=== PATIENT | male | born 1940 | race Caucasian/White ===

== ENCOUNTER 2017-01-03 12:45 | Inpatient (IN) | payer MEDICARE ==
[~2017-01-03] VITALS: Ht 185.4 cm; Wt 86.2 kg
[~2017-01-03 12:45] MED LIST: AMIO200T2 PO; ASPI81TA9 PO; BUDE0.5A3 IH; CLIN-44 PO; DILT240C32 PO; FEXO60TA25 PO; FINA5TAB4 PO; FLUT16SP NS; FORM12CA IH; IPRA3AMP IH; LEVO50TA5 PO; LIPITOR80 MG PO; PROAIR HFA8.5 GM IH
--- NOTE | 2017-01-03 13:20 | ED.ADGEN ---
Past Medical History Past Medical History: A-Fib, Asthma, COPD, CVA, High Cholesterol, Heart Disease , Hypothyroid Past Surgical History: Pacemaker, Other Additional Past Surgical Histo: CARDIAC STENT, LEFT HAND AND SHOULER, BILAT KNEE Alcohol Use: None Drug Use: None Adult General Chief Complaint Chief Complaint: SHORTNESS OF BREATH HPI HPI Patient is a 76 year old man, history of atrial fibrillation, with pacemaker AICD in place, CVA, hypertension, COPD, hypercholesterolemia, who presents the emergency department with complaint of shortness of breath over the past several days. It is associated with lightheadedness, shortness breath occurs with exertion, none at rest. No chest pain. No nausea, other GI or symptoms. Denies similar symptoms previously. Patient was seen by his primary care provider yesterday, was told that it could be a virus, was told to come back today for additional evaluation, when he returns today, was noted to be hypoxic with an oxygen saturation low 90s, with no improvement in his symptoms, and was sent to the ED for additional evaluation. Oxygen saturation is 93% on room air, denies any weakness, numbness or tingling, nausea or vomiting, states that the shortness of breath associated with a cough, no productive of sputum, no fevers , no chills, pneumonia and influenza vaccinations are up-to-date. No history of DVT or PE. Patient takes Coumadin daily, INR was last checked approximately 3 weeks ago was 2 at that time. No recent travel or surgery, no change in medication or missed doses of medication. Review of Systems Review of Systems Constitutional: Denies fever or chills. [] Eyes: Denies change in visual acuity. [] HENT: Denies nasal congestion or sore throat. [] Respiratory: Cough, nonproductive, shortness of breath.] Cardiovascular: Denies chest pain or edema. [] GI: Denies abdominal pain, nausea, vomiting, bloody stools or diarrhea. [] : Denies dysuria. [] Musculoskeletal: Denies back pain or joint pain. [] Integument: Denies rash. [] Neurologic: Denies headache, focal weakness or sensory changes. [] Endocrine: Denies polyuria or polydipsia. [] Lymphatic: Denies swollen glands. [] Psychiatric: Denies depression or anxiety. [] Current Medications Current Medications Current Medications Medications (Trade) Dose Ordered Sig/Negar Start Time Stop Time Status Last Admin Dose Admin Acetaminophen (Tylenol) 650 mg PRN Q4HRS PRN 01/03/17 14:45 01/04/17 14:44 Albuterol/ Ipratropium (Duoneb) 3 ml RTQID 01/03/17 16:00 01/04/17 15:59 Ondansetron HCl 4 mg 4 mg PRN Q8HRS PRN 01/03/17 14:45 01/04/17 14:44 Oseltamivir Phosphate (Tamiflu) 75 mg BID 01/03/17 15:00 01/07/17 21:01 Sodium Chloride (Iv Sodium Chloride 0.9% 1000ml Bag) 1,000 ml @ 100 mls/hr Q10H 01/03/17 14:43 01/04/17 14:42 Allergies Allergies Allergies Coded Allergies Type Severity Reaction Last Updated Verified levofloxacin Allergy Severe RUPTURE OF ACHILLES TENDON 03/22/14 Yes fluticasone Allergy Intermediate MAKES SORES 03/22/14 Yes salmeterol Allergy Intermediate MAKES SORES 03/22/14 Yes Sulfa (Sulfonamide Antibiotics) Allergy Mild "MAKES SORES" 03/22/14 Yes budesonide Allergy Mild RASH 03/22/14 Yes amiodarone Allergy Unknown 03/13/16 Yes montelukast Allergy Unknown EAR PAIN 03/22/14 Yes Physical Exam Physical Exam Constitutional: Well developed, well nourished, no acute distress, non-toxic appearance. [] HENT: Normocephalic, atraumatic, bilateral external ears normal, oropharynx moist, no oral exudates, nose normal. [] Eyes: PERRLA, EOMI, conjunctiva normal, no discharge. [] Neck: Normal range of motion, no tenderness, supple, no stridor. [] Cardiovascular:Heart rate regular rhythm, no murmur, S1, S2, no rubs or gallops. [] Lungs & Thorax: Patient with rhonchi noted on the left, no wheezing, no rales, no chest wall tenderness or crepitus, no lesions identified. [] Abdomen: Bowel sounds normal, soft, no tenderness, no masses, no pulsatile masses. [] Skin: Warm, dry, no erythema, no rash. [] Back: No tenderness, no CVA tenderness. [] Extremities: No tenderness, no cyanosis, no clubbing, ROM intact, no edema. Negative Homans sign. [] Neurologic: Alert and oriented X 3, normal motor function, normal sensory function, no focal deficits noted. [] Psychologic: Affect normal, judgement normal, mood normal. [] Current Patient Data Vital Signs Vital Signs Date Time Temp Pulse Resp B/P Pulse Ox O2 Delivery O2 Flow Rate FiO2 01/03/17 12:53 98.2 94 20 180/73 93 Room Air 98.2 Lab Values Laboratory Tests Test 01/03/17 13:19 01/03/17 13:49 01/03/17 13:58 White Blood Count 4.0x10^3/uL (4.0-11.0) Red Blood Count 5.23x10^6/uL (4.30-5.70) Hemoglobin 15.3g/dL (13.0-17.5) Hematocrit 44.2% (39.0-53.0) Mean Corpuscular Volume 85fL (79-100) Mean Corpuscular Hemoglobin 29pg (25-35) Mean Corpuscular Hemoglobin Concent 35g/dL (31-37) Red Cell Distribution Width 14.6% (11.5-14.5) H Platelet Count 161x10^3/uL (140-400) Neutrophils (%) (Auto) 88% (31-73) H Lymphocytes (%) (Auto) 8% (24-48) L Monocytes (%) (Auto) 4% (0-9) Eosinophils (%) (Auto) 0% (0-3) Basophils (%) (Auto) 1% (0-3) Neutrophils # (Auto) 3.5x10^3uL (1.8-7.7) Lymphocytes # (Auto) 0.3x10^3/uL (1.0-4.8) L Monocytes # (Auto) 0.2x10^3/uL (0.0-1.1) Eosinophils # (Auto) 0.0x10^3/uL (0.0-0.7) Basophils # (Auto) 0.0x10^3/uL (0.0-0.2) Platelet Estimate Pending Prothrombin Time 23.8SEC (11.7-14.0) H Prothrombin Time INR 2.3 (0.8-1.1) H PTT 54SEC (24-38) H Sodium Level 135mmol/L (136-145) L Potassium Level 4.7mmol/L (3.5-5.1) Chloride Level 102mmol/L (98-107) Carbon Dioxide Level 23mmol/L (21-32) Anion Gap 10 (6-14) Blood Urea Nitrogen 27mg/dL (8-26) H Creatinine 1.1mg/dL (0.7-1.3) Estimated GFR (Cockcroft-Gault) 65.1 BUN/Creatinine Ratio 25 (6-20) H Glucose Level 137mg/dL (70-99) H Calcium Level 9.4mg/dL (8.5-10.1) Total Bilirubin 0.8mg/dL (0.2-1.0) Aspartate Amino Transferase (AST) 42U/L (15-37) H Alanine Aminotransferase (ALT) 23U/L (16-63) Alkaline Phosphatase 87U/L (46-116) Troponin I Quantitative 0.048ng/mL (0.000-0.055) NS-Ytj-S-Type Natriuretic Peptide 800pg/mL (0-449) H Total Protein 8.2g/dL (6.4-8.2) Albumin 2.9g/dL (3.4-5.0) L Albumin/Globulin Ratio 0.5 (1.0-1.7) L Influenza Type A Antigen Negative (NEGATIVE) Influenza Type B Antigen Positive (NEGATIVE) Urine Collection Type Unknown Urine Color Yellow Urine Clarity Clear Urine pH 5.0 Urine Specific Tyler 1.020 Urine Protein Negativemg/dL (NEG-TRACE) Urine Glucose (UA) Negativemg/dL (NEG) Urine Ketones (Stick) Negativemg/dL (NEG) Urine Blood Negative (NEG) Urine Nitrite Negative (NEG) Urine Bilirubin Negative (NEG) Urine Urobilinogen Dipstick 1.0mg/dL (0.2 mg/dL) Urine Leukocyte Esterase Negative (NEG) Urine RBC 0/HPF (0-2) Urine WBC 0/HPF (0-4) Urine Squamous Epithelial Cells Few/LPF Urine Bacteria 0/HPF (0-FEW) Urine Hyaline Casts Occasional/HPF Urine Mucus Marked/LPF Laboratory Tests 01/03/17 13:19 Laboratory Tests 01/03/17 13:19 EKG EKG EC: Left axis deviation with nonspecific and ventricular block noted, patient with history of AICD placement, patient is in sinus rhythm, QTC is 508, RI 178, heart rate of 104, QRS of 166, do not visualize pacemaker spikes. Abnormal ECG. As interpreted by me. [] Radiology/Procedures Radiology/Procedures Pacemaker interrogation performed at bedside with [employer]: Pacemaker is functioning properly, patient in sinus rhythm, no concerning events recorded. Report attached and chart. [] Impressions: [facility] [address] [place] [address] IMAGING REPORT Signed PATIENT: NAMRATA MAHAJAN ACCOUNT: [id number] : 1940 LOCATION: ER AGE: 76 SEX: M EXAM STATUS: PRE ER ORD. PHYSICIAN: CECILIA FLOREZ DO REASON: SOA PROCEDURE: PORTABLE CHEST 1V Examination: Single frontal view of the chest History: History of shortness of breath, cough Comparison: 05/17/2016 Findings: The cardiomediastinal silhouette grossly appears unremarkable. A left-sided cardiac pacer is unchanged. There is no acute infiltrate or visualized pneumothorax identified. Impression: No acute cardiopulmonary findings. DICTATED and SIGNED BY: BARBRA VELASQUEZ MD DATE: 01/03/17 1331 CC: CECILIA FLOREZ DO; JOHNNY MATIAS DO ~ Course & Med Decision Making Course & Med Decision Making Pertinent Labs and Imaging studies reviewed. (See chart for details) No history of supplemental oxygen use. Patient with hypoxia, 88% on room air at rest, fluctuates up into the low 90s, coarse breath sounds noted bilaterally but especially in the left lung field, chest x-ray does not reveal any evidence of infiltrate. Patient with a positive influenza type B swab in the emergency department. I believe that his examination and symptoms are consistent with a viral etiology. No indications for antibiotics or additional imaging at this time. I did discuss findings with patient at bedside, due to his degree of hypoxia, generalized weakness and malaise he is agreeable for admission to the hospital for continued monitoring and treatment, including nebulizer treatments , Tamiflu, and supportive measures as stated. Patient now relates that he had a positive flu exposure among family members, and was treated with Tamiflu prophylactically several weeks ago. As stated, he did receive his influenza vaccination. Findings as above discussed with Dr. Figueroa of internal medicine, patient accepted to her service as a full admission to the medical telemetry floor for monitoring, supportive measures as stated above, bridge orders entered per discussion. Dragon Disclaimer Dragon Disclaimer This electronic medical record was generated, in whole or in part, using a voice recognition dictation system. Departure Impression: Primary Impression: Influenza B Additional Impressions: Hypoxia COPD (chronic obstructive pulmonary disease) COPD exacerbation Disposition: ADMITTED INPATIENT Admitting Physician: Other Condition: IMPROVED Problem Qualifiers Additional Impressions: COPD (chronic obstructive pulmonary disease) COPD type: COPD with acute exacerbation Qualified Code: J44.1 - Chronic obstructive pulmonary disease with (acute) exacerbation CECILIA FLOREZ DO Jan 03, 2017 13:20
--- NOTE | 2017-01-03 13:35 | RAD ---
Examination: Single frontal view of the chest History: History of shortness of breath, cough Comparison: 05/17/2016 Findings: The cardiomediastinal silhouette grossly appears unremarkable. A left-sided cardiac pacer is unchanged. There is no acute infiltrate or visualized pneumothorax identified. Impression: No acute cardiopulmonary findings.
[2017-01-03 13:40] LABS: BASO % 1 % (0-3); EOS % 0 % (0-3); HEMATOCRIT 44.2 % (39.0-53.0); HEMOGLOBIN 15.3 g/dL (13.0-17.5); LYMPH # 0.3 x10^3/uL (1.0-4.8); LYMPH % 8 % (24-48); MEAN CORPUSCULAR HEMOGLOBIN 29 pg (25-35); MEAN CORPUSCULAR HGB CONC 35 g/dL (31-37); MEAN CORPUSCULAR VOLUME 85 fL (79-100); MONO % 4 % (0-9); NEUT % 88 % (31-73); PLATELET COUNT 161 x10^3/uL (140-400); RED BLOOD COUNT 5.23 x10^6/uL (4.30-5.70); RED CELL DISTRIBUTION WIDTH 14.6 % (11.5-14.5)
--- NOTE | 2017-01-03 13:43 | EKG ---
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
[2017-01-03 13:44] LABS: CALCIUM 9.4 mg/dL (8.5-10.1); CREATININE 1.1 mg/dL (0.7-1.3); GFR 65.1; POTASSIUM 4.7 mmol/L (3.5-5.1)
[2017-01-03 13:50] LABS: ALBUMIN 2.9 g/dL (3.4-5.0); ALBUMIN/GLOBULIN RATIO 0.5 (1.0-1.7); TOTAL BILIRUBIN 0.8 mg/dL (0.2-1.0); TOTAL PROTEIN 8.2 g/dL (6.4-8.2)
[2017-01-03 14:05] LABS: BILIRUBIN,URINE NEGATIVE (NEG); GLUCOSE,URINE NEGATIVE (NEG); NITRITE,URINE NEGATIVE (NEG); PROTEIN,URINE NEGATIVE (NEG-TRACE)
[2017-01-03 14:25] LABS: OBC FLU VALID
[2017-01-03 14:31] LABS: BACTERIA,URINE 0 /HPF (0-FEW); RBC,URINE 0 /HPF (0-2); WBC,URINE 0 /HPF (0-4)
[2017-01-03 14:32] LABS: SQUAMOUS EPITHELIAL CELL,UR FEW /LPF
[2017-01-03 14:34] LABS: INR 2.3 (0.8-1.1); PROTHROMBIN TIME PATIENT 23.8 SEC (11.7-14.0)
[2017-01-03] MEDS ORDERED: IPRATRPIUM/ALBUTEROL 0.5/2.5MG 3 ML NEBU. NEB ONE (14:45)
[2017-01-03] MEDS ORDERED: ACETAMINOPHEN 325 MG TABLET. PO PRN (14:45)
[2017-01-03] MEDS ORDERED: ONDANSETRON PF 4 MG/2 ML VIAL. IV PRN (14:45)
[2017-01-03] MEDS ORDERED: FINA5TAB PO ×2 (15:06→16:09)
[2017-01-03] MEDS ORDERED: WARF3TAB PO (15:06)
[2017-01-03] MEDS ORDERED: NITR0.4T6 SL (15:07)
[2017-01-03] MEDS: OSELTAMIVIR 75 MG CAPSULE PO SCH ×2 (15:22→20:57)
[2017-01-03] MEDS: IV NORMAL SALINE 1000ML BAG 1,000 ML IV SCH (15:23)
[2017-01-03] MEDS ORDERED: IPRATRPIUM/ALBUTEROL 0.5/2.5MG 3 ML NEBU. NEB SCH (16:00)
[2017-01-03] MEDS ORDERED: AMOX1TAB61 PO (16:09)
[2017-01-03] MEDS ORDERED: PRED20TA PO (16:09)
[2017-01-03] MEDS ORDERED: ALBU8.5H5 IH (16:09)
[2017-01-03] MEDS ORDERED: GUAI12003 PO (16:09)
[2017-01-03 16:17] VITALS: BP 141/86
[2017-01-03 16:31] LABS: PLT ESTIMATE ADEQUATE (ADEQUATE); TOXIC GRANULATION SLIGHT; TOXIC VACUOLATION SLIGHT
--- NOTE | 2017-01-03 17:15 | ACF ---
Admission Forms Criteria COPD Clinical Indications for Admission to Inpatient Care (Place 'X' for any and all applicable criteria): Admission is indicated for ANY ONE of the following (1)(2)(3): [ ]I. Acute exacerbation by high-risk comorbidity (e.g., pneumonia, dysrhythmia, heart failure, pleural effusion, pneumothorax) or severe underlying COPD (e.g., steroid dependent) [X]II. Inpatient admission required rather than observation care (see Chronic Obstructive Pulmonary Disease: Observation Care) because of ANY ONE of the following: [X]a) New or pre-existing signs or symptoms of COPD (eg, dyspnea or Tachypnea at rest or with minimal activity) that persist despite outpatient and observation care treatment [ ]b) New-onset hypoxemia (room air SaO2 less than 90%, PO2 less than 60 mm Hg (8.0 kPa)) that persists despite outpatient and observation care treatment [ ]c) Worsening of pre-existing hypoxemia (eg, new or increased requirement for supplemental oxygen to maintain oxygenation at baseline level) that persists despite outpatient and observation care treatment, with oxygen treatment needs performable only in acute inpatient setting [ ]d) Hypercarbia (PCO2 greater than 40 mm Hg (5.3 kPa))-induced respiratory acidosis (pH less than 7.35) that persists despite outpatient and observation care treatment [ ]e) Supplemental oxygen or respiratory treatments for over 24 hours that are performable only in acute inpatient setting [ ]f) Chest tube placement with active evacuation (e.g., suction, drainage) (5) [ ]g) Other condition, treatment or monitoring requiring inpatient admission [ ]III. Planned invasive surgical or diagnostic procedures requiring acute- care hospitalization [ ]IV. Acute respiratory failure (e.g., uncompensated hypercarbia, severe hypoxemia) [ ]V. Severe comorbid condition (e.g., severe steroid myopathy, acute vertebral fracture) that has acutely worsened pulmonary function [ ]. Confusion state, lethargy, obtundation, stupor or coma Extended stay beyond goal length of stay may be needed for (31)(32): [ ]a ) Respiratory Failure. [ ]b) Severe or persisting hypoxemia or hypercarbia [ ]c) Severe or persistent dyspnea [ ]d) Comorbidities (e.g. chronic heart failure, atrial fibrillation with rapid response, pneumonia) [ ]e) Malnutrition The original [facility] content created by [facility] has been revised. The portions of the content which have been revised are identified through the use of italic text or in bold, and [facility] has neither reviewed nor approved the modified material. All other unmodified content is copyright [facility]. Please see references footnoted in the original [facility] edition 2016 Admission Criteria Met?: Yes HENRRY SOTO Jan 03, 2017 17:15
[2017-01-03] MEDS: IPRATRPIUM/ALBUTEROL 0.5/2.5MG 3 ML NEBU. NEB SCH (19:07)
[2017-01-03 19:30] VITALS: BP 143/78
[2017-01-03] MEDS ORDERED: NITROGLYCERIN SUBLINGUAL 0.4 MG BOTTLE OF 25. SL PRN (20:00)
[2017-01-03] MEDS ORDERED: methylPREDNISolone SOD SUCC PF 125 MG/2 ML VIAL. IV ONE (20:30)
[2017-01-03] MEDS: ATORVASTATIN CALCIUM 40 MG TABLET. PO SCH (20:57)
[2017-01-03] MEDS: WARFARIN 3 MG TABLET. PO SCH (20:57)
[2017-01-03] MEDS ORDERED: IPRATRPIUM/ALBUTEROL 0.5/2.5MG 3 ML NEBU. IH SCH (21:00)
--- NOTE | 2017-01-03 21:41 | HP ---
ADMIT DATE: 01/03/2017 CHIEF COMPLAINT: Shortness of breath. HISTORY OF PRESENT ILLNESS: The patient is a 76-year-old never smoker who carries a diagnosis of COPD as well as CAD, AFib, high cholesterol, hypothyroidism, who presented to the Emergency Room with worsening shortness of breath. He is unable to actually tell me how many days or weeks this has been going on. He relates it has been getting worse over the past several days. Has significant shortness of breath with exertion. Denies any at rest, although clearly does not appear comfortable. Currently denies any chest pain, any palpitations, fevers, chills or GI, symptoms. He relates that he was admitted to the hospital about 3 years ago when he had a pacemaker placement, but cannot remember that he was ever admitted for COPD. In the Emergency Room, he was found with hypoxia on room air. Flu screen was positive for influenza B and he was promptly admitted for further management and care. PAST MEDICAL HISTORY: COPD, CAD, AFib, hypertension, hypercholesterolemia, hypothyroidism, osteoarthritis, status post bilateral knee surgeries as well as hand and shoulder on the left. FAMILY HISTORY: The patient denies any diseases in his family, although questionable. SOCIAL HISTORY: Lives with his . Never smoked. Denies any alcohol or drug use. 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 ALLERGIES: SULFA, AMIODARONE, BUDESONIDE, FLUTICASONE, LEVAQUIN, MONTELUKAST AND SALMETEROL. MEDICATIONS: MAR reconciled with home medications. REVIEW OF SYSTEMS: Positive for respiratory symptoms as above. No fevers, chills. No GI symptoms. Rest of organ system review is negative. PHYSICAL EXAMINATION: VITAL SIGNS: From today show a blood pressure of 148/86, heart rate of 94, respiratory rate is 16. He is afebrile. GENERAL: This is a well-nourished, well developed 76-year-old gentleman, alert and oriented, in no acute distress. HEENT: Shows no scleral icterus. NECK: Supple. LUNGS: Fairly clear bilaterally, but with upper airway rhonchi. CARDIOVASCULAR: Heart has regular rate and rhythm. ABDOMEN: Has positive bowel sounds, soft, nontender. EXTREMITIES: Show no edema. SKIN: Warm, soft and dry. LABORATORY DATA: CBC with a WBC of 4.0, hemoglobin 15, platelets of 161. Differential with 88% neutrophils. Chemistries with a BUN and creatinine of 27 and 1. Electrolytes within normal. LFTs within normal. Initial troponin and proBNP minimally elevated. Urine is negative. Serology for influenza B positive. Imaging shows a chest x-ray with no acute cardiopulmonary findings. ASSESSMENT AND PLAN: The patient is a 76-year-old gentleman who presents with significant shortness of breath, hypoxia and a diagnosis of influenza. We will admit, he has been started on Tamiflu, which will be continued. He will get a dose of methylprednisolone tonight for potential chronic obstructive pulmonary disease exacerbation. We will continue steroids in the morning. He will have nebulizers as well as supplemental O2. From a cardiology standpoint, he appears fairly stable at this time. We will continue all his home medications. He is on Coumadin for atrial fibrillation. We will continue that and monitoring INR. We will start proton pump inhibitor given the steroids he will be receiving. ALLYSON CHAO MD DR: MAXIMILIANO/oz JOB#: [id number] / [id number] [employer]
[2017-01-03 23:53] VITALS: BP 132/82
[2017-01-04] MEDS: ALBUTEROL SULFATE 2.5 MG/3 ML NEBU. NEB PRN (01:55)
[2017-01-04 03:00] VITALS: BP 129/82
[2017-01-04 07:00] VITALS: BP 130/75
[2017-01-04] MEDS: IPRATRPIUM/ALBUTEROL 0.5/2.5MG 3 ML NEBU. NEB SCH ×4 (07:47→20:10)
[2017-01-04] MEDS: OSELTAMIVIR 75 MG CAPSULE PO SCH ×2 (08:47→21:31)
[2017-01-04] MEDS: FINASTERIDE 5 MG TABLET PO SCH (08:47)
[2017-01-04] MEDS: PREDNISONE 20 MG TABLET PO SCH (08:47)
--- NOTE | 2017-01-04 09:02 | PDOC ---
PROGRESS NOTES Chief Complaint Chief Complaint Shortness of breath, Hypoxia History of Present Illness History of Present Illness No acute events overnight. Patient is coughing during evaluation but denies having a cough upon admission. He reports his shortness of breath is improving. Vitals Vitals Vital Signs Date Time Temp Pulse Resp B/P Pulse Ox O2 Delivery O2 Flow Rate FiO2 01/04/17 07:49 95 Room Air 01/04/17 07:00 96.1 88 14 130/75 2.0 96.1 Physical Exam General: Alert, Cooperative, No acute distress Heart: Regular rate, No murmurs Lungs: Clear, Other (no wheezing) Abdomen: Soft, No tenderness Extremities: No cyanosis, No edema Skin: No significant lesion Labs LABS Laboratory Tests Test 01/03/17 13:19 01/03/17 13:49 01/03/17 13:58 White Blood Count 4.0x10^3/uL (4.0-11.0) Red Blood Count 5.23x10^6/uL (4.30-5.70) Hemoglobin 15.3g/dL (13.0-17.5) Hematocrit 44.2% (39.0-53.0) Mean Corpuscular Volume 85fL (79-100) Mean Corpuscular Hemoglobin 29pg (25-35) Mean Corpuscular Hemoglobin Concent 35g/dL (31-37) Red Cell Distribution Width 14.6% (11.5-14.5) Platelet Count 161x10^3/uL (140-400) Neutrophils (%) (Auto) 88% (31-73) Lymphocytes (%) (Auto) 8% (24-48) Monocytes (%) (Auto) 4% (0-9) Eosinophils (%) (Auto) 0% (0-3) Basophils (%) (Auto) 1% (0-3) Neutrophils # (Auto) 3.5x10^3uL (1.8-7.7) Lymphocytes # (Auto) 0.3x10^3/uL (1.0-4.8) Monocytes # (Auto) 0.2x10^3/uL (0.0-1.1) Eosinophils # (Auto) 0.0x10^3/uL (0.0-0.7) Basophils # (Auto) 0.0x10^3/uL (0.0-0.2) Segmented Neutrophils % 69% (35-66) Band Neutrophils % 21% (0-9) Lymphocytes % 9% (24-48) Monocytes % 1% (0-10) Toxic Granulation Slight Toxic Vacuolation Slight Platelet Estimate Adequate (ADEQUATE) Prothrombin Time 23.8SEC (11.7-14.0) Prothromb Time International Ratio 2.3 (0.8-1.1) Activated Partial Thromboplast Time 54SEC (24-38) Sodium Level 135mmol/L (136-145) Potassium Level 4.7mmol/L (3.5-5.1) Chloride Level 102mmol/L (98-107) Carbon Dioxide Level 23mmol/L (21-32) Anion Gap 10 (6-14) Blood Urea Nitrogen 27mg/dL (8-26) Creatinine 1.1mg/dL (0.7-1.3) Estimated GFR (Cockcroft-Gault) 65.1 BUN/Creatinine Ratio 25 (6-20) Glucose Level 137mg/dL (70-99) Calcium Level 9.4mg/dL (8.5-10.1) Total Bilirubin 0.8mg/dL (0.2-1.0) Aspartate Amino Transf (AST/SGOT) 42U/L (15-37) Alanine Aminotransferase (ALT/SGPT) 23U/L (16-63) Alkaline Phosphatase 87U/L (46-116) Troponin I Quantitative 0.048ng/mL (0.000-0.055) OP-Imn-B-Type Natriuretic Peptide 800pg/mL (0-449) Total Protein 8.2g/dL (6.4-8.2) Albumin 2.9g/dL (3.4-5.0) Albumin/Globulin Ratio 0.5 (1.0-1.7) Influenza Type A Antigen Negative (NEGATIVE) Influenza Type B Antigen Positive (NEGATIVE) Urine Collection Type Unknown Urine Color Yellow Urine Clarity Clear Urine pH 5.0 Urine Specific [place] 1.020 Urine Protein Negativemg/dL (NEG-TRACE) Urine Glucose (UA) Negativemg/dL (NEG) Urine Ketones (Stick) Negativemg/dL (NEG) Urine Blood Negative (NEG) Urine Nitrite Negative (NEG) Urine Bilirubin Negative (NEG) Urine Urobilinogen Dipstick 1.0mg/dL (0.2 mg/dL) Urine Leukocyte Esterase Negative (NEG) Urine RBC 0/HPF (0-2) Urine WBC 0/HPF (0-4) Urine Squamous Epithelial Cells Few/LPF Urine Bacteria 0/HPF (0-FEW) Urine Hyaline Casts Occasional/HPF Urine Mucus Marked/LPF Review of Systems Review of Systems Denies chest pain, shortness of breath is improving. Denies fever and chills. Assessment and Plan Assessmemt and Plan Problems Medical Problems: (1) COPD (chronic obstructive pulmonary disease) Status: Acute (2) COPD exacerbation Status: Acute (3) Hypoxia Status: Acute (4) Influenza B Status: Acute ASSESSMENT: Influenza B Shortness of breath Hypoxia COPD CAD Afib Hypothyroidism PLAN: Continue tamiflu and steroids Continue nebulizers Supplemental oxygen as needed Continue coumadin Will monitor INR daily Continue fluids Trend daily labs Problems: Comment Review of Relevant I have reviewed the following items sarbjit (where applicable) has been applied. Labs Laboratory Tests Test 01/03/17 13:19 01/03/17 13:49 01/03/17 13:58 White Blood Count 4.0x10^3/uL (4.0-11.0) Red Blood Count 5.23x10^6/uL (4.30-5.70) Hemoglobin 15.3g/dL (13.0-17.5) Hematocrit 44.2% (39.0-53.0) Mean Corpuscular Volume 85fL (79-100) Mean Corpuscular Hemoglobin 29pg (25-35) Mean Corpuscular Hemoglobin Concent 35g/dL (31-37) Red Cell Distribution Width 14.6% (11.5-14.5) Platelet Count 161x10^3/uL (140-400) Neutrophils (%) (Auto) 88% (31-73) Lymphocytes (%) (Auto) 8% (24-48) Monocytes (%) (Auto) 4% (0-9) Eosinophils (%) (Auto) 0% (0-3) Basophils (%) (Auto) 1% (0-3) Neutrophils # (Auto) 3.5x10^3uL (1.8-7.7) Lymphocytes # (Auto) 0.3x10^3/uL (1.0-4.8) Monocytes # (Auto) 0.2x10^3/uL (0.0-1.1) Eosinophils # (Auto) 0.0x10^3/uL (0.0-0.7) Basophils # (Auto) 0.0x10^3/uL (0.0-0.2) Segmented Neutrophils % 69% (35-66) Band Neutrophils % 21% (0-9) Lymphocytes % 9% (24-48) Monocytes % 1% (0-10) Toxic Granulation Slight Toxic Vacuolation Slight Platelet Estimate Adequate (ADEQUATE) Prothrombin Time 23.8SEC (11.7-14.0) Prothromb Time International Ratio 2.3 (0.8-1.1) Activated Partial Thromboplast Time 54SEC (24-38) Sodium Level 135mmol/L (136-145) Potassium Level 4.7mmol/L (3.5-5.1) Chloride Level 102mmol/L (98-107) Carbon Dioxide Level 23mmol/L (21-32) Anion Gap 10 (6-14) Blood Urea Nitrogen 27mg/dL (8-26) Creatinine 1.1mg/dL (0.7-1.3) Estimated GFR (Cockcroft-Gault) 65.1 BUN/Creatinine Ratio 25 (6-20) Glucose Level 137mg/dL (70-99) Calcium Level 9.4mg/dL (8.5-10.1) Total Bilirubin 0.8mg/dL (0.2-1.0) Aspartate Amino Transf (AST/SGOT) 42U/L (15-37) Alanine Aminotransferase (ALT/SGPT) 23U/L (16-63) Alkaline Phosphatase 87U/L (46-116) Troponin I Quantitative 0.048ng/mL (0.000-0.055) QD-Ffe-P-Type Natriuretic Peptide 800pg/mL (0-449) Total Protein 8.2g/dL (6.4-8.2) Albumin 2.9g/dL (3.4-5.0) Albumin/Globulin Ratio 0.5 (1.0-1.7) Influenza Type A Antigen Negative (NEGATIVE) Influenza Type B Antigen Positive (NEGATIVE) Urine Collection Type Unknown Urine Color Yellow Urine Clarity Clear Urine pH 5.0 Urine Specific [place] 1.020 Urine Protein Negativemg/dL (NEG-TRACE) Urine Glucose (UA) Negativemg/dL (NEG) Urine Ketones (Stick) Negativemg/dL (NEG) Urine Blood Negative (NEG) Urine Nitrite Negative (NEG) Urine Bilirubin Negative (NEG) Urine Urobilinogen Dipstick 1.0mg/dL (0.2 mg/dL) Urine Leukocyte Esterase Negative (NEG) Urine RBC 0/HPF (0-2) Urine WBC 0/HPF (0-4) Urine Squamous Epithelial Cells Few/LPF Urine Bacteria 0/HPF (0-FEW) Urine Hyaline Casts Occasional/HPF Urine Mucus Marked/LPF Laboratory Tests Test 01/03/17 13:19 01/03/17 13:49 01/03/17 13:58 White Blood Count 4.0x10^3/uL (4.0-11.0) Red Blood Count 5.23x10^6/uL (4.30-5.70) Hemoglobin 15.3g/dL (13.0-17.5) Hematocrit 44.2% (39.0-53.0) Mean Corpuscular Volume 85fL (79-100) Mean Corpuscular Hemoglobin 29pg (25-35) Mean Corpuscular Hemoglobin Concent 35g/dL (31-37) Red Cell Distribution Width 14.6% (11.5-14.5) Platelet Count 161x10^3/uL (140-400) Neutrophils (%) (Auto) 88% (31-73) Lymphocytes (%) (Auto) 8% (24-48) Monocytes (%) (Auto) 4% (0-9) Eosinophils (%) (Auto) 0% (0-3) Basophils (%) (Auto) 1% (0-3) Neutrophils # (Auto) 3.5x10^3uL (1.8-7.7) Lymphocytes # (Auto) 0.3x10^3/uL (1.0-4.8) Monocytes # (Auto) 0.2x10^3/uL (0.0-1.1) Eosinophils # (Auto) 0.0x10^3/uL (0.0-0.7) Basophils # (Auto) 0.0x10^3/uL (0.0-0.2) Segmented Neutrophils % 69% (35-66) Band Neutrophils % 21% (0-9) Lymphocytes % 9% (24-48) Monocytes % 1% (0-10) Toxic Granulation Slight Toxic Vacuolation Slight Platelet Estimate Adequate (ADEQUATE) Prothrombin Time 23.8SEC (11.7-14.0) Prothromb Time International Ratio 2.3 (0.8-1.1) Activated Partial Thromboplast Time 54SEC (24-38) Sodium Level 135mmol/L (136-145) Potassium Level 4.7mmol/L (3.5-5.1) Chloride Level 102mmol/L (98-107) Carbon Dioxide Level 23mmol/L (21-32) Anion Gap 10 (6-14) Blood Urea Nitrogen 27mg/dL (8-26) Creatinine 1.1mg/dL (0.7-1.3) Estimated GFR (Cockcroft-Gault) 65.1 BUN/Creatinine Ratio 25 (6-20) Glucose Level 137mg/dL (70-99) Calcium Level 9.4mg/dL (8.5-10.1) Total Bilirubin 0.8mg/dL (0.2-1.0) Aspartate Amino Transf (AST/SGOT) 42U/L (15-37) Alanine Aminotransferase (ALT/SGPT) 23U/L (16-63) Alkaline Phosphatase 87U/L (46-116) Troponin I Quantitative 0.048ng/mL (0.000-0.055) HP-Qau-W-Type Natriuretic Peptide 800pg/mL (0-449) Total Protein 8.2g/dL (6.4-8.2) Albumin 2.9g/dL (3.4-5.0) Albumin/Globulin Ratio 0.5 (1.0-1.7) Influenza Type A Antigen Negative (NEGATIVE) Influenza Type B Antigen Positive (NEGATIVE) Urine Collection Type Unknown Urine Color Yellow Urine Clarity Clear Urine pH 5.0 Urine Specific [place] 1.020 Urine Protein Negativemg/dL (NEG-TRACE) Urine Glucose (UA) Negativemg/dL (NEG) Urine Ketones (Stick) Negativemg/dL (NEG) Urine Blood Negative (NEG) Urine Nitrite Negative (NEG) Urine Bilirubin Negative (NEG) Urine Urobilinogen Dipstick 1.0mg/dL (0.2 mg/dL) Urine Leukocyte Esterase Negative (NEG) Urine RBC 0/HPF (0-2) Urine WBC 0/HPF (0-4) Urine Squamous Epithelial Cells Few/LPF Urine Bacteria 0/HPF (0-FEW) Urine Hyaline Casts Occasional/HPF Urine Mucus Marked/LPF Medications Current Medications Oseltamivir Phosphate (Tamiflu) 75 mg BID PO Last administered on 01/04/17 08: 47; Start 01/03/17 at 15:00; Stop 01/07/17 at 21:01 Albuterol/ Ipratropium (Duoneb) 3 ml 1X ONCE NEB Last administered on 15:04; Start 01/03/17 at 14:45; Stop 01/03/17 at 14:46; Status DC Ondansetron HCl 4 mg 4 mg PRN Q8HRS PRN IV NAUSEA/VOMITING; Start 01/03/17 at 14:45; Stop 01/04/17 at 14:44 Sodium Chloride (Iv Sodium Chloride 0.9% 1000ml Bag) 1,000 ml @ 100 mls/hr Q10H IV Last administered on 01/03/17 15:23; Start 01/03/17 at 14:43; Stop at 14:42 Acetaminophen (Tylenol) 650 mg PRN Q4HRS PRN PO FEVER; Start 01/03/17 at 14:45 ; Stop 01/04/17 at 14:44 Albuterol/ Ipratropium (Duoneb) 3 ml RTQID NEB Last administered on 01/03/17 19:07; Start 01/03/17 at 16:00; Stop 01/03/17 at 19:58; Status DC Albuterol Sulfate (Ventolin Neb Soln) 2.5 mg PRN Q4HRS PRN NEB SHORTNESS OF BREATH Last administered on 01/04/17 01:55; Start 01/03/17 at 20:00 Finasteride (Proscar) 5 mg DAILY PO Last administered on 01/04/17 08:47; Start 01/04/17 at 09:00 Albuterol/ Ipratropium (Duoneb) 3 ml QID IH ; Start 01/03/17 at 21:00; Status UNV Nitroglycerin (Nitrostat) 0.4 mg PRN DAILY PRN SL angina; Start 01/03/17 at 20: 00 Warfarin Sodium (Coumadin) 3 mg DAILY16 PO Last administered on 01/03/17 20:57 ; Start 01/03/17 at 20:30 Atorvastatin Calcium (Lipitor) 80 mg QHS PO Last administered on 01/03/17 20: 57; Start 01/03/17 at 21:00 Methylprednisolone Sodium Succinate (Solu-Medrol 125mg Vial) 125 mg 1X ONCE IV Last administered on 01/03/17 20:57; Start 01/03/17 at 20:30; Stop 01/03/17 at 20:31; Status DC Prednisone (Prednisone) 40 mg DAILY PO Last administered on 01/04/17 08:47; Start 01/04/17 at 09:00 Albuterol/ Ipratropium (Duoneb) 3 ml RTQID NEB Last administered on 01/04/17 07:47; Start 01/03/17 at 20:00 Warfarin Sodium (Coumadin Per Physician) 1 each PRN DAILY PRN MC SEE COMMENTS; Start 01/03/17 at 20:00 Active Scripts Active Clindamycin Hcl 150 Mg Capsule 300 Mg PO QID 10 Days Reported Mucinex (Guaifenesin) 1,200 Mg Tbmp.12hr 1,200 Tab PO BID Augmentin 875-125 Tablet (Amoxicillin/Potassium Clav) 1 Each Tablet 1 Tab PO BID Prednisone 20 Mg Tablet 3 Tab PO DAILY Proair Hfa (Albuterol Sulfate) 8.5 Gm Hfa.aer.ad 9 Gm IH Proscar (Finasteride) 5 Mg Tablet 1 Tab PO DAILY NITROGLYCERIN SubLingual (Nitroglycerin) 0.4 Mg Tab.subl 1 Tab SL UD Coumadin (Warfarin Sodium) 3 Mg Tablet 1 Tab PO DAILY Duoneb 0.5-3(2.5) Mg/3 Ml (Albuterol/Ipratropium) 3 Ml Ampul.neb 3 Ml IH QID Proair Hfa Inhaler (Albuterol Sulfate) 8.5 Gm Hfa.aer.ad 1-2 Inh IH Q4-6 HRS PRN Lipitor (Atorvastatin Calcium) 80 Mg Tablet 80 Mg PO DAILY Vitals/I & O Vital Sign - Last 24 Hours 01/03/17 01/03/17 01/03/17 01/03/17 12:53 13:25 13:55 14:25 Temp 98.2 98.2 Pulse 94 90 92 88 Resp 20 24 20 24 B/P 180/73 149/73 151/81 147/74 Pulse Ox 93 93 91 94 O2 Delivery Room Air Room Air 01/03/17 01/03/17 01/03/17 01/03/17 14:55 15:08 15:25 16:17 Temp 97.5 97.5 Pulse 86 88 94 Resp 18 18 16 B/P 144/73 137/83 141/86 Pulse Ox 93 95 94 93 O2 Delivery Room Air Room Air Room Air 01/03/17 01/03/17 01/03/17 01/03/17 19:07 19:30 20:00 23:53 Temp 98.2 97.8 98.2 97.8 Pulse 89 107 Resp B/P 143/78 132/82 Pulse Ox 98 92 94 O2 Delivery Room Air Nasal Cannula Nasal Cannula O2 Flow Rate 2.0 2.0 2.0 01/04/17 01/04/17 01/04/17 01/04/17 01:56 02:00 03:00 07:00 Temp 97.7 96.1 97.7 96.1 Pulse 95 88 Resp 24 14 B/P 129/82 130/75 Pulse Ox 95 95 93 O2 Delivery Room Air Nasal Cannula Nasal Cannula Nasal Cannula O2 Flow Rate 3.0 2.0 2.0 01/04/17 07:49 Pulse Ox 95 O2 Delivery Room Air Intake and Output 01/03/17 01/03/17 01/04/17 15:00 23:00 07:00 Intake Total 100 ml Balance 100 ml JOYNIAL K III DO Jan 04, 2017 09:02
[2017-01-04 11:00] VITALS: BP 131/65
[2017-01-04] MEDS: IV NORMAL SALINE 1000ML BAG 1,000 ML IV SCH (12:22)
[2017-01-04 15:00] VITALS: BP 124/63
[2017-01-04] MEDS: WARFARIN 3 MG TABLET. PO SCH (16:38)
[2017-01-04 19:00] VITALS: BP 145/75
[2017-01-04] MEDS: ATORVASTATIN CALCIUM 40 MG TABLET. PO SCH (21:31)
[2017-01-04 23:00] VITALS: BP 126/73
[2017-01-05] MEDS: ALBUTEROL SULFATE 2.5 MG/3 ML NEBU. NEB PRN (01:00)
[2017-01-05 03:00] VITALS: BP 150/63
[2017-01-05 05:57] LABS: BASO % 0 % (0-3); EOS % 0 % (0-3); HEMATOCRIT 39.9 % (39.0-53.0); HEMOGLOBIN 13.2 g/dL (13.0-17.5); LYMPH # 0.8 x10^3/uL (1.0-4.8); LYMPH % 10 % (24-48); MEAN CORPUSCULAR HEMOGLOBIN 29 pg (25-35); MEAN CORPUSCULAR HGB CONC 33 g/dL (31-37); MEAN CORPUSCULAR VOLUME 87 fL (79-100); MONO % 9 % (0-9); NEUT % 81 % (31-73); PLATELET COUNT 143 x10^3/uL (140-400); RED BLOOD COUNT 4.58 x10^6/uL (4.30-5.70); RED CELL DISTRIBUTION WIDTH 14.2 % (11.5-14.5)
[2017-01-05] MEDS: IPRATRPIUM/ALBUTEROL 0.5/2.5MG 3 ML NEBU. NEB SCH ×3 (06:14→11:48)
[2017-01-05 06:19] LABS: CALCIUM 8.7 mg/dL (8.5-10.1); CREATININE 0.9 mg/dL (0.7-1.3); POTASSIUM 4.4 mmol/L (3.5-5.1)
[2017-01-05 06:42] LABS: INR 3.3 (0.8-1.1); PROTHROMBIN TIME PATIENT 31.8 SEC (11.7-14.0)
[2017-01-05 07:00] VITALS: BP 131/72
--- NOTE | 2017-01-05 08:13 | PDOC ---
PROGRESS NOTES Chief Complaint Chief Complaint cc: sob A/P Influenza COPD CAD Afib Hypothyroidism PLAN SOB resolved anticipated DC today, follow up with PCP. , oral AC History of Present Illness History of Present Illness DOING BETTER Vitals Vitals Vital Signs Date Time Temp Pulse Resp B/P Pulse Ox O2 Delivery O2 Flow Rate FiO2 01/05/17 06:14 Room Air 01/05/17 03:00 98.9 86 18 150/63 98 98.9 01/04/17 23:00 2.0 Physical Exam General: Alert, Cooperative, No acute distress Heart: Regular rate, Normal S1, Normal S2, No murmurs Lungs: Clear, Other (no wheezing) Abdomen: Normal bowel sounds, Soft, No tenderness Extremities: No cyanosis, No edema Skin: No significant lesion Labs LABS Laboratory Tests Test 01/05/17 05:20 White Blood Count 8.0x10^3/uL (4.0-11.0) Red Blood Count 4.58x10^6/uL (4.30-5.70) Hemoglobin 13.2g/dL (13.0-17.5) Hematocrit 39.9% (39.0-53.0) Mean Corpuscular Volume 87fL (79-100) Mean Corpuscular Hemoglobin 29pg (25-35) Mean Corpuscular Hemoglobin Concent 33g/dL (31-37) Red Cell Distribution Width 14.2% (11.5-14.5) Platelet Count 143x10^3/uL (140-400) Neutrophils (%) (Auto) 81% (31-73) Lymphocytes (%) (Auto) 10% (24-48) Monocytes (%) (Auto) 9% (0-9) Eosinophils (%) (Auto) 0% (0-3) Basophils (%) (Auto) 0% (0-3) Neutrophils # (Auto) 6.5x10^3uL (1.8-7.7) Lymphocytes # (Auto) 0.8x10^3/uL (1.0-4.8) Monocytes # (Auto) 0.7x10^3/uL (0.0-1.1) Eosinophils # (Auto) 0.0x10^3/uL (0.0-0.7) Basophils # (Auto) 0.0x10^3/uL (0.0-0.2) Prothrombin Time 31.8SEC (11.7-14.0) Prothromb Time International Ratio 3.3 (0.8-1.1) Sodium Level 141mmol/L (136-145) Potassium Level 4.4mmol/L (3.5-5.1) Chloride Level 109mmol/L (98-107) Carbon Dioxide Level 24mmol/L (21-32) Anion Gap 8 (6-14) Blood Urea Nitrogen 32mg/dL (8-26) Creatinine 0.9mg/dL (0.7-1.3) Estimated GFR (Cockcroft-Gault) 82.0 Glucose Level 104mg/dL (70-99) Calcium Level 8.7mg/dL (8.5-10.1) Assessment and Plan Assessmemt and Plan Problems Medical Problems: (1) COPD (chronic obstructive pulmonary disease) Status: Acute (2) COPD exacerbation Status: Acute (3) Hypoxia Status: Acute (4) Influenza B Status: Acute Problems: Comment Review of Relevant I have reviewed the following items sarbjit (where applicable) has been applied. Labs Laboratory Tests Test 01/03/17 13:19 01/03/17 13:49 01/03/17 13:58 01/05/17 05:20 White Blood Count 4.0x10^3/uL (4.0-11.0) 8.0x10^3/uL (4.0-11.0) Red Blood Count 5.23x10^6/uL (4.30-5.70) 4.58x10^6/uL (4.30-5.70) Hemoglobin 15.3g/dL (13.0-17.5) 13.2g/dL (13.0-17.5) Hematocrit 44.2% (39.0-53.0) 39.9% (39.0-53.0) Mean Corpuscular Volume 85fL (79-100) 87fL (79-100) Mean Corpuscular Hemoglobin 29pg (25-35) 29pg (25-35) Mean Corpuscular Hemoglobin Concent 35g/dL (31-37) 33g/dL (31-37) Red Cell Distribution Width 14.6% (11.5-14.5) 14.2% (11.5-14.5) Platelet Count 161x10^3/uL (140-400) 143x10^3/uL (140-400) Neutrophils (%) (Auto) 88% (31-73) 81% (31-73) Lymphocytes (%) (Auto) 8% (24-48) 10% (24-48) Monocytes (%) (Auto) 4% (0-9) 9% (0-9) Eosinophils (%) (Auto) 0% (0-3) 0% (0-3) Basophils (%) (Auto) 1% (0-3) 0% (0-3) Neutrophils # (Auto) 3.5x10^3uL (1.8-7.7) 6.5x10^3uL (1.8-7.7) Lymphocytes # (Auto) 0.3x10^3/uL (1.0-4.8) 0.8x10^3/uL (1.0-4.8) Monocytes # (Auto) 0.2x10^3/uL (0.0-1.1) 0.7x10^3/uL (0.0-1.1) Eosinophils # (Auto) 0.0x10^3/uL (0.0-0.7) 0.0x10^3/uL (0.0-0.7) Basophils # (Auto) 0.0x10^3/uL (0.0-0.2) 0.0x10^3/uL (0.0-0.2) Segmented Neutrophils % 69% (35-66) Band Neutrophils % 21% (0-9) Lymphocytes % 9% (24-48) Monocytes % 1% (0-10) Toxic Granulation Slight Toxic Vacuolation Slight Platelet Estimate Adequate (ADEQUATE) Prothrombin Time 23.8SEC (11.7-14.0) 31.8SEC (11.7-14.0) Prothromb Time International Ratio 2.3 (0.8-1.1) 3.3 (0.8-1.1) Activated Partial Thromboplast Time 54SEC (24-38) Sodium Level 135mmol/L (136-145) 141mmol/L (136-145) Potassium Level 4.7mmol/L (3.5-5.1) 4.4mmol/L (3.5-5.1) Chloride Level 102mmol/L (98-107) 109mmol/L (98-107) Carbon Dioxide Level 23mmol/L (21-32) 24mmol/L (21-32) Anion Gap 10 (6-14) 8 (6-14) Blood Urea Nitrogen 27mg/dL (8-26) 32mg/dL (8-26) Creatinine 1.1mg/dL (0.7-1.3) 0.9mg/dL (0.7-1.3) Estimated GFR (Cockcroft-Gault) 65.1 82.0 BUN/Creatinine Ratio 25 (6-20) Glucose Level 137mg/dL (70-99) 104mg/dL (70-99) Calcium Level 9.4mg/dL (8.5-10.1) 8.7mg/dL (8.5-10.1) Total Bilirubin 0.8mg/dL (0.2-1.0) Aspartate Amino Transf (AST/SGOT) 42U/L (15-37) Alanine Aminotransferase (ALT/SGPT) 23U/L (16-63) Alkaline Phosphatase 87U/L (46-116) Troponin I Quantitative 0.048ng/mL (0.000-0.055) ND-Tkh-W-Type Natriuretic Peptide 800pg/mL (0-449) Total Protein 8.2g/dL (6.4-8.2) Albumin 2.9g/dL (3.4-5.0) Albumin/Globulin Ratio 0.5 (1.0-1.7) Influenza Type A Antigen Negative (NEGATIVE) Influenza Type B Antigen Positive (NEGATIVE) Urine Collection Type Unknown Urine Color Yellow Urine Clarity Clear Urine pH 5.0 Urine Specific [place] 1.020 Urine Protein Negativemg/dL (NEG-TRACE) Urine Glucose (UA) Negativemg/dL (NEG) Urine Ketones (Stick) Negativemg/dL (NEG) Urine Blood Negative (NEG) Urine Nitrite Negative (NEG) Urine Bilirubin Negative (NEG) Urine Urobilinogen Dipstick 1.0mg/dL (0.2 mg/dL) Urine Leukocyte Esterase Negative (NEG) Urine RBC 0/HPF (0-2) Urine WBC 0/HPF (0-4) Urine Squamous Epithelial Cells Few/LPF Urine Bacteria 0/HPF (0-FEW) Urine Hyaline Casts Occasional/HPF Urine Mucus Marked/LPF Laboratory Tests Test 01/05/17 05:20 White Blood Count 8.0x10^3/uL (4.0-11.0) Red Blood Count 4.58x10^6/uL (4.30-5.70) Hemoglobin 13.2g/dL (13.0-17.5) Hematocrit 39.9% (39.0-53.0) Mean Corpuscular Volume 87fL (79-100) Mean Corpuscular Hemoglobin 29pg (25-35) Mean Corpuscular Hemoglobin Concent 33g/dL (31-37) Red Cell Distribution Width 14.2% (11.5-14.5) Platelet Count 143x10^3/uL (140-400) Neutrophils (%) (Auto) 81% (31-73) Lymphocytes (%) (Auto) 10% (24-48) Monocytes (%) (Auto) 9% (0-9) Eosinophils (%) (Auto) 0% (0-3) Basophils (%) (Auto) 0% (0-3) Neutrophils # (Auto) 6.5x10^3uL (1.8-7.7) Lymphocytes # (Auto) 0.8x10^3/uL (1.0-4.8) Monocytes # (Auto) 0.7x10^3/uL (0.0-1.1) Eosinophils # (Auto) 0.0x10^3/uL (0.0-0.7) Basophils # (Auto) 0.0x10^3/uL (0.0-0.2) Prothrombin Time 31.8SEC (11.7-14.0) Prothromb Time International Ratio 3.3 (0.8-1.1) Sodium Level 141mmol/L (136-145) Potassium Level 4.4mmol/L (3.5-5.1) Chloride Level 109mmol/L (98-107) Carbon Dioxide Level 24mmol/L (21-32) Anion Gap 8 (6-14) Blood Urea Nitrogen 32mg/dL (8-26) Creatinine 0.9mg/dL (0.7-1.3) Estimated GFR (Cockcroft-Gault) 82.0 Glucose Level 104mg/dL (70-99) Calcium Level 8.7mg/dL (8.5-10.1) Medications Current Medications Oseltamivir Phosphate (Tamiflu) 75 mg BID PO Last administered on 01/04/17 21: 31; Start 01/03/17 at 15:00; Stop 01/07/17 at 21:01 Albuterol/ Ipratropium (Duoneb) 3 ml 1X ONCE NEB Last administered on 15:04; Start 01/03/17 at 14:45; Stop 01/03/17 at 14:46; Status DC Ondansetron HCl 4 mg 4 mg PRN Q8HRS PRN IV NAUSEA/VOMITING; Start 01/03/17 at 14:45; Stop 01/04/17 at 14:44; Status DC Sodium Chloride (Iv Sodium Chloride 0.9% 1000ml Bag) 1,000 ml @ 100 mls/hr Q10H IV Last administered on 01/04/17 12:22; Start 01/03/17 at 14:43; Stop at 14:42; Status DC Acetaminophen (Tylenol) 650 mg PRN Q4HRS PRN PO FEVER; Start 01/03/17 at 14:45 ; Stop 01/04/17 at 14:44; Status DC Albuterol/ Ipratropium (Duoneb) 3 ml RTQID NEB Last administered on 01/03/17 19:07; Start 01/03/17 at 16:00; Stop 01/03/17 at 19:58; Status DC Albuterol Sulfate (Ventolin Neb Soln) 2.5 mg PRN Q4HRS PRN NEB SHORTNESS OF BREATH Last administered on 01/05/17 01:00; Start 01/03/17 at 20:00 Finasteride (Proscar) 5 mg DAILY PO Last administered on 01/04/17 08:47; Start 01/04/17 at 09:00 Albuterol/ Ipratropium (Duoneb) 3 ml QID IH ; Start 01/03/17 at 21:00; Status UNV Nitroglycerin (Nitrostat) 0.4 mg PRN DAILY PRN SL angina; Start 01/03/17 at 20: 00 Warfarin Sodium (Coumadin) 3 mg DAILY16 PO Last administered on 01/04/17 16:38 ; Start 01/03/17 at 20:30 Atorvastatin Calcium (Lipitor) 80 mg QHS PO Last administered on 01/04/17 21: 31; Start 01/03/17 at 21:00 Methylprednisolone Sodium Succinate (Solu-Medrol 125mg Vial) 125 mg 1X ONCE IV Last administered on 01/03/17 20:57; Start 01/03/17 at 20:30; Stop 01/03/17 at 20:31; Status DC Prednisone (Prednisone) 40 mg DAILY PO Last administered on 01/04/17 08:47; Start 01/04/17 at 09:00 Albuterol/ Ipratropium (Duoneb) 3 ml RTQID NEB Last administered on 01/05/17 06:14; Start 01/03/17 at 20:00 Warfarin Sodium (Coumadin Per Physician) 1 each PRN DAILY PRN MC SEE COMMENTS; Start 01/03/17 at 20:00; Status Cancel Warfarin Sodium (Coumadin Per Pharmacy) 1 each PRN DAILY PRN MC SEE COMMENTS Last administered on 01/04/17 12:52; Start 01/04/17 at 13:00 Active Scripts Active Clindamycin Hcl 150 Mg Capsule 300 Mg PO QID 10 Days Reported Mucinex (Guaifenesin) 1,200 Mg Tbmp.12hr 1,200 Tab PO BID Augmentin 875-125 Tablet (Amoxicillin/Potassium Clav) 1 Each Tablet 1 Tab PO BID Prednisone 20 Mg Tablet 3 Tab PO DAILY Proair Hfa (Albuterol Sulfate) 8.5 Gm Hfa.aer.ad 9 Gm IH Proscar (Finasteride) 5 Mg Tablet 1 Tab PO DAILY NITROGLYCERIN SubLingual (Nitroglycerin) 0.4 Mg Tab.subl 1 Tab SL UD Coumadin (Warfarin Sodium) 3 Mg Tablet 1 Tab PO DAILY Duoneb 0.5-3(2.5) Mg/3 Ml (Albuterol/Ipratropium) 3 Ml Ampul.neb 3 Ml IH QID Proair Hfa Inhaler (Albuterol Sulfate) 8.5 Gm Hfa.aer.ad 1-2 Inh IH Q4-6 HRS PRN Lipitor (Atorvastatin Calcium) 80 Mg Tablet 80 Mg PO DAILY Vitals/I & O Vital Sign - Last 24 Hours 01/04/17 01/04/17 01/04/17 01/04/17 11:00 11:12 15:00 15:48 Temp 97.3 97.5 97.3 97.5 Pulse 80 77 Resp 14 14 B/P 131/65 124/63 Pulse Ox 97 96 O2 Delivery Nasal Cannula Nasal Cannula Nasal Cannula Room Air O2 Flow Rate 2.0 3.0 3.0 01/04/17 01/04/17 01/04/17 01/04/17 19:00 20:00 20:11 23:00 Temp 98.5 98.9 98.5 98.9 Pulse 76 84 Resp 20 18 B/P 145/75 126/73 Pulse Ox 98 96 97 O2 Delivery Nasal Cannula Nasal Cannula Nasal Cannula Nasal Cannula O2 Flow Rate 2.0 2.0 3.0 2.0 01/05/17 01/05/17 01/05/17 01:01 03:00 06:14 Temp 98.9 98.9 Pulse 86 Resp 18 B/P 150/63 Pulse Ox 97 98 O2 Delivery Room Air Room Air Room Air Intake and Output 01/04/17 01/04/17 01/05/17 15:00 23:00 07:00 Intake Total 120 ml Output Total 0 ml Balance 120 ml 0 ml KENDRICK MARADIAGA MD Jan 05, 2017 08:13
[2017-01-05] MEDS: OSELTAMIVIR 75 MG CAPSULE PO SCH (09:36)
[2017-01-05] MEDS: PREDNISONE 20 MG TABLET PO SCH (09:36)
[2017-01-05] MEDS: FINASTERIDE 5 MG TABLET PO SCH (09:36)
[2017-01-05] MEDS ORDERED: OSEL75CA PO (10:30)
[2017-01-05 11:00] VITALS: BP 140/60
== END 2017-01-05 15:59 | disposition home or self-care (01) | DRG 193 ==
LOC: ER 12:45 → 5 SOUTH 14:32 → ER 15:17
PROVIDERS: ADMIT Internal Medicine Hematology & Oncology; ATTEND Internal Medicine Hematology & Oncology
DX: J10.1 Influenza due to other identified influenza virus with other respiratory manifestations (principal); J96.00 Acute respiratory failure, unspecified whether with hypoxia or hypercapnia; J44.1 Chronic obstructive pulmonary disease with (acute) exacerbation; E44.1 Mild protein-calorie malnutrition; E78.00 Pure hypercholesterolemia, unspecified; I10 Essential (primary) hypertension; E03.9 Hypothyroidism, unspecified; I25.10 Atherosclerotic heart disease of native coronary artery without angina pectoris; I48.91 Unspecified atrial fibrillation; J45.909 Unspecified asthma, uncomplicated; M19.90 Unspecified osteoarthritis, unspecified site; Z95.810 Presence of automatic (implantable) cardiac defibrillator; Z79.01 Long term (current) use of anticoagulants; Z86.73 Personal history of transient ischemic attack (TIA), and cerebral infarction without residual deficits; Z95.5 Presence of coronary angioplasty implant and graft; Z88.1 Allergy status to other antibiotic agents; Z88.2 Allergy status to sulfonamides; Z88.8 Allergy status to other drugs, medicaments and biological substances
CPT/HCPCS: 36415; 71010; 80048; 80053; 81001; 83880; 84484; 85007; 85027; 85610; 85730; 87804; 93005; 94250; 94640; 94760; J2930; J7030; J7512; J7620; 99285-25

== ENCOUNTER 2017-04-02 02:48 | Inpatient (IN) | payer MEDICARE, BC ==
[~2017-04-02] VITALS: Ht 185.4 cm; Wt 101.2 kg
[2017-04-02] VITALS (20 sets, daily range): BP systolic 96–141; BP diastolic 54–78
[~2017-04-02 02:48] MED LIST changes: +ALBU8.5H8 IH; +AMOX1TAB61 PO; +ASPI-612 PO; -ASPI81TA9 PO; -CLIN-44 PO; +CLIN150C14 PO; +FINA5TAB PO; +GUAI12003 PO; +NITR0.4T22 SL; +OSEL75CA PO; +PRED20TA PO; +WARF3TAB54 PO
[2017-04-02] MEDS ORDERED: HYDROmorphone 2 MG/ML VIAL IV ONE (03:15)
[2017-04-02] MEDS ORDERED: IV NORMAL SALINE 1000ML BAG 1,000 ML IV ONE (03:15)
[2017-04-02] MEDS ORDERED: ONDANSETRON PF 4 MG/2 ML VIAL. IV ONE (03:15)
--- NOTE | 2017-04-02 03:43 | RAD ---
Examination: CT abdomen and pelvis without contrast HISTORY: History of right lower quadrant abdominal pain, right hip pain COMPARISON: None available Technique: Axial images of the abdomen and pelvis were performed without contrast. Coronal and sagittal reformats are performed. Exposure: One or more of the following individualized dose reduction techniques were utilized for this examination: 1. Automated exposure control 2. Adjustment of the mA and/or kV according to patient size 3. Use of iterative reconstruction technique FINDINGS: Mild bibasilar lung atelectasis opacity likely atelectasis or infiltrates. No evidence of free air identified in the abdomen. The evaluation of solid organs is limited lack of IV contrast. The evaluation of bowel is limited due to lack of oral contrast. The visualized noncontrasted liver, spleen, adrenals grossly appears unremarkable. The gallbladder is mildly distended The stomach is mildly distended. The visualized pancreas is grossly unremarkable. The small bowel is nondilated. Feces is noted in the colon. Few sigmoid colon diverticulosis identified. The urinary bladder is mildly distended. Moderate enlarged prostate gland. The caliber of the aorta grossly appears unremarkable. Mild aortic atherosclerosis. 2 mm intrarenal collecting system calculus identified in the right kidney. No evidence of hydronephrosis. There is a 3 mm calcification identified in the urinary bladder just distal to the left ureterovesical junction likely bladder calculus. No evidence of hydronephrosis identified in the left. There is a 4 mm calcification identified in the posterior urinary bladder likely bladder calculus. There is moderate inflammatory fat stranding identified in the retroperitoneum in the along the distal right psoas muscle extending inferiorly along the right iliopsoas muscle into the right hip region measuring 50 Hounsfield units. Few enlarged right pelvic lymph nodes are identified measuring 1.5 cm. The right psoas muscle appears enlarged. Mild degenerative change is identified in the lumbar spine. There is moderate compression change of L1 vertebral body. IMPRESSION: 1. Moderate enlarged appearing right psoas muscle with mild to moderate fat stranding identified in the right retroperitoneum extending along the right iliopsoas muscle towards the right hip region ,suspicious for retroperitoneal bleed . Other differential consideration includes inflammation. Correlate clinically. 2. Mildly enlarged right pelvic lymph node measuring 1.4 cm, nonspecific. 3. Urinary bladder calculi, measuring 4 mm and 3 mm. The 3 millimeter calculus identified just distal to the left ureterovesical junction. No evidence of hydronephrosis. 4. A punctate 2 mm intrarenal collecting system calculus identified in the right kidney. 5. Moderate compression changes L1 vertebral body, age indeterminate. 6. Moderate enlarged prostate. Electronically signed by: Jonah Gray MD (04/02/2017 3:39 AM)
[2017-04-02 03:56] LABS: BASO # 0.1 x10^3/uL (0.0-0.2); BASO % 0 % (0-3); EOS % 13 % (0-3); HEMATOCRIT 40.8 % (39.0-53.0); HEMOGLOBIN 13.5 g/dL (13.0-17.5); LYMPH # 3.4 x10^3/uL (1.0-4.8); LYMPH % 28 % (24-48); MEAN CORPUSCULAR HEMOGLOBIN 29 pg (25-35); MEAN CORPUSCULAR HGB CONC 33 g/dL (31-37); MEAN CORPUSCULAR VOLUME 87 fL (79-100); MONO % 10 % (0-9); NEUT % 49 % (31-73); PLATELET COUNT 215 x10^3/uL (140-400); RED BLOOD COUNT 4.72 x10^6/uL (4.30-5.70); RED CELL DISTRIBUTION WIDTH 15.9 % (11.5-14.5); WHITE BLOOD COUNT 12.1 x10^3/uL (4.0-11.0)
[2017-04-02 04:02] LABS: CALCIUM 8.7 mg/dL (8.5-10.1); GFR 72.6; POTASSIUM 4.2 mmol/L (3.5-5.1)
[2017-04-02 04:07] LABS: ALBUMIN 2.5 g/dL (3.4-5.0); ALBUMIN/GLOBULIN RATIO 0.5 (1.0-1.7); TOTAL BILIRUBIN 0.5 mg/dL (0.2-1.0); TOTAL PROTEIN 7.3 g/dL (6.4-8.2)
[2017-04-02] MEDS ORDERED: ONDANSETRON PF 4 MG/2 ML VIAL. IV PRN (04:15)
[2017-04-02] MEDS ORDERED: ACETAMINOPHEN 325 MG TABLET. PO PRN (04:15)
[2017-04-02 04:41] LABS: BILIRUBIN,URINE NEGATIVE (NEG); GLUCOSE,URINE NEGATIVE (NEG); NITRITE,URINE NEGATIVE (NEG); PROTEIN,URINE NEGATIVE (NEG-TRACE); UROBILINOGEN,URINE 0.2 mg/dL (0.2 mg/dL)
[2017-04-02 04:45] LABS: INR 3.7 (0.8-1.1); PROTHROMBIN TIME PATIENT 34.4 SEC (11.7-14.0)
--- NOTE | 2017-04-02 04:51 | PHYS DOC ---
Past Medical History Past Medical History: A-Fib, Asthma, COPD, CVA, High Cholesterol, Heart Disease , Hypothyroid Past Surgical History: Pacemaker, Other Additional Past Surgical Histo: CARDIAC STENT; ablasion, LEFT HAND AND SHOULER , BILAT KNEE Alcohol Use: None Drug Use: None Adult General Chief Complaint Chief Complaint: HIP PAIN HPI HPI Patient is a 76 year old gentleman with history significant for atrial fibrillation, COPD, status post pacemaker, on Coumadin, presents here today complaining of right flank and right hip pain. Patient reports the pain started this evening. Patient denies any recent trauma or falls. Patient denies any dysuria frequency urgency. Patient denies any fevers shakes chills. Patient denies any nausea vomiting or diarrhea. Patient has any cough cold or runny nose. Patient denies any hematuria. Patient reports he is currently on Coumadin without any recent changes in his doses. Patient reports last time he had his INR checked with approximate 1 month ago and it was where the doctor wanted. Patient reports pain with flexion of his hips. Patient reports pain with palpation to his right lower abdomen. Patient has any dizziness, chest pain, weakness. Patient's physical exam is significant for tenderness to palpation to his right lower quadrant. Patient also has pain with flexion of his right hip. Patient does have a positive psoas sign. Patient has a positive obturator sign. Patient has no rebound or guarding but has significant tenderness to palpation to his right lower quadrant and right flank region. Patient has no flank ecchymosis. Patient's ER workup was significant for labs that were within normal limits. Patient's INR still pending. Patient had a CT scan which revealed retroperitoneal bleed. Assessment and plan Back pain with retroperitoneal bleed. We will admit the patient to the ICU to monitor his H&H. This is a spontaneous bleed as patient denies any trauma but he is on Coumadin. Patient has been typed and crossed. Patient be given FFP. We will consult surgery for further assistance with the management of this patient' s care. Review of Systems Review of Systems Constitutional: Denies fever or chills [] Eyes: Denies change in visual acuity, redness, or eye pain [] HENT: Denies nasal congestion or sore throat [] All other review systems are negative except as documented in the history of present illness portion. Current Medications Current Medications Current Medications Medications (Trade) Dose Ordered Sig/Negar Start Time Stop Time Status Last Admin Dose Admin Acetaminophen (Tylenol) 650 mg PRN Q4HRS PRN 04/02/17 04:15 04/03/17 04:14 UNV Fentanyl Citrate (Fentanyl 2ml Vial) 50 mcg PRN Q1HR PRN 04/02/17 04:15 04/03/17 04:14 UNV Hydromorphone HCl (Dilaudid) 0.5 mg 1X ONCE 04/02/17 03:15 04/02/17 03:40 DC 04/02/17 03:31 0.5 MG Ondansetron HCl (Zofran) 4 mg PRN Q8HRS PRN 04/02/17 04:15 04/03/17 04:14 UNV Sodium Chloride 1,000 ml @ 1,000 mls/hr 1X ONCE 04/02/17 03:15 04/02/17 04:14 DC 04/02/17 03:31 1,000 MLS/HR Allergies Allergies Allergies Coded Allergies Type Severity Reaction Last Updated Verified levofloxacin Allergy Severe RUPTURE OF ACHILLES TENDON 03/22/14 Yes amiodarone Allergy Intermediate 01/04/17 Yes fluticasone Allergy Intermediate MAKES SORES 03/22/14 Yes montelukast Allergy Intermediate EAR PAIN 01/04/17 Yes salmeterol Allergy Intermediate MAKES SORES 03/22/14 Yes Sulfa (Sulfonamide Antibiotics) Allergy Mild "MAKES SORES" 03/22/14 Yes budesonide Allergy Mild RASH 03/22/14 Yes Physical Exam Physical Exam Constitutional: Well developed, well nourished, no acute distress, non-toxic appearance. [] HENT: Normocephalic, atraumatic, bilateral external ears normal, oropharynx moist, no oral exudates, nose normal. [] Eyes: PERRLA, EOMI, conjunctiva normal, no discharge. [] Neck: Normal range of motion, no tenderness, supple, no stridor. [] Cardiovascular:Heart rate regular rhythm, no murmur [] Lungs & Thorax: Bilateral breath sounds clear to auscultation [] Abdomen: Bowel sounds normal, soft, tenderness to palpation to the right lower quadrant, no masses, no pulsatile masses. [] Skin: Warm, dry, no erythema, no rash. [] Back: Tenderness to palpation with a positive psoas sign. Extremities: No tenderness, no cyanosis, no clubbing, ROM intact, no edema. [] Neurologic: Alert and oriented X 3, normal motor function, normal sensory function, no focal deficits noted. [] Psychologic: Affect normal, judgement normal, mood normal. [] Current Patient Data Vital Signs Vital Signs Date Time Temp Pulse Resp B/P (MAP) Pulse Ox O2 Delivery O2 Flow Rate FiO2 04/02/17 02:55 98.0 75 18 152/80 (104) 95 Room Air 98.0 Lab Values Laboratory Tests Test 04/02/17 03:30 White Blood Count 12.1 x10^3/uL (4.0-11.0) H Red Blood Count 4.72 x10^6/uL (4.30-5.70) Hemoglobin 13.5 g/dL (13.0-17.5) Hematocrit 40.8 % (39.0-53.0) Mean Corpuscular Volume 87 fL (79-100) Mean Corpuscular Hemoglobin 29 pg (25-35) Mean Corpuscular Hemoglobin Concent 33 g/dL (31-37) Red Cell Distribution Width 15.9 % (11.5-14.5) H Platelet Count 215 x10^3/uL (140-400) Neutrophils (%) (Auto) 49 % (31-73) Lymphocytes (%) (Auto) 28 % (24-48) Monocytes (%) (Auto) 10 % (0-9) H Eosinophils (%) (Auto) 13 % (0-3) H Basophils (%) (Auto) 0 % (0-3) Neutrophils # (Auto) 5.9 x10^3uL (1.8-7.7) Lymphocytes # (Auto) 3.4 x10^3/uL (1.0-4.8) Monocytes # (Auto) 1.2 x10^3/uL (0.0-1.1) H Eosinophils # (Auto) 1.6 x10^3/uL (0.0-0.7) H Basophils # (Auto) 0.1 x10^3/uL (0.0-0.2) Platelet Estimate Pending Sodium Level 137 mmol/L (136-145) Potassium Level 4.2 mmol/L (3.5-5.1) Chloride Level 104 mmol/L (98-107) Carbon Dioxide Level 28 mmol/L (21-32) Anion Gap 5 (6-14) L Blood Urea Nitrogen 22 mg/dL (8-26) Creatinine 1.0 mg/dL (0.7-1.3) Estimated GFR (Cockcroft-Gault) 72.6 BUN/Creatinine Ratio 22 (6-20) H Glucose Level 100 mg/dL (70-99) H Calcium Level 8.7 mg/dL (8.5-10.1) Total Bilirubin 0.5 mg/dL (0.2-1.0) Aspartate Amino Transferase (AST) 35 U/L (15-37) Alanine Aminotransferase (ALT) 40 U/L (16-63) Alkaline Phosphatase 103 U/L (46-116) Total Protein 7.3 g/dL (6.4-8.2) Albumin 2.5 g/dL (3.4-5.0) L Albumin/Globulin Ratio 0.5 (1.0-1.7) L Laboratory Tests 04/02/17 03:30 Laboratory Tests 04/02/17 03:30 EKG EKG [] Radiology/Procedures Radiology/Procedures [] Course & Med Decision Making Course & Med Decision Making Pertinent Labs and Imaging studies reviewed. (See chart for details) [] Dragon Disclaimer Dragon Disclaimer This electronic medical record was generated, in whole or in part, using a voice recognition dictation system. Departure Departure Impression: Primary Impression: Retroperitoneal bleed Additional Impression: Anticoagulated Disposition: 09 ADMITTED INPATIENT Admitting Physician: Latrice Pérez Condition: IMPROVED Referrals: QUYNH BERGER (PCP) Problem Qualifiers ESTHER YOUNG MD Apr 02, 2017 04:51
[2017-04-02 05:19] LABS: BACTERIA,URINE FEW /HPF (0-FEW); RBC,URINE OCC /HPF (0-2); WBC,URINE 0 /HPF (0-4)
--- NOTE | 2017-04-02 05:32 | ACF ---
Admission Forms Criteria ABDOMINAL PAIN Clinical Indications for Admission to Inpatient Care (Place 'X' for any and all applicable criteria): Admission is indicated for ANY ONE of the following(1)(2)(3)(4)(5): [X]I. Inpatient admission required rather than observation care (Also use Abdominal Pain: Observation Care, as appropriate) because of ANY ONE of the following: [ ]a) Severe pain requiring acute inpatient management [X]b) Identification of etiology/finding that requires inpatient care (eg, aortic dissection, free air) [ ]c) Absent bowel sounds with complete ileus(6) [ ]d) Suspected toxic megacolon [ ]e) Severe electrolyte abnormalities requiring inpatient care [ ]f) High fever or infection requiring inpatient admission as indicated by ANY ONE of following(7)(8): [ ] i) Appropriate outpatient or observational care antimicrobial treatment unavailable, not effective, or not feasible [ ] ii) Documented bacteremia [ ] iii) Temperature > 104.9 degrees F (oral) [ ] iv) T >103.1 F (oral) or < 96.8 F(rectal) that does not respond to all emergency treatment measures [ ]g) Signs of intestinal obstruction [B] [ ]h) Hemodynamic instability [ ]i) IV fluid to replace significant ongoing losses (greater than 3 L/m2 per day) (12)(13) [ ]j) Percutaneous or open drainage (eg, abscess, biliary tract ) procedures [ ]k) Parenteral nutrition regimen that must be implemented on inpatient basis [ ]l) Other condition,treatment or monitoring requiring inpatient admission. [ ]II. Peritoneal signs present [ ]III. Surgery needed that cannot be performed on an ambulatory basis. [ ]IV. Evaluation requires patient to not eat or drink for extended period ( eg, more than 24 hours). [ ]V. Contraindications and/or Inappropriate clinical situations for Observational Care in patients with abdominal pain, when ANY ONE of the following is required: [ ]a) Thorough evaluation is required to prevent catastrophic events due to delays in diagnosing (e.g.Mesenteric ischemia) 1,3 [ ]b) Patient with severe pathology or with chronic symptoms unlikely to improve in the ED stay (3) [ ]. General contraindications and/or Inappropriate clinical situations for Observational Care in patients with abdominal pain, when ANY ONE of the following is required: [ ]a) Prediction of prolongation of LOS based on ANY ONE of the following may be considered as a contraindication for observational care 2, 3, 4, 5, 6, 7, 8, 9, 10, 11 [ ]i) Age > 65 yrs. [ ]ii) Patient arriving by ambulance [ ]iii) Patient with high acuity [ ]iv) Patient requiring vital sign monitoring [ ]v) Patient on IV medication [ ]b) Systolic blood pressures 180mmHg 3,12 [ ]c) Patient with altered mental status including delirium and other alteration of consciousness, (3) [ ]d) Patient whose discharge disposition will be to a penitentiary home or rehabilitation home should not be managed in Emergency Department Observation Unit. CMS rule requires 3 days hospital stay before such placement.3,13 [ ]e) Patient with failure to thrive due to broad array of etiologies 3,16,17 [ ]f) Inability to ambulate 3,14 Extended stay beyond goal length of stay may be needed for(2)(3): [ ]a) Persistent abdominal pain with suspected intra-abdominal process [ ]b) Diagnosed condition requiring continued stay (e.g., pancreatitis, complicated diverticulitis) [ ]c) Surgery (e.g., colectomy) The original [facility] content created by [employer] has been revised. The portions of the content which have been revised are identified through the use of italic text or in bold, and [facility] has neither reviewed nor approved the modified material.All other unmodified content is copyright [employer]. Please see references footnoted in the original [facility] edition 2016 Admission Criteria Met?: Yes SEEMA DIAZ Apr 02, 2017 05:32
[2017-04-02 06:40] LABS: % EOS 11 % (0-5)
[2017-04-02 06:41] LABS: PLT ESTIMATE ADEQUATE (ADEQUATE)
--- NOTE | 2017-04-02 09:46 | EKG ---
[facility] [address] [place] [address] Test Date: 2017-04-02 Test Time: 05:32:04 Pat Name: NAMRATA MAHAJAN Department: Room: 108 1 Gender: M Soft Boarder: : 1940 Requested By: ESTHER YOUNG Order Number: [id number] Reading MD: Jose Dennis Measurements Intervals Warrior Rate: 79 P: MN: QRS: -54 QRSD: 168 T: 90 QT: 436 QTc: 507 Interpretive Statements V-PACING Electronically Signed On 04-03-2017 11:04:37 CDT by Jose Dennis
--- NOTE | 2017-04-02 11:35 | PDOC1 ---
History and Physical Date of Admission Date of Admission DATE: 04/02/17 TIME: 11:29 Identification/Chief Complaint Chief Complaint hip pain Problems: Source Source: Caregiver, Chart review, Patient History of Present Illness History of Present Illness Mr. Clancy is a 76 year old, admit with acute right flank and right hip pain. 12 hours of pain, mild at rest and when supine, severe > 10/10 when touched or pressure to abdomen. he can barely ambulate, limited due to pain no falls, no travel, no trauma oncoumadin for a long time, for afib, no change in diet or meds, had been stable on monthly monitor CT here showed blood in psoas, retroperitoneum Past Medical History Past Medical History atrial fibrillation, COPD, status post pacemaker, on Coumadin Cardiovascular: AFIB, HTN Pulmonary: COPD Musculoskeletal: low back pain Renal/: Benign prostatic enlarg. Endocrine: Hypothyroidism Past Surgical History Past Surgical History: No pertinent history Family History Family History: Diabetes Social History Smoke: No ALCOHOL: rare Current Problem List Problem List Problems Medical Problems: (1) Anticoagulated Status: Acute (2) Retroperitoneal bleed Status: Acute Problems: Current Medications Current Medications Current Medications Hydromorphone HCl (Dilaudid) 0.5 mg 1X ONCE IV Last administered on 04/02/17 03:31; Start 04/02/17 at 03:15; Stop 04/02/17 at 03:40; Status DC Ondansetron HCl (Zofran) 4 mg 1X ONCE IV Last administered on 04/02/17 03:31 ; Start 04/02/17 at 03:15; Stop 04/02/17 at 03:40; Status DC Sodium Chloride 1,000 ml @ 1,000 mls/hr 1X ONCE IV Last administered on 03:31; Start 04/02/17 at 03:15; Stop 04/02/17 at 04:14; Status DC Ondansetron HCl (Zofran) 4 mg PRN Q8HRS PRN IV NAUSEA/VOMITING; Start 04/02/17 at 04:15; Stop 04/03/17 at 04:14 Fentanyl Citrate (Fentanyl 2ml Vial) 50 mcg PRN Q1HR PRN IV PAIN; Start at 04:15; Stop 04/03/17 at 04:14 Acetaminophen (Tylenol) 650 mg PRN Q4HRS PRN PO FEVER; Start 04/02/17 at 04:15 ; Stop 04/03/17 at 04:14 Active Scripts Active Reported Augmentin 875-125 Tablet (Amoxicillin/Potassium Clav) 1 Each Tablet 1 Tab PO BID Proair Hfa (Albuterol Sulfate) 8.5 Gm Hfa.aer.ad 9 Gm IH Proscar (Finasteride) 5 Mg Tablet 1 Tab PO DAILY NITROGLYCERIN SubLingual (Nitroglycerin) 0.4 Mg Tab.subl 1 Tab SL UD Coumadin (Warfarin Sodium) 3 Mg Tablet 1 Tab PO DAILY Proair Hfa Inhaler (Albuterol Sulfate) 8.5 Gm Hfa.aer.ad 1-2 Inh IH Q4-6 HRS PRN Lipitor (Atorvastatin Calcium) 80 Mg Tablet 80 Mg PO DAILY Allergies Allergies: Coded Allergies: levofloxacin (Verified Allergy, Severe, RUPTURE OF ACHILLES TENDON, 03/22/14 ) amiodarone (Verified Allergy, Intermediate, 01/04/17) fluticasone (Verified Allergy, Intermediate, MAKES SORES, 03/22/14) montelukast (Verified Allergy, Intermediate, EAR PAIN, 01/04/17) salmeterol (Verified Allergy, Intermediate, MAKES SORES, 03/22/14) Sulfa (Sulfonamide Antibiotics) (Verified Allergy, Mild, "MAKES SORES", 03/22/14) budesonide (Verified Allergy, Mild, RASH, 03/22/14) ROS General: No: Chills, Night Sweats, Fatigue, Malaise, Appetite, Other PSYCHOLOGICAL ROS: YES: Sleep disturbances, No: Anxiety, Behavioral Disorder, Concentration difficultie, Decreased libido , Depression, Disorientation, Hallucinations, Hostility, Irritablity, Memory difficulties, Mood Swings, Obsessive thoughts, Other Eyes: No Blurry vision, No Decreased vision, No Double vision, No Dry eyes, No Excessive tearing, No Eye Pain, No Itchy Eyes, No Loss of vision, No Photophobia , No Scotomata, No Uses contacts, No Uses glasses, No Other HEENT: No: Heacaches, Visual Changes, Hearing change, Nasal congestion, Nasal discharge, Oral lesions, Sinus pain, Sore Throat, Epistaxis, Sneezing, Snoring, Tinnitus, Vertigo, Vocal changes, Other Respiratory: No: Cough, Hemoptysis, Orthopnea, Pleuritic Pain, Shortness of breath, SOB with excertion, Sputum Changes, Stridor, Tachypnea, Wheezing, Other Cardiovascular: No Chest Pain, No Palpitations, No Orthopnea, No Paroxysmal Noc. Dyspnea, No Edema, No Lt Headedness, No Other Gastrointestinal: Yes Nausea, No Vomiting, No Abdominal Pain, No Diarrhea, No Constipation, No Melena, No Hematochezia, No Other Genitourinary: No Dysuria, No Frequency, No Incontinence, No Hematuria, No Retention, No Discharge, No Urgency, No Pain, No Flank Pain, No Other, No , No , No , No , No , No , No Musculoskeletal: Yes Gait Disturbance, Yes Joint Pain, Yes Joint Stiffness, Yes Pain In: (right hip), Yes Other Neurological: Yes Gait Disturbance, No Behavorial Changes, No Bowel/Bladder ControlChng, No Confusion, No Dizziness, No Headaches, No Impaired Coord/balance, No Memory Loss, No Numbness/ Tingling, No Seizures, No Speech Problems, No Tremors, No Visual Changes, No Weakness, No Other Skin: No Dry Skin, No Eczema, No Hair Changes, No Lumps, No Mole Changes, No Mottling, No Nail Changes, No Pruritus, No Rash, No Skin Lesion Changes, No Other, No Acne Physical Exam General: Alert, Oriented X3, Cooperative, mild distress HEENT: EOMI Lungs: Normal air movement Heart: no gallops, no murmurs Abdomen: Normal bowel sounds, Soft (very tender, guarded) Extremities: No cyanosis, No edema Skin: No significant lesion Neuro: Normal speech, Sensation intact, Cranial nerves 3-12 NL Psych/Mental Status: Mood NL Vitals Vitals Vital Signs Date Time Temp Pulse Resp B/P (MAP) Pulse Ox O2 Delivery O2 Flow Rate FiO2 04/02/17 11:00 76 19 120/65 (83) 94 Room Air 04/02/17 07:15 98.2 98.2 Labs Labs Laboratory Tests Test 04/02/17 03:30 04/02/17 04:10 White Blood Count 12.1 x10^3/uL (4.0-11.0) Red Blood Count 4.72 x10^6/uL (4.30-5.70) Hemoglobin 13.5 g/dL (13.0-17.5) Hematocrit 40.8 % (39.0-53.0) Mean Corpuscular Volume 87 fL (79-100) Mean Corpuscular Hemoglobin 29 pg (25-35) Mean Corpuscular Hemoglobin Concent 33 g/dL (31-37) Red Cell Distribution Width 15.9 % (11.5-14.5) Platelet Count 215 x10^3/uL (140-400) Neutrophils (%) (Auto) 49 % (31-73) Lymphocytes (%) (Auto) 28 % (24-48) Monocytes (%) (Auto) 10 % (0-9) Eosinophils (%) (Auto) 13 % (0-3) Basophils (%) (Auto) 0 % (0-3) Neutrophils # (Auto) 5.9 x10^3uL (1.8-7.7) Lymphocytes # (Auto) 3.4 x10^3/uL (1.0-4.8) Monocytes # (Auto) 1.2 x10^3/uL (0.0-1.1) Eosinophils # (Auto) 1.6 x10^3/uL (0.0-0.7) Basophils # (Auto) 0.1 x10^3/uL (0.0-0.2) Segmented Neutrophils % 69 % (35-66) Lymphocytes % 15 % (24-48) Atypical Lymphocytes % (Manual) 2 % (0-0) Monocytes % 3 % (0-10) Eosinophils % 11 % (0-5) Platelet Estimate Adequate (ADEQUATE) Prothrombin Time 34.4 SEC (11.7-14.0) Prothromb Time International Ratio 3.7 (0.8-1.1) Sodium Level 137 mmol/L (136-145) Potassium Level 4.2 mmol/L (3.5-5.1) Chloride Level 104 mmol/L (98-107) Carbon Dioxide Level 28 mmol/L (21-32) Anion Gap 5 (6-14) Blood Urea Nitrogen 22 mg/dL (8-26) Creatinine 1.0 mg/dL (0.7-1.3) Estimated GFR (Cockcroft-Gault) 72.6 BUN/Creatinine Ratio 22 (6-20) Glucose Level 100 mg/dL (70-99) Calcium Level 8.7 mg/dL (8.5-10.1) Total Bilirubin 0.5 mg/dL (0.2-1.0) Aspartate Amino Transf (AST/SGOT) 35 U/L (15-37) Alanine Aminotransferase (ALT/SGPT) 40 U/L (16-63) Alkaline Phosphatase 103 U/L (46-116) Total Protein 7.3 g/dL (6.4-8.2) Albumin 2.5 g/dL (3.4-5.0) Albumin/Globulin Ratio 0.5 (1.0-1.7) Urine Collection Type Unknown Urine Color Yellow Urine Clarity Clear Urine pH 6.0 Urine Specific [place] 1.015 Urine Protein Negative mg/dL (NEG-TRACE) Urine Glucose (UA) Negative mg/dL (NEG) Urine Ketones (Stick) Negative mg/dL (NEG) Urine Blood Negative (NEG) Urine Nitrite Negative (NEG) Urine Bilirubin Negative (NEG) Urine Urobilinogen Dipstick 0.2 mg/dL (0.2 mg/dL) Urine Leukocyte Esterase Negative (NEG) Urine RBC Occ /HPF (0-2) Urine WBC 0 /HPF (0-4) Urine Bacteria Few /HPF (0-FEW) Urine Mucus Mod /LPF Laboratory Tests Test 04/02/17 03:30 04/02/17 04:10 White Blood Count 12.1 x10^3/uL (4.0-11.0) Red Blood Count 4.72 x10^6/uL (4.30-5.70) Hemoglobin 13.5 g/dL (13.0-17.5) Hematocrit 40.8 % (39.0-53.0) Mean Corpuscular Volume 87 fL (79-100) Mean Corpuscular Hemoglobin 29 pg (25-35) Mean Corpuscular Hemoglobin Concent 33 g/dL (31-37) Red Cell Distribution Width 15.9 % (11.5-14.5) Platelet Count 215 x10^3/uL (140-400) Neutrophils (%) (Auto) 49 % (31-73) Lymphocytes (%) (Auto) 28 % (24-48) Monocytes (%) (Auto) 10 % (0-9) Eosinophils (%) (Auto) 13 % (0-3) Basophils (%) (Auto) 0 % (0-3) Neutrophils # (Auto) 5.9 x10^3uL (1.8-7.7) Lymphocytes # (Auto) 3.4 x10^3/uL (1.0-4.8) Monocytes # (Auto) 1.2 x10^3/uL (0.0-1.1) Eosinophils # (Auto) 1.6 x10^3/uL (0.0-0.7) Basophils # (Auto) 0.1 x10^3/uL (0.0-0.2) Segmented Neutrophils % 69 % (35-66) Lymphocytes % 15 % (24-48) Atypical Lymphocytes % (Manual) 2 % (0-0) Monocytes % 3 % (0-10) Eosinophils % 11 % (0-5) Platelet Estimate Adequate (ADEQUATE) Prothrombin Time 34.4 SEC (11.7-14.0) Prothromb Time International Ratio 3.7 (0.8-1.1) Sodium Level 137 mmol/L (136-145) Potassium Level 4.2 mmol/L (3.5-5.1) Chloride Level 104 mmol/L (98-107) Carbon Dioxide Level 28 mmol/L (21-32) Anion Gap 5 (6-14) Blood Urea Nitrogen 22 mg/dL (8-26) Creatinine 1.0 mg/dL (0.7-1.3) Estimated GFR (Cockcroft-Gault) 72.6 BUN/Creatinine Ratio 22 (6-20) Glucose Level 100 mg/dL (70-99) Calcium Level 8.7 mg/dL (8.5-10.1) Total Bilirubin 0.5 mg/dL (0.2-1.0) Aspartate Amino Transf (AST/SGOT) 35 U/L (15-37) Alanine Aminotransferase (ALT/SGPT) 40 U/L (16-63) Alkaline Phosphatase 103 U/L (46-116) Total Protein 7.3 g/dL (6.4-8.2) Albumin 2.5 g/dL (3.4-5.0) Albumin/Globulin Ratio 0.5 (1.0-1.7) Urine Collection Type Unknown Urine Color Yellow Urine Clarity Clear Urine pH 6.0 Urine Specific [place] 1.015 Urine Protein Negative mg/dL (NEG-TRACE) Urine Glucose (UA) Negative mg/dL (NEG) Urine Ketones (Stick) Negative mg/dL (NEG) Urine Blood Negative (NEG) Urine Nitrite Negative (NEG) Urine Bilirubin Negative (NEG) Urine Urobilinogen Dipstick 0.2 mg/dL (0.2 mg/dL) Urine Leukocyte Esterase Negative (NEG) Urine RBC Occ /HPF (0-2) Urine WBC 0 /HPF (0-4) Urine Bacteria Few /HPF (0-FEW) Urine Mucus Mod /LPF VTE Prophylaxis Ordered VTE Prophylaxis Devices: Yes VTE Pharmacological Prophylaxi: Contraindicated Assessment/Plan Assessment/Plan retroperitoneal bleed acute blood loss anemia blood within Psoas muscle, pain bedrest as best for now s/p FFP, may repeat, consult Heme images reviewed with IR, bleed should be self limited admitted to ICU, follow CBC may transfer to the floor soon, but may need to hospitalized a few days, marked pain and cannot ambulate BECKI PALM MD Apr 02, 2017 11:35
[2017-04-02] MEDS ORDERED: PHYTONADIONE 10 MG/ML AMPUL. SQ ONE (12:00)
[2017-04-02] MEDS: fentaNYL PF VIAL 100 MCG/2 ML VIAL IV PRN ×2 (12:51→15:18)
--- NOTE | 2017-04-02 13:02 | PDOC ---
SURGICAL PROGRESS NOTE Subjective Consult received D/W Dr. Ratliff and nursing consult currently cancelled, but will remain available if needed Thanks Vital Signs Vital Signs Date Time Temp Pulse Resp B/P (MAP) Pulse Ox O2 Delivery O2 Flow Rate FiO2 04/02/17 12:59 98.2 80 14 122/69 98.2 04/02/17 12:51 95 Room Air I&O Intake and Output 04/02/17 07:00 Intake Total 1000 ml Balance 1000 ml IV Total 1000 ml Labs Laboratory Tests Test 04/02/17 03:30 04/02/17 04:10 White Blood Count 12.1 x10^3/uL (4.0-11.0) Red Blood Count 4.72 x10^6/uL (4.30-5.70) Hemoglobin 13.5 g/dL (13.0-17.5) Hematocrit 40.8 % (39.0-53.0) Mean Corpuscular Volume 87 fL (79-100) Mean Corpuscular Hemoglobin 29 pg (25-35) Mean Corpuscular Hemoglobin Concent 33 g/dL (31-37) Red Cell Distribution Width 15.9 % (11.5-14.5) Platelet Count 215 x10^3/uL (140-400) Neutrophils (%) (Auto) 49 % (31-73) Lymphocytes (%) (Auto) 28 % (24-48) Monocytes (%) (Auto) 10 % (0-9) Eosinophils (%) (Auto) 13 % (0-3) Basophils (%) (Auto) 0 % (0-3) Neutrophils # (Auto) 5.9 x10^3uL (1.8-7.7) Lymphocytes # (Auto) 3.4 x10^3/uL (1.0-4.8) Monocytes # (Auto) 1.2 x10^3/uL (0.0-1.1) Eosinophils # (Auto) 1.6 x10^3/uL (0.0-0.7) Basophils # (Auto) 0.1 x10^3/uL (0.0-0.2) Segmented Neutrophils % 69 % (35-66) Lymphocytes % 15 % (24-48) Atypical Lymphocytes % (Manual) 2 % (0-0) Monocytes % 3 % (0-10) Eosinophils % 11 % (0-5) Platelet Estimate Adequate (ADEQUATE) Prothrombin Time 34.4 SEC (11.7-14.0) Prothromb Time International Ratio 3.7 (0.8-1.1) Sodium Level 137 mmol/L (136-145) Potassium Level 4.2 mmol/L (3.5-5.1) Chloride Level 104 mmol/L (98-107) Carbon Dioxide Level 28 mmol/L (21-32) Anion Gap 5 (6-14) Blood Urea Nitrogen 22 mg/dL (8-26) Creatinine 1.0 mg/dL (0.7-1.3) Estimated GFR (Cockcroft-Gault) 72.6 BUN/Creatinine Ratio 22 (6-20) Glucose Level 100 mg/dL (70-99) Calcium Level 8.7 mg/dL (8.5-10.1) Total Bilirubin 0.5 mg/dL (0.2-1.0) Aspartate Amino Transf (AST/SGOT) 35 U/L (15-37) Alanine Aminotransferase (ALT/SGPT) 40 U/L (16-63) Alkaline Phosphatase 103 U/L (46-116) Total Protein 7.3 g/dL (6.4-8.2) Albumin 2.5 g/dL (3.4-5.0) Albumin/Globulin Ratio 0.5 (1.0-1.7) Urine Collection Type Unknown Urine Color Yellow Urine Clarity Clear Urine pH 6.0 Urine Specific [place] 1.015 Urine Protein Negative mg/dL (NEG-TRACE) Urine Glucose (UA) Negative mg/dL (NEG) Urine Ketones (Stick) Negative mg/dL (NEG) Urine Blood Negative (NEG) Urine Nitrite Negative (NEG) Urine Bilirubin Negative (NEG) Urine Urobilinogen Dipstick 0.2 mg/dL (0.2 mg/dL) Urine Leukocyte Esterase Negative (NEG) Urine RBC Occ /HPF (0-2) Urine WBC 0 /HPF (0-4) Urine Bacteria Few /HPF (0-FEW) Urine Mucus Mod /LPF Laboratory Tests Test 04/02/17 03:30 04/02/17 04:10 White Blood Count 12.1 x10^3/uL (4.0-11.0) Red Blood Count 4.72 x10^6/uL (4.30-5.70) Hemoglobin 13.5 g/dL (13.0-17.5) Hematocrit 40.8 % (39.0-53.0) Mean Corpuscular Volume 87 fL (79-100) Mean Corpuscular Hemoglobin 29 pg (25-35) Mean Corpuscular Hemoglobin Concent 33 g/dL (31-37) Red Cell Distribution Width 15.9 % (11.5-14.5) Platelet Count 215 x10^3/uL (140-400) Neutrophils (%) (Auto) 49 % (31-73) Lymphocytes (%) (Auto) 28 % (24-48) Monocytes (%) (Auto) 10 % (0-9) Eosinophils (%) (Auto) 13 % (0-3) Basophils (%) (Auto) 0 % (0-3) Neutrophils # (Auto) 5.9 x10^3uL (1.8-7.7) Lymphocytes # (Auto) 3.4 x10^3/uL (1.0-4.8) Monocytes # (Auto) 1.2 x10^3/uL (0.0-1.1) Eosinophils # (Auto) 1.6 x10^3/uL (0.0-0.7) Basophils # (Auto) 0.1 x10^3/uL (0.0-0.2) Segmented Neutrophils % 69 % (35-66) Lymphocytes % 15 % (24-48) Atypical Lymphocytes % (Manual) 2 % (0-0) Monocytes % 3 % (0-10) Eosinophils % 11 % (0-5) Platelet Estimate Adequate (ADEQUATE) Prothrombin Time 34.4 SEC (11.7-14.0) Prothromb Time International Ratio 3.7 (0.8-1.1) Sodium Level 137 mmol/L (136-145) Potassium Level 4.2 mmol/L (3.5-5.1) Chloride Level 104 mmol/L (98-107) Carbon Dioxide Level 28 mmol/L (21-32) Anion Gap 5 (6-14) Blood Urea Nitrogen 22 mg/dL (8-26) Creatinine 1.0 mg/dL (0.7-1.3) Estimated GFR (Cockcroft-Gault) 72.6 BUN/Creatinine Ratio 22 (6-20) Glucose Level 100 mg/dL (70-99) Calcium Level 8.7 mg/dL (8.5-10.1) Total Bilirubin 0.5 mg/dL (0.2-1.0) Aspartate Amino Transf (AST/SGOT) 35 U/L (15-37) Alanine Aminotransferase (ALT/SGPT) 40 U/L (16-63) Alkaline Phosphatase 103 U/L (46-116) Total Protein 7.3 g/dL (6.4-8.2) Albumin 2.5 g/dL (3.4-5.0) Albumin/Globulin Ratio 0.5 (1.0-1.7) Urine Collection Type Unknown Urine Color Yellow Urine Clarity Clear Urine pH 6.0 Urine Specific [place] 1.015 Urine Protein Negative mg/dL (NEG-TRACE) Urine Glucose (UA) Negative mg/dL (NEG) Urine Ketones (Stick) Negative mg/dL (NEG) Urine Blood Negative (NEG) Urine Nitrite Negative (NEG) Urine Bilirubin Negative (NEG) Urine Urobilinogen Dipstick 0.2 mg/dL (0.2 mg/dL) Urine Leukocyte Esterase Negative (NEG) Urine RBC Occ /HPF (0-2) Urine WBC 0 /HPF (0-4) Urine Bacteria Few /HPF (0-FEW) Urine Mucus Mod /LPF Problem List Problems Medical Problems: (1) Anticoagulated Status: Acute (2) Retroperitoneal bleed Status: Acute Problems: AMANDA STONE MD Apr 02, 2017 13:02
[2017-04-02] MEDS: HYDROmorphone 2 MG/ML VIAL IVP PRN ×2 (16:29→21:16)
--- NOTE | 2017-04-02 16:43 | PDOC ---
Provider Note Provider Note Onc consult dictated- [id number] Retroperitoneal hematoma- Suspect some trauma given bruising on left hip and only Mildly supratherapeutic INR- Coumadin on hold, S/p 2 unit FFP, 2 mg Vit K Chronic A fib Plan: - Agree w. above mgt - F/u hgb, INR in AM - Pain mgt - outpt eval for ongoing GI sx, weight loss; has been seen by GI and had colonoscopies D/W Dr. Ratliff. BONNIE LOZA DO Apr 02, 2017 16:43
[2017-04-03] VITALS (34 sets, daily range): BP systolic 50–148; BP diastolic 23–76
[2017-04-03] MEDS: HYDROmorphone 2 MG/ML VIAL IVP PRN ×3 (00:47→09:54)
--- NOTE | 2017-04-03 02:20 | CONS ---
DATE OF CONSULTATION: 04/02/2017 REFERRING PROVIDER: Dr. Ratliff. REASON FOR CONSULTATION: Retroperitoneal bleed. HISTORY OF PRESENT ILLNESS: The patient is a 76-year-old male who has had a long-term history of atrial fibrillation; on chronic Coumadin. About 1 month ago, his INR was therapeutic at 2.6. He presented with acute flank pain with acute right lower quadrant abdominal pain and hip pain. He does not recall any history of recent falls. However, he does have a very large bruise on his left posterior leg, which he cannot recall how it occurred. Here his INR is 3.7. CT imaging showed possible right retroperitoneal bleed versus inflammation. He has diverticulosis and ongoing abdominal bloating, early satiety and significant weight loss of nearly 40 pounds in the last 6 months. He has followed with GI previously and reports having multiple colonoscopies, last about one year ago. He has received 2 units of FFP and 2 mg of vitamin K. He was recently on Augmentin for an upper respiratory infection. PAST MEDICAL HISTORY: Atrial fibrillation, COPD, BPH, diverticulosis, vertigo, and obstructive sleep apnea on CPAP. PAST SURGICAL HISTORY: Pacemaker, PCI. FAMILY HISTORY: Three brothers have had cancer, one of which was pancreatic. The other two cancer types were unknown. SOCIAL HISTORY: Denies any tobacco, alcohol or drug use. . ALLERGIES: SULFA, AMIODARONE, BUDESONIDE, FLUTICASONE, LEVAQUIN, MONTELUKAST, SALMETEROL. CURRENT MEDICATIONS: Dilaudid, Tylenol, fentanyl, Zofran. He has already received vitamin K. REVIEW OF SYSTEMS: Ten-point review of systems completed and unremarkable with the exception of that mentioned in HPI. PHYSICAL EXAMINATION: VITAL SIGNS: Temperature 98.2, pulse 84, respiratory rate 28, blood pressure 125/73, 95% O2 on room air. GENERAL: He is alert and oriented. He is in moderate distress due to this abdominal pain and overwhelming nausea. HEENT: No scleral icterus. Mucous membranes are moist. CARDIOVASCULAR: Heart is irregularly irregular, but rate is controlled. LUNGS: Clear to auscultation bilaterally. ABDOMEN: Soft, distended, diffusely tender. EXTREMITIES: No significant edema. SKIN: Chronic bruising from Coumadin present, large bruise on left leg. NEUROLOGIC: No focal deficits. IMAGING AND LABORATORY DATA: Hemoglobin normal at 13.5, platelets 215, WBC 12.1. CMP unremarkable with the exception of albumin 2.5. INR 3.7. CT abdomen/pelvis reviewed as above. ASSESSMENT AND PLAN: The patient is a 76-year-old male with the following medical problems: 1. Acute right flank/abdominal pain, likely related to the right retroperitoneal bleed, although his Coumadin was only mildly supertherapeutic. I suspect he did recently have a fall giving the bruising on his other hip, even though he cannot recall a particular incident. Coumadin is on hold. He has received 2 units of FFP and 2 mg of vitamin K. INR will be repeated in the morning and I suspect it will be close to normal. 2. Atrial fibrillation. Coumadin on hold. 3. Chronic abdominal pain, bloating, a 40-pound weight loss in the last 6 months. Likely defer for further outpatient evaluation. He reports previously having multiple colonoscopies and being seen by GI previously. Thank you for allowing me to participate in his care. I discussed these recommendations with Dr. Ratliff. BONNIE LOZA DO DR: PIERRE/oz JOB#: [id number] / [id number] GINA
[2017-04-03 04:23] LABS: BASO % 0 % (0-3); EOS % 1 % (0-3); HEMATOCRIT 31.9 % (39.0-53.0); HEMOGLOBIN 10.4 g/dL (13.0-17.5); LYMPH # 7.3 x10^3/uL (1.0-4.8); LYMPH % 38 % (24-48); MEAN CORPUSCULAR HEMOGLOBIN 29 pg (25-35); MEAN CORPUSCULAR HGB CONC 33 g/dL (31-37); MEAN CORPUSCULAR VOLUME 87 fL (79-100); MONO % 9 % (0-9); NEUT % 52 % (31-73); PLATELET COUNT 265 x10^3/uL (140-400); RED BLOOD COUNT 3.64 x10^6/uL (4.30-5.70); WHITE BLOOD COUNT 19.4 x10^3/uL (4.0-11.0)
[2017-04-03 04:31] LABS: INR 2.2 (0.8-1.1); PROTHROMBIN TIME PATIENT 23.4 SEC (11.7-14.0)
[2017-04-03] MEDS ORDERED: ONDANSETRON PF 4 MG/2 ML VIAL. IV PRN (08:30)
[2017-04-03] MEDS ORDERED: NITROGLYCERIN SUBLINGUAL 0.4 MG BOTTLE OF 25. SL PRN (08:30)
[2017-04-03] MEDS ORDERED: ALBUTEROL SULFATE 8GM INHALER. IH PRN (08:30)
[2017-04-03] MEDS: PANTOPRAZOLE 40 MG TABLET.DR. PO SCH (09:00)
[2017-04-03] MEDS ORDERED: IV NORMAL SALINE 1000ML BAG 1,000 ML IV ONE ×3 (09:00→23:30)
--- NOTE | 2017-04-03 09:59 | PDOC ---
PROGRESS NOTES Chief Complaint Chief Complaint 1. Retroperitoneal bleed/psoas bleed 2. Acute anemia of blood loss from above 3. COumadin coagulopathy 4. Afib, pacemaker on coumadin 5, Leukocytosis, reactive likely 6. Mod PCM 7. CHronic lumbago, hypothyroidsim, HTN- all stable 8. HYPOTENSION, hemorrhagic? 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 31 Vitals Vitals Vital Signs Date Time Temp Pulse Resp B/P (MAP) Pulse Ox O2 Delivery O2 Flow Rate FiO2 04/03/17 07:00 92 14 81/48 (59) 90 Room Air 04/03/17 04:00 97.9 97.9 Physical Exam General: Alert, Oriented X3, Cooperative, mild distress Heart: Regular rate Lungs: Clear, Other Abdomen: Normal bowel sounds, Soft (very tender, guarded) Extremities: No cyanosis, No edema Skin: No significant lesion Labs LABS Laboratory Tests Test 04/03/17 04:00 White Blood Count 19.4 x10^3/uL (4.0-11.0) Red Blood Count 3.64 x10^6/uL (4.30-5.70) Hemoglobin 10.4 g/dL (13.0-17.5) Hematocrit 31.9 % (39.0-53.0) Mean Corpuscular Volume 87 fL (79-100) Mean Corpuscular Hemoglobin 29 pg (25-35) Mean Corpuscular Hemoglobin Concent 33 g/dL (31-37) Red Cell Distribution Width 16.0 % (11.5-14.5) Platelet Count 265 x10^3/uL (140-400) Neutrophils (%) (Auto) 52 % (31-73) Lymphocytes (%) (Auto) 38 % (24-48) Monocytes (%) (Auto) 9 % (0-9) Eosinophils (%) (Auto) 1 % (0-3) Basophils (%) (Auto) 0 % (0-3) Neutrophils # (Auto) 10.1 x10^3uL (1.8-7.7) Lymphocytes # (Auto) 7.3 x10^3/uL (1.0-4.8) Monocytes # (Auto) 1.8 x10^3/uL (0.0-1.1) Eosinophils # (Auto) 0.1 x10^3/uL (0.0-0.7) Basophils # (Auto) 0.0 x10^3/uL (0.0-0.2) Prothrombin Time 23.4 SEC (11.7-14.0) Prothromb Time International Ratio 2.2 (0.8-1.1) Review of Systems Review of Systems abd pain, poor PO, no emesis, CP, SOA Assessment and Plan Assessmemt and Plan Problems Medical Problems: (1) Anticoagulated Status: Acute (2) Retroperitoneal bleed Status: Acute Problems: Comment Review of Relevant I have reviewed the following items sarbjit (where applicable) has been applied. Labs Laboratory Tests Test 04/02/17 03:30 04/02/17 04:10 04/02/17 08:25 04/03/17 04:00 White Blood Count 12.1 x10^3/uL (4.0-11.0) 19.4 x10^3/uL (4.0-11.0) Red Blood Count 4.72 x10^6/uL (4.30-5.70) 3.64 x10^6/uL (4.30-5.70) Hemoglobin 13.5 g/dL (13.0-17.5) 10.4 g/dL (13.0-17.5) Hematocrit 40.8 % (39.0-53.0) 31.9 % (39.0-53.0) Mean Corpuscular Volume 87 fL (79-100) 87 fL (79-100) Mean Corpuscular Hemoglobin 29 pg (25-35) 29 pg (25-35) Mean Corpuscular Hemoglobin Concent 33 g/dL (31-37) 33 g/dL (31-37) Red Cell Distribution Width 15.9 % (11.5-14.5) 16.0 % (11.5-14.5) Platelet Count 215 x10^3/uL (140-400) 265 x10^3/uL (140-400) Neutrophils (%) (Auto) 49 % (31-73) 52 % (31-73) Lymphocytes (%) (Auto) 28 % (24-48) 38 % (24-48) Monocytes (%) (Auto) 10 % (0-9) 9 % (0-9) Eosinophils (%) (Auto) 13 % (0-3) 1 % (0-3) Basophils (%) (Auto) 0 % (0-3) 0 % (0-3) Neutrophils # (Auto) 5.9 x10^3uL (1.8-7.7) 10.1 x10^3uL (1.8-7.7) Lymphocytes # (Auto) 3.4 x10^3/uL (1.0-4.8) 7.3 x10^3/uL (1.0-4.8) Monocytes # (Auto) 1.2 x10^3/uL (0.0-1.1) 1.8 x10^3/uL (0.0-1.1) Eosinophils # (Auto) 1.6 x10^3/uL (0.0-0.7) 0.1 x10^3/uL (0.0-0.7) Basophils # (Auto) 0.1 x10^3/uL (0.0-0.2) 0.0 x10^3/uL (0.0-0.2) Segmented Neutrophils % 69 % (35-66) Lymphocytes % 15 % (24-48) Atypical Lymphocytes % (Manual) 2 % (0-0) Monocytes % 3 % (0-10) Eosinophils % 11 % (0-5) Platelet Estimate Adequate (ADEQUATE) Prothrombin Time 34.4 SEC (11.7-14.0) 23.4 SEC (11.7-14.0) Prothromb Time International Ratio 3.7 (0.8-1.1) 2.2 (0.8-1.1) Sodium Level 137 mmol/L (136-145) Potassium Level 4.2 mmol/L (3.5-5.1) Chloride Level 104 mmol/L (98-107) Carbon Dioxide Level 28 mmol/L (21-32) Anion Gap 5 (6-14) Blood Urea Nitrogen 22 mg/dL (8-26) Creatinine 1.0 mg/dL (0.7-1.3) Estimated GFR (Cockcroft-Gault) 72.6 BUN/Creatinine Ratio 22 (6-20) Glucose Level 100 mg/dL (70-99) Calcium Level 8.7 mg/dL (8.5-10.1) Total Bilirubin 0.5 mg/dL (0.2-1.0) Aspartate Amino Transf (AST/SGOT) 35 U/L (15-37) Alanine Aminotransferase (ALT/SGPT) 40 U/L (16-63) Alkaline Phosphatase 103 U/L (46-116) Total Protein 7.3 g/dL (6.4-8.2) Albumin 2.5 g/dL (3.4-5.0) Albumin/Globulin Ratio 0.5 (1.0-1.7) Urine Collection Type Unknown Urine Color Yellow Urine Clarity Clear Urine pH 6.0 Urine Specific Mullan 1.015 Urine Protein Negative mg/dL (NEG-TRACE) Urine Glucose (UA) Negative mg/dL (NEG) Urine Ketones (Stick) Negative mg/dL (NEG) Urine Blood Negative (NEG) Urine Nitrite Negative (NEG) Urine Bilirubin Negative (NEG) Urine Urobilinogen Dipstick 0.2 mg/dL (0.2 mg/dL) Urine Leukocyte Esterase Negative (NEG) Urine RBC Occ /HPF (0-2) Urine WBC 0 /HPF (0-4) Urine Bacteria Few /HPF (0-FEW) Urine Mucus Mod /LPF Nasal Screen MRSA (PCR) Negative (Negative) Laboratory Tests Test 04/03/17 04:00 White Blood Count 19.4 x10^3/uL (4.0-11.0) Red Blood Count 3.64 x10^6/uL (4.30-5.70) Hemoglobin 10.4 g/dL (13.0-17.5) Hematocrit 31.9 % (39.0-53.0) Mean Corpuscular Volume 87 fL (79-100) Mean Corpuscular Hemoglobin 29 pg (25-35) Mean Corpuscular Hemoglobin Concent 33 g/dL (31-37) Red Cell Distribution Width 16.0 % (11.5-14.5) Platelet Count 265 x10^3/uL (140-400) Neutrophils (%) (Auto) 52 % (31-73) Lymphocytes (%) (Auto) 38 % (24-48) Monocytes (%) (Auto) 9 % (0-9) Eosinophils (%) (Auto) 1 % (0-3) Basophils (%) (Auto) 0 % (0-3) Neutrophils # (Auto) 10.1 x10^3uL (1.8-7.7) Lymphocytes # (Auto) 7.3 x10^3/uL (1.0-4.8) Monocytes # (Auto) 1.8 x10^3/uL (0.0-1.1) Eosinophils # (Auto) 0.1 x10^3/uL (0.0-0.7) Basophils # (Auto) 0.0 x10^3/uL (0.0-0.2) Prothrombin Time 23.4 SEC (11.7-14.0) Prothromb Time International Ratio 2.2 (0.8-1.1) Medications Current Medications Hydromorphone HCl (Dilaudid) 0.5 mg 1X ONCE IV Last administered on 04/02/17 03:31; Start 04/02/17 at 03:15; Stop 04/02/17 at 03:40; Status DC Ondansetron HCl (Zofran) 4 mg 1X ONCE IV Last administered on 04/02/17 03:31 ; Start 04/02/17 at 03:15; Stop 04/02/17 at 03:40; Status DC Sodium Chloride 1,000 ml @ 1,000 mls/hr 1X ONCE IV Last administered on 03:31; Start 04/02/17 at 03:15; Stop 04/02/17 at 04:14; Status DC Ondansetron HCl (Zofran) 4 mg PRN Q8HRS PRN IV NAUSEA/VOMITING Last administered on 04/02/17 16:23; Start 04/02/17 at 04:15; Stop 04/03/17 at 04:14 ; Status DC Fentanyl Citrate (Fentanyl 2ml Vial) 50 mcg PRN Q1HR PRN IV PAIN Last administered on 04/02/17 15:18; Start 04/02/17 at 04:15; Stop 04/03/17 at 04:14 ; Status DC Acetaminophen (Tylenol) 650 mg PRN Q4HRS PRN PO FEVER; Start 04/02/17 at 04:15 ; Stop 04/03/17 at 04:14; Status DC Phytonadione (Vitamin K) 2 mg 1X ONCE SQ Last administered on 04/02/17 15:25 ; Start 04/02/17 at 12:00; Stop 04/02/17 at 12:01; Status DC Hydromorphone HCl (Dilaudid) 1 mg PRN Q2HRS PRN IVP PAIN Last administered on 07:22; Start 04/02/17 at 16:15 Ondansetron HCl (Zofran) 4 mg PRN Q6HRS PRN IV NAUSEA/VOMITING; Start 04/03/17 at 08:30 Pantoprazole Sodium (Protonix) 40 mg DAILYAC PO ; Start 04/03/17 at 09:00 Albuterol Sulfate (Ventolin Hfa) 1 puff Q2HR PRN IH soa; Start 04/03/17 at 08: 30; Status UNV Amoxicillin/ Clavulanate Potassium (Augmentin 875/ 125mg) 1 tab BIDWMEALS PO ; Start 04/03/17 at 09:00 Nitroglycerin (Nitrostat) 0.4 mg PRN Q5MIN PRN SL cp; Start 04/03/17 at 08:30 Atorvastatin Calcium (Lipitor) 80 mg QHS PO ; Start 04/03/17 at 21:00 Albuterol Sulfate (Ventolin Neb Soln) 2.5 mg PRN Q2HRS PRN NEB SHORTNESS OF BREATH; Start 04/03/17 at 08:45 Sodium Chloride 1,000 ml @ 125 mls/hr Q8H IV ; Start 04/03/17 at 09:00 Sodium Chloride 1,000 ml @ 1,000 mls/hr 1X ONCE IV Last administered on 09:00; Start 04/03/17 at 09:00; Stop 04/03/17 at 09:59 Active Scripts Active Reported Augmentin 875-125 Tablet (Amoxicillin/Potassium Clav) 1 Each Tablet 1 Tab PO BID Proair Hfa (Albuterol Sulfate) 8.5 Gm Hfa.aer.ad 9 Gm IH Proscar (Finasteride) 5 Mg Tablet 1 Tab PO DAILY NITROGLYCERIN SubLingual (Nitroglycerin) 0.4 Mg Tab.subl 1 Tab SL UD Coumadin (Warfarin Sodium) 3 Mg Tablet 1 Tab PO DAILY Proair Hfa Inhaler (Albuterol Sulfate) 8.5 Gm Hfa.aer.ad 1-2 Inh IH Q4-6 HRS PRN Lipitor (Atorvastatin Calcium) 80 Mg Tablet 80 Mg PO DAILY Vitals/I & O Vital Sign - Last 24 Hours 04/02/17 04/02/17 04/02/17 04/02/17 10:00 11:00 12:00 12:00 Temp 98.2 98.2 Pulse 78 76 78 Resp 18 19 17 B/P (MAP) 124/63 (83) 120/65 (83) 122/68 (86) Pulse Ox 93 94 95 O2 Delivery Room Air Room Air Room Air Room Air 04/02/17 04/02/17 04/02/17 04/02/17 12:51 12:59 13:00 13:15 Temp 98.2 98.2 98.2 98.2 Pulse 80 82 82 Resp 23 14 14 13 B/P (MAP) 122/69 119/65 (83) 119/65 Pulse Ox 95 92 O2 Delivery Room Air Room Air 04/02/17 04/02/17 04/02/17 04/02/17 14:00 14:00 15:00 15:18 Temp 98.2 98.2 Pulse 80 80 84 Resp 18 18 25 28 B/P (MAP) 139/54 139/54 (82) 115/72 (86) Pulse Ox 94 94 94 O2 Delivery Room Air Room Air Room Air 04/02/17 04/02/17 04/02/17 04/02/17 15:55 16:00 16:00 16:29 Temp 98.2 98.2 Pulse 82 Resp 18 28 30 B/P (MAP) 125/73 (90) Pulse Ox 93 95 92 O2 Delivery Room Air Room Air Room Air Room Air 04/02/17 04/02/17 04/02/17 04/02/17 17:00 18:00 19:00 20:00 Pulse 81 78 93 Resp 16 18 15 B/P (MAP) 96/57 (70) 113/64 (80) 118/69 (85) Pulse Ox 93 94 93 O2 Delivery Room Air Room Air Room Air Room Air 04/02/17 04/02/17 04/02/17 04/02/17 20:00 21:00 21:16 22:00 Temp 98.3 98.3 Pulse 95 92 86 Resp 24 15 19 15 B/P (MAP) 97/66 (76) 110/62 (78) 101/61 (74) Pulse Ox 96 93 94 93 O2 Delivery Room Air Room Air Room Air Room Air 04/02/17 04/02/17 04/03/17 04/03/17 23:00 23:59 00:00 00:47 Temp 97.9 97.9 Pulse 83 91 Resp 13 22 22 B/P (MAP) 100/69 (79) 104/61 (75) Pulse Ox 93 93 97 O2 Delivery Room Air Room Air Room Air Room Air 04/03/17 04/03/17 04/03/17 04/03/17 01:00 01:17 02:00 03:00 Pulse 99 91 105 Resp 12 12 12 14 B/P (MAP) 93/42 (59) 100/47 (64) 90/42 (58) Pulse Ox 92 92 90 91 O2 Delivery Room Air Room Air Room Air Room Air 04/03/17 04/03/17 04/03/17 04/03/17 03:30 04:00 05:00 06:00 Temp 97.9 97.9 Pulse 94 94 93 Resp 17 16 18 B/P (MAP) 92/46 (61) 100/57 (71) 98/55 (69) Pulse Ox 90 92 91 O2 Delivery Room Air Room Air Room Air Room Air 04/03/17 07:00 Pulse 92 Resp 14 B/P (MAP) 81/48 (59) Pulse Ox 90 O2 Delivery Room Air Intake and Output 04/02/17 04/02/17 04/03/17 15:00 23:00 07:00 Intake Total 440 ml 100 ml 50 ml Output Total 670 ml 250 ml 200 ml Balance -230 ml -150 ml -150 ml Nutrition Consultation Dietary Evaluation: Recommendations by RD: Increase Calorie Intake, Protein supplementation Comments: Rec. 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
[2017-04-03] MEDS: NOREPINEPHRIN PREMIX 250 ML IV PRN ×2 (11:05→20:01)
--- NOTE | 2017-04-03 11:38 | RAD ---
CT of the abdomen and pelvis without contrast, 04/03/2017: History: Follow-up hematoma, dropping hemoglobin Noncontrast scans were obtained and compared to yesterday's study. There is increasing atelectasis in the right lung base. There is now a trace amount of right-sided pleural fluid. Minimal pericardial fluid is noted. Coronary artery radiopacities are present compatible with a stent and/or calcifications. The unopacified liver is unremarkable. No gallbladder abnormality is seen. The pancreas shows no abnormality. The spleen is of normal size. There is bilateral renal cortical scarring. There is a tiny nonobstructing calculus in the posterior aspect of the right kidney. The kidneys show no evidence of obstruction. There is moderate calcific plaquing of the abdominal aorta and its branches without evidence of aneurysm. 2 tiny calculi are seen within the posterior aspects aspect of the urinary bladder compatible with nonobstructing calculi. The prostate gland is enlarged. Yesterday's study showed enlargement of the right iliopsoas muscle with streaky adjacent increased density suggesting hemorrhage. These adjacent opacities have worsened considerably. This presumed hematoma now extends medially in the pelvis impressing upon the right side of the urinary bladder. It extends superiorly adjacent to the psoas muscle and in the posterior pararenal space causing mild anterior displacement of the kidney. The hemorrhage extends medially along the anterior aspect of the infrarenal abdominal aorta and inferior vena cava. There is now a small amount of free intraperitoneal fluid best seen along the lateral margin of the right lobe of the liver. Mild gaseous distention of the transverse colon and stomach may be due to an associated ileus. No free air seen in the abdomen. There are moderate scattered degenerative changes in the spine. There is an old L1 vertebral compression fracture. No definite acute fracture is seen. IMPRESSION: 1. Enlarging right retroperitoneal hemorrhage as described above which probably originated in the iliopsoas muscle. 2. Small amount of free intraperitoneal fluid. 3. Increasing right basilar atelectasis with a trace amount of right-sided pleural fluid. 4. Tiny bladder and right intrarenal calculi. 5. Nonspecific prostatic enlargement. PQRS Compliance Statement: One or more of the following individualized dose reduction techniques were utilized for this examination: 1. Automated exposure control 2. Adjustment of the mA and/or kV according to patient size 3. Use of iterative reconstruction technique
[2017-04-03] MEDS: ALBUTEROL SULFATE 2.5 MG/3 ML NEBU. NEB PRN ×2 (11:51→19:34)
--- NOTE | 2017-04-03 12:12 | PDOC ---
Provider Note Provider Note IR Note: Asked to assess progressive RP bleed---thank you. 76 YO male previously on Coumadin for chronic Afib. Now with significant progression in right RP hemorrhage, with acute blood loss anemia and hypotension , requiring Levophed BP support. INR has decreased from 3.7 to 2.2---now receiving FFP. Plts satisfactory. Hgb 10.4 this AM. Coumadin induced spontaneous RP hemorrhage is usually a difficult problem for endovascular management. Often times a dominant feeding vessel, which could arise from multiple possible abdominal or pelvic sources, cannot be identified. I have requested urgent CTA of abdomen and pelvis---if an arterial source of RP bleeding is demonstrated, then I will be happy to proceed with catheter directed angio +/- embolization. If no bleeding artery is identified at CTA ( which is more sensitive for active bleeding than formal angiography), then attempted "blind" IR intervention would almost certainly be futile and, therefore, would be contraindicated. Thanks again. Call for questions. DORIAN ESCAMILLA MD Apr 03, 2017 12:12
[2017-04-03 12:13] LABS: HEMATOCRIT 26.3 % (39.0-53.0); HEMOGLOBIN 8.4 g/dL (13.0-17.5)
[2017-04-03] MEDS ORDERED: IOHEXOL 350 MG/ML 100 ML VIAL. IV ONE (12:15)
--- NOTE | 2017-04-03 13:20 | RAD ---
CTA of the abdomen and pelvis with contrast, 04/03/2017, 12:27 PM: History: Retroperitoneal bleed Multidetector CT imaging was performed following an IV bolus injection of iodinated contrast material. Imaging was performed in an early arterial phase as well as a delayed portal venous phase. Multiplanar reconstructions were produced There is moderate calcific plaquing of the abdominal aorta and its branches without evidence of aneurysm. There is mild narrowing at the celiac artery origin. There is a single widely patent left renal artery. There are 2 right renal arteries with only mild calcific plaquing at their origins. There are scattered plaques in the iliac arteries without evidence of stenosis. The patient's large right retroperitoneal hematoma is again identified. There are abnormal collections of contrast within this area of hemorrhage as best seen on axial image 1065 of series #8 and coronal images 40 through 43 of series #9. The appearance suggests pseudoaneurysm with active bleeding. This lies at the upper pelvic level along the anterior margin of the enlarged right psoas muscle. The overall size of this hemorrhage and the small amount of associated peritoneal fluid appears to have increased slightly since earlier in the day at 10:[address] findings are unchanged since earlier in the day. IMPRESSION: Evidence of active bleeding within the patient's right abdominal-pelvic retroperitoneal hematoma as described above. Note: The findings were discussed with Dr. Connolly at 1:05 PM on 04/03/2017. PQRS Compliance Statement: One or more of the following individualized dose reduction techniques were utilized for this examination: 1. Automated exposure control 2. Adjustment of the mA and/or kV according to patient size 3. Use of iterative reconstruction technique
[2017-04-03] MEDS ORDERED: IOHEXOL 300 MG/ML 100ML VIAL. ONE ×2 (13:27→14:53)
[2017-04-03] MEDS ORDERED: LIDOCAINE 1% / SOD BICARB 8.4% 20 ML VIAL. IJ ONE ×2 (13:27→15:30)
[2017-04-03] MEDS ORDERED: IOHEXOL 300 MG/ML 50 ML VIAL. ONE (13:27)
[2017-04-03] MEDS ORDERED: HEPARIN for ARTERIAL LINE 1,500 ML ONE (13:28)
--- NOTE | 2017-04-03 13:30 | PDOC ---
Provider Note Provider Note IR Note: CTA completed and reviewed. An active arterial bleeding site was demonstrated within right RP, at level of upper pelvis. Therefore, IR will proceed with urgent arteriogram, with embolization, if the bleeding vessel can be localized and successfully cannulated. Based on CTA, right iliolumbar artery branch is thought most likely source of bleeding. DORIAN ESCAMILLA MD Apr 03, 2017 13:30
[2017-04-03] MEDS ORDERED: GELATIN SPONGE SIZE 12-7MM SPONGE. ONE ×2 (13:52→15:41)
[2017-04-03] MEDS ORDERED: fentaNYL PF VIAL 100 MCG/2 ML VIAL ONE (13:54)
[2017-04-03] MEDS ORDERED: MIDAZOLAM HCL/PF 2 MG/2 ML VIAL. ONE (13:54)
[2017-04-03] MEDS ORDERED: MIDAZOLAM HCL/PF 2 MG/2 ML VIAL. IV ONE (14:00)
[2017-04-03] MEDS ORDERED: fentaNYL PF VIAL 100 MCG/2 ML VIAL IV ONE (14:00)
[2017-04-03] MEDS ORDERED: ONDANSETRON PF 4 MG/2 ML VIAL. IV ONE (14:08)
--- NOTE | 2017-04-03 14:08 | PDOC ---
PROGRESS NOTES Subjective Subjective c/c - f/u of retroperitoneal bleed, ROS - has abd pain Objective Objective Vital Signs Date Time Temp Pulse Resp B/P (MAP) Pulse Ox O2 Delivery O2 Flow Rate FiO2 04/03/17 12:00 Room Air 04/03/17 11:52 96 04/03/17 07:00 92 14 81/48 (59) 04/03/17 04:00 97.9 97.9 Intake and Output 04/03/17 07:00 Intake Total 590 ml Output Total 1120 ml Balance -530 ml Intake Oral 530 ml Blood Product IV Normal Saline Flush 60 ml Output Urine Total 1120 ml # Bowel Movements 1 Physical Exam Heart: Normal S1, Normal S2 General: Alert, Oriented X3 Lungs: Clear to auscultation Neuro: Normal speech Psych/Mental Status: Mental status NL Assessment Assessment Problems Medical Problems: (1) Anticoagulated Status: Acute (2) Retroperitoneal bleed Status: Acute ASSESSMENT AND PLAN: The patient is a 76-year-old male with the following medical problems: 1. Coagulopathy due to coumadin - Acute right flank/abdominal pain, likely related to the right retroperitoneal bleed, although his Coumadin was only mildly supertherapeutic. I suspect he did recently have a fall giving the bruising on his other hip, even though he cannot recall a particular incident. Coumadin is on hold. He has received 2 units of FFP and 2 mg of vitamin K. INR better at 2.2, but Hb worse, agree to give 2 more units FFP. Appreciate IR eval: An active arterial bleeding site was demonstrated within right RP, at level of upper pelvis. Therefore, IR will proceed with urgent arteriogram, with embolization, if the bleeding vessel can be localized and successfully cannulated. Based on CTA, right iliolumbar artery branch is thought most likely source of bleeding. I d/w RN. 2. Atrial fibrillation. Coumadin on hold. Dr Hudson will f/u tomorrow. Comment Review of Relevant I have reviewed the following items sarbjit (where applicable) has been applied. Labs Laboratory Tests Test 04/02/17 03:30 04/02/17 04:10 04/02/17 08:25 04/03/17 04:00 White Blood Count 12.1 x10^3/uL (4.0-11.0) 19.4 x10^3/uL (4.0-11.0) Red Blood Count 4.72 x10^6/uL (4.30-5.70) 3.64 x10^6/uL (4.30-5.70) Hemoglobin 13.5 g/dL (13.0-17.5) 10.4 g/dL (13.0-17.5) Hematocrit 40.8 % (39.0-53.0) 31.9 % (39.0-53.0) Mean Corpuscular Volume 87 fL (79-100) 87 fL (79-100) Mean Corpuscular Hemoglobin 29 pg (25-35) 29 pg (25-35) Mean Corpuscular Hemoglobin Concent 33 g/dL (31-37) 33 g/dL (31-37) Red Cell Distribution Width 15.9 % (11.5-14.5) 16.0 % (11.5-14.5) Platelet Count 215 x10^3/uL (140-400) 265 x10^3/uL (140-400) Neutrophils (%) (Auto) 49 % (31-73) 52 % (31-73) Lymphocytes (%) (Auto) 28 % (24-48) 38 % (24-48) Monocytes (%) (Auto) 10 % (0-9) 9 % (0-9) Eosinophils (%) (Auto) 13 % (0-3) 1 % (0-3) Basophils (%) (Auto) 0 % (0-3) 0 % (0-3) Neutrophils # (Auto) 5.9 x10^3uL (1.8-7.7) 10.1 x10^3uL (1.8-7.7) Lymphocytes # (Auto) 3.4 x10^3/uL (1.0-4.8) 7.3 x10^3/uL (1.0-4.8) Monocytes # (Auto) 1.2 x10^3/uL (0.0-1.1) 1.8 x10^3/uL (0.0-1.1) Eosinophils # (Auto) 1.6 x10^3/uL (0.0-0.7) 0.1 x10^3/uL (0.0-0.7) Basophils # (Auto) 0.1 x10^3/uL (0.0-0.2) 0.0 x10^3/uL (0.0-0.2) Segmented Neutrophils % 69 % (35-66) Lymphocytes % 15 % (24-48) Atypical Lymphocytes % (Manual) 2 % (0-0) Monocytes % 3 % (0-10) Eosinophils % 11 % (0-5) Platelet Estimate Adequate (ADEQUATE) Prothrombin Time 34.4 SEC (11.7-14.0) 23.4 SEC (11.7-14.0) Prothromb Time International Ratio 3.7 (0.8-1.1) 2.2 (0.8-1.1) Sodium Level 137 mmol/L (136-145) Potassium Level 4.2 mmol/L (3.5-5.1) Chloride Level 104 mmol/L (98-107) Carbon Dioxide Level 28 mmol/L (21-32) Anion Gap 5 (6-14) Blood Urea Nitrogen 22 mg/dL (8-26) Creatinine 1.0 mg/dL (0.7-1.3) Estimated GFR (Cockcroft-Gault) 72.6 BUN/Creatinine Ratio 22 (6-20) Glucose Level 100 mg/dL (70-99) Calcium Level 8.7 mg/dL (8.5-10.1) Total Bilirubin 0.5 mg/dL (0.2-1.0) Aspartate Amino Transf (AST/SGOT) 35 U/L (15-37) Alanine Aminotransferase (ALT/SGPT) 40 U/L (16-63) Alkaline Phosphatase 103 U/L (46-116) Total Protein 7.3 g/dL (6.4-8.2) Albumin 2.5 g/dL (3.4-5.0) Albumin/Globulin Ratio 0.5 (1.0-1.7) Urine Collection Type Unknown Urine Color Yellow Urine Clarity Clear Urine pH 6.0 Urine Specific [place] 1.015 Urine Protein Negative mg/dL (NEG-TRACE) Urine Glucose (UA) Negative mg/dL (NEG) Urine Ketones (Stick) Negative mg/dL (NEG) Urine Blood Negative (NEG) Urine Nitrite Negative (NEG) Urine Bilirubin Negative (NEG) Urine Urobilinogen Dipstick 0.2 mg/dL (0.2 mg/dL) Urine Leukocyte Esterase Negative (NEG) Urine RBC Occ /HPF (0-2) Urine WBC 0 /HPF (0-4) Urine Bacteria Few /HPF (0-FEW) Urine Mucus Mod /LPF Nasal Screen MRSA (PCR) Negative (Negative) Test 04/03/17 12:00 Hemoglobin 8.4 g/dL (13.0-17.5) Hematocrit 26.3 % (39.0-53.0) Mean Corpuscular Hemoglobin Concent 32 g/dL (31-37) Laboratory Tests Test 04/03/17 04:00 04/03/17 12:00 White Blood Count 19.4 x10^3/uL (4.0-11.0) Red Blood Count 3.64 x10^6/uL (4.30-5.70) Hemoglobin 10.4 g/dL (13.0-17.5) 8.4 g/dL (13.0-17.5) Hematocrit 31.9 % (39.0-53.0) 26.3 % (39.0-53.0) Mean Corpuscular Volume 87 fL (79-100) Mean Corpuscular Hemoglobin 29 pg (25-35) Mean Corpuscular Hemoglobin Concent 33 g/dL (31-37) 32 g/dL (31-37) Red Cell Distribution Width 16.0 % (11.5-14.5) Platelet Count 265 x10^3/uL (140-400) Neutrophils (%) (Auto) 52 % (31-73) Lymphocytes (%) (Auto) 38 % (24-48) Monocytes (%) (Auto) 9 % (0-9) Eosinophils (%) (Auto) 1 % (0-3) Basophils (%) (Auto) 0 % (0-3) Neutrophils # (Auto) 10.1 x10^3uL (1.8-7.7) Lymphocytes # (Auto) 7.3 x10^3/uL (1.0-4.8) Monocytes # (Auto) 1.8 x10^3/uL (0.0-1.1) Eosinophils # (Auto) 0.1 x10^3/uL (0.0-0.7) Basophils # (Auto) 0.0 x10^3/uL (0.0-0.2) Prothrombin Time 23.4 SEC (11.7-14.0) Prothromb Time International Ratio 2.2 (0.8-1.1) Medications Current Medications Hydromorphone HCl (Dilaudid) 0.5 mg 1X ONCE IV Last administered on 04/02/17 03:31; Start 04/02/17 at 03:15; Stop 04/02/17 at 03:40; Status DC Ondansetron HCl (Zofran) 4 mg 1X ONCE IV Last administered on 04/02/17 03:31 ; Start 04/02/17 at 03:15; Stop 04/02/17 at 03:40; Status DC Sodium Chloride 1,000 ml @ 1,000 mls/hr 1X ONCE IV Last administered on 03:31; Start 04/02/17 at 03:15; Stop 04/02/17 at 04:14; Status DC Ondansetron HCl (Zofran) 4 mg PRN Q8HRS PRN IV NAUSEA/VOMITING Last administered on 04/02/17 16:23; Start 04/02/17 at 04:15; Stop 04/03/17 at 04:14 ; Status DC Fentanyl Citrate (Fentanyl 2ml Vial) 50 mcg PRN Q1HR PRN IV PAIN Last administered on 04/02/17 15:18; Start 04/02/17 at 04:15; Stop 04/03/17 at 04:14 ; Status DC Acetaminophen (Tylenol) 650 mg PRN Q4HRS PRN PO FEVER; Start 04/02/17 at 04:15 ; Stop 04/03/17 at 04:14; Status DC Phytonadione (Vitamin K) 2 mg 1X ONCE SQ Last administered on 04/02/17 15:25 ; Start 04/02/17 at 12:00; Stop 04/02/17 at 12:01; Status DC Hydromorphone HCl (Dilaudid) 1 mg PRN Q2HRS PRN IVP PAIN Last administered on 09:54; Start 04/02/17 at 16:15 Ondansetron HCl (Zofran) 4 mg PRN Q6HRS PRN IV NAUSEA/VOMITING; Start 04/03/17 at 08:30 Pantoprazole Sodium (Protonix) 40 mg DAILYAC PO ; Start 04/03/17 at 09:00 Albuterol Sulfate (Ventolin Hfa) 1 puff Q2HR PRN IH soa; Start 04/03/17 at 08: 30; Status UNV Amoxicillin/ Clavulanate Potassium (Augmentin 875/ 125mg) 1 tab BIDWMEALS PO ; Start 04/03/17 at 09:00 Nitroglycerin (Nitrostat) 0.4 mg PRN Q5MIN PRN SL cp; Start 04/03/17 at 08:30 Atorvastatin Calcium (Lipitor) 80 mg QHS PO ; Start 04/03/17 at 21:00 Albuterol Sulfate (Ventolin Neb Soln) 2.5 mg PRN Q2HRS PRN NEB SHORTNESS OF BREATH Last administered on 04/03/17 11:51; Start 04/03/17 at 08:45 Sodium Chloride 1,000 ml @ 125 mls/hr Q8H IV ; Start 04/03/17 at 09:00 Sodium Chloride 1,000 ml @ 1,000 mls/hr 1X ONCE IV Last administered on 09:00; Start 04/03/17 at 09:00; Stop 04/03/17 at 09:59; Status DC Norepinephrine Bitartrate 250 ml @ 0 mls/hr CONT PRN IV SEE I/O RECORD Last administered on 04/03/17 11:05; Start 04/03/17 at 11:00 Iohexol (Omnipaque 350 Mg/ml) 90 ml 1X ONCE IV Last administered on 04/03/17 12:27; Start 04/03/17 at 12:15; Stop 04/03/17 at 12:16; Status DC Iohexol (Omnipaque 300 Mg/ml) 50 ml STK-MED ONCE .ROUTE ; Start 04/03/17 at 13: 27; Stop 04/03/17 at 13:28; Status DC Iohexol (Omnipaque 300 Mg/ml) 100 ml STK-MED ONCE .ROUTE ; Start 04/03/17 at 13: 27; Stop 04/03/17 at 13:28; Status DC Lidocaine/Sodium Bicarbonate (Buffered Lidocaine 1%) 20 ml STK-MED ONCE IJ ; Start 04/03/17 at 13:27; Stop 04/03/17 at 13:28; Status DC Heparin Sodium/ Sodium Chloride 1,500 ml @ As Directed STK-MED ONCE .ROUTE ; Start 04/03/17 at 13:28; Stop 04/03/17 at 13:29; Status DC Gelatin (Gelfoam Size 12-7mm) 1 each STK-MED ONCE .ROUTE ; Start 04/03/17 at 13 :52; Stop 04/03/17 at 13:53; Status DC Fentanyl Citrate (Fentanyl 2ml Vial) 100 mcg STK-MED ONCE .ROUTE ; Start at 13:54; Stop 04/03/17 at 13:55; Status DC Midazolam HCl (Versed) 2 mg STK-MED ONCE .ROUTE ; Start 04/03/17 at 13:54; Stop 04/03/17 at 13:55; Status DC Active Scripts Active Reported Augmentin 875-125 Tablet (Amoxicillin/Potassium Clav) 1 Each Tablet 1 Tab PO BID Proair Hfa (Albuterol Sulfate) 8.5 Gm Hfa.aer.ad 9 Gm IH Proscar (Finasteride) 5 Mg Tablet 1 Tab PO DAILY NITROGLYCERIN SubLingual (Nitroglycerin) 0.4 Mg Tab.subl 1 Tab SL UD Coumadin (Warfarin Sodium) 3 Mg Tablet 1 Tab PO DAILY Proair Hfa Inhaler (Albuterol Sulfate) 8.5 Gm Hfa.aer.ad 1-2 Inh IH Q4-6 HRS PRN Lipitor (Atorvastatin Calcium) 80 Mg Tablet 80 Mg PO DAILY Vitals/I & O Vital Sign - Last 24 Hours 04/02/17 04/02/17 04/02/17 04/02/17 15:00 15:18 15:55 16:00 Pulse 84 Resp 25 28 18 B/P (MAP) 115/72 (86) Pulse Ox 94 94 93 O2 Delivery Room Air Room Air Room Air Room Air 04/02/17 04/02/17 04/02/17 04/02/17 16:00 16:29 17:00 18:00 Temp 98.2 98.2 Pulse 82 81 78 Resp 28 30 16 18 B/P (MAP) 125/73 (90) 96/57 (70) 113/64 (80) Pulse Ox 95 92 93 94 O2 Delivery Room Air Room Air Room Air Room Air 04/02/17 04/02/17 04/02/17 04/02/17 19:00 20:00 20:00 21:00 Temp 98.3 98.3 Pulse 93 95 92 Resp 15 24 15 B/P (MAP) 118/69 (85) 97/66 (76) 110/62 (78) Pulse Ox 93 96 93 O2 Delivery Room Air Room Air Room Air Room Air 04/02/17 04/02/17 04/02/17 04/02/17 21:16 22:00 23:00 23:59 Pulse 86 83 Resp 19 15 13 B/P (MAP) 101/61 (74) 100/69 (79) Pulse Ox 94 93 93 O2 Delivery Room Air Room Air Room Air Room Air 04/03/17 04/03/17 04/03/17 04/03/17 00:00 00:47 01:00 01:17 Temp 97.9 97.9 Pulse 91 99 Resp 22 22 12 12 B/P (MAP) 104/61 (75) 93/42 (59) Pulse Ox 93 97 92 92 O2 Delivery Room Air Room Air Room Air Room Air 04/03/17 04/03/17 04/03/17 04/03/17 02:00 03:00 03:30 04:00 Temp 97.9 97.9 Pulse 91 105 94 Resp 12 14 17 B/P (MAP) 100/47 (64) 90/42 (58) 92/46 (61) Pulse Ox 90 91 90 O2 Delivery Room Air Room Air Room Air Room Air 04/03/17 04/03/17 04/03/17 04/03/17 05:00 06:00 07:00 08:00 Pulse 94 93 92 Resp 16 18 14 B/P (MAP) 100/57 (71) 98/55 (69) 81/48 (59) Pulse Ox 92 91 90 O2 Delivery Room Air Room Air Room Air Room Air 04/03/17 04/03/17 11:52 12:00 Pulse Ox 96 O2 Delivery Room Air Room Air Intake and Output 04/02/17 04/02/17 04/03/17 15:00 23:00 07:00 Intake Total 440 ml 100 ml 50 ml Output Total 670 ml 250 ml 200 ml Balance -230 ml -150 ml -150 ml Nutrition Consultation Dietary Evaluation: Recommendations by RD: Increase Calorie Intake, Protein supplementation Comments: Rec. add boost breeze TID while on clear liquids (250 calories/9 grams protein per serving) Expected Outcomes/Goals: diet advancement diet tolerance Interpretation of weight loss: >10% in 6 months Malnutrition Findings: Food and Nutrition Intake (Mod: <75% est energy req 7days Reduced Stylist Assistant Strength: N/A Reduced Stylist Assistant Strength (Non-Sev: N/A Malnutrition related to morbid: No Weight Status: Appropriate Fluid Accumulation (N/A): N/A RHONDA DUNCAN MD Apr 03, 2017 14:08
[2017-04-03] MEDS ORDERED: ROCURONIUM 50 MG/5 ML VIAL. ONE (14:30)
[2017-04-03] MEDS ORDERED: PROPOFOL 20 ML IV ONE (14:30)
[2017-04-03] MEDS ORDERED: SUCCINYLCHOLINE 200 MG/10 ML VIAL. ONE (14:32)
[2017-04-03] MEDS ORDERED: PROPOFOL 100 ML IV ONE (15:16)
[2017-04-03] MEDS ORDERED: IOHEXOL 300 MG/ML 100ML VIAL. IART ONE (15:30)
[2017-04-03] MEDS ORDERED: NITROGLYCERIN 200 MCG/2 ML SYRINGE FOR CATH/VASC LAB. IART ONE (16:15)
[2017-04-03] MEDS: AMOXICILLIN/K CLAV 875/125MG TABLET. PO SCH ×2 (17:00→18:12)
[2017-04-03] MEDS ORDERED: PROPOFOL 100 ML IV PRN (17:15)
--- NOTE | 2017-04-03 17:37 | PDOC ---
MODERATE SEDATION ASSESSMENT RISKS/ALTERNATIVES Risks/Alternatives Risks and alternatives of this type of sedation and procedure discussed with: RISK/ALTERNATIVES: Patient H & P ON CHART H & P H & P on chart and reviewed for co-morbid conditions and appropriate labs. H&P ON CHART: Yes STATUS PREG STATUS ASSESSED: N/A MEDS/ALLERGIES REVIEWED Meds/Allergies Reviewed Medications and Allergies including time and route of recently administered narcotics and sedatives. MEDS/ALLERGIES REVIEWED: Yes ASA RATING ASA RATING: III AIRWAY ASSESSMENT Airway Assessment Airway patency, oral function limitations, presence of caps, crowns, dentures, partials, and ability to extend neck assessed. AIRWAY ASSESSMENT: Yes MALLAMPATI SCORE MALLAMPATI SCORE: II PRE-SEDATION ASSESSMENT PRE-SEDATION ASSESSMENT: Yes DORIAN ESCAMILLA MD Apr 03, 2017 17:37
--- NOTE | 2017-04-03 17:47 | PDOC ---
Exam Muffler Mechanic Muffler Mechanic Mohsen Logging Engineer Logging Engineer Sherry Bedoya Pre-Procedure Diagnosis Pre-Procedure Diagnosis 76 YO male with expanding right RP bleed, with acute blood loss anemia and with hypotension requiring Levophed for BP support. CTA abdomen/pelvis done earlier today revealed active RP arterial bleeding in likely right iliolumbar artery distribution. Post-Procedure Diagnosis Post-Procedure Diagnosis Same---right iliolumbar bleeding site confirmed angiographically. Procedure Performed Procedure Performed Selective/superselective right iliac arteriogram. Trans-microcatheter Gelfoam slurry and microcoil embolization of right iliolumbar artery. Type of Anesthesia Type of Anesthesia Initially local + moderate sedation, but converted to general anesthesia with intubation by Anesthesia, due to vomiting and high risk of aspiration. Estimated Blood Loss EBL: 50 cc Condition of Patient Condition of Patient Hemodynamically stable on Levophed drip. Procedure complicated by vomiting, with possible aspiration, resulting in conversion from moderate sedation to general anesthesia with ET tube placement by Anesthesia. No other complication. Disposition Disposition Returned directly from IR to ICU on vent post procedure. F/U with [facility]. Vent management per Pulmonary. Pressors PRN. Serial hemograms---transfuse as needed. Avoid anticoagulation for now. DORIAN ESCAMILLA MD Apr 03, 2017 17:47
[2017-04-03 17:48] LABS: BASE EXCESS COOX -10 mmol/L (-3-3); CARBON MONOXIDE 0.3 % (0.0-1.9); HCO3 COOX 18 mmol/L (21-28); METHEMOGLOBIN 0.7 % (0.0-1.9); OXYHEMOGLOBIN 84.3 %; PCO2 COOX 48 mmHg (35-46); PO2 COOX 63 mmHg (65-108); SAT O2 COOX 85 % (92-99); TOTAL HEMOGLOBIN 8.1 g/dL
[2017-04-03 17:54] LABS: FIO2 COOX 100; PH COOX 7.19 (7.35-7.45)
[2017-04-03] MEDS ORDERED: SODIUM BICARB ADULT 8.4% 50 MEQ/50 ML DISP.SYRIN. IV ONE ×2 (18:00→20:15)
--- NOTE | 2017-04-03 18:12 | RAD ---
Exam: AP portable chest History: Endotracheal tube placement. Comparison: January 03, 2017. Findings: Patient is rotated. Endotracheal tube tip projects 3 cm above the kenn. Esophagogastric tube is present with tip not seen, but at least to the body of the stomach. Dual-lead pacemaker via left subclavian approach is seen. Aortic atherosclerosis is noted. Cardiac silhouette is likely within normal limits for size. No pneumothorax is seen. Hazy density is seen at the lung bases, could represent pleural effusion and associated atelectasis versus pneumonia. Patchy parenchymal density seen in the right perihilar region. Impression: 1. Hazy density at the lung bases, could represent pleural effusion and associated atelectasis versus pneumonia. 2. Right perihilar infiltrate. Electronically signed by: Ab Davidson MD (04/03/2017 6:08 PM)
[2017-04-03] MEDS: IV NORMAL SALINE 1000ML BAG 1,000 ML IV SCH ×2 (18:13→18:23)
[2017-04-03 19:26] LABS: HCO3 ABG 19 mmol/L (21-28); PCO2 ABG 47 mmHg (35-46); PH ABG 7.22 (7.35-7.45); PO2 ABG 61 mmHg (65-108); SAT O2 ABG 86 % (92-99)
[2017-04-03 19:35] LABS: FIO2 ABG 100
[2017-04-03 19:44] LABS: HEMATOCRIT 26.1 % (39.0-53.0); HEMOGLOBIN 8.5 g/dL (13.0-17.5)
[2017-04-03 20:23] LABS: INR 1.5 (0.8-1.1); PROTHROMBIN TIME PATIENT 17.1 SEC (11.7-14.0)
[2017-04-03] MEDS: CHLORHEXIDINE 0.12% 15 ML MOUTHWASH. MM SCH (21:03)
[2017-04-03] MEDS: ATORVASTATIN CALCIUM 40 MG TABLET. PO SCH (21:03)
[2017-04-03] MEDS ORDERED: PHENYLEPHRINE INJ 20 MG in IV NORMAL SALINE 250ML 250 ML IV PRN (21:45)
[2017-04-03] MEDS ORDERED: PIP/TAZO PER PHARMACY MC PRN (22:00)
[2017-04-03] MEDS ORDERED: VANCOMYCIN 2 GM in IV NORMAL SALINE 500ML BAG 500 ML IV ONE (22:00)
[2017-04-03] MEDS: VANCOMYCIN PER PHARMACY MC PRN ×2 (22:00→22:01)
[2017-04-03] MEDS: MIDAZOLAM PREMIX 100 ML IV PRN (22:09)
--- NOTE | 2017-04-03 22:14 | RAD ---
Exam: AP portable chest History: Diminished breath sounds. Comparison: Chest radiograph 4 hours earlier. Findings: Endotracheal tube tip projects 5 cm above the kenn. Esophagogastric tube is present with tip projecting at the body of the stomach. Dual-lead pacemaker by left subclavian approach is unchanged. There is improved aeration of both lung bases with mild patchy density at the right lung base. Right perihilar parenchymal density is similar. No pneumothorax is seen. There may be a small right pleural effusion. Impression: 1. Interval improved aeration of the lung bases. Otherwise, no significant interval change. Electronically signed by: Ab Davidson MD (04/03/2017 10:11 PM)
[2017-04-03 22:50] LABS: CALCIUM 7.4 mg/dL (8.5-10.1); CREATININE 2.4 mg/dL (0.7-1.3); GFR 26.5; POTASSIUM 5.2 mmol/L (3.5-5.1)
[2017-04-04] VITALS (56 sets, daily range): BP systolic 60–153; BP diastolic 46–82
[2017-04-04] MEDS ORDERED: IV NORMAL SALINE 500ML BAG 500 ML IV ONE (00:30)
[2017-04-04] MEDS: PIPERACILLIN/TAZOBACTAM 4.5 GM in IV NORMAL SALINE 100ML 100 ML IV SCH ×2 (00:31→05:37)
[2017-04-04] MEDS: NOREPINEPHRIN PREMIX 250 ML IV PRN ×4 (00:32→20:49)
[2017-04-04 03:07] LABS: HEMATOCRIT 23.7 % (39.0-53.0); HEMOGLOBIN 7.4 g/dL (13.0-17.5)
[2017-04-04 03:53] LABS: HEMATOCRIT 23.5 % (39.0-53.0); HEMOGLOBIN 7.5 g/dL (13.0-17.5)
[2017-04-04 04:02] LABS: INR 1.7 (0.8-1.1); PROTHROMBIN TIME PATIENT 18.7 SEC (11.7-14.0)
[2017-04-04] MEDS: IV NORMAL SALINE 1000ML BAG 1,000 ML IV SCH ×3 (05:37→21:11)
[2017-04-04 06:49] LABS: CREATININE 2.4 mg/dL (0.7-1.3); GFR 26.5; POTASSIUM 4.7 mmol/L (3.5-5.1)
--- NOTE | 2017-04-04 07:28 | PDOC ---
Infectious Disease Note ROS ROS GEN: Denies fevers, chills, sweats HEENT: Denies blurred vision, sore throat CV: Denies chest pain RESP: Denies shortness of air, cough GI: Denies n/v/d NEURO: Denies confusion, dizziness MSK: Denies weakness, joint pain/swelling Vital Sign Vital Signs Vital Signs Date Time Temp Pulse Resp B/P (MAP) Pulse Ox O2 Delivery O2 Flow Rate FiO2 04/04/17 06:00 88 26 119/71 (87) 100 Ventilator 04/04/17 05:00 99.2 99.2 Physical Exam PHYSICAL EXAM GENERAL: NAD, Alert HEENT: PERRL, OC/OP NECK: Supple, no JVD, no LN LUNGS: Clear HEART: S1S2, no gallop, no murmur ABD: Soft, NT, no organomegaly, no rebound EXT: No edema, no cyanosis DESKTOP SUPPORT ENGINEER: Alert, oriented x 3, no focal neurologic deficit SKIN: No rash IV: ok Labs Lab Laboratory Tests Test 04/03/17 12:00 04/03/17 17:45 04/03/17 19:00 04/03/17 22:10 Hemoglobin 8.4 g/dL (13.0-17.5) 8.5 g/dL (13.0-17.5) Hematocrit 26.3 % (39.0-53.0) 26.1 % (39.0-53.0) Mean Corpuscular Hemoglobin Concent 32 g/dL (31-37) 33 g/dL (31-37) O2 Saturation 85 % (92-99) 86 % (92-99) Arterial Blood pH 7.19 (7.35-7.45) 7.22 (7.35-7.45) Arterial Blood pCO2 at Patient Temp 48 mmHg (35-46) 47 mmHg (35-46) Arterial Blood pO2 at Patient Temp 63 mmHg (65-108) 61 mmHg (65-108) Arterial Blood HCO3 18 mmol/L (21-28) 19 mmol/L (21-28) Arterial Blood Base Excess -10 mmol/L (-3-3) -8 mmol/L (-3-3) Oxyhemoglobin 84.3 % Methemoglobin 0.7 % (0.0-1.9) Carbon Monoxide, Quantitative 0.3 % (0.0-1.9) FiO2 100 100 Prothrombin Time 17.1 SEC (11.7-14.0) Prothromb Time International Ratio 1.5 (0.8-1.1) Sodium Level 137 mmol/L (136-145) Potassium Level 5.2 mmol/L (3.5-5.1) Chloride Level 104 mmol/L (98-107) Carbon Dioxide Level 20 mmol/L (21-32) Anion Gap 13 (6-14) Blood Urea Nitrogen 45 mg/dL (8-26) Creatinine 2.4 mg/dL (0.7-1.3) Estimated GFR (Cockcroft-Gault) 26.5 Glucose Level 97 mg/dL (70-99) Lactic Acid Level 4.9 mmol/L (0.4-2.0) Calcium Level 7.4 mg/dL (8.5-10.1) Test 04/04/17 00:05 04/04/17 03:30 Hemoglobin 7.4 g/dL (13.0-17.5) 7.5 g/dL (13.0-17.5) Hematocrit 23.7 % (39.0-53.0) 23.5 % (39.0-53.0) Mean Corpuscular Hemoglobin Concent 31 g/dL (31-37) 32 g/dL (31-37) Prothrombin Time 18.7 SEC (11.7-14.0) Prothromb Time International Ratio 1.7 (0.8-1.1) Sodium Level 139 mmol/L (136-145) Potassium Level 4.7 mmol/L (3.5-5.1) Chloride Level 108 mmol/L (98-107) Carbon Dioxide Level 19 mmol/L (21-32) Anion Gap 12 (6-14) Blood Urea Nitrogen 43 mg/dL (8-26) Creatinine 2.4 mg/dL (0.7-1.3) Estimated GFR (Cockcroft-Gault) 26.5 Glucose Level 107 mg/dL (70-99) Lactic Acid Level 3.7 mmol/L (0.4-2.0) Calcium Level 7.0 mg/dL (8.5-10.1) Objective Assessment Sepsis vs SIRS - on of levophed Retroperitoneal bleed s/p 04/03 Selective/superselective right iliac arteriogram.Trans-microcatheter Gelfoam slurry and microcoil embolization of right iliolumbar artery Aspiration -vomiting 04/03 MARTHA Resp failure Levoflox allergy - tendon rupture/Bactrim allergy - sores Afib Plan Plan of Care Hold Vanc with MARTHA Adjust Zosyn May need antifungal PICC line Renal consult - Phos/MG/Ionized Ca/UA Cardiology consult pending Add LFTs/WBC this am/Platelets Labs in am Blood cults 04/03 pending CHeck Sputum cults May need repeat Abd imaging Critically ill D/w family Thank you 35 mins # [id number] CAM LEWIS MD Apr 04, 2017 07:28
[2017-04-04] MEDS: PANTOPRAZOLE 40 MG TABLET.DR. PO SCH (07:30)
--- NOTE | 2017-04-04 07:32 | RAD ---
Portable chest, 04/04/2017: History: Respiratory distress Comparison is made to yesterday evenings study. An ET tube has its tip located well above the kenn. An NG tube extends into the stomach. A left-sided transvenous pacemaker is unchanged. The heart size and pulmonary vascularity are normal. There is an unchanged right basilar opacity compatible with a small amount of pleural fluid and underlying atelectasis. A mild right parahilar opacity has partially cleared. No new abnormality is detected. IMPRESSION: 1. The ET tube and NG tube remain in place in satisfactory positions. 2. Stable right basilar opacity compatible with a small amount of pleural fluid and associated atelectasis.
[2017-04-04 07:46] LABS: DIRECT BILIRUBIN 0.3 mg/dL (0.0-0.2); MAGNESIUM 1.9 mg/dL (1.8-2.4); PHOSPHORUS 4.9 mg/dL (2.6-4.7); TOTAL BILIRUBIN 0.8 mg/dL (0.2-1.0); TOTAL PROTEIN 5.5 g/dL (6.4-8.2)
[2017-04-04] MEDS: ALBUTEROL SULFATE 2.5 MG/3 ML NEBU. NEB PRN ×3 (08:44→20:03)
--- NOTE | 2017-04-04 08:52 | PDOC ---
Subjective: Subjective: Onc f/u- Retroperitoneal hematoma Intubated, sedated Aspirated in IR Still on levophed Objective: Vital Signs: Vital Signs Date Time Temp Pulse Resp B/P (MAP) Pulse Ox O2 Delivery O2 Flow Rate FiO2 04/04/17 06:00 88 26 119/71 (87) 100 Ventilator 04/04/17 05:00 99.2 99.2 Physical Exam: Abdomen: Other (less distention) Heart: Regular rate, Other (irregularly irregular) Extremities: No edema General: Other (sedated) Lungs: Other (ventilated) Labs/Imaging: HGb ~ 7.5 (dropped from 13.5 on admit) INR 1.7 Lactated elevated Assessment/Plan A/P: 1. Retroperitoneal bleed s/p embolization of right iliolumbar artery 04/03. Following serial hgb, transfusing for hgb < 7. Received 1 unit PRBC overnight. 2. Vomiting, Possible aspiration, SIRS, elevated lactated. Now intubated, on levophed, abx. ID following. Possible repeat abd imaging in future. 3. A fib. Coumadin on hold (INR 3.7 on admit). S/p 4 unit FFP, Vit K. To receive another FFP this AM. D/W nurse. BONNIE LOZA DO Apr 04, 2017 08:52
--- NOTE | 2017-04-04 09:07 | PDOC2 ---
HENNA HOBBS [employer]OR[employer] 04/04/17 0907: CARDIAC CONSULT DATE OF CONSULT Date of Consult DATE: 04/04/17 TIME: 08:52 REASON FOR CONSULT Reason for Consult: Possible Arrhythmia REFERRING PHYSICIAN Referring Physician: Latanya SOURCE Source: Caregiver (spouse), Chart review HISTORY OF PRESENT ILLNESS HISTORY OF PRESENT ILLNESS This is a 76 yo male admitted for complains of right side abdominal pain. Currently he is intubated and unable to obtain details so spouse provided further information. This started yesterday and the pain was significant and was standing up when it occurred. He sat down accdg to spouse and the pain got worse prompting him to go to ED. There was no complains of any other symptoms at that time. Upon further diagnostics he was noted with retroperitoneal bleed and further treatment was initiated. With the procedure, per staff he did have some vomiting episode which likely he aspirated. Ensuing respiratory failure and prompted intubation. Currently he is on multiorgan failure. At this time cardiac dickey he has underlying AFIB v paced otherwise without significant ectopies. He did not have any episodes of fall nor issues with contusion or accidental bumps that would contribute to this event. No recent MVA. He did have episodes of intractable coughing over a week ago and was treated with antibiotics and also has been constipated. He is also on coumadin therapy for his AFIB. He follows with Dr. España with cardiology and cardiac dickey he has been told that he has been doing well. He still works at [employer] and has not had any issues with his ADL tolerance. PAST MEDICAL HISTORY Past Medical History Cardiovascular: AFIB (SSS), CAD, Hyperlipidemia, Other (SSS?) Pulmonary: COPD (from passive smoking), Other (JET with CPAP) CENTRAL NERVOUS SYSTEM: CVA (1999 no residual nor recurrence) GI: Diverticulosis, Other (hiatal hernia; colon polyps) Heme/Onc: Other (chronic OAC with coumadin) Hepatobiliary: No pertinent hx Musculoskeletal: Osteoarthritis Rheumatologic: No pertinent hx ENT: Other (cataract) Renal/: Benign prostatic enlarg. Endocrine: Hypothyroidism (resolved and taken off replacement >1 yr ago) Dermatology: No pertinent hx PAST SURGICAL HISTORY Past Surgical History: Pacemaker (dual chamber), Arthroscopy (right shoulder RTC repair and bilateral knee meniscus repair), Cataract Removal, Other ( cardiac ablation 2011; PCI/stent 2011; oral surgery) FAMILY HISTORY Family History: Cancer SOCIAL HISTORY Smoke: No ALCOHOL: none Drugs: None Lives: with Family CURRENT MEDICATIONS CURRENT MEDICATIONS Current Medications Medications (Trade) Dose Ordered Sig/Negar Route PRN Reason Start Time Stop Time Status Last Admin Dose Admin Amoxicillin/ Clavulanate Potassium (Augmentin 875/ 125mg) 1 tab BIDWMEALS PO 04/03/17 09:00 04/04/17 07:31 DC 04/03/17 18:12 Atorvastatin Calcium (Lipitor) 80 mg QHS PO 04/03/17 21:00 04/03/17 21:03 Sodium Chloride 1,000 ml @ 125 mls/hr Q8H IV 04/03/17 09:00 04/04/17 05:37 Sodium Chloride 1,000 ml @ 1,000 mls/hr 1X ONCE IV 04/03/17 09:00 04/03/17 09:59 DC 04/03/17 09:00 Norepinephrine Bitartrate 250 ml @ 0 mls/hr CONT PRN IV SEE I/O RECORD 04/03/17 11:00 04/04/17 06:25 Iohexol (Omnipaque 350 Mg/ml) 90 ml 1X ONCE IV 04/03/17 12:15 04/03/17 12:16 DC 04/03/17 12:27 Heparin Sodium/ Sodium Chloride 1,000 unit 1X ONCE IART 04/03/17 15:30 04/03/17 15:31 DC 04/03/17 16:46 Lidocaine/Sodium Bicarbonate (Buffered Lidocaine 1%) 20 ml 1X ONCE IJ 04/03/17 15:30 04/03/17 15:31 DC 04/03/17 16:46 Midazolam HCl (Versed) 1 mg 1X ONCE IV 04/03/17 14:00 04/03/17 15:23 DC 04/03/17 16:55 Fentanyl Citrate (Fentanyl 2ml Vial) 50 mcg 1X ONCE IV 04/03/17 14:00 04/03/17 15:23 DC 04/03/17 16:56 Iohexol (Omnipaque 300 Mg/ml) 100 ml 1X ONCE IART 04/03/17 15:30 04/03/17 15:31 DC 04/03/17 16:45 Ondansetron HCl (Zofran) 4 mg 1X ONCE IV 04/03/17 14:08 04/03/17 15:23 DC 04/03/17 16:48 Nitroglycerin (Nitroglycerin) 200 mcg 1X ONCE IART 04/03/17 16:15 04/03/17 16:16 DC 04/03/17 16:47 Chlorhexidine Gluconate (Peridex) 15 ml BID MM 04/03/17 21:00 04/03/17 21:03 Sodium Bicarbonate 100 meq 1X ONCE IV 04/03/17 18:00 04/03/17 18:01 DC 04/03/17 18:12 Sodium Bicarbonate 100 meq 1X ONCE IV 04/03/17 20:15 04/03/17 20:16 DC 04/03/17 21:04 Sodium Chloride 1,000 ml @ 1,000 mls/hr 1X ONCE IV 04/03/17 21:45 04/03/17 22:44 DC 04/03/17 22:08 Midazolam HCl 100 ml @ 0 mls/hr CONT PRN IV SEE I/O RECORD 04/03/17 21:45 04/03/17 22:09 Vancomycin HCl (Vanco Per Pharmacy) 1 each PRN DAILY PRN MC SEE COMMENTS 04/03/17 22:00 04/04/17 07:29 DC 04/03/17 22:01 Vancomycin HCl 2 gm/Sodium Chloride 500 ml @ 250 mls/hr 1X ONCE IV 04/03/17 22:00 04/03/17 23:59 DC 04/03/17 22:09 Piperacillin Sod/ Tazobactam Sod 4.5 gm/Sodium Chloride 100 ml @ 200 mls/hr Q6HRS IV 04/04/17 00:00 04/04/17 07:29 DC 04/04/17 05:37 Sodium Chloride 1,000 ml @ 1,000 mls/hr 1X ONCE IV 04/03/17 23:30 04/04/17 00:29 DC 04/03/17 23:27 Sodium Chloride 500 ml @ 500 mls/hr 1X ONCE IV 04/04/17 00:30 04/04/17 01:30 DC 04/04/17 00:28 ALLERGIES ALLERGIES: Coded Allergies: levofloxacin (Verified Allergy, Severe, RUPTURE OF ACHILLES TENDON, 03/22/14 ) amiodarone (Verified Allergy, Intermediate, 01/04/17) fluticasone (Verified Allergy, Intermediate, MAKES SORES, 03/22/14) montelukast (Verified Allergy, Intermediate, EAR PAIN, 01/04/17) salmeterol (Verified Allergy, Intermediate, MAKES SORES, 03/22/14) Sulfa (Sulfonamide Antibiotics) (Verified Allergy, Mild, "MAKES SORES", 03/22/14) budesonide (Verified Allergy, Mild, RASH, 03/22/14) ROS Review of System unobtainable, pt intubated PHYSICAL EXAM General: Other (intubated) HEENT: Atraumatic, Mucous membr. moist/pink Lungs: Other (rhonchi throughout- intubated with mech vent) Heart: Other (distant heart sounds; V paced with underlying AFIB controlled) Extremities: No cyanosis, Other (trace LE) Skin: No breakdown, No significant lesion Neuro: Other (sedated) MUSCULOSKELETAL: Osteoarthritic changes both hands VITALS VITALS Vital Signs Date Time Temp Pulse Resp B/P (MAP) Pulse Ox O2 Delivery O2 Flow Rate FiO2 04/04/17 06:00 88 26 119/71 (87) 100 Ventilator 04/04/17 05:00 99.2 99.2 LABS Lab: Laboratory Tests Test 04/03/17 12:00 04/03/17 17:45 04/03/17 19:00 04/03/17 22:10 Hemoglobin 8.4 g/dL (13.0-17.5) 8.5 g/dL (13.0-17.5) Hematocrit 26.3 % (39.0-53.0) 26.1 % (39.0-53.0) Mean Corpuscular Hemoglobin Concent 32 g/dL (31-37) 33 g/dL (31-37) O2 Saturation 85 % (92-99) 86 % (92-99) Arterial Blood pH 7.19 (7.35-7.45) 7.22 (7.35-7.45) Arterial Blood pCO2 at Patient Temp 48 mmHg (35-46) 47 mmHg (35-46) Arterial Blood pO2 at Patient Temp 63 mmHg (65-108) 61 mmHg (65-108) Arterial Blood HCO3 18 mmol/L (21-28) 19 mmol/L (21-28) Arterial Blood Base Excess -10 mmol/L (-3-3) -8 mmol/L (-3-3) Oxyhemoglobin 84.3 % Methemoglobin 0.7 % (0.0-1.9) Carbon Monoxide, Quantitative 0.3 % (0.0-1.9) FiO2 100 100 Prothrombin Time 17.1 SEC (11.7-14.0) Prothromb Time International Ratio 1.5 (0.8-1.1) Sodium Level 137 mmol/L (136-145) Potassium Level 5.2 mmol/L (3.5-5.1) Chloride Level 104 mmol/L (98-107) Carbon Dioxide Level 20 mmol/L (21-32) Anion Gap 13 (6-14) Blood Urea Nitrogen 45 mg/dL (8-26) Creatinine 2.4 mg/dL (0.7-1.3) Estimated GFR (Cockcroft-Gault) 26.5 Glucose Level 97 mg/dL (70-99) Lactic Acid Level 4.9 mmol/L (0.4-2.0) Calcium Level 7.4 mg/dL (8.5-10.1) Test 04/04/17 00:05 04/04/17 03:30 Hemoglobin 7.4 g/dL (13.0-17.5) 7.5 g/dL (13.0-17.5) Hematocrit 23.7 % (39.0-53.0) 23.5 % (39.0-53.0) Mean Corpuscular Hemoglobin Concent 31 g/dL (31-37) 32 g/dL (31-37) Prothrombin Time 18.7 SEC (11.7-14.0) Prothromb Time International Ratio 1.7 (0.8-1.1) Sodium Level 139 mmol/L (136-145) Potassium Level 4.7 mmol/L (3.5-5.1) Chloride Level 108 mmol/L (98-107) Carbon Dioxide Level 19 mmol/L (21-32) Anion Gap 12 (6-14) Blood Urea Nitrogen 43 mg/dL (8-26) Creatinine 2.4 mg/dL (0.7-1.3) Estimated GFR (Cockcroft-Gault) 26.5 Glucose Level 107 mg/dL (70-99) Lactic Acid Level 3.7 mmol/L (0.4-2.0) Calcium Level 7.0 mg/dL (8.5-10.1) Phosphorus Level 4.9 mg/dL (2.6-4.7) Magnesium Level 1.9 mg/dL (1.8-2.4) Total Bilirubin 0.8 mg/dL (0.2-1.0) Direct Bilirubin 0.3 mg/dL (0.0-0.2) Aspartate Amino Transf (AST/SGOT) 41 U/L (15-37) Alanine Aminotransferase (ALT/SGPT) 29 U/L (16-63) Alkaline Phosphatase 63 U/L (46-116) Total Protein 5.5 g/dL (6.4-8.2) Albumin 2.0 g/dL (3.4-5.0) ASSESSMENT/PLAN ASSESSMENT/PLAN 1. Retroperitoneal bleed bleed: unclear- possibly spontaneous but contributing coumadin and prior intractable coughing and constipation as well. S/P embolization to right iliolumbar artery 2. Sepsis: ID on board 3. Acute Respiratory failure: likely aspiration upon vomiting. Intubated/vent pulmonary managing 4. Hx of AFIB with coumadin therapy: appears chronic and currently V pacing with underlying afib. 5. CAD: PCI/stent 2011. no cardiac symptoms prior to admission with good activity tolerance.. 6. 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 Hx of tachy-monse syndrome 7. Anemia: S/P FFP and PRBC, Hgb 6.9. Further transfusion today. Hemonc on board 8. MARTHA: renal on board 9. Gastroesophageal erosion? GI bleed?- OG with coffee ground contents.PPI on board. Per PCP Recommendations 1. No further OAC/NOAC. Future stroke prevention measures would be ASA. 2. Continue vasopressor, titrate as warranted. Currently on levophed. 3. TTE today, will obtain cardiac records from [facility]. 4. Interrogate device 5. Maintain supportive care. 6. HR in the 80-90s, per spouse not on any antiarrhythmic drugs. Will await cardiac records and will reeval needs for any rate controlling meds. Problems: JUAN WHIPPLE MD 04/06/17 0922: CARDIAC CONSULT ALLERGIES ALLERGIES: Coded Allergies: levofloxacin (Verified Allergy, Severe, RUPTURE OF ACHILLES TENDON, 03/22/14 ) amiodarone (Verified Allergy, Intermediate, 01/04/17) fluticasone (Verified Allergy, Intermediate, MAKES SORES, 03/22/14) montelukast (Verified Allergy, Intermediate, EAR PAIN, 01/04/17) salmeterol (Verified Allergy, Intermediate, MAKES SORES, 03/22/14) Sulfa (Sulfonamide Antibiotics) (Verified Allergy, Mild, "MAKES SORES", 03/22/14) budesonide (Verified Allergy, Mild, RASH, 03/22/14) ASSESSMENT/PLAN ASSESSMENT/PLAN Late entry for 04/04/2017. Patient seen and examined. Agree with above nurse practitioner note. 76-year-old male in critical situation after GI bleeding. He has multiple organ failure. Cardiology is been asked to evaluate him for tachycardia in the setting of hypovolemic shock. He has known cardiac pacemaker and is appropriately being paced. No obvious new arrhythmias noted. Known chronic A. fib. Supportive care from a cardiac perspective. Thank you for this consultation. Problems: HENNA HOBBS APRN Apr 04, 2017 09:07 JUAN WHIPPLE MD Apr 06, 2017 09:22
[2017-04-04 09:13] LABS: WHITE BLOOD COUNT 53.2 x10^3/uL (4.0-11.0)
[2017-04-04] MEDS ORDERED: LIDOCAINE 1% / SOD BICARB 8.4% 20 ML VIAL. IJ ONE ×2 (09:15→11:30)
[2017-04-04] MEDS ORDERED: HEPARIN for IV BOLUS 10,000 UNIT/10 ML VIAL. ONE ×2 (09:17→11:33)
[2017-04-04 09:21] LABS: HCO3 ABG 17 mmol/L (21-28); PCO2 ABG 32 mmHg (35-46); PH ABG 7.34 (7.35-7.45); PO2 ABG 137 mmHg (65-108); SAT O2 ABG 98 % (92-99)
[2017-04-04 09:25] LABS: FIO2 ABG 100
--- NOTE | 2017-04-04 09:37 | PDOC ---
PROGRESS NOTES Chief Complaint Chief Complaint cc: retroperitoneal bleed A/P 1. Retroperitoneal bleed: S/P microcoil embolization of right iliolumbar artery : hemoglobin stable. IR following. 2. Acute anemia of blood loss from above: s/p PRBC AND S/P FFP 3. Coumadin coagulopathy: INR 1.7, Hold Coumadin. 4. Leukocytosis, ? sepsis, ? aspiration : On zosyn and micafungin, ID following. 5, Acute respiratory failure on mechanical ventilation, D/W Pulmonology 6. Hemorrhagic shock: on Levophed, monitor H and H, transfuse as needed. Bolus NS 500 ml now, and 125mls/hr 7. Chronic lumbago, hypothyroidism, 8. Renal failure: Temp HD cathter placement today. nephrology consulted 9. Afib, pacemaker on Coumadin: holding Coumadin, pacer in situ 10. condition:critical, prognosis poor/ guarded. CC Total time 34 min Vitals Vitals Vital Signs Date Time Temp Pulse Resp B/P (MAP) Pulse Ox O2 Delivery O2 Flow Rate FiO2 04/04/17 08:44 100 Ventilator 04/04/17 06:00 88 26 119/71 (87) 04/04/17 05:00 99.2 99.2 Physical Exam General: Other (intubated and sedated. ) Heart: Regular rate, Other (irregularly irregular) Lungs: Clear, Other Abdomen: Normal bowel sounds, Other (less distention) Extremities: No edema Skin: No significant lesion Labs LABS Laboratory Tests Test 04/03/17 12:00 04/03/17 17:45 04/03/17 19:00 04/03/17 22:10 Hemoglobin 8.4 g/dL (13.0-17.5) 8.5 g/dL (13.0-17.5) Hematocrit 26.3 % (39.0-53.0) 26.1 % (39.0-53.0) Mean Corpuscular Hemoglobin Concent 32 g/dL (31-37) 33 g/dL (31-37) O2 Saturation 85 % (92-99) 86 % (92-99) Arterial Blood pH 7.19 (7.35-7.45) 7.22 (7.35-7.45) Arterial Blood pCO2 at Patient Temp 48 mmHg (35-46) 47 mmHg (35-46) Arterial Blood pO2 at Patient Temp 63 mmHg (65-108) 61 mmHg (65-108) Arterial Blood HCO3 18 mmol/L (21-28) 19 mmol/L (21-28) Arterial Blood Base Excess -10 mmol/L (-3-3) -8 mmol/L (-3-3) Oxyhemoglobin 84.3 % Methemoglobin 0.7 % (0.0-1.9) Carbon Monoxide, Quantitative 0.3 % (0.0-1.9) FiO2 100 100 Prothrombin Time 17.1 SEC (11.7-14.0) Prothromb Time International Ratio 1.5 (0.8-1.1) Sodium Level 137 mmol/L (136-145) Potassium Level 5.2 mmol/L (3.5-5.1) Chloride Level 104 mmol/L (98-107) Carbon Dioxide Level 20 mmol/L (21-32) Anion Gap 13 (6-14) Blood Urea Nitrogen 45 mg/dL (8-26) Creatinine 2.4 mg/dL (0.7-1.3) Estimated GFR (Cockcroft-Gault) 26.5 Glucose Level 97 mg/dL (70-99) Lactic Acid Level 4.9 mmol/L (0.4-2.0) Calcium Level 7.4 mg/dL (8.5-10.1) Test 04/04/17 00:05 04/04/17 03:30 04/04/17 09:00 04/04/17 09:14 Hemoglobin 7.4 g/dL (13.0-17.5) 7.5 g/dL (13.0-17.5) Hematocrit 23.7 % (39.0-53.0) 23.5 % (39.0-53.0) Mean Corpuscular Hemoglobin Concent 31 g/dL (31-37) 32 g/dL (31-37) Prothrombin Time 18.7 SEC (11.7-14.0) Prothromb Time International Ratio 1.7 (0.8-1.1) Sodium Level 139 mmol/L (136-145) Potassium Level 4.7 mmol/L (3.5-5.1) Chloride Level 108 mmol/L (98-107) Carbon Dioxide Level 19 mmol/L (21-32) Anion Gap 12 (6-14) Blood Urea Nitrogen 43 mg/dL (8-26) Creatinine 2.4 mg/dL (0.7-1.3) Estimated GFR (Cockcroft-Gault) 26.5 Glucose Level 107 mg/dL (70-99) Lactic Acid Level 3.7 mmol/L (0.4-2.0) Calcium Level 7.0 mg/dL (8.5-10.1) Phosphorus Level 4.9 mg/dL (2.6-4.7) Magnesium Level 1.9 mg/dL (1.8-2.4) Total Bilirubin 0.8 mg/dL (0.2-1.0) Direct Bilirubin 0.3 mg/dL (0.0-0.2) Aspartate Amino Transf (AST/SGOT) 41 U/L (15-37) Alanine Aminotransferase (ALT/SGPT) 29 U/L (16-63) Alkaline Phosphatase 63 U/L (46-116) Total Protein 5.5 g/dL (6.4-8.2) Albumin 2.0 g/dL (3.4-5.0) White Blood Count 53.2 x10^3/uL (4.0-11.0) Platelet Count 203 x10^3/uL (140-400) O2 Saturation 98 % (92-99) Arterial Blood pH 7.34 (7.35-7.45) Arterial Blood pCO2 at Patient Temp 32 mmHg (35-46) Arterial Blood pO2 at Patient Temp 137 mmHg (65-108) Arterial Blood HCO3 17 mmol/L (21-28) Arterial Blood Base Excess -8 mmol/L (-3-3) FiO2 100 Assessment and Plan Assessmemt and Plan Problems Medical Problems: (1) Anticoagulated Status: Acute (2) Retroperitoneal bleed Status: Acute Problems: Comment Review of Relevant I have reviewed the following items sarbjit (where applicable) has been applied. Labs Laboratory Tests Test 04/03/17 04:00 04/03/17 12:00 04/03/17 17:45 04/03/17 19:00 White Blood Count 19.4 x10^3/uL (4.0-11.0) Red Blood Count 3.64 x10^6/uL (4.30-5.70) Hemoglobin 10.4 g/dL (13.0-17.5) 8.4 g/dL (13.0-17.5) 8.5 g/dL (13.0-17.5) Hematocrit 31.9 % (39.0-53.0) 26.3 % (39.0-53.0) 26.1 % (39.0-53.0) Mean Corpuscular Volume 87 fL (79-100) Mean Corpuscular Hemoglobin 29 pg (25-35) Mean Corpuscular Hemoglobin Concent 33 g/dL (31-37) 32 g/dL (31-37) 33 g/dL (31-37) Red Cell Distribution Width 16.0 % (11.5-14.5) Platelet Count 265 x10^3/uL (140-400) Neutrophils (%) (Auto) 52 % (31-73) Lymphocytes (%) (Auto) 38 % (24-48) Monocytes (%) (Auto) 9 % (0-9) Eosinophils (%) (Auto) 1 % (0-3) Basophils (%) (Auto) 0 % (0-3) Neutrophils # (Auto) 10.1 x10^3uL (1.8-7.7) Lymphocytes # (Auto) 7.3 x10^3/uL (1.0-4.8) Monocytes # (Auto) 1.8 x10^3/uL (0.0-1.1) Eosinophils # (Auto) 0.1 x10^3/uL (0.0-0.7) Basophils # (Auto) 0.0 x10^3/uL (0.0-0.2) Prothrombin Time 23.4 SEC (11.7-14.0) 17.1 SEC (11.7-14.0) Prothromb Time International Ratio 2.2 (0.8-1.1) 1.5 (0.8-1.1) O2 Saturation 85 % (92-99) 86 % (92-99) Arterial Blood pH 7.19 (7.35-7.45) 7.22 (7.35-7.45) Arterial Blood pCO2 at Patient Temp 48 mmHg (35-46) 47 mmHg (35-46) Arterial Blood pO2 at Patient Temp 63 mmHg (65-108) 61 mmHg (65-108) Arterial Blood HCO3 18 mmol/L (21-28) 19 mmol/L (21-28) Arterial Blood Base Excess -10 mmol/L (-3-3) -8 mmol/L (-3-3) Oxyhemoglobin 84.3 % Methemoglobin 0.7 % (0.0-1.9) Carbon Monoxide, Quantitative 0.3 % (0.0-1.9) FiO2 100 100 Test 04/03/17 22:10 04/04/17 00:05 04/04/17 03:30 04/04/17 09:00 Sodium Level 137 mmol/L (136-145) 139 mmol/L (136-145) Potassium Level 5.2 mmol/L (3.5-5.1) 4.7 mmol/L (3.5-5.1) Chloride Level 104 mmol/L (98-107) 108 mmol/L (98-107) Carbon Dioxide Level 20 mmol/L (21-32) 19 mmol/L (21-32) Anion Gap 13 (6-14) 12 (6-14) Blood Urea Nitrogen 45 mg/dL (8-26) 43 mg/dL (8-26) Creatinine 2.4 mg/dL (0.7-1.3) 2.4 mg/dL (0.7-1.3) Estimated GFR (Cockcroft-Gault) 26.5 26.5 Glucose Level 97 mg/dL (70-99) 107 mg/dL (70-99) Lactic Acid Level 4.9 mmol/L (0.4-2.0) 3.7 mmol/L (0.4-2.0) Calcium Level 7.4 mg/dL (8.5-10.1) 7.0 mg/dL (8.5-10.1) Hemoglobin 7.4 g/dL (13.0-17.5) 7.5 g/dL (13.0-17.5) Hematocrit 23.7 % (39.0-53.0) 23.5 % (39.0-53.0) Mean Corpuscular Hemoglobin Concent 31 g/dL (31-37) 32 g/dL (31-37) Prothrombin Time 18.7 SEC (11.7-14.0) Prothromb Time International Ratio 1.7 (0.8-1.1) Phosphorus Level 4.9 mg/dL (2.6-4.7) Magnesium Level 1.9 mg/dL (1.8-2.4) Total Bilirubin 0.8 mg/dL (0.2-1.0) Direct Bilirubin 0.3 mg/dL (0.0-0.2) Aspartate Amino Transf (AST/SGOT) 41 U/L (15-37) Alanine Aminotransferase (ALT/SGPT) 29 U/L (16-63) Alkaline Phosphatase 63 U/L (46-116) Total Protein 5.5 g/dL (6.4-8.2) Albumin 2.0 g/dL (3.4-5.0) White Blood Count 53.2 x10^3/uL (4.0-11.0) Platelet Count 203 x10^3/uL (140-400) Test 04/04/17 09:14 O2 Saturation 98 % (92-99) Arterial Blood pH 7.34 (7.35-7.45) Arterial Blood pCO2 at Patient Temp 32 mmHg (35-46) Arterial Blood pO2 at Patient Temp 137 mmHg (65-108) Arterial Blood HCO3 17 mmol/L (21-28) Arterial Blood Base Excess -8 mmol/L (-3-3) FiO2 100 Laboratory Tests Test 04/03/17 12:00 04/03/17 17:45 04/03/17 19:00 04/03/17 22:10 Hemoglobin 8.4 g/dL (13.0-17.5) 8.5 g/dL (13.0-17.5) Hematocrit 26.3 % (39.0-53.0) 26.1 % (39.0-53.0) Mean Corpuscular Hemoglobin Concent 32 g/dL (31-37) 33 g/dL (31-37) O2 Saturation 85 % (92-99) 86 % (92-99) Arterial Blood pH 7.19 (7.35-7.45) 7.22 (7.35-7.45) Arterial Blood pCO2 at Patient Temp 48 mmHg (35-46) 47 mmHg (35-46) Arterial Blood pO2 at Patient Temp 63 mmHg (65-108) 61 mmHg (65-108) Arterial Blood HCO3 18 mmol/L (21-28) 19 mmol/L (21-28) Arterial Blood Base Excess -10 mmol/L (-3-3) -8 mmol/L (-3-3) Oxyhemoglobin 84.3 % Methemoglobin 0.7 % (0.0-1.9) Carbon Monoxide, Quantitative 0.3 % (0.0-1.9) FiO2 100 100 Prothrombin Time 17.1 SEC (11.7-14.0) Prothromb Time International Ratio 1.5 (0.8-1.1) Sodium Level 137 mmol/L (136-145) Potassium Level 5.2 mmol/L (3.5-5.1) Chloride Level 104 mmol/L (98-107) Carbon Dioxide Level 20 mmol/L (21-32) Anion Gap 13 (6-14) Blood Urea Nitrogen 45 mg/dL (8-26) Creatinine 2.4 mg/dL (0.7-1.3) Estimated GFR (Cockcroft-Gault) 26.5 Glucose Level 97 mg/dL (70-99) Lactic Acid Level 4.9 mmol/L (0.4-2.0) Calcium Level 7.4 mg/dL (8.5-10.1) Test 04/04/17 00:05 04/04/17 03:30 04/04/17 09:00 04/04/17 09:14 Hemoglobin 7.4 g/dL (13.0-17.5) 7.5 g/dL (13.0-17.5) Hematocrit 23.7 % (39.0-53.0) 23.5 % (39.0-53.0) Mean Corpuscular Hemoglobin Concent 31 g/dL (31-37) 32 g/dL (31-37) Prothrombin Time 18.7 SEC (11.7-14.0) Prothromb Time International Ratio 1.7 (0.8-1.1) Sodium Level 139 mmol/L (136-145) Potassium Level 4.7 mmol/L (3.5-5.1) Chloride Level 108 mmol/L (98-107) Carbon Dioxide Level 19 mmol/L (21-32) Anion Gap 12 (6-14) Blood Urea Nitrogen 43 mg/dL (8-26) Creatinine 2.4 mg/dL (0.7-1.3) Estimated GFR (Cockcroft-Gault) 26.5 Glucose Level 107 mg/dL (70-99) Lactic Acid Level 3.7 mmol/L (0.4-2.0) Calcium Level 7.0 mg/dL (8.5-10.1) Phosphorus Level 4.9 mg/dL (2.6-4.7) Magnesium Level 1.9 mg/dL (1.8-2.4) Total Bilirubin 0.8 mg/dL (0.2-1.0) Direct Bilirubin 0.3 mg/dL (0.0-0.2) Aspartate Amino Transf (AST/SGOT) 41 U/L (15-37) Alanine Aminotransferase (ALT/SGPT) 29 U/L (16-63) Alkaline Phosphatase 63 U/L (46-116) Total Protein 5.5 g/dL (6.4-8.2) Albumin 2.0 g/dL (3.4-5.0) White Blood Count 53.2 x10^3/uL (4.0-11.0) Platelet Count 203 x10^3/uL (140-400) O2 Saturation 98 % (92-99) Arterial Blood pH 7.34 (7.35-7.45) Arterial Blood pCO2 at Patient Temp 32 mmHg (35-46) Arterial Blood pO2 at Patient Temp 137 mmHg (65-108) Arterial Blood HCO3 17 mmol/L (21-28) Arterial Blood Base Excess -8 mmol/L (-3-3) FiO2 100 Medications Current Medications Hydromorphone HCl (Dilaudid) 0.5 mg 1X ONCE IV Last administered on 04/02/17 03:31; Start 04/02/17 at 03:15; Stop 04/02/17 at 03:40; Status DC Ondansetron HCl (Zofran) 4 mg 1X ONCE IV Last administered on 04/02/17 03:31 ; Start 04/02/17 at 03:15; Stop 04/02/17 at 03:40; Status DC Sodium Chloride 1,000 ml @ 1,000 mls/hr 1X ONCE IV Last administered on 03:31; Start 04/02/17 at 03:15; Stop 04/02/17 at 04:14; Status DC Ondansetron HCl (Zofran) 4 mg PRN Q8HRS PRN IV NAUSEA/VOMITING Last administered on 04/02/17 16:23; Start 04/02/17 at 04:15; Stop 04/03/17 at 04:14 ; Status DC Fentanyl Citrate (Fentanyl 2ml Vial) 50 mcg PRN Q1HR PRN IV PAIN Last administered on 04/02/17 15:18; Start 04/02/17 at 04:15; Stop 04/03/17 at 04:14 ; Status DC Acetaminophen (Tylenol) 650 mg PRN Q4HRS PRN PO FEVER; Start 04/02/17 at 04:15 ; Stop 04/03/17 at 04:14; Status DC Phytonadione (Vitamin K) 2 mg 1X ONCE SQ Last administered on 04/02/17 15:25 ; Start 04/02/17 at 12:00; Stop 04/02/17 at 12:01; Status DC Hydromorphone HCl (Dilaudid) 1 mg PRN Q2HRS PRN IVP PAIN Last administered on 09:54; Start 04/02/17 at 16:15 Ondansetron HCl (Zofran) 4 mg PRN Q6HRS PRN IV NAUSEA/VOMITING; Start 04/03/17 at 08:30 Pantoprazole Sodium (Protonix) 40 mg DAILYAC PO ; Start 04/03/17 at 09:00 Albuterol Sulfate (Ventolin Hfa) 1 puff Q2HR PRN IH soa; Start 04/03/17 at 08: 30; Status UNV Amoxicillin/ Clavulanate Potassium (Augmentin 875/ 125mg) 1 tab BIDWMEALS PO Last administered on 04/03/17 18:12; Start 04/03/17 at 09:00; Stop 04/04/17 at 07:31; Status DC Nitroglycerin (Nitrostat) 0.4 mg PRN Q5MIN PRN SL cp; Start 04/03/17 at 08:30 Atorvastatin Calcium (Lipitor) 80 mg QHS PO Last administered on 04/03/17 21: 03; Start 04/03/17 at 21:00 Albuterol Sulfate (Ventolin Neb Soln) 2.5 mg PRN Q2HRS PRN NEB SHORTNESS OF BREATH Last administered on 04/04/17 08:44; Start 04/03/17 at 08:45 Sodium Chloride 1,000 ml @ 125 mls/hr Q8H IV Last administered on 04/04/17 05 :37; Start 04/03/17 at 09:00 Sodium Chloride 1,000 ml @ 1,000 mls/hr 1X ONCE IV Last administered on 09:00; Start 04/03/17 at 09:00; Stop 04/03/17 at 09:59; Status DC Norepinephrine Bitartrate 250 ml @ 0 mls/hr CONT PRN IV SEE I/O RECORD Last administered on 04/04/17 06:25; Start 04/03/17 at 11:00 Iohexol (Omnipaque 350 Mg/ml) 90 ml 1X ONCE IV Last administered on 04/03/17 12:27; Start 04/03/17 at 12:15; Stop 04/03/17 at 12:16; Status DC Iohexol (Omnipaque 300 Mg/ml) 50 ml STK-MED ONCE .ROUTE ; Start 04/03/17 at 13: 27; Stop 04/03/17 at 13:28; Status DC Iohexol (Omnipaque 300 Mg/ml) 100 ml STK-MED ONCE .ROUTE ; Start 04/03/17 at 13: 27; Stop 04/03/17 at 13:28; Status DC Lidocaine/Sodium Bicarbonate (Buffered Lidocaine 1%) 20 ml STK-MED ONCE IJ ; Start 04/03/17 at 13:27; Stop 04/03/17 at 13:28; Status DC Heparin Sodium/ Sodium Chloride 1,500 ml @ As Directed STK-MED ONCE .ROUTE ; Start 04/03/17 at 13:28; Stop 04/03/17 at 13:29; Status DC Gelatin (Gelfoam Size 12-7mm) 1 each STK-MED ONCE .ROUTE ; Start 04/03/17 at 13 :52; Stop 04/03/17 at 13:53; Status DC Fentanyl Citrate (Fentanyl 2ml Vial) 100 mcg STK-MED ONCE .ROUTE ; Start at 13:54; Stop 04/03/17 at 13:55; Status DC Midazolam HCl (Versed) 2 mg STK-MED ONCE .ROUTE ; Start 04/03/17 at 13:54; Stop 04/03/17 at 13:55; Status DC Rocuronium [place] (Zemuron) 50 mg STK-MED ONCE .ROUTE ; Start 04/03/17 at 14:30 ; Stop 04/03/17 at 14:31; Status DC Propofol 20 ml @ As Directed STK-MED ONCE IV ; Start 04/03/17 at 14:30; Stop at 14:31; Status DC Succinylcholine Chloride (Ane[place]ine) 200 mg STK-MED ONCE .ROUTE ; Start 04/03/17 at 14:32; Stop 04/03/17 at 14:33; Status DC Iohexol (Omnipaque 300 Mg/ml) 100 ml STK-MED ONCE .ROUTE ; Start 04/03/17 at 14: 53; Stop 04/03/17 at 14:54; Status DC Propofol 100 ml @ As Directed STK-MED ONCE IV ; Start 04/03/17 at 15:16; Stop 04/03/17 at 15:17; Status DC Heparin Sodium/ Sodium Chloride 1,000 unit 1X ONCE IART Last administered on 16:46; Start 04/03/17 at 15:30; Stop 04/03/17 at 15:31; Status DC Lidocaine/Sodium Bicarbonate (Buffered Lidocaine 1%) 20 ml 1X ONCE IJ Last administered on 04/03/17 16:46; Start 04/03/17 at 15:30; Stop 04/03/17 at 15:31 ; Status DC Midazolam HCl (Versed) 1 mg 1X ONCE IV Last administered on 04/03/17 16:55; Start 04/03/17 at 14:00; Stop 04/03/17 at 15:23; Status DC Fentanyl Citrate (Fentanyl 2ml Vial) 50 mcg 1X ONCE IV Last administered on 16:56; Start 04/03/17 at 14:00; Stop 04/03/17 at 15:23; Status DC Iohexol (Omnipaque 300 Mg/ml) 100 ml 1X ONCE IART Last administered on 16:45; Start 04/03/17 at 15:30; Stop 04/03/17 at 15:31; Status DC Ondansetron HCl (Zofran) 4 mg 1X ONCE IV Last administered on 04/03/17 16:48 ; Start 04/03/17 at 14:08; Stop 04/03/17 at 15:23; Status DC Gelatin (Gelfoam Size 12-7mm) 1 each STK-MED ONCE .ROUTE ; Start 04/03/17 at 15 :41; Stop 04/03/17 at 15:42; Status DC Nitroglycerin (Nitroglycerin) 200 mcg 1X ONCE IART Last administered on 16:47; Start 04/03/17 at 16:15; Stop 04/03/17 at 16:16; Status DC Chlorhexidine Gluconate (Peridex) 15 ml BID MM Last administered on 04/03/17 21:03; Start 04/03/17 at 21:00 Propofol 100 ml @ 0 mls/hr CONT PRN IV SEE I/O RECORD; Start 04/03/17 at 17:15 Sodium Bicarbonate 100 meq 1X ONCE IV Last administered on 04/03/17 18:12; Start 04/03/17 at 18:00; Stop 04/03/17 at 18:01; Status DC Sodium Bicarbonate 100 meq 1X ONCE IV Last administered on 04/03/17 21:04; Start 04/03/17 at 20:15; Stop 04/03/17 at 20:16; Status DC Phenylephrine HCl 20 mg/Sodium Chloride 252 ml @ 0 mls/hr CONT PRN IV SEE I/O RECORD; Start 04/03/17 at 21:45 Sodium Chloride 1,000 ml @ 1,000 mls/hr 1X ONCE IV Last administered on 22:08; Start 04/03/17 at 21:45; Stop 04/03/17 at 22:44; Status DC Midazolam HCl 100 ml @ 0 mls/hr CONT PRN IV SEE I/O RECORD Last administered on 04/03/17 22:09; Start 04/03/17 at 21:45 Vancomycin HCl (Vanco Per Pharmacy) 1 each PRN DAILY PRN MC SEE COMMENTS Last administered on 04/03/17 22:01; Start 04/03/17 at 22:00; Stop 04/04/17 at 07:29 ; Status DC Piperacillin Sod/ Tazobactam Sod (Zosyn Per Pharmacy) 1 each PRN DAILY PRN MC SEE COMMENTS; Start 04/03/17 at 22:00; Stop 04/04/17 at 07:29; Status DC Vancomycin HCl 2 gm/Sodium Chloride 500 ml @ 250 mls/hr 1X ONCE IV Last administered on 04/03/17 22:09; Start 04/03/17 at 22:00; Stop 04/03/17 at 23:59 ; Status DC Piperacillin Sod/ Tazobactam Sod 4.5 gm/Sodium Chloride 100 ml @ 200 mls/hr Q6HRS IV Last administered on 04/04/17 05:37; Start 04/04/17 at 00:00; Stop at 07:29; Status DC Vancomycin HCl 1.25 gm/Sodium Chloride 250 ml @ 167 mls/hr Q12H IV ; Start at 10:00; Stop 04/04/17 at 10:00; Status DC Vancomycin HCl 1 each 1X ONCE MC ; Start 04/05/17 at 09:30; Stop 04/05/17 at 09 :31; Status Cancel Sodium Chloride 1,000 ml @ 1,000 mls/hr 1X ONCE IV Last administered on 23:27; Start 04/03/17 at 23:30; Stop 04/04/17 at 00:29; Status DC Sodium Chloride 500 ml @ 500 mls/hr 1X ONCE IV Last administered on 00:28; Start 04/04/17 at 00:30; Stop 04/04/17 at 01:30; Status DC Vancomycin HCl 1.5 gm/Sodium Chloride 500 ml @ 250 mls/hr Q24H IV ; Start 04/04 at 22:00; Stop 04/04/17 at 22:00; Status DC Piperacillin Sod/ Tazobactam Sod 2.25 gm/Sodium Chloride 50 ml @ 100 mls/hr Q6HRS IV ; Start 04/04/17 at 12:00 Lidocaine/Sodium Bicarbonate (Buffered Lidocaine 1%) 3 ml 1X ONCE IJ ; Start at 09:15; Stop 04/04/17 at 09:16; Status DC Heparin Sodium/ Sodium Chloride 60 unit 1X ONCE IV ; Start 04/04/17 at 09:15; Stop 04/04/17 at 09:16; Status DC Heparin Sodium (Porcine) (Heparin Sodium) 10,000 unit STK-MED ONCE .ROUTE ; Start 04/04/17 at 09:17; Stop 04/04/17 at 09:18; Status DC Micafungin Sodium 100 mg/Dextrose 100 ml @ 100 mls/hr Q24H IV ; Start 04/04/17 at 09:45; Status UNV Active Scripts Active Reported Augmentin 875-125 Tablet (Amoxicillin/Potassium Clav) 1 Each Tablet 1 Tab PO BID Proair Hfa (Albuterol Sulfate) 8.5 Gm Hfa.aer.ad 9 Gm IH Proscar (Finasteride) 5 Mg Tablet 1 Tab PO DAILY NITROGLYCERIN SubLingual (Nitroglycerin) 0.4 Mg Tab.subl 1 Tab SL UD Coumadin (Warfarin Sodium) 3 Mg Tablet 1 Tab PO DAILY Proair Hfa Inhaler (Albuterol Sulfate) 8.5 Gm Hfa.aer.ad 1-2 Inh IH Q4-6 HRS PRN Lipitor (Atorvastatin Calcium) 80 Mg Tablet 80 Mg PO DAILY Vitals/I & O Vital Sign - Last 24 Hours 04/03/17 04/03/17 04/03/17 04/03/17 11:52 12:00 16:56 17:15 Resp 16 Pulse Ox 96 95 O2 Delivery Room Air Room Air Ventilator Mechanical Ventilator 04/03/17 04/03/17 04/03/17 04/03/17 17:15 17:25 17:30 17:45 Temp 97.0 97.0 Pulse 108 130 128 Resp 16 16 22 B/P (MAP) 111/61 (78) 138/71 (93) 115/69 (84) Pulse Ox 89 92 95 94 O2 Delivery Ventilator Ventilator Ventilator Ventilator 04/03/17 04/03/17 04/03/17 04/03/17 18:00 18:15 18:45 19:00 Pulse 122 120 118 118 Resp 22 24 24 B/P (MAP) 86/59 (68) 86/57 (67) 75/60 (65) 94/64 (74) Pulse Ox 94 93 94 93 O2 Delivery Ventilator Ventilator Ventilator Ventilator 04/03/17 04/03/17 04/03/17 04/03/17 19:15 19:29 19:30 19:45 Pulse 118 118 114 Resp 24 26 B/P (MAP) 93/59 (70) 86/57 (67) 76/44 (55) Pulse Ox 91 92 84 98 O2 Delivery Ventilator Ventilator Ventilator Ventilator 04/03/17 04/03/17 04/03/17 04/03/17 20:00 20:00 20:15 20:30 Temp 97.9 97.9 Pulse 110 110 110 Resp B/P (MAP) 76/55 (62) 99/55 (70) 81/62 (68) Pulse Ox 98 98 98 O2 Delivery Ventilator Mechanical Ventilator Ventilator Ventilator 04/03/17 04/03/17 04/03/17 04/03/17 20:45 21:00 21:15 21:30 Pulse 110 112 114 112 Resp B/P (MAP) 73/50 (58) 83/56 (65) 85/62 (70) 83/65 (71) Pulse Ox 98 98 98 98 O2 Delivery Ventilator Ventilator Ventilator Ventilator 04/03/17 04/03/17 04/03/17 04/03/17 21:45 22:00 22:10 22:15 Pulse 112 68 61 68 Resp B/P (MAP) 93/63 (73) 73/51 (58) 50/23 (32) 63/31 (42) Pulse Ox 100 98 98 98 O2 Delivery Ventilator Ventilator Ventilator Ventilator 04/03/17 04/03/17 04/03/17 04/03/17 22:30 22:45 23:00 23:12 Temp 97.8 97.8 97.8 97.8 Pulse 108 102 96 Resp B/P (MAP) 106/76 (86) 101/61 (74) 108/60 (76) Pulse Ox 98 100 100 100 O2 Delivery Ventilator Ventilator Ventilator Ventilator 04/03/17 04/03/17 04/03/17 04/04/17 23:30 23:45 23:59 00:00 Pulse 92 92 92 Resp B/P (MAP) 111/58 (75) 148/73 (98) 102/55 (71) Pulse Ox 100 100 100 O2 Delivery Ventilator Ventilator Mechanical Ventilator Ventilator 04/04/17 04/04/17 04/04/17 04/04/17 00:30 01:00 01:30 02:00 Temp 97.3 97.3 Pulse 90 90 92 Resp B/P (MAP) 114/67 (83) 111/65 (80) 100/61 (74) Pulse Ox 100 100 100 100 O2 Delivery Ventilator Ventilator Ventilator Ventilator 04/04/17 04/04/17 04/04/17 04/04/17 03:00 03:39 04:00 04:00 Pulse 95 90 Resp 26 26 B/P (MAP) 100/53 (69) 103/54 (70) Pulse Ox 100 100 100 O2 Delivery Ventilator Ventilator Mechanical Ventilator Ventilator 04/04/17 04/04/17 04/04/17 04/04/17 05:00 05:46 06:00 08:44 Temp 99.2 99.2 Pulse 90 88 Resp 26 26 B/P (MAP) 109/66 (80) 119/71 (87) Pulse Ox 100 100 100 100 O2 Delivery Ventilator Ventilator Ventilator Ventilator Intake and Output 04/03/17 04/03/17 04/04/17 15:00 23:00 07:00 Intake Total 180 ml 4700 ml Output Total 318 ml 144 ml Balance 180 ml -318 ml 4556 ml Nutrition Consultation Dietary Evaluation: Recommendations by RD: Increase Calorie Intake, Protein supplementation Comments: Rec. add boost breeze TID while on clear liquids (250 calories/9 grams protein per serving) Expected Outcomes/Goals: diet advancement diet tolerance Interpretation of weight loss: >10% in 6 months Malnutrition Findings: Food and Nutrition Intake (Mod: <75% est energy req 7days Reduced Public Speaking Coach Strength: N/A Reduced Public Speaking Coach Strength (Non-Sev: N/A Malnutrition related to morbid: No Weight Status: Appropriate Fluid Accumulation (N/A): N/A KENDRICK MARADIAGA MD Apr 04, 2017 09:37
[2017-04-04] MEDS ORDERED: VANCOMYCIN 1.25 GM in IV NORMAL SALINE 250ML 250 ML IV SCH (10:00)
[2017-04-04] MEDS: MICAFUNGIN 100 MG in IV DEXTROSE 5% 100 ML IV SCH (10:00)
--- NOTE | 2017-04-04 10:01 | PDOC ---
Provider Note Provider Note dictated WINSTON BURCH MD Apr 04, 2017 10:01
--- NOTE | 2017-04-04 10:05 | PDOC ---
Exam Elevator Constructor Elevator Constructor [employer]sen Design Assembler Design Assembler V Arnulfo Pre-Procedure Diagnosis Pre-Procedure Diagnosis 76 YO male ICU patient with RP bleed (s/p embolization), with respiratory failure (due to acute lung injury from aspiration), hypotension, and sepsis. Bedside CVC insertion has been requested. Post-Procedure Diagnosis Post-Procedure Diagnosis Same Procedure Performed Procedure Performed Bedside ICU sono guided CVC insertion Type of Anesthesia Type of Anesthesia Local Estimated Blood Loss EBL: Minimal Drain/Tubes Drains/Tubes Right IJ 7F 3L 20cm power injectable CVC Condition of Patient Condition of Patient No change. Sedated on vent. No apparent complication. Disposition Disposition STAT pCXR requested for CVC position. Full report to follow. DORIAN ESCAMILLA MD Apr 04, 2017 10:05
--- NOTE | 2017-04-04 10:26 | RAD ---
AP portable chest radiograph 04/04/2017 Clinical History: Central venous catheter placement. An AP portable erect digital radiograph of the chest was obtained. Comparison study is dated earlier the seen today at 0630 hours. The ET tube, NG tube and left-sided pacemaker are unchanged in position. A right internal jugular central venous catheter has been placed. The tip of this catheter extends to overlie the superior vena cava cava. The cardiac silhouette is normal in size. Atherosclerotic calcification of the thoracic aorta is seen. The thoracic aorta is mildly tortuous. There is a small right pleural effusion. Patchy right lower lobe atelectasis and/or infiltrate is seen. These findings have improved since the previous examination. No pneumothorax is seen. The osseous structures are unchanged. Impression: Interval placement of a right internal jugular central venous catheter. No pneumothorax is seen.
[2017-04-04 10:34] LABS: BASO % 0 % (0-3); EOS % 0 % (0-3); HEMATOCRIT 21.2 % (39.0-53.0); LYMPH # 12.4 x10^3/uL (1.0-4.8); LYMPH % 34 % (24-48); MEAN CORPUSCULAR HEMOGLOBIN 29 pg (25-35); MEAN CORPUSCULAR HGB CONC 33 g/dL (31-37); MEAN CORPUSCULAR VOLUME 88 fL (79-100); MONO % 5 % (0-9); NEUT % 61 % (31-73); PLATELET COUNT 190 x10^3/uL (140-400); RED BLOOD COUNT 2.39 x10^6/uL (4.30-5.70); RED CELL DISTRIBUTION WIDTH 15.6 % (11.5-14.5); WHITE BLOOD COUNT 36.5 x10^3/uL (4.0-11.0)
--- NOTE | 2017-04-04 10:34 | RAD ---
AP abdomen radiograph 04/04/2017 Clinical history: Abdominal distention. Two AP portable supine digital radiographs of the abdomen/pelvis were obtained. Comparison is made to the patient's CTA of the abdomen dated 04/03/2017. An NG tube has been placed. The tip of this tube overlies the antrum of the stomach. Embolization coils overlie the right lower quadrant of the abdomen. Air distention of both small and large bowel loops is seen which has improved since the previous examination. These findings could reflect an ileus. A tran catheter overlies the urinary bladder. The osseous structures are unchanged. Impression: Interval improvement in the air distention of both small and large bowel loops.
[2017-04-04 10:42] LABS: CALCIUM 6.7 mg/dL (8.5-10.1); CREATININE 2.5 mg/dL (0.7-1.3); GFR 25.2; HEMOGLOBIN 6.9 g/dL (13.0-17.5); POTASSIUM 4.6 mmol/L (3.5-5.1)
[2017-04-04 10:49] LABS: ALBUMIN 1.9 g/dL (3.4-5.0); ALBUMIN/GLOBULIN RATIO 0.6 (1.0-1.7); TOTAL BILIRUBIN 0.7 mg/dL (0.2-1.0)
--- NOTE | 2017-04-04 11:34 | CONS ---
DATE OF CONSULTATION: ATTENDING PHYSICIAN: Dr. Ratliff. REASON FOR CONSULTATION: Respiratory failure, shock and severe hypoxia. HISTORY OF PRESENT ILLNESS: The patient is known to me. He is a 76-year-old male who follows me in the office for asthma and obstructive sleep apnea. He also has been on chronic Coumadin for atrial fibrillation. He presented to the Emergency Room with acute flank pain in the right lower quadrant and hip pain. There was no recent falls. He had a large bruise on his left posterior leg, which he cannot recall how it occurred. His INR on admission was 3.7. His CT abdomen and pelvis was performed, which showed a right retroperitoneal bleed. The patient has history of diverticulosis and ongoing abdominal bloating. He has also lost about 40 pounds in the last 6 months according to Oncology note. He reportedly had multiple colonoscopies. He received 2 units of FFP and vitamin K and Interventional Radiology was consulted due to large retroperitoneal bleed and hypotension. The patient was seen by Dr. Connolly and he had urgent arteriogram with embolization of right iliolumbar artery. The patient received 1 unit of packed RBCs. However, during the procedure, he vomited significantly and aspirated. He was immediately intubated by anesthesia and he became hypotensive as well. His initial arterial blood gases were highly abnormal, at that time, consultation was called to me. His pH was 7.19, pCO2 of 48 and a pO2 of 63 on 100% oxygen. At that time, I had increased the PEEP to 8 and increased the respiratory rate from 18 to 24. Subsequent ABGs showed a pH of 7.22, pCO2 of 47, pO2 of 61 with a bicarbonate of 19. I had also given 2 amps of bicarbonate on 2 occasions. I had increased the PEEP to 10. His current ABG showed a pH of 7.34, pCO2 of 32 and a pO2 of 137 on assist control rate of 26, tidal volume of 600 and 100% FiO2. He has been hypotensive despite receiving fluid boluses up to 3.5 liters. He also has NG output. His renal function has worsened and now creatinine is 2.4 and his urine output has declined. He has been requiring 28 mcg of Levophed. His latest INR is 1.7. His BUN is 43 and a creatinine of 2.4. His hemoglobin is holding at 7.5 latest. His white cell count is now up to 53,000, most likely a leukemoid reaction. I have reviewed his latest chest x-ray post-intubation, it shows [id number] right pleural effusion. Otherwise, no obvious CHF. Endotracheal tube is in satisfactory position. PAST MEDICAL HISTORY: History of chronic atrial fibrillation; history of asthma; history of obstructive sleep apnea, on CPAP; history of hypertension; history of low back pain; BPH and hypothyroidism. PAST SURGICAL HISTORY: No recent surgeries. ALLERGIES: SULFA, AMIODARONE, BUDESONIDE, FLUTICASONE, LEVOFLOXACIN, MONTELUKAST AND SALMETEROL. REVIEW OF SYSTEMS: Unable to obtain as he is on the ventilator. SOCIAL HISTORY: Lives with his . No recent tobacco use. MEDICATIONS: All reviewed as listed in the [facility] including broad-spectrum antibiotics Zosyn and vancomycin. PHYSICAL EXAMINATION: GENERAL: He is intubated, he is sedated with Versed. VITAL SIGNS: Blood pressure 119 systolic. T-max of 99.2, pulse ox is 97%. HEENT: Sclerae nonicteric. NECK: Supple. LUNGS: With diminished breath sounds. No crackles, no wheezes. CARDIOVASCULAR: With a regular rate. ABDOMEN: Distended. EXTREMITIES: With trace pitting edema. LABORATORY DATA: Reviewed. Latest white cell count is 53,000, hemoglobin 7.5 and platelets are 203. BUN is 43, creatinine of 2.4. Lactic acid was 4.9. ABGs are discussed in my history of present illness. Albumin is 2.0. IMPRESSION: 1. Acute hypoxic respiratory failure, most likely related to acute lung injury/acute respiratory distress syndrome related to significant aspiration during the procedure. 2. Acute hemorrhagic shock resulting from retroperitoneal bleed while the patient has been on Coumadin with INR of 3.7 on admission that may have been precipitated by a fall. 3. History of asthma. 4. History of chronic atrial fibrillation. 5. Acute kidney injury related to acute tubular necrosis from shock. 6. Markedly elevated white cell count today. This could be related to leukemoid reaction versus septic shock. 7. Severe hypotension, combination of hemorrhagic hypovolemic and septic shock. 8. Severe protein-calorie malnutrition. 9. Lactic acidosis secondary to hypoperfusion from shock. RECOMMENDATIONS: 1. Continue with present assist control mode. We will gradually wean FiO2 and PEEP depending on the clinical improvement. Anticipate mechanical ventilation needs for at least 3-5 days. 2. Broad-spectrum antibiotics. 3. Follow white cell count. 4. Follow blood cultures. 5. We will give extra fluid resuscitation. 6. Packed RBC transfusion. 7. Follow serial hemoglobin. 8. Closely watch renal function. May need dialysis. 9. Bronchodilators. 10. Vitamin K and FFP as needed. 11. Discuss with Dr. Dumont, discuss with Dr. Connolly and discuss with RN and RT and we will discuss with family as well. Critical care time, 50 minutes. WINSTON BURCH MD DR: AMMY/oz JOB#: [id number] / [id number]
--- NOTE | 2017-04-04 11:47 | PDOC2 ---
CONSULT Date of Consult Date of Consult DATE: 04/04/17 TIME: 11:41 Reason for Consult Reason for Consult: MARTHA Referring Physician Referring Physician: AMANDA Identification/Chief Complaint Chief Complaint FLANK PAIN Source Source: Chart review History of Present Illness Reason for Visit: THIS IS A 76 YR OLD ADMITTED WITH RIGHT FLANK PAIN AND THEN NOTED TO HAVE A RETROPERITONEAL BLEED. UNDERWENT EMBOLIZATION OF HIS RIGHT ILIOLUMBAR ARTERY. SUSPECTED ASPIRATION AND THEN REQUIRED INTUBATION. HAS NEEDED BLOOD DUE TO BLOOD LOSS AND IS NOW HYPOTENSIVE IN THE ICU WITH MARTHA WITH A CR OF 2.4. HE DID HAVE SOME CONTRAST EXPOSURE. 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 Endocrine: Hypothyroidism (resolved and taken off replacement >1 yr ago) Dermatology: No pertinent hx Past Surgical History Past Surgical History: Pacemaker (dual chamber), Arthroscopy (right shoulder RTC repair and bilateral knee meniscus repair), Cataract Removal, Other ( cardiac ablation 2011; PCI/stent 2011; oral surgery) Family History Family History: Cancer Social History No ALCOHOL: none Drugs: None Lives: with Family Current Problem List Problem List Problems Medical Problems: (1) Anticoagulated Status: Acute (2) Retroperitoneal bleed Status: Acute Current Medications Current Medications Current Medications Hydromorphone HCl (Dilaudid) 0.5 mg 1X ONCE IV Last administered on 04/02/17 03:31; Start 04/02/17 at 03:15; Stop 04/02/17 at 03:40; Status DC Ondansetron HCl (Zofran) 4 mg 1X ONCE IV Last administered on 04/02/17 03:31 ; Start 04/02/17 at 03:15; Stop 04/02/17 at 03:40; Status DC Sodium Chloride 1,000 ml @ 1,000 mls/hr 1X ONCE IV Last administered on 03:31; Start 04/02/17 at 03:15; Stop 04/02/17 at 04:14; Status DC Ondansetron HCl (Zofran) 4 mg PRN Q8HRS PRN IV NAUSEA/VOMITING Last administered on 04/02/17 16:23; Start 04/02/17 at 04:15; Stop 04/03/17 at 04:14 ; Status DC Fentanyl Citrate (Fentanyl 2ml Vial) 50 mcg PRN Q1HR PRN IV PAIN Last administered on 04/02/17 15:18; Start 04/02/17 at 04:15; Stop 04/03/17 at 04:14 ; Status DC Acetaminophen (Tylenol) 650 mg PRN Q4HRS PRN PO FEVER; Start 04/02/17 at 04:15 ; Stop 04/03/17 at 04:14; Status DC Phytonadione (Vitamin K) 2 mg 1X ONCE SQ Last administered on 04/02/17 15:25 ; Start 04/02/17 at 12:00; Stop 04/02/17 at 12:01; Status DC Hydromorphone HCl (Dilaudid) 1 mg PRN Q2HRS PRN IVP PAIN Last administered on 09:54; Start 04/02/17 at 16:15 Ondansetron HCl (Zofran) 4 mg PRN Q6HRS PRN IV NAUSEA/VOMITING; Start 04/03/17 at 08:30 Pantoprazole Sodium (Protonix) 40 mg DAILYAC PO ; Start 04/03/17 at 09:00; Stop 04/04/17 at 11:21; Status DC Albuterol Sulfate (Ventolin Hfa) 1 puff Q2HR PRN IH soa; Start 04/03/17 at 08: 30; Status UNV Amoxicillin/ Clavulanate Potassium (Augmentin 875/ 125mg) 1 tab BIDWMEALS PO Last administered on 04/03/17 18:12; Start 04/03/17 at 09:00; Stop 04/04/17 at 07:31; Status DC Nitroglycerin (Nitrostat) 0.4 mg PRN Q5MIN PRN SL cp; Start 04/03/17 at 08:30 Atorvastatin Calcium (Lipitor) 80 mg QHS PO Last administered on 04/03/17 21: 03; Start 04/03/17 at 21:00 Albuterol Sulfate (Ventolin Neb Soln) 2.5 mg PRN Q2HRS PRN NEB SHORTNESS OF BREATH Last administered on 04/04/17 08:44; Start 04/03/17 at 08:45 Sodium Chloride 1,000 ml @ 125 mls/hr Q8H IV Last administered on 04/04/17 05 :37; Start 04/03/17 at 09:00 Sodium Chloride 1,000 ml @ 1,000 mls/hr 1X ONCE IV Last administered on 09:00; Start 04/03/17 at 09:00; Stop 04/03/17 at 09:59; Status DC Norepinephrine Bitartrate 250 ml @ 0 mls/hr CONT PRN IV SEE I/O RECORD Last administered on 04/04/17 06:25; Start 04/03/17 at 11:00 Iohexol (Omnipaque 350 Mg/ml) 90 ml 1X ONCE IV Last administered on 04/03/17 12:27; Start 04/03/17 at 12:15; Stop 04/03/17 at 12:16; Status DC Iohexol (Omnipaque 300 Mg/ml) 50 ml STK-MED ONCE .ROUTE ; Start 04/03/17 at 13: 27; Stop 04/03/17 at 13:28; Status DC Iohexol (Omnipaque 300 Mg/ml) 100 ml STK-MED ONCE .ROUTE ; Start 04/03/17 at 13: 27; Stop 04/03/17 at 13:28; Status DC Lidocaine/Sodium Bicarbonate (Buffered Lidocaine 1%) 20 ml STK-MED ONCE IJ ; Start 04/03/17 at 13:27; Stop 04/03/17 at 13:28; Status DC Heparin Sodium/ Sodium Chloride 1,500 ml @ As Directed STK-MED ONCE .ROUTE ; Start 04/03/17 at 13:28; Stop 04/03/17 at 13:29; Status DC Gelatin (Gelfoam Size 12-7mm) 1 each STK-MED ONCE .ROUTE ; Start 04/03/17 at 13 :52; Stop 04/03/17 at 13:53; Status DC Fentanyl Citrate (Fentanyl 2ml Vial) 100 mcg STK-MED ONCE .ROUTE ; Start at 13:54; Stop 04/03/17 at 13:55; Status DC Midazolam HCl (Versed) 2 mg STK-MED ONCE .ROUTE ; Start 04/03/17 at 13:54; Stop 04/03/17 at 13:55; Status DC Rocuronium [place] (Zemuron) 50 mg STK-MED ONCE .ROUTE ; Start 04/03/17 at 14:30 ; Stop 04/03/17 at 14:31; Status DC Propofol 20 ml @ As Directed STK-MED ONCE IV ; Start 04/03/17 at 14:30; Stop at 14:31; Status DC Succinylcholine Chloride ([place]) 200 mg STK-MED ONCE .ROUTE ; Start 04/03/17 at 14:32; Stop 04/03/17 at 14:33; Status DC Iohexol (Omnipaque 300 Mg/ml) 100 ml STK-MED ONCE .ROUTE ; Start 04/03/17 at 14: 53; Stop 04/03/17 at 14:54; Status DC Propofol 100 ml @ As Directed STK-MED ONCE IV ; Start 04/03/17 at 15:16; Stop 04/03/17 at 15:17; Status DC Heparin Sodium/ Sodium Chloride 1,000 unit 1X ONCE IART Last administered on 16:46; Start 04/03/17 at 15:30; Stop 04/03/17 at 15:31; Status DC Lidocaine/Sodium Bicarbonate (Buffered Lidocaine 1%) 20 ml 1X ONCE IJ Last administered on 04/03/17 16:46; Start 04/03/17 at 15:30; Stop 04/03/17 at 15:31 ; Status DC Midazolam HCl (Versed) 1 mg 1X ONCE IV Last administered on 04/03/17 16:55; Start 04/03/17 at 14:00; Stop 04/03/17 at 15:23; Status DC Fentanyl Citrate (Fentanyl 2ml Vial) 50 mcg 1X ONCE IV Last administered on 16:56; Start 04/03/17 at 14:00; Stop 04/03/17 at 15:23; Status DC Iohexol (Omnipaque 300 Mg/ml) 100 ml 1X ONCE IART Last administered on 16:45; Start 04/03/17 at 15:30; Stop 04/03/17 at 15:31; Status DC Ondansetron HCl (Zofran) 4 mg 1X ONCE IV Last administered on 04/03/17 16:48 ; Start 04/03/17 at 14:08; Stop 04/03/17 at 15:23; Status DC Gelatin (Gelfoam Size 12-7mm) 1 each STK-MED ONCE .ROUTE ; Start 04/03/17 at 15 :41; Stop 04/03/17 at 15:42; Status DC Nitroglycerin (Nitroglycerin) 200 mcg 1X ONCE IART Last administered on 16:47; Start 04/03/17 at 16:15; Stop 04/03/17 at 16:16; Status DC Chlorhexidine Gluconate (Peridex) 15 ml BID MM Last administered on 04/03/17 21:03; Start 04/03/17 at 21:00 Propofol 100 ml @ 0 mls/hr CONT PRN IV SEE I/O RECORD; Start 04/03/17 at 17:15 Sodium Bicarbonate 100 meq 1X ONCE IV Last administered on 04/03/17 18:12; Start 04/03/17 at 18:00; Stop 04/03/17 at 18:01; Status DC Sodium Bicarbonate 100 meq 1X ONCE IV Last administered on 04/03/17 21:04; Start 04/03/17 at 20:15; Stop 04/03/17 at 20:16; Status DC Phenylephrine HCl 20 mg/Sodium Chloride 252 ml @ 0 mls/hr CONT PRN IV SEE I/O RECORD; Start 04/03/17 at 21:45 Sodium Chloride 1,000 ml @ 1,000 mls/hr 1X ONCE IV Last administered on 22:08; Start 04/03/17 at 21:45; Stop 04/03/17 at 22:44; Status DC Midazolam HCl 100 ml @ 0 mls/hr CONT PRN IV SEE I/O RECORD Last administered on 04/03/17 22:09; Start 04/03/17 at 21:45 Vancomycin HCl (Vanco Per Pharmacy) 1 each PRN DAILY PRN MC SEE COMMENTS Last administered on 04/03/17 22:01; Start 04/03/17 at 22:00; Stop 04/04/17 at 07:29 ; Status DC Piperacillin Sod/ Tazobactam Sod (Zosyn Per Pharmacy) 1 each PRN DAILY PRN MC SEE COMMENTS; Start 04/03/17 at 22:00; Stop 04/04/17 at 07:29; Status DC Vancomycin HCl 2 gm/Sodium Chloride 500 ml @ 250 mls/hr 1X ONCE IV Last administered on 04/03/17 22:09; Start 04/03/17 at 22:00; Stop 04/03/17 at 23:59 ; Status DC Piperacillin Sod/ Tazobactam Sod 4.5 gm/Sodium Chloride 100 ml @ 200 mls/hr Q6HRS IV Last administered on 04/04/17 05:37; Start 04/04/17 at 00:00; Stop at 07:29; Status DC Vancomycin HCl 1.25 gm/Sodium Chloride 250 ml @ 167 mls/hr Q12H IV ; Start at 10:00; Stop 04/04/17 at 10:00; Status DC Vancomycin HCl 1 each 1X ONCE MC ; Start 04/05/17 at 09:30; Stop 04/05/17 at 09 :31; Status Cancel Sodium Chloride 1,000 ml @ 1,000 mls/hr 1X ONCE IV Last administered on 23:27; Start 04/03/17 at 23:30; Stop 04/04/17 at 00:29; Status DC Sodium Chloride 500 ml @ 500 mls/hr 1X ONCE IV Last administered on 00:28; Start 04/04/17 at 00:30; Stop 04/04/17 at 01:30; Status DC Vancomycin HCl 1.5 gm/Sodium Chloride 500 ml @ 250 mls/hr Q24H IV ; Start 04/04 at 22:00; Stop 04/04/17 at 22:00; Status DC Piperacillin Sod/ Tazobactam Sod 2.25 gm/Sodium Chloride 50 ml @ 100 mls/hr Q6HRS IV ; Start 04/04/17 at 12:00 Lidocaine/Sodium Bicarbonate (Buffered Lidocaine 1%) 3 ml 1X ONCE IJ Last administered on 04/04/17 09:15; Start 04/04/17 at 09:15; Stop 04/04/17 at 09:16 ; Status DC Heparin Sodium/ Sodium Chloride 60 unit 1X ONCE IV Last administered on 6/16/ 17at 09:51; Start 04/04/17 at 09:15; Stop 04/04/17 at 09:16; Status DC Heparin Sodium (Porcine) (Heparin Sodium) 10,000 unit STK-MED ONCE .ROUTE ; Start 04/04/17 at 09:17; Stop 04/04/17 at 09:18; Status DC Micafungin Sodium 100 mg/Dextrose 100 ml @ 100 mls/hr Q24H IV Last administered on 04/04/17t 10:00; Start 04/04/17 at 10:00 Pantoprazole Sodium (Protonix Vial) 40 mg DAILYAC IVP ; Start 04/04/17 at 11:30 Lidocaine/Sodium Bicarbonate (Buffered Lidocaine 1%) 3 ml 1X ONCE IJ ; Start at 11:30; Stop 04/04/17 at 11:31; Status DC Heparin Sodium/ Sodium Chloride 60 unit 1X ONCE IV ; Start 04/04/17 at 11:30; Stop 04/04/17 at 11:31; Status DC Heparin Sodium (Porcine) (Heparin Sodium) 2,500 unit 1X ONCE INT CAT ; Start at 11:30; Stop 04/04/17 at 11:31; Status DC Heparin Sodium (Porcine) (Heparin Sodium) 10,000 unit STK-MED ONCE .ROUTE ; Start 04/04/17 at 11:33; Stop 04/04/17 at 11:34; Status DC Active Scripts Active Reported Augmentin 875-125 Tablet (Amoxicillin/Potassium Clav) 1 Each Tablet 1 Tab PO BID Proair Hfa (Albuterol Sulfate) 8.5 Gm Hfa.aer.ad 9 Gm IH Proscar (Finasteride) 5 Mg Tablet 1 Tab PO DAILY NITROGLYCERIN SubLingual (Nitroglycerin) 0.4 Mg Tab.subl 1 Tab SL UD Coumadin (Warfarin Sodium) 3 Mg Tablet 1 Tab PO DAILY Proair Hfa Inhaler (Albuterol Sulfate) 8.5 Gm Hfa.aer.ad 1-2 Inh IH Q4-6 HRS PRN Lipitor (Atorvastatin Calcium) 80 Mg Tablet 80 Mg PO DAILY Allergies Allergies: Coded Allergies: levofloxacin (Verified Allergy, Severe, RUPTURE OF ACHILLES TENDON, 03/22/14 ) amiodarone (Verified Allergy, Intermediate, 01/04/17) fluticasone (Verified Allergy, Intermediate, MAKES SORES, 03/22/14) montelukast (Verified Allergy, Intermediate, EAR PAIN, 01/04/17) salmeterol (Verified Allergy, Intermediate, MAKES SORES, 03/22/14) Sulfa (Sulfonamide Antibiotics) (Verified Allergy, Mild, "MAKES SORES", 03/22/14) budesonide (Verified Allergy, Mild, RASH, 03/22/14) ROS Review of System UNABLE TO OBTAIN Physical Exam General: No acute distress, Other (SEDATED) HEENT: Atraumatic Lungs: Clear to auscultation Heart: Regular rate Abdomen: Normal bowel sounds, Soft Extremities: No edema Neuro: Other (SEDATE) Psych/Mental Status: Other (SEDATE) MUSCULOSKELETAL: No swelling Vitals VITALS Vital Signs Date Time Temp Pulse Resp B/P (MAP) Pulse Ox O2 Delivery O2 Flow Rate FiO2 04/04/17 08:44 100 Ventilator 04/04/17 06:00 88 26 119/71 (87) 04/04/17 05:00 99.2 99.2 Labs Labs Laboratory Tests Test 04/03/17 04:00 04/03/17 12:00 04/03/17 17:45 04/03/17 19:00 White Blood Count 19.4 x10^3/uL (4.0-11.0) Red Blood Count 3.64 x10^6/uL (4.30-5.70) Hemoglobin 10.4 g/dL (13.0-17.5) 8.4 g/dL (13.0-17.5) 8.5 g/dL (13.0-17.5) Hematocrit 31.9 % (39.0-53.0) 26.3 % (39.0-53.0) 26.1 % (39.0-53.0) Mean Corpuscular Volume 87 fL (79-100) Mean Corpuscular Hemoglobin 29 pg (25-35) Mean Corpuscular Hemoglobin Concent 33 g/dL (31-37) 32 g/dL (31-37) 33 g/dL (31-37) Red Cell Distribution Width 16.0 % (11.5-14.5) Platelet Count 265 x10^3/uL (140-400) Neutrophils (%) (Auto) 52 % (31-73) Lymphocytes (%) (Auto) 38 % (24-48) Monocytes (%) (Auto) 9 % (0-9) Eosinophils (%) (Auto) 1 % (0-3) Basophils (%) (Auto) 0 % (0-3) Neutrophils # (Auto) 10.1 x10^3uL (1.8-7.7) Lymphocytes # (Auto) 7.3 x10^3/uL (1.0-4.8) Monocytes # (Auto) 1.8 x10^3/uL (0.0-1.1) Eosinophils # (Auto) 0.1 x10^3/uL (0.0-0.7) Basophils # (Auto) 0.0 x10^3/uL (0.0-0.2) Prothrombin Time 23.4 SEC (11.7-14.0) 17.1 SEC (11.7-14.0) Prothromb Time International Ratio 2.2 (0.8-1.1) 1.5 (0.8-1.1) O2 Saturation 85 % (92-99) 86 % (92-99) Arterial Blood pH 7.19 (7.35-7.45) 7.22 (7.35-7.45) Arterial Blood pCO2 at Patient Temp 48 mmHg (35-46) 47 mmHg (35-46) Arterial Blood pO2 at Patient Temp 63 mmHg (65-108) 61 mmHg (65-108) Arterial Blood HCO3 18 mmol/L (21-28) 19 mmol/L (21-28) Arterial Blood Base Excess -10 mmol/L (-3-3) -8 mmol/L (-3-3) Oxyhemoglobin 84.3 % Methemoglobin 0.7 % (0.0-1.9) Carbon Monoxide, Quantitative 0.3 % (0.0-1.9) FiO2 100 100 Test 04/03/17 22:10 04/04/17 00:05 04/04/17 03:30 04/04/17 09:00 Sodium Level 137 mmol/L (136-145) 139 mmol/L (136-145) Potassium Level 5.2 mmol/L (3.5-5.1) 4.7 mmol/L (3.5-5.1) Chloride Level 104 mmol/L (98-107) 108 mmol/L (98-107) Carbon Dioxide Level 20 mmol/L (21-32) 19 mmol/L (21-32) Anion Gap 13 (6-14) 12 (6-14) Blood Urea Nitrogen 45 mg/dL (8-26) 43 mg/dL (8-26) Creatinine 2.4 mg/dL (0.7-1.3) 2.4 mg/dL (0.7-1.3) Estimated GFR (Cockcroft-Gault) 26.5 26.5 Glucose Level 97 mg/dL (70-99) 107 mg/dL (70-99) Lactic Acid Level 4.9 mmol/L (0.4-2.0) 3.7 mmol/L (0.4-2.0) Calcium Level 7.4 mg/dL (8.5-10.1) 7.0 mg/dL (8.5-10.1) Hemoglobin 7.4 g/dL (13.0-17.5) 7.5 g/dL (13.0-17.5) Hematocrit 23.7 % (39.0-53.0) 23.5 % (39.0-53.0) Mean Corpuscular Hemoglobin Concent 31 g/dL (31-37) 32 g/dL (31-37) Prothrombin Time 18.7 SEC (11.7-14.0) Prothromb Time International Ratio 1.7 (0.8-1.1) Phosphorus Level 4.9 mg/dL (2.6-4.7) Magnesium Level 1.9 mg/dL (1.8-2.4) Total Bilirubin 0.8 mg/dL (0.2-1.0) Direct Bilirubin 0.3 mg/dL (0.0-0.2) Aspartate Amino Transf (AST/SGOT) 41 U/L (15-37) Alanine Aminotransferase (ALT/SGPT) 29 U/L (16-63) Alkaline Phosphatase 63 U/L (46-116) Total Protein 5.5 g/dL (6.4-8.2) Albumin 2.0 g/dL (3.4-5.0) White Blood Count 53.2 x10^3/uL (4.0-11.0) Platelet Count 203 x10^3/uL (140-400) Test 04/04/17 09:14 04/04/17 10:25 O2 Saturation 98 % (92-99) Arterial Blood pH 7.34 (7.35-7.45) Arterial Blood pCO2 at Patient Temp 32 mmHg (35-46) Arterial Blood pO2 at Patient Temp 137 mmHg (65-108) Arterial Blood HCO3 17 mmol/L (21-28) Arterial Blood Base Excess -8 mmol/L (-3-3) FiO2 100 White Blood Count 36.5 x10^3/uL (4.0-11.0) Red Blood Count 2.39 x10^6/uL (4.30-5.70) Hemoglobin 6.9 g/dL (13.0-17.5) Hematocrit 21.2 % (39.0-53.0) Mean Corpuscular Volume 88 fL (79-100) Mean Corpuscular Hemoglobin 29 pg (25-35) Mean Corpuscular Hemoglobin Concent 33 g/dL (31-37) Red Cell Distribution Width 15.6 % (11.5-14.5) Platelet Count 190 x10^3/uL (140-400) Neutrophils (%) (Auto) 61 % (31-73) Lymphocytes (%) (Auto) 34 % (24-48) Monocytes (%) (Auto) 5 % (0-9) Eosinophils (%) (Auto) 0 % (0-3) Basophils (%) (Auto) 0 % (0-3) Neutrophils # (Auto) 22.1 x10^3uL (1.8-7.7) Lymphocytes # (Auto) 12.4 x10^3/uL (1.0-4.8) Monocytes # (Auto) 1.9 x10^3/uL (0.0-1.1) Eosinophils # (Auto) 0.0 x10^3/uL (0.0-0.7) Basophils # (Auto) 0.0 x10^3/uL (0.0-0.2) Sodium Level 142 mmol/L (136-145) Potassium Level 4.6 mmol/L (3.5-5.1) Chloride Level 109 mmol/L (98-107) Carbon Dioxide Level 21 mmol/L (21-32) Anion Gap 12 (6-14) Blood Urea Nitrogen 48 mg/dL (8-26) Creatinine 2.5 mg/dL (0.7-1.3) Estimated GFR (Cockcroft-Gault) 25.2 BUN/Creatinine Ratio 19 (6-20) Glucose Level 116 mg/dL (70-99) Calcium Level 6.7 mg/dL (8.5-10.1) Total Bilirubin 0.7 mg/dL (0.2-1.0) Aspartate Amino Transf (AST/SGOT) 41 U/L (15-37) Alanine Aminotransferase (ALT/SGPT) 28 U/L (16-63) Alkaline Phosphatase 60 U/L (46-116) Total Protein 5.0 g/dL (6.4-8.2) Albumin 1.9 g/dL (3.4-5.0) Albumin/Globulin Ratio 0.6 (1.0-1.7) Laboratory Tests Test 04/03/17 12:00 04/03/17 17:45 04/03/17 19:00 04/03/17 22:10 Hemoglobin 8.4 g/dL (13.0-17.5) 8.5 g/dL (13.0-17.5) Hematocrit 26.3 % (39.0-53.0) 26.1 % (39.0-53.0) Mean Corpuscular Hemoglobin Concent 32 g/dL (31-37) 33 g/dL (31-37) O2 Saturation 85 % (92-99) 86 % (92-99) Arterial Blood pH 7.19 (7.35-7.45) 7.22 (7.35-7.45) Arterial Blood pCO2 at Patient Temp 48 mmHg (35-46) 47 mmHg (35-46) Arterial Blood pO2 at Patient Temp 63 mmHg (65-108) 61 mmHg (65-108) Arterial Blood HCO3 18 mmol/L (21-28) 19 mmol/L (21-28) Arterial Blood Base Excess -10 mmol/L (-3-3) -8 mmol/L (-3-3) Oxyhemoglobin 84.3 % Methemoglobin 0.7 % (0.0-1.9) Carbon Monoxide, Quantitative 0.3 % (0.0-1.9) FiO2 100 100 Prothrombin Time 17.1 SEC (11.7-14.0) Prothromb Time International Ratio 1.5 (0.8-1.1) Sodium Level 137 mmol/L (136-145) Potassium Level 5.2 mmol/L (3.5-5.1) Chloride Level 104 mmol/L (98-107) Carbon Dioxide Level 20 mmol/L (21-32) Anion Gap 13 (6-14) Blood Urea Nitrogen 45 mg/dL (8-26) Creatinine 2.4 mg/dL (0.7-1.3) Estimated GFR (Cockcroft-Gault) 26.5 Glucose Level 97 mg/dL (70-99) Lactic Acid Level 4.9 mmol/L (0.4-2.0) Calcium Level 7.4 mg/dL (8.5-10.1) Test 04/04/17 00:05 04/04/17 03:30 04/04/17 09:00 04/04/17 09:14 Hemoglobin 7.4 g/dL (13.0-17.5) 7.5 g/dL (13.0-17.5) Hematocrit 23.7 % (39.0-53.0) 23.5 % (39.0-53.0) Mean Corpuscular Hemoglobin Concent 31 g/dL (31-37) 32 g/dL (31-37) Prothrombin Time 18.7 SEC (11.7-14.0) Prothromb Time International Ratio 1.7 (0.8-1.1) Sodium Level 139 mmol/L (136-145) Potassium Level 4.7 mmol/L (3.5-5.1) Chloride Level 108 mmol/L (98-107) Carbon Dioxide Level 19 mmol/L (21-32) Anion Gap 12 (6-14) Blood Urea Nitrogen 43 mg/dL (8-26) Creatinine 2.4 mg/dL (0.7-1.3) Estimated GFR (Cockcroft-Gault) 26.5 Glucose Level 107 mg/dL (70-99) Lactic Acid Level 3.7 mmol/L (0.4-2.0) Calcium Level 7.0 mg/dL (8.5-10.1) Phosphorus Level 4.9 mg/dL (2.6-4.7) Magnesium Level 1.9 mg/dL (1.8-2.4) Total Bilirubin 0.8 mg/dL (0.2-1.0) Direct Bilirubin 0.3 mg/dL (0.0-0.2) Aspartate Amino Transf (AST/SGOT) 41 U/L (15-37) Alanine Aminotransferase (ALT/SGPT) 29 U/L (16-63) Alkaline Phosphatase 63 U/L (46-116) Total Protein 5.5 g/dL (6.4-8.2) Albumin 2.0 g/dL (3.4-5.0) White Blood Count 53.2 x10^3/uL (4.0-11.0) Platelet Count 203 x10^3/uL (140-400) O2 Saturation 98 % (92-99) Arterial Blood pH 7.34 (7.35-7.45) Arterial Blood pCO2 at Patient Temp 32 mmHg (35-46) Arterial Blood pO2 at Patient Temp 137 mmHg (65-108) Arterial Blood HCO3 17 mmol/L (21-28) Arterial Blood Base Excess -8 mmol/L (-3-3) FiO2 100 Test 04/04/17 10:25 White Blood Count 36.5 x10^3/uL (4.0-11.0) Red Blood Count 2.39 x10^6/uL (4.30-5.70) Hemoglobin 6.9 g/dL (13.0-17.5) Hematocrit 21.2 % (39.0-53.0) Mean Corpuscular Volume 88 fL (79-100) Mean Corpuscular Hemoglobin 29 pg (25-35) Mean Corpuscular Hemoglobin Concent 33 g/dL (31-37) Red Cell Distribution Width 15.6 % (11.5-14.5) Platelet Count 190 x10^3/uL (140-400) Neutrophils (%) (Auto) 61 % (31-73) Lymphocytes (%) (Auto) 34 % (24-48) Monocytes (%) (Auto) 5 % (0-9) Eosinophils (%) (Auto) 0 % (0-3) Basophils (%) (Auto) 0 % (0-3) Neutrophils # (Auto) 22.1 x10^3uL (1.8-7.7) Lymphocytes # (Auto) 12.4 x10^3/uL (1.0-4.8) Monocytes # (Auto) 1.9 x10^3/uL (0.0-1.1) Eosinophils # (Auto) 0.0 x10^3/uL (0.0-0.7) Basophils # (Auto) 0.0 x10^3/uL (0.0-0.2) Sodium Level 142 mmol/L (136-145) Potassium Level 4.6 mmol/L (3.5-5.1) Chloride Level 109 mmol/L (98-107) Carbon Dioxide Level 21 mmol/L (21-32) Anion Gap 12 (6-14) Blood Urea Nitrogen 48 mg/dL (8-26) Creatinine 2.5 mg/dL (0.7-1.3) Estimated GFR (Cockcroft-Gault) 25.2 BUN/Creatinine Ratio 19 (6-20) Glucose Level 116 mg/dL (70-99) Calcium Level 6.7 mg/dL (8.5-10.1) Total Bilirubin 0.7 mg/dL (0.2-1.0) Aspartate Amino Transf (AST/SGOT) 41 U/L (15-37) Alanine Aminotransferase (ALT/SGPT) 28 U/L (16-63) Alkaline Phosphatase 60 U/L (46-116) Total Protein 5.0 g/dL (6.4-8.2) Albumin 1.9 g/dL (3.4-5.0) Albumin/Globulin Ratio 0.6 (1.0-1.7) Assessment/Plan Assessment/Plan IMP RETROPERITONEAL BLEED COAGULOPATHY MARTHA WITH CR OF 2.4-ANURIA-NO CKD HYPOTENSION SHOCK FROM BLOOD LOSS S/P RIGHT ILEOLUMBAR ARTERY EMBOLIZATION LEUCOCYTOSIS PLAN VOLUME EXPAND PRBC NEEDED ARANESP TO STIMULATE ERYTHROPOIESIS WILL HAVE IR PLACE A TEMP HD CATHETER START HD TODAY FOR CLEARANCE - NO UF CORRECT COAGULOPATHY UPDATED FAMILY D/W IR AND PULM/CRITICAL CARE TIM HERRING MD Apr 04, 2017 11:47
--- NOTE | 2017-04-04 12:08 | PDOC ---
Exam House Mother House Mother Mohsen Engineer And Geologist Engineer And Geologist Denis RussoArnulfo Pre-Procedure Diagnosis Pre-Procedure Diagnosis 76 YO male ICU patient with MARTHA/ARF. Bedside temp HDC insertion requested by Renal. Post-Procedure Diagnosis Post-Procedure Diagnosis Same Procedure Performed Procedure Performed Bedside ICU sono guided temp HDC insertion Type of Anesthesia Type of Anesthesia Local Estimated Blood Loss EBL: Minimal Drain/Tubes Drains/Tubes Rt IJ 14F 20cm Schon Temp HDC Condition of Patient Condition of Patient No change. Sedated on Vent. No apparent complication. Disposition Disposition STAT pCXR requested for Temp HDC position. Full report to follow. DORIAN ESCAMILLA MD Apr 04, 2017 12:07
[2017-04-04] MEDS: CHLORHEXIDINE 0.12% 15 ML MOUTHWASH. MM SCH ×2 (12:13→21:06)
[2017-04-04] MEDS: PIPERACILLIN/TAZOBACTAM 2.25 GM in IV NORMAL SALINE 50ML 50 ML IV SCH ×2 (12:13→19:47)
[2017-04-04] MEDS: PANTOPRAZOLE IV PUSH 40 MG VIAL. IVP SCH (12:13)
--- NOTE | 2017-04-04 12:58 | RAD ---
AP portable chest radiograph 04/04/2017 Clinical History: Post hemodialysis catheter insertion. An AP portable erect digital radiograph of the chest was obtained. Comparison study is dated 04/04/2017. The ET tube, NG tube, left-sided pacemaker and right internal jugular central venous catheter are unchanged position. A large-bore right internal jugular central venous catheter has been placed. The tip of this catheter extends to overlie the SVC near its junction with the right atrium of the heart. The cardiac silhouette is normal in size. Atherosclerotic calcification of the thoracic aorta is seen. The thoracic aorta is tortuous. Patchy right lower lobe atelectasis and/or infiltrate with a small right pleural effusion is unchanged. No pneumothorax is noted. The osseous structures are unchanged. Impression: Interval placement of a right internal jugular large bore central venous catheter. The tip of this catheter extends to overlie the SVC/right atrial junction. No pneumothorax is seen.
[2017-04-04] MEDS ORDERED: PHYTONADIONE (VIT K1) 10 MG in IV NORMAL SALINE 50ML 50 ML IV ONE (13:00)
[2017-04-04] MEDS ORDERED: IV NORMAL SALINE 1000ML BAG 1,000 ML IV PRN (13:26)
[2017-04-04] MEDS ORDERED: diphenhydrAMINE 50 MG/ML VIAL IV PRN ×2 (13:30)
[2017-04-04] MEDS ORDERED: DIALYSIS PATIENT. MC PRN (13:30)
[2017-04-04] MEDS ORDERED: 0.9 % SODIUM CHLORIDE 10 ML DISP.SYRIN. IV PRN ×2 (13:30)
[2017-04-04 13:58] LABS: BILIRUBIN,URINE NEGATIVE (NEG); GLUCOSE,URINE NEGATIVE (NEG); NITRITE,URINE NEGATIVE (NEG); PROTEIN,URINE 30 mg/dL (NEG-TRACE); UROBILINOGEN,URINE 0.2 mg/dL (0.2 mg/dL)
[2017-04-04 14:11] LABS: HEMATOCRIT 22.6 % (39.0-53.0); HEMOGLOBIN 7.9 g/dL (13.0-17.5)
[2017-04-04 14:29] LABS: BACTERIA,URINE 0 /HPF (0-FEW); RBC,URINE 0 /HPF (0-2)
[2017-04-04 17:34] LABS: HCO3 ABG 14 mmol/L (21-28); PH ABG 7.51 (7.35-7.45); PO2 ABG 71 mmHg (65-108); SAT O2 ABG 94 % (92-99)
[2017-04-04 17:50] LABS: FIO2 ABG 90; PCO2 ABG 17 mmHg (35-46)
[2017-04-04 17:51] LABS: HEMATOCRIT 28.5 % (39.0-53.0); HEMOGLOBIN 9.6 g/dL (13.0-17.5)
--- NOTE | 2017-04-04 19:43 | CONS ---
DATE OF CONSULTATION: 04/04/2017 ROOM: ICU 8. REQUESTING PHYSICIAN: Dr. Ratliff. REASON FOR CONSULTATION: Positive sepsis screen. HISTORY OF PRESENT ILLNESS: The patient is a 76-year-old gentleman currently intubated, sedated, unable to provide any past medical history, history of present illness or review of systems. He is on chronic Coumadin at home for atrial fibrillation and presented with acute flank pain with acute right lower quadrant abdominal pain and hip pain. Denies any falls or trauma. INR was 3.7. CT scan was obtained and showed a possible right retroperitoneal bleed versus inflammation. He was evaluated by Dr. Connolly who took the patient to Interventional Radiology on the and underwent a superselective right iliac arteriogram and a transmicrocatheter Gelfoam slurry and microcoil embolization of a right iliolumbar artery on 04/03/2017. It was noted that there was some vomiting on the and subsequently was intubated. His hemoglobin on admission was 13.5, but had dropped down to as low of 7.4. He has received packed red blood cell a unit. However, he is requiring more oxygenation. He is now on 26 of Levophed, although this has come down somewhat and has been started on vancomycin and Zosyn. In discussions with the family, denies any falls or trauma. Additionally, he had been on Augmentin recently for an upper respiratory infection. PAST MEDICAL HISTORY: Positive for atrial fibrillation, COPD, BPH, diverticulosis, vertigo, obstructive sleep apnea, using CPAP as well as history of influenza B back in December. PAST SURGICAL HISTORY: Positive for the above-mentioned procedure. He has had bilateral knee surgeries as well as hand and left shoulder surgery. Additionally, he has a pacemaker and has undergone PCI. REVIEW OF SYSTEMS: Unobtainable. ALLERGIES: LISTED LEVOFLOXACIN CAUSING TENDON RUPTURE, SULFA CAUSES SORES ON THE OUTSIDE, AMIODARONE, BUDESONIDE, FLUDROCORTISONE, MONTELUKAST, AND SALMETROL ARE ALSO LISTED. SOCIAL HISTORY: He is , is here, family is with him. No tobacco, no alcohol. FAMILY HISTORY: Three brothers with cancer; one was pancreatic, two others were unknown. CURRENT MEDICATIONS: Included vancomycin, Zosyn, Levophed, albuterol, Atrovent, Lipitor, Peridex. Other meds are available, have been reviewed in the chart. PHYSICAL EXAMINATION: VITAL SIGNS: Temperature is 99.2, pulse 88, respirations 26, blood pressure 119/71, satting 100% on the ventilator. CONSTITUTIONAL: Intubated, sedated moderately. HEENT: Pupils equal and reactive. NECK: Supple, no JVD. LUNGS: Decreased in the bases. HEART: S1, S2. Pacemaker without signs of complications. ABDOMEN: Soft. Decreased bowel sounds. Zaldivar is in place. EXTREMITIES: Left groin area is clean without signs of any complications from procedure. His peripheral IVs are clean. SKIN: Mildly mottled on his knees. There is no generalized rash. Otherwise warm to touch. LABORATORY DATA: White count from the of 19.4, current hemoglobin 7.5, most recent platelets of 265, creatinine 2.4, glucose 107, most recent lactic acid of 3.7, down from 4.9. He had normal liver function study tests on the . INR today of 1.7. MRSA screen negative. Most recent chest x-ray is now read out, but appears to have questionable mild effusion on the right, but otherwise fairly clean. IMPRESSION: 1. Sepsis versus systemic inflammatory response syndrome, currently on26 of Levophed. 2. Retroperitoneal bleed status post above-mentioned arteriogram and microcoil and embolization. 3. Aspiration with vomiting on the . 4. Acute kidney injury. 5. Respiratory failure. 6. LEVOFLOXACIN ALLERGY causing tendon rupture and BACTRIM ALLERGY causes sores. 7. Atrial fibrillation. RECOMMENDATIONS: We will hold vancomycin with the acute kidney injury. We will adjust the Zosyn. May need an antifungal. PICC line has been ordered. Obtain a renal consult with his acute renal failure. Also obtain phos, mag, ionized calcium and UA. Cardiology consult pending. We will add LFTs, WBCs and platelets to his morning labs. Obtain labs in the morning. Blood cultures are pending. We will check sputum culture and may need repeat abdominal imaging. This was discussed with the family. He is critically ill. Thank you for allowing me to participate in this patient's care. If you have any questions, please do not hesitate to contact me. I spent 35 minutes in critical care time. CAM LEWIS MD DR: NEW/oz JOB#: [id number] / [id number]
[2017-04-04] MEDS ORDERED: DARBEPOETIN ALFA 60 MCG/0.3 ML DISP.SYRIN. SQ SCH (21:00)
[2017-04-04] MEDS: ATORVASTATIN CALCIUM 40 MG TABLET. PO SCH (21:06)
[2017-04-04] MEDS ORDERED: VANCOMYCIN 1.5 GM in IV NORMAL SALINE 500ML BAG 500 ML IV SCH (22:00)
[2017-04-05] VITALS (56 sets, daily range): BP systolic 81–142; BP diastolic 43–86
[2017-04-05] MEDS: PIPERACILLIN/TAZOBACTAM 2.25 GM in IV NORMAL SALINE 50ML 50 ML IV SCH ×4 (00:47→17:39)
[2017-04-05] MEDS: MIDAZOLAM PREMIX 100 ML IV PRN ×2 (05:10→23:06)
[2017-04-05] MEDS: NOREPINEPHRIN PREMIX 250 ML IV PRN ×2 (05:10→17:14)
[2017-04-05] MEDS: IV NORMAL SALINE 1000ML BAG 1,000 ML IV SCH ×4 (05:11→21:05)
[2017-04-05 05:44] LABS: BASO % 0 % (0-3); EOS % 0 % (0-3); HEMATOCRIT 24.1 % (39.0-53.0); HEMOGLOBIN 8.4 g/dL (13.0-17.5); LYMPH # 10.7 x10^3/uL (1.0-4.8); LYMPH % 39 % (24-48); MEAN CORPUSCULAR HEMOGLOBIN 30 pg (25-35); MEAN CORPUSCULAR HGB CONC 35 g/dL (31-37); MEAN CORPUSCULAR VOLUME 85 fL (79-100); MONO % 7 % (0-9); NEUT % 54 % (31-73); PLATELET COUNT 160 x10^3/uL (140-400); RED BLOOD COUNT 2.85 x10^6/uL (4.30-5.70); WHITE BLOOD COUNT 27.5 x10^3/uL (4.0-11.0)
[2017-04-05 05:53] LABS: INR 1.2 (0.8-1.1); PROTHROMBIN TIME PATIENT 14.9 SEC (11.7-14.0)
[2017-04-05 06:05] LABS: CALCIUM 7.1 mg/dL (8.5-10.1); CREATININE 1.9 mg/dL (0.7-1.3); GFR 34.6; POTASSIUM 3.9 mmol/L (3.5-5.1)
[2017-04-05 06:09] LABS: MAGNESIUM 1.7 mg/dL (1.8-2.4); PHOSPHORUS 4.2 mg/dL (2.6-4.7)
[2017-04-05] MEDS: ALBUTEROL SULFATE 2.5 MG/3 ML NEBU. NEB PRN ×3 (07:26→20:01)
[2017-04-05 07:29] LABS: HCO3 ABG 23 mmol/L (21-28); PCO2 ABG 37 mmHg (35-46); PH ABG 7.41 (7.35-7.45); PO2 ABG 139 mmHg (65-108); SAT O2 ABG 98 % (92-99)
[2017-04-05] MEDS: CHLORHEXIDINE 0.12% 15 ML MOUTHWASH. MM SCH ×2 (08:15→21:05)
[2017-04-05] MEDS: PANTOPRAZOLE IV PUSH 40 MG VIAL. IVP SCH (08:15)
--- NOTE | 2017-04-05 08:23 | PDOC ---
PULMONARY PROGRESS NOTES Subjective on vent, peep 9, fio2 80%, on levo, sedated. Vitals Vital Signs Date Time Temp Pulse Resp B/P (MAP) Pulse Ox O2 Delivery O2 Flow Rate FiO2 04/05/17 07:58 Mechanical Ventilator 04/05/17 07:30 97.8 69 27 111/54 (73) 100 97.8 Comments ros as mentioned as above discussed w rn, other sys otherwise neg HEENT: Other (nc at perrl, orally intubated, nose clear, neck, no lap, thyromegaly) Lungs: Crackles, Other Cardiovascular: S1, S2 Abdomen: Soft, Non-tender, Other (no mass) Extremities: No Edema Skin: Warm Labs Laboratory Tests Test 04/03/17 12:00 04/03/17 17:45 04/03/17 19:00 04/03/17 22:10 Hemoglobin 8.4 g/dL (13.0-17.5) 8.5 g/dL (13.0-17.5) Hematocrit 26.3 % (39.0-53.0) 26.1 % (39.0-53.0) Mean Corpuscular Hemoglobin Concent 32 g/dL (31-37) 33 g/dL (31-37) O2 Saturation 85 % (92-99) 86 % (92-99) Arterial Blood pH 7.19 (7.35-7.45) 7.22 (7.35-7.45) Arterial Blood pCO2 at Patient Temp 48 mmHg (35-46) 47 mmHg (35-46) Arterial Blood pO2 at Patient Temp 63 mmHg (65-108) 61 mmHg (65-108) Arterial Blood HCO3 18 mmol/L (21-28) 19 mmol/L (21-28) Arterial Blood Base Excess -10 mmol/L (-3-3) -8 mmol/L (-3-3) Oxyhemoglobin 84.3 % Methemoglobin 0.7 % (0.0-1.9) Carbon Monoxide, Quantitative 0.3 % (0.0-1.9) FiO2 100 100 Prothrombin Time 17.1 SEC (11.7-14.0) Prothromb Time International Ratio 1.5 (0.8-1.1) Sodium Level 137 mmol/L (136-145) Potassium Level 5.2 mmol/L (3.5-5.1) Chloride Level 104 mmol/L (98-107) Carbon Dioxide Level 20 mmol/L (21-32) Anion Gap 13 (6-14) Blood Urea Nitrogen 45 mg/dL (8-26) Creatinine 2.4 mg/dL (0.7-1.3) Estimated GFR (Cockcroft-Gault) 26.5 Glucose Level 97 mg/dL (70-99) Lactic Acid Level 4.9 mmol/L (0.4-2.0) Calcium Level 7.4 mg/dL (8.5-10.1) Test 04/04/17 00:05 04/04/17 03:30 04/04/17 09:00 04/04/17 09:14 Hemoglobin 7.4 g/dL (13.0-17.5) 7.5 g/dL (13.0-17.5) Hematocrit 23.7 % (39.0-53.0) 23.5 % (39.0-53.0) Mean Corpuscular Hemoglobin Concent 31 g/dL (31-37) 32 g/dL (31-37) Prothrombin Time 18.7 SEC (11.7-14.0) Prothromb Time International Ratio 1.7 (0.8-1.1) Sodium Level 139 mmol/L (136-145) Potassium Level 4.7 mmol/L (3.5-5.1) Chloride Level 108 mmol/L (98-107) Carbon Dioxide Level 19 mmol/L (21-32) Anion Gap 12 (6-14) Blood Urea Nitrogen 43 mg/dL (8-26) Creatinine 2.4 mg/dL (0.7-1.3) Estimated GFR (Cockcroft-Gault) 26.5 Glucose Level 107 mg/dL (70-99) Lactic Acid Level 3.7 mmol/L (0.4-2.0) Calcium Level 7.0 mg/dL (8.5-10.1) Phosphorus Level 4.9 mg/dL (2.6-4.7) Magnesium Level 1.9 mg/dL (1.8-2.4) Total Bilirubin 0.8 mg/dL (0.2-1.0) Direct Bilirubin 0.3 mg/dL (0.0-0.2) Aspartate Amino Transf (AST/SGOT) 41 U/L (15-37) Alanine Aminotransferase (ALT/SGPT) 29 U/L (16-63) Alkaline Phosphatase 63 U/L (46-116) Total Protein 5.5 g/dL (6.4-8.2) Albumin 2.0 g/dL (3.4-5.0) White Blood Count 53.2 x10^3/uL (4.0-11.0) Platelet Count 203 x10^3/uL (140-400) O2 Saturation 98 % (92-99) Arterial Blood pH 7.34 (7.35-7.45) Arterial Blood pCO2 at Patient Temp 32 mmHg (35-46) Arterial Blood pO2 at Patient Temp 137 mmHg (65-108) Arterial Blood HCO3 17 mmol/L (21-28) Arterial Blood Base Excess -8 mmol/L (-3-3) FiO2 100 Test 04/04/17 10:25 04/04/17 11:15 04/04/17 14:00 04/04/17 17:00 White Blood Count 36.5 x10^3/uL (4.0-11.0) Red Blood Count 2.39 x10^6/uL (4.30-5.70) Hemoglobin 6.9 g/dL (13.0-17.5) 7.9 g/dL (13.0-17.5) Hematocrit 21.2 % (39.0-53.0) 22.6 % (39.0-53.0) Mean Corpuscular Volume 88 fL (79-100) Mean Corpuscular Hemoglobin 29 pg (25-35) Mean Corpuscular Hemoglobin Concent 33 g/dL (31-37) 35 g/dL (31-37) Red Cell Distribution Width 15.6 % (11.5-14.5) Platelet Count 190 x10^3/uL (140-400) Neutrophils (%) (Auto) 61 % (31-73) Lymphocytes (%) (Auto) 34 % (24-48) Monocytes (%) (Auto) 5 % (0-9) Eosinophils (%) (Auto) 0 % (0-3) Basophils (%) (Auto) 0 % (0-3) Neutrophils # (Auto) 22.1 x10^3uL (1.8-7.7) Lymphocytes # (Auto) 12.4 x10^3/uL (1.0-4.8) Monocytes # (Auto) 1.9 x10^3/uL (0.0-1.1) Eosinophils # (Auto) 0.0 x10^3/uL (0.0-0.7) Basophils # (Auto) 0.0 x10^3/uL (0.0-0.2) Sodium Level 142 mmol/L (136-145) Potassium Level 4.6 mmol/L (3.5-5.1) Chloride Level 109 mmol/L (98-107) Carbon Dioxide Level 21 mmol/L (21-32) Anion Gap 12 (6-14) Blood Urea Nitrogen 48 mg/dL (8-26) Creatinine 2.5 mg/dL (0.7-1.3) Estimated GFR (Cockcroft-Gault) 25.2 BUN/Creatinine Ratio 19 (6-20) Glucose Level 116 mg/dL (70-99) Calcium Level 6.7 mg/dL (8.5-10.1) Total Bilirubin 0.7 mg/dL (0.2-1.0) Aspartate Amino Transf (AST/SGOT) 41 U/L (15-37) Alanine Aminotransferase (ALT/SGPT) 28 U/L (16-63) Alkaline Phosphatase 60 U/L (46-116) Total Protein 5.0 g/dL (6.4-8.2) Albumin 1.9 g/dL (3.4-5.0) Albumin/Globulin Ratio 0.6 (1.0-1.7) Urine Collection Type Unknown Urine Color Yellow Urine Clarity Cloudy Urine pH 5.0 Urine Specific Dearing >=1.030 Urine Protein 30 mg/dL (NEG-TRACE) Urine Glucose (UA) Negative mg/dL (NEG) Urine Ketones (Stick) Negative mg/dL (NEG) Urine Blood Moderate (NEG) Urine Nitrite Negative (NEG) Urine Bilirubin Negative (NEG) Urine Urobilinogen Dipstick 0.2 mg/dL (0.2 mg/dL) Urine Leukocyte Esterase Negative (NEG) Urine RBC 0 /HPF (0-2) Urine WBC 1-4 /HPF (0-4) Urine Transitional Epithelial Cells Mod /LPF Urine Amorphous Sediment Present /HPF Urine Bacteria 0 /HPF (0-FEW) Urine Mucus Slight /LPF Lactic Acid Level 1.8 mmol/L (0.4-2.0) Ionized Calcium 0.99 mmol/L (1.13-1.32) O2 Saturation 94 % (92-99) Arterial Blood pH 7.51 (7.35-7.45) Arterial Blood pCO2 at Patient Temp 17 mmHg (35-46) Arterial Blood pO2 at Patient Temp 71 mmHg (65-108) Arterial Blood HCO3 14 mmol/L (21-28) Arterial Blood Base Excess -9 mmol/L (-3-3) FiO2 90 Test 04/04/17 17:40 04/05/17 05:20 04/05/17 08:00 Hemoglobin 9.6 g/dL (13.0-17.5) 8.4 g/dL (13.0-17.5) Hematocrit 28.5 % (39.0-53.0) 24.1 % (39.0-53.0) Mean Corpuscular Hemoglobin Concent 34 g/dL (31-37) 35 g/dL (31-37) White Blood Count 27.5 x10^3/uL (4.0-11.0) Red Blood Count 2.85 x10^6/uL (4.30-5.70) Mean Corpuscular Volume 85 fL (79-100) Mean Corpuscular Hemoglobin 30 pg (25-35) Red Cell Distribution Width 17.0 % (11.5-14.5) Platelet Count 160 x10^3/uL (140-400) Neutrophils (%) (Auto) 54 % (31-73) Lymphocytes (%) (Auto) 39 % (24-48) Monocytes (%) (Auto) 7 % (0-9) Eosinophils (%) (Auto) 0 % (0-3) Basophils (%) (Auto) 0 % (0-3) Neutrophils # (Auto) 14.8 x10^3uL (1.8-7.7) Lymphocytes # (Auto) 10.7 x10^3/uL (1.0-4.8) Monocytes # (Auto) 1.9 x10^3/uL (0.0-1.1) Eosinophils # (Auto) 0.0 x10^3/uL (0.0-0.7) Basophils # (Auto) 0.0 x10^3/uL (0.0-0.2) Prothrombin Time 14.9 SEC (11.7-14.0) Prothromb Time International Ratio 1.2 (0.8-1.1) Sodium Level 142 mmol/L (136-145) Potassium Level 3.9 mmol/L (3.5-5.1) Chloride Level 107 mmol/L (98-107) Carbon Dioxide Level 27 mmol/L (21-32) Anion Gap 8 (6-14) Blood Urea Nitrogen 35 mg/dL (8-26) Creatinine 1.9 mg/dL (0.7-1.3) Estimated GFR (Cockcroft-Gault) 34.6 Glucose Level 109 mg/dL (70-99) Calcium Level 7.1 mg/dL (8.5-10.1) Phosphorus Level 4.2 mg/dL (2.6-4.7) Magnesium Level 1.7 mg/dL (1.8-2.4) O2 Saturation 98 % (92-99) Arterial Blood pH 7.41 (7.35-7.45) Arterial Blood pCO2 at Patient Temp 37 mmHg (35-46) Arterial Blood pO2 at Patient Temp 139 mmHg (65-108) Arterial Blood HCO3 23 mmol/L (21-28) Arterial Blood Base Excess -1 mmol/L (-3-3) FiO2 .65 Laboratory Tests Test 04/04/17 09:00 04/04/17 09:14 04/04/17 10:25 04/04/17 11:15 White Blood Count 53.2 x10^3/uL (4.0-11.0) 36.5 x10^3/uL (4.0-11.0) Platelet Count 203 x10^3/uL (140-400) 190 x10^3/uL (140-400) O2 Saturation 98 % (92-99) Arterial Blood pH 7.34 (7.35-7.45) Arterial Blood pCO2 at Patient Temp 32 mmHg (35-46) Arterial Blood pO2 at Patient Temp 137 mmHg (65-108) Arterial Blood HCO3 17 mmol/L (21-28) Arterial Blood Base Excess -8 mmol/L (-3-3) FiO2 100 Red Blood Count 2.39 x10^6/uL (4.30-5.70) Hemoglobin 6.9 g/dL (13.0-17.5) Hematocrit 21.2 % (39.0-53.0) Mean Corpuscular Volume 88 fL (79-100) Mean Corpuscular Hemoglobin 29 pg (25-35) Mean Corpuscular Hemoglobin Concent 33 g/dL (31-37) Red Cell Distribution Width 15.6 % (11.5-14.5) Neutrophils (%) (Auto) 61 % (31-73) Lymphocytes (%) (Auto) 34 % (24-48) Monocytes (%) (Auto) 5 % (0-9) Eosinophils (%) (Auto) 0 % (0-3) Basophils (%) (Auto) 0 % (0-3) Neutrophils # (Auto) 22.1 x10^3uL (1.8-7.7) Lymphocytes # (Auto) 12.4 x10^3/uL (1.0-4.8) Monocytes # (Auto) 1.9 x10^3/uL (0.0-1.1) Eosinophils # (Auto) 0.0 x10^3/uL (0.0-0.7) Basophils # (Auto) 0.0 x10^3/uL (0.0-0.2) Sodium Level 142 mmol/L (136-145) Potassium Level 4.6 mmol/L (3.5-5.1) Chloride Level 109 mmol/L (98-107) Carbon Dioxide Level 21 mmol/L (21-32) Anion Gap 12 (6-14) Blood Urea Nitrogen 48 mg/dL (8-26) Creatinine 2.5 mg/dL (0.7-1.3) Estimated GFR (Cockcroft-Gault) 25.2 BUN/Creatinine Ratio 19 (6-20) Glucose Level 116 mg/dL (70-99) Calcium Level 6.7 mg/dL (8.5-10.1) Total Bilirubin 0.7 mg/dL (0.2-1.0) Aspartate Amino Transf (AST/SGOT) 41 U/L (15-37) Alanine Aminotransferase (ALT/SGPT) 28 U/L (16-63) Alkaline Phosphatase 60 U/L (46-116) Total Protein 5.0 g/dL (6.4-8.2) Albumin 1.9 g/dL (3.4-5.0) Albumin/Globulin Ratio 0.6 (1.0-1.7) Urine Collection Type Unknown Urine Color Yellow Urine Clarity Cloudy Urine pH 5.0 Urine Specific Dearing >=1.030 Urine Protein 30 mg/dL (NEG-TRACE) Urine Glucose (UA) Negative mg/dL (NEG) Urine Ketones (Stick) Negative mg/dL (NEG) Urine Blood Moderate (NEG) Urine Nitrite Negative (NEG) Urine Bilirubin Negative (NEG) Urine Urobilinogen Dipstick 0.2 mg/dL (0.2 mg/dL) Urine Leukocyte Esterase Negative (NEG) Urine RBC 0 /HPF (0-2) Urine WBC 1-4 /HPF (0-4) Urine Transitional Epithelial Cells Mod /LPF Urine Amorphous Sediment Present /HPF Urine Bacteria 0 /HPF (0-FEW) Urine Mucus Slight /LPF Test 04/04/17 14:00 04/04/17 17:00 04/04/17 17:40 04/05/17 05:20 Hemoglobin 7.9 g/dL (13.0-17.5) 9.6 g/dL (13.0-17.5) 8.4 g/dL (13.0-17.5) Hematocrit 22.6 % (39.0-53.0) 28.5 % (39.0-53.0) 24.1 % (39.0-53.0) Mean Corpuscular Hemoglobin Concent 35 g/dL (31-37) 34 g/dL (31-37) 35 g/dL (31-37) Lactic Acid Level 1.8 mmol/L (0.4-2.0) Ionized Calcium 0.99 mmol/L (1.13-1.32) O2 Saturation 94 % (92-99) Arterial Blood pH 7.51 (7.35-7.45) Arterial Blood pCO2 at Patient Temp 17 mmHg (35-46) Arterial Blood pO2 at Patient Temp 71 mmHg (65-108) Arterial Blood HCO3 14 mmol/L (21-28) Arterial Blood Base Excess -9 mmol/L (-3-3) FiO2 90 White Blood Count 27.5 x10^3/uL (4.0-11.0) Red Blood Count 2.85 x10^6/uL (4.30-5.70) Mean Corpuscular Volume 85 fL (79-100) Mean Corpuscular Hemoglobin 30 pg (25-35) Red Cell Distribution Width 17.0 % (11.5-14.5) Platelet Count 160 x10^3/uL (140-400) Neutrophils (%) (Auto) 54 % (31-73) Lymphocytes (%) (Auto) 39 % (24-48) Monocytes (%) (Auto) 7 % (0-9) Eosinophils (%) (Auto) 0 % (0-3) Basophils (%) (Auto) 0 % (0-3) Neutrophils # (Auto) 14.8 x10^3uL (1.8-7.7) Lymphocytes # (Auto) 10.7 x10^3/uL (1.0-4.8) Monocytes # (Auto) 1.9 x10^3/uL (0.0-1.1) Eosinophils # (Auto) 0.0 x10^3/uL (0.0-0.7) Basophils # (Auto) 0.0 x10^3/uL (0.0-0.2) Prothrombin Time 14.9 SEC (11.7-14.0) Prothromb Time International Ratio 1.2 (0.8-1.1) Sodium Level 142 mmol/L (136-145) Potassium Level 3.9 mmol/L (3.5-5.1) Chloride Level 107 mmol/L (98-107) Carbon Dioxide Level 27 mmol/L (21-32) Anion Gap 8 (6-14) Blood Urea Nitrogen 35 mg/dL (8-26) Creatinine 1.9 mg/dL (0.7-1.3) Estimated GFR (Cockcroft-Gault) 34.6 Glucose Level 109 mg/dL (70-99) Calcium Level 7.1 mg/dL (8.5-10.1) Phosphorus Level 4.2 mg/dL (2.6-4.7) Magnesium Level 1.7 mg/dL (1.8-2.4) Test 04/05/17 08:00 O2 Saturation 98 % (92-99) Arterial Blood pH 7.41 (7.35-7.45) Arterial Blood pCO2 at Patient Temp 37 mmHg (35-46) Arterial Blood pO2 at Patient Temp 139 mmHg (65-108) Arterial Blood HCO3 23 mmol/L (21-28) Arterial Blood Base Excess -1 mmol/L (-3-3) FiO2 .65 Medications Active Scripts Medications Dose Route/Sig Max Daily Dose Days Date Category Augmentin 875-125 Tablet (Amoxicillin/Potassium Clav) 1 Each Tablet 1 Tab PO BID 01/03/17 Reported Proair Hfa (Albuterol Sulfate) 8.5 Gm Hfa.aer.ad 9 Gm IH 01/03/17 Reported Proscar (Finasteride) 5 Mg Tablet 1 Tab PO DAILY 01/03/17 Reported NITROGLYCERIN SubLingual (Nitroglycerin) 0.4 Mg Tab.subl 1 Tab SL UD 01/03/17 Reported Coumadin (Warfarin Sodium) 3 Mg Tablet 1 Tab PO DAILY 01/03/17 Reported Proair Hfa Inhaler (Albuterol Sulfate) 8.5 Gm Hfa.aer.ad 1-2 Inh IH Q4-6 HRS PRN 03/22/14 Reported Lipitor (Atorvastatin Calcium) 80 Mg Tablet 80 Mg PO DAILY 03/22/14 Reported Comments cxr reviewed, There is rotation to the left. An endotracheal tube has its tip 6 cm above the kenn. A nasogastric tube has its tip below the inferior margin of the field of view. Right internal jugular central venous and hemodialysis catheters have their tips in the superior cavoatrial junction. A left-sided pacemaker has its leads in the right atrium and right ventricle. There is a small right pleural effusion with right basilar atelectasis. Impression . IMPRESSION: 1. Acute hypoxic respiratory failure, most likely related to acute lung injury/acute respiratory distress syndrome related to significant aspiration during the procedure. 2. Acute hemorrhagic shock resulting from retroperitoneal bleed while the patient has been on Coumadin with INR of 3.7 on admission that may have been precipitated by a fall. 3. History of asthma. 4. History of chronic atrial fibrillation. 5. Acute kidney injury related to acute tubular necrosis from shock. 6. Markedly elevated white cell count today. This could be related to leukemoid reaction versus septic shock. 7. Severe hypotension, combination of hemorrhagic hypovolemic and septic shock. 8. Severe protein-calorie malnutrition. 9. Lactic acidosis secondary to hypoperfusion from shock. Plan . RECOMMENDATIONS: 1. Continue with present assist control mode. able to go down on fio2 to 50%, will decrease peep as tolerated, not ready for sbt. 2. Broad-spectrum antibiotics. 3. Follow white cell count. 4. Follow blood cultures. 5. elevate hob. 6. s/p 4 PRBC transfusion, 4 ffp. 7. Follow serial hemoglobin. 8. Closely watch renal function. May need dialysis. 9. Bronchodilators. 10. Vitamin K and FFP as needed. 11. discussed w rn, rt DIANE KELLY MD Apr 05, 2017 08:23
--- NOTE | 2017-04-05 09:11 | RAD ---
EXAM: Chest one view. HISTORY: Renal failure, respiratory distress syndrome. COMPARISON: 04/04/2017. FINDINGS: A frontal view of the chest is obtained. There is rotation to the left. An endotracheal tube has its tip 6 cm above the kenn. A nasogastric tube has its tip below the inferior margin of the field of view. Right internal jugular central venous and hemodialysis catheters have their tips in the superior cavoatrial junction. A left-sided pacemaker has its leads in the right atrium and right ventricle. There is a small right pleural effusion with right basilar atelectasis. There is no pneumothorax. The heart is not enlarged. A calcified granuloma is noted in the right base. There are atherosclerotic calcifications of the aorta. IMPRESSION: 1. Small right pleural effusion.
--- NOTE | 2017-04-05 09:42 | PDOC ---
Infectious Disease Note Subjective Subjective Remains intubated, FiO2 50% Fever 100.1 Hypotensive, Levophed now down to 14 mcg ROS ROS Unobtainable Vital Sign Vital Signs Vital Signs Date Time Temp Pulse Resp B/P (MAP) Pulse Ox O2 Delivery O2 Flow Rate FiO2 04/05/17 08:58 72 26 105/56 (72) 100 Ventilator 04/05/17 07:30 97.8 97.8 Physical Exam PHYSICAL EXAM GENERAL: Intubated and sedated. [place]. Dialyzing HEENT: Pupils round, ETT, NGT LUNGS: Diminished aeration bases HEART: S1S2, no gallop, no murmur ABD: Distended, BS active, soft : [place] EXT: No pitting edema, no cyanosis ROLL GRINDER: Sedated SKIN: No rash. Left groin dressing dry and intact RIJ/HDC. clean Peripheral IV Labs Lab Laboratory Tests Test 04/04/17 10:25 04/04/17 11:15 04/04/17 14:00 04/04/17 17:00 White Blood Count 36.5 x10^3/uL (4.0-11.0) Red Blood Count 2.39 x10^6/uL (4.30-5.70) Hemoglobin 6.9 g/dL (13.0-17.5) 7.9 g/dL (13.0-17.5) Hematocrit 21.2 % (39.0-53.0) 22.6 % (39.0-53.0) Mean Corpuscular Volume 88 fL (79-100) Mean Corpuscular Hemoglobin 29 pg (25-35) Mean Corpuscular Hemoglobin Concent 33 g/dL (31-37) 35 g/dL (31-37) Red Cell Distribution Width 15.6 % (11.5-14.5) Platelet Count 190 x10^3/uL (140-400) Neutrophils (%) (Auto) 61 % (31-73) Lymphocytes (%) (Auto) 34 % (24-48) Monocytes (%) (Auto) 5 % (0-9) Eosinophils (%) (Auto) 0 % (0-3) Basophils (%) (Auto) 0 % (0-3) Neutrophils # (Auto) 22.1 x10^3uL (1.8-7.7) Lymphocytes # (Auto) 12.4 x10^3/uL (1.0-4.8) Monocytes # (Auto) 1.9 x10^3/uL (0.0-1.1) Eosinophils # (Auto) 0.0 x10^3/uL (0.0-0.7) Basophils # (Auto) 0.0 x10^3/uL (0.0-0.2) Sodium Level 142 mmol/L (136-145) Potassium Level 4.6 mmol/L (3.5-5.1) Chloride Level 109 mmol/L (98-107) Carbon Dioxide Level 21 mmol/L (21-32) Anion Gap 12 (6-14) Blood Urea Nitrogen 48 mg/dL (8-26) Creatinine 2.5 mg/dL (0.7-1.3) Estimated GFR (Cockcroft-Gault) 25.2 BUN/Creatinine Ratio 19 (6-20) Glucose Level 116 mg/dL (70-99) Calcium Level 6.7 mg/dL (8.5-10.1) Total Bilirubin 0.7 mg/dL (0.2-1.0) Aspartate Amino Transf (AST/SGOT) 41 U/L (15-37) Alanine Aminotransferase (ALT/SGPT) 28 U/L (16-63) Alkaline Phosphatase 60 U/L (46-116) Total Protein 5.0 g/dL (6.4-8.2) Albumin 1.9 g/dL (3.4-5.0) Albumin/Globulin Ratio 0.6 (1.0-1.7) Urine Collection Type Unknown Urine Color Yellow Urine Clarity Cloudy Urine pH 5.0 Urine Specific [place] >=1.030 Urine Protein 30 mg/dL (NEG-TRACE) Urine Glucose (UA) Negative mg/dL (NEG) Urine Ketones (Stick) Negative mg/dL (NEG) Urine Blood Moderate (NEG) Urine Nitrite Negative (NEG) Urine Bilirubin Negative (NEG) Urine Urobilinogen Dipstick 0.2 mg/dL (0.2 mg/dL) Urine Leukocyte Esterase Negative (NEG) Urine RBC 0 /HPF (0-2) Urine WBC 1-4 /HPF (0-4) Urine Transitional Epithelial Cells Mod /LPF Urine Amorphous Sediment Present /HPF Urine Bacteria 0 /HPF (0-FEW) Urine Mucus Slight /LPF Lactic Acid Level 1.8 mmol/L (0.4-2.0) Ionized Calcium 0.99 mmol/L (1.13-1.32) O2 Saturation 94 % (92-99) Arterial Blood pH 7.51 (7.35-7.45) Arterial Blood pCO2 at Patient Temp 17 mmHg (35-46) Arterial Blood pO2 at Patient Temp 71 mmHg (65-108) Arterial Blood HCO3 14 mmol/L (21-28) Arterial Blood Base Excess -9 mmol/L (-3-3) FiO2 90 Test 04/04/17 17:40 04/05/17 05:20 04/05/17 08:00 Hemoglobin 9.6 g/dL (13.0-17.5) 8.4 g/dL (13.0-17.5) Hematocrit 28.5 % (39.0-53.0) 24.1 % (39.0-53.0) Mean Corpuscular Hemoglobin Concent 34 g/dL (31-37) 35 g/dL (31-37) White Blood Count 27.5 x10^3/uL (4.0-11.0) Red Blood Count 2.85 x10^6/uL (4.30-5.70) Mean Corpuscular Volume 85 fL (79-100) Mean Corpuscular Hemoglobin 30 pg (25-35) Red Cell Distribution Width 17.0 % (11.5-14.5) Platelet Count 160 x10^3/uL (140-400) Neutrophils (%) (Auto) 54 % (31-73) Lymphocytes (%) (Auto) 39 % (24-48) Monocytes (%) (Auto) 7 % (0-9) Eosinophils (%) (Auto) 0 % (0-3) Basophils (%) (Auto) 0 % (0-3) Neutrophils # (Auto) 14.8 x10^3uL (1.8-7.7) Lymphocytes # (Auto) 10.7 x10^3/uL (1.0-4.8) Monocytes # (Auto) 1.9 x10^3/uL (0.0-1.1) Eosinophils # (Auto) 0.0 x10^3/uL (0.0-0.7) Basophils # (Auto) 0.0 x10^3/uL (0.0-0.2) Prothrombin Time 14.9 SEC (11.7-14.0) Prothromb Time International Ratio 1.2 (0.8-1.1) Sodium Level 142 mmol/L (136-145) Potassium Level 3.9 mmol/L (3.5-5.1) Chloride Level 107 mmol/L (98-107) Carbon Dioxide Level 27 mmol/L (21-32) Anion Gap 8 (6-14) Blood Urea Nitrogen 35 mg/dL (8-26) Creatinine 1.9 mg/dL (0.7-1.3) Estimated GFR (Cockcroft-Gault) 34.6 Glucose Level 109 mg/dL (70-99) Calcium Level 7.1 mg/dL (8.5-10.1) Phosphorus Level 4.2 mg/dL (2.6-4.7) Magnesium Level 1.7 mg/dL (1.8-2.4) O2 Saturation 98 % (92-99) Arterial Blood pH 7.41 (7.35-7.45) Arterial Blood pCO2 at Patient Temp 37 mmHg (35-46) Arterial Blood pO2 at Patient Temp 139 mmHg (65-108) Arterial Blood HCO3 23 mmol/L (21-28) Arterial Blood Base Excess -1 mmol/L (-3-3) FiO2 .65 EXAM: Chest one view. HISTORY: Renal failure, respiratory distress syndrome. COMPARISON: 04/04/2017. FINDINGS: A frontal view of the chest is obtained. There is rotation to the left. An endotracheal tube has its tip 6 cm above the kenn. A nasogastric tube has its tip below the inferior margin of the field of view. Right internal jugular central venous and hemodialysis catheters have their tips in the superior cavoatrial junction. A left-sided pacemaker has its leads in the right atrium and right ventricle. There is a small right pleural effusion with right basilar atelectasis. There is no pneumothorax. The heart is not enlarged. A calcified granuloma is noted in the right base. There are atherosclerotic calcifications of the aorta. IMPRESSION: 1. Small right pleural effusion. Micro Sputum GRAM STAIN Final WBCS MODERATE GRAM NEGATIVE RODS MANY YEAST MODERATE COMMENTS MIXED GNRS, SOME WITH CENTRAL SWELLING. \ BLOOD CULTURE Preliminary NO GROWTH AFTER 1 DAY Objective Assessment Sepsis vs SIRS - on Levophed Fever Leukocytosis, trending down Retroperitoneal bleed s/p 04/03 Selective/superselective right iliac arteriogram.Trans-microcatheter Gelfoam slurry and microcoil embolization of right iliolumbar artery Aspiration -vomiting 04/03. GNR MARTHA on HD Resp failure Levoflox allergy - tendon rupture/Bactrim allergy - sores Afib Plan Plan of Care Hold Vanc with MARTHA. last dose 04/03 Continue Zosyn and micafungin Await GNR ID Monitor labs May need repeat Abd imaging Critically ill Attending Co-Sign The patient was seen and interviewed as well as examined at the bedside. The chart was reviewed. The case was discussed. Agree with the plan of care. LISSETH ONEIL APRN Apr 05, 2017 09:42 WILFRID AGUILAR MD Apr 05, 2017 13:57
--- NOTE | 2017-04-05 10:18 | PDOC ---
Subjective: Subjective: Onc f/u- Retroperitoneal bleed No changes Intubated, sedated On pressors, less Receiving dialysis Objective: Vital Signs: Vital Signs Date Time Temp Pulse Resp B/P (MAP) Pulse Ox O2 Delivery O2 Flow Rate FiO2 04/05/17 10:05 71 21 133/65 (87) 100 Ventilator 04/05/17 07:30 97.8 97.8 Physical Exam: Heart: Regular rate Extremities: No edema General: Other (sedated) Lungs: Other (intubated) Skin: Other (no bruising) Labs/Imaging: Hgb overall stable, 8.4 INR 1.2 Blood cx- GNR Assessment/Plan A/P: 1. Retroperitoneal bleed s/p embolization of right iliolumbar artery 04/03. Received 3 units PRBC. Following serial hgb, transfusing for hgb < 7. On Aranesp. Stable today. 2. Sepsis, multiorgan failure. Intubated, on pressors, abx. ID following. 3. A fib. Coumadin on hold (INR 3.7 on admit). S/p FFP, Vit K. INR normal this AM. BONNIE LOZA DO Apr 05, 2017 10:18
--- NOTE | 2017-04-05 10:21 | PDOC ---
Renal-Progress Notes Subjective Notes Notes NO CHANGE History of Present Illness Hx of present illness STABLE Vitals Vitals Vital Signs Date Time Temp Pulse Resp B/P (MAP) Pulse Ox O2 Delivery O2 Flow Rate FiO2 04/05/17 10:05 71 21 133/65 (87) 100 Ventilator 04/05/17 07:30 97.8 97.8 Weight Weight [ ] I.O. Intake and Output Intake and Output 04/05/17 07:00 Intake Total 2227.0 ml Output Total 490 ml Balance 1737.0 ml IV Total 2227.0 ml Output Urine Total 490 ml # Bowel Movements 1 Labs Labs Laboratory Tests Test 04/04/17 10:25 04/04/17 11:15 04/04/17 14:00 04/04/17 17:00 White Blood Count 36.5 x10^3/uL (4.0-11.0) Red Blood Count 2.39 x10^6/uL (4.30-5.70) Hemoglobin 6.9 g/dL (13.0-17.5) 7.9 g/dL (13.0-17.5) Hematocrit 21.2 % (39.0-53.0) 22.6 % (39.0-53.0) Mean Corpuscular Volume 88 fL (79-100) Mean Corpuscular Hemoglobin 29 pg (25-35) Mean Corpuscular Hemoglobin Concent 33 g/dL (31-37) 35 g/dL (31-37) Red Cell Distribution Width 15.6 % (11.5-14.5) Platelet Count 190 x10^3/uL (140-400) Neutrophils (%) (Auto) 61 % (31-73) Lymphocytes (%) (Auto) 34 % (24-48) Monocytes (%) (Auto) 5 % (0-9) Eosinophils (%) (Auto) 0 % (0-3) Basophils (%) (Auto) 0 % (0-3) Neutrophils # (Auto) 22.1 x10^3uL (1.8-7.7) Lymphocytes # (Auto) 12.4 x10^3/uL (1.0-4.8) Monocytes # (Auto) 1.9 x10^3/uL (0.0-1.1) Eosinophils # (Auto) 0.0 x10^3/uL (0.0-0.7) Basophils # (Auto) 0.0 x10^3/uL (0.0-0.2) Sodium Level 142 mmol/L (136-145) Potassium Level 4.6 mmol/L (3.5-5.1) Chloride Level 109 mmol/L (98-107) Carbon Dioxide Level 21 mmol/L (21-32) Anion Gap 12 (6-14) Blood Urea Nitrogen 48 mg/dL (8-26) Creatinine 2.5 mg/dL (0.7-1.3) Estimated GFR (Cockcroft-Gault) 25.2 BUN/Creatinine Ratio 19 (6-20) Glucose Level 116 mg/dL (70-99) Calcium Level 6.7 mg/dL (8.5-10.1) Total Bilirubin 0.7 mg/dL (0.2-1.0) Aspartate Amino Transf (AST/SGOT) 41 U/L (15-37) Alanine Aminotransferase (ALT/SGPT) 28 U/L (16-63) Alkaline Phosphatase 60 U/L (46-116) Total Protein 5.0 g/dL (6.4-8.2) Albumin 1.9 g/dL (3.4-5.0) Albumin/Globulin Ratio 0.6 (1.0-1.7) Urine Collection Type Unknown Urine Color Yellow Urine Clarity Cloudy Urine pH 5.0 Urine Specific [place] >=1.030 Urine Protein 30 mg/dL (NEG-TRACE) Urine Glucose (UA) Negative mg/dL (NEG) Urine Ketones (Stick) Negative mg/dL (NEG) Urine Blood Moderate (NEG) Urine Nitrite Negative (NEG) Urine Bilirubin Negative (NEG) Urine Urobilinogen Dipstick 0.2 mg/dL (0.2 mg/dL) Urine Leukocyte Esterase Negative (NEG) Urine RBC 0 /HPF (0-2) Urine WBC 1-4 /HPF (0-4) Urine Transitional Epithelial Cells Mod /LPF Urine Amorphous Sediment Present /HPF Urine Bacteria 0 /HPF (0-FEW) Urine Mucus Slight /LPF Lactic Acid Level 1.8 mmol/L (0.4-2.0) Ionized Calcium 0.99 mmol/L (1.13-1.32) O2 Saturation 94 % (92-99) Arterial Blood pH 7.51 (7.35-7.45) Arterial Blood pCO2 at Patient Temp 17 mmHg (35-46) Arterial Blood pO2 at Patient Temp 71 mmHg (65-108) Arterial Blood HCO3 14 mmol/L (21-28) Arterial Blood Base Excess -9 mmol/L (-3-3) FiO2 90 Test 04/04/17 17:40 04/05/17 05:20 04/05/17 08:00 Hemoglobin 9.6 g/dL (13.0-17.5) 8.4 g/dL (13.0-17.5) Hematocrit 28.5 % (39.0-53.0) 24.1 % (39.0-53.0) Mean Corpuscular Hemoglobin Concent 34 g/dL (31-37) 35 g/dL (31-37) White Blood Count 27.5 x10^3/uL (4.0-11.0) Red Blood Count 2.85 x10^6/uL (4.30-5.70) Mean Corpuscular Volume 85 fL (79-100) Mean Corpuscular Hemoglobin 30 pg (25-35) Red Cell Distribution Width 17.0 % (11.5-14.5) Platelet Count 160 x10^3/uL (140-400) Neutrophils (%) (Auto) 54 % (31-73) Lymphocytes (%) (Auto) 39 % (24-48) Monocytes (%) (Auto) 7 % (0-9) Eosinophils (%) (Auto) 0 % (0-3) Basophils (%) (Auto) 0 % (0-3) Neutrophils # (Auto) 14.8 x10^3uL (1.8-7.7) Lymphocytes # (Auto) 10.7 x10^3/uL (1.0-4.8) Monocytes # (Auto) 1.9 x10^3/uL (0.0-1.1) Eosinophils # (Auto) 0.0 x10^3/uL (0.0-0.7) Basophils # (Auto) 0.0 x10^3/uL (0.0-0.2) Prothrombin Time 14.9 SEC (11.7-14.0) Prothromb Time International Ratio 1.2 (0.8-1.1) Sodium Level 142 mmol/L (136-145) Potassium Level 3.9 mmol/L (3.5-5.1) Chloride Level 107 mmol/L (98-107) Carbon Dioxide Level 27 mmol/L (21-32) Anion Gap 8 (6-14) Blood Urea Nitrogen 35 mg/dL (8-26) Creatinine 1.9 mg/dL (0.7-1.3) Estimated GFR (Cockcroft-Gault) 34.6 Glucose Level 109 mg/dL (70-99) Calcium Level 7.1 mg/dL (8.5-10.1) Phosphorus Level 4.2 mg/dL (2.6-4.7) Magnesium Level 1.7 mg/dL (1.8-2.4) O2 Saturation 98 % (92-99) Arterial Blood pH 7.41 (7.35-7.45) Arterial Blood pCO2 at Patient Temp 37 mmHg (35-46) Arterial Blood pO2 at Patient Temp 139 mmHg (65-108) Arterial Blood HCO3 23 mmol/L (21-28) Arterial Blood Base Excess -1 mmol/L (-3-3) FiO2 .65 Micro Micro Microbiology 04/03/17 Blood Culture - Preliminary, Resulted NO GROWTH AFTER 1 DAY 04/04/17 Gram Stain - Final, Complete Review of Systems Constitutional: yes: no symptom reported Physical Exam General Appearance: no apparent distress Respiratory: bilateral CTA Heart: S1S2 Abdomen: soft, bowel sounds present Extremities: pulses present Neurology: alert Musculoskeletal: Osteoarthritis Assessment Assessment IMP MARTHA-OLIGUIRIC RETROPERITONEAL BLEED COAGULOPATHY-BETTER RESP FAILURE ANEMIA-STABLE LEUCOCYTOSIS PLAN HD TODAY UF MINIMAL CONT TO LOOK FOR RENAL RECOVERY TIM HERRING MD Apr 05, 2017 10:21
--- NOTE | 2017-04-05 10:26 | CARD ---
APPROVED REPORT EXAM: Two-dimensional and M-mode echocardiogram with Doppler and color Doppler. Other Information Quality : Poor INDICATION Atrial Fibrillation LEFT VENTRICLE The left ventricle is not well visualized. RIGHT VENTRICLE The right ventricle is not well visualized. ATRIA The left atrium is not well visualized. The right atrium is not well visualized. AORTIC VALVE The aortic valve is not well visualized. MITRAL VALVE The mitral valve is not well visualized. TRICUSPID VALVE The tricuspid valve is not well visualized. PULMONIC VALVE The pulmonic valve is not well visualized. GREAT VESSELS na Critical Notification Critical Value: No <Conclusion> Technically very difficult study with only subcostal views. Left ventricular systolic function appears within normal limits with ejection fraction 50-55%. Valves not well visualized. No significant pericardial effusion.
--- NOTE | 2017-04-05 10:44 | RAD ---
Bedside ultrasound guided Central Venous Catheter placement Indication: 76-year-old male ICU patient with retroperitoneal hematoma, acute blood loss anemia, sepsis, and hypotension. Bedside ICU central venous catheter insertion has been requested. Anesthesia: Local only Sterility: All elements of maximal sterile barrier technique were utilized, including cap, mask, sterile gown, sterile gloves, large sterile sheet, appropriate hand hygiene, and 2% chlorhexidine for cutaneous antisepsis. Procedure: Informed consent was obtained from the patient's . This procedure was performed bedside in ICU. Preliminary ultrasound examination of right neck revealed wide patency of right internal jugular vein, which was documented with a single hard copy ultrasound image. Right neck was then prepped and draped in the usual sterile fashion, utilizing all elements of maximal sterile barrier technique, as described above. Using aseptic technique, local anesthesia, direct sterile ultrasound guidance, and the micropuncture technique, successful entry was made into right internal jugular vein. The right IJ venostomy tract was then dilated and a 7 [place] triple lumen 20 cm power injectable CVC was easily advanced centrally over an angiographic guidewire. The CVC was then demonstrated to flush and aspirate normally, and was secured at the skin exit site using suture and sterile dressing. Patient tolerated the procedure well, without apparent complication. A STAT portable CXR was requested for CVC position. Impression: Successful, uneventful sono guided placement of right IJ power injectable 7 [place] triple lumen 20 cm CVC, bedside in ICU, as described.
--- NOTE | 2017-04-05 10:48 | RAD ---
Bedside ultrasound-guided right IJ temporary hemodialysis catheter insertion Indication: 76-year-old male ICU patient with retroperitoneal hemorrhage, acute blood loss anemia, sepsis, hypotension, and acute kidney injury requiring hemodialysis. Bedside temporary dialysis catheter insertion has been requested. Anesthesia: Local only Sterility: All elements of maximal sterile barrier technique, hand hygiene, skin preparation, and, if ultrasound was used, sterile ultrasound technique were followed. Procedure: Informed consent was obtained from the patient's . This procedure was performed bedside in ICU. Preliminary ultrasound examination of right neck revealed continued wide patency of right internal jugular vein (s/p earlier placement of right IJ CVC), which was documented with a single hard copy ultrasound image. Right neck was then prepped and draped in the usual sterile fashion, utilizing all elements of maximal sterile barrier technique, as described above. Using aseptic technique, local anesthesia, direct sterile ultrasound guidance, and the micropuncture system, successful percutaneous entry was achieved into right internal jugular vein, taking care to avoid the indwelling central venous catheter. The right IJ venostomy tract was then dilated and a 14 [place] 20 cm temporary hemodialysis catheter was easily advanced centrally over an angiographic guidewire. The catheter was documented to flush and aspirate normally, was packed, and was secured at the right neck exit site utilizing suture and sterile dressing. Patient tolerated the procedure well without apparent complication. A stat portable chest x-ray was requested for line position. Impression: Successful, uneventful ultrasound guided placement of right IJ 14 [place] 20 cm temporary hemodialysis catheter, bedside in ICU, as described.
--- NOTE | 2017-04-05 11:42 | RAD ---
Selective/superselective pelvic/iliac arteriogram. Trans-microcatheter Gelfoam and microcoils embolization of right iliolumbar artery Indication: 76-year-old male ICU patient with retroperitoneal hematoma, acute blood loss anemia, hemorrhagic shock, and CTA evidence of active arterial bleeding within right pelvic retroperitoneum, most likely within right iliolumbar arterial distribution. Urgent arteriogram, with possible embolization, has been requested. Fluoroscopy time: 47.5 minutes Kerma-area Product: 1784 Gycm2 Contrast material: 164 cc Omnipaque 300 Anesthesia: Initially, the patient received 34 minutes moderate sedation utilizing a total of 1 mg Versed and 50 mcg fentanyl. However, anesthesia was emergently contacted, subsequent rapid conversion to general anesthesia with endotracheal intubation due to patient vomiting, with very high risk of aspiration. Consent: The procedure was explained in its entirety to the patient and/or the patient's designated sales representative livestock by a member of the treatment team. This included a discussion of risks and benefits and commonly accepted alternatives to the procedure, as well as expected consequences of no treatment at all. Discussion of risks included, but was not limited to, those that are most frequent and those that are rare, but possibly severe or life-threatening, as well as the possibility of unforeseen complications. Note: The patient himself gave informed consent for the angiography with possible intervention procedure and for moderate sedation. Consent for conversion to general anesthesia was obtained from the patient's family. Sterility: All elements of maximal sterile barrier technique, hand hygiene, skin preparation, and, if ultrasound was used, sterile ultrasound technique were followed. Procedure: Informed consent for angiography, embolization, and moderate sedation was obtained from the patient. Consent for subsequent conversion to general anesthesia was obtained from patient's family. He was placed supine on the angiography table. Preliminary ultrasound examination of left groin revealed wide patency of left common femoral artery, which was documented with a single hard copy ultrasound image. Left groin was then prepped and draped in the usual sterile fashion, utilizing all elements of maximal sterile barrier technique, as described above. Moderate sedation was provided with IV Versed and fentanyl. Using aseptic technique, local anesthesia, direct sterile ultrasound guidance, and the micropuncture system, a 5 Nauruan left common femoral artery sheath was successfully introduced. Oblique pelvis injection: A 5 Nauruan Omni Flush. Catheter was advanced through the left groin sheath into terminal aorta, just above bifurcation. Omnipaque 300 was injected and DSA images were obtained over pelvis in the GERMAN projection. Findings: Radiopaque coils from a previous GI bleed intervention lie projected over cecal region. Common iliac, external iliac, and hypogastric arteries appear widely patent, bilaterally. Right hypogastric artery injection: The Omni Flush catheter was utilized to advance a [employer] advantage guidewire across aortic bifurcation into proximal right superficial femoral artery. The 5 Nauruan left groin sheath was then exchanged over the advantage wire for a 6 Nauruan Jed 2 sheath, which was directed across aortic bifurcation and was successfully introduced into right hypogastric artery. Omnipaque 300 was hand injected and DSA images were obtained over right hemipelvis. Findings: Right hypogastric trunk and anterior and posterior division arteries are widely patent. Extravasation of contrast material, consistent with active bleeding, was demonstrated arising from a tiny terminal branch of right iliolumbar artery. No additional site of active bleeding was detected. Right hypogastric artery posterior division injection: A 4 Nauruan angled glide catheter was coaxially inserted through the 6 Nauruan Jed 2 sheath and was advanced into posterior division of right hypogastric artery over a Glidewire. Omnipaque 300 was again injected and DSA images were obtained over right hemipelvis. Active arterial bleeding from a small terminal branch of right iliolumbar artery was redemonstrated. Again, no additional active bleeding site was detected. Superselective right iliolumbar artery catheterization with embolization: A 2.4 Nauruan program microcatheter was coaxially introduced through the 4 Nauruan angled glide catheter. Successfully, utilizing magnification fluoroscopic guidance and road mapping technique, the microcatheter was successfully advanced over a double angled Terumo GT microguidewire into right iliolumbar artery. Omnipaque 300 was injected through the microcatheter and DSA images were obtained. Those images revealed patent iliolumbar artery trunk, with 2 major branches, both extending superiorly toward the previously demonstrated area of active bleeding. The 2.4 Nauruan microcatheter was then advanced over a single angle Terumo GT microguidewire into the more medial iliolumbar artery branch. Gentle contrast injection confirmed satisfactory microcatheter position. Careful trans-microcatheter embolization of this branch was then performed initially utilizing Gelfoam slurry, followed by deployment of two 2x2 Hilal microcoils and a single 3/2 tornado microcoil. The 2.4 Nauruan microcatheter was then withdrawn into iliolumbar trunk and was then successfully advanced over the single angle Terumo GT microguidewire into the more lateral iliolumbar branch. Satisfactory microcatheter position was confirmed with a gentle contrast injection. Careful trans-microcatheter embolization of this branch was then performed utilizing Gelfoam slurry, followed by four straight 1.5 Hilal microcoils, followed by repeat Gelfoam slurry. The microcatheter was again withdrawn into iliolumbar trunk. Satisfactory microcatheter position was confirmed with contrast injection. Contrast microcatheter embolization of distal iliolumbar trunk was then performed utilizing two 3/2 Tornado microcoils, followed by a single 4/2 tornado microcoil. Completion imaging: Completion DSA images were obtained following injection of contrast material directly into iliolumbar trunk through the microcatheter, following injection of contrast material into posterior division through the angle glide catheter, and following injection of contrast into right hypogastric artery trunk through the Jed 2 sheath. Those images revealed successful embolization, with absence of flow within iliolumbar trunk distal to the coil nest, and absence of flow within the 2 embolized iliolumbar artery branches. No ongoing arterial extravasation was demonstrated. Hemostasis was achieved at the left groin puncture site utilizing the Angio-Seal system. The patient was returned from the angiography suite to the intensive care unit on the ventilator, and hemodynamically stable condition. Impression: 1. Successful selective/superselective right pelvic/iliac arteriogram, revealing a solitary focus of active arterial extravasation from a small terminal branch of right iliolumbar artery. 2. Successful trans-microcatheter embolization of right iliolumbar artery and its two major branches, as described. 3. This procedure was complicated by patient vomiting with high risk of aspiration, requiring urgent conversion to general anesthesia with endotracheal intubation by the department of anesthesiology.
--- NOTE | 2017-04-05 11:43 | PDOC ---
PROGRESS NOTES Chief Complaint Chief Complaint cc: retroperitoneal bleed A/P 1. Retroperitoneal bleed: S/P microcoil embolization of right iliolumbar artery : hemoglobin stable. IR following. 2. Acute anemia of blood loss from above: s/p PRBC AND S/P FFP, monitor hemoglobin, transfuse as needed. 3. Coumadin coagulopathy: INR 1.7, Hold Coumadin. 4. Septic shock possible aspiration: On zosyn and micafungin, ID following. 5, Acute respiratory failure on mechanical ventilation,: Daily CXR, pulmonology following. 6. Shock: on Levophed: Continue IV hydration, on Levophed, 7. Chronic lumbago, hypothyroidism, 8. Renal failure: Temp HD catheter and HD, Cr improving. 9. Afib, pacemaker on Coumadin: holding Coumadin, pacer in situ 10. condition:critical, prognosis poor/ guarded. CC Total time 31 min Vitals Vitals Vital Signs Date Time Temp Pulse Resp B/P (MAP) Pulse Ox O2 Delivery O2 Flow Rate FiO2 04/05/17 11:33 Mechanical Ventilator 04/05/17 11:02 100 04/05/17 10:54 98.5 70 26 123/60 (81) 98.5 Physical Exam General: Other (sedated) Heart: Regular rate, Normal S1, Normal S2 Lungs: Clear, Other Abdomen: Normal bowel sounds, Other (less distention) Extremities: No edema Skin: Other (no bruising) Labs LABS Laboratory Tests Test 04/04/17 14:00 04/04/17 17:00 04/04/17 17:40 04/05/17 05:20 Hemoglobin 7.9 g/dL (13.0-17.5) 9.6 g/dL (13.0-17.5) 8.4 g/dL (13.0-17.5) Hematocrit 22.6 % (39.0-53.0) 28.5 % (39.0-53.0) 24.1 % (39.0-53.0) Mean Corpuscular Hemoglobin Concent 35 g/dL (31-37) 34 g/dL (31-37) 35 g/dL (31-37) Lactic Acid Level 1.8 mmol/L (0.4-2.0) Ionized Calcium 0.99 mmol/L (1.13-1.32) O2 Saturation 94 % (92-99) Arterial Blood pH 7.51 (7.35-7.45) Arterial Blood pCO2 at Patient Temp 17 mmHg (35-46) Arterial Blood pO2 at Patient Temp 71 mmHg (65-108) Arterial Blood HCO3 14 mmol/L (21-28) Arterial Blood Base Excess -9 mmol/L (-3-3) FiO2 90 White Blood Count 27.5 x10^3/uL (4.0-11.0) Red Blood Count 2.85 x10^6/uL (4.30-5.70) Mean Corpuscular Volume 85 fL (79-100) Mean Corpuscular Hemoglobin 30 pg (25-35) Red Cell Distribution Width 17.0 % (11.5-14.5) Platelet Count 160 x10^3/uL (140-400) Neutrophils (%) (Auto) 54 % (31-73) Lymphocytes (%) (Auto) 39 % (24-48) Monocytes (%) (Auto) 7 % (0-9) Eosinophils (%) (Auto) 0 % (0-3) Basophils (%) (Auto) 0 % (0-3) Neutrophils # (Auto) 14.8 x10^3uL (1.8-7.7) Lymphocytes # (Auto) 10.7 x10^3/uL (1.0-4.8) Monocytes # (Auto) 1.9 x10^3/uL (0.0-1.1) Eosinophils # (Auto) 0.0 x10^3/uL (0.0-0.7) Basophils # (Auto) 0.0 x10^3/uL (0.0-0.2) Prothrombin Time 14.9 SEC (11.7-14.0) Prothromb Time International Ratio 1.2 (0.8-1.1) Sodium Level 142 mmol/L (136-145) Potassium Level 3.9 mmol/L (3.5-5.1) Chloride Level 107 mmol/L (98-107) Carbon Dioxide Level 27 mmol/L (21-32) Anion Gap 8 (6-14) Blood Urea Nitrogen 35 mg/dL (8-26) Creatinine 1.9 mg/dL (0.7-1.3) Estimated GFR (Cockcroft-Gault) 34.6 Glucose Level 109 mg/dL (70-99) Calcium Level 7.1 mg/dL (8.5-10.1) Phosphorus Level 4.2 mg/dL (2.6-4.7) Magnesium Level 1.7 mg/dL (1.8-2.4) Test 04/05/17 08:00 O2 Saturation 98 % (92-99) Arterial Blood pH 7.41 (7.35-7.45) Arterial Blood pCO2 at Patient Temp 37 mmHg (35-46) Arterial Blood pO2 at Patient Temp 139 mmHg (65-108) Arterial Blood HCO3 23 mmol/L (21-28) Arterial Blood Base Excess -1 mmol/L (-3-3) FiO2 .65 Assessment and Plan Assessmemt and Plan Problems Medical Problems: (1) Anticoagulated Status: Acute (2) Retroperitoneal bleed Status: Acute Problems: Comment Review of Relevant I have reviewed the following items sarbjit (where applicable) has been applied. Labs Laboratory Tests Test 04/03/17 12:00 04/03/17 17:45 04/03/17 19:00 04/03/17 22:10 Hemoglobin 8.4 g/dL (13.0-17.5) 8.5 g/dL (13.0-17.5) Hematocrit 26.3 % (39.0-53.0) 26.1 % (39.0-53.0) Mean Corpuscular Hemoglobin Concent 32 g/dL (31-37) 33 g/dL (31-37) O2 Saturation 85 % (92-99) 86 % (92-99) Arterial Blood pH 7.19 (7.35-7.45) 7.22 (7.35-7.45) Arterial Blood pCO2 at Patient Temp 48 mmHg (35-46) 47 mmHg (35-46) Arterial Blood pO2 at Patient Temp 63 mmHg (65-108) 61 mmHg (65-108) Arterial Blood HCO3 18 mmol/L (21-28) 19 mmol/L (21-28) Arterial Blood Base Excess -10 mmol/L (-3-3) -8 mmol/L (-3-3) Oxyhemoglobin 84.3 % Methemoglobin 0.7 % (0.0-1.9) Carbon Monoxide, Quantitative 0.3 % (0.0-1.9) FiO2 100 100 Prothrombin Time 17.1 SEC (11.7-14.0) Prothromb Time International Ratio 1.5 (0.8-1.1) Sodium Level 137 mmol/L (136-145) Potassium Level 5.2 mmol/L (3.5-5.1) Chloride Level 104 mmol/L (98-107) Carbon Dioxide Level 20 mmol/L (21-32) Anion Gap 13 (6-14) Blood Urea Nitrogen 45 mg/dL (8-26) Creatinine 2.4 mg/dL (0.7-1.3) Estimated GFR (Cockcroft-Gault) 26.5 Glucose Level 97 mg/dL (70-99) Lactic Acid Level 4.9 mmol/L (0.4-2.0) Calcium Level 7.4 mg/dL (8.5-10.1) Test 04/04/17 00:05 04/04/17 03:30 04/04/17 09:00 04/04/17 09:14 Hemoglobin 7.4 g/dL (13.0-17.5) 7.5 g/dL (13.0-17.5) Hematocrit 23.7 % (39.0-53.0) 23.5 % (39.0-53.0) Mean Corpuscular Hemoglobin Concent 31 g/dL (31-37) 32 g/dL (31-37) Prothrombin Time 18.7 SEC (11.7-14.0) Prothromb Time International Ratio 1.7 (0.8-1.1) Sodium Level 139 mmol/L (136-145) Potassium Level 4.7 mmol/L (3.5-5.1) Chloride Level 108 mmol/L (98-107) Carbon Dioxide Level 19 mmol/L (21-32) Anion Gap 12 (6-14) Blood Urea Nitrogen 43 mg/dL (8-26) Creatinine 2.4 mg/dL (0.7-1.3) Estimated GFR (Cockcroft-Gault) 26.5 Glucose Level 107 mg/dL (70-99) Lactic Acid Level 3.7 mmol/L (0.4-2.0) Calcium Level 7.0 mg/dL (8.5-10.1) Phosphorus Level 4.9 mg/dL (2.6-4.7) Magnesium Level 1.9 mg/dL (1.8-2.4) Total Bilirubin 0.8 mg/dL (0.2-1.0) Direct Bilirubin 0.3 mg/dL (0.0-0.2) Aspartate Amino Transf (AST/SGOT) 41 U/L (15-37) Alanine Aminotransferase (ALT/SGPT) 29 U/L (16-63) Alkaline Phosphatase 63 U/L (46-116) Total Protein 5.5 g/dL (6.4-8.2) Albumin 2.0 g/dL (3.4-5.0) White Blood Count 53.2 x10^3/uL (4.0-11.0) Platelet Count 203 x10^3/uL (140-400) O2 Saturation 98 % (92-99) Arterial Blood pH 7.34 (7.35-7.45) Arterial Blood pCO2 at Patient Temp 32 mmHg (35-46) Arterial Blood pO2 at Patient Temp 137 mmHg (65-108) Arterial Blood HCO3 17 mmol/L (21-28) Arterial Blood Base Excess -8 mmol/L (-3-3) FiO2 100 Test 04/04/17 10:25 04/04/17 11:15 04/04/17 14:00 04/04/17 17:00 White Blood Count 36.5 x10^3/uL (4.0-11.0) Red Blood Count 2.39 x10^6/uL (4.30-5.70) Hemoglobin 6.9 g/dL (13.0-17.5) 7.9 g/dL (13.0-17.5) Hematocrit 21.2 % (39.0-53.0) 22.6 % (39.0-53.0) Mean Corpuscular Volume 88 fL (79-100) Mean Corpuscular Hemoglobin 29 pg (25-35) Mean Corpuscular Hemoglobin Concent 33 g/dL (31-37) 35 g/dL (31-37) Red Cell Distribution Width 15.6 % (11.5-14.5) Platelet Count 190 x10^3/uL (140-400) Neutrophils (%) (Auto) 61 % (31-73) Lymphocytes (%) (Auto) 34 % (24-48) Monocytes (%) (Auto) 5 % (0-9) Eosinophils (%) (Auto) 0 % (0-3) Basophils (%) (Auto) 0 % (0-3) Neutrophils # (Auto) 22.1 x10^3uL (1.8-7.7) Lymphocytes # (Auto) 12.4 x10^3/uL (1.0-4.8) Monocytes # (Auto) 1.9 x10^3/uL (0.0-1.1) Eosinophils # (Auto) 0.0 x10^3/uL (0.0-0.7) Basophils # (Auto) 0.0 x10^3/uL (0.0-0.2) Sodium Level 142 mmol/L (136-145) Potassium Level 4.6 mmol/L (3.5-5.1) Chloride Level 109 mmol/L (98-107) Carbon Dioxide Level 21 mmol/L (21-32) Anion Gap 12 (6-14) Blood Urea Nitrogen 48 mg/dL (8-26) Creatinine 2.5 mg/dL (0.7-1.3) Estimated GFR (Cockcroft-Gault) 25.2 BUN/Creatinine Ratio 19 (6-20) Glucose Level 116 mg/dL (70-99) Calcium Level 6.7 mg/dL (8.5-10.1) Total Bilirubin 0.7 mg/dL (0.2-1.0) Aspartate Amino Transf (AST/SGOT) 41 U/L (15-37) Alanine Aminotransferase (ALT/SGPT) 28 U/L (16-63) Alkaline Phosphatase 60 U/L (46-116) Total Protein 5.0 g/dL (6.4-8.2) Albumin 1.9 g/dL (3.4-5.0) Albumin/Globulin Ratio 0.6 (1.0-1.7) Urine Collection Type Unknown Urine Color Yellow Urine Clarity Cloudy Urine pH 5.0 Urine Specific [place] >=1.030 Urine Protein 30 mg/dL (NEG-TRACE) Urine Glucose (UA) Negative mg/dL (NEG) Urine Ketones (Stick) Negative mg/dL (NEG) Urine Blood Moderate (NEG) Urine Nitrite Negative (NEG) Urine Bilirubin Negative (NEG) Urine Urobilinogen Dipstick 0.2 mg/dL (0.2 mg/dL) Urine Leukocyte Esterase Negative (NEG) Urine RBC 0 /HPF (0-2) Urine WBC 1-4 /HPF (0-4) Urine Transitional Epithelial Cells Mod /LPF Urine Amorphous Sediment Present /HPF Urine Bacteria 0 /HPF (0-FEW) Urine Mucus Slight /LPF Lactic Acid Level 1.8 mmol/L (0.4-2.0) Ionized Calcium 0.99 mmol/L (1.13-1.32) O2 Saturation 94 % (92-99) Arterial Blood pH 7.51 (7.35-7.45) Arterial Blood pCO2 at Patient Temp 17 mmHg (35-46) Arterial Blood pO2 at Patient Temp 71 mmHg (65-108) Arterial Blood HCO3 14 mmol/L (21-28) Arterial Blood Base Excess -9 mmol/L (-3-3) FiO2 90 Test 04/04/17 17:40 04/05/17 05:20 04/05/17 08:00 Hemoglobin 9.6 g/dL (13.0-17.5) 8.4 g/dL (13.0-17.5) Hematocrit 28.5 % (39.0-53.0) 24.1 % (39.0-53.0) Mean Corpuscular Hemoglobin Concent 34 g/dL (31-37) 35 g/dL (31-37) White Blood Count 27.5 x10^3/uL (4.0-11.0) Red Blood Count 2.85 x10^6/uL (4.30-5.70) Mean Corpuscular Volume 85 fL (79-100) Mean Corpuscular Hemoglobin 30 pg (25-35) Red Cell Distribution Width 17.0 % (11.5-14.5) Platelet Count 160 x10^3/uL (140-400) Neutrophils (%) (Auto) 54 % (31-73) Lymphocytes (%) (Auto) 39 % (24-48) Monocytes (%) (Auto) 7 % (0-9) Eosinophils (%) (Auto) 0 % (0-3) Basophils (%) (Auto) 0 % (0-3) Neutrophils # (Auto) 14.8 x10^3uL (1.8-7.7) Lymphocytes # (Auto) 10.7 x10^3/uL (1.0-4.8) Monocytes # (Auto) 1.9 x10^3/uL (0.0-1.1) Eosinophils # (Auto) 0.0 x10^3/uL (0.0-0.7) Basophils # (Auto) 0.0 x10^3/uL (0.0-0.2) Prothrombin Time 14.9 SEC (11.7-14.0) Prothromb Time International Ratio 1.2 (0.8-1.1) Sodium Level 142 mmol/L (136-145) Potassium Level 3.9 mmol/L (3.5-5.1) Chloride Level 107 mmol/L (98-107) Carbon Dioxide Level 27 mmol/L (21-32) Anion Gap 8 (6-14) Blood Urea Nitrogen 35 mg/dL (8-26) Creatinine 1.9 mg/dL (0.7-1.3) Estimated GFR (Cockcroft-Gault) 34.6 Glucose Level 109 mg/dL (70-99) Calcium Level 7.1 mg/dL (8.5-10.1) Phosphorus Level 4.2 mg/dL (2.6-4.7) Magnesium Level 1.7 mg/dL (1.8-2.4) O2 Saturation 98 % (92-99) Arterial Blood pH 7.41 (7.35-7.45) Arterial Blood pCO2 at Patient Temp 37 mmHg (35-46) Arterial Blood pO2 at Patient Temp 139 mmHg (65-108) Arterial Blood HCO3 23 mmol/L (21-28) Arterial Blood Base Excess -1 mmol/L (-3-3) FiO2 .65 Laboratory Tests Test 04/04/17 14:00 04/04/17 17:00 04/04/17 17:40 04/05/17 05:20 Hemoglobin 7.9 g/dL (13.0-17.5) 9.6 g/dL (13.0-17.5) 8.4 g/dL (13.0-17.5) Hematocrit 22.6 % (39.0-53.0) 28.5 % (39.0-53.0) 24.1 % (39.0-53.0) Mean Corpuscular Hemoglobin Concent 35 g/dL (31-37) 34 g/dL (31-37) 35 g/dL (31-37) Lactic Acid Level 1.8 mmol/L (0.4-2.0) Ionized Calcium 0.99 mmol/L (1.13-1.32) O2 Saturation 94 % (92-99) Arterial Blood pH 7.51 (7.35-7.45) Arterial Blood pCO2 at Patient Temp 17 mmHg (35-46) Arterial Blood pO2 at Patient Temp 71 mmHg (65-108) Arterial Blood HCO3 14 mmol/L (21-28) Arterial Blood Base Excess -9 mmol/L (-3-3) FiO2 90 White Blood Count 27.5 x10^3/uL (4.0-11.0) Red Blood Count 2.85 x10^6/uL (4.30-5.70) Mean Corpuscular Volume 85 fL (79-100) Mean Corpuscular Hemoglobin 30 pg (25-35) Red Cell Distribution Width 17.0 % (11.5-14.5) Platelet Count 160 x10^3/uL (140-400) Neutrophils (%) (Auto) 54 % (31-73) Lymphocytes (%) (Auto) 39 % (24-48) Monocytes (%) (Auto) 7 % (0-9) Eosinophils (%) (Auto) 0 % (0-3) Basophils (%) (Auto) 0 % (0-3) Neutrophils # (Auto) 14.8 x10^3uL (1.8-7.7) Lymphocytes # (Auto) 10.7 x10^3/uL (1.0-4.8) Monocytes # (Auto) 1.9 x10^3/uL (0.0-1.1) Eosinophils # (Auto) 0.0 x10^3/uL (0.0-0.7) Basophils # (Auto) 0.0 x10^3/uL (0.0-0.2) Prothrombin Time 14.9 SEC (11.7-14.0) Prothromb Time International Ratio 1.2 (0.8-1.1) Sodium Level 142 mmol/L (136-145) Potassium Level 3.9 mmol/L (3.5-5.1) Chloride Level 107 mmol/L (98-107) Carbon Dioxide Level 27 mmol/L (21-32) Anion Gap 8 (6-14) Blood Urea Nitrogen 35 mg/dL (8-26) Creatinine 1.9 mg/dL (0.7-1.3) Estimated GFR (Cockcroft-Gault) 34.6 Glucose Level 109 mg/dL (70-99) Calcium Level 7.1 mg/dL (8.5-10.1) Phosphorus Level 4.2 mg/dL (2.6-4.7) Magnesium Level 1.7 mg/dL (1.8-2.4) Test 04/05/17 08:00 O2 Saturation 98 % (92-99) Arterial Blood pH 7.41 (7.35-7.45) Arterial Blood pCO2 at Patient Temp 37 mmHg (35-46) Arterial Blood pO2 at Patient Temp 139 mmHg (65-108) Arterial Blood HCO3 23 mmol/L (21-28) Arterial Blood Base Excess -1 mmol/L (-3-3) FiO2 .65 Microbiology 04/03/17 Blood Culture - Preliminary, Resulted NO GROWTH AFTER 1 DAY 04/04/17 Gram Stain - Final, Complete Medications Current Medications Hydromorphone HCl (Dilaudid) 0.5 mg 1X ONCE IV Last administered on 04/02/17 03:31; Start 04/02/17 at 03:15; Stop 04/02/17 at 03:40; Status DC Ondansetron HCl (Zofran) 4 mg 1X ONCE IV Last administered on 04/02/17 03:31 ; Start 04/02/17 at 03:15; Stop 04/02/17 at 03:40; Status DC Sodium Chloride 1,000 ml @ 1,000 mls/hr 1X ONCE IV Last administered on 03:31; Start 04/02/17 at 03:15; Stop 04/02/17 at 04:14; Status DC Ondansetron HCl (Zofran) 4 mg PRN Q8HRS PRN IV NAUSEA/VOMITING Last administered on 04/02/17 16:23; Start 04/02/17 at 04:15; Stop 04/03/17 at 04:14 ; Status DC Fentanyl Citrate (Fentanyl 2ml Vial) 50 mcg PRN Q1HR PRN IV PAIN Last administered on 04/02/17 15:18; Start 04/02/17 at 04:15; Stop 04/03/17 at 04:14 ; Status DC Acetaminophen (Tylenol) 650 mg PRN Q4HRS PRN PO FEVER; Start 04/02/17 at 04:15 ; Stop 04/03/17 at 04:14; Status DC Phytonadione (Vitamin K) 2 mg 1X ONCE SQ Last administered on 04/02/17 15:25 ; Start 04/02/17 at 12:00; Stop 04/02/17 at 12:01; Status DC Hydromorphone HCl (Dilaudid) 1 mg PRN Q2HRS PRN IVP PAIN Last administered on 09:54; Start 04/02/17 at 16:15 Ondansetron HCl (Zofran) 4 mg PRN Q6HRS PRN IV NAUSEA/VOMITING; Start 04/03/17 at 08:30 Pantoprazole Sodium (Protonix) 40 mg DAILYAC PO ; Start 04/03/17 at 09:00; Stop 04/04/17 at 11:21; Status DC Albuterol Sulfate (Ventolin Hfa) 1 puff Q2HR PRN IH soa; Start 04/03/17 at 08: 30; Status UNV Amoxicillin/ Clavulanate Potassium (Augmentin 875/ 125mg) 1 tab BIDWMEALS PO Last administered on 04/03/17 18:12; Start 04/03/17 at 09:00; Stop 04/04/17 at 07:31; Status DC Nitroglycerin (Nitrostat) 0.4 mg PRN Q5MIN PRN SL cp; Start 04/03/17 at 08:30 Atorvastatin Calcium (Lipitor) 80 mg QHS PO Last administered on 04/04/17 21: 06; Start 04/03/17 at 21:00 Albuterol Sulfate (Ventolin Neb Soln) 2.5 mg PRN Q2HRS PRN NEB SHORTNESS OF BREATH Last administered on 04/05/17 11:01; Start 04/03/17 at 08:45 Sodium Chloride 1,000 ml @ 150 mls/hr Q6H40M IV Last administered on 08:17; Start 04/03/17 at 09:00 Sodium Chloride 1,000 ml @ 1,000 mls/hr 1X ONCE IV Last administered on 09:00; Start 04/03/17 at 09:00; Stop 04/03/17 at 09:59; Status DC Norepinephrine Bitartrate 250 ml @ 0 mls/hr CONT PRN IV SEE I/O RECORD Last administered on 04/05/17t 05:10; Start 04/03/17 at 11:00 Iohexol (Omnipaque 350 Mg/ml) 90 ml 1X ONCE IV Last administered on 04/03/17t 12:27; Start 04/03/17 at 12:15; Stop 04/03/17 at 12:16; Status DC Iohexol (Omnipaque 300 Mg/ml) 50 ml STK-MED ONCE .ROUTE ; Start 04/03/17 at 13: 27; Stop 04/03/17 at 13:28; Status DC Iohexol (Omnipaque 300 Mg/ml) 100 ml STK-MED ONCE .ROUTE ; Start 04/03/17 at 13: 27; Stop 04/03/17 at 13:28; Status DC Lidocaine/Sodium Bicarbonate (Buffered Lidocaine 1%) 20 ml STK-MED ONCE IJ ; Start 04/03/17 at 13:27; Stop 04/03/17 at 13:28; Status DC Heparin Sodium/ Sodium Chloride 1,500 ml @ As Directed STK-MED ONCE .ROUTE ; Start 04/03/17 at 13:28; Stop 04/03/17 at 13:29; Status DC Gelatin (Gelfoam Size 12-7mm) 1 each STK-MED ONCE .ROUTE ; Start 04/03/17 at 13 :52; Stop 04/03/17 at 13:53; Status DC Fentanyl Citrate (Fentanyl 2ml Vial) 100 mcg STK-MED ONCE .ROUTE ; Start at 13:54; Stop 04/03/17 at 13:55; Status DC Midazolam HCl (Versed) 2 mg STK-MED ONCE .ROUTE ; Start 04/03/17 at 13:54; Stop 04/03/17 at 13:55; Status DC Rocuronium [place] (Zemuron) 50 mg STK-MED ONCE .ROUTE ; Start 04/03/17 at 14:30 ; Stop 04/03/17 at 14:31; Status DC Propofol 20 ml @ As Directed STK-MED ONCE IV ; Start 04/03/17 at 14:30; Stop at 14:31; Status DC Succinylcholine Chloride (Anectine) 200 mg STK-MED ONCE .ROUTE ; Start 04/03/17 at 14:32; Stop 04/03/17 at 14:33; Status DC Iohexol (Omnipaque 300 Mg/ml) 100 ml STK-MED ONCE .ROUTE ; Start 04/03/17 at 14: 53; Stop 04/03/17 at 14:54; Status DC Propofol 100 ml @ As Directed STK-MED ONCE IV ; Start 04/03/17 at 15:16; Stop 04/03/17 at 15:17; Status DC Heparin Sodium/ Sodium Chloride 1,000 unit 1X ONCE IART Last administered on 16:46; Start 04/03/17 at 15:30; Stop 04/03/17 at 15:31; Status DC Lidocaine/Sodium Bicarbonate (Buffered Lidocaine 1%) 20 ml 1X ONCE IJ Last administered on 04/03/17 16:46; Start 04/03/17 at 15:30; Stop 04/03/17 at 15:31 ; Status DC Midazolam HCl (Versed) 1 mg 1X ONCE IV Last administered on 04/03/17 16:55; Start 04/03/17 at 14:00; Stop 04/03/17 at 15:23; Status DC Fentanyl Citrate (Fentanyl 2ml Vial) 50 mcg 1X ONCE IV Last administered on 16:56; Start 04/03/17 at 14:00; Stop 04/03/17 at 15:23; Status DC Iohexol (Omnipaque 300 Mg/ml) 100 ml 1X ONCE IART Last administered on 16:45; Start 04/03/17 at 15:30; Stop 04/03/17 at 15:31; Status DC Ondansetron HCl (Zofran) 4 mg 1X ONCE IV Last administered on 04/03/17 16:48 ; Start 04/03/17 at 14:08; Stop 04/03/17 at 15:23; Status DC Gelatin (Gelfoam Size 12-7mm) 1 each STK-MED ONCE .ROUTE ; Start 04/03/17 at 15 :41; Stop 04/03/17 at 15:42; Status DC Nitroglycerin (Nitroglycerin) 200 mcg 1X ONCE IART Last administered on 16:47; Start 04/03/17 at 16:15; Stop 04/03/17 at 16:16; Status DC Chlorhexidine Gluconate (Peridex) 15 ml BID MM Last administered on 04/05/17 08:15; Start 04/03/17 at 21:00 Propofol 100 ml @ 0 mls/hr CONT PRN IV SEE I/O RECORD; Start 04/03/17 at 17:15 Sodium Bicarbonate 100 meq 1X ONCE IV Last administered on 04/03/17 18:12; Start 04/03/17 at 18:00; Stop 04/03/17 at 18:01; Status DC Sodium Bicarbonate 100 meq 1X ONCE IV Last administered on 04/03/17 21:04; Start 04/03/17 at 20:15; Stop 04/03/17 at 20:16; Status DC Phenylephrine HCl 20 mg/Sodium Chloride 252 ml @ 0 mls/hr CONT PRN IV SEE I/O RECORD; Start 04/03/17 at 21:45 Sodium Chloride 1,000 ml @ 1,000 mls/hr 1X ONCE IV Last administered on 22:08; Start 04/03/17 at 21:45; Stop 04/03/17 at 22:44; Status DC Midazolam HCl 100 ml @ 0 mls/hr CONT PRN IV SEE I/O RECORD Last administered on 04/05/17 05:10; Start 04/03/17 at 21:45 Vancomycin HCl (Vanco Per Pharmacy) 1 each PRN DAILY PRN MC SEE COMMENTS Last administered on 04/03/17 22:01; Start 04/03/17 at 22:00; Stop 04/04/17 at 07:29 ; Status DC Piperacillin Sod/ Tazobactam Sod (Zosyn Per Pharmacy) 1 each PRN DAILY PRN MC SEE COMMENTS; Start 04/03/17 at 22:00; Stop 04/04/17 at 07:29; Status DC Vancomycin HCl 2 gm/Sodium Chloride 500 ml @ 250 mls/hr 1X ONCE IV Last administered on 04/03/17 22:09; Start 04/03/17 at 22:00; Stop 04/03/17 at 23:59 ; Status DC Piperacillin Sod/ Tazobactam Sod 4.5 gm/Sodium Chloride 100 ml @ 200 mls/hr Q6HRS IV Last administered on 04/04/17 05:37; Start 04/04/17 at 00:00; Stop at 07:29; Status DC Vancomycin HCl 1.25 gm/Sodium Chloride 250 ml @ 167 mls/hr Q12H IV ; Start at 10:00; Stop 04/04/17 at 10:00; Status DC Vancomycin HCl 1 each 1X ONCE MC ; Start 04/05/17 at 09:30; Stop 04/05/17 at 09 :31; Status Cancel Sodium Chloride 1,000 ml @ 1,000 mls/hr 1X ONCE IV Last administered on 23:27; Start 04/03/17 at 23:30; Stop 04/04/17 at 00:29; Status DC Sodium Chloride 500 ml @ 500 mls/hr 1X ONCE IV Last administered on 00:28; Start 04/04/17 at 00:30; Stop 04/04/17 at 01:30; Status DC Vancomycin HCl 1.5 gm/Sodium Chloride 500 ml @ 250 mls/hr Q24H IV ; Start 04/04 at 22:00; Stop 04/04/17 at 22:00; Status DC Piperacillin Sod/ Tazobactam Sod 2.25 gm/Sodium Chloride 50 ml @ 100 mls/hr Q6HRS IV Last administered on 04/05/17 05:10; Start 04/04/17 at 12:00 Lidocaine/Sodium Bicarbonate (Buffered Lidocaine 1%) 3 ml 1X ONCE IJ Last administered on 04/04/17 09:15; Start 04/04/17 at 09:15; Stop 04/04/17 at 09:16 ; Status DC Heparin Sodium/ Sodium Chloride 60 unit 1X ONCE IV Last administered on 09:51; Start 04/04/17 at 09:15; Stop 04/04/17 at 09:16; Status DC Heparin Sodium (Porcine) (Heparin Sodium) 10,000 unit STK-MED ONCE .ROUTE ; Start 04/04/17 at 09:17; Stop 04/04/17 at 09:18; Status DC Micafungin Sodium 100 mg/Dextrose 100 ml @ 100 mls/hr Q24H IV Last administered on 04/04/17 10:00; Start 04/04/17 at 10:00 Pantoprazole Sodium (Protonix Vial) 40 mg DAILYAC IVP Last administered on 04/05 08:15; Start 04/04/17 at 11:30 Lidocaine/Sodium Bicarbonate (Buffered Lidocaine 1%) 3 ml 1X ONCE IJ Last administered on 04/04/17 11:59; Start 04/04/17 at 11:30; Stop 04/04/17 at 11:31 ; Status DC Heparin Sodium/ Sodium Chloride 60 unit 1X ONCE IV Last administered on 11:59; Start 04/04/17 at 11:30; Stop 04/04/17 at 11:31; Status DC Heparin Sodium (Porcine) (Heparin Sodium) 2,500 unit 1X ONCE INT CAT Last administered on 04/04/17 11:58; Start 04/04/17 at 11:30; Stop 04/04/17 at 11:31 ; Status DC Heparin Sodium (Porcine) (Heparin Sodium) 10,000 unit STK-MED ONCE .ROUTE ; Start 04/04/17 at 11:33; Stop 04/04/17 at 11:34; Status DC Darbepoetin Shukri (Aranesp) 60 mcg [id number] SQ Last administered on 04/04/17 21 :06; Start 04/04/17 at 21:00 Phytonadione 10 mg/Sodium Chloride 51 ml @ 102 mls/hr 1X ONCE IV Last administered on 04/04/17 13:16; Start 04/04/17 at 13:00; Stop 04/04/17 at 13:29 ; Status DC Sodium Chloride 1,000 ml @ 1,000 mls/hr Q1H PRN IV hypotension; Start 04/04/17 at 13:26; Stop 04/04/17 at 19:25; Status DC Diphenhydramine HCl (Benadryl) 25 mg 1X PRN PRN IV ITCHING; Start 04/04/17 at 13:30; Stop 04/05/17 at 13:29 Diphenhydramine HCl (Benadryl) 25 mg 1X PRN PRN IV ITCHING; Start 04/04/17 at 13:30; Stop 04/05/17 at 13:29 Sodium Chloride (Normal Saline Flush) 10 ml 1X PRN PRN IV AP catheter pack; Start 04/04/17 at 13:30; Stop 04/05/17 at 13:29 Sodium Chloride (Normal Saline Flush) 10 ml 1X PRN PRN IV [employer] catheter pack; Start 04/04/17 at 13:30; Stop 04/05/17 at 13:29 Info (PHARMACY MONITORING -- do not chart) 1 each PRN DAILY PRN MC SEE COMMENTS ; Start 04/04/17 at 13:30 Active Scripts Active Reported Augmentin 875-125 Tablet (Amoxicillin/Potassium Clav) 1 Each Tablet 1 Tab PO BID Proair Hfa (Albuterol Sulfate) 8.5 Gm Hfa.aer.ad 9 Gm IH Proscar (Finasteride) 5 Mg Tablet 1 Tab PO DAILY NITROGLYCERIN SubLingual (Nitroglycerin) 0.4 Mg Tab.subl 1 Tab SL UD Coumadin (Warfarin Sodium) 3 Mg Tablet 1 Tab PO DAILY Proair Hfa Inhaler (Albuterol Sulfate) 8.5 Gm Hfa.aer.ad 1-2 Inh IH Q4-6 HRS PRN Lipitor (Atorvastatin Calcium) 80 Mg Tablet 80 Mg PO DAILY Vitals/I & O Vital Sign - Last 24 Hours 04/04/17 04/04/17 04/04/17 04/04/17 11:45 12:00 12:00 12:15 Temp 98.9 99.1 99.1 98.9 99.1 99.1 Pulse 98 98 98 Resp B/P (MAP) 153/65 (94) 137/53 (81) 109/58 (75) Pulse Ox 100 100 100 O2 Delivery Ventilator Ventilator Mechanical Ventilator Ventilator 04/04/17 04/04/17 04/04/17 04/04/17 12:16 12:30 12:45 13:00 Temp 98.8 98.8 Pulse 98 96 96 Resp B/P (MAP) 106/58 (74) 99/61 (74) 90/56 (67) Pulse Ox 100 100 100 100 O2 Delivery Ventilator Ventilator Ventilator Ventilator 04/04/17 04/04/17 04/04/17 04/04/17 13:10 13:15 13:30 13:45 Pulse 94 96 94 Resp B/P (MAP) 86/54 (65) 76/58 (64) 105/61 (76) Pulse Ox 100 100 100 100 O2 Delivery Ventilator Ventilator Ventilator Ventilator 04/04/17 04/04/17 04/04/1717 14:00 14:15 14:30 14:45 Pulse 92 94 98 102 Resp B/P (MAP) 106/58 (74) 96/59 (71) 118/70 (86) 105/82 (90) Pulse Ox 100 100 100 100 O2 Delivery Ventilator Ventilator Ventilator Ventilator 04/04/17 04/04/17 04/04/17 04/04/17 14:54 15:00 15:15 15:15 Temp 99.5 99.0 99.5 99.0 Pulse 108 100 100 101 Resp B/P (MAP) 85/56 109/68 (82) 118/74 (89) 118/74 Pulse Ox 100 100 O2 Delivery Ventilator Ventilator 04/04/17 04/04/17 04/04/17 04/04/17 15:30 15:45 16:00 16:00 Temp 99.6 99.0 99.6 99.0 Pulse 102 98 106 108 Resp B/P (MAP) 124/60 (81) 125/65 (85) 128/71 (90) 128/71 Pulse Ox 100 100 100 O2 Delivery Ventilator Ventilator Ventilator 04/04/17 04/04/17 04/04/17 04/04/17 16:00 16:01 16:15 16:30 Pulse 104 74 Resp B/P (MAP) 93/68 (76) 121/52 (75) Pulse Ox 100 100 100 O2 Delivery Mechanical Ventilator Ventilator Ventilator Ventilator 04/04/17 04/04/17 04/04/17 04/04/17 16:45 17:00 17:07 17:52 Pulse 74 73 Resp B/P (MAP) 105/60 (75) 145/63 (90) Pulse Ox 100 100 100 100 O2 Delivery Ventilator Ventilator Ventilator Ventilator 04/04/17 04/04/17 04/04/17 04/04/17 18:00 19:00 19:55 19:58 Pulse 69 72 Resp 22 22 B/P (MAP) 122/53 (76) 104/47 (66) Pulse Ox 100 100 100 O2 Delivery Ventilator Ventilator Mechanical Ventilator Ventilator 04/04/17 04/04/17 04/04/17 04/04/17 20:00 21:00 22:00 23:00 Temp 98.1 98.1 Pulse 101 105 107 102 Resp 22 20 20 20 B/P (MAP) 98/55 (69) 107/55 (72) 106/56 (73) 96/59 (71) Pulse Ox 100 100 100 100 O2 Delivery Ventilator Ventilator Ventilator Ventilator 04/04/17 04/05/17 04/05/17 04/05/17 23:18 00:00 00:00 01:00 Temp 100.1 100.1 Pulse 102 102 Resp 18 18 B/P (MAP) 106/55 (72) 106/55 (72) Pulse Ox 100 100 100 O2 Delivery Ventilator Ventilator Mechanical Ventilator Ventilator 04/05/17 04/05/17 04/05/17 04/05/17 01:15 01:30 02:00 02:30 Pulse 104 108 102 Resp 18 18 18 B/P (MAP) 97/50 (66) 111/64 (80) 110/86 (94) Pulse Ox 100 100 100 100 O2 Delivery Ventilator Ventilator Ventilator Ventilator 04/05/17 04/05/17 04/05/17 04/05/17 03:00 03:41 04:00 04:14 Temp 98.9 98.9 Pulse 102 104 83 Resp 20 20 20 B/P (MAP) 113/59 (77) 119/56 (77) 115/57 (76) Pulse Ox 100 100 100 100 O2 Delivery Ventilator Ventilator Ventilator Ventilator 04/05/17 04/05/17 04/05/17 04/05/17 04:16 05:00 05:47 06:00 Pulse 68 68 Resp 18 20 B/P (MAP) 111/51 (71) 142/58 (86) Pulse Ox 100 96 100 O2 Delivery Mechanical Ventilator Ventilator Ventilator Ventilator 04/05/17 04/05/17 04/05/17 04/05/17 07:16 07:30 07:58 08:18 Temp 97.8 97.8 Pulse 69 69 Resp 27 20 B/P (MAP) 111/54 (73) 100/52 (68) Pulse Ox 100 100 100 O2 Delivery Ventilator Ventilator Mechanical Ventilator Ventilator 04/05/17 04/05/17 04/05/17 04/05/17 08:30 08:45 08:52 09:00 Pulse 68 68 70 Resp 23 27 29 B/P (MAP) 108/53 (71) 105/56 (72) 116/59 (78) Pulse Ox 100 100 100 100 O2 Delivery Ventilator Ventilator Ventilator Ventilator 04/05/17 04/05/17 04/05/17 04/05/17 09:15 09:30 09:45 10:00 Pulse 70 68 72 68 Resp 30 24 22 27 B/P (MAP) 120/63 (82) 127/63 (84) 115/74 (88) 133/65 (87) Pulse Ox 100 100 100 100 O2 Delivery Ventilator Ventilator Ventilator Ventilator 04/05/17 04/05/17 04/05/17 04/05/17 10:05 10:54 11:02 11:33 Temp 98.5 98.5 Pulse 71 70 Resp 21 26 B/P (MAP) 133/65 (87) 123/60 (81) Pulse Ox 100 100 100 O2 Delivery Ventilator Ventilator Ventilator Mechanical Ventilator Intake and Output 04/04/17 04/04/17 04/05/17 15:00 23:00 07:00 Intake Total 50 ml 2127.0 ml 50 ml Output Total 120 ml 50 ml 320 ml Balance -70 ml 2077.0 ml -270 ml Nutrition Consultation Dietary Evaluation: Recommendations by RD: Increase Calorie Intake, PPN/TPN Comments: Rec. TPN once PICC is placed to meet nutrition needs (Dextrose 195 grams, Lipids 20 grams, Amino Acids 60 grams) Expected Outcomes/Goals: initiation of nutrition support Interpretation of weight loss: >10% in 6 months Malnutrition Findings: Food and Nutrition Intake (Mod: <75% est energy req 7days Reduced Ops Manager Strength: N/A Reduced Ops Manager Strength (Non-Sev: N/A Malnutrition related to morbid: No Weight Status: Overweight Fluid Accumulation (N/A): N/A KENDRICK MARADIAGA MD Apr 05, 2017 11:43
[2017-04-05] MEDS: MICAFUNGIN 100 MG in IV DEXTROSE 5% 100 ML IV SCH (11:57)
[2017-04-05 12:20] LABS: PLT ESTIMATE ADEQUATE (ADEQUATE)
[2017-04-05 12:57] LABS: HEMATOCRIT 23.9 % (39.0-53.0); RED BLOOD COUNT 2.79 x10^6/uL (4.30-5.70); RED CELL DISTRIBUTION WIDTH 16.8 % (11.5-14.5); WHITE BLOOD COUNT 24.6 x10^3/uL (4.0-11.0)
--- NOTE | 2017-04-05 13:27 | PDOC ---
CARDIO Progress Notes Date and Time Date of Service 04/05/2017 Time of Evaluation 1300 Subjective Subjective: No Chest Pain, Other (intubated) Vitals Vitals Vital Signs Date Time Temp Pulse Resp B/P (MAP) Pulse Ox O2 Delivery O2 Flow Rate FiO2 04/05/17 12:47 100 Ventilator 04/05/17 12:45 74 19 95/48 (64) 04/05/17 10:54 98.5 98.5 Weight Weight [ ] Input and Output Intake and Output Intake and Output 04/05/17 07:00 Intake Total 2227.0 ml Output Total 490 ml Balance 1737.0 ml IV Total 2227.0 ml Output Urine Total 490 ml # Bowel Movements 1 Laboratory Labs Laboratory Tests Test 04/04/17 14:00 04/04/17 17:00 04/04/17 17:40 04/05/17 05:20 Hemoglobin 7.9 g/dL (13.0-17.5) 9.6 g/dL (13.0-17.5) 8.4 g/dL (13.0-17.5) Hematocrit 22.6 % (39.0-53.0) 28.5 % (39.0-53.0) 24.1 % (39.0-53.0) Mean Corpuscular Hemoglobin Concent 35 g/dL (31-37) 34 g/dL (31-37) 35 g/dL (31-37) Lactic Acid Level 1.8 mmol/L (0.4-2.0) Ionized Calcium 0.99 mmol/L (1.13-1.32) O2 Saturation 94 % (92-99) Arterial Blood pH 7.51 (7.35-7.45) Arterial Blood pCO2 at Patient Temp 17 mmHg (35-46) Arterial Blood pO2 at Patient Temp 71 mmHg (65-108) Arterial Blood HCO3 14 mmol/L (21-28) Arterial Blood Base Excess -9 mmol/L (-3-3) FiO2 90 White Blood Count 27.5 x10^3/uL (4.0-11.0) Red Blood Count 2.85 x10^6/uL (4.30-5.70) Mean Corpuscular Volume 85 fL (79-100) Mean Corpuscular Hemoglobin 30 pg (25-35) Red Cell Distribution Width 17.0 % (11.5-14.5) Platelet Count 160 x10^3/uL (140-400) Neutrophils (%) (Auto) 54 % (31-73) Lymphocytes (%) (Auto) 39 % (24-48) Monocytes (%) (Auto) 7 % (0-9) Eosinophils (%) (Auto) 0 % (0-3) Basophils (%) (Auto) 0 % (0-3) Neutrophils # (Auto) 14.8 x10^3uL (1.8-7.7) Lymphocytes # (Auto) 10.7 x10^3/uL (1.0-4.8) Monocytes # (Auto) 1.9 x10^3/uL (0.0-1.1) Eosinophils # (Auto) 0.0 x10^3/uL (0.0-0.7) Basophils # (Auto) 0.0 x10^3/uL (0.0-0.2) Segmented Neutrophils % 51 % (35-66) Band Neutrophils % 9 % (0-9) Lymphocytes % 30 % (24-48) Monocytes % 10 % (0-10) Platelet Estimate Adequate (ADEQUATE) Prothrombin Time 14.9 SEC (11.7-14.0) Prothromb Time International Ratio 1.2 (0.8-1.1) Sodium Level 142 mmol/L (136-145) Potassium Level 3.9 mmol/L (3.5-5.1) Chloride Level 107 mmol/L (98-107) Carbon Dioxide Level 27 mmol/L (21-32) Anion Gap 8 (6-14) Blood Urea Nitrogen 35 mg/dL (8-26) Creatinine 1.9 mg/dL (0.7-1.3) Estimated GFR (Cockcroft-Gault) 34.6 Glucose Level 109 mg/dL (70-99) Calcium Level 7.1 mg/dL (8.5-10.1) Phosphorus Level 4.2 mg/dL (2.6-4.7) Magnesium Level 1.7 mg/dL (1.8-2.4) Test 04/05/17 08:00 04/05/17 12:00 O2 Saturation 98 % (92-99) Arterial Blood pH 7.41 (7.35-7.45) Arterial Blood pCO2 at Patient Temp 37 mmHg (35-46) Arterial Blood pO2 at Patient Temp 139 mmHg (65-108) Arterial Blood HCO3 23 mmol/L (21-28) Arterial Blood Base Excess -1 mmol/L (-3-3) FiO2 .65 White Blood Count 24.6 x10^3/uL (4.0-11.0) Red Blood Count 2.79 x10^6/uL (4.30-5.70) Hemoglobin 8.0 g/dL (13.0-17.5) Hematocrit 23.9 % (39.0-53.0) Mean Corpuscular Volume 86 fL (79-100) Mean Corpuscular Hemoglobin 29 pg (25-35) Mean Corpuscular Hemoglobin Concent 34 g/dL (31-37) Red Cell Distribution Width 16.8 % (11.5-14.5) Platelet Count 148 x10^3/uL (140-400) Microbiology Micro Microbiology 04/03/17 Blood Culture - Preliminary, Resulted NO GROWTH AFTER 1 DAY 04/04/17 Gram Stain - Final, Complete Review of Systems Constitutional: yes: no symptom reported Physical Exam HEENT: Neck Supple W Full Motion Chest: Symmetric LUNGS: Other (intubated with vent, diminiahed) Heart: S1S2, RRR (V paced with underlying atrial flutter), no gallops, no murmurs Abdomen: Soft N/T Extremities: No Calf Tenderness Neurology: other (sedated) Assessment Assessment 1. Retroperitoneal bleed: S/P embolization to right iliolumbar artery 2. Sepsis: ID on board 3. Acute Respiratory failure: likely aspiration upon vomiting. Intubated/vent pulmonary managing 4. Hx of PAFIB with coumadin therapy: V pacing with underlying atrial flutter 5. CAD: PCI/stent 2011. no cardiac symptoms prior to admission with good activity tolerance.. 6. 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 Hx of tachy-monse syndrome, Normal functioning device per interrogation, 100% pacing 7. Anemia: S/P FFP and PRBC, Hgb 6.9 to 8.0. Hemonc on board 8. MARTHA: HD per nephrology Recommendations 1. No further OAC/NOAC. Future stroke prevention measures would be ASA once Ok with others. 2. TTE was limited due to technical difficulty but noted with estimated EF of 55 % with normal LV systolic function. Continue vasopressor(levo), titrate as warranted. 3. Await MAC records. HR 60-70s controlled, Defer any AV jules blocking agents at this time. per spouse not on any antiarrhythmic drugs at home 4. Maintain supportive care. 5. Replace HENNA Campbell APRN Apr 05, 2017 13:27
[2017-04-05] MEDS: ATORVASTATIN CALCIUM 40 MG TABLET. PO SCH (21:05)
[2017-04-06] VITALS (36 sets, daily range): BP systolic 83–118; BP diastolic 47–63
[2017-04-06] MEDS: PIPERACILLIN/TAZOBACTAM 2.25 GM in IV NORMAL SALINE 50ML 50 ML IV SCH ×4 (00:13→18:05)
[2017-04-06] MEDS: IV NORMAL SALINE 1000ML BAG 1,000 ML IV SCH ×4 (04:32→20:35)
[2017-04-06 06:06] LABS: HEMATOCRIT 21.6 % (39.0-53.0); HEMOGLOBIN 7.3 g/dL (13.0-17.5)
[2017-04-06 06:11] LABS: CALCIUM 7.3 mg/dL (8.5-10.1); CREATININE 1.2 mg/dL (0.7-1.3); GFR 58.9; POTASSIUM 3.9 mmol/L (3.5-5.1)
[2017-04-06 06:53] LABS: INR 1.2 (0.8-1.1); PROTHROMBIN TIME PATIENT 14.5 SEC (11.7-14.0)
--- NOTE | 2017-04-06 07:41 | PDOC ---
PULMONARY PROGRESS NOTES Subjective on vent, peep5, fio2 80%, on levo 8, sedated, small ett secretion Vitals Vital Signs Date Time Temp Pulse Resp B/P (MAP) Pulse Ox O2 Delivery O2 Flow Rate FiO2 04/06/17 07:19 97.9 76 16 110/59 (76) 100 Ventilator 97.9 Comments ros as mentioned as above discussed w rn, other sys otherwise neg HEENT: Other (nc at perrl, orally intubated, nose clear, neck, no lap, thyromegaly) Lungs: Crackles, Other Cardiovascular: S1, S2 Abdomen: Soft, Non-tender, Other (no mass) Extremities: No Edema Skin: Warm Labs Laboratory Tests Test 04/04/17 09:00 04/04/17 09:14 04/04/17 10:25 04/04/17 11:15 White Blood Count 53.2 x10^3/uL (4.0-11.0) 36.5 x10^3/uL (4.0-11.0) Platelet Count 203 x10^3/uL (140-400) 190 x10^3/uL (140-400) O2 Saturation 98 % (92-99) Arterial Blood pH 7.34 (7.35-7.45) Arterial Blood pCO2 at Patient Temp 32 mmHg (35-46) Arterial Blood pO2 at Patient Temp 137 mmHg (65-108) Arterial Blood HCO3 17 mmol/L (21-28) Arterial Blood Base Excess -8 mmol/L (-3-3) FiO2 100 Red Blood Count 2.39 x10^6/uL (4.30-5.70) Hemoglobin 6.9 g/dL (13.0-17.5) Hematocrit 21.2 % (39.0-53.0) Mean Corpuscular Volume 88 fL (79-100) Mean Corpuscular Hemoglobin 29 pg (25-35) Mean Corpuscular Hemoglobin Concent 33 g/dL (31-37) Red Cell Distribution Width 15.6 % (11.5-14.5) Neutrophils (%) (Auto) 61 % (31-73) Lymphocytes (%) (Auto) 34 % (24-48) Monocytes (%) (Auto) 5 % (0-9) Eosinophils (%) (Auto) 0 % (0-3) Basophils (%) (Auto) 0 % (0-3) Neutrophils # (Auto) 22.1 x10^3uL (1.8-7.7) Lymphocytes # (Auto) 12.4 x10^3/uL (1.0-4.8) Monocytes # (Auto) 1.9 x10^3/uL (0.0-1.1) Eosinophils # (Auto) 0.0 x10^3/uL (0.0-0.7) Basophils # (Auto) 0.0 x10^3/uL (0.0-0.2) Sodium Level 142 mmol/L (136-145) Potassium Level 4.6 mmol/L (3.5-5.1) Chloride Level 109 mmol/L (98-107) Carbon Dioxide Level 21 mmol/L (21-32) Anion Gap 12 (6-14) Blood Urea Nitrogen 48 mg/dL (8-26) Creatinine 2.5 mg/dL (0.7-1.3) Estimated GFR (Cockcroft-Gault) 25.2 BUN/Creatinine Ratio 19 (6-20) Glucose Level 116 mg/dL (70-99) Calcium Level 6.7 mg/dL (8.5-10.1) Total Bilirubin 0.7 mg/dL (0.2-1.0) Aspartate Amino Transf (AST/SGOT) 41 U/L (15-37) Alanine Aminotransferase (ALT/SGPT) 28 U/L (16-63) Alkaline Phosphatase 60 U/L (46-116) Total Protein 5.0 g/dL (6.4-8.2) Albumin 1.9 g/dL (3.4-5.0) Albumin/Globulin Ratio 0.6 (1.0-1.7) Urine Collection Type Unknown Urine Color Yellow Urine Clarity Cloudy Urine pH 5.0 Urine Specific [place] >=1.030 Urine Protein 30 mg/dL (NEG-TRACE) Urine Glucose (UA) Negative mg/dL (NEG) Urine Ketones (Stick) Negative mg/dL (NEG) Urine Blood Moderate (NEG) Urine Nitrite Negative (NEG) Urine Bilirubin Negative (NEG) Urine Urobilinogen Dipstick 0.2 mg/dL (0.2 mg/dL) Urine Leukocyte Esterase Negative (NEG) Urine RBC 0 /HPF (0-2) Urine WBC 1-4 /HPF (0-4) Urine Transitional Epithelial Cells Mod /LPF Urine Amorphous Sediment Present /HPF Urine Bacteria 0 /HPF (0-FEW) Urine Mucus Slight /LPF Test 04/04/17 14:00 04/04/17 17:00 04/04/17 17:40 04/05/17 05:20 Hemoglobin 7.9 g/dL (13.0-17.5) 9.6 g/dL (13.0-17.5) 8.4 g/dL (13.0-17.5) Hematocrit 22.6 % (39.0-53.0) 28.5 % (39.0-53.0) 24.1 % (39.0-53.0) Mean Corpuscular Hemoglobin Concent 35 g/dL (31-37) 34 g/dL (31-37) 35 g/dL (31-37) Lactic Acid Level 1.8 mmol/L (0.4-2.0) Ionized Calcium 0.99 mmol/L (1.13-1.32) O2 Saturation 94 % (92-99) Arterial Blood pH 7.51 (7.35-7.45) Arterial Blood pCO2 at Patient Temp 17 mmHg (35-46) Arterial Blood pO2 at Patient Temp 71 mmHg (65-108) Arterial Blood HCO3 14 mmol/L (21-28) Arterial Blood Base Excess -9 mmol/L (-3-3) FiO2 90 White Blood Count 27.5 x10^3/uL (4.0-11.0) Red Blood Count 2.85 x10^6/uL (4.30-5.70) Mean Corpuscular Volume 85 fL (79-100) Mean Corpuscular Hemoglobin 30 pg (25-35) Red Cell Distribution Width 17.0 % (11.5-14.5) Platelet Count 160 x10^3/uL (140-400) Neutrophils (%) (Auto) 54 % (31-73) Lymphocytes (%) (Auto) 39 % (24-48) Monocytes (%) (Auto) 7 % (0-9) Eosinophils (%) (Auto) 0 % (0-3) Basophils (%) (Auto) 0 % (0-3) Neutrophils # (Auto) 14.8 x10^3uL (1.8-7.7) Lymphocytes # (Auto) 10.7 x10^3/uL (1.0-4.8) Monocytes # (Auto) 1.9 x10^3/uL (0.0-1.1) Eosinophils # (Auto) 0.0 x10^3/uL (0.0-0.7) Basophils # (Auto) 0.0 x10^3/uL (0.0-0.2) Segmented Neutrophils % 51 % (35-66) Band Neutrophils % 9 % (0-9) Lymphocytes % 30 % (24-48) Monocytes % 10 % (0-10) Platelet Estimate Adequate (ADEQUATE) Prothrombin Time 14.9 SEC (11.7-14.0) Prothromb Time International Ratio 1.2 (0.8-1.1) Sodium Level 142 mmol/L (136-145) Potassium Level 3.9 mmol/L (3.5-5.1) Chloride Level 107 mmol/L (98-107) Carbon Dioxide Level 27 mmol/L (21-32) Anion Gap 8 (6-14) Blood Urea Nitrogen 35 mg/dL (8-26) Creatinine 1.9 mg/dL (0.7-1.3) Estimated GFR (Cockcroft-Gault) 34.6 Glucose Level 109 mg/dL (70-99) Calcium Level 7.1 mg/dL (8.5-10.1) Phosphorus Level 4.2 mg/dL (2.6-4.7) Magnesium Level 1.7 mg/dL (1.8-2.4) Test 04/05/17 08:00 04/05/17 12:00 04/06/17 05:45 O2 Saturation 98 % (92-99) Arterial Blood pH 7.41 (7.35-7.45) Arterial Blood pCO2 at Patient Temp 37 mmHg (35-46) Arterial Blood pO2 at Patient Temp 139 mmHg (65-108) Arterial Blood HCO3 23 mmol/L (21-28) Arterial Blood Base Excess -1 mmol/L (-3-3) FiO2 .65 White Blood Count 24.6 x10^3/uL (4.0-11.0) Red Blood Count 2.79 x10^6/uL (4.30-5.70) Hemoglobin 8.0 g/dL (13.0-17.5) 7.3 g/dL (13.0-17.5) Hematocrit 23.9 % (39.0-53.0) 21.6 % (39.0-53.0) Mean Corpuscular Volume 86 fL (79-100) Mean Corpuscular Hemoglobin 29 pg (25-35) Mean Corpuscular Hemoglobin Concent 34 g/dL (31-37) 34 g/dL (31-37) Red Cell Distribution Width 16.8 % (11.5-14.5) Platelet Count 148 x10^3/uL (140-400) Prothrombin Time 14.5 SEC (11.7-14.0) Prothromb Time International Ratio 1.2 (0.8-1.1) Sodium Level 143 mmol/L (136-145) Potassium Level 3.9 mmol/L (3.5-5.1) Chloride Level 109 mmol/L (98-107) Carbon Dioxide Level 30 mmol/L (21-32) Anion Gap 4 (6-14) Blood Urea Nitrogen 28 mg/dL (8-26) Creatinine 1.2 mg/dL (0.7-1.3) Estimated GFR (Cockcroft-Gault) 58.9 Glucose Level 97 mg/dL (70-99) Calcium Level 7.3 mg/dL (8.5-10.1) Laboratory Tests Test 04/05/17 08:00 04/05/17 12:00 04/06/17 05:45 O2 Saturation 98 % (92-99) Arterial Blood pH 7.41 (7.35-7.45) Arterial Blood pCO2 at Patient Temp 37 mmHg (35-46) Arterial Blood pO2 at Patient Temp 139 mmHg (65-108) Arterial Blood HCO3 23 mmol/L (21-28) Arterial Blood Base Excess -1 mmol/L (-3-3) FiO2 .65 White Blood Count 24.6 x10^3/uL (4.0-11.0) Red Blood Count 2.79 x10^6/uL (4.30-5.70) Hemoglobin 8.0 g/dL (13.0-17.5) 7.3 g/dL (13.0-17.5) Hematocrit 23.9 % (39.0-53.0) 21.6 % (39.0-53.0) Mean Corpuscular Volume 86 fL (79-100) Mean Corpuscular Hemoglobin 29 pg (25-35) Mean Corpuscular Hemoglobin Concent 34 g/dL (31-37) 34 g/dL (31-37) Red Cell Distribution Width 16.8 % (11.5-14.5) Platelet Count 148 x10^3/uL (140-400) Prothrombin Time 14.5 SEC (11.7-14.0) Prothromb Time International Ratio 1.2 (0.8-1.1) Sodium Level 143 mmol/L (136-145) Potassium Level 3.9 mmol/L (3.5-5.1) Chloride Level 109 mmol/L (98-107) Carbon Dioxide Level 30 mmol/L (21-32) Anion Gap 4 (6-14) Blood Urea Nitrogen 28 mg/dL (8-26) Creatinine 1.2 mg/dL (0.7-1.3) Estimated GFR (Cockcroft-Gault) 58.9 Glucose Level 97 mg/dL (70-99) Calcium Level 7.3 mg/dL (8.5-10.1) Medications Active Scripts Medications Dose Route/Sig Max Daily Dose Days Date Category Augmentin 875-125 Tablet (Amoxicillin/Potassium Clav) 1 Each Tablet 1 Tab PO BID 01/03/17 Reported Proair Hfa (Albuterol Sulfate) 8.5 Gm Hfa.aer.ad 9 Gm IH 01/03/17 Reported Proscar (Finasteride) 5 Mg Tablet 1 Tab PO DAILY 01/03/17 Reported NITROGLYCERIN SubLingual (Nitroglycerin) 0.4 Mg Tab.subl 1 Tab SL UD 01/03/17 Reported Coumadin (Warfarin Sodium) 3 Mg Tablet 1 Tab PO DAILY 01/03/17 Reported Proair Hfa Inhaler (Albuterol Sulfate) 8.5 Gm Hfa.aer.ad 1-2 Inh IH Q4-6 HRS PRN 03/22/14 Reported Lipitor (Atorvastatin Calcium) 80 Mg Tablet 80 Mg PO DAILY 03/22/14 Reported Comments cxr 04/06, reviewed, b ll atelectasis worse, ett ok cxr 04/05, reviewed, There is rotation to the left. An endotracheal tube has its tip 6 cm above the kenn. A nasogastric tube has its tip below the inferior margin of the field of view. Right internal jugular central venous and hemodialysis catheters have their tips in the superior cavoatrial junction. A left-sided pacemaker has its leads in the right atrium and right ventricle. There is a small right pleural effusion with right basilar atelectasis. Impression . IMPRESSION: 1. Acute hypoxic respiratory failure, most likely related to acute lung injury/acute respiratory distress syndrome related to significant aspiration during the procedure. 2. Acute hemorrhagic shock resulting from retroperitoneal bleed while the patient has been on Coumadin with INR of 3.7 on admission that may have been precipitated by a fall. 3. History of asthma. 4. History of chronic atrial fibrillation. 5. Acute kidney injury related to acute tubular necrosis from shock. 6. Markedly elevated white cell count today. This could be related to leukemoid reaction versus septic shock. 7. Severe hypotension, combination of hemorrhagic hypovolemic and septic shock. 8. Severe protein-calorie malnutrition. 9. Lactic acidosis secondary to hypoperfusion from shock. 10. abnl cxr Plan . RECOMMENDATIONS: 1. Continue with present assist control mode. sedation stopped, will do sbt when more awake 2. Broad-spectrum antibiotics. 3. Follow white cell count. 4. Follow blood cultures. 5. elevate hob. 6. s/p 4 PRBC transfusion, 4 ffp. 7. Follow serial hemoglobin. 8. Closely watch renal function. 9. Bronchodilators. 10. Vitamin K and FFP as needed. 11. pressors to keep map 65 discussed w rn, rt, family DIANE KELLY MD Apr 06, 2017 07:41
[2017-04-06] MEDS: PANTOPRAZOLE IV PUSH 40 MG VIAL. IVP SCH (08:00)
[2017-04-06] MEDS: CHLORHEXIDINE 0.12% 15 ML MOUTHWASH. MM SCH ×2 (08:03→20:34)
--- NOTE | 2017-04-06 08:46 | PDOC ---
Infectious Disease Note Subjective Subjective Off sedation, unresponsive to verbal stimuli Remains intubated, FiO2 40% Hypotensive, Levophed now down to 6 mcg No fever last 24 hours + BM ROS ROS Unobtainable Vital Sign Vital Signs Vital Signs Date Time Temp Pulse Resp B/P (MAP) Pulse Ox O2 Delivery O2 Flow Rate FiO2 04/06/17 08:32 100 Ventilator 04/06/17 08:29 76 16 110/59 (76) 04/06/17 07:19 97.9 97.9 Physical Exam PHYSICAL EXAM GENERAL: Intubated. [place]. HEENT: ETT, NGT LUNGS: Diminished aeration bases HEART: S1S2, no gallop, no murmur. 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 RIJ/HDC. clean Labs Lab Laboratory Tests Test 04/05/17 12:00 04/06/17 05:45 White Blood Count 24.6 x10^3/uL (4.0-11.0) Red Blood Count 2.79 x10^6/uL (4.30-5.70) Hemoglobin 8.0 g/dL (13.0-17.5) 7.3 g/dL (13.0-17.5) Hematocrit 23.9 % (39.0-53.0) 21.6 % (39.0-53.0) Mean Corpuscular Volume 86 fL (79-100) Mean Corpuscular Hemoglobin 29 pg (25-35) Mean Corpuscular Hemoglobin Concent 34 g/dL (31-37) 34 g/dL (31-37) Red Cell Distribution Width 16.8 % (11.5-14.5) Platelet Count 148 x10^3/uL (140-400) Prothrombin Time 14.5 SEC (11.7-14.0) Prothromb Time International Ratio 1.2 (0.8-1.1) Sodium Level 143 mmol/L (136-145) Potassium Level 3.9 mmol/L (3.5-5.1) Chloride Level 109 mmol/L (98-107) Carbon Dioxide Level 30 mmol/L (21-32) Anion Gap 4 (6-14) Blood Urea Nitrogen 28 mg/dL (8-26) Creatinine 1.2 mg/dL (0.7-1.3) Estimated GFR (Cockcroft-Gault) 58.9 Glucose Level 97 mg/dL (70-99) Calcium Level 7.3 mg/dL (8.5-10.1) Micro SPUTUM CULT RES 1 Preliminary Gram negative rods BLOOD CULTURE Preliminary NO GROWTH AFTER 2 DAY Objective Assessment Sepsis vs SIRS - on Levophed Fever Leukocytosis, trending down Retroperitoneal bleed s/p 04/03 Selective/superselective right iliac arteriogram.Trans-microcatheter Gelfoam slurry and microcoil embolization of right iliolumbar artery Aspiration -vomiting 04/03. GNR MARTHA on HD Resp failure Levoflox allergy - tendon rupture/Bactrim allergy - sores Afib Plan Plan of Care Hold Vanc with MARTHA. last dose 04/03 Continue Zosyn and micafungin Await GNR ID CBC in am May need repeat Abd imaging Critically ill Attending Co-Sign The patient was seen and interviewed as well as examined at the bedside. The chart was reviewed. The case was discussed. Agree with the plan of care. LISSETH ONEIL APRN Apr 06, 2017 08:46 WILFRID AGUILAR MD Apr 06, 2017 12:05
--- NOTE | 2017-04-06 09:05 | RAD ---
EXAM: Chest one view. HISTORY: Renal failure, respiratory distress. COMPARISON: 04/05/2017. FINDINGS: A frontal view of the chest is obtained. An endotracheal tube has its tip 5 cm above the kenn. A nasogastric tube has its tip below the inferior margin of the field of view. A left-sided pacemaker has its leads in the right atrium and right ventricle. Right internal jugular hemodialysis and central venous catheters have their tips in the superior cavoatrial junction. There are small posteriorly layering pleural effusions bilaterally with associated atelectasis. There is no pneumothorax. The heart is not enlarged. There are atherosclerotic calcifications of the aorta. IMPRESSION: 1. Small bilateral posteriorly layering pleural effusions with associated atelectasis.
[2017-04-06] MEDS: MICAFUNGIN 100 MG in IV DEXTROSE 5% 100 ML IV SCH (09:35)
[2017-04-06] MEDS ORDERED: CALCIUM GLUCONATE 1,000 MG/10 ML VIAL. IVP ONE (11:30)
--- NOTE | 2017-04-06 11:38 | PDOC ---
Renal-Progress Notes Subjective Notes Notes REMAINS INTUBATED History of Present Illness Hx of present illness STABLE Vitals Vitals Vital Signs Date Time Temp Pulse Resp B/P (MAP) Pulse Ox O2 Delivery O2 Flow Rate FiO2 04/06/17 10:30 68 13 98/51 (67) 100 Ventilator 04/06/17 07:19 97.9 97.9 Weight Weight [ ] I.O. Intake and Output Intake and Output 04/06/17 07:00 Intake Total 3897 ml Output Total 630 ml Balance 3267 ml IV Total 3897 ml Output Urine Total 630 ml Labs Labs Laboratory Tests Test 04/05/17 12:00 04/06/17 05:45 04/06/17 10:14 White Blood Count 24.6 x10^3/uL (4.0-11.0) Red Blood Count 2.79 x10^6/uL (4.30-5.70) Hemoglobin 8.0 g/dL (13.0-17.5) 7.3 g/dL (13.0-17.5) Hematocrit 23.9 % (39.0-53.0) 21.6 % (39.0-53.0) Mean Corpuscular Volume 86 fL (79-100) Mean Corpuscular Hemoglobin 29 pg (25-35) Mean Corpuscular Hemoglobin Concent 34 g/dL (31-37) 34 g/dL (31-37) Red Cell Distribution Width 16.8 % (11.5-14.5) Platelet Count 148 x10^3/uL (140-400) Prothrombin Time 14.5 SEC (11.7-14.0) Prothromb Time International Ratio 1.2 (0.8-1.1) Sodium Level 143 mmol/L (136-145) Potassium Level 3.9 mmol/L (3.5-5.1) Chloride Level 109 mmol/L (98-107) Carbon Dioxide Level 30 mmol/L (21-32) Anion Gap 4 (6-14) Blood Urea Nitrogen 28 mg/dL (8-26) Creatinine 1.2 mg/dL (0.7-1.3) Estimated GFR (Cockcroft-Gault) 58.9 Glucose Level 97 mg/dL (70-99) Calcium Level 7.3 mg/dL (8.5-10.1) Ionized Calcium 1.12 mmol/L (1.13-1.32) Micro Micro Microbiology 04/03/17 Blood Culture - Preliminary, Resulted NO GROWTH AFTER 2 DAYS 04/04/17 Gram Stain - Final, Complete Review of Systems Constitutional: yes: no symptom reported Physical Exam General Appearance: no apparent distress Respiratory: bilateral CTA Heart: S1S2 Abdomen: soft, bowel sounds present Extremities: pulses present Neurology: other (sedated) Musculoskeletal: Osteoarthritis Assessment Assessment IMP MARTHA-UO 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
[2017-04-06 12:54] LABS: HEMATOCRIT 21.2 % (39.0-53.0); HEMOGLOBIN 7.1 g/dL (13.0-17.5)
--- NOTE | 2017-04-06 12:54 | PDOC ---
PROGRESS NOTES Chief Complaint Chief Complaint cc: retroperitoneal bleed A/P 1. Retroperitoneal bleed: S/P microcoil embolization of right iliolumbar artery : hemoglobin stable. IR following. 2. Acute anemia of blood loss from above: s/p PRBC AND S/P FFP, monitor hemoglobin, transfuse 1PRBC Today. 3. Coumadin coagulopathy: INR 1.2, Hold Coumadin. 4. Septic shock possible aspiration: On zosyn and micafungin, ID following. 5, Acute respiratory failure on mechanical ventilation,: Daily CXR, pulmonology following. off sedation, 6. Shock: on Levophed: Continue IV hydration, 7. Chronic lumbago, hypothyroidism, 8. Renal failure: Temp HD catheter and HD, Cr improving. 9. Afib, pacemaker on Coumadin: holding Coumadin, pacer in situ 10. condition:critical, prognosis poor/ guarded. CC Total time 3 5 min, no family at bedside today. Vitals Vitals Vital Signs Date Time Temp Pulse Resp B/P (MAP) Pulse Ox O2 Delivery O2 Flow Rate FiO2 04/06/17 12:27 Mechanical Ventilator 04/06/17 12:00 72 11 96/54 (68) 100 04/06/17 11:00 98.5 98.5 Physical Exam General: Other (off sedation, non verbal) Heart: Regular rate, Normal S1, Normal S2 Lungs: Clear, Other Abdomen: Normal bowel sounds, Other (less distention) Extremities: No clubbing, No cyanosis, No edema Skin: Other (no bruising) Labs LABS Laboratory Tests Test 04/06/17 05:45 04/06/17 10:14 Hemoglobin 7.3 g/dL (13.0-17.5) Hematocrit 21.6 % (39.0-53.0) Mean Corpuscular Hemoglobin Concent 34 g/dL (31-37) Prothrombin Time 14.5 SEC (11.7-14.0) Prothromb Time International Ratio 1.2 (0.8-1.1) Sodium Level 143 mmol/L (136-145) Potassium Level 3.9 mmol/L (3.5-5.1) Chloride Level 109 mmol/L (98-107) Carbon Dioxide Level 30 mmol/L (21-32) Anion Gap 4 (6-14) Blood Urea Nitrogen 28 mg/dL (8-26) Creatinine 1.2 mg/dL (0.7-1.3) Estimated GFR (Cockcroft-Gault) 58.9 Glucose Level 97 mg/dL (70-99) Calcium Level 7.3 mg/dL (8.5-10.1) Ionized Calcium 1.12 mmol/L (1.13-1.32) Assessment and Plan Assessmemt and Plan Problems Medical Problems: (1) Anticoagulated Status: Acute (2) Retroperitoneal bleed Status: Acute Problems: Comment Review of Relevant I have reviewed the following items sarbjit (where applicable) has been applied. Labs Laboratory Tests Test 04/04/17 14:00 04/04/17 17:00 04/04/17 17:40 04/05/17 05:20 Hemoglobin 7.9 g/dL (13.0-17.5) 9.6 g/dL (13.0-17.5) 8.4 g/dL (13.0-17.5) Hematocrit 22.6 % (39.0-53.0) 28.5 % (39.0-53.0) 24.1 % (39.0-53.0) Mean Corpuscular Hemoglobin Concent 35 g/dL (31-37) 34 g/dL (31-37) 35 g/dL (31-37) Lactic Acid Level 1.8 mmol/L (0.4-2.0) Ionized Calcium 0.99 mmol/L (1.13-1.32) O2 Saturation 94 % (92-99) Arterial Blood pH 7.51 (7.35-7.45) Arterial Blood pCO2 at Patient Temp 17 mmHg (35-46) Arterial Blood pO2 at Patient Temp 71 mmHg (65-108) Arterial Blood HCO3 14 mmol/L (21-28) Arterial Blood Base Excess -9 mmol/L (-3-3) FiO2 90 White Blood Count 27.5 x10^3/uL (4.0-11.0) Red Blood Count 2.85 x10^6/uL (4.30-5.70) Mean Corpuscular Volume 85 fL (79-100) Mean Corpuscular Hemoglobin 30 pg (25-35) Red Cell Distribution Width 17.0 % (11.5-14.5) Platelet Count 160 x10^3/uL (140-400) Neutrophils (%) (Auto) 54 % (31-73) Lymphocytes (%) (Auto) 39 % (24-48) Monocytes (%) (Auto) 7 % (0-9) Eosinophils (%) (Auto) 0 % (0-3) Basophils (%) (Auto) 0 % (0-3) Neutrophils # (Auto) 14.8 x10^3uL (1.8-7.7) Lymphocytes # (Auto) 10.7 x10^3/uL (1.0-4.8) Monocytes # (Auto) 1.9 x10^3/uL (0.0-1.1) Eosinophils # (Auto) 0.0 x10^3/uL (0.0-0.7) Basophils # (Auto) 0.0 x10^3/uL (0.0-0.2) Segmented Neutrophils % 51 % (35-66) Band Neutrophils % 9 % (0-9) Lymphocytes % 30 % (24-48) Monocytes % 10 % (0-10) Platelet Estimate Adequate (ADEQUATE) Prothrombin Time 14.9 SEC (11.7-14.0) Prothromb Time International Ratio 1.2 (0.8-1.1) Sodium Level 142 mmol/L (136-145) Potassium Level 3.9 mmol/L (3.5-5.1) Chloride Level 107 mmol/L (98-107) Carbon Dioxide Level 27 mmol/L (21-32) Anion Gap 8 (6-14) Blood Urea Nitrogen 35 mg/dL (8-26) Creatinine 1.9 mg/dL (0.7-1.3) Estimated GFR (Cockcroft-Gault) 34.6 Glucose Level 109 mg/dL (70-99) Calcium Level 7.1 mg/dL (8.5-10.1) Phosphorus Level 4.2 mg/dL (2.6-4.7) Magnesium Level 1.7 mg/dL (1.8-2.4) Test 04/05/17 08:00 04/05/17 12:00 04/06/17 05:45 04/06/17 10:14 O2 Saturation 98 % (92-99) Arterial Blood pH 7.41 (7.35-7.45) Arterial Blood pCO2 at Patient Temp 37 mmHg (35-46) Arterial Blood pO2 at Patient Temp 139 mmHg (65-108) Arterial Blood HCO3 23 mmol/L (21-28) Arterial Blood Base Excess -1 mmol/L (-3-3) FiO2 .65 White Blood Count 24.6 x10^3/uL (4.0-11.0) Red Blood Count 2.79 x10^6/uL (4.30-5.70) Hemoglobin 8.0 g/dL (13.0-17.5) 7.3 g/dL (13.0-17.5) Hematocrit 23.9 % (39.0-53.0) 21.6 % (39.0-53.0) Mean Corpuscular Volume 86 fL (79-100) Mean Corpuscular Hemoglobin 29 pg (25-35) Mean Corpuscular Hemoglobin Concent 34 g/dL (31-37) 34 g/dL (31-37) Red Cell Distribution Width 16.8 % (11.5-14.5) Platelet Count 148 x10^3/uL (140-400) Prothrombin Time 14.5 SEC (11.7-14.0) Prothromb Time International Ratio 1.2 (0.8-1.1) Sodium Level 143 mmol/L (136-145) Potassium Level 3.9 mmol/L (3.5-5.1) Chloride Level 109 mmol/L (98-107) Carbon Dioxide Level 30 mmol/L (21-32) Anion Gap 4 (6-14) Blood Urea Nitrogen 28 mg/dL (8-26) Creatinine 1.2 mg/dL (0.7-1.3) Estimated GFR (Cockcroft-Gault) 58.9 Glucose Level 97 mg/dL (70-99) Calcium Level 7.3 mg/dL (8.5-10.1) Ionized Calcium 1.12 mmol/L (1.13-1.32) Laboratory Tests Test 04/06/17 05:45 04/06/17 10:14 Hemoglobin 7.3 g/dL (13.0-17.5) Hematocrit 21.6 % (39.0-53.0) Mean Corpuscular Hemoglobin Concent 34 g/dL (31-37) Prothrombin Time 14.5 SEC (11.7-14.0) Prothromb Time International Ratio 1.2 (0.8-1.1) Sodium Level 143 mmol/L (136-145) Potassium Level 3.9 mmol/L (3.5-5.1) Chloride Level 109 mmol/L (98-107) Carbon Dioxide Level 30 mmol/L (21-32) Anion Gap 4 (6-14) Blood Urea Nitrogen 28 mg/dL (8-26) Creatinine 1.2 mg/dL (0.7-1.3) Estimated GFR (Cockcroft-Gault) 58.9 Glucose Level 97 mg/dL (70-99) Calcium Level 7.3 mg/dL (8.5-10.1) Ionized Calcium 1.12 mmol/L (1.13-1.32) Microbiology 04/03/17 Blood Culture - Preliminary, Resulted NO GROWTH AFTER 2 DAYS 04/04/17 Gram Stain - Final, Complete Medications Current Medications Hydromorphone HCl (Dilaudid) 0.5 mg 1X ONCE IV Last administered on 04/02/17 03:31; Start 04/02/17 at 03:15; Stop 04/02/17 at 03:40; Status DC Ondansetron HCl (Zofran) 4 mg 1X ONCE IV Last administered on 04/02/17 03:31 ; Start 04/02/17 at 03:15; Stop 04/02/17 at 03:40; Status DC Sodium Chloride 1,000 ml @ 1,000 mls/hr 1X ONCE IV Last administered on 03:31; Start 04/02/17 at 03:15; Stop 04/02/17 at 04:14; Status DC Ondansetron HCl (Zofran) 4 mg PRN Q8HRS PRN IV NAUSEA/VOMITING Last administered on 04/02/17 16:23; Start 04/02/17 at 04:15; Stop 04/03/17 at 04:14 ; Status DC Fentanyl Citrate (Fentanyl 2ml Vial) 50 mcg PRN Q1HR PRN IV PAIN Last administered on 04/02/17 15:18; Start 04/02/17 at 04:15; Stop 04/03/17 at 04:14 ; Status DC Acetaminophen (Tylenol) 650 mg PRN Q4HRS PRN PO FEVER; Start 04/02/17 at 04:15 ; Stop 04/03/17 at 04:14; Status DC Phytonadione (Vitamin K) 2 mg 1X ONCE SQ Last administered on 04/02/17 15:25 ; Start 04/02/17 at 12:00; Stop 04/02/17 at 12:01; Status DC Hydromorphone HCl (Dilaudid) 1 mg PRN Q2HRS PRN IVP PAIN Last administered on 09:54; Start 04/02/17 at 16:15 Ondansetron HCl (Zofran) 4 mg PRN Q6HRS PRN IV NAUSEA/VOMITING; Start 04/03/17 at 08:30 Pantoprazole Sodium (Protonix) 40 mg DAILYAC PO ; Start 04/03/17 at 09:00; Stop 04/04/17 at 11:21; Status DC Albuterol Sulfate (Ventolin Hfa) 1 puff Q2HR PRN IH soa; Start 04/03/17 at 08: 30; Status UNV Amoxicillin/ Clavulanate Potassium (Augmentin 875/ 125mg) 1 tab BIDWMEALS PO Last administered on 04/03/17 18:12; Start 04/03/17 at 09:00; Stop 04/04/17 at 07:31; Status DC Nitroglycerin (Nitrostat) 0.4 mg PRN Q5MIN PRN SL cp; Start 04/03/17 at 08:30 Atorvastatin Calcium (Lipitor) 80 mg QHS PO Last administered on 04/05/17 21: 05; Start 04/03/17 at 21:00 Albuterol Sulfate (Ventolin Neb Soln) 2.5 mg PRN Q2HRS PRN NEB SHORTNESS OF BREATH Last administered on 04/05/17 20:01; Start 04/03/17 at 08:45 Sodium Chloride 1,000 ml @ 150 mls/hr Q6H40M IV Last administered on 08:04; Start 04/03/17 at 09:00 Sodium Chloride 1,000 ml @ 1,000 mls/hr 1X ONCE IV Last administered on 09:00; Start 04/03/17 at 09:00; Stop 04/03/17 at 09:59; Status DC Norepinephrine Bitartrate 250 ml @ 0 mls/hr CONT PRN IV SEE I/O RECORD Last administered on 6/17/17at 17:14; Start 04/03/17 at 11:00 Iohexol (Omnipaque 350 Mg/ml) 90 ml 1X ONCE IV Last administered on 04/03/17t 12:27; Start 04/03/17 at 12:15; Stop 04/03/17 at 12:16; Status DC Iohexol (Omnipaque 300 Mg/ml) 50 ml STK-MED ONCE .ROUTE ; Start 04/03/17 at 13: 27; Stop 04/03/17 at 13:28; Status DC Iohexol (Omnipaque 300 Mg/ml) 100 ml STK-MED ONCE .ROUTE ; Start 04/03/17 at 13: 27; Stop 04/03/17 at 13:28; Status DC Lidocaine/Sodium Bicarbonate (Buffered Lidocaine 1%) 20 ml STK-MED ONCE IJ ; Start 04/03/17 at 13:27; Stop 04/03/17 at 13:28; Status DC Heparin Sodium/ Sodium Chloride 1,500 ml @ As Directed STK-MED ONCE .ROUTE ; Start 04/03/17 at 13:28; Stop 04/03/17 at 13:29; Status DC Gelatin (Gelfoam Size 12-7mm) 1 each STK-MED ONCE .ROUTE ; Start 04/03/17 at 13 :52; Stop 04/03/17 at 13:53; Status DC Fentanyl Citrate (Fentanyl 2ml Vial) 100 mcg STK-MED ONCE .ROUTE ; Start at 13:54; Stop 04/03/17 at 13:55; Status DC Midazolam HCl (Versed) 2 mg STK-MED ONCE .ROUTE ; Start 04/03/17 at 13:54; Stop 04/03/17 at 13:55; Status DC Rocuronium Haslet (Zemuron) 50 mg STK-MED ONCE .ROUTE ; Start 04/03/17 at 14:30 ; Stop 04/03/17 at 14:31; Status DC Propofol 20 ml @ As Directed STK-MED ONCE IV ; Start 04/03/17 at 14:30; Stop at 14:31; Status DC Succinylcholine Chloride (Anectine) 200 mg STK-MED ONCE .ROUTE ; Start 04/03/17 at 14:32; Stop 04/03/17 at 14:33; Status DC Iohexol (Omnipaque 300 Mg/ml) 100 ml STK-MED ONCE .ROUTE ; Start 04/03/17 at 14: 53; Stop 04/03/17 at 14:54; Status DC Propofol 100 ml @ As Directed STK-MED ONCE IV ; Start 04/03/17 at 15:16; Stop 04/03/17 at 15:17; Status DC Heparin Sodium/ Sodium Chloride 1,000 unit 1X ONCE IART Last administered on 16:46; Start 04/03/17 at 15:30; Stop 04/03/17 at 15:31; Status DC Lidocaine/Sodium Bicarbonate (Buffered Lidocaine 1%) 20 ml 1X ONCE IJ Last administered on 04/03/17 16:46; Start 04/03/17 at 15:30; Stop 04/03/17 at 15:31 ; Status DC Midazolam HCl (Versed) 1 mg 1X ONCE IV Last administered on 04/03/17 16:55; Start 04/03/17 at 14:00; Stop 04/03/17 at 15:23; Status DC Fentanyl Citrate (Fentanyl 2ml Vial) 50 mcg 1X ONCE IV Last administered on 16:56; Start 04/03/17 at 14:00; Stop 04/03/17 at 15:23; Status DC Iohexol (Omnipaque 300 Mg/ml) 100 ml 1X ONCE IART Last administered on 16:45; Start 04/03/17 at 15:30; Stop 04/03/17 at 15:31; Status DC Ondansetron HCl (Zofran) 4 mg 1X ONCE IV Last administered on 04/03/17 16:48 ; Start 04/03/17 at 14:08; Stop 04/03/17 at 15:23; Status DC Gelatin (Gelfoam Size 12-7mm) 1 each STK-MED ONCE .ROUTE ; Start 04/03/17 at 15 :41; Stop 04/03/17 at 15:42; Status DC Nitroglycerin (Nitroglycerin) 200 mcg 1X ONCE IART Last administered on 16:47; Start 04/03/17 at 16:15; Stop 04/03/17 at 16:16; Status DC Chlorhexidine Gluconate (Peridex) 15 ml BID MM Last administered on 04/06/17 08:03; Start 04/03/17 at 21:00 Propofol 100 ml @ 0 mls/hr CONT PRN IV SEE I/O RECORD; Start 04/03/17 at 17:15 Sodium Bicarbonate 100 meq 1X ONCE IV Last administered on 04/03/17 18:12; Start 04/03/17 at 18:00; Stop 04/03/17 at 18:01; Status DC Sodium Bicarbonate 100 meq 1X ONCE IV Last administered on 04/03/17 21:04; Start 04/03/17 at 20:15; Stop 04/03/17 at 20:16; Status DC Phenylephrine HCl 20 mg/Sodium Chloride 252 ml @ 0 mls/hr CONT PRN IV SEE I/O RECORD; Start 04/03/17 at 21:45 Sodium Chloride 1,000 ml @ 1,000 mls/hr 1X ONCE IV Last administered on 22:08; Start 04/03/17 at 21:45; Stop 04/03/17 at 22:44; Status DC Midazolam HCl 100 ml @ 0 mls/hr CONT PRN IV SEE I/O RECORD Last administered on 04/05/17 23:06; Start 04/03/17 at 21:45 Vancomycin HCl (Vanco Per Pharmacy) 1 each PRN DAILY PRN MC SEE COMMENTS Last administered on 04/03/17 22:01; Start 04/03/17 at 22:00; Stop 04/04/17 at 07:29 ; Status DC Piperacillin Sod/ Tazobactam Sod (Zosyn Per Pharmacy) 1 each PRN DAILY PRN MC SEE COMMENTS; Start 04/03/17 at 22:00; Stop 04/04/17 at 07:29; Status DC Vancomycin HCl 2 gm/Sodium Chloride 500 ml @ 250 mls/hr 1X ONCE IV Last administered on 04/03/17 22:09; Start 04/03/17 at 22:00; Stop 04/03/17 at 23:59 ; Status DC Piperacillin Sod/ Tazobactam Sod 4.5 gm/Sodium Chloride 100 ml @ 200 mls/hr Q6HRS IV Last administered on 04/04/17 05:37; Start 04/04/17 at 00:00; Stop at 07:29; Status DC Vancomycin HCl 1.25 gm/Sodium Chloride 250 ml @ 167 mls/hr Q12H IV ; Start at 10:00; Stop 04/04/17 at 10:00; Status DC Vancomycin HCl 1 each 1X ONCE MC ; Start 04/05/17 at 09:30; Stop 04/05/17 at 09 :31; Status Cancel Sodium Chloride 1,000 ml @ 1,000 mls/hr 1X ONCE IV Last administered on 23:27; Start 04/03/17 at 23:30; Stop 04/04/17 at 00:29; Status DC Sodium Chloride 500 ml @ 500 mls/hr 1X ONCE IV Last administered on 00:28; Start 04/04/17 at 00:30; Stop 04/04/17 at 01:30; Status DC Vancomycin HCl 1.5 gm/Sodium Chloride 500 ml @ 250 mls/hr Q24H IV ; Start 04/04 at 22:00; Stop 04/04/17 at 22:00; Status DC Piperacillin Sod/ Tazobactam Sod 2.25 gm/Sodium Chloride 50 ml @ 100 mls/hr Q6HRS IV Last administered on 04/06/17 12:13; Start 04/04/17 at 12:00 Lidocaine/Sodium Bicarbonate (Buffered Lidocaine 1%) 3 ml 1X ONCE IJ Last administered on 04/04/17 09:15; Start 04/04/17 at 09:15; Stop 04/04/17 at 09:16 ; Status DC Heparin Sodium/ Sodium Chloride 60 unit 1X ONCE IV Last administered on 09:51; Start 04/04/17 at 09:15; Stop 04/04/17 at 09:16; Status DC Heparin Sodium (Porcine) (Heparin Sodium) 10,000 unit STK-MED ONCE .ROUTE ; Start 04/04/17 at 09:17; Stop 04/04/17 at 09:18; Status DC Micafungin Sodium 100 mg/Dextrose 100 ml @ 100 mls/hr Q24H IV Last administered on 04/06/17 09:35; Start 04/04/17 at 10:00 Pantoprazole Sodium (Protonix Vial) 40 mg DAILYAC IVP Last administered on 04/06 08:00; Start 04/04/17 at 11:30 Lidocaine/Sodium Bicarbonate (Buffered Lidocaine 1%) 3 ml 1X ONCE IJ Last administered on 04/04/17 11:59; Start 04/04/17 at 11:30; Stop 04/04/17 at 11:31 ; Status DC Heparin Sodium/ Sodium Chloride 60 unit 1X ONCE IV Last administered on 11:59; Start 04/04/17 at 11:30; Stop 04/04/17 at 11:31; Status DC Heparin Sodium (Porcine) (Heparin Sodium) 2,500 unit 1X ONCE INT CAT Last administered on 04/04/17 11:58; Start 04/04/17 at 11:30; Stop 04/04/17 at 11:31 ; Status DC Heparin Sodium (Porcine) (Heparin Sodium) 10,000 unit STK-MED ONCE .ROUTE ; Start 04/04/17 at 11:33; Stop 04/04/17 at 11:34; Status DC Darbepoetin Shukri (Aranesp) 60 mcg [id number] SQ Last administered on 04/04/17 21 :06; Start 04/04/17 at 21:00 Phytonadione 10 mg/Sodium Chloride 51 ml @ 102 mls/hr 1X ONCE IV Last administered on 04/04/17 13:16; Start 04/04/17 at 13:00; Stop 04/04/17 at 13:29 ; Status DC Sodium Chloride 1,000 ml @ 1,000 mls/hr Q1H PRN IV hypotension; Start 04/04/17 at 13:26; Stop 04/04/17 at 19:25; Status DC Diphenhydramine HCl (Benadryl) 25 mg 1X PRN PRN IV ITCHING; Start 04/04/17 at 13:30; Stop 04/05/17 at 13:29; Status DC Diphenhydramine HCl (Benadryl) 25 mg 1X PRN PRN IV ITCHING; Start 04/04/17 at 13:30; Stop 04/05/17 at 13:29; Status DC Sodium Chloride (Normal Saline Flush) 10 ml 1X PRN PRN IV AP catheter pack; Start 04/04/17 at 13:30; Stop 04/05/17 at 13:29; Status DC Sodium Chloride (Normal Saline Flush) 10 ml 1X PRN PRN IV BILLIARD TABLE REPAIRER catheter pack; Start 04/04/17 at 13:30; Stop 04/05/17 at 13:29; Status DC Info (PHARMACY MONITORING -- do not chart) 1 each PRN DAILY PRN MC SEE COMMENTS ; Start 04/04/17 at 13:30 Calcium Gluconate (Calcium Gluconate) 1,000 mg 1X ONCE IVP Last administered on 04/06/17t 11:17; Start 04/06/17 at 11:30; Stop 04/06/17 at 11:31; Status DC Active Scripts Active Reported Augmentin 875-125 Tablet (Amoxicillin/Potassium Clav) 1 Each Tablet 1 Tab PO BID Proair Hfa (Albuterol Sulfate) 8.5 Gm Hfa.aer.ad 9 Gm IH Proscar (Finasteride) 5 Mg Tablet 1 Tab PO DAILY NITROGLYCERIN SubLingual (Nitroglycerin) 0.4 Mg Tab.subl 1 Tab SL UD Coumadin (Warfarin Sodium) 3 Mg Tablet 1 Tab PO DAILY Proair Hfa Inhaler (Albuterol Sulfate) 8.5 Gm Hfa.aer.ad 1-2 Inh IH Q4-6 HRS PRN Lipitor (Atorvastatin Calcium) 80 Mg Tablet 80 Mg PO DAILY Vitals/I & O Vital Sign - Last 24 Hours 04/05/17 04/05/17 04/05/17 04/05/17 13:00 13:15 13:30 13:45 Pulse 76 68 74 68 Resp 27 26 26 27 B/P (MAP) 107/55 (72) 106/50 (68) 108/55 (72) 103/56 (72) Pulse Ox 100 100 100 100 O2 Delivery Ventilator Ventilator Ventilator Ventilator 04/05/17 04/05/17 04/05/17 04/05/17 14:00 14:15 14:30 14:45 Pulse 69 68 68 76 Resp 30 28 30 28 B/P (MAP) 106/57 (73) 104/52 (69) 85/43 (57) 100/61 (74) Pulse Ox 100 100 100 100 O2 Delivery Ventilator Ventilator Ventilator Ventilator 04/05/17 04/05/17 04/05/17 04/05/17 14:54 15:00 15:15 15:45 Pulse 68 72 Resp 20 18 B/P (MAP) 100/54 (69) 97/50 (66) Pulse Ox 100 100 100 O2 Delivery Ventilator Ventilator Ventilator Mechanical Ventilator 04/05/17 04/05/17 04/05/17 04/05/17 15:45 16:00 16:15 16:30 Pulse 72 68 68 68 Resp 21 18 19 22 B/P (MAP) 98/49 (65) 96/45 (62) 92/48 (63) 95/46 (62) Pulse Ox 100 100 100 100 O2 Delivery Ventilator Ventilator Ventilator Ventilator 04/05/17 04/05/17 04/05/17 04/05/17 16:45 16:51 17:00 17:15 Pulse 68 68 72 Resp 21 22 27 B/P (MAP) 85/45 (58) 100/49 (66) 106/49 (68) Pulse Ox 100 100 100 100 O2 Delivery Ventilator Ventilator Ventilator Ventilator 04/05/17 04/05/17 04/05/17 04/05/17 17:30 17:45 18:00 18:15 Pulse 68 69 68 68 Resp 28 29 35 32 B/P (MAP) 99/49 (66) 81/45 (57) 85/45 (58) 84/48 (60) Pulse Ox 100 100 100 100 O2 Delivery Ventilator Ventilator Ventilator Ventilator 04/05/17 04/05/17 04/05/17 04/05/17 19:00 20:00 20:01 20:15 Temp 98.1 98.1 Pulse 68 74 Resp 32 32 B/P (MAP) 92/50 (64) 103/53 (70) Pulse Ox 100 100 100 O2 Delivery Ventilator Ventilator Ventilator Mechanical Ventilator 04/05/17 04/05/17 04/05/17 04/05/17 21:00 22:00 22:30 23:00 Pulse 68 68 69 68 Resp 32 32 32 32 B/P (MAP) 106/52 (70) 95/51 (66) 102/50 (67) 113/56 (75) Pulse Ox 100 100 100 100 O2 Delivery Ventilator Ventilator Ventilator Ventilator 04/05/17 04/06/17 04/06/17 04/06/17 23:16 00:00 00:16 01:00 Temp 98.6 98.6 Pulse 69 69 Resp 32 20 B/P (MAP) 117/56 (76) 91/47 (62) Pulse Ox 100 100 100 O2 Delivery Ventilator Ventilator Mechanical Ventilator Ventilator 04/06/17 04/06/17 04/06/17 04/06/17 02:00 02:24 03:00 03:33 Pulse 68 68 Resp 22 32 B/P (MAP) 117/56 (76) 107/56 (73) Pulse Ox 100 100 100 100 O2 Delivery Ventilator Ventilator Ventilator Ventilator 04/06/17 04/06/17 04/06/17 04/06/17 04:00 04:00 05:00 05:27 Temp 99.0 99.0 Pulse 79 90 Resp 22 18 B/P (MAP) 110/54 (72) 96/54 (68) Pulse Ox 100 100 100 O2 Delivery Mechanical Ventilator Ventilator Ventilator Ventilator 04/06/17 04/06/17 04/06/17 04/06/17 06:00 07:19 07:30 07:42 Temp 97.9 97.9 Pulse 90 76 78 Resp 18 16 13 B/P (MAP) 113/60 (77) 110/59 (76) 118/60 (79) Pulse Ox 100 100 100 O2 Delivery Ventilator Ventilator Ventilator Mechanical Ventilator 04/06/17 04/06/17 04/06/17 04/06/17 08:15 08:29 08:32 08:45 Pulse 80 76 78 Resp 14 16 9 B/P (MAP) 116/58 (77) 110/59 (76) 111/47 (68) Pulse Ox 100 100 100 100 O2 Delivery Ventilator Ventilator Ventilator Ventilator 04/06/17 04/06/17 04/06/17 04/06/17 09:00 09:15 09:30 09:45 Pulse 80 82 82 72 Resp 24 17 18 19 B/P (MAP) 113/56 (75) 106/53 (70) 114/52 (72) 101/48 (65) Pulse Ox 100 100 100 100 O2 Delivery Ventilator Ventilator Ventilator Ventilator 04/06/17 04/06/17 04/06/17 04/06/17 10:00 10:15 10:30 11:00 Temp 98.5 98.5 Pulse 70 72 68 68 Resp 16 12 13 16 B/P (MAP) 94/48 (63) 100/51 (67) 98/51 (67) 99/50 (66) Pulse Ox 100 100 100 100 O2 Delivery Ventilator Ventilator Ventilator Ventilator 04/06/17 04/06/17 12:00 12:27 Pulse 72 Resp 11 B/P (MAP) 96/54 (68) Pulse Ox 100 O2 Delivery Ventilator Mechanical Ventilator Intake and Output 04/05/17 04/05/17 04/06/17 15:00 23:00 07:00 Intake Total 150 ml 1762 ml 1985 ml Output Total 187 ml 203 ml 240 ml Balance -37 ml 1559 ml 1745 ml Nutrition Consultation Dietary Evaluation: Recommendations by RD: Increase Calorie Intake, PPN/TPN Comments: Rec. TPN once PICC is placed to meet nutrition needs (Dextrose 195 grams, Lipids 20 grams, Amino Acids 60 grams) Expected Outcomes/Goals: initiation of nutrition support Interpretation of weight loss: >10% in 6 months Malnutrition Findings: Food and Nutrition Intake (Mod: <75% est energy req 7days Reduced Park Maintainer Strength: N/A Reduced Park Maintainer Strength (Non-Sev: N/A Malnutrition related to morbid: No Weight Status: Overweight Fluid Accumulation (N/A): N/A KENDRICK MARADIAGA MD Apr 06, 2017 12:54
[2017-04-06] MEDS: ALBUTEROL SULFATE 2.5 MG/3 ML NEBU. NEB PRN ×2 (17:43→20:03)
[2017-04-06] MEDS ORDERED: PROPOFOL 100 ML IV STA (18:18)
[2017-04-06] MEDS ORDERED: VECURONIUM BOLUS 10 MG VIAL. IV ONE (18:30)
[2017-04-06 18:33] LABS: HCO3 ABG 26 mmol/L (21-28); PCO2 ABG 41 mmHg (35-46); PH ABG 7.41 (7.35-7.45); PO2 ABG 72 mmHg (65-108); SAT O2 ABG 94 % (92-99)
[2017-04-06 19:06] LABS: FIO2 ABG 40
--- NOTE | 2017-04-06 19:07 | RAD ---
PORTABLE CHEST 1V dated 04/06/2017 6:29 PM. Comparison: 04/06/2017 Clinical Indication: REINTUBATION Findings: Single upright portable exam performed. Endotracheal tube tip approximately 4.1 cm above the level of kenn. NG tube crosses the GE junction. Right internal jugular catheter is in place, unchanged. There is a dual lead left subclavian pacer in place, unchanged. Heart and mediastinal contours are stable. Patchy perihilar airspace disease with blunting of the costophrenic sulci, similar to slightly increased. No pneumothorax. Impression: 1. Bilateral airspace disease with small pleural effusions, similar to prior study. 2. Tubes and lines as described above. Electronically signed by: Ab El MD (04/06/2017 7:04 PM)
[2017-04-06] MEDS: ATORVASTATIN CALCIUM 40 MG TABLET. PO SCH (20:34)
[2017-04-06 21:23] LABS: HEP B SURFACE ABDY Non Reactive (.)
[2017-04-07] VITALS (24 sets, daily range): BP systolic 90–113; BP diastolic 54–64
[2017-04-07] MEDS: PIPERACILLIN/TAZOBACTAM 2.25 GM in IV NORMAL SALINE 50ML 50 ML IV SCH ×2 (00:02→05:37)
[2017-04-07] MEDS: IV NORMAL SALINE 1000ML BAG 1,000 ML IV SCH ×3 (05:37→18:04)
[2017-04-07 06:04] LABS: BASO % 0 % (0-3); EOS % 2 % (0-3); HEMATOCRIT 23.4 % (39.0-53.0); HEMOGLOBIN 8.1 g/dL (13.0-17.5); LYMPH % 35 % (24-48); MEAN CORPUSCULAR HEMOGLOBIN 29 pg (25-35); MEAN CORPUSCULAR HGB CONC 34 g/dL (31-37); MEAN CORPUSCULAR VOLUME 85 fL (79-100); MONO % 7 % (0-9); NEUT % 56 % (31-73); PLATELET COUNT 117 x10^3/uL (140-400); RED BLOOD COUNT 2.75 x10^6/uL (4.30-5.70); WHITE BLOOD COUNT 11.3 x10^3/uL (4.0-11.0)
[2017-04-07 06:26] LABS: INR 1.1 (0.8-1.1); PROTHROMBIN TIME PATIENT 13.6 SEC (11.7-14.0)
[2017-04-07 06:30] LABS: CALCIUM 7.5 mg/dL (8.5-10.1); CREATININE 1.1 mg/dL (0.7-1.3); GFR 65.1; POTASSIUM 3.8 mmol/L (3.5-5.1)
[2017-04-07] MEDS: ALBUTEROL SULFATE 2.5 MG/3 ML NEBU. NEB PRN ×3 (07:41→19:57)
[2017-04-07 07:57] LABS: HCO3 ABG 22 mmol/L (21-28); PCO2 ABG 34 mmHg (35-46); PH ABG 7.44 (7.35-7.45); PO2 ABG 110 mmHg (65-108); SAT O2 ABG 97 % (92-99)
[2017-04-07 07:59] LABS: FIO2 ABG 40
--- NOTE | 2017-04-07 08:11 | PDOC ---
Infectious Disease Note Subjective Subjective on vent, almost off vasopressors ROS ROS unable to do Vital Sign Vital Signs Vital Signs Date Time Temp Pulse Resp B/P (MAP) Pulse Ox O2 Delivery O2 Flow Rate FiO2 04/07/17 07:41 100 Ventilator 04/07/17 06:55 98.4 69 18 99/55 (70) 98.4 Physical Exam PHYSICAL EXAM GENERAL: NAD, on vent HEENT: PERRL, OC/OP NECK: Supple, no JVD, no LN LUNGS: Clear HEART: S1S2, no gallop, no murmur ABD: Soft, NT, no organomegaly, no rebound EXT: No edema, no cyanosis [employer]: on vent SKIN: No rash IV: ok Labs Lab Laboratory Tests Test 04/06/17 10:14 04/06/17 12:50 04/07/17 05:50 04/07/17 07:45 Ionized Calcium 1.12 mmol/L (1.13-1.32) Hemoglobin 7.1 g/dL (13.0-17.5) 8.1 g/dL (13.0-17.5) Hematocrit 21.2 % (39.0-53.0) 23.4 % (39.0-53.0) Mean Corpuscular Hemoglobin Concent 34 g/dL (31-37) 34 g/dL (31-37) White Blood Count 11.3 x10^3/uL (4.0-11.0) Red Blood Count 2.75 x10^6/uL (4.30-5.70) Mean Corpuscular Volume 85 fL (79-100) Mean Corpuscular Hemoglobin 29 pg (25-35) Red Cell Distribution Width 17.0 % (11.5-14.5) Platelet Count 117 x10^3/uL (140-400) Neutrophils (%) (Auto) 56 % (31-73) Lymphocytes (%) (Auto) 35 % (24-48) Monocytes (%) (Auto) 7 % (0-9) Eosinophils (%) (Auto) 2 % (0-3) Basophils (%) (Auto) 0 % (0-3) Neutrophils # (Auto) 6.3 x10^3uL (1.8-7.7) Lymphocytes # (Auto) 4.0 x10^3/uL (1.0-4.8) Monocytes # (Auto) 0.7 x10^3/uL (0.0-1.1) Eosinophils # (Auto) 0.3 x10^3/uL (0.0-0.7) Basophils # (Auto) 0.0 x10^3/uL (0.0-0.2) Prothrombin Time 13.6 SEC (11.7-14.0) Prothromb Time International Ratio 1.1 (0.8-1.1) Sodium Level 143 mmol/L (136-145) Potassium Level 3.8 mmol/L (3.5-5.1) Chloride Level 112 mmol/L (98-107) Carbon Dioxide Level 26 mmol/L (21-32) Anion Gap 5 (6-14) Blood Urea Nitrogen 29 mg/dL (8-26) Creatinine 1.1 mg/dL (0.7-1.3) Estimated GFR (Cockcroft-Gault) 65.1 Glucose Level 84 mg/dL (70-99) Calcium Level 7.5 mg/dL (8.5-10.1) O2 Saturation 97 % (92-99) Arterial Blood pH 7.44 (7.35-7.45) Arterial Blood pCO2 at Patient Temp 34 mmHg (35-46) Arterial Blood pO2 at Patient Temp 110 mmHg (65-108) Arterial Blood HCO3 22 mmol/L (21-28) Arterial Blood Base Excess -2 mmol/L (-3-3) FiO2 40 Micro SPUTUM CULTURE PRL Final Final report SPUTUM CULT RES 1 Final Klebsiella pneumoniae Moderate growth ANTIMICROBIAL SUSCEPTIBILITY Final Comment S = Susceptible; I = Intermediate; R = Resistant P = Positive; N = Negative MICS are expressed in micrograms per mL Antibiotic RSLT#1 RSLT#2 RSLT#3 RSLT#4 Amoxicillin/Clavulanic Acid S Ampicillin R Cefepime S Ceftriaxone S Cefuroxime S Ciprofloxacin S Ertapenem S Gentamicin S Imipenem S Levofloxacin S Piperacillin R Tetracycline S Tobramycin S Trimethoprim/Sulfa S Performed at: [address] [id number] Objective Assessment Sepsis vs SIRS - on Levophed Fever Leukocytosis, trending down Retroperitoneal bleed s/p 04/03 Selective/superselective right iliac arteriogram.Trans-microcatheter Gelfoam slurry and microcoil embolization of right iliolumbar artery Aspiration -vomiting 04/03. Kleb MARTHA on HD Resp failure Levoflox allergy - tendon rupture/Bactrim allergy - sores Afib Plan Plan of Care change zosyn to rocleslie d/w family at bedside WILFRID AGUILAR MD Apr 07, 2017 08:11
[2017-04-07] MEDS: PANTOPRAZOLE IV PUSH 40 MG VIAL. IVP SCH (09:03)
[2017-04-07] MEDS: CHLORHEXIDINE 0.12% 15 ML MOUTHWASH. MM SCH ×2 (09:03→23:57)
--- NOTE | 2017-04-07 09:06 | PDOC ---
SUBJECTIVE ROS MARTHA Doing Well OBJECTIVE Vital Signs Vital Signs Date Time Temp Pulse Resp B/P (MAP) Pulse Ox O2 Delivery O2 Flow Rate FiO2 04/07/17 07:41 100 Ventilator 04/07/17 06:55 98.4 69 18 99/55 (70) 98.4 I & 0 Intake and Output 04/07/17 07:00 Intake Total 4355 ml Output Total 1340 ml Balance 3015 ml Intake Oral 0 ml IV Total 4070 ml Blood Product IV Normal Saline Flush 285 ml Output Urine Total 1140 ml Gastric Drainage Total 200 ml PHYSICAL EXAM Physical Exam General Appearance: Sedated and Intubated Neck: No JVD or JVP Chest: CTA Vince Heart: S1 S2 Abdomen - Soft NTND - hypoActive BS Extremities - + Edema DIAGNOSIS/ASSESSMENT Assessment & Plan MARTHA - resolved Edema - D/c IVf once TF can be started HypoAlbuminemia - ? Start TF Will sign off - pl call if needed Problems: COMMENT/RELEVANT DATA Meds Current Medications Medications (Trade) Dose Ordered Sig/Negar Start Time Stop Time Status Last Admin Dose Admin Acetaminophen (Tylenol) 650 mg PRN Q4HRS PRN 04/02/17 04:15 04/03/17 04:14 DC Albuterol Sulfate (Ventolin Hfa) 1 puff Q2HR PRN 04/03/17 08:30 UNV Albuterol Sulfate (Ventolin Neb Soln) 2.5 mg PRN Q2HRS PRN 04/03/17 08:45 04/07/17 07:41 2.5 MG Amoxicillin/ Clavulanate Potassium (Augmentin 875/ 125mg) 1 tab [id number] 04/03/17 09:00 04/04/17 07:31 DC 04/03/17 18:12 1 TAB Atorvastatin Calcium (Lipitor) 80 mg QHS 04/03/17 21:00 04/06/17 20:34 80 MG Calcium Gluconate (Calcium Gluconate) 1,000 mg 1X ONCE 04/06/17 11:30 04/06/17 11:31 DC 04/06/17 11:17 1,000 MG Ceftriaxone Sodium 1 gm/ Sodium Chloride 50 ml @ 100 mls/hr Q24H 04/07/17 09:00 Chlorhexidine Gluconate (Peridex) 15 ml BID 04/03/17 21:00 04/06/17 20:34 15 ML Darbepoetin Shukri (Aranesp) 60 mcg WEEKLYHS 04/04/17 21:00 04/04/17 21:06 60 MCG Diphenhydramine HCl (Benadryl) 25 mg 1X PRN PRN 04/04/17 13:30 04/05/17 13:29 DC Fentanyl Citrate (Fentanyl 2ml Vial) 50 mcg 1X ONCE 04/03/17 14:00 04/03/17 15:23 DC 04/03/17 16:56 50 MCG Gelatin (Gelfoam Size 12-7mm) 1 each STK-MED ONCE 04/03/17 15:41 04/03/17 15:42 DC Heparin Sodium (Porcine) (Heparin Sodium) 10,000 unit STK-MED ONCE 04/04/17 11:33 04/04/17 11:34 DC Heparin Sodium/ Sodium Chloride 60 unit 1X ONCE 04/04/17 11:30 04/04/17 11:31 DC 04/04/17 11:59 60 UNIT Hydromorphone HCl (Dilaudid) 1 mg PRN Q2HRS PRN 04/02/17 16:15 04/03/17 09:54 1 MG Info (PHARMACY MONITORING -- do not chart) 1 each PRN DAILY PRN 04/04/17 13:30 Iohexol (Omnipaque 300 Mg/ml) 100 ml 1X ONCE 04/03/17 15:30 04/03/17 15:31 DC 04/03/17 16:45 164 ML Iohexol (Omnipaque 350 Mg/ml) 90 ml 1X ONCE 04/03/17 12:15 04/03/17 12:16 DC 04/03/17 12:27 90 ML Lidocaine/Sodium Bicarbonate (Buffered Lidocaine 1%) 3 ml 1X ONCE 04/04/17 11:30 04/04/17 11:31 DC 04/04/17 11:59 3 ML Micafungin Sodium 100 mg/Dextrose 100 ml @ 100 mls/hr Q24H 04/04/17 10:00 04/07/17 08:12 DC 04/06/17 09:35 100 MLS/HR Midazolam HCl 100 ml @ 0 mls/hr CONT PRN 04/03/17 21:45 04/05/17 23:06 4 MLS/HR Midazolam HCl (Versed) 1 mg 1X ONCE 04/03/17 14:00 04/03/17 15:23 DC 04/03/17 16:55 1 MG Nitroglycerin (Nitroglycerin) 200 mcg 1X ONCE 04/03/17 16:15 04/03/17 16:16 DC 04/03/17 16:47 400 MCG Nitroglycerin (Nitrostat) 0.4 mg PRN Q5MIN PRN 04/03/17 08:30 Norepinephrine Bitartrate 250 ml @ 0 mls/hr CONT PRN 04/03/17 11:00 04/05/17 17:14 13.125 MLS/HR Ondansetron HCl (Zofran) 4 mg 1X ONCE 04/03/17 14:08 04/03/17 15:23 DC 04/03/17 16:48 4 MG Pantoprazole Sodium (Protonix Vial) 40 mg DAILYAC 04/04/17 11:30 04/06/17 08:00 40 MG Pantoprazole Sodium (Protonix) 40 mg DAILYAC 04/03/17 09:00 04/04/17 11:21 DC Phenylephrine HCl 20 mg/Sodium Chloride 252 ml @ 0 mls/hr CONT PRN 04/03/17 21:45 Phytonadione (Vitamin K) 2 mg 1X ONCE 04/02/17 12:00 04/02/17 12:01 DC 04/02/17 15:25 2 MG Phytonadione 10 mg/Sodium Chloride 51 ml @ 102 mls/hr 1X ONCE 04/04/17 13:00 04/04/17 13:29 DC 04/04/17 13:16 102 MLS/HR Piperacillin Sod/ Tazobactam Sod (Zosyn Per Pharmacy) 1 each PRN DAILY PRN 04/03/17 22:00 04/04/17 07:29 DC Piperacillin Sod/ Tazobactam Sod 2.25 gm/Sodium Chloride 50 ml @ 100 mls/hr Q6HRS 04/04/17 12:00 04/07/17 08:12 DC 04/07/17 05:37 100 MLS/HR Piperacillin Sod/ Tazobactam Sod 4.5 gm/Sodium Chloride 100 ml @ 200 mls/hr Q6HRS 04/04/17 00:00 04/04/17 07:29 DC 04/04/17 05:37 200 MLS/HR Propofol 100 ml @ 0 mls/hr 1X STAT 04/06/17 18:18 04/06/17 18:28 DC 04/06/17 18:18 999 MLS/HR Rocuronium [place] (Zemuron) 50 mg STK-MED ONCE 04/03/17 14:30 04/03/17 14:31 DC Sodium Bicarbonate 100 meq 1X ONCE 04/03/17 20:15 04/03/17 20:16 DC 04/03/17 21:04 100 MEQ Sodium Chloride (Normal Saline Flush) 10 ml 1X PRN PRN 04/04/17 13:30 04/05/17 13:29 DC Succinylcholine Chloride (Anectine) 200 mg STK-MED ONCE 04/03/17 14:32 04/03/17 14:33 DC Vancomycin HCl (Vanco Per Pharmacy) 1 each PRN DAILY PRN 04/03/17 22:00 04/04/17 07:29 DC 04/03/17 22:01 1 EACH Vancomycin HCl 1.25 gm/Sodium Chloride 250 ml @ 167 mls/hr Q12H 04/04/17 10:00 04/04/17 10:00 DC Vancomycin HCl 1.5 gm/Sodium Chloride 500 ml @ 250 mls/hr Q24H 04/04/17 22:00 04/04/17 22:00 DC Vancomycin HCl 2 gm/Sodium Chloride 500 ml @ 250 mls/hr 1X ONCE 04/03/17 22:00 04/03/17 23:59 DC 04/03/17 22:09 250 MLS/HR Vecuronium [place] (Norcuron Bolus) 10 mg 1X ONCE 04/06/17 18:30 04/06/17 18:31 DC 04/06/17 18:24 10 MG Lab Laboratory Tests Test 04/06/17 10:14 04/06/17 12:50 04/07/17 05:50 04/07/17 07:45 Ionized Calcium 1.12 mmol/L (1.13-1.32) Hemoglobin 7.1 g/dL (13.0-17.5) 8.1 g/dL (13.0-17.5) Hematocrit 21.2 % (39.0-53.0) 23.4 % (39.0-53.0) Mean Corpuscular Hemoglobin Concent 34 g/dL (31-37) 34 g/dL (31-37) White Blood Count 11.3 x10^3/uL (4.0-11.0) Red Blood Count 2.75 x10^6/uL (4.30-5.70) Mean Corpuscular Volume 85 fL (79-100) Mean Corpuscular Hemoglobin 29 pg (25-35) Red Cell Distribution Width 17.0 % (11.5-14.5) Platelet Count 117 x10^3/uL (140-400) Neutrophils (%) (Auto) 56 % (31-73) Lymphocytes (%) (Auto) 35 % (24-48) Monocytes (%) (Auto) 7 % (0-9) Eosinophils (%) (Auto) 2 % (0-3) Basophils (%) (Auto) 0 % (0-3) Neutrophils # (Auto) 6.3 x10^3uL (1.8-7.7) Lymphocytes # (Auto) 4.0 x10^3/uL (1.0-4.8) Monocytes # (Auto) 0.7 x10^3/uL (0.0-1.1) Eosinophils # (Auto) 0.3 x10^3/uL (0.0-0.7) Basophils # (Auto) 0.0 x10^3/uL (0.0-0.2) Prothrombin Time 13.6 SEC (11.7-14.0) Prothromb Time International Ratio 1.1 (0.8-1.1) Sodium Level 143 mmol/L (136-145) Potassium Level 3.8 mmol/L (3.5-5.1) Chloride Level 112 mmol/L (98-107) Carbon Dioxide Level 26 mmol/L (21-32) Anion Gap 5 (6-14) Blood Urea Nitrogen 29 mg/dL (8-26) Creatinine 1.1 mg/dL (0.7-1.3) Estimated GFR (Cockcroft-Gault) 65.1 Glucose Level 84 mg/dL (70-99) Calcium Level 7.5 mg/dL (8.5-10.1) O2 Saturation 97 % (92-99) Arterial Blood pH 7.44 (7.35-7.45) Arterial Blood pCO2 at Patient Temp 34 mmHg (35-46) Arterial Blood pO2 at Patient Temp 110 mmHg (65-108) Arterial Blood HCO3 22 mmol/L (21-28) Arterial Blood Base Excess -2 mmol/L (-3-3) FiO2 40 PIERRE AGUILAR MD Apr 07, 2017 09:06
--- NOTE | 2017-04-07 09:16 | RAD ---
Indication respiratory failure. A single view of the chest was obtained and is compared to a study one day earlier. Bilateral pleural effusions persist. Heart and pulmonary vessels are similar. There has not been a significant change relative to the previous exam. Right-sided dialysis catheter, nasogastric tube and endotracheal tube are noted. Bipolar cardiac pacing device is noted. IMPRESSION: No significant change in the appearance of the chest
--- NOTE | 2017-04-07 10:28 | PDOC ---
PROGRESS NOTES Chief Complaint Chief Complaint cc: retroperitoneal bleed A/P 1. Retroperitoneal bleed: S/P microcoil embolization of right iliolumbar artery : hemoglobin stable. IR following. 2. Acute anemia of blood loss from above: s/p PRBC AND S/P FFP, monitor hemoglobin, stable at 8 3. Coumadin coagulopathy: INR 1.1 Hold Coumadin. 4. Septic shock possible aspiration: Klebsiella pneumoniae ID following. 5, Acute respiratory failure on mechanical ventilation,: Daily CXR, pulmonology following. off sedation, 6. Shock: on Levophed at 1mcg, decrease IV hydration, 7. Chronic lumbago, hypothyroidism, 8. Renal failure: Temp HD catheter and HD, Cr improving. renal following. 9. Afib, pacemaker on Coumadin: holding Coumadin, pacer in situ 10. condition:critical, prognosis poor/ guarded. D/W RN Vitals Vitals Vital Signs Date Time Temp Pulse Resp B/P (MAP) Pulse Ox O2 Delivery O2 Flow Rate FiO2 04/07/17 10:04 69 18 98/54 (69) 100 Ventilator 04/07/17 06:55 98.4 98.4 Physical Exam General: Other (off sedation, non verbal) Heart: Regular rate, Normal S1, Normal S2 Lungs: Clear, Other Abdomen: Normal bowel sounds, Other (less distention) Extremities: No clubbing, No cyanosis, No edema Skin: Other (no bruising) Labs LABS Laboratory Tests Test 04/06/17 12:50 04/07/17 05:50 04/07/17 07:45 Hemoglobin 7.1 g/dL (13.0-17.5) 8.1 g/dL (13.0-17.5) Hematocrit 21.2 % (39.0-53.0) 23.4 % (39.0-53.0) Mean Corpuscular Hemoglobin Concent 34 g/dL (31-37) 34 g/dL (31-37) White Blood Count 11.3 x10^3/uL (4.0-11.0) Red Blood Count 2.75 x10^6/uL (4.30-5.70) Mean Corpuscular Volume 85 fL (79-100) Mean Corpuscular Hemoglobin 29 pg (25-35) Red Cell Distribution Width 17.0 % (11.5-14.5) Platelet Count 117 x10^3/uL (140-400) Neutrophils (%) (Auto) 56 % (31-73) Lymphocytes (%) (Auto) 35 % (24-48) Monocytes (%) (Auto) 7 % (0-9) Eosinophils (%) (Auto) 2 % (0-3) Basophils (%) (Auto) 0 % (0-3) Neutrophils # (Auto) 6.3 x10^3uL (1.8-7.7) Lymphocytes # (Auto) 4.0 x10^3/uL (1.0-4.8) Monocytes # (Auto) 0.7 x10^3/uL (0.0-1.1) Eosinophils # (Auto) 0.3 x10^3/uL (0.0-0.7) Basophils # (Auto) 0.0 x10^3/uL (0.0-0.2) Prothrombin Time 13.6 SEC (11.7-14.0) Prothromb Time International Ratio 1.1 (0.8-1.1) Sodium Level 143 mmol/L (136-145) Potassium Level 3.8 mmol/L (3.5-5.1) Chloride Level 112 mmol/L (98-107) Carbon Dioxide Level 26 mmol/L (21-32) Anion Gap 5 (6-14) Blood Urea Nitrogen 29 mg/dL (8-26) Creatinine 1.1 mg/dL (0.7-1.3) Estimated GFR (Cockcroft-Gault) 65.1 Glucose Level 84 mg/dL (70-99) Calcium Level 7.5 mg/dL (8.5-10.1) O2 Saturation 97 % (92-99) Arterial Blood pH 7.44 (7.35-7.45) Arterial Blood pCO2 at Patient Temp 34 mmHg (35-46) Arterial Blood pO2 at Patient Temp 110 mmHg (65-108) Arterial Blood HCO3 22 mmol/L (21-28) Arterial Blood Base Excess -2 mmol/L (-3-3) FiO2 40 Assessment and Plan Assessmemt and Plan Problems Medical Problems: (1) Anticoagulated Status: Acute (2) Retroperitoneal bleed Status: Acute Problems: Comment Review of Relevant I have reviewed the following items sarbjit (where applicable) has been applied. Labs Laboratory Tests Test 04/05/17 12:00 04/06/17 05:45 04/06/17 08:00 04/06/17 10:14 White Blood Count 24.6 x10^3/uL (4.0-11.0) Red Blood Count 2.79 x10^6/uL (4.30-5.70) Hemoglobin 8.0 g/dL (13.0-17.5) 7.3 g/dL (13.0-17.5) Hematocrit 23.9 % (39.0-53.0) 21.6 % (39.0-53.0) Mean Corpuscular Volume 86 fL (79-100) Mean Corpuscular Hemoglobin 29 pg (25-35) Mean Corpuscular Hemoglobin Concent 34 g/dL (31-37) 34 g/dL (31-37) Red Cell Distribution Width 16.8 % (11.5-14.5) Platelet Count 148 x10^3/uL (140-400) Prothrombin Time 14.5 SEC (11.7-14.0) Prothromb Time International Ratio 1.2 (0.8-1.1) Sodium Level 143 mmol/L (136-145) Potassium Level 3.9 mmol/L (3.5-5.1) Chloride Level 109 mmol/L (98-107) Carbon Dioxide Level 30 mmol/L (21-32) Anion Gap 4 (6-14) Blood Urea Nitrogen 28 mg/dL (8-26) Creatinine 1.2 mg/dL (0.7-1.3) Estimated GFR (Cockcroft-Gault) 58.9 Glucose Level 97 mg/dL (70-99) Calcium Level 7.3 mg/dL (8.5-10.1) O2 Saturation 94 % (92-99) Arterial Blood pH 7.41 (7.35-7.45) Arterial Blood pCO2 at Patient Temp 41 mmHg (35-46) Arterial Blood pO2 at Patient Temp 72 mmHg (65-108) Arterial Blood HCO3 26 mmol/L (21-28) Arterial Blood Base Excess 1 mmol/L (-3-3) FiO2 40 Ionized Calcium 1.12 mmol/L (1.13-1.32) Test 04/06/17 12:50 04/07/17 05:50 6/19/17 07:45 Hemoglobin 7.1 g/dL (13.0-17.5) 8.1 g/dL (13.0-17.5) Hematocrit 21.2 % (39.0-53.0) 23.4 % (39.0-53.0) Mean Corpuscular Hemoglobin Concent 34 g/dL (31-37) 34 g/dL (31-37) White Blood Count 11.3 x10^3/uL (4.0-11.0) Red Blood Count 2.75 x10^6/uL (4.30-5.70) Mean Corpuscular Volume 85 fL (79-100) Mean Corpuscular Hemoglobin 29 pg (25-35) Red Cell Distribution Width 17.0 % (11.5-14.5) Platelet Count 117 x10^3/uL (140-400) Neutrophils (%) (Auto) 56 % (31-73) Lymphocytes (%) (Auto) 35 % (24-48) Monocytes (%) (Auto) 7 % (0-9) Eosinophils (%) (Auto) 2 % (0-3) Basophils (%) (Auto) 0 % (0-3) Neutrophils # (Auto) 6.3 x10^3uL (1.8-7.7) Lymphocytes # (Auto) 4.0 x10^3/uL (1.0-4.8) Monocytes # (Auto) 0.7 x10^3/uL (0.0-1.1) Eosinophils # (Auto) 0.3 x10^3/uL (0.0-0.7) Basophils # (Auto) 0.0 x10^3/uL (0.0-0.2) Prothrombin Time 13.6 SEC (11.7-14.0) Prothromb Time International Ratio 1.1 (0.8-1.1) Sodium Level 143 mmol/L (136-145) Potassium Level 3.8 mmol/L (3.5-5.1) Chloride Level 112 mmol/L (98-107) Carbon Dioxide Level 26 mmol/L (21-32) Anion Gap 5 (6-14) Blood Urea Nitrogen 29 mg/dL (8-26) Creatinine 1.1 mg/dL (0.7-1.3) Estimated GFR (Cockcroft-Gault) 65.1 Glucose Level 84 mg/dL (70-99) Calcium Level 7.5 mg/dL (8.5-10.1) O2 Saturation 97 % (92-99) Arterial Blood pH 7.44 (7.35-7.45) Arterial Blood pCO2 at Patient Temp 34 mmHg (35-46) Arterial Blood pO2 at Patient Temp 110 mmHg (65-108) Arterial Blood HCO3 22 mmol/L (21-28) Arterial Blood Base Excess -2 mmol/L (-3-3) FiO2 40 Laboratory Tests Test 04/06/17 12:50 04/07/17 05:50 04/07/17 07:45 Hemoglobin 7.1 g/dL (13.0-17.5) 8.1 g/dL (13.0-17.5) Hematocrit 21.2 % (39.0-53.0) 23.4 % (39.0-53.0) Mean Corpuscular Hemoglobin Concent 34 g/dL (31-37) 34 g/dL (31-37) White Blood Count 11.3 x10^3/uL (4.0-11.0) Red Blood Count 2.75 x10^6/uL (4.30-5.70) Mean Corpuscular Volume 85 fL (79-100) Mean Corpuscular Hemoglobin 29 pg (25-35) Red Cell Distribution Width 17.0 % (11.5-14.5) Platelet Count 117 x10^3/uL (140-400) Neutrophils (%) (Auto) 56 % (31-73) Lymphocytes (%) (Auto) 35 % (24-48) Monocytes (%) (Auto) 7 % (0-9) Eosinophils (%) (Auto) 2 % (0-3) Basophils (%) (Auto) 0 % (0-3) Neutrophils # (Auto) 6.3 x10^3uL (1.8-7.7) Lymphocytes # (Auto) 4.0 x10^3/uL (1.0-4.8) Monocytes # (Auto) 0.7 x10^3/uL (0.0-1.1) Eosinophils # (Auto) 0.3 x10^3/uL (0.0-0.7) Basophils # (Auto) 0.0 x10^3/uL (0.0-0.2) Prothrombin Time 13.6 SEC (11.7-14.0) Prothromb Time International Ratio 1.1 (0.8-1.1) Sodium Level 143 mmol/L (136-145) Potassium Level 3.8 mmol/L (3.5-5.1) Chloride Level 112 mmol/L (98-107) Carbon Dioxide Level 26 mmol/L (21-32) Anion Gap 5 (6-14) Blood Urea Nitrogen 29 mg/dL (8-26) Creatinine 1.1 mg/dL (0.7-1.3) Estimated GFR (Cockcroft-Gault) 65.1 Glucose Level 84 mg/dL (70-99) Calcium Level 7.5 mg/dL (8.5-10.1) O2 Saturation 97 % (92-99) Arterial Blood pH 7.44 (7.35-7.45) Arterial Blood pCO2 at Patient Temp 34 mmHg (35-46) Arterial Blood pO2 at Patient Temp 110 mmHg (65-108) Arterial Blood HCO3 22 mmol/L (21-28) Arterial Blood Base Excess -2 mmol/L (-3-3) FiO2 40 Microbiology 04/03/17 Blood Culture - Preliminary, Resulted NO GROWTH AFTER 3 DAYS 04/04/17 Gram Stain - Final, Complete Medications Current Medications Hydromorphone HCl (Dilaudid) 0.5 mg 1X ONCE IV Last administered on 04/02/17 03:31; Start 04/02/17 at 03:15; Stop 04/02/17 at 03:40; Status DC Ondansetron HCl (Zofran) 4 mg 1X ONCE IV Last administered on 04/02/17 03:31 ; Start 04/02/17 at 03:15; Stop 04/02/17 at 03:40; Status DC Sodium Chloride 1,000 ml @ 1,000 mls/hr 1X ONCE IV Last administered on 03:31; Start 04/02/17 at 03:15; Stop 04/02/17 at 04:14; Status DC Ondansetron HCl (Zofran) 4 mg PRN Q8HRS PRN IV NAUSEA/VOMITING Last administered on 04/02/17 16:23; Start 04/02/17 at 04:15; Stop 04/03/17 at 04:14 ; Status DC Fentanyl Citrate (Fentanyl 2ml Vial) 50 mcg PRN Q1HR PRN IV PAIN Last administered on 04/02/17 15:18; Start 04/02/17 at 04:15; Stop 04/03/17 at 04:14 ; Status DC Acetaminophen (Tylenol) 650 mg PRN Q4HRS PRN PO FEVER; Start 04/02/17 at 04:15 ; Stop 04/03/17 at 04:14; Status DC Phytonadione (Vitamin K) 2 mg 1X ONCE SQ Last administered on 04/02/17 15:25 ; Start 04/02/17 at 12:00; Stop 04/02/17 at 12:01; Status DC Hydromorphone HCl (Dilaudid) 1 mg PRN Q2HRS PRN IVP PAIN Last administered on 09:54; Start 04/02/17 at 16:15 Ondansetron HCl (Zofran) 4 mg PRN Q6HRS PRN IV NAUSEA/VOMITING; Start 04/03/17 at 08:30 Pantoprazole Sodium (Protonix) 40 mg DAILYAC PO ; Start 04/03/17 at 09:00; Stop 04/04/17 at 11:21; Status DC Albuterol Sulfate (Ventolin Hfa) 1 puff Q2HR PRN IH soa; Start 04/03/17 at 08: 30; Status UNV Amoxicillin/ Clavulanate Potassium (Augmentin 875/ 125mg) 1 tab BIDWMEALS PO Last administered on 04/03/17 18:12; Start 04/03/17 at 09:00; Stop 04/04/17 at 07:31; Status DC Nitroglycerin (Nitrostat) 0.4 mg PRN Q5MIN PRN SL cp; Start 04/03/17 at 08:30 Atorvastatin Calcium (Lipitor) 80 mg QHS PO Last administered on 04/06/17 20: 34; Start 04/03/17 at 21:00 Albuterol Sulfate (Ventolin Neb Soln) 2.5 mg PRN Q2HRS PRN NEB SHORTNESS OF BREATH Last administered on 04/07/17 07:41; Start 04/03/17 at 08:45 Sodium Chloride 1,000 ml @ 150 mls/hr Q6H40M IV Last administered on 05:37; Start 04/03/17 at 09:00 Sodium Chloride 1,000 ml @ 1,000 mls/hr 1X ONCE IV Last administered on 09:00; Start 04/03/17 at 09:00; Stop 04/03/17 at 09:59; Status DC Norepinephrine Bitartrate 250 ml @ 0 mls/hr CONT PRN IV SEE I/O RECORD Last administered on 04/05/17 17:14; Start 04/03/17 at 11:00 Iohexol (Omnipaque 350 Mg/ml) 90 ml 1X ONCE IV Last administered on 04/03/17 12:27; Start 04/03/17 at 12:15; Stop 04/03/17 at 12:16; Status DC Iohexol (Omnipaque 300 Mg/ml) 50 ml STK-MED ONCE .ROUTE ; Start 04/03/17 at 13: 27; Stop 04/03/17 at 13:28; Status DC Iohexol (Omnipaque 300 Mg/ml) 100 ml STK-MED ONCE .ROUTE ; Start 04/03/17 at 13: 27; Stop 04/03/17 at 13:28; Status DC Lidocaine/Sodium Bicarbonate (Buffered Lidocaine 1%) 20 ml STK-MED ONCE IJ ; Start 04/03/17 at 13:27; Stop 04/03/17 at 13:28; Status DC Heparin Sodium/ Sodium Chloride 1,500 ml @ As Directed STK-MED ONCE .ROUTE ; Start 04/03/17 at 13:28; Stop 04/03/17 at 13:29; Status DC Gelatin (Gelfoam Size 12-7mm) 1 each STK-MED ONCE .ROUTE ; Start 04/03/17 at 13 :52; Stop 04/03/17 at 13:53; Status DC Fentanyl Citrate (Fentanyl 2ml Vial) 100 mcg STK-MED ONCE .ROUTE ; Start at 13:54; Stop 04/03/17 at 13:55; Status DC Midazolam HCl (Versed) 2 mg STK-MED ONCE .ROUTE ; Start 04/03/17 at 13:54; Stop 04/03/17 at 13:55; Status DC Rocuronium [place] (Zemuron) 50 mg STK-MED ONCE .ROUTE ; Start 04/03/17 at 14:30 ; Stop 04/03/17 at 14:31; Status DC Propofol 20 ml @ As Directed STK-MED ONCE IV ; Start 04/03/17 at 14:30; Stop at 14:31; Status DC Succinylcholine Chloride (Anectine) 200 mg STK-MED ONCE .ROUTE ; Start 04/03/17 at 14:32; Stop 04/03/17 at 14:33; Status DC Iohexol (Omnipaque 300 Mg/ml) 100 ml STK-MED ONCE .ROUTE ; Start 04/03/17 at 14: 53; Stop 04/03/17 at 14:54; Status DC Propofol 100 ml @ As Directed STK-MED ONCE IV ; Start 04/03/17 at 15:16; Stop 04/03/17 at 15:17; Status DC Heparin Sodium/ Sodium Chloride 1,000 unit 1X ONCE IART Last administered on 16:46; Start 04/03/17 at 15:30; Stop 04/03/17 at 15:31; Status DC Lidocaine/Sodium Bicarbonate (Buffered Lidocaine 1%) 20 ml 1X ONCE IJ Last administered on 04/03/17 16:46; Start 04/03/17 at 15:30; Stop 04/03/17 at 15:31 ; Status DC Midazolam HCl (Versed) 1 mg 1X ONCE IV Last administered on 04/03/17 16:55; Start 04/03/17 at 14:00; Stop 04/03/17 at 15:23; Status DC Fentanyl Citrate (Fentanyl 2ml Vial) 50 mcg 1X ONCE IV Last administered on 16:56; Start 04/03/17 at 14:00; Stop 04/03/17 at 15:23; Status DC Iohexol (Omnipaque 300 Mg/ml) 100 ml 1X ONCE IART Last administered on 16:45; Start 04/03/17 at 15:30; Stop 04/03/17 at 15:31; Status DC Ondansetron HCl (Zofran) 4 mg 1X ONCE IV Last administered on 04/03/17 16:48 ; Start 04/03/17 at 14:08; Stop 04/03/17 at 15:23; Status DC Gelatin (Gelfoam Size 12-7mm) 1 each STK-MED ONCE .ROUTE ; Start 04/03/17 at 15 :41; Stop 04/03/17 at 15:42; Status DC Nitroglycerin (Nitroglycerin) 200 mcg 1X ONCE IART Last administered on 16:47; Start 04/03/17 at 16:15; Stop 04/03/17 at 16:16; Status DC Chlorhexidine Gluconate (Peridex) 15 ml BID MM Last administered on 04/07/17 09:03; Start 04/03/17 at 21:00 Propofol 100 ml @ 0 mls/hr CONT PRN IV SEE I/O RECORD; Start 04/03/17 at 17:15 Sodium Bicarbonate 100 meq 1X ONCE IV Last administered on 04/03/17 18:12; Start 04/03/17 at 18:00; Stop 04/03/17 at 18:01; Status DC Sodium Bicarbonate 100 meq 1X ONCE IV Last administered on 04/03/17 21:04; Start 04/03/17 at 20:15; Stop 04/03/17 at 20:16; Status DC Phenylephrine HCl 20 mg/Sodium Chloride 252 ml @ 0 mls/hr CONT PRN IV SEE I/O RECORD; Start 04/03/17 at 21:45 Sodium Chloride 1,000 ml @ 1,000 mls/hr 1X ONCE IV Last administered on 22:08; Start 04/03/17 at 21:45; Stop 04/03/17 at 22:44; Status DC Midazolam HCl 100 ml @ 0 mls/hr CONT PRN IV SEE I/O RECORD Last administered on 04/05/17 23:06; Start 04/03/17 at 21:45 Vancomycin HCl (Vanco Per Pharmacy) 1 each PRN DAILY PRN MC SEE COMMENTS Last administered on 04/03/17 22:01; Start 04/03/17 at 22:00; Stop 04/04/17 at 07:29 ; Status DC Piperacillin Sod/ Tazobactam Sod (Zosyn Per Pharmacy) 1 each PRN DAILY PRN MC SEE COMMENTS; Start 04/03/17 at 22:00; Stop 04/04/17 at 07:29; Status DC Vancomycin HCl 2 gm/Sodium Chloride 500 ml @ 250 mls/hr 1X ONCE IV Last administered on 04/03/17 22:09; Start 04/03/17 at 22:00; Stop 04/03/17 at 23:59 ; Status DC Piperacillin Sod/ Tazobactam Sod 4.5 gm/Sodium Chloride 100 ml @ 200 mls/hr Q6HRS IV Last administered on 04/04/17 05:37; Start 04/04/17 at 00:00; Stop at 07:29; Status DC Vancomycin HCl 1.25 gm/Sodium Chloride 250 ml @ 167 mls/hr Q12H IV ; Start at 10:00; Stop 04/04/17 at 10:00; Status DC Vancomycin HCl 1 each 1X ONCE MC ; Start 04/05/17 at 09:30; Stop 04/05/17 at 09 :31; Status Cancel Sodium Chloride 1,000 ml @ 1,000 mls/hr 1X ONCE IV Last administered on 23:27; Start 04/03/17 at 23:30; Stop 04/04/17 at 00:29; Status DC Sodium Chloride 500 ml @ 500 mls/hr 1X ONCE IV Last administered on 00:28; Start 04/04/17 at 00:30; Stop 04/04/17 at 01:30; Status DC Vancomycin HCl 1.5 gm/Sodium Chloride 500 ml @ 250 mls/hr Q24H IV ; Start 04/04 at 22:00; Stop 04/04/17 at 22:00; Status DC Piperacillin Sod/ Tazobactam Sod 2.25 gm/Sodium Chloride 50 ml @ 100 mls/hr Q6HRS IV Last administered on 04/07/17 05:37; Start 04/04/17 at 12:00; Stop at 08:12; Status DC Lidocaine/Sodium Bicarbonate (Buffered Lidocaine 1%) 3 ml 1X ONCE IJ Last administered on 04/04/17 09:15; Start 04/04/17 at 09:15; Stop 04/04/17 at 09:16 ; Status DC Heparin Sodium/ Sodium Chloride 60 unit 1X ONCE IV Last administered on 09:51; Start 04/04/17 at 09:15; Stop 04/04/17 at 09:16; Status DC Heparin Sodium (Porcine) (Heparin Sodium) 10,000 unit STK-MED ONCE .ROUTE ; Start 04/04/17 at 09:17; Stop 04/04/17 at 09:18; Status DC Micafungin Sodium 100 mg/Dextrose 100 ml @ 100 mls/hr Q24H IV Last administered on 04/06/17 09:35; Start 04/04/17 at 10:00; Stop 04/07/17 at 08:12 ; Status DC Pantoprazole Sodium (Protonix Vial) 40 mg DAILYAC IVP Last administered on 04/07 09:03; Start 04/04/17 at 11:30 Lidocaine/Sodium Bicarbonate (Buffered Lidocaine 1%) 3 ml 1X ONCE IJ Last administered on 04/04/17 11:59; Start 04/04/17 at 11:30; Stop 04/04/17 at 11:31 ; Status DC Heparin Sodium/ Sodium Chloride 60 unit 1X ONCE IV Last administered on 11:59; Start 04/04/17 at 11:30; Stop 04/04/17 at 11:31; Status DC Heparin Sodium (Porcine) (Heparin Sodium) 2,500 unit 1X ONCE INT CAT Last administered on 04/04/17 11:58; Start 04/04/17 at 11:30; Stop 04/04/17 at 11:31 ; Status DC Heparin Sodium (Porcine) (Heparin Sodium) 10,000 unit STK-MED ONCE .ROUTE ; Start 04/04/17 at 11:33; Stop 04/04/17 at 11:34; Status DC Darbepoetin Shukri (Aranesp) 60 mcg [id number] SQ Last administered on 04/04/17 21 :06; Start 04/04/17 at 21:00 Phytonadione 10 mg/Sodium Chloride 51 ml @ 102 mls/hr 1X ONCE IV Last administered on 04/04/17 13:16; Start 04/04/17 at 13:00; Stop 04/04/17 at 13:29 ; Status DC Sodium Chloride 1,000 ml @ 1,000 mls/hr Q1H PRN IV hypotension; Start 04/04/17 at 13:26; Stop 04/04/17 at 19:25; Status DC Diphenhydramine HCl (Benadryl) 25 mg 1X PRN PRN IV ITCHING; Start 04/04/17 at 13:30; Stop 04/05/17 at 13:29; Status DC Diphenhydramine HCl (Benadryl) 25 mg 1X PRN PRN IV ITCHING; Start 04/04/17 at 13:30; Stop 04/05/17 at 13:29; Status DC Sodium Chloride (Normal Saline Flush) 10 ml 1X PRN PRN IV AP catheter pack; Start 04/04/17 at 13:30; Stop 04/05/17 at 13:29; Status DC Sodium Chloride (Normal Saline Flush) 10 ml 1X PRN PRN IV OPERATIONS MANAGER/COORDINATOR catheter pack; Start 04/04/17 at 13:30; Stop 04/05/17 at 13:29; Status DC Info (PHARMACY MONITORING -- do not chart) 1 each PRN DAILY PRN MC SEE COMMENTS ; Start 04/04/17 at 13:30 Calcium Gluconate (Calcium Gluconate) 1,000 mg 1X ONCE IVP Last administered on 04/06/17 11:17; Start 04/06/17 at 11:30; Stop 04/06/17 at 11:31; Status DC Vecuronium [place] (Norcuron Bolus) 10 mg 1X ONCE IV Last administered on 04/06 18:24; Start 04/06/17 at 18:30; Stop 04/06/17 at 18:31; Status DC Propofol 100 ml @ 0 mls/hr 1X STAT IV Last administered on 04/06/17 18:18; Start 04/06/17 at 18:18; Stop 04/06/17 at 18:28; Status DC Ceftriaxone Sodium 1 gm/ Sodium Chloride 50 ml @ 100 mls/hr Q24H IV Last administered on 04/07/17 09:03; Start 04/07/17 at 09:00 Active Scripts Active Reported Augmentin 875-125 Tablet (Amoxicillin/Potassium Clav) 1 Each Tablet 1 Tab PO BID Proair Hfa (Albuterol Sulfate) 8.5 Gm Hfa.aer.ad 9 Gm IH Proscar (Finasteride) 5 Mg Tablet 1 Tab PO DAILY NITROGLYCERIN SubLingual (Nitroglycerin) 0.4 Mg Tab.subl 1 Tab SL UD Coumadin (Warfarin Sodium) 3 Mg Tablet 1 Tab PO DAILY Proair Hfa Inhaler (Albuterol Sulfate) 8.5 Gm Hfa.aer.ad 1-2 Inh IH Q4-6 HRS PRN Lipitor (Atorvastatin Calcium) 80 Mg Tablet 80 Mg PO DAILY Vitals/I & O Vital Sign - Last 24 Hours 04/06/17 04/06/17 04/06/17 04/06/17 10:30 11:00 12:00 12:27 Temp 98.5 98.5 Pulse 68 68 72 Resp 13 16 11 B/P (MAP) 98/51 (67) 99/50 (66) 96/54 (68) Pulse Ox 100 100 100 O2 Delivery Ventilator Ventilator Ventilator Mechanical Ventilator 04/06/17 04/06/17 04/06/17 04/06/17 13:02 13:15 13:37 13:52 Temp 98.5 98.1 98.5 98.1 Pulse 69 69 75 Resp 16 16 19 B/P (MAP) 101/50 (67) 101/50 96/49 Pulse Ox 100 100 O2 Delivery Ventilator Ventilator 04/06/17 04/06/17 04/06/17 04/06/17 14:10 14:29 15:08 15:09 Temp 98.5 98.1 98.1 98.5 98.1 98.1 Pulse 69 69 72 72 Resp 18 18 16 18 B/P (MAP) 98/50 (66) 98/50 86/50 86/50 (62) Pulse Ox 100 100 O2 Delivery Ventilator Ventilator 04/06/17 04/06/17 04/06/17 04/06/17 15:57 16:19 17:42 17:43 Pulse 69 69 Resp 21 16 B/P (MAP) 91/51 (64) 97/51 (66) Pulse Ox 100 100 99 O2 Delivery Mechanical Ventilator Ventilator Ventilator Ventilator 04/06/17 04/06/17 04/06/17 04/06/17 18:04 19:00 20:00 20:00 Temp 99.0 99.0 Pulse 69 69 77 Resp 16 16 16 B/P (MAP) 83/47 (59) 111/63 (79) 99/55 (70) Pulse Ox 100 100 100 O2 Delivery Ventilator Ventilator Ventilator Mechanical Ventilator 04/06/17 04/06/17 04/06/17 04/06/17 20:02 21:00 22:00 23:00 Pulse 69 70 69 Resp 16 16 16 B/P (MAP) 114/62 (79) 96/55 (69) 99/59 (72) Pulse Ox 100 100 100 100 O2 Delivery Ventilator Ventilator Ventilator Ventilator 04/06/17 04/06/17 04/07/17 04/07/17 23:37 23:59 00:00 01:00 Temp 98.2 98.2 Pulse 69 69 Resp 16 16 B/P (MAP) 100/59 (73) 95/59 (71) Pulse Ox 100 100 100 O2 Delivery Ventilator Mechanical Ventilator Ventilator Ventilator 04/07/17 04/07/17 04/07/17 04/07/17 01:42 02:00 03:00 03:38 Pulse 69 69 Resp 16 16 B/P (MAP) 102/62 (75) 90/62 (71) Pulse Ox 100 100 100 100 O2 Delivery Ventilator Ventilator Ventilator Ventilator 04/07/17 04/07/17 04/07/17 04/07/17 04:00 04:00 05:00 05:49 Temp 98.0 98.0 Pulse 69 69 Resp 16 16 B/P (MAP) 112/64 (80) 110/59 (76) Pulse Ox 100 100 100 O2 Delivery Ventilator Mechanical Ventilator Ventilator Ventilator 04/07/17 04/07/17 04/07/17 04/07/17 06:00 06:55 07:41 08:00 Temp 98.4 98.4 Pulse 69 69 Resp 16 18 B/P (MAP) 110/58 (75) 99/55 (70) Pulse Ox 100 100 100 O2 Delivery Ventilator Ventilator Ventilator Mechanical Ventilator 04/07/17 04/07/17 04/07/17 08:00 09:00 10:04 Pulse 68 68 69 Resp 18 18 18 B/P (MAP) 103/61 (75) 112/57 (75) 98/54 (69) Pulse Ox 100 100 100 O2 Delivery Ventilator Ventilator Ventilator Intake and Output 04/06/17 04/06/17 04/07/17 15:00 23:00 07:00 Intake Total 435 ml 2047 ml 1873 ml Output Total 438 ml 152 ml 750 ml Balance -3 ml 1895 ml 1123 ml Nutrition Consultation Dietary Evaluation: Recommendations by RD: Increase Calorie Intake, PPN/TPN Comments: Rec. TF's with Peptamen AF, goal rate 60 ml/hr start at 20 ml/hr, increase by 20 ml/hr q8h to goal rate flushes 30 cc q8h while IVF's running Expected Outcomes/Goals: initiation of nutrition support tolerate the TF's at goal rate Interpretation of weight loss: >10% in 6 months Malnutrition Findings: Food and Nutrition Intake (Mod: <75% est energy req 7days Reduced Manager Dairy Strength: N/A Reduced Manager Dairy Strength (Non-Sev: N/A Malnutrition related to morbid: No Weight Status: Obese Fluid Accumulation (N/A): N/A KENDRICK MARADIAGA MD Apr 07, 2017 10:28
--- NOTE | 2017-04-07 15:01 | PDOC ---
PULMONARY PROGRESS NOTES Subjective pt off sedation does not follow commands Vitals Vital Signs Date Time Temp Pulse Resp B/P (MAP) Pulse Ox O2 Delivery O2 Flow Rate FiO2 04/07/17 14:00 72 16 103/61 (75) 100 Ventilator 04/07/17 11:18 98.2 98.2 HEENT: Other (nc at perrl, orally intubated, nose clear, neck, no lap, thyromegaly) Lungs: Clear Cardiovascular: S1, S2 Abdomen: Soft, Non-tender, Other Extremities: No Edema Skin: Warm Labs Laboratory Tests Test 04/06/17 05:45 04/06/17 08:00 04/06/17 10:14 04/06/17 12:50 Hemoglobin 7.3 g/dL (13.0-17.5) 7.1 g/dL (13.0-17.5) Hematocrit 21.6 % (39.0-53.0) 21.2 % (39.0-53.0) Mean Corpuscular Hemoglobin Concent 34 g/dL (31-37) 34 g/dL (31-37) Prothrombin Time 14.5 SEC (11.7-14.0) Prothromb Time International Ratio 1.2 (0.8-1.1) Sodium Level 143 mmol/L (136-145) Potassium Level 3.9 mmol/L (3.5-5.1) Chloride Level 109 mmol/L (98-107) Carbon Dioxide Level 30 mmol/L (21-32) Anion Gap 4 (6-14) Blood Urea Nitrogen 28 mg/dL (8-26) Creatinine 1.2 mg/dL (0.7-1.3) Estimated GFR (Cockcroft-Gault) 58.9 Glucose Level 97 mg/dL (70-99) Calcium Level 7.3 mg/dL (8.5-10.1) O2 Saturation 94 % (92-99) Arterial Blood pH 7.41 (7.35-7.45) Arterial Blood pCO2 at Patient Temp 41 mmHg (35-46) Arterial Blood pO2 at Patient Temp 72 mmHg (65-108) Arterial Blood HCO3 26 mmol/L (21-28) Arterial Blood Base Excess 1 mmol/L (-3-3) FiO2 40 Ionized Calcium 1.12 mmol/L (1.13-1.32) Test 04/07/17 05:50 04/07/17 07:45 White Blood Count 11.3 x10^3/uL (4.0-11.0) Red Blood Count 2.75 x10^6/uL (4.30-5.70) Hemoglobin 8.1 g/dL (13.0-17.5) Hematocrit 23.4 % (39.0-53.0) Mean Corpuscular Volume 85 fL (79-100) Mean Corpuscular Hemoglobin 29 pg (25-35) Mean Corpuscular Hemoglobin Concent 34 g/dL (31-37) Red Cell Distribution Width 17.0 % (11.5-14.5) Platelet Count 117 x10^3/uL (140-400) Neutrophils (%) (Auto) 56 % (31-73) Lymphocytes (%) (Auto) 35 % (24-48) Monocytes (%) (Auto) 7 % (0-9) Eosinophils (%) (Auto) 2 % (0-3) Basophils (%) (Auto) 0 % (0-3) Neutrophils # (Auto) 6.3 x10^3uL (1.8-7.7) Lymphocytes # (Auto) 4.0 x10^3/uL (1.0-4.8) Monocytes # (Auto) 0.7 x10^3/uL (0.0-1.1) Eosinophils # (Auto) 0.3 x10^3/uL (0.0-0.7) Basophils # (Auto) 0.0 x10^3/uL (0.0-0.2) Prothrombin Time 13.6 SEC (11.7-14.0) Prothromb Time International Ratio 1.1 (0.8-1.1) Sodium Level 143 mmol/L (136-145) Potassium Level 3.8 mmol/L (3.5-5.1) Chloride Level 112 mmol/L (98-107) Carbon Dioxide Level 26 mmol/L (21-32) Anion Gap 5 (6-14) Blood Urea Nitrogen 29 mg/dL (8-26) Creatinine 1.1 mg/dL (0.7-1.3) Estimated GFR (Cockcroft-Gault) 65.1 Glucose Level 84 mg/dL (70-99) Calcium Level 7.5 mg/dL (8.5-10.1) O2 Saturation 97 % (92-99) Arterial Blood pH 7.44 (7.35-7.45) Arterial Blood pCO2 at Patient Temp 34 mmHg (35-46) Arterial Blood pO2 at Patient Temp 110 mmHg (65-108) Arterial Blood HCO3 22 mmol/L (21-28) Arterial Blood Base Excess -2 mmol/L (-3-3) FiO2 40 Laboratory Tests Test 04/07/17 05:50 04/07/17 07:45 White Blood Count 11.3 x10^3/uL (4.0-11.0) Red Blood Count 2.75 x10^6/uL (4.30-5.70) Hemoglobin 8.1 g/dL (13.0-17.5) Hematocrit 23.4 % (39.0-53.0) Mean Corpuscular Volume 85 fL (79-100) Mean Corpuscular Hemoglobin 29 pg (25-35) Mean Corpuscular Hemoglobin Concent 34 g/dL (31-37) Red Cell Distribution Width 17.0 % (11.5-14.5) Platelet Count 117 x10^3/uL (140-400) Neutrophils (%) (Auto) 56 % (31-73) Lymphocytes (%) (Auto) 35 % (24-48) Monocytes (%) (Auto) 7 % (0-9) Eosinophils (%) (Auto) 2 % (0-3) Basophils (%) (Auto) 0 % (0-3) Neutrophils # (Auto) 6.3 x10^3uL (1.8-7.7) Lymphocytes # (Auto) 4.0 x10^3/uL (1.0-4.8) Monocytes # (Auto) 0.7 x10^3/uL (0.0-1.1) Eosinophils # (Auto) 0.3 x10^3/uL (0.0-0.7) Basophils # (Auto) 0.0 x10^3/uL (0.0-0.2) Prothrombin Time 13.6 SEC (11.7-14.0) Prothromb Time International Ratio 1.1 (0.8-1.1) Sodium Level 143 mmol/L (136-145) Potassium Level 3.8 mmol/L (3.5-5.1) Chloride Level 112 mmol/L (98-107) Carbon Dioxide Level 26 mmol/L (21-32) Anion Gap 5 (6-14) Blood Urea Nitrogen 29 mg/dL (8-26) Creatinine 1.1 mg/dL (0.7-1.3) Estimated GFR (Cockcroft-Gault) 65.1 Glucose Level 84 mg/dL (70-99) Calcium Level 7.5 mg/dL (8.5-10.1) O2 Saturation 97 % (92-99) Arterial Blood pH 7.44 (7.35-7.45) Arterial Blood pCO2 at Patient Temp 34 mmHg (35-46) Arterial Blood pO2 at Patient Temp 110 mmHg (65-108) Arterial Blood HCO3 22 mmol/L (21-28) Arterial Blood Base Excess -2 mmol/L (-3-3) FiO2 40 Medications Active Scripts Medications Dose Route/Sig Max Daily Dose Days Date Category Augmentin 875-125 Tablet (Amoxicillin/Potassium Clav) 1 Each Tablet 1 Tab PO BID 01/03/17 Reported Proair Hfa (Albuterol Sulfate) 8.5 Gm Hfa.aer.ad 9 Gm IH 01/03/17 Reported Proscar (Finasteride) 5 Mg Tablet 1 Tab PO DAILY 01/03/17 Reported NITROGLYCERIN SubLingual (Nitroglycerin) 0.4 Mg Tab.subl 1 Tab SL UD 01/03/17 Reported Coumadin (Warfarin Sodium) 3 Mg Tablet 1 Tab PO DAILY 01/03/17 Reported Proair Hfa Inhaler (Albuterol Sulfate) 8.5 Gm Hfa.aer.ad 1-2 Inh IH Q4-6 HRS PRN 03/22/14 Reported Lipitor (Atorvastatin Calcium) 80 Mg Tablet 80 Mg PO DAILY 03/22/14 Reported Impression . IMPRESSION: 1. Acute hypoxic respiratory failure, most likely related to acute lung injury 2. Acute hemorrhagic shock resulting from retroperitoneal bleed s/p embolization 3. asthma. 4. chronic atrial fibrillation. 5. Acute kidney injury related to acute tubular necrosis from shock, improved renal signed off 6. Leukocytosis 7. Hypovolemic shock 8. Severe protein-calorie malnutrition. 9. Lactic acidosis secondary to hypoperfusion from shock. 10 Bilateral effusion Plan . 1. Not ready for trial 2. Broad-spectrum antibiotics. 3. Follow white cell count. 4. Follow blood cultures. 5. elevate hob. 6. s/p 4 PRBC transfusion, 4 ffp. 7. Follow serial hemoglobin. 8. titrate off pressors 9. Bronchodilators. 10. Vitamin K and FFP as needed. JINNY DOWELL MD Apr 07, 2017 15:01
[2017-04-07] MEDS: ATORVASTATIN CALCIUM 40 MG TABLET. PO SCH (23:57)
[2017-04-08] VITALS (24 sets, daily range): BP systolic 98–131; BP diastolic 50–75
[2017-04-08 06:36] LABS: INR 1.1 (0.8-1.1); PROTHROMBIN TIME PATIENT 13.7 SEC (11.7-14.0)
[2017-04-08] MEDS: ALBUTEROL SULFATE 2.5 MG/3 ML NEBU. NEB PRN ×3 (08:02→19:31)
--- NOTE | 2017-04-08 08:04 | PDOC ---
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 SKIN: No rash IV: ok Labs Lab Laboratory Tests Test 04/08/17 06:00 Prothrombin Time 13.7 SEC (11.7-14.0) Prothromb Time International Ratio 1.1 (0.8-1.1) Albumin 1.6 g/dL (3.4-5.0) Micro SPUTUM CULTURE PRL Final Final report SPUTUM CULT RES 1 Final Klebsiella pneumoniae Moderate growth ANTIMICROBIAL SUSCEPTIBILITY Final Comment S = Susceptible; I = Intermediate; R = Resistant P = Positive; N = Negative MICS are expressed in micrograms per mL Antibiotic RSLT#1 RSLT#2 RSLT#3 RSLT#4 Amoxicillin/Clavulanic Acid S Ampicillin R Cefepime S Ceftriaxone S Cefuroxime S Ciprofloxacin S Ertapenem S Gentamicin S Imipenem S Levofloxacin S Piperacillin R Tetracycline S Tobramycin S Trimethoprim/Sulfa S Performed at: [address] [id number] Objective Assessment Sepsis vs SIRS - on Levophed Fever Leukocytosis, trending down Retroperitoneal bleed s/p 04/03 Selective/superselective right iliac arteriogram.Trans-microcatheter Gelfoam slurry and microcoil embolization of right iliolumbar artery Aspiration -vomiting 04/03. Kleb MARTHA on HD Resp failure Levoflox allergy - tendon rupture/Bactrim allergy - sores Afib Plan Plan of Care continue rocephine supportive care WILFRID AGUILAR MD Apr 08, 2017 08:04
[2017-04-08] MEDS: PANTOPRAZOLE IV PUSH 40 MG VIAL. IVP SCH (08:13)
[2017-04-08] MEDS: CHLORHEXIDINE 0.12% 15 ML MOUTHWASH. MM SCH ×2 (08:18→20:46)
[2017-04-08 08:19] LABS: HCO3 ABG 23 mmol/L (21-28); PCO2 ABG 34 mmHg (35-46); PH ABG 7.45 (7.35-7.45); PO2 ABG 99 mmHg (65-108); SAT O2 ABG 97 % (92-99)
[2017-04-08 08:21] LABS: FIO2 ABG 40
--- NOTE | 2017-04-08 08:43 | PDOC ---
PULMONARY PROGRESS NOTES Subjective pt off sedation since 04/06 Vitals Vital Signs Date Time Temp Pulse Resp B/P (MAP) Pulse Ox O2 Delivery O2 Flow Rate FiO2 04/08/17 08:02 100 Ventilator 04/08/17 07:00 69 12 108/62 (77) 04/08/17 04:00 98.8 98.8 HEENT: Other (nc at perrl, orally intubated, nose clear, neck, no lap, thyromegaly) Lungs: Clear Cardiovascular: S1, S2 Abdomen: Soft, Non-tender, Other Extremities: No Edema Skin: Warm Labs Laboratory Tests Test 04/06/17 10:14 04/06/17 12:50 04/07/17 05:50 04/07/17 07:45 Ionized Calcium 1.12 mmol/L (1.13-1.32) Hemoglobin 7.1 g/dL (13.0-17.5) 8.1 g/dL (13.0-17.5) Hematocrit 21.2 % (39.0-53.0) 23.4 % (39.0-53.0) Mean Corpuscular Hemoglobin Concent 34 g/dL (31-37) 34 g/dL (31-37) White Blood Count 11.3 x10^3/uL (4.0-11.0) Red Blood Count 2.75 x10^6/uL (4.30-5.70) Mean Corpuscular Volume 85 fL (79-100) Mean Corpuscular Hemoglobin 29 pg (25-35) Red Cell Distribution Width 17.0 % (11.5-14.5) Platelet Count 117 x10^3/uL (140-400) Neutrophils (%) (Auto) 56 % (31-73) Lymphocytes (%) (Auto) 35 % (24-48) Monocytes (%) (Auto) 7 % (0-9) Eosinophils (%) (Auto) 2 % (0-3) Basophils (%) (Auto) 0 % (0-3) Neutrophils # (Auto) 6.3 x10^3uL (1.8-7.7) Lymphocytes # (Auto) 4.0 x10^3/uL (1.0-4.8) Monocytes # (Auto) 0.7 x10^3/uL (0.0-1.1) Eosinophils # (Auto) 0.3 x10^3/uL (0.0-0.7) Basophils # (Auto) 0.0 x10^3/uL (0.0-0.2) Prothrombin Time 13.6 SEC (11.7-14.0) Prothromb Time International Ratio 1.1 (0.8-1.1) Sodium Level 143 mmol/L (136-145) Potassium Level 3.8 mmol/L (3.5-5.1) Chloride Level 112 mmol/L (98-107) Carbon Dioxide Level 26 mmol/L (21-32) Anion Gap 5 (6-14) Blood Urea Nitrogen 29 mg/dL (8-26) Creatinine 1.1 mg/dL (0.7-1.3) Estimated GFR (Cockcroft-Gault) 65.1 Glucose Level 84 mg/dL (70-99) Calcium Level 7.5 mg/dL (8.5-10.1) O2 Saturation 97 % (92-99) Arterial Blood pH 7.44 (7.35-7.45) Arterial Blood pCO2 at Patient Temp 34 mmHg (35-46) Arterial Blood pO2 at Patient Temp 110 mmHg (65-108) Arterial Blood HCO3 22 mmol/L (21-28) Arterial Blood Base Excess -2 mmol/L (-3-3) FiO2 40 Test 04/08/17 06:00 04/08/17 08:10 Prothrombin Time 13.7 SEC (11.7-14.0) Prothromb Time International Ratio 1.1 (0.8-1.1) Albumin 1.6 g/dL (3.4-5.0) O2 Saturation 97 % (92-99) Arterial Blood pH 7.45 (7.35-7.45) Arterial Blood pCO2 at Patient Temp 34 mmHg (35-46) Arterial Blood pO2 at Patient Temp 99 mmHg (65-108) Arterial Blood HCO3 23 mmol/L (21-28) Arterial Blood Base Excess -1 mmol/L (-3-3) FiO2 40 Laboratory Tests Test 04/08/17 06:00 04/08/17 08:10 Prothrombin Time 13.7 SEC (11.7-14.0) Prothromb Time International Ratio 1.1 (0.8-1.1) Albumin 1.6 g/dL (3.4-5.0) O2 Saturation 97 % (92-99) Arterial Blood pH 7.45 (7.35-7.45) Arterial Blood pCO2 at Patient Temp 34 mmHg (35-46) Arterial Blood pO2 at Patient Temp 99 mmHg (65-108) Arterial Blood HCO3 23 mmol/L (21-28) Arterial Blood Base Excess -1 mmol/L (-3-3) FiO2 40 Medications Active Scripts Medications Dose Route/Sig Max Daily Dose Days Date Category Augmentin 875-125 Tablet (Amoxicillin/Potassium Clav) 1 Each Tablet 1 Tab PO BID 01/03/17 Reported Proair Hfa (Albuterol Sulfate) 8.5 Gm Hfa.aer.ad 9 Gm IH 01/03/17 Reported Proscar (Finasteride) 5 Mg Tablet 1 Tab PO DAILY 01/03/17 Reported NITROGLYCERIN SubLingual (Nitroglycerin) 0.4 Mg Tab.subl 1 Tab SL UD 01/03/17 Reported Coumadin (Warfarin Sodium) 3 Mg Tablet 1 Tab PO DAILY 01/03/17 Reported Proair Hfa Inhaler (Albuterol Sulfate) 8.5 Gm Hfa.aer.ad 1-2 Inh IH Q4-6 HRS PRN 03/22/14 Reported Lipitor (Atorvastatin Calcium) 80 Mg Tablet 80 Mg PO DAILY 03/22/14 Reported Impression . IMPRESSION: 1. Acute hypoxic respiratory failure, most likely related to acute lung injury 2. Acute hemorrhagic shock resulting from retroperitoneal bleed s/p embolization 3. asthma. 4. chronic atrial fibrillation. 5. Acute kidney injury related to acute tubular necrosis from shock, improved renal signed off 6. Leukocytosis 7. Hypovolemic shock 8. Severe protein-calorie malnutrition. 9. Lactic acidosis secondary to hypoperfusion from shock. 10 Bilateral effusion Plan . pt still not fully awake will hold off on any trial continue the same 1. Not ready for trial 2. Broad-spectrum antibiotics. 3. Follow white cell count. 4. Follow blood cultures. 5. elevate hob. 6. s/p 4 PRBC transfusion, 4 ffp. 7. Follow serial hemoglobin. 8. titrate off pressors 9. Bronchodilators. 10. Vitamin K and FFP as needed. JINNY DOWELL MD Apr 08, 2017 08:43
--- NOTE | 2017-04-08 08:50 | RAD ---
Indication respiratory failure. Single view of the chest was obtained and is compared to a study one day earlier. There has been little change. Heart and pulmonary vessels are similar. Pleural effusions are also similar. Heart and pulmonary vessels are unchanged. Right-sided dialysis catheter and IJ catheter are noted. Endotracheal tube is appropriately positioned above the kenn. There is a nasogastric tube with its tip beyond the mid body of the stomach. Bipolar cardiac pacing device is noted. IMPRESSION: No significant change
--- NOTE | 2017-04-08 11:17 | PDOC ---
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 1117: CARDIO Progress Notes Date and Time Date of Service 04/08/2017 Time of Evaluation 1020 Subjective Subjective: Other (unresponsive) Vitals Vitals Vital Signs Date Time Temp Pulse Resp B/P (MAP) Pulse Ox O2 Delivery O2 Flow Rate FiO2 04/08/17 11:02 100 Ventilator 04/08/17 11:00 71 19 121/63 (82) 04/08/17 08:00 100.2 100.2 Weight Weight [ ] Input and Output Intake and Output Intake and Output 04/08/17 07:00 Intake Total 1759 ml Output Total 1147 ml Balance 612 ml Intake Oral 0 ml IV Total 919 ml Tube Feeding 750 ml Other 90 ml Output Urine Total 1147 ml Gastric Drainage Total 0 ml Laboratory Labs Laboratory Tests Test 04/08/17 06:00 04/08/17 08:10 Prothrombin Time 13.7 SEC (11.7-14.0) Prothromb Time International Ratio 1.1 (0.8-1.1) Albumin 1.6 g/dL (3.4-5.0) O2 Saturation 97 % (92-99) Arterial Blood pH 7.45 (7.35-7.45) Arterial Blood pCO2 at Patient Temp 34 mmHg (35-46) Arterial Blood pO2 at Patient Temp 99 mmHg (65-108) Arterial Blood HCO3 23 mmol/L (21-28) Arterial Blood Base Excess -1 mmol/L (-3-3) FiO2 40 Microbiology Micro Microbiology 04/03/17 Blood Culture - Preliminary, Resulted NO GROWTH AFTER 4 DAYS 04/04/17 Gram Stain - Final, Complete Review of Systems Constitutional: yes: no symptom reported Physical Exam HEENT: Neck Supple W Full Motion Chest: Symmetric LUNGS: Other (intubated with vent, diminiahed) Heart: S1S2, RRR (V paced with underlying atrial flutter) Abdomen: Soft N/T Extremities: No Calf Tenderness, Other (anasarca) Neurology: other (unresponsive, off sedation) Assessment Assessment 1. Retroperitoneal bleed: S/P embolization to right iliolumbar artery 2. Acute Respiratory failure with likely aspiration 3. Anoxic encephalopathy: Significant hypoperfusion with significant anemia. Off sedation since 04/06 and remains unresponsive. 4. Hypotension/sepsis: off levophed, BP stable 5. Hx of PAFIB with coumadin therapy: V pacing with underlying atrial flutter, no significant ectopies 5. CAD: PCI/stent 2011. no cardiac symptoms prior to admission with good activity tolerance. TTE with normal EF and LV systolic function. Stable 6. 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 Hx of tachy-monse syndrome, normal device. 7. Anemia: S/P FFP and PRBC, Hgb 8.1. 8. MARTHA: resolved per nephrology 9. Hx of large PFO: see below Recommendations 1. No further OAC/NOAC. Future stroke prevention measures would be ASA once Ok with others. Consult neurology if ok with PCP 2. Likely intolerant to AV jules blocking agents. Follows with [facility] and accdg to no home antiarrhythmics. 3. Maintain supportive care. [facility] records review 12/14/2015 Successful AV jules ablation with noted intolerance to AV jules blocking agents. Dual chamber pacemaker 03/14/[address] España. 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 03/30/2012 MRI has confirmed the lipomatous mass 2.7 x 4.1 cm spares the fossa ovalis. 06/2012 PCI/BMS to LAD Hx of bells palsy and COPD 01/23/2012 TTE lipomatous hypertrophy of interatrial septum 11/2015 MPI no evidence of ischemia NIMCO: EF 45% with mild depressed LV function, RV poorly seen. LA severely dilated, MELISSA free of thrombus, interatrial septum aneurysmal with large PFO bidirectional shunt, mild to mod AI, Lipomatous hypertrophy to interatrial septum to superior margin of septum at 3 cm. JUAN WHIPPLE MD 04/08/17 4850: CARDIO Progress Notes Plan Plan Pt. seen and examined. Agree with above TECHNICAL SME note. Continues to remain intubated. No major changes in cardiac function. No significant edema noted. Supportive care for now. No major changes today from CV perspective. ASA is a poor anticoagulant for stroke prevention and higher risk to cause GIB. Ultimately, may benefit from left atrial appendage occlusion device if he recovers from his acute insult. Will follow along. HENNA HOBBS APRN Apr 08, 2017 11:17 JUAN WHIPPLE MD Apr 08, 2017 22:53
--- NOTE | 2017-04-08 11:52 | PDOC ---
PROGRESS NOTES Chief Complaint Chief Complaint cc: retroperitoneal bleed A/P 1. Retroperitoneal bleed: S/P microcoil embolization of right iliolumbar artery : hemoglobin stable. IR following. 2. Acute anemia of blood loss from above: s/p PRBC AND S/P FFP, monitor hemoglobin, stable at 8 3. Coumadin coagulopathy: stop coumadin 4. Septic shock possible aspiration: Klebsiella pneumoniae ID following. 5, Acute respiratory failure on mechanical ventilation,: Daily CXR, pulmonology following. off sedation, 6. Shock: off Levophed decrease IV hydration, 7. Chronic lumbago, hypothyroidism, 8. Renal failure: Temp HD catheter and HD, Cr improving. renal following. 9. Afib, pacemaker , stopped Coumadin, pacer in situ. 10. condition:critical, prognosis poor/ guarded. 11. Encephalopathy: off sedation, not responding to questions, consult neurology , possible imaging. 12. NO lovenox due to bleeding risk,RUBI/PAS stockings, d/w family, answered all questions, Vitals Vitals Vital Signs Date Time Temp Pulse Resp B/P (MAP) Pulse Ox O2 Delivery O2 Flow Rate FiO2 04/08/17 11:02 100 Ventilator 04/08/17 11:00 71 19 121/63 (82) 04/08/17 08:00 100.2 100.2 Physical Exam General: Other (off sedation, non verbal) Heart: Regular rate, Normal S1, Normal S2 Lungs: Clear Abdomen: Normal bowel sounds, Other (less distention) Extremities: No clubbing, No cyanosis, Other (edema) Skin: Other (no bruising) Labs LABS Laboratory Tests Test 04/08/17 06:00 04/08/17 08:10 Prothrombin Time 13.7 SEC (11.7-14.0) Prothromb Time International Ratio 1.1 (0.8-1.1) Albumin 1.6 g/dL (3.4-5.0) O2 Saturation 97 % (92-99) Arterial Blood pH 7.45 (7.35-7.45) Arterial Blood pCO2 at Patient Temp 34 mmHg (35-46) Arterial Blood pO2 at Patient Temp 99 mmHg (65-108) Arterial Blood HCO3 23 mmol/L (21-28) Arterial Blood Base Excess -1 mmol/L (-3-3) FiO2 40 Assessment and Plan Assessmemt and Plan Problems Medical Problems: (1) Anticoagulated Status: Acute (2) Retroperitoneal bleed Status: Acute Problems: Comment Review of Relevant I have reviewed the following items sarbjit (where applicable) has been applied. Labs Laboratory Tests Test 04/06/17 12:50 04/07/17 05:50 04/07/17 07:45 04/08/17 06:00 Hemoglobin 7.1 g/dL (13.0-17.5) 8.1 g/dL (13.0-17.5) Hematocrit 21.2 % (39.0-53.0) 23.4 % (39.0-53.0) Mean Corpuscular Hemoglobin Concent 34 g/dL (31-37) 34 g/dL (31-37) White Blood Count 11.3 x10^3/uL (4.0-11.0) Red Blood Count 2.75 x10^6/uL (4.30-5.70) Mean Corpuscular Volume 85 fL (79-100) Mean Corpuscular Hemoglobin 29 pg (25-35) Red Cell Distribution Width 17.0 % (11.5-14.5) Platelet Count 117 x10^3/uL (140-400) Neutrophils (%) (Auto) 56 % (31-73) Lymphocytes (%) (Auto) 35 % (24-48) Monocytes (%) (Auto) 7 % (0-9) Eosinophils (%) (Auto) 2 % (0-3) Basophils (%) (Auto) 0 % (0-3) Neutrophils # (Auto) 6.3 x10^3uL (1.8-7.7) Lymphocytes # (Auto) 4.0 x10^3/uL (1.0-4.8) Monocytes # (Auto) 0.7 x10^3/uL (0.0-1.1) Eosinophils # (Auto) 0.3 x10^3/uL (0.0-0.7) Basophils # (Auto) 0.0 x10^3/uL (0.0-0.2) Prothrombin Time 13.6 SEC (11.7-14.0) 13.7 SEC (11.7-14.0) Prothromb Time International Ratio 1.1 (0.8-1.1) 1.1 (0.8-1.1) Sodium Level 143 mmol/L (136-145) Potassium Level 3.8 mmol/L (3.5-5.1) Chloride Level 112 mmol/L (98-107) Carbon Dioxide Level 26 mmol/L (21-32) Anion Gap 5 (6-14) Blood Urea Nitrogen 29 mg/dL (8-26) Creatinine 1.1 mg/dL (0.7-1.3) Estimated GFR (Cockcroft-Gault) 65.1 Glucose Level 84 mg/dL (70-99) Calcium Level 7.5 mg/dL (8.5-10.1) O2 Saturation 97 % (92-99) Arterial Blood pH 7.44 (7.35-7.45) Arterial Blood pCO2 at Patient Temp 34 mmHg (35-46) Arterial Blood pO2 at Patient Temp 110 mmHg (65-108) Arterial Blood HCO3 22 mmol/L (21-28) Arterial Blood Base Excess -2 mmol/L (-3-3) FiO2 40 Albumin 1.6 g/dL (3.4-5.0) Test 04/08/17 08:10 O2 Saturation 97 % (92-99) Arterial Blood pH 7.45 (7.35-7.45) Arterial Blood pCO2 at Patient Temp 34 mmHg (35-46) Arterial Blood pO2 at Patient Temp 99 mmHg (65-108) Arterial Blood HCO3 23 mmol/L (21-28) Arterial Blood Base Excess -1 mmol/L (-3-3) FiO2 40 Laboratory Tests Test 04/08/17 06:00 04/08/17 08:10 Prothrombin Time 13.7 SEC (11.7-14.0) Prothromb Time International Ratio 1.1 (0.8-1.1) Albumin 1.6 g/dL (3.4-5.0) O2 Saturation 97 % (92-99) Arterial Blood pH 7.45 (7.35-7.45) Arterial Blood pCO2 at Patient Temp 34 mmHg (35-46) Arterial Blood pO2 at Patient Temp 99 mmHg (65-108) Arterial Blood HCO3 23 mmol/L (21-28) Arterial Blood Base Excess -1 mmol/L (-3-3) FiO2 40 Microbiology 04/03/17 Blood Culture - Preliminary, Resulted NO GROWTH AFTER 4 DAYS 04/04/17 Gram Stain - Final, Complete Medications Current Medications Hydromorphone HCl (Dilaudid) 0.5 mg 1X ONCE IV Last administered on 04/02/17 03:31; Start 04/02/17 at 03:15; Stop 04/02/17 at 03:40; Status DC Ondansetron HCl (Zofran) 4 mg 1X ONCE IV Last administered on 04/02/17 03:31 ; Start 04/02/17 at 03:15; Stop 04/02/17 at 03:40; Status DC Sodium Chloride 1,000 ml @ 1,000 mls/hr 1X ONCE IV Last administered on 03:31; Start 04/02/17 at 03:15; Stop 04/02/17 at 04:14; Status DC Ondansetron HCl (Zofran) 4 mg PRN Q8HRS PRN IV NAUSEA/VOMITING Last administered on 04/02/17 16:23; Start 04/02/17 at 04:15; Stop 04/03/17 at 04:14 ; Status DC Fentanyl Citrate (Fentanyl 2ml Vial) 50 mcg PRN Q1HR PRN IV PAIN Last administered on 04/02/17 15:18; Start 04/02/17 at 04:15; Stop 04/03/17 at 04:14 ; Status DC Acetaminophen (Tylenol) 650 mg PRN Q4HRS PRN PO FEVER; Start 04/02/17 at 04:15 ; Stop 04/03/17 at 04:14; Status DC Phytonadione (Vitamin K) 2 mg 1X ONCE SQ Last administered on 04/02/17 15:25 ; Start 04/02/17 at 12:00; Stop 04/02/17 at 12:01; Status DC Hydromorphone HCl (Dilaudid) 1 mg PRN Q2HRS PRN IVP PAIN Last administered on 09:54; Start 04/02/17 at 16:15 Ondansetron HCl (Zofran) 4 mg PRN Q6HRS PRN IV NAUSEA/VOMITING; Start 04/03/17 at 08:30 Pantoprazole Sodium (Protonix) 40 mg DAILYAC PO ; Start 04/03/17 at 09:00; Stop 04/04/17 at 11:21; Status DC Albuterol Sulfate (Ventolin Hfa) 1 puff Q2HR PRN IH soa; Start 04/03/17 at 08: 30; Status UNV Amoxicillin/ Clavulanate Potassium (Augmentin 875/ 125mg) 1 tab BIDWMEALS PO Last administered on 04/03/17 18:12; Start 04/03/17 at 09:00; Stop 04/04/17 at 07:31; Status DC Nitroglycerin (Nitrostat) 0.4 mg PRN Q5MIN PRN SL cp; Start 04/03/17 at 08:30 Atorvastatin Calcium (Lipitor) 80 mg QHS PO Last administered on 04/07/17 23: 57; Start 04/03/17 at 21:00 Albuterol Sulfate (Ventolin Neb Soln) 2.5 mg PRN Q2HRS PRN NEB SHORTNESS OF BREATH Last administered on 04/08/17 11:01; Start 04/03/17 at 08:45 Sodium Chloride 1,000 ml @ 150 mls/hr Q6H40M IV Last administered on 05:37; Start 04/03/17 at 09:00; Stop 04/08/17 at 11:39; Status DC Sodium Chloride 1,000 ml @ 1,000 mls/hr 1X ONCE IV Last administered on 09:00; Start 04/03/17 at 09:00; Stop 04/03/17 at 09:59; Status DC Norepinephrine Bitartrate 250 ml @ 0 mls/hr CONT PRN IV SEE I/O RECORD Last administered on 04/05/17 17:14; Start 04/03/17 at 11:00 Iohexol (Omnipaque 350 Mg/ml) 90 ml 1X ONCE IV Last administered on 04/03/17 12:27; Start 04/03/17 at 12:15; Stop 04/03/17 at 12:16; Status DC Iohexol (Omnipaque 300 Mg/ml) 50 ml STK-MED ONCE .ROUTE ; Start 04/03/17 at 13: 27; Stop 04/03/17 at 13:28; Status DC Iohexol (Omnipaque 300 Mg/ml) 100 ml STK-MED ONCE .ROUTE ; Start 04/03/17 at 13: 27; Stop 04/03/17 at 13:28; Status DC Lidocaine/Sodium Bicarbonate (Buffered Lidocaine 1%) 20 ml STK-MED ONCE IJ ; Start 04/03/17 at 13:27; Stop 04/03/17 at 13:28; Status DC Heparin Sodium/ Sodium Chloride 1,500 ml @ As Directed STK-MED ONCE .ROUTE ; Start 04/03/17 at 13:28; Stop 04/03/17 at 13:29; Status DC Gelatin (Gelfoam Size 12-7mm) 1 each STK-MED ONCE .ROUTE ; Start 04/03/17 at 13 :52; Stop 04/03/17 at 13:53; Status DC Fentanyl Citrate (Fentanyl 2ml Vial) 100 mcg STK-MED ONCE .ROUTE ; Start at 13:54; Stop 04/03/17 at 13:55; Status DC Midazolam HCl (Versed) 2 mg STK-MED ONCE .ROUTE ; Start 04/03/17 at 13:54; Stop 04/03/17 at 13:55; Status DC Rocuronium Thatcher (Zemuron) 50 mg STK-MED ONCE .ROUTE ; Start 04/03/17 at 14:30 ; Stop 04/03/17 at 14:31; Status DC Propofol 20 ml @ As Directed STK-MED ONCE IV ; Start 04/03/17 at 14:30; Stop at 14:31; Status DC Succinylcholine Chloride (Anectine) 200 mg STK-MED ONCE .ROUTE ; Start 04/03/17 at 14:32; Stop 04/03/17 at 14:33; Status DC Iohexol (Omnipaque 300 Mg/ml) 100 ml STK-MED ONCE .ROUTE ; Start 04/03/17 at 14: 53; Stop 04/03/17 at 14:54; Status DC Propofol 100 ml @ As Directed STK-MED ONCE IV ; Start 04/03/17 at 15:16; Stop 04/03/17 at 15:17; Status DC Heparin Sodium/ Sodium Chloride 1,000 unit 1X ONCE IART Last administered on t 16:46; Start 04/03/17 at 15:30; Stop 04/03/17 at 15:31; Status DC Lidocaine/Sodium Bicarbonate (Buffered Lidocaine 1%) 20 ml 1X ONCE IJ Last administered on 04/03/17t 16:46; Start 04/03/17 at 15:30; Stop 04/03/17 at 15:31 ; Status DC Midazolam HCl (Versed) 1 mg 1X ONCE IV Last administered on 04/03/17 16:55; Start 04/03/17 at 14:00; Stop 04/03/17 at 15:23; Status DC Fentanyl Citrate (Fentanyl 2ml Vial) 50 mcg 1X ONCE IV Last administered on 16:56; Start 04/03/17 at 14:00; Stop 04/03/17 at 15:23; Status DC Iohexol (Omnipaque 300 Mg/ml) 100 ml 1X ONCE IART Last administered on 16:45; Start 04/03/17 at 15:30; Stop 04/03/17 at 15:31; Status DC Ondansetron HCl (Zofran) 4 mg 1X ONCE IV Last administered on 04/03/17 16:48 ; Start 04/03/17 at 14:08; Stop 04/03/17 at 15:23; Status DC Gelatin (Gelfoam Size 12-7mm) 1 each STK-MED ONCE .ROUTE ; Start 04/03/17 at 15 :41; Stop 04/03/17 at 15:42; Status DC Nitroglycerin (Nitroglycerin) 200 mcg 1X ONCE IART Last administered on 16:47; Start 04/03/17 at 16:15; Stop 04/03/17 at 16:16; Status DC Chlorhexidine Gluconate (Peridex) 15 ml BID MM Last administered on 04/08/17 08:18; Start 04/03/17 at 21:00 Propofol 100 ml @ 0 mls/hr CONT PRN IV SEE I/O RECORD; Start 04/03/17 at 17:15 Sodium Bicarbonate 100 meq 1X ONCE IV Last administered on 04/03/17 18:12; Start 04/03/17 at 18:00; Stop 04/03/17 at 18:01; Status DC Sodium Bicarbonate 100 meq 1X ONCE IV Last administered on 04/03/17 21:04; Start 04/03/17 at 20:15; Stop 04/03/17 at 20:16; Status DC Phenylephrine HCl 20 mg/Sodium Chloride 252 ml @ 0 mls/hr CONT PRN IV SEE I/O RECORD; Start 04/03/17 at 21:45 Sodium Chloride 1,000 ml @ 1,000 mls/hr 1X ONCE IV Last administered on 22:08; Start 04/03/17 at 21:45; Stop 04/03/17 at 22:44; Status DC Midazolam HCl 100 ml @ 0 mls/hr CONT PRN IV SEE I/O RECORD Last administered on 04/05/17 23:06; Start 04/03/17 at 21:45 Vancomycin HCl (Vanco Per Pharmacy) 1 each PRN DAILY PRN MC SEE COMMENTS Last administered on 04/03/17 22:01; Start 04/03/17 at 22:00; Stop 04/04/17 at 07:29 ; Status DC Piperacillin Sod/ Tazobactam Sod (Zosyn Per Pharmacy) 1 each PRN DAILY PRN MC SEE COMMENTS; Start 04/03/17 at 22:00; Stop 04/04/17 at 07:29; Status DC Vancomycin HCl 2 gm/Sodium Chloride 500 ml @ 250 mls/hr 1X ONCE IV Last administered on 04/03/17 22:09; Start 04/03/17 at 22:00; Stop 04/03/17 at 23:59 ; Status DC Piperacillin Sod/ Tazobactam Sod 4.5 gm/Sodium Chloride 100 ml @ 200 mls/hr Q6HRS IV Last administered on 04/04/17 05:37; Start 04/04/17 at 00:00; Stop at 07:29; Status DC Vancomycin HCl 1.25 gm/Sodium Chloride 250 ml @ 167 mls/hr Q12H IV ; Start at 10:00; Stop 04/04/17 at 10:00; Status DC Vancomycin HCl 1 each 1X ONCE MC ; Start 04/05/17 at 09:30; Stop 04/05/17 at 09 :31; Status Cancel Sodium Chloride 1,000 ml @ 1,000 mls/hr 1X ONCE IV Last administered on 23:27; Start 04/03/17 at 23:30; Stop 04/04/17 at 00:29; Status DC Sodium Chloride 500 ml @ 500 mls/hr 1X ONCE IV Last administered on 00:28; Start 04/04/17 at 00:30; Stop 04/04/17 at 01:30; Status DC Vancomycin HCl 1.5 gm/Sodium Chloride 500 ml @ 250 mls/hr Q24H IV ; Start 04/04 at 22:00; Stop 04/04/17 at 22:00; Status DC Piperacillin Sod/ Tazobactam Sod 2.25 gm/Sodium Chloride 50 ml @ 100 mls/hr Q6HRS IV Last administered on 04/07/17 05:37; Start 04/04/17 at 12:00; Stop at 08:12; Status DC Lidocaine/Sodium Bicarbonate (Buffered Lidocaine 1%) 3 ml 1X ONCE IJ Last administered on 04/04/17 09:15; Start 04/04/17 at 09:15; Stop 04/04/17 at 09:16 ; Status DC Heparin Sodium/ Sodium Chloride 60 unit 1X ONCE IV Last administered on 09:51; Start 04/04/17 at 09:15; Stop 04/04/17 at 09:16; Status DC Heparin Sodium (Porcine) (Heparin Sodium) 10,000 unit STK-MED ONCE .ROUTE ; Start 04/04/17 at 09:17; Stop 04/04/17 at 09:18; Status DC Micafungin Sodium 100 mg/Dextrose 100 ml @ 100 mls/hr Q24H IV Last administered on 04/06/17 09:35; Start 04/04/17 at 10:00; Stop 04/07/17 at 08:12 ; Status DC Pantoprazole Sodium (Protonix Vial) 40 mg DAILYAC IVP Last administered on 04/08 08:13; Start 04/04/17 at 11:30 Lidocaine/Sodium Bicarbonate (Buffered Lidocaine 1%) 3 ml 1X ONCE IJ Last administered on 04/04/17 11:59; Start 04/04/17 at 11:30; Stop 04/04/17 at 11:31 ; Status DC Heparin Sodium/ Sodium Chloride 60 unit 1X ONCE IV Last administered on 11:59; Start 04/04/17 at 11:30; Stop 04/04/17 at 11:31; Status DC Heparin Sodium (Porcine) (Heparin Sodium) 2,500 unit 1X ONCE INT CAT Last administered on 04/04/17 11:58; Start 04/04/17 at 11:30; Stop 04/04/17 at 11:31 ; Status DC Heparin Sodium (Porcine) (Heparin Sodium) 10,000 unit STK-MED ONCE .ROUTE ; Start 04/04/17 at 11:33; Stop 04/04/17 at 11:34; Status DC Darbepoetin Shukri (Aranesp) 60 mcg [id number] SQ Last administered on 04/04/17 21 :06; Start 04/04/17 at 21:00 Phytonadione 10 mg/Sodium Chloride 51 ml @ 102 mls/hr 1X ONCE IV Last administered on 04/04/17 13:16; Start 04/04/17 at 13:00; Stop 04/04/17 at 13:29 ; Status DC Sodium Chloride 1,000 ml @ 1,000 mls/hr Q1H PRN IV hypotension; Start 04/04/17 at 13:26; Stop 04/04/17 at 19:25; Status DC Diphenhydramine HCl (Benadryl) 25 mg 1X PRN PRN IV ITCHING; Start 04/04/17 at 13:30; Stop 04/05/17 at 13:29; Status DC Diphenhydramine HCl (Benadryl) 25 mg 1X PRN PRN IV ITCHING; Start 04/04/17 at 13:30; Stop 04/05/17 at 13:29; Status DC Sodium Chloride (Normal Saline Flush) 10 ml 1X PRN PRN IV AP catheter pack; Start 04/04/17 at 13:30; Stop 04/05/17 at 13:29; Status DC Sodium Chloride (Normal Saline Flush) 10 ml 1X PRN PRN IV V[employer]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; Start 04/04/17 at 13:30; Stop 04/05/17 at 13:29; Status DC Info (PHARMACY MONITORING -- do not chart) 1 each PRN DAILY PRN MC SEE COMMENTS ; Start 04/04/17 at 13:30 Calcium Gluconate (Calcium Gluconate) 1,000 mg 1X ONCE IVP Last administered on 04/06/17 11:17; Start 04/06/17 at 11:30; Stop 04/06/17 at 11:31; Status DC Vecuronium Thatcher (Norcuron Bolus) 10 mg 1X ONCE IV Last administered on 04/06 18:24; Start 04/06/17 at 18:30; Stop 04/06/17 at 18:31; Status DC Propofol 100 ml @ 0 mls/hr 1X STAT IV Last administered on 04/06/17 18:18; Start 04/06/17 at 18:18; Stop 04/06/17 at 18:28; Status DC Ceftriaxone Sodium 1 gm/ Sodium Chloride 50 ml @ 100 mls/hr Q24H IV Last administered on 04/08/17 08:27; Start 04/07/17 at 09:00 Active Scripts Active Reported Augmentin 875-125 Tablet (Amoxicillin/Potassium Clav) 1 Each Tablet 1 Tab PO BID Proair Hfa (Albuterol Sulfate) 8.5 Gm Hfa.aer.ad 9 Gm IH Proscar (Finasteride) 5 Mg Tablet 1 Tab PO DAILY NITROGLYCERIN SubLingual (Nitroglycerin) 0.4 Mg Tab.subl 1 Tab SL UD Coumadin (Warfarin Sodium) 3 Mg Tablet 1 Tab PO DAILY Proair Hfa Inhaler (Albuterol Sulfate) 8.5 Gm Hfa.aer.ad 1-2 Inh IH Q4-6 HRS PRN Lipitor (Atorvastatin Calcium) 80 Mg Tablet 80 Mg PO DAILY Vitals/I & O Vital Sign - Last 24 Hours 04/07/17 04/07/17 04/07/17 04/07/17 12:04 13:00 14:00 15:14 Temp 98.8 98.8 Pulse 69 68 72 73 Resp 16 16 16 24 B/P (MAP) 111/61 (78) 96/58 (71) 103/61 (75) 106/58 (74) Pulse Ox 100 100 100 99 O2 Delivery Ventilator Ventilator Ventilator Ventilator 04/07/17 04/07/17 04/07/17 04/07/17 15:45 16:18 16:44 17:13 Pulse 69 71 Resp 16 16 B/P (MAP) 103/57 (72) 111/56 (74) Pulse Ox 100 100 100 O2 Delivery Mechanical Ventilator Ventilator Ventilator Ventilator 04/07/17 04/07/17 04/07/17 04/07/17 18:01 19:00 19:59 20:00 Temp 98.4 98.4 Pulse 81 78 82 Resp 17 16 16 B/P (MAP) 103/54 (70) 109/56 (73) 110/56 (74) Pulse Ox 100 100 100 100 O2 Delivery Ventilator Ventilator Ventilator Ventilator 04/07/17 04/07/17 04/07/17 04/07/17 20:00 21:00 22:00 22:58 Pulse 80 80 Resp 16 16 B/P (MAP) 113/54 (73) 106/54 (71) Pulse Ox 100 100 100 O2 Delivery Mechanical Ventilator Ventilator Ventilator Ventilator 04/07/17 04/08/17 04/08/17 04/08/17 23:00 00:00 00:00 01:03 Temp 98.1 98.1 Pulse 82 84 91 Resp 19 16 16 B/P (MAP) 109/55 (73) 112/59 (76) 126/64 (84) Pulse Ox 100 100 100 O2 Delivery Ventilator Ventilator Mechanical Ventilator Ventilator 04/08/17 04/08/17 04/08/17 04/08/17 01:43 02:00 02:59 03:36 Pulse 84 86 Resp 16 20 B/P (MAP) 98/53 (68) 109/53 (71) Pulse Ox 100 100 100 100 O2 Delivery Ventilator Ventilator Ventilator Ventilator 04/08/17 04/08/17 04/08/17 04/08/17 04:00 04:00 05:00 05:40 Temp 98.8 98.8 Pulse 88 72 Resp 21 16 B/P (MAP) 119/53 (75) 127/75 (92) Pulse Ox 100 100 100 O2 Delivery Ventilator Mechanical Ventilator Ventilator Ventilator 04/08/17 04/08/17 04/08/17 04/08/17 06:00 07:00 08:00 08:00 Temp 100.2 100.2 Pulse 69 69 69 Resp 16 12 16 B/P (MAP) 111/60 (77) 108/62 (77) 102/54 (70) Pulse Ox 100 100 100 O2 Delivery Ventilator Ventilator Ventilator Mechanical Ventilator 04/08/17 04/08/17 04/08/17 04/08/17 08:02 09:00 09:49 10:00 Pulse 69 69 Resp 16 16 B/P (MAP) 111/58 (75) 101/53 (69) Pulse Ox 100 100 100 100 O2 Delivery Ventilator Ventilator Ventilator Ventilator 04/08/17 04/08/17 11:00 11:02 Pulse 71 Resp 19 B/P (MAP) 121/63 (82) Pulse Ox 100 100 O2 Delivery Ventilator Ventilator Intake and Output 04/07/17 04/07/17 04/08/17 15:00 23:00 07:00 Intake Total 30 ml 980 ml 749 ml Output Total 252 ml 505 ml 390 ml Balance -222 ml 475 ml 359 ml Nutrition Consultation Dietary Evaluation: Recommendations by RD: Increase Calorie Intake, PPN/TPN Comments: Continue TF's with: Peptamen AF, goal rate 60 ml/hr start at 20 ml/hr, increase by 20 ml/hr q8h to goal rate flushes 30 cc q8h while IVF's running Expected Outcomes/Goals: initiation of nutrition support- met tolerate the TF's at goal rate- met meet 75% estimated nutrition needs- met Interpretation of weight loss: >10% in 6 months Malnutrition Findings: Food and Nutrition Intake (Mod: <75% est energy req 7days 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
[2017-04-08] MEDS ORDERED: PIPERACILLIN/TAZOBACTAM 3.375 GM in IV NORMAL SALINE 50ML 50 ML IV SCH (17:00)
--- NOTE | 2017-04-08 17:00 | PDOC2 ---
NEUROLOGY CONSULT Date of Admission Date of Admission DATE: 04/08/17 TIME: 16:48 Reason for Consult Reason for Consult: IMPRESSION: Metabolic encephalopathy. Respiratory failure. Retroperitoneal bleeding. Acute anemia. Leukocytosis. Sepsis? Septic shock. Pamella; failure. AFib Pacemaker placement. RECOMMENDATIONS/PLAN: HCT w/o contrast. Lab: see orders. EEG if needed. Treat medical diseases. HISTORY OF THE PRESENT ILLNESS: 76-y-old male patient with above medical diseases had increased mental status changes since 04/07/17, so Neurology was called for consultation. PAST MEDICAL HISTORY: Atrial fibrillation COPD BPH Diverticulosis Vertigo Obstructive sleep apnea on CPAP. PAST SURGICAL HISTORY: Pacemaker PCI. FAMILY HISTORY: Three brothers had cancer, one was pancreatic cancer. SOCIAL HISTORY: Denies any tobacco, alcohol or drug use. . ALLERGIES: SULFA AMIODARONE BUDESONIDE FLUTICASONE LEVAQUIN MONTELUKAST SALMETEROL. MEDICATIONS: Refer to MAR REVIEW OF SYSTEMS: Constitutional: No malnutrition, weight loss, cachexia. Head: No recent traumatic brain or head injury. Skin: No edema, or rash. Ear: No infection. Eyes: No vision loss or color blindness. Nose: No bleeding or purulent discharges. Hearing: hearing decrease. Neck: No injury. Cardiac: Pacemaker Placement. Pulmonary: No COPD. GI: No GI ulcer. Urinary/genital: Renal failure. Endocrinologic: No cousin face, craniofacial dysmorphism, polydactyly. Skeletomuscular: No muscular atrophy, deformity. Neurological: see HP. Psychiatric: Denies drug use/abuse. Otherwise, not [id number] review of systems. PHYSICAL EXAMINATION: General appearance is in subacute distress. HEENT: Normocephalic and nontraumatic. Eyes, nose, ears, and throat are unremarkable. Neck is supple. No lymphadenopathy. No crepitus. Cardiovascular: S1, S2, irregular rate and rhythm. Pulmonary: Clear to auscultation bilaterally. Abdomen: Bowel sounds are positive. Extremities: No rash, lesions, or edema. No restriction of range of motion NEUROLOGICAL EXAMINATION: minimal response. Not oriented to time, place and person. PERRL. EOMI not elicited. CN: no acute focal findings. Muscle tone: within normal. Muscle strength: Moves all extremities to stimuli. DTR: 1-2 Plantar reflex: Neutral response bilaterally Gait: not examined in bed. Sensory exam: no acute abnormal findings. Not able to access cerebellar signs due to nit follow commands. F-T-N test not performed. Current Medications Current Medications Current Medications Hydromorphone HCl (Dilaudid) 0.5 mg 1X ONCE IV Last administered on 04/02/17 03:31; Start 04/02/17 at 03:15; Stop 04/02/17 at 03:40; Status DC Ondansetron HCl (Zofran) 4 mg 1X ONCE IV Last administered on 04/02/17 03:31 ; Start 04/02/17 at 03:15; Stop 04/02/17 at 03:40; Status DC Sodium Chloride 1,000 ml @ 1,000 mls/hr 1X ONCE IV Last administered on 03:31; Start 04/02/17 at 03:15; Stop 04/02/17 at 04:14; Status DC Ondansetron HCl (Zofran) 4 mg PRN Q8HRS PRN IV NAUSEA/VOMITING Last administered on 04/02/17 16:23; Start 04/02/17 at 04:15; Stop 04/03/17 at 04:14 ; Status DC Fentanyl Citrate (Fentanyl 2ml Vial) 50 mcg PRN Q1HR PRN IV PAIN Last administered on 04/02/17 15:18; Start 04/02/17 at 04:15; Stop 04/03/17 at 04:14 ; Status DC Acetaminophen (Tylenol) 650 mg PRN Q4HRS PRN PO FEVER; Start 04/02/17 at 04:15 ; Stop 04/03/17 at 04:14; Status DC Phytonadione (Vitamin K) 2 mg 1X ONCE SQ Last administered on 04/02/17 15:25 ; Start 04/02/17 at 12:00; Stop 04/02/17 at 12:01; Status DC Hydromorphone HCl (Dilaudid) 1 mg PRN Q2HRS PRN IVP PAIN Last administered on 09:54; Start 04/02/17 at 16:15 Ondansetron HCl (Zofran) 4 mg PRN Q6HRS PRN IV NAUSEA/VOMITING; Start 04/03/17 at 08:30 Pantoprazole Sodium (Protonix) 40 mg DAILYAC PO ; Start 04/03/17 at 09:00; Stop 04/04/17 at 11:21; Status DC Albuterol Sulfate (Ventolin Hfa) 1 puff Q2HR PRN IH soa; Start 04/03/17 at 08: 30; Status UNV Amoxicillin/ Clavulanate Potassium (Augmentin 875/ 125mg) 1 tab BIDWMEALS PO Last administered on 04/03/17 18:12; Start 04/03/17 at 09:00; Stop 04/04/17 at 07:31; Status DC Nitroglycerin (Nitrostat) 0.4 mg PRN Q5MIN PRN SL cp; Start 04/03/17 at 08:30 Atorvastatin Calcium (Lipitor) 80 mg QHS PO Last administered on 04/07/17 23: 57; Start 04/03/17 at 21:00 Albuterol Sulfate (Ventolin Neb Soln) 2.5 mg PRN Q2HRS PRN NEB SHORTNESS OF BREATH Last administered on 04/08/17 11:01; Start 04/03/17 at 08:45 Sodium Chloride 1,000 ml @ 150 mls/hr Q6H40M IV Last administered on 05:37; Start 04/03/17 at 09:00; Stop 04/08/17 at 11:39; Status DC Sodium Chloride 1,000 ml @ 1,000 mls/hr 1X ONCE IV Last administered on 09:00; Start 04/03/17 at 09:00; Stop 04/03/17 at 09:59; Status DC Norepinephrine Bitartrate 250 ml @ 0 mls/hr CONT PRN IV SEE I/O RECORD Last administered on 04/05/17 17:14; Start 04/03/17 at 11:00 Iohexol (Omnipaque 350 Mg/ml) 90 ml 1X ONCE IV Last administered on 04/03/17 12:27; Start 04/03/17 at 12:15; Stop 04/03/17 at 12:16; Status DC Iohexol (Omnipaque 300 Mg/ml) 50 ml STK-MED ONCE .ROUTE ; Start 04/03/17 at 13: 27; Stop 04/03/17 at 13:28; Status DC Iohexol (Omnipaque 300 Mg/ml) 100 ml STK-MED ONCE .ROUTE ; Start 04/03/17 at 13: 27; Stop 04/03/17 at 13:28; Status DC Lidocaine/Sodium Bicarbonate (Buffered Lidocaine 1%) 20 ml STK-MED ONCE IJ ; Start 04/03/17 at 13:27; Stop 04/03/17 at 13:28; Status DC Heparin Sodium/ Sodium Chloride 1,500 ml @ As Directed STK-MED ONCE .ROUTE ; Start 04/03/17 at 13:28; Stop 04/03/17 at 13:29; Status DC Gelatin (Gelfoam Size 12-7mm) 1 each STK-MED ONCE .ROUTE ; Start 04/03/17 at 13 :52; Stop 04/03/17 at 13:53; Status DC Fentanyl Citrate (Fentanyl 2ml Vial) 100 mcg STK-MED ONCE .ROUTE ; Start at 13:54; Stop 04/03/17 at 13:55; Status DC Midazolam HCl (Versed) 2 mg STK-MED ONCE .ROUTE ; Start 04/03/17 at 13:54; Stop 04/03/17 at 13:55; Status DC Rocuronium [place] (Zemuron) 50 mg STK-MED ONCE .ROUTE ; Start 04/03/17 at 14:30 ; Stop 04/03/17 at 14:31; Status DC Propofol 20 ml @ As Directed STK-MED ONCE IV ; Start 04/03/17 at 14:30; Stop at 14:31; Status DC Succinylcholine Chloride (Anectine) 200 mg STK-MED ONCE .ROUTE ; Start 04/03/17 at 14:32; Stop 04/03/17 at 14:33; Status DC Iohexol (Omnipaque 300 Mg/ml) 100 ml STK-MED ONCE .ROUTE ; Start 04/03/17 at 14: 53; Stop 04/03/17 at 14:54; Status DC Propofol 100 ml @ As Directed STK-MED ONCE IV ; Start 04/03/17 at 15:16; Stop 04/03/17 at 15:17; Status DC Heparin Sodium/ Sodium Chloride 1,000 unit 1X ONCE IART Last administered on t 16:46; Start 04/03/17 at 15:30; Stop 04/03/17 at 15:31; Status DC Lidocaine/Sodium Bicarbonate (Buffered Lidocaine 1%) 20 ml 1X ONCE IJ Last administered on 04/03/17 16:46; Start 04/03/17 at 15:30; Stop 04/03/17 at 15:31 ; Status DC Midazolam HCl (Versed) 1 mg 1X ONCE IV Last administered on 04/03/17 16:55; Start 04/03/17 at 14:00; Stop 04/03/17 at 15:23; Status DC Fentanyl Citrate (Fentanyl 2ml Vial) 50 mcg 1X ONCE IV Last administered on 16:56; Start 04/03/17 at 14:00; Stop 04/03/17 at 15:23; Status DC Iohexol (Omnipaque 300 Mg/ml) 100 ml 1X ONCE IART Last administered on 16:45; Start 04/03/17 at 15:30; Stop 04/03/17 at 15:31; Status DC Ondansetron HCl (Zofran) 4 mg 1X ONCE IV Last administered on 04/03/17 16:48 ; Start 04/03/17 at 14:08; Stop 04/03/17 at 15:23; Status DC Gelatin (Gelfoam Size 12-7mm) 1 each STK-MED ONCE .ROUTE ; Start 04/03/17 at 15 :41; Stop 04/03/17 at 15:42; Status DC Nitroglycerin (Nitroglycerin) 200 mcg 1X ONCE IART Last administered on 16:47; Start 04/03/17 at 16:15; Stop 04/03/17 at 16:16; Status DC Chlorhexidine Gluconate (Peridex) 15 ml BID MM Last administered on 04/08/17 08:18; Start 04/03/17 at 21:00 Propofol 100 ml @ 0 mls/hr CONT PRN IV SEE I/O RECORD; Start 04/03/17 at 17:15 Sodium Bicarbonate 100 meq 1X ONCE IV Last administered on 04/03/17 18:12; Start 04/03/17 at 18:00; Stop 04/03/17 at 18:01; Status DC Sodium Bicarbonate 100 meq 1X ONCE IV Last administered on 04/03/17 21:04; Start 04/03/17 at 20:15; Stop 04/03/17 at 20:16; Status DC Phenylephrine HCl 20 mg/Sodium Chloride 252 ml @ 0 mls/hr CONT PRN IV SEE I/O RECORD; Start 04/03/17 at 21:45 Sodium Chloride 1,000 ml @ 1,000 mls/hr 1X ONCE IV Last administered on 22:08; Start 04/03/17 at 21:45; Stop 04/03/17 at 22:44; Status DC Midazolam HCl 100 ml @ 0 mls/hr CONT PRN IV SEE I/O RECORD Last administered on 04/05/17 23:06; Start 04/03/17 at 21:45 Vancomycin HCl (Vanco Per Pharmacy) 1 each PRN DAILY PRN MC SEE COMMENTS Last administered on 04/03/17 22:01; Start 04/03/17 at 22:00; Stop 04/04/17 at 07:29 ; Status DC Piperacillin Sod/ Tazobactam Sod (Zosyn Per Pharmacy) 1 each PRN DAILY PRN MC SEE COMMENTS; Start 04/03/17 at 22:00; Stop 04/04/17 at 07:29; Status DC Vancomycin HCl 2 gm/Sodium Chloride 500 ml @ 250 mls/hr 1X ONCE IV Last administered on 04/03/17 22:09; Start 04/03/17 at 22:00; Stop 04/03/17 at 23:59 ; Status DC Piperacillin Sod/ Tazobactam Sod 4.5 gm/Sodium Chloride 100 ml @ 200 mls/hr Q6HRS IV Last administered on 04/04/17 05:37; Start 04/04/17 at 00:00; Stop at 07:29; Status DC Vancomycin HCl 1.25 gm/Sodium Chloride 250 ml @ 167 mls/hr Q12H IV ; Start at 10:00; Stop 04/04/17 at 10:00; Status DC Vancomycin HCl 1 each 1X ONCE MC ; Start 04/05/17 at 09:30; Stop 04/05/17 at 09 :31; Status Cancel Sodium Chloride 1,000 ml @ 1,000 mls/hr 1X ONCE IV Last administered on 23:27; Start 04/03/17 at 23:30; Stop 04/04/17 at 00:29; Status DC Sodium Chloride 500 ml @ 500 mls/hr 1X ONCE IV Last administered on 00:28; Start 04/04/17 at 00:30; Stop 04/04/17 at 01:30; Status DC Vancomycin HCl 1.5 gm/Sodium Chloride 500 ml @ 250 mls/hr Q24H IV ; Start 04/04 at 22:00; Stop 04/04/17 at 22:00; Status DC Piperacillin Sod/ Tazobactam Sod 2.25 gm/Sodium Chloride 50 ml @ 100 mls/hr Q6HRS IV Last administered on 04/07/17 05:37; Start 04/04/17 at 12:00; Stop at 08:12; Status DC Lidocaine/Sodium Bicarbonate (Buffered Lidocaine 1%) 3 ml 1X ONCE IJ Last administered on 04/04/17 09:15; Start 04/04/17 at 09:15; Stop 04/04/17 at 09:16 ; Status DC Heparin Sodium/ Sodium Chloride 60 unit 1X ONCE IV Last administered on 09:51; Start 04/04/17 at 09:15; Stop 04/04/17 at 09:16; Status DC Heparin Sodium (Porcine) (Heparin Sodium) 10,000 unit STK-MED ONCE .ROUTE ; Start 04/04/17 at 09:17; Stop 04/04/17 at 09:18; Status DC Micafungin Sodium 100 mg/Dextrose 100 ml @ 100 mls/hr Q24H IV Last administered on 04/06/17 09:35; Start 04/04/17 at 10:00; Stop 04/07/17 at 08:12 ; Status DC Pantoprazole Sodium (Protonix Vial) 40 mg DAILYAC IVP Last administered on 04/08 08:13; Start 04/04/17 at 11:30 Lidocaine/Sodium Bicarbonate (Buffered Lidocaine 1%) 3 ml 1X ONCE IJ Last administered on 04/04/17 11:59; Start 04/04/17 at 11:30; Stop 04/04/17 at 11:31 ; Status DC Heparin Sodium/ Sodium Chloride 60 unit 1X ONCE IV Last administered on 11:59; Start 04/04/17 at 11:30; Stop 04/04/17 at 11:31; Status DC Heparin Sodium (Porcine) (Heparin Sodium) 2,500 unit 1X ONCE INT CAT Last administered on 04/04/17 11:58; Start 04/04/17 at 11:30; Stop 04/04/17 at 11:31 ; Status DC Heparin Sodium (Porcine) (Heparin Sodium) 10,000 unit STK-MED ONCE .ROUTE ; Start 04/04/17 at 11:33; Stop 04/04/17 at 11:34; Status DC Darbepoetin Shukri (Aranesp) 60 mcg [id number] SQ Last administered on 04/04/17 21 :06; Start 04/04/17 at 21:00 Phytonadione 10 mg/Sodium Chloride 51 ml @ 102 mls/hr 1X ONCE IV Last administered on 04/04/17 13:16; Start 04/04/17 at 13:00; Stop 04/04/17 at 13:29 ; Status DC Sodium Chloride 1,000 ml @ 1,000 mls/hr Q1H PRN IV hypotension; Start 04/04/17 at 13:26; Stop 04/04/17 at 19:25; Status DC Diphenhydramine HCl (Benadryl) 25 mg 1X PRN PRN IV ITCHING; Start 04/04/17 at 13:30; Stop 04/05/17 at 13:29; Status DC Diphenhydramine HCl (Benadryl) 25 mg 1X PRN PRN IV ITCHING; Start 04/04/17 at 13:30; Stop 04/05/17 at 13:29; Status DC Sodium Chloride (Normal Saline Flush) 10 ml 1X PRN PRN IV AP catheter pack; Start 04/04/17 at 13:30; Stop 04/05/17 at 13:29; Status DC Sodium Chloride (Normal Saline Flush) 10 ml 1X PRN PRN IV DIET ASSISTANT catheter pack; Start 04/04/17 at 13:30; Stop 04/05/17 at 13:29; Status DC Info (PHARMACY MONITORING -- do not chart) 1 each PRN DAILY PRN MC SEE COMMENTS ; Start 04/04/17 at 13:30 Calcium Gluconate (Calcium Gluconate) 1,000 mg 1X ONCE IVP Last administered on 04/06/17 11:17; Start 04/06/17 at 11:30; Stop 04/06/17 at 11:31; Status DC Vecuronium [place] (Norcuron Bolus) 10 mg 1X ONCE IV Last administered on 04/06 18:24; Start 04/06/17 at 18:30; Stop 04/06/17 at 18:31; Status DC Propofol 100 ml @ 0 mls/hr 1X STAT IV Last administered on 04/06/17 18:18; Start 04/06/17 at 18:18; Stop 04/06/17 at 18:28; Status DC Ceftriaxone Sodium 1 gm/ Sodium Chloride 50 ml @ 100 mls/hr Q24H IV Last administered on 04/08/17 08:27; Start 04/07/17 at 09:00 Active Scripts Active Reported Augmentin 875-125 Tablet (Amoxicillin/Potassium Clav) 1 Each Tablet 1 Tab PO BID Proair Hfa (Albuterol Sulfate) 8.5 Gm Hfa.aer.ad 9 Gm IH Proscar (Finasteride) 5 Mg Tablet 1 Tab PO DAILY NITROGLYCERIN SubLingual (Nitroglycerin) 0.4 Mg Tab.subl 1 Tab SL UD Coumadin (Warfarin Sodium) 3 Mg Tablet 1 Tab PO DAILY Proair Hfa Inhaler (Albuterol Sulfate) 8.5 Gm Hfa.aer.ad 1-2 Inh IH Q4-6 HRS PRN Lipitor (Atorvastatin Calcium) 80 Mg Tablet 80 Mg PO DAILY Allergies Allergies: Coded Allergies: amiodarone (Verified Allergy, Intermediate, 01/04/17) fluticasone (Verified Allergy, Intermediate, MAKES SORES, 03/22/14) montelukast (Verified Allergy, Intermediate, EAR PAIN, 01/04/17) salmeterol (Verified Allergy, Intermediate, MAKES SORES, 03/22/14) Sulfa (Sulfonamide Antibiotics) (Verified Allergy, Mild, "MAKES SORES", 03/22/14) budesonide (Verified Allergy, Mild, RASH, 03/22/14) levofloxacin (Verified Adverse Reaction, Severe, RUPTURE OF ACHILLES TENDON, 04/08/17) Vitals VITALS Vital Signs Date Time Temp Pulse Resp B/P (MAP) Pulse Ox O2 Delivery O2 Flow Rate FiO2 04/08/17 16:00 Mechanical Ventilator 04/08/17 16:00 101.1 69 18 111/50 (70) 100 101.1 Labs Labs Laboratory Tests Test 04/07/17 05:50 04/07/17 07:45 04/08/17 06:00 04/08/17 08:10 White Blood Count 11.3 x10^3/uL (4.0-11.0) Red Blood Count 2.75 x10^6/uL (4.30-5.70) Hemoglobin 8.1 g/dL (13.0-17.5) Hematocrit 23.4 % (39.0-53.0) Mean Corpuscular Volume 85 fL (79-100) Mean Corpuscular Hemoglobin 29 pg (25-35) Mean Corpuscular Hemoglobin Concent 34 g/dL (31-37) Red Cell Distribution Width 17.0 % (11.5-14.5) Platelet Count 117 x10^3/uL (140-400) Neutrophils (%) (Auto) 56 % (31-73) Lymphocytes (%) (Auto) 35 % (24-48) Monocytes (%) (Auto) 7 % (0-9) Eosinophils (%) (Auto) 2 % (0-3) Basophils (%) (Auto) 0 % (0-3) Neutrophils # (Auto) 6.3 x10^3uL (1.8-7.7) Lymphocytes # (Auto) 4.0 x10^3/uL (1.0-4.8) Monocytes # (Auto) 0.7 x10^3/uL (0.0-1.1) Eosinophils # (Auto) 0.3 x10^3/uL (0.0-0.7) Basophils # (Auto) 0.0 x10^3/uL (0.0-0.2) Prothrombin Time 13.6 SEC (11.7-14.0) 13.7 SEC (11.7-14.0) Prothromb Time International Ratio 1.1 (0.8-1.1) 1.1 (0.8-1.1) Sodium Level 143 mmol/L (136-145) Potassium Level 3.8 mmol/L (3.5-5.1) Chloride Level 112 mmol/L (98-107) Carbon Dioxide Level 26 mmol/L (21-32) Anion Gap 5 (6-14) Blood Urea Nitrogen 29 mg/dL (8-26) Creatinine 1.1 mg/dL (0.7-1.3) Estimated GFR (Cockcroft-Gault) 65.1 Glucose Level 84 mg/dL (70-99) Calcium Level 7.5 mg/dL (8.5-10.1) O2 Saturation 97 % (92-99) 97 % (92-99) Arterial Blood pH 7.44 (7.35-7.45) 7.45 (7.35-7.45) Arterial Blood pCO2 at Patient Temp 34 mmHg (35-46) 34 mmHg (35-46) Arterial Blood pO2 at Patient Temp 110 mmHg (65-108) 99 mmHg (65-108) Arterial Blood HCO3 22 mmol/L (21-28) 23 mmol/L (21-28) Arterial Blood Base Excess -2 mmol/L (-3-3) -1 mmol/L (-3-3) FiO2 40 40 Albumin 1.6 g/dL (3.4-5.0) Laboratory Tests Test 04/08/17 06:00 04/08/17 08:10 Prothrombin Time 13.7 SEC (11.7-14.0) Prothromb Time International Ratio 1.1 (0.8-1.1) Albumin 1.6 g/dL (3.4-5.0) O2 Saturation 97 % (92-99) Arterial Blood pH 7.45 (7.35-7.45) Arterial Blood pCO2 at Patient Temp 34 mmHg (35-46) Arterial Blood pO2 at Patient Temp 99 mmHg (65-108) Arterial Blood HCO3 23 mmol/L (21-28) Arterial Blood Base Excess -1 mmol/L (-3-3) FiO2 40 KLARISSA MINOR MD Apr 08, 2017 17:00
[2017-04-08] MEDS ORDERED: PIPERACILLIN/TAZOBACTAM 2.25 GM in IV NORMAL SALINE 50ML 50 ML IV SCH (17:30)
[2017-04-08] MEDS: PIPERACILLIN/TAZOBACTAM 3.375 GM in IV NORMAL SALINE 50ML 50 ML IV SCH ×2 (17:33→23:43)
[2017-04-08] MEDS: VANCOMYCIN PER PHARMACY MC PRN (17:47)
[2017-04-08] MEDS ORDERED: VANCOMYCIN 2 GM in IV NORMAL SALINE 500ML BAG 500 ML IV ONE (18:00)
[2017-04-08] MEDS: ACETAMINOPHEN 650 MG/20.3 ML SOLUTION. PEG PRN (18:33)
[2017-04-08] MEDS: ATORVASTATIN CALCIUM 40 MG TABLET. PO SCH (20:46)
[2017-04-09] VITALS (23 sets, daily range): BP systolic 90–145; BP diastolic 46–73
[2017-04-09] MEDS: HYDROmorphone 2 MG/ML VIAL IVP PRN (01:49)
[2017-04-09] MEDS: PIPERACILLIN/TAZOBACTAM 3.375 GM in IV NORMAL SALINE 50ML 50 ML IV SCH (06:01)
[2017-04-09] MEDS: VANCOMYCIN 1.5 GM in IV NORMAL SALINE 500ML BAG 500 ML IV SCH ×2 (06:02→17:52)
[2017-04-09 06:37] LABS: BASO % 0 % (0-3); EOS % 4 % (0-3); HEMATOCRIT 24.3 % (39.0-53.0); HEMOGLOBIN 8.1 g/dL (13.0-17.5); LYMPH # 3.4 x10^3/uL (1.0-4.8); LYMPH % 38 % (24-48); MEAN CORPUSCULAR HEMOGLOBIN 29 pg (25-35); MEAN CORPUSCULAR HGB CONC 33 g/dL (31-37); MEAN CORPUSCULAR VOLUME 88 fL (79-100); MONO % 10 % (0-9); NEUT % 48 % (31-73); PLATELET COUNT 134 x10^3/uL (140-400); RED BLOOD COUNT 2.76 x10^6/uL (4.30-5.70); RED CELL DISTRIBUTION WIDTH 17.7 % (11.5-14.5); WHITE BLOOD COUNT 8.9 x10^3/uL (4.0-11.0)
[2017-04-09 07:02] LABS: CALCIUM 8.3 mg/dL (8.5-10.1); GFR 72.6; POTASSIUM 3.8 mmol/L (3.5-5.1)
--- NOTE | 2017-04-09 07:30 | PDOC ---
Infectious Disease Note Subjective Subjective on vent, ROS ROS unable to do Vital Sign Vital Signs Vital Signs Date Time Temp Pulse Resp B/P (MAP) Pulse Ox O2 Delivery O2 Flow Rate FiO2 04/09/17 05:32 100 Ventilator 04/09/17 04:00 99.3 69 17 90/52 (65) 99.3 Physical Exam PHYSICAL EXAM GENERAL: on vent, HEENT: PERRL, OC/OP NECK: Supple, no JVD, no LN LUNGS: Clear HEART: S1S2, no gallop, no murmur ABD: Soft, NT, no organomegaly, no rebound EXT: No edema, no cyanosis [employer]: on vent SKIN: No rash IV: ok Labs Lab Laboratory Tests Test 04/08/17 08:10 04/08/17 17:30 04/09/17 06:05 O2 Saturation 97 % (92-99) Arterial Blood pH 7.45 (7.35-7.45) Arterial Blood pCO2 at Patient Temp 34 mmHg (35-46) Arterial Blood pO2 at Patient Temp 99 mmHg (65-108) Arterial Blood HCO3 23 mmol/L (21-28) Arterial Blood Base Excess -1 mmol/L (-3-3) FiO2 40 Thyroid Stimulating Hormone (TSH) 6.113 uIU/mL (0.358-3.74) White Blood Count 8.9 x10^3/uL (4.0-11.0) Red Blood Count 2.76 x10^6/uL (4.30-5.70) Hemoglobin 8.1 g/dL (13.0-17.5) Hematocrit 24.3 % (39.0-53.0) Mean Corpuscular Volume 88 fL (79-100) Mean Corpuscular Hemoglobin 29 pg (25-35) Mean Corpuscular Hemoglobin Concent 33 g/dL (31-37) Red Cell Distribution Width 17.7 % (11.5-14.5) Platelet Count 134 x10^3/uL (140-400) Neutrophils (%) (Auto) 48 % (31-73) Lymphocytes (%) (Auto) 38 % (24-48) Monocytes (%) (Auto) 10 % (0-9) Eosinophils (%) (Auto) 4 % (0-3) Basophils (%) (Auto) 0 % (0-3) Neutrophils # (Auto) 4.3 x10^3uL (1.8-7.7) Lymphocytes # (Auto) 3.4 x10^3/uL (1.0-4.8) Monocytes # (Auto) 0.9 x10^3/uL (0.0-1.1) Eosinophils # (Auto) 0.4 x10^3/uL (0.0-0.7) Basophils # (Auto) 0.0 x10^3/uL (0.0-0.2) Sodium Level 145 mmol/L (136-145) Potassium Level 3.8 mmol/L (3.5-5.1) Chloride Level 113 mmol/L (98-107) Carbon Dioxide Level 26 mmol/L (21-32) Anion Gap 6 (6-14) Blood Urea Nitrogen 31 mg/dL (8-26) Creatinine 1.0 mg/dL (0.7-1.3) Estimated GFR (Cockcroft-Gault) 72.6 Glucose Level 125 mg/dL (70-99) Calcium Level 8.3 mg/dL (8.5-10.1) Micro SPUTUM CULTURE PRL Final Final report SPUTUM CULT RES 1 Final Klebsiella pneumoniae Moderate growth ANTIMICROBIAL SUSCEPTIBILITY Final Comment S = Susceptible; I = Intermediate; R = Resistant P = Positive; N = Negative MICS are expressed in micrograms per mL Antibiotic RSLT#1 RSLT#2 RSLT#3 RSLT#4 Amoxicillin/Clavulanic Acid S Ampicillin R Cefepime S Ceftriaxone S Cefuroxime S Ciprofloxacin S Ertapenem S Gentamicin S Imipenem S Levofloxacin S Piperacillin R Tetracycline S Tobramycin S Trimethoprim/Sulfa S Performed at: [address] [id number] Objective Assessment Sepsis vs SIRS - on Levophed Fever Leukocytosis, trending down Retroperitoneal bleed s/p 04/03 Selective/superselective right iliac arteriogram.Trans-microcatheter Gelfoam slurry and microcoil embolization of right iliolumbar artery Aspiration -vomiting 04/03. Kleb MARTHA on HD Resp failure Levoflox allergy - tendon rupture/Bactrim allergy - sores Afib Plan Plan of Care bc done, started on venc and cefepime supportive care WILFRID AGUILAR MD Apr 09, 2017 07:30
[2017-04-09] MEDS: ALBUTEROL SULFATE 2.5 MG/3 ML NEBU. NEB PRN ×3 (07:34→19:52)
[2017-04-09] MEDS: VANCOMYCIN PER PHARMACY MC PRN (08:18)
[2017-04-09 08:25] LABS: HCO3 ABG 23 mmol/L (21-28); PCO2 ABG 38 mmHg (35-46); PH ABG 7.41 (7.35-7.45); PO2 ABG 90 mmHg (65-108); SAT O2 ABG 96 % (92-99)
[2017-04-09] MEDS: CHLORHEXIDINE 0.12% 15 ML MOUTHWASH. MM SCH ×2 (08:41→20:52)
[2017-04-09] MEDS: PANTOPRAZOLE IV PUSH 40 MG VIAL. IVP SCH (08:41)
[2017-04-09 08:43] LABS: FIO2 ABG 40
[2017-04-09] MEDS: CEFEPIME HCL 1 GM in IV NORMAL SALINE 50ML 50 ML IV SCH ×3 (09:10→21:33)
--- NOTE | 2017-04-09 09:13 | PDOC ---
PROGRESS NOTES Chief Complaint Chief Complaint cc: retroperitoneal bleed A/P 1. Retroperitoneal bleed: S/P microcoil embolization of right iliolumbar artery : hemoglobin stable. IR following. 2. Acute anemia of blood loss from above: s/p PRBC AND S/P FFP, monitor hemoglobin, stable at 8 3. Coumadin coagulopathy: stop Coumadin, on aspirin for afib 4. Septic shock possible aspiration: Klebsiella pneumoniae ID following. 5, Acute respiratory failure on mechanical ventilation,: Daily CXR, pulmonology following. off sedation, possible extubation in am 6. Shock: off Levophed decrease IV hydration, 7. Chronic lumbago, hypothyroidism, 8. Renal failure: Temp HD catheter and HD, Cr improving. renal following. 9. Afib, pacemaker , stopped Coumadin, pacer in situ. 10. condition:critical, prognosis poor/ guarded. 11. Encephalopathy: off sedation, not responding to questions, consult neurology , possible imaging. 12. NO lovenox due to bleeding risk,RUBI/PAS stockings, d/w family, answered all questions, Vitals Vitals Vital Signs Date Time Temp Pulse Resp B/P (MAP) Pulse Ox O2 Delivery O2 Flow Rate FiO2 04/09/17 08:19 Mechanical Ventilator 04/09/17 07:51 98.9 98.9 04/09/17 07:34 100 04/09/17 07:00 69 18 93/49 (64) Physical Exam General: Other (off sedation, following commands. ) Heart: Regular rate, Normal S1, Normal S2 Lungs: Clear Abdomen: Normal bowel sounds, Other (less distention) Extremities: No clubbing, No cyanosis, Other (edema) Skin: Other (no bruising) Labs LABS Laboratory Tests Test 04/08/17 17:30 04/09/17 06:05 04/09/17 08:20 Thyroid Stimulating Hormone (TSH) 6.113 uIU/mL (0.358-3.74) White Blood Count 8.9 x10^3/uL (4.0-11.0) Red Blood Count 2.76 x10^6/uL (4.30-5.70) Hemoglobin 8.1 g/dL (13.0-17.5) Hematocrit 24.3 % (39.0-53.0) Mean Corpuscular Volume 88 fL (79-100) Mean Corpuscular Hemoglobin 29 pg (25-35) Mean Corpuscular Hemoglobin Concent 33 g/dL (31-37) Red Cell Distribution Width 17.7 % (11.5-14.5) Platelet Count 134 x10^3/uL (140-400) Neutrophils (%) (Auto) 48 % (31-73) Lymphocytes (%) (Auto) 38 % (24-48) Monocytes (%) (Auto) 10 % (0-9) Eosinophils (%) (Auto) 4 % (0-3) Basophils (%) (Auto) 0 % (0-3) Neutrophils # (Auto) 4.3 x10^3uL (1.8-7.7) Lymphocytes # (Auto) 3.4 x10^3/uL (1.0-4.8) Monocytes # (Auto) 0.9 x10^3/uL (0.0-1.1) Eosinophils # (Auto) 0.4 x10^3/uL (0.0-0.7) Basophils # (Auto) 0.0 x10^3/uL (0.0-0.2) Sodium Level 145 mmol/L (136-145) Potassium Level 3.8 mmol/L (3.5-5.1) Chloride Level 113 mmol/L (98-107) Carbon Dioxide Level 26 mmol/L (21-32) Anion Gap 6 (6-14) Blood Urea Nitrogen 31 mg/dL (8-26) Creatinine 1.0 mg/dL (0.7-1.3) Estimated GFR (Cockcroft-Gault) 72.6 Glucose Level 125 mg/dL (70-99) Calcium Level 8.3 mg/dL (8.5-10.1) O2 Saturation 96 % (92-99) Arterial Blood pH 7.41 (7.35-7.45) Arterial Blood pCO2 at Patient Temp 38 mmHg (35-46) Arterial Blood pO2 at Patient Temp 90 mmHg (65-108) Arterial Blood HCO3 23 mmol/L (21-28) Arterial Blood Base Excess -1 mmol/L (-3-3) FiO2 40 Assessment and Plan Assessmemt and Plan Problems Medical Problems: (1) Anticoagulated Status: Acute (2) Retroperitoneal bleed Status: Acute Problems: Comment Review of Relevant I have reviewed the following items sarbjit (where applicable) has been applied. Labs Laboratory Tests Test 04/08/17 06:00 04/08/17 08:10 04/08/17 17:30 04/09/17 06:05 Prothrombin Time 13.7 SEC (11.7-14.0) Prothromb Time International Ratio 1.1 (0.8-1.1) Albumin 1.6 g/dL (3.4-5.0) O2 Saturation 97 % (92-99) Arterial Blood pH 7.45 (7.35-7.45) Arterial Blood pCO2 at Patient Temp 34 mmHg (35-46) Arterial Blood pO2 at Patient Temp 99 mmHg (65-108) Arterial Blood HCO3 23 mmol/L (21-28) Arterial Blood Base Excess -1 mmol/L (-3-3) FiO2 40 Thyroid Stimulating Hormone (TSH) 6.113 uIU/mL (0.358-3.74) White Blood Count 8.9 x10^3/uL (4.0-11.0) Red Blood Count 2.76 x10^6/uL (4.30-5.70) Hemoglobin 8.1 g/dL (13.0-17.5) Hematocrit 24.3 % (39.0-53.0) Mean Corpuscular Volume 88 fL (79-100) Mean Corpuscular Hemoglobin 29 pg (25-35) Mean Corpuscular Hemoglobin Concent 33 g/dL (31-37) Red Cell Distribution Width 17.7 % (11.5-14.5) Platelet Count 134 x10^3/uL (140-400) Neutrophils (%) (Auto) 48 % (31-73) Lymphocytes (%) (Auto) 38 % (24-48) Monocytes (%) (Auto) 10 % (0-9) Eosinophils (%) (Auto) 4 % (0-3) Basophils (%) (Auto) 0 % (0-3) Neutrophils # (Auto) 4.3 x10^3uL (1.8-7.7) Lymphocytes # (Auto) 3.4 x10^3/uL (1.0-4.8) Monocytes # (Auto) 0.9 x10^3/uL (0.0-1.1) Eosinophils # (Auto) 0.4 x10^3/uL (0.0-0.7) Basophils # (Auto) 0.0 x10^3/uL (0.0-0.2) Sodium Level 145 mmol/L (136-145) Potassium Level 3.8 mmol/L (3.5-5.1) Chloride Level 113 mmol/L (98-107) Carbon Dioxide Level 26 mmol/L (21-32) Anion Gap 6 (6-14) Blood Urea Nitrogen 31 mg/dL (8-26) Creatinine 1.0 mg/dL (0.7-1.3) Estimated GFR (Cockcroft-Gault) 72.6 Glucose Level 125 mg/dL (70-99) Calcium Level 8.3 mg/dL (8.5-10.1) Test 04/09/17 08:20 O2 Saturation 96 % (92-99) Arterial Blood pH 7.41 (7.35-7.45) Arterial Blood pCO2 at Patient Temp 38 mmHg (35-46) Arterial Blood pO2 at Patient Temp 90 mmHg (65-108) Arterial Blood HCO3 23 mmol/L (21-28) Arterial Blood Base Excess -1 mmol/L (-3-3) FiO2 40 Laboratory Tests Test 04/08/17 17:30 04/09/17 06:05 04/09/17 08:20 Thyroid Stimulating Hormone (TSH) 6.113 uIU/mL (0.358-3.74) White Blood Count 8.9 x10^3/uL (4.0-11.0) Red Blood Count 2.76 x10^6/uL (4.30-5.70) Hemoglobin 8.1 g/dL (13.0-17.5) Hematocrit 24.3 % (39.0-53.0) Mean Corpuscular Volume 88 fL (79-100) Mean Corpuscular Hemoglobin 29 pg (25-35) Mean Corpuscular Hemoglobin Concent 33 g/dL (31-37) Red Cell Distribution Width 17.7 % (11.5-14.5) Platelet Count 134 x10^3/uL (140-400) Neutrophils (%) (Auto) 48 % (31-73) Lymphocytes (%) (Auto) 38 % (24-48) Monocytes (%) (Auto) 10 % (0-9) Eosinophils (%) (Auto) 4 % (0-3) Basophils (%) (Auto) 0 % (0-3) Neutrophils # (Auto) 4.3 x10^3uL (1.8-7.7) Lymphocytes # (Auto) 3.4 x10^3/uL (1.0-4.8) Monocytes # (Auto) 0.9 x10^3/uL (0.0-1.1) Eosinophils # (Auto) 0.4 x10^3/uL (0.0-0.7) Basophils # (Auto) 0.0 x10^3/uL (0.0-0.2) Sodium Level 145 mmol/L (136-145) Potassium Level 3.8 mmol/L (3.5-5.1) Chloride Level 113 mmol/L (98-107) Carbon Dioxide Level 26 mmol/L (21-32) Anion Gap 6 (6-14) Blood Urea Nitrogen 31 mg/dL (8-26) Creatinine 1.0 mg/dL (0.7-1.3) Estimated GFR (Cockcroft-Gault) 72.6 Glucose Level 125 mg/dL (70-99) Calcium Level 8.3 mg/dL (8.5-10.1) O2 Saturation 96 % (92-99) Arterial Blood pH 7.41 (7.35-7.45) Arterial Blood pCO2 at Patient Temp 38 mmHg (35-46) Arterial Blood pO2 at Patient Temp 90 mmHg (65-108) Arterial Blood HCO3 23 mmol/L (21-28) Arterial Blood Base Excess -1 mmol/L (-3-3) FiO2 40 Microbiology 04/03/17 Blood Culture - Final, Complete NO GROWTH AFTER 5 DAYS 04/04/17 Gram Stain - Final, Complete Medications Current Medications Hydromorphone HCl (Dilaudid) 0.5 mg 1X ONCE IV Last administered on 04/02/17 03:31; Start 04/02/17 at 03:15; Stop 04/02/17 at 03:40; Status DC Ondansetron HCl (Zofran) 4 mg 1X ONCE IV Last administered on 04/02/17 03:31 ; Start 04/02/17 at 03:15; Stop 04/02/17 at 03:40; Status DC Sodium Chloride 1,000 ml @ 1,000 mls/hr 1X ONCE IV Last administered on 03:31; Start 04/02/17 at 03:15; Stop 04/02/17 at 04:14; Status DC Ondansetron HCl (Zofran) 4 mg PRN Q8HRS PRN IV NAUSEA/VOMITING Last administered on 04/02/17 16:23; Start 04/02/17 at 04:15; Stop 04/03/17 at 04:14 ; Status DC Fentanyl Citrate (Fentanyl 2ml Vial) 50 mcg PRN Q1HR PRN IV PAIN Last administered on 04/02/17 15:18; Start 04/02/17 at 04:15; Stop 04/03/17 at 04:14 ; Status DC Acetaminophen (Tylenol) 650 mg PRN Q4HRS PRN PO FEVER; Start 04/02/17 at 04:15 ; Stop 04/03/17 at 04:14; Status DC Phytonadione (Vitamin K) 2 mg 1X ONCE SQ Last administered on 04/02/17 15:25 ; Start 04/02/17 at 12:00; Stop 04/02/17 at 12:01; Status DC Hydromorphone HCl (Dilaudid) 1 mg PRN Q2HRS PRN IVP PAIN Last administered on 01:49; Start 04/02/17 at 16:15 Ondansetron HCl (Zofran) 4 mg PRN Q6HRS PRN IV NAUSEA/VOMITING; Start 04/03/17 at 08:30 Pantoprazole Sodium (Protonix) 40 mg DAILYAC PO ; Start 04/03/17 at 09:00; Stop 04/04/17 at 11:21; Status DC Albuterol Sulfate (Ventolin Hfa) 1 puff Q2HR PRN IH soa; Start 04/03/17 at 08: 30; Status UNV Amoxicillin/ Clavulanate Potassium (Augmentin 875/ 125mg) 1 tab BIDWMEALS PO Last administered on 04/03/17 18:12; Start 04/03/17 at 09:00; Stop 04/04/17 at 07:31; Status DC Nitroglycerin (Nitrostat) 0.4 mg PRN Q5MIN PRN SL cp; Start 04/03/17 at 08:30 Atorvastatin Calcium (Lipitor) 80 mg QHS PO Last administered on 6/20/17at 20: 46; Start 04/03/17 at 21:00 Albuterol Sulfate (Ventolin Neb Soln) 2.5 mg PRN Q2HRS PRN NEB SHORTNESS OF BREATH Last administered on 04/09/17 07:34; Start 04/03/17 at 08:45 Sodium Chloride 1,000 ml @ 150 mls/hr Q6H40M IV Last administered on 05:37; Start 04/03/17 at 09:00; Stop 04/08/17 at 11:39; Status DC Sodium Chloride 1,000 ml @ 1,000 mls/hr 1X ONCE IV Last administered on 09:00; Start 04/03/17 at 09:00; Stop 04/03/17 at 09:59; Status DC Norepinephrine Bitartrate 250 ml @ 0 mls/hr CONT PRN IV SEE I/O RECORD Last administered on 04/05/17 17:14; Start 04/03/17 at 11:00 Iohexol (Omnipaque 350 Mg/ml) 90 ml 1X ONCE IV Last administered on 04/03/17 12:27; Start 04/03/17 at 12:15; Stop 04/03/17 at 12:16; Status DC Iohexol (Omnipaque 300 Mg/ml) 50 ml STK-MED ONCE .ROUTE ; Start 04/03/17 at 13: 27; Stop 04/03/17 at 13:28; Status DC Iohexol (Omnipaque 300 Mg/ml) 100 ml STK-MED ONCE .ROUTE ; Start 04/03/17 at 13: 27; Stop 04/03/17 at 13:28; Status DC Lidocaine/Sodium Bicarbonate (Buffered Lidocaine 1%) 20 ml STK-MED ONCE IJ ; Start 04/03/17 at 13:27; Stop 04/03/17 at 13:28; Status DC Heparin Sodium/ Sodium Chloride 1,500 ml @ As Directed STK-MED ONCE .ROUTE ; Start 04/03/17 at 13:28; Stop 04/03/17 at 13:29; Status DC Gelatin (Gelfoam Size 12-7mm) 1 each STK-MED ONCE .ROUTE ; Start 04/03/17 at 13 :52; Stop 04/03/17 at 13:53; Status DC Fentanyl Citrate (Fentanyl 2ml Vial) 100 mcg STK-MED ONCE .ROUTE ; Start at 13:54; Stop 04/03/17 at 13:55; Status DC Midazolam HCl (Versed) 2 mg STK-MED ONCE .ROUTE ; Start 04/03/17 at 13:54; Stop 04/03/17 at 13:55; Status DC Rocuronium [place] (Zemuron) 50 mg STK-MED ONCE .ROUTE ; Start 04/03/17 at 14:30 ; Stop 04/03/17 at 14:31; Status DC Propofol 20 ml @ As Directed STK-MED ONCE IV ; Start 04/03/17 at 14:30; Stop at 14:31; Status DC Succinylcholine Chloride (Anectine) 200 mg STK-MED ONCE .ROUTE ; Start 04/03/17 at 14:32; Stop 04/03/17 at 14:33; Status DC Iohexol (Omnipaque 300 Mg/ml) 100 ml STK-MED ONCE .ROUTE ; Start 04/03/17 at 14: 53; Stop 04/03/17 at 14:54; Status DC Propofol 100 ml @ As Directed STK-MED ONCE IV ; Start 04/03/17 at 15:16; Stop 04/03/17 at 15:17; Status DC Heparin Sodium/ Sodium Chloride 1,000 unit 1X ONCE IART Last administered on 16:46; Start 04/03/17 at 15:30; Stop 04/03/17 at 15:31; Status DC Lidocaine/Sodium Bicarbonate (Buffered Lidocaine 1%) 20 ml 1X ONCE IJ Last administered on 04/03/17 16:46; Start 04/03/17 at 15:30; Stop 04/03/17 at 15:31 ; Status DC Midazolam HCl (Versed) 1 mg 1X ONCE IV Last administered on 04/03/17 16:55; Start 04/03/17 at 14:00; Stop 04/03/17 at 15:23; Status DC Fentanyl Citrate (Fentanyl 2ml Vial) 50 mcg 1X ONCE IV Last administered on 16:56; Start 04/03/17 at 14:00; Stop 04/03/17 at 15:23; Status DC Iohexol (Omnipaque 300 Mg/ml) 100 ml 1X ONCE IART Last administered on 16:45; Start 04/03/17 at 15:30; Stop 04/03/17 at 15:31; Status DC Ondansetron HCl (Zofran) 4 mg 1X ONCE IV Last administered on 04/03/17 16:48 ; Start 04/03/17 at 14:08; Stop 04/03/17 at 15:23; Status DC Gelatin (Gelfoam Size 12-7mm) 1 each STK-MED ONCE .ROUTE ; Start 04/03/17 at 15 :41; Stop 04/03/17 at 15:42; Status DC Nitroglycerin (Nitroglycerin) 200 mcg 1X ONCE IART Last administered on 16:47; Start 04/03/17 at 16:15; Stop 04/03/17 at 16:16; Status DC Chlorhexidine Gluconate (Peridex) 15 ml BID MM Last administered on 04/09/17 08:41; Start 04/03/17 at 21:00 Propofol 100 ml @ 0 mls/hr CONT PRN IV SEE I/O RECORD; Start 04/03/17 at 17:15 Sodium Bicarbonate 100 meq 1X ONCE IV Last administered on 04/03/17 18:12; Start 04/03/17 at 18:00; Stop 04/03/17 at 18:01; Status DC Sodium Bicarbonate 100 meq 1X ONCE IV Last administered on 04/03/17 21:04; Start 04/03/17 at 20:15; Stop 04/03/17 at 20:16; Status DC Phenylephrine HCl 20 mg/Sodium Chloride 252 ml @ 0 mls/hr CONT PRN IV SEE I/O RECORD; Start 04/03/17 at 21:45 Sodium Chloride 1,000 ml @ 1,000 mls/hr 1X ONCE IV Last administered on 22:08; Start 04/03/17 at 21:45; Stop 04/03/17 at 22:44; Status DC Midazolam HCl 100 ml @ 0 mls/hr CONT PRN IV SEE I/O RECORD Last administered on 04/05/17 23:06; Start 04/03/17 at 21:45 Vancomycin HCl (Vanco Per Pharmacy) 1 each PRN DAILY PRN MC SEE COMMENTS Last administered on 04/03/17 22:01; Start 04/03/17 at 22:00; Stop 04/04/17 at 07:29 ; Status DC Piperacillin Sod/ Tazobactam Sod (Zosyn Per Pharmacy) 1 each PRN DAILY PRN MC SEE COMMENTS; Start 04/03/17 at 22:00; Stop 04/04/17 at 07:29; Status DC Vancomycin HCl 2 gm/Sodium Chloride 500 ml @ 250 mls/hr 1X ONCE IV Last administered on 04/03/17 22:09; Start 04/03/17 at 22:00; Stop 04/03/17 at 23:59 ; Status DC Piperacillin Sod/ Tazobactam Sod 4.5 gm/Sodium Chloride 100 ml @ 200 mls/hr Q6HRS IV Last administered on 04/04/17 05:37; Start 04/04/17 at 00:00; Stop at 07:29; Status DC Vancomycin HCl 1.25 gm/Sodium Chloride 250 ml @ 167 mls/hr Q12H IV ; Start at 10:00; Stop 04/04/17 at 10:00; Status DC Vancomycin HCl 1 each 1X ONCE MC ; Start 04/05/17 at 09:30; Stop 04/05/17 at 09 :31; Status Cancel Sodium Chloride 1,000 ml @ 1,000 mls/hr 1X ONCE IV Last administered on 23:27; Start 04/03/17 at 23:30; Stop 04/04/17 at 00:29; Status DC Sodium Chloride 500 ml @ 500 mls/hr 1X ONCE IV Last administered on 00:28; Start 04/04/17 at 00:30; Stop 04/04/17 at 01:30; Status DC Vancomycin HCl 1.5 gm/Sodium Chloride 500 ml @ 250 mls/hr Q24H IV ; Start 04/04 at 22:00; Stop 04/04/17 at 22:00; Status DC Piperacillin Sod/ Tazobactam Sod 2.25 gm/Sodium Chloride 50 ml @ 100 mls/hr Q6HRS IV Last administered on 04/07/17 05:37; Start 04/04/17 at 12:00; Stop at 08:12; Status DC Lidocaine/Sodium Bicarbonate (Buffered Lidocaine 1%) 3 ml 1X ONCE IJ Last administered on 04/04/17 09:15; Start 04/04/17 at 09:15; Stop 04/04/17 at 09:16 ; Status DC Heparin Sodium/ Sodium Chloride 60 unit 1X ONCE IV Last administered on 09:51; Start 04/04/17 at 09:15; Stop 04/04/17 at 09:16; Status DC Heparin Sodium (Porcine) (Heparin Sodium) 10,000 unit STK-MED ONCE .ROUTE ; Start 04/04/17 at 09:17; Stop 04/04/17 at 09:18; Status DC Micafungin Sodium 100 mg/Dextrose 100 ml @ 100 mls/hr Q24H IV Last administered on 04/06/17 09:35; Start 04/04/17 at 10:00; Stop 04/07/17 at 08:12 ; Status DC Pantoprazole Sodium (Protonix Vial) 40 mg DAILYAC IVP Last administered on 04/09 08:41; Start 04/04/17 at 11:30 Lidocaine/Sodium Bicarbonate (Buffered Lidocaine 1%) 3 ml 1X ONCE IJ Last administered on 04/04/17 11:59; Start 04/04/17 at 11:30; Stop 04/04/17 at 11:31 ; Status DC Heparin Sodium/ Sodium Chloride 60 unit 1X ONCE IV Last administered on 11:59; Start 04/04/17 at 11:30; Stop 04/04/17 at 11:31; Status DC Heparin Sodium (Porcine) (Heparin Sodium) 2,500 unit 1X ONCE INT CAT Last administered on 04/04/17 11:58; Start 04/04/17 at 11:30; Stop 04/04/17 at 11:31 ; Status DC Heparin Sodium (Porcine) (Heparin Sodium) 10,000 unit STK-MED ONCE .ROUTE ; Start 04/04/17 at 11:33; Stop 04/04/17 at 11:34; Status DC Darbepoetin Shukri (Aranesp) 60 mcg [id number] SQ Last administered on 04/04/17 21 :06; Start 04/04/17 at 21:00 Phytonadione 10 mg/Sodium Chloride 51 ml @ 102 mls/hr 1X ONCE IV Last administered on 04/04/17 13:16; Start 04/04/17 at 13:00; Stop 04/04/17 at 13:29 ; Status DC Sodium Chloride 1,000 ml @ 1,000 mls/hr Q1H PRN IV hypotension; Start 04/04/17 at 13:26; Stop 04/04/17 at 19:25; Status DC Diphenhydramine HCl (Benadryl) 25 mg 1X PRN PRN IV ITCHING; Start 04/04/17 at 13:30; Stop 04/05/17 at 13:29; Status DC Diphenhydramine HCl (Benadryl) 25 mg 1X PRN PRN IV ITCHING; Start 04/04/17 at 13:30; Stop 04/05/17 at 13:29; Status DC Sodium Chloride (Normal Saline Flush) 10 ml 1X PRN PRN IV AP catheter pack; Start 04/04/17 at 13:30; Stop 04/05/17 at 13:29; Status DC Sodium Chloride (Normal Saline Flush) 10 ml 1X PRN PRN IV CASE PLANNER catheter pack; Start 04/04/17 at 13:30; Stop 04/05/17 at 13:29; Status DC Info (PHARMACY MONITORING -- do not chart) 1 each PRN DAILY PRN MC SEE COMMENTS ; Start 04/04/17 at 13:30; Status Cancel Calcium Gluconate (Calcium Gluconate) 1,000 mg 1X ONCE IVP Last administered on 04/06/17 11:17; Start 04/06/17 at 11:30; Stop 04/06/17 at 11:31; Status DC Vecuronium [place] (Norcuron Bolus) 10 mg 1X ONCE IV Last administered on 04/06 18:24; Start 04/06/17 at 18:30; Stop 04/06/17 at 18:31; Status DC Propofol 100 ml @ 0 mls/hr 1X STAT IV Last administered on 04/06/17 18:18; Start 04/06/17 at 18:18; Stop 04/06/17 at 18:28; Status DC Ceftriaxone Sodium 1 gm/ Sodium Chloride 50 ml @ 100 mls/hr Q24H IV Last administered on 04/08/17 08:27; Start 04/07/17 at 09:00; Stop 04/08/17 at 17:07 ; Status DC Acetaminophen (Tylenol) 650 mg PRN Q4HRS PRN PEG MILD PAIN / TEMP Last administered on 04/08/17 18:33; Start 04/08/17 at 17:15 Piperacillin Sod/ Tazobactam Sod 2.25 gm/Sodium Chloride 50 ml @ 100 mls/hr Q8HRS IV ; Start 04/08/17 at 17:30; Stop 04/08/17 at 17:30; Status DC Vancomycin HCl (Vanco Per Pharmacy) 1 each PRN DAILY PRN MC SEE COMMENTS Last administered on 04/09/17 08:18; Start 04/08/17 at 17:15 Piperacillin Sod/ Tazobactam Sod 3.375 gm/Sodium Chloride 50 ml @ 100 mls/hr Q6HRS IV ; Start 04/08/17 at 17:00; Stop 04/08/17 at 17:14; Status DC Vancomycin HCl 2 gm/Sodium Chloride 500 ml @ 250 mls/hr 1X ONCE IV Last administered on 04/08/17 17:34; Start 04/08/17 at 18:00; Stop 04/08/17 at 19:59 ; Status DC Piperacillin Sod/ Tazobactam Sod 3.375 gm/Sodium Chloride 50 ml @ 100 mls/hr Q6HRS IV Last administered on 04/09/17 06:01; Start 04/08/17 at 18:00; Stop at 07:30; Status DC Vancomycin HCl 1.5 gm/Sodium Chloride 500 ml @ 250 mls/hr Q12H IV Last administered on 04/09/17 06:02; Start 04/09/17 at 06:00 Vancomycin HCl 1 each 1X ONCE MC ; Start 04/10/17 at 05:30; Stop 04/10/17 at 05 :31 Cefepime HCl 1 gm/ Sodium Chloride 50 ml @ 100 mls/hr Q8HRS IV ; Start at 08:00 Active Scripts Active Reported Augmentin 875-125 Tablet (Amoxicillin/Potassium Clav) 1 Each Tablet 1 Tab PO BID Proair Hfa (Albuterol Sulfate) 8.5 Gm Hfa.aer.ad 9 Gm IH Proscar (Finasteride) 5 Mg Tablet 1 Tab PO DAILY NITROGLYCERIN SubLingual (Nitroglycerin) 0.4 Mg Tab.subl 1 Tab SL UD Coumadin (Warfarin Sodium) 3 Mg Tablet 1 Tab PO DAILY Proair Hfa Inhaler (Albuterol Sulfate) 8.5 Gm Hfa.aer.ad 1-2 Inh IH Q4-6 HRS PRN Lipitor (Atorvastatin Calcium) 80 Mg Tablet 80 Mg PO DAILY Vitals/I & O Vital Sign - Last 24 Hours 04/08/17 04/08/17 04/08/17 04/08/17 09:49 10:00 11:00 11:02 Pulse 69 71 Resp 16 19 B/P (MAP) 101/53 (69) 121/63 (82) Pulse Ox 100 100 100 100 O2 Delivery Ventilator Ventilator Ventilator Ventilator 04/08/17 04/08/17 04/08/17 04/08/17 12:00 12:00 13:00 14:00 Temp 100.6 100.6 Pulse 71 69 71 Resp 18 20 17 B/P (MAP) 111/64 (80) 110/54 (72) 112/53 (72) Pulse Ox 100 100 100 O2 Delivery Ventilator Mechanical Ventilator Ventilator Ventilator 04/08/17 04/08/17 04/08/17 04/08/17 15:00 15:36 16:00 16:00 Temp 101.1 101.1 Pulse 71 69 Resp 17 18 B/P (MAP) 127/61 (83) 111/50 (70) Pulse Ox 100 100 100 O2 Delivery Ventilator Ventilator Ventilator Mechanical Ventilator 04/08/17 04/08/17 04/08/17 04/08/17 17:00 18:00 19:00 19:31 Pulse 69 69 69 Resp 16 20 16 B/P (MAP) 114/53 (73) 110/54 (72) 114/59 (77) Pulse Ox 100 100 99 100 O2 Delivery Ventilator Ventilator Ventilator Ventilator 04/08/17 04/08/17 04/08/17 04/08/17 20:00 20:00 21:00 21:05 Temp 100.6 100.6 Pulse 69 72 Resp 16 18 B/P (MAP) 131/67 (88) 119/66 (83) Pulse Ox 100 100 100 O2 Delivery Ventilator Mechanical Ventilator Ventilator Ventilator 04/08/17 04/08/17 04/08/17 04/09/17 22:00 23:00 23:00 00:00 Pulse 71 77 Resp 22 33 B/P (MAP) 104/53 (70) 109/62 (78) Pulse Ox 100 100 100 O2 Delivery Ventilator Ventilator Ventilator Mechanical Ventilator 04/09/17 04/09/17 04/09/17 04/09/17 00:00 01:00 01:20 01:49 Temp 98.9 98.9 Pulse 71 69 Resp 13 16 16 B/P (MAP) 110/56 (74) 110/55 (73) Pulse Ox 100 100 100 100 O2 Delivery Ventilator Ventilator Ventilator Ventilator 04/09/17 04/09/17 04/09/17 04/09/17 02:01 02:19 03:00 03:26 Pulse 69 69 Resp 18 16 16 B/P (MAP) 115/58 (77) 93/55 (68) Pulse Ox 99 100 100 100 O2 Delivery Ventilator Ventilator Ventilator Ventilator 04/09/17 04/09/17 04/09/17 04/09/17 04:00 04:00 05:00 05:32 Temp 99.3 99.3 Pulse 69 68 Resp 17 16 B/P (MAP) 90/52 (65) 90/53 (65) Pulse Ox 100 100 100 O2 Delivery Ventilator Mechanical Ventilator Ventilator Ventilator 04/09/17 04/09/17 04/09/17 04/09/17 06:00 07:00 07:34 07:51 Temp 98.9 98.9 Pulse 68 69 Resp 16 18 B/P (MAP) 93/54 (67) 93/49 (64) Pulse Ox 100 100 100 O2 Delivery Ventilator Ventilator Ventilator 04/09/17 08:19 O2 Delivery Mechanical Ventilator Intake and Output 04/08/17 04/08/17 04/09/17 15:00 23:00 07:00 Intake Total 460 ml 480 ml 1575 ml Output Total 425 ml 509 ml 468 ml Balance 35 ml -29 ml 1107 ml Nutrition Consultation Dietary Evaluation: Recommendations by RD: Increase Calorie Intake, PPN/TPN Comments: Continue TF's with: Peptamen AF, goal rate 60 ml/hr start at 20 ml/hr, increase by 20 ml/hr q8h to goal rate flushes 30 cc q8h while IVF's running Expected Outcomes/Goals: initiation of nutrition support- met tolerate the TF's at goal rate- met meet 75% estimated nutrition needs- met Interpretation of weight loss: >10% in 6 months Malnutrition Findings: Food and Nutrition Intake (Mod: <75% est energy req 7days Reduced Compotype Operator Strength: N/A Reduced Compotype Operator Strength (Non-Sev: N/A Malnutrition related to morbid: No Weight Status: Obese Fluid Accumulation (N/A): N/A KENDRICK MARADIAGA MD Apr 09, 2017 09:13
--- NOTE | 2017-04-09 09:38 | PDOC ---
PULMONARY PROGRESS NOTES Subjective Pt did ok on trial, but not ready for extubation Vitals Vital Signs Date Time Temp Pulse Resp B/P (MAP) Pulse Ox O2 Delivery O2 Flow Rate FiO2 04/09/17 09:16 100 Ventilator 04/09/17 09:14 75 25 110/57 (74) 04/09/17 07:51 98.9 98.9 HEENT: Other (nc at perrl, orally intubated, nose clear, neck, no lap, thyromegaly) Lungs: Clear Cardiovascular: S1, S2 Abdomen: Soft, Non-tender, Other Extremities: No Edema Skin: Warm Labs Laboratory Tests Test 04/08/17 06:00 04/08/17 08:10 04/08/17 17:30 04/09/17 06:05 Prothrombin Time 13.7 SEC (11.7-14.0) Prothromb Time International Ratio 1.1 (0.8-1.1) Albumin 1.6 g/dL (3.4-5.0) O2 Saturation 97 % (92-99) Arterial Blood pH 7.45 (7.35-7.45) Arterial Blood pCO2 at Patient Temp 34 mmHg (35-46) Arterial Blood pO2 at Patient Temp 99 mmHg (65-108) Arterial Blood HCO3 23 mmol/L (21-28) Arterial Blood Base Excess -1 mmol/L (-3-3) FiO2 40 Thyroid Stimulating Hormone (TSH) 6.113 uIU/mL (0.358-3.74) White Blood Count 8.9 x10^3/uL (4.0-11.0) Red Blood Count 2.76 x10^6/uL (4.30-5.70) Hemoglobin 8.1 g/dL (13.0-17.5) Hematocrit 24.3 % (39.0-53.0) Mean Corpuscular Volume 88 fL (79-100) Mean Corpuscular Hemoglobin 29 pg (25-35) Mean Corpuscular Hemoglobin Concent 33 g/dL (31-37) Red Cell Distribution Width 17.7 % (11.5-14.5) Platelet Count 134 x10^3/uL (140-400) Neutrophils (%) (Auto) 48 % (31-73) Lymphocytes (%) (Auto) 38 % (24-48) Monocytes (%) (Auto) 10 % (0-9) Eosinophils (%) (Auto) 4 % (0-3) Basophils (%) (Auto) 0 % (0-3) Neutrophils # (Auto) 4.3 x10^3uL (1.8-7.7) Lymphocytes # (Auto) 3.4 x10^3/uL (1.0-4.8) Monocytes # (Auto) 0.9 x10^3/uL (0.0-1.1) Eosinophils # (Auto) 0.4 x10^3/uL (0.0-0.7) Basophils # (Auto) 0.0 x10^3/uL (0.0-0.2) Sodium Level 145 mmol/L (136-145) Potassium Level 3.8 mmol/L (3.5-5.1) Chloride Level 113 mmol/L (98-107) Carbon Dioxide Level 26 mmol/L (21-32) Anion Gap 6 (6-14) Blood Urea Nitrogen 31 mg/dL (8-26) Creatinine 1.0 mg/dL (0.7-1.3) Estimated GFR (Cockcroft-Gault) 72.6 Glucose Level 125 mg/dL (70-99) Calcium Level 8.3 mg/dL (8.5-10.1) Test 04/09/17 08:20 O2 Saturation 96 % (92-99) Arterial Blood pH 7.41 (7.35-7.45) Arterial Blood pCO2 at Patient Temp 38 mmHg (35-46) Arterial Blood pO2 at Patient Temp 90 mmHg (65-108) Arterial Blood HCO3 23 mmol/L (21-28) Arterial Blood Base Excess -1 mmol/L (-3-3) FiO2 40 Laboratory Tests Test 04/08/17 17:30 04/09/17 06:05 04/09/17 08:20 Thyroid Stimulating Hormone (TSH) 6.113 uIU/mL (0.358-3.74) White Blood Count 8.9 x10^3/uL (4.0-11.0) Red Blood Count 2.76 x10^6/uL (4.30-5.70) Hemoglobin 8.1 g/dL (13.0-17.5) Hematocrit 24.3 % (39.0-53.0) Mean Corpuscular Volume 88 fL (79-100) Mean Corpuscular Hemoglobin 29 pg (25-35) Mean Corpuscular Hemoglobin Concent 33 g/dL (31-37) Red Cell Distribution Width 17.7 % (11.5-14.5) Platelet Count 134 x10^3/uL (140-400) Neutrophils (%) (Auto) 48 % (31-73) Lymphocytes (%) (Auto) 38 % (24-48) Monocytes (%) (Auto) 10 % (0-9) Eosinophils (%) (Auto) 4 % (0-3) Basophils (%) (Auto) 0 % (0-3) Neutrophils # (Auto) 4.3 x10^3uL (1.8-7.7) Lymphocytes # (Auto) 3.4 x10^3/uL (1.0-4.8) Monocytes # (Auto) 0.9 x10^3/uL (0.0-1.1) Eosinophils # (Auto) 0.4 x10^3/uL (0.0-0.7) Basophils # (Auto) 0.0 x10^3/uL (0.0-0.2) Sodium Level 145 mmol/L (136-145) Potassium Level 3.8 mmol/L (3.5-5.1) Chloride Level 113 mmol/L (98-107) Carbon Dioxide Level 26 mmol/L (21-32) Anion Gap 6 (6-14) Blood Urea Nitrogen 31 mg/dL (8-26) Creatinine 1.0 mg/dL (0.7-1.3) Estimated GFR (Cockcroft-Gault) 72.6 Glucose Level 125 mg/dL (70-99) Calcium Level 8.3 mg/dL (8.5-10.1) O2 Saturation 96 % (92-99) Arterial Blood pH 7.41 (7.35-7.45) Arterial Blood pCO2 at Patient Temp 38 mmHg (35-46) Arterial Blood pO2 at Patient Temp 90 mmHg (65-108) Arterial Blood HCO3 23 mmol/L (21-28) Arterial Blood Base Excess -1 mmol/L (-3-3) FiO2 40 Medications Active Scripts Medications Dose Route/Sig Max Daily Dose Days Date Category Augmentin 875-125 Tablet (Amoxicillin/Potassium Clav) 1 Each Tablet 1 Tab PO BID 01/03/17 Reported Proair Hfa (Albuterol Sulfate) 8.5 Gm Hfa.aer.ad 9 Gm IH 01/03/17 Reported Proscar (Finasteride) 5 Mg Tablet 1 Tab PO DAILY 01/03/17 Reported NITROGLYCERIN SubLingual (Nitroglycerin) 0.4 Mg Tab.subl 1 Tab SL UD 01/03/17 Reported Coumadin (Warfarin Sodium) 3 Mg Tablet 1 Tab PO DAILY 01/03/17 Reported Proair Hfa Inhaler (Albuterol Sulfate) 8.5 Gm Hfa.aer.ad 1-2 Inh IH Q4-6 HRS PRN 03/22/14 Reported Lipitor (Atorvastatin Calcium) 80 Mg Tablet 80 Mg PO DAILY 03/22/14 Reported Comments cxr no change in edema Impression . IMPRESSION: 1. Acute hypoxic respiratory failure, most likely related to acute lung injury 2. Acute hemorrhagic shock resulting from retroperitoneal bleed s/p embolization 3. asthma. 4. chronic atrial fibrillation. 5. Acute kidney injury related to acute tubular necrosis from shock, improved renal signed off 6. Leukocytosis 7. Hypovolemic shock 8. Severe protein-calorie malnutrition. 9. Lactic acidosis secondary to hypoperfusion from shock. 10 Bilateral effusion Plan . hold off on extubation I think he will be extubated in next 48 hours lasix d/w family and RN continue the same 1. PS for now 2. Narrow antibx 3. Follow white cell count. 4. Follow blood cultures. 5. elevate hob. 6. s/p 4 PRBC transfusion, 4 ffp. 7. Follow serial hemoglobin. 8. titrate off pressors 9. Bronchodilators. 10. Vitamin K and FFP as needed. JINNY DOWELL MD Apr 09, 2017 09:38
--- NOTE | 2017-04-09 09:51 | RAD ---
Portable chest, 04/09/2017: History: Respiratory failure, ARDS Comparison is made to yesterday's study. The tip of the ET tube lies well above the kenn. An NG tube extends into the stomach. Two right jugular central venous catheters are unchanged in positions. A left-sided transvenous pacemaker remains in place. The heart size is unchanged. The pulmonary vascularity is prominent. There is minimal bilateral perihilar atelectasis/infiltrate. There is persistent blunting of the right lateral costophrenic angle compatible with a small amount pleural fluid. Similar findings were present on yesterday's study. No new abnormality is detected. IMPRESSION: No significant change since yesterday's exam.
[2017-04-09 12:11] LABS: HCO3 ABG 23 mmol/L (21-28); PCO2 ABG 41 mmHg (35-46); PH ABG 7.38 (7.35-7.45); PO2 ABG 80 mmHg (65-108); SAT O2 ABG 95 % (92-99)
[2017-04-09 12:19] LABS: FIO2 ABG 40
[2017-04-09] MEDS: FUROSEMIDE 40 MG/4 ML VIAL. IVP SCH (13:07)
[2017-04-09] MEDS: HALOPERIDOL LACTATE 5 MG/ML VIAL. IVP PRN ×2 (13:07→19:54)
--- NOTE | 2017-04-09 14:49 | PDOC ---
PROGRESS NOTES Assessment Assessment Metabolic encephalopathy. Respiratory failure. Retroperitoneal bleeding. Acute anemia. Leukocytosis. Sepsis? Septic shock. Pamella; failure. AFib Pacemaker placement. RECOMMENDATIONS/PLAN: HCT w/o contrast on hold. Treat medical diseases. OT/PT. Discussed with his and daughters at bedside. HISTORY OF THE PRESENT ILLNESS: 76-y-old male patient with above medical diseases had increased mental status changes since 04/07/17, so Neurology was called for consultation. He gained consciousness on 04/09. PAST MEDICAL HISTORY: Atrial fibrillation COPD BPH Diverticulosis Vertigo Obstructive sleep apnea on CPAP. PAST SURGICAL HISTORY: Pacemaker PCI. FAMILY HISTORY: Three brothers had cancer, one was pancreatic cancer. SOCIAL HISTORY: Denies any tobacco, alcohol or drug use. . ALLERGIES: SULFA AMIODARONE BUDESONIDE FLUTICASONE LEVAQUIN MONTELUKAST SALMETEROL. MEDICATIONS: Refer to MAR REVIEW OF SYSTEMS: Constitutional: No malnutrition, weight loss, cachexia. Head: No recent traumatic brain or head injury. Skin: No edema, or rash. Ear: No infection. Eyes: No vision loss or color blindness. Nose: No bleeding or purulent discharges. Hearing: hearing decrease. Neck: No injury. Cardiac: Pacemaker Placement. Pulmonary: No COPD. GI: No GI ulcer. Urinary/genital: Renal failure. Endocrinologic: No cousin face, craniofacial dysmorphism, polydactyly. Skeletomuscular: No muscular atrophy, deformity. Neurological: see HP. Psychiatric: Denies drug use/abuse. Otherwise, not [id number] review of systems. PHYSICAL EXAMINATION: General appearance is in subacute distress. HEENT: Normocephalic and nontraumatic. Eyes, nose, ears, and throat are unremarkable. Neck is supple. No lymphadenopathy. No crepitus. Cardiovascular: S1, S2, irregular rate and rhythm. Pulmonary: Clear to auscultation bilaterally. Abdomen: Bowel sounds are positive. Extremities: No rash, lesions, or edema. No restriction of range of motion NEUROLOGICAL EXAMINATION: Awake. Not oriented to time, place but knows his and daughters at bedside. PERRL. EOMI. CN: no acute focal findings. Muscle tone: within normal. Muscle strength: Moves all extremities to stimuli. DTR: 1-2 Plantar reflex: Neutral response bilaterally Gait: not examined in bed. Sensory exam: no acute abnormal findings. Not able to access cerebellar signs due to nit follow commands. F-T-N test not performed. Objective Objective Vital Signs Date Time Temp Pulse Resp B/P (MAP) Pulse Ox O2 Delivery O2 Flow Rate FiO2 04/09/17 14:03 69 20 95/46 (62) 99 Ventilator 04/09/17 12:02 99.9 99.9 Intake and Output 04/09/17 07:00 Intake Total 2515 ml Output Total 1402 ml Balance 1113 ml Intake Oral 0 ml IV Total 765 ml Tube Feeding 1590 ml Other 160 ml Output Urine Total 1402 ml Gastric Drainage Total 0 ml Vitals Signs Vitals VS - Last 72 Hours, by Label Date Time Temp Pulse Resp B/P (MAP) Pulse Ox O2 Delivery O2 Flow Rate FiO2 04/09/17 14:03 69 20 95/46 (62) 99 Ventilator 04/09/17 13:18 71 27 126/57 (80) 100 Ventilator 04/09/17 12:51 100 Ventilator 04/09/17 12:02 99.9 71 29 116/51 (72) 100 Ventilator 99.9 04/09/17 11:53 Mechanical Ventilator 04/09/17 11:24 Ventilator 04/09/17 11:22 100 Ventilator 04/09/17 11:11 75 24 145/73 (97) 100 Ventilator 04/09/17 10:12 69 15 94/47 (63) 100 Ventilator 04/09/17 09:16 100 Ventilator 04/09/17 09:14 75 25 110/57 (74) 100 Ventilator 04/09/17 08:19 Mechanical Ventilator 04/09/17 07:51 98.9 98.9 04/09/17 07:34 100 Ventilator 04/09/17 07:00 69 18 93/49 (64) 100 Ventilator 04/09/17 06:00 68 16 93/54 (67) 100 Ventilator 04/09/17 05:32 100 Ventilator 04/09/17 05:00 68 16 90/53 (65) 100 Ventilator 04/09/17 04:00 Mechanical Ventilator 04/09/17 04:00 99.3 69 17 90/52 (65) 100 Ventilator 99.3 04/09/17 03:26 100 Ventilator 04/09/17 03:00 69 16 93/55 (68) 100 Ventilator 04/09/17 02:19 16 100 Ventilator 04/09/17 02:01 69 18 115/58 (77) 99 Ventilator 04/09/17 01:49 16 100 Ventilator 04/09/17 01:20 100 Ventilator 04/09/17 01:00 69 16 110/55 (73) 100 Ventilator 04/09/17 00:00 98.9 71 13 110/56 (74) 100 Ventilator 98.9 04/09/17 00:00 Mechanical Ventilator 04/08/17 23:00 100 Ventilator 04/08/17 23:00 77 33 109/62 (78) 100 Ventilator 04/08/17 22:00 71 22 104/53 (70) 100 Ventilator 04/08/17 21:05 100 Ventilator 04/08/17 21:00 72 18 119/66 (83) 100 Ventilator 04/08/17 20:00 Mechanical Ventilator 04/08/17 20:00 100.6 69 16 131/67 (88) 100 Ventilator 100.6 04/08/17 19:31 100 Ventilator 04/08/17 19:00 69 16 114/59 (77) 99 Ventilator 04/08/17 18:00 69 20 110/54 (72) 100 Ventilator 04/08/17 17:00 69 16 114/53 (73) 100 Ventilator 04/08/17 16:00 Mechanical Ventilator 04/08/17 16:00 101.1 69 18 111/50 (70) 100 Ventilator 101.1 04/08/17 15:36 100 Ventilator 04/08/17 15:00 71 17 127/61 (83) 100 Ventilator 04/08/17 14:00 71 17 112/53 (72) 100 Ventilator 04/08/17 13:00 69 20 110/54 (72) 100 Ventilator 04/08/17 12:00 Mechanical Ventilator 04/08/17 12:00 100.6 71 18 111/64 (80) 100 Ventilator 100.6 04/08/17 11:02 100 Ventilator 04/08/17 11:00 71 19 121/63 (82) 100 Ventilator 04/08/17 10:00 69 16 101/53 (69) 100 Ventilator 04/08/17 09:49 100 Ventilator 04/08/17 09:00 69 16 111/58 (75) 100 Ventilator 04/08/17 08:02 100 Ventilator 04/08/17 08:00 Mechanical Ventilator 04/08/17 08:00 100.2 69 16 102/54 (70) 100 Ventilator 100.2 04/08/17 07:00 69 12 108/62 (77) 100 Ventilator Laboratory Laboratory Laboratory Tests Test 04/08/17 17:30 04/09/17 06:05 04/09/17 08:20 04/09/17 12:10 Vitamin B12 Level 642 pg/mL (247-911) Thyroid Stimulating Hormone (TSH) 6.113 uIU/mL (0.358-3.74) White Blood Count 8.9 x10^3/uL (4.0-11.0) Red Blood Count 2.76 x10^6/uL (4.30-5.70) Hemoglobin 8.1 g/dL (13.0-17.5) Hematocrit 24.3 % (39.0-53.0) Mean Corpuscular Volume 88 fL (79-100) Mean Corpuscular Hemoglobin 29 pg (25-35) Mean Corpuscular Hemoglobin Concent 33 g/dL (31-37) Red Cell Distribution Width 17.7 % (11.5-14.5) Platelet Count 134 x10^3/uL (140-400) Neutrophils (%) (Auto) 48 % (31-73) Lymphocytes (%) (Auto) 38 % (24-48) Monocytes (%) (Auto) 10 % (0-9) Eosinophils (%) (Auto) 4 % (0-3) Basophils (%) (Auto) 0 % (0-3) Neutrophils # (Auto) 4.3 x10^3uL (1.8-7.7) Lymphocytes # (Auto) 3.4 x10^3/uL (1.0-4.8) Monocytes # (Auto) 0.9 x10^3/uL (0.0-1.1) Eosinophils # (Auto) 0.4 x10^3/uL (0.0-0.7) Basophils # (Auto) 0.0 x10^3/uL (0.0-0.2) Sodium Level 145 mmol/L (136-145) Potassium Level 3.8 mmol/L (3.5-5.1) Chloride Level 113 mmol/L (98-107) Carbon Dioxide Level 26 mmol/L (21-32) Anion Gap 6 (6-14) Blood Urea Nitrogen 31 mg/dL (8-26) Creatinine 1.0 mg/dL (0.7-1.3) Estimated GFR (Cockcroft-Gault) 72.6 Glucose Level 125 mg/dL (70-99) Calcium Level 8.3 mg/dL (8.5-10.1) O2 Saturation 96 % (92-99) 95 % (92-99) Arterial Blood pH 7.41 (7.35-7.45) 7.38 (7.35-7.45) Arterial Blood pCO2 at Patient Temp 38 mmHg (35-46) 41 mmHg (35-46) Arterial Blood pO2 at Patient Temp 90 mmHg (65-108) 80 mmHg (65-108) Arterial Blood HCO3 23 mmol/L (21-28) 23 mmol/L (21-28) Arterial Blood Base Excess -1 mmol/L (-3-3) -2 mmol/L (-3-3) FiO2 40 40 Microbiology 04/03/17 Blood Culture - Final, Complete NO GROWTH AFTER 5 DAYS 04/04/17 Gram Stain - Final, Complete Medication Medications Current Medications Acetaminophen (Tylenol) 650 mg PRN Q4HRS PRN PEG MILD PAIN / TEMP Last administered on 04/08/17 18:33; Start 04/08/17 at 17:15 Cefepime HCl 1 gm/ Sodium Chloride 50 ml @ 100 mls/hr Q8HRS IV Last administered on 04/09/17 14:02; Start 04/09/17 at 08:00 Furosemide (Lasix) 40 mg DAILY IVP Last administered on 04/09/17 13:07; Start 04/09/17 at 13:30; Stop 04/15/17 at 13:29 Haloperidol Lactate (Haldol) 5 mg PRN Q6HRS PRN IVP AGITATION Last administered on 04/09/17 13:07; Start 04/09/17 at 13:00 Piperacillin Sod/ Tazobactam Sod 2.25 gm/Sodium Chloride 50 ml @ 100 mls/hr Q8HRS IV ; Start 04/08/17 at 17:30; Stop 04/08/17 at 17:30; Status DC Piperacillin Sod/ Tazobactam Sod 3.375 gm/Sodium Chloride 50 ml @ 100 mls/hr Q6HRS IV ; Start 04/08/17 at 17:00; Stop 04/08/17 at 17:14; Status DC Piperacillin Sod/ Tazobactam Sod 3.375 gm/Sodium Chloride 50 ml @ 100 mls/hr Q6HRS IV Last administered on 04/09/17 06:01; Start 04/08/17 at 18:00; Stop at 07:30; Status DC Vancomycin HCl 1 each 1X ONCE MC ; Start 04/10/17 at 05:30; Stop 04/10/17 at 05 :31 Vancomycin HCl (Vanco Per Pharmacy) 1 each PRN DAILY PRN MC SEE COMMENTS Last administered on 04/09/17 08:18; Start 04/08/17 at 17:15 Vancomycin HCl 1.5 gm/Sodium Chloride 500 ml @ 250 mls/hr Q12H IV Last administered on 04/09/17 06:02; Start 04/09/17 at 06:00 Vancomycin HCl 2 gm/Sodium Chloride 500 ml @ 250 mls/hr 1X ONCE IV Last administered on 04/08/17 17:34; Start 04/08/17 at 18:00; Stop 04/08/17 at 19:59 ; Status DC Comment Review of Relevant I have reviewed the following items sarbjit (where applicable) has been applied. KLARISSA MINOR MD Apr 09, 2017 14:49
[2017-04-09] MEDS: ATORVASTATIN CALCIUM 40 MG TABLET. PO SCH (20:53)
[2017-04-10] VITALS (24 sets, daily range): BP systolic 91–173; BP diastolic 48–85
[2017-04-10] MEDS: CEFEPIME HCL 1 GM in IV NORMAL SALINE 50ML 50 ML IV SCH ×3 (06:20→21:57)
[2017-04-10] MEDS: VANCOMYCIN PER PHARMACY MC PRN (06:55)
[2017-04-10] MEDS: ALBUTEROL SULFATE 2.5 MG/3 ML NEBU. NEB PRN ×3 (07:12→19:45)
--- NOTE | 2017-04-10 07:41 | PDOC ---
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 SKIN: No rash IV: ok Labs Lab Laboratory Tests Test 04/09/17 08:20 04/09/17 12:10 04/10/17 06:10 O2 Saturation 96 % (92-99) 95 % (92-99) Arterial Blood pH 7.41 (7.35-7.45) 7.38 (7.35-7.45) Arterial Blood pCO2 at Patient Temp 38 mmHg (35-46) 41 mmHg (35-46) Arterial Blood pO2 at Patient Temp 90 mmHg (65-108) 80 mmHg (65-108) Arterial Blood HCO3 23 mmol/L (21-28) 23 mmol/L (21-28) Arterial Blood Base Excess -1 mmol/L (-3-3) -2 mmol/L (-3-3) FiO2 40 40 Vancomycin Level Trough 21.8 mcg/mL (10.0-20.0) Vancomycin Last Dose Date 04/09/17 Vancomycin Last Dose Time 1800 Micro SPUTUM CULTURE PRL Final Final report SPUTUM CULT RES 1 Final Klebsiella pneumoniae Moderate growth ANTIMICROBIAL SUSCEPTIBILITY Final Comment S = Susceptible; I = Intermediate; R = Resistant P = Positive; N = Negative MICS are expressed in micrograms per mL Antibiotic RSLT#1 RSLT#2 RSLT#3 RSLT#4 Amoxicillin/Clavulanic Acid S Ampicillin R Cefepime S Ceftriaxone S Cefuroxime S Ciprofloxacin S Ertapenem S Gentamicin S Imipenem S Levofloxacin S Piperacillin R Tetracycline S Tobramycin S Trimethoprim/Sulfa S Performed at: [facility] [address], [place] [id number] Objective Assessment Sepsis vs SIRS - on Levophed Fever Leukocytosis, trending down Retroperitoneal bleed s/p 04/03 Selective/superselective right iliac arteriogram.Trans-microcatheter Gelfoam slurry and microcoil embolization of right iliolumbar artery Aspiration -vomiting 04/03. Kleb MARTHA on HD Resp failure Levoflox allergy - tendon rupture/Bactrim allergy - sores Afib Plan Plan of Care venc and cefepime supportive care WILFRID AGUILAR MD Apr 10, 2017 07:41
--- NOTE | 2017-04-10 08:05 | RAD ---
Portable chest, 04/10/2017: History: Respiratory failure Comparison is made to yesterday's study. The tip of the ET tube lies well above the kenn. An NG tube extends into the stomach. The right jugular dialysis type catheter is been removed. A small right jugular catheter remains in place extending to the level of the atriocaval junction. A left-sided transvenous pacemaker is in place. The heart size is normal. There are persistent hazy bibasilar opacities suggesting pleural fluid and underlying atelectasis/infiltrate. Increasing loss of definition of left hemidiaphragm is probably due to differences in patient positioning. Similar findings were present on 04/08/2017. There is no evidence of pneumothorax. No new abnormality is detected. IMPRESSION: Stable portable chest.
--- NOTE | 2017-04-10 09:36 | PDOC ---
PROGRESS NOTES Chief Complaint Chief Complaint cc: retroperitoneal bleed A/P 1. Retroperitoneal bleed: S/P microcoil embolization of right iliolumbar artery : 2. Acute anemia of blood loss from above: s/p PRBC AND S/P FFP, 3. Coumadin coagulopathy, POA, hx atrial fib 4. Klebsiella pneumoniae 5, Acute respiratory failure on mechanical ventilation,: 6. Hypotensive Shock s/p pressor 7. Chronic lumbago, hypothyroidism in a critically ill 8. Renal failure: s/p Temp HD catheter and HD, 9. 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 ) Heart: Regular rate, Normal S1, Normal S2 Lungs: Clear Abdomen: Normal bowel sounds, Other (less distention) Extremities: No clubbing, No cyanosis, Other (edema) Skin: Other (no bruising) Labs LABS Laboratory Tests Test 04/09/17 12:10 04/10/17 06:10 O2 Saturation 95 % (92-99) Arterial Blood pH 7.38 (7.35-7.45) Arterial Blood pCO2 at Patient Temp 41 mmHg (35-46) Arterial Blood pO2 at Patient Temp 80 mmHg (65-108) Arterial Blood HCO3 23 mmol/L (21-28) Arterial Blood Base Excess -2 mmol/L (-3-3) FiO2 40 Vancomycin Level Trough 21.8 mcg/mL (10.0-20.0) Vancomycin Last Dose Date 04/09/17 Vancomycin Last Dose Time 1800 Review of Systems Review of Systems intubated Assessment and Plan Assessmemt and Plan Problems Medical Problems: (1) Anticoagulated Status: Acute (2) Retroperitoneal bleed Status: Acute Problems: Comment Review of Relevant I have reviewed the following items sarbjit (where applicable) has been applied. Labs Laboratory Tests Test 04/08/17 17:30 04/09/17 06:05 04/09/17 08:20 04/09/17 12:10 Vitamin B12 Level 642 pg/mL (247-911) Thyroid Stimulating Hormone (TSH) 6.113 uIU/mL (0.358-3.74) White Blood Count 8.9 x10^3/uL (4.0-11.0) Red Blood Count 2.76 x10^6/uL (4.30-5.70) Hemoglobin 8.1 g/dL (13.0-17.5) Hematocrit 24.3 % (39.0-53.0) Mean Corpuscular Volume 88 fL (79-100) Mean Corpuscular Hemoglobin 29 pg (25-35) Mean Corpuscular Hemoglobin Concent 33 g/dL (31-37) Red Cell Distribution Width 17.7 % (11.5-14.5) Platelet Count 134 x10^3/uL (140-400) Neutrophils (%) (Auto) 48 % (31-73) Lymphocytes (%) (Auto) 38 % (24-48) Monocytes (%) (Auto) 10 % (0-9) Eosinophils (%) (Auto) 4 % (0-3) Basophils (%) (Auto) 0 % (0-3) Neutrophils # (Auto) 4.3 x10^3uL (1.8-7.7) Lymphocytes # (Auto) 3.4 x10^3/uL (1.0-4.8) Monocytes # (Auto) 0.9 x10^3/uL (0.0-1.1) Eosinophils # (Auto) 0.4 x10^3/uL (0.0-0.7) Basophils # (Auto) 0.0 x10^3/uL (0.0-0.2) Sodium Level 145 mmol/L (136-145) Potassium Level 3.8 mmol/L (3.5-5.1) Chloride Level 113 mmol/L (98-107) Carbon Dioxide Level 26 mmol/L (21-32) Anion Gap 6 (6-14) Blood Urea Nitrogen 31 mg/dL (8-26) Creatinine 1.0 mg/dL (0.7-1.3) Estimated GFR (Cockcroft-Gault) 72.6 Glucose Level 125 mg/dL (70-99) Calcium Level 8.3 mg/dL (8.5-10.1) O2 Saturation 96 % (92-99) 95 % (92-99) Arterial Blood pH 7.41 (7.35-7.45) 7.38 (7.35-7.45) Arterial Blood pCO2 at Patient Temp 38 mmHg (35-46) 41 mmHg (35-46) Arterial Blood pO2 at Patient Temp 90 mmHg (65-108) 80 mmHg (65-108) Arterial Blood HCO3 23 mmol/L (21-28) 23 mmol/L (21-28) Arterial Blood Base Excess -1 mmol/L (-3-3) -2 mmol/L (-3-3) FiO2 40 40 Test 04/10/17 06:10 Vancomycin Level Trough 21.8 mcg/mL (10.0-20.0) Vancomycin Last Dose Date 04/09/17 Vancomycin Last Dose Time 1800 Laboratory Tests Test 04/09/17 12:10 04/10/17 06:10 O2 Saturation 95 % (92-99) Arterial Blood pH 7.38 (7.35-7.45) Arterial Blood pCO2 at Patient Temp 41 mmHg (35-46) Arterial Blood pO2 at Patient Temp 80 mmHg (65-108) Arterial Blood HCO3 23 mmol/L (21-28) Arterial Blood Base Excess -2 mmol/L (-3-3) FiO2 40 Vancomycin Level Trough 21.8 mcg/mL (10.0-20.0) Vancomycin Last Dose Date 04/09/17 Vancomycin Last Dose Time 1800 Microbiology 04/08/17 Blood Culture - Preliminary, Resulted NO GROWTH AFTER 1 DAY 04/04/17 Gram Stain - Final, Complete Medications Current Medications Hydromorphone HCl (Dilaudid) 0.5 mg 1X ONCE IV Last administered on 04/02/17t 03:31; Start 04/02/17 at 03:15; Stop 04/02/17 at 03:40; Status DC Ondansetron HCl (Zofran) 4 mg 1X ONCE IV Last administered on 04/02/17 03:31 ; Start 04/02/17 at 03:15; Stop 04/02/17 at 03:40; Status DC Sodium Chloride 1,000 ml @ 1,000 mls/hr 1X ONCE IV Last administered on 03:31; Start 04/02/17 at 03:15; Stop 04/02/17 at 04:14; Status DC Ondansetron HCl (Zofran) 4 mg PRN Q8HRS PRN IV NAUSEA/VOMITING Last administered on 04/02/17 16:23; Start 04/02/17 at 04:15; Stop 04/03/17 at 04:14 ; Status DC Fentanyl Citrate (Fentanyl 2ml Vial) 50 mcg PRN Q1HR PRN IV PAIN Last administered on 04/02/17 15:18; Start 04/02/17 at 04:15; Stop 04/03/17 at 04:14 ; Status DC Acetaminophen (Tylenol) 650 mg PRN Q4HRS PRN PO FEVER; Start 04/02/17 at 04:15 ; Stop 04/03/17 at 04:14; Status DC Phytonadione (Vitamin K) 2 mg 1X ONCE SQ Last administered on 04/02/17 15:25 ; Start 04/02/17 at 12:00; Stop 04/02/17 at 12:01; Status DC Hydromorphone HCl (Dilaudid) 1 mg PRN Q2HRS PRN IVP PAIN Last administered on 01:49; Start 04/02/17 at 16:15 Ondansetron HCl (Zofran) 4 mg PRN Q6HRS PRN IV NAUSEA/VOMITING; Start 04/03/17 at 08:30 Pantoprazole Sodium (Protonix) 40 mg DAILYAC PO ; Start 04/03/17 at 09:00; Stop 04/04/17 at 11:21; Status DC Albuterol Sulfate (Ventolin Hfa) 1 puff Q2HR PRN IH soa; Start 04/03/17 at 08: 30; Status UNV Amoxicillin/ Clavulanate Potassium (Augmentin 875/ 125mg) 1 tab BIDWMEALS PO Last administered on 04/03/17 18:12; Start 04/03/17 at 09:00; Stop 04/04/17 at 07:31; Status DC Nitroglycerin (Nitrostat) 0.4 mg PRN Q5MIN PRN SL cp; Start 04/03/17 at 08:30 Atorvastatin Calcium (Lipitor) 80 mg QHS PO Last administered on 04/09/17 20: 53; Start 04/03/17 at 21:00 Albuterol Sulfate (Ventolin Neb Soln) 2.5 mg PRN Q2HRS PRN NEB SHORTNESS OF BREATH Last administered on 04/10/17 07:12; Start 04/03/17 at 08:45 Sodium Chloride 1,000 ml @ 150 mls/hr Q6H40M IV Last administered on 05:37; Start 04/03/17 at 09:00; Stop 04/08/17 at 11:39; Status DC Sodium Chloride 1,000 ml @ 1,000 mls/hr 1X ONCE IV Last administered on 09:00; Start 04/03/17 at 09:00; Stop 04/03/17 at 09:59; Status DC Norepinephrine Bitartrate 250 ml @ 0 mls/hr CONT PRN IV SEE I/O RECORD Last administered on 04/05/17 17:14; Start 04/03/17 at 11:00 Iohexol (Omnipaque 350 Mg/ml) 90 ml 1X ONCE IV Last administered on 04/03/17 12:27; Start 04/03/17 at 12:15; Stop 04/03/17 at 12:16; Status DC Iohexol (Omnipaque 300 Mg/ml) 50 ml STK-MED ONCE .ROUTE ; Start 04/03/17 at 13: 27; Stop 04/03/17 at 13:28; Status DC Iohexol (Omnipaque 300 Mg/ml) 100 ml STK-MED ONCE .ROUTE ; Start 04/03/17 at 13: 27; Stop 04/03/17 at 13:28; Status DC Lidocaine/Sodium Bicarbonate (Buffered Lidocaine 1%) 20 ml STK-MED ONCE IJ ; Start 04/03/17 at 13:27; Stop 04/03/17 at 13:28; Status DC Heparin Sodium/ Sodium Chloride 1,500 ml @ As Directed STK-MED ONCE .ROUTE ; Start 04/03/17 at 13:28; Stop 04/03/17 at 13:29; Status DC Gelatin (Gelfoam Size 12-7mm) 1 each STK-MED ONCE .ROUTE ; Start 04/03/17 at 13 :52; Stop 04/03/17 at 13:53; Status DC Fentanyl Citrate (Fentanyl 2ml Vial) 100 mcg STK-MED ONCE .ROUTE ; Start at 13:54; Stop 04/03/17 at 13:55; Status DC Midazolam HCl (Versed) 2 mg STK-MED ONCE .ROUTE ; Start 04/03/17 at 13:54; Stop 04/03/17 at 13:55; Status DC Rocuronium [place] (Zemuron) 50 mg STK-MED ONCE .ROUTE ; Start 04/03/17 at 14:30 ; Stop 04/03/17 at 14:31; Status DC Propofol 20 ml @ As Directed STK-MED ONCE IV ; Start 04/03/17 at 14:30; Stop at 14:31; Status DC Succinylcholine Chloride (Anectine) 200 mg STK-MED ONCE .ROUTE ; Start 04/03/17 at 14:32; Stop 04/03/17 at 14:33; Status DC Iohexol (Omnipaque 300 Mg/ml) 100 ml STK-MED ONCE .ROUTE ; Start 04/03/17 at 14: 53; Stop 04/03/17 at 14:54; Status DC Propofol 100 ml @ As Directed STK-MED ONCE IV ; Start 04/03/17 at 15:16; Stop 04/03/17 at 15:17; Status DC Heparin Sodium/ Sodium Chloride 1,000 unit 1X ONCE IART Last administered on 16:46; Start 04/03/17 at 15:30; Stop 04/03/17 at 15:31; Status DC Lidocaine/Sodium Bicarbonate (Buffered Lidocaine 1%) 20 ml 1X ONCE IJ Last administered on 04/03/17 16:46; Start 04/03/17 at 15:30; Stop 04/03/17 at 15:31 ; Status DC Midazolam HCl (Versed) 1 mg 1X ONCE IV Last administered on 04/03/17 16:55; Start 04/03/17 at 14:00; Stop 04/03/17 at 15:23; Status DC Fentanyl Citrate (Fentanyl 2ml Vial) 50 mcg 1X ONCE IV Last administered on 16:56; Start 04/03/17 at 14:00; Stop 04/03/17 at 15:23; Status DC Iohexol (Omnipaque 300 Mg/ml) 100 ml 1X ONCE IART Last administered on 16:45; Start 04/03/17 at 15:30; Stop 04/03/17 at 15:31; Status DC Ondansetron HCl (Zofran) 4 mg 1X ONCE IV Last administered on 04/03/17 16:48 ; Start 04/03/17 at 14:08; Stop 04/03/17 at 15:23; Status DC Gelatin (Gelfoam Size 12-7mm) 1 each STK-MED ONCE .ROUTE ; Start 04/03/17 at 15 :41; Stop 04/03/17 at 15:42; Status DC Nitroglycerin (Nitroglycerin) 200 mcg 1X ONCE IART Last administered on 16:47; Start 04/03/17 at 16:15; Stop 04/03/17 at 16:16; Status DC Chlorhexidine Gluconate (Peridex) 15 ml BID MM Last administered on 04/09/17 20:52; Start 04/03/17 at 21:00 Propofol 100 ml @ 0 mls/hr CONT PRN IV SEE I/O RECORD; Start 04/03/17 at 17:15 Sodium Bicarbonate 100 meq 1X ONCE IV Last administered on 04/03/17 18:12; Start 04/03/17 at 18:00; Stop 04/03/17 at 18:01; Status DC Sodium Bicarbonate 100 meq 1X ONCE IV Last administered on 04/03/17 21:04; Start 04/03/17 at 20:15; Stop 04/03/17 at 20:16; Status DC Phenylephrine HCl 20 mg/Sodium Chloride 252 ml @ 0 mls/hr CONT PRN IV SEE I/O RECORD; Start 04/03/17 at 21:45 Sodium Chloride 1,000 ml @ 1,000 mls/hr 1X ONCE IV Last administered on 22:08; Start 04/03/17 at 21:45; Stop 04/03/17 at 22:44; Status DC Midazolam HCl 100 ml @ 0 mls/hr CONT PRN IV SEE I/O RECORD Last administered on 04/05/17 23:06; Start 04/03/17 at 21:45 Vancomycin HCl (Vanco Per Pharmacy) 1 each PRN DAILY PRN MC SEE COMMENTS Last administered on 04/03/17 22:01; Start 04/03/17 at 22:00; Stop 04/04/17 at 07:29 ; Status DC Piperacillin Sod/ Tazobactam Sod (Zosyn Per Pharmacy) 1 each PRN DAILY PRN MC SEE COMMENTS; Start 04/03/17 at 22:00; Stop 04/04/17 at 07:29; Status DC Vancomycin HCl 2 gm/Sodium Chloride 500 ml @ 250 mls/hr 1X ONCE IV Last administered on 04/03/17 22:09; Start 04/03/17 at 22:00; Stop 04/03/17 at 23:59 ; Status DC Piperacillin Sod/ Tazobactam Sod 4.5 gm/Sodium Chloride 100 ml @ 200 mls/hr Q6HRS IV Last administered on 04/04/17 05:37; Start 04/04/17 at 00:00; Stop at 07:29; Status DC Vancomycin HCl 1.25 gm/Sodium Chloride 250 ml @ 167 mls/hr Q12H IV ; Start at 10:00; Stop 04/04/17 at 10:00; Status DC Vancomycin HCl 1 each 1X ONCE MC ; Start 04/05/17 at 09:30; Stop 04/05/17 at 09 :31; Status Cancel Sodium Chloride 1,000 ml @ 1,000 mls/hr 1X ONCE IV Last administered on 23:27; Start 04/03/17 at 23:30; Stop 04/04/17 at 00:29; Status DC Sodium Chloride 500 ml @ 500 mls/hr 1X ONCE IV Last administered on 00:28; Start 04/04/17 at 00:30; Stop 04/04/17 at 01:30; Status DC Vancomycin HCl 1.5 gm/Sodium Chloride 500 ml @ 250 mls/hr Q24H IV ; Start 04/04 at 22:00; Stop 04/04/17 at 22:00; Status DC Piperacillin Sod/ Tazobactam Sod 2.25 gm/Sodium Chloride 50 ml @ 100 mls/hr Q6HRS IV Last administered on 04/07/17 05:37; Start 04/04/17 at 12:00; Stop at 08:12; Status DC Lidocaine/Sodium Bicarbonate (Buffered Lidocaine 1%) 3 ml 1X ONCE IJ Last administered on 04/04/17 09:15; Start 04/04/17 at 09:15; Stop 04/04/17 at 09:16 ; Status DC Heparin Sodium/ Sodium Chloride 60 unit 1X ONCE IV Last administered on 09:51; Start 04/04/17 at 09:15; Stop 04/04/17 at 09:16; Status DC Heparin Sodium (Porcine) (Heparin Sodium) 10,000 unit STK-MED ONCE .ROUTE ; Start 04/04/17 at 09:17; Stop 04/04/17 at 09:18; Status DC Micafungin Sodium 100 mg/Dextrose 100 ml @ 100 mls/hr Q24H IV Last administered on 04/06/17 09:35; Start 04/04/17 at 10:00; Stop 04/07/17 at 08:12 ; Status DC Pantoprazole Sodium (Protonix Vial) 40 mg DAILYAC IVP Last administered on 04/09 08:41; Start 04/04/17 at 11:30 Lidocaine/Sodium Bicarbonate (Buffered Lidocaine 1%) 3 ml 1X ONCE IJ Last administered on 04/04/17 11:59; Start 04/04/17 at 11:30; Stop 04/04/17 at 11:31 ; Status DC Heparin Sodium/ Sodium Chloride 60 unit 1X ONCE IV Last administered on 11:59; Start 04/04/17 at 11:30; Stop 04/04/17 at 11:31; Status DC Heparin Sodium (Porcine) (Heparin Sodium) 2,500 unit 1X ONCE INT CAT Last administered on 04/04/17 11:58; Start 04/04/17 at 11:30; Stop 04/04/17 at 11:31 ; Status DC Heparin Sodium (Porcine) (Heparin Sodium) 10,000 unit STK-MED ONCE .ROUTE ; Start 04/04/17 at 11:33; Stop 04/04/17 at 11:34; Status DC Darbepoetin Shukri (Aranesp) 60 mcg WEEKLYHS SQ Last administered on 04/04/17 21 :06; Start 04/04/17 at 21:00 Phytonadione 10 mg/Sodium Chloride 51 ml @ 102 mls/hr 1X ONCE IV Last administered on 04/04/17 13:16; Start 04/04/17 at 13:00; Stop 04/04/17 at 13:29 ; Status DC Sodium Chloride 1,000 ml @ 1,000 mls/hr Q1H PRN IV hypotension; Start 04/04/17 at 13:26; Stop 04/04/17 at 19:25; Status DC Diphenhydramine HCl (Benadryl) 25 mg 1X PRN PRN IV ITCHING; Start 04/04/17 at 13:30; Stop 04/05/17 at 13:29; Status DC Diphenhydramine HCl (Benadryl) 25 mg 1X PRN PRN IV ITCHING; Start 04/04/17 at 13:30; Stop 04/05/17 at 13:29; Status DC Sodium Chloride (Normal Saline Flush) 10 ml 1X PRN PRN IV AP catheter pack; Start 04/04/17 at 13:30; Stop 04/05/17 at 13:29; Status DC Sodium Chloride (Normal Saline Flush) 10 ml 1X PRN PRN IV W[employer]ER catheter pack; Start 04/04/17 at 13:30; Stop 04/05/17 at 13:29; Status DC Info (PHARMACY MONITORING -- do not chart) 1 each PRN DAILY PRN MC SEE COMMENTS ; Start 04/04/17 at 13:30; Status Cancel Calcium Gluconate (Calcium Gluconate) 1,000 mg 1X ONCE IVP Last administered on 04/06/17 11:17; Start 04/06/17 at 11:30; Stop 04/06/17 at 11:31; Status DC Vecuronium [place] (Norcuron Bolus) 10 mg 1X ONCE IV Last administered on 04/06 18:24; Start 04/06/17 at 18:30; Stop 04/06/17 at 18:31; Status DC Propofol 100 ml @ 0 mls/hr 1X STAT IV Last administered on 04/06/17 18:18; Start 04/06/17 at 18:18; Stop 04/06/17 at 18:28; Status DC Ceftriaxone Sodium 1 gm/ Sodium Chloride 50 ml @ 100 mls/hr Q24H IV Last administered on 04/08/17 08:27; Start 04/07/17 at 09:00; Stop 04/08/17 at 17:07 ; Status DC Acetaminophen (Tylenol) 650 mg PRN Q4HRS PRN PEG MILD PAIN / TEMP Last administered on 04/08/17 18:33; Start 04/08/17 at 17:15 Piperacillin Sod/ Tazobactam Sod 2.25 gm/Sodium Chloride 50 ml @ 100 mls/hr Q8HRS IV ; Start 04/08/17 at 17:30; Stop 04/08/17 at 17:30; Status DC Vancomycin HCl (Vanco Per Pharmacy) 1 each PRN DAILY PRN MC SEE COMMENTS Last administered on 04/10/17 06:55; Start 04/08/17 at 17:15 Piperacillin Sod/ Tazobactam Sod 3.375 gm/Sodium Chloride 50 ml @ 100 mls/hr Q6HRS IV ; Start 04/08/17 at 17:00; Stop 04/08/17 at 17:14; Status DC Vancomycin HCl 2 gm/Sodium Chloride 500 ml @ 250 mls/hr 1X ONCE IV Last administered on 04/08/17 17:34; Start 04/08/17 at 18:00; Stop 04/08/17 at 19:59 ; Status DC Piperacillin Sod/ Tazobactam Sod 3.375 gm/Sodium Chloride 50 ml @ 100 mls/hr Q6HRS IV Last administered on 04/09/17 06:01; Start 04/08/17 at 18:00; Stop at 07:30; Status DC Vancomycin HCl 1.5 gm/Sodium Chloride 500 ml @ 250 mls/hr Q12H IV Last administered on 04/09/17 17:52; Start 04/09/17 at 06:00; Stop 04/10/17 at 06:48 ; Status DC Vancomycin HCl 1 each 1X ONCE MC Last administered on 04/10/17 05:30; Start 04/10/17 at 05:30; Stop 04/10/17 at 05:31; Status DC Cefepime HCl 1 gm/ Sodium Chloride 50 ml @ 100 mls/hr Q8HRS IV Last administered on 04/10/17 06:20; Start 04/09/17 at 08:00 Haloperidol Lactate (Haldol) 5 mg PRN Q6HRS PRN IVP AGITATION Last administered on 04/09/17 19:54; Start 04/09/17 at 13:00 Furosemide (Lasix) 40 mg DAILY IVP Last administered on 04/09/17 13:07; Start 04/09/17 at 13:30; Stop 04/15/17 at 13:29 Vancomycin HCl 1.25 gm/Sodium Chloride 250 ml @ 167 mls/hr Q12H IV ; Start at 18:00 Vancomycin HCl 1 each 1X ONCE MC ; Start 04/11/17 at 17:30; Stop 04/11/17 at 17 :31 Active Scripts Active Reported Augmentin 875-125 Tablet (Amoxicillin/Potassium Clav) 1 Each Tablet 1 Tab PO BID Proair Hfa (Albuterol Sulfate) 8.5 Gm Hfa.aer.ad 9 Gm IH Proscar (Finasteride) 5 Mg Tablet 1 Tab PO DAILY NITROGLYCERIN SubLingual (Nitroglycerin) 0.4 Mg Tab.subl 1 Tab SL UD Coumadin (Warfarin Sodium) 3 Mg Tablet 1 Tab PO DAILY Proair Hfa Inhaler (Albuterol Sulfate) 8.5 Gm Hfa.aer.ad 1-2 Inh IH Q4-6 HRS PRN Lipitor (Atorvastatin Calcium) 80 Mg Tablet 80 Mg PO DAILY Vitals/I & O Vital Sign - Last 24 Hours 04/09/17 04/09/17 04/09/17 04/09/17 10:12 11:11 11:22 11:24 Pulse 69 75 Resp 15 24 B/P (MAP) 94/47 (63) 145/73 (97) Pulse Ox 100 100 100 O2 Delivery Ventilator Ventilator Ventilator Ventilator 04/09/17 04/09/17 04/09/17 04/09/17 11:53 12:02 12:51 13:18 Temp 99.9 99.9 Pulse 71 71 Resp 29 27 B/P (MAP) 116/51 (72) 126/57 (80) Pulse Ox 100 100 100 O2 Delivery Mechanical Ventilator Ventilator Ventilator Ventilator 6/21/04/09/17 04/09/17 04/09/17 14:03 15:00 15:22 15:39 Pulse 69 74 Resp 20 30 B/P (MAP) 95/46 (62) 121/50 (73) Pulse Ox 99 99 100 O2 Delivery Ventilator Ventilator Ventilator Ventilator 04/09/17 04/09/17 04/09/17 04/09/17 16:03 16:06 16:59 17:00 Temp 99.8 99.8 Pulse 69 73 Resp 20 27 B/P (MAP) 102/48 (66) 110/50 (70) Pulse Ox 99 100 100 O2 Delivery Mechanical Ventilator Ventilator Ventilator Ventilator 04/09/17 04/09/17 04/09/17 04/09/17 18:04 19:00 19:45 19:54 Pulse 69 71 Resp 23 16 B/P (MAP) 133/57 (82) 125/57 (79) Pulse Ox 100 100 100 O2 Delivery Ventilator Ventilator Mechanical Ventilator Ventilator 04/09/17 04/09/17 04/09/17 04/09/17 20:00 21:00 21:48 22:00 Temp 100.9 100.9 Pulse 69 68 71 Resp 23 16 30 B/P (MAP) 90/46 (61) 96/46 (63) 116/58 (77) Pulse Ox 100 100 100 100 O2 Delivery Ventilator Ventilator Ventilator Ventilator 04/09/17 04/10/17 04/10/17 04/10/17 23:00 00:00 00:00 00:17 Temp 99.7 99.7 Pulse 69 78 Resp 16 21 B/P (MAP) 106/57 (73) 113/59 (77) Pulse Ox 100 100 100 O2 Delivery Ventilator Mechanical Ventilator Ventilator Ventilator 04/10/17 04/10/17 04/10/17 04/10/17 01:00 02:00 02:08 03:00 Temp 99.8 99.8 Pulse 70 70 72 Resp 21 19 24 B/P (MAP) 97/50 (66) 99/48 (65) 107/52 (70) Pulse Ox 100 100 100 100 O2 Delivery Ventilator Ventilator Ventilator Ventilator 04/10/17 04/10/17 04/10/17 04/10/17 04:00 04:00 04:05 05:00 Pulse 68 68 Resp 16 19 B/P (MAP) 100/50 (67) 119/66 (83) Pulse Ox 100 100 100 O2 Delivery Mechanical Ventilator Ventilator Ventilator Ventilator 04/10/17 04/10/17 04/10/17 04/10/17 05:37 06:00 07:13 08:00 Pulse 106 Resp 18 B/P (MAP) 153/71 (98) Pulse Ox 100 100 100 O2 Delivery Ventilator Ventilator Ventilator Mechanical Ventilator 04/10/17 08:23 Pulse Ox 100 O2 Delivery Ventilator Intake and Output 04/09/17 04/09/17 04/10/17 15:00 23:00 07:00 Intake Total 600 ml 646 ml 1610 ml Output Total 800 ml 1265 ml 520 ml Balance -200 ml -619 ml 1090 ml Nutrition Consultation Dietary Evaluation: Recommendations by RD: Increase Calorie Intake, PPN/TPN Comments: Continue TF's with: Peptamen AF, goal rate 60 ml/hr start at 20 ml/hr, increase by 20 ml/hr q8h to goal rate flushes 200cc q6h Expected Outcomes/Goals: initiation of nutrition support- met tolerate the TF's at goal rate- met meet 75% estimated nutrition needs- met Interpretation of weight loss: >10% in 6 months Malnutrition Findings: Food and Nutrition Intake (Mod: <75% est energy req 7days Reduced Amphibian Crewmember Strength: N/A Reduced Amphibian Crewmember Strength (Non-Sev: N/A Malnutrition related to morbid: No Weight Status: Obese Fluid Accumulation (N/A): N/A WILBUR MOSS MD Apr 10, 2017 09:36
--- NOTE | 2017-04-10 09:44 | PDOC ---
PULMONARY PROGRESS NOTES Subjective PT SEEN ON TRIAL LOOKED BETTER Vitals Vital Signs Date Time Temp Pulse Resp B/P (MAP) Pulse Ox O2 Delivery O2 Flow Rate FiO2 04/10/17 08:23 100 Ventilator 04/10/17 06:00 106 18 153/71 (98) 04/10/17 03:00 99.8 99.8 HEENT: Other (nc at perrl, orally intubated, nose clear, neck, no lap, thyromegaly) Lungs: Clear Cardiovascular: S1, S2 Abdomen: Soft, Non-tender, Other Extremities: No Edema Skin: Warm Labs Laboratory Tests Test 04/08/17 17:30 04/09/17 06:05 04/09/17 08:20 04/09/17 12:10 Vitamin B12 Level 642 pg/mL (247-911) Thyroid Stimulating Hormone (TSH) 6.113 uIU/mL (0.358-3.74) White Blood Count 8.9 x10^3/uL (4.0-11.0) Red Blood Count 2.76 x10^6/uL (4.30-5.70) Hemoglobin 8.1 g/dL (13.0-17.5) Hematocrit 24.3 % (39.0-53.0) Mean Corpuscular Volume 88 fL (79-100) Mean Corpuscular Hemoglobin 29 pg (25-35) Mean Corpuscular Hemoglobin Concent 33 g/dL (31-37) Red Cell Distribution Width 17.7 % (11.5-14.5) Platelet Count 134 x10^3/uL (140-400) Neutrophils (%) (Auto) 48 % (31-73) Lymphocytes (%) (Auto) 38 % (24-48) Monocytes (%) (Auto) 10 % (0-9) Eosinophils (%) (Auto) 4 % (0-3) Basophils (%) (Auto) 0 % (0-3) Neutrophils # (Auto) 4.3 x10^3uL (1.8-7.7) Lymphocytes # (Auto) 3.4 x10^3/uL (1.0-4.8) Monocytes # (Auto) 0.9 x10^3/uL (0.0-1.1) Eosinophils # (Auto) 0.4 x10^3/uL (0.0-0.7) Basophils # (Auto) 0.0 x10^3/uL (0.0-0.2) Sodium Level 145 mmol/L (136-145) Potassium Level 3.8 mmol/L (3.5-5.1) Chloride Level 113 mmol/L (98-107) Carbon Dioxide Level 26 mmol/L (21-32) Anion Gap 6 (6-14) Blood Urea Nitrogen 31 mg/dL (8-26) Creatinine 1.0 mg/dL (0.7-1.3) Estimated GFR (Cockcroft-Gault) 72.6 Glucose Level 125 mg/dL (70-99) Calcium Level 8.3 mg/dL (8.5-10.1) O2 Saturation 96 % (92-99) 95 % (92-99) Arterial Blood pH 7.41 (7.35-7.45) 7.38 (7.35-7.45) Arterial Blood pCO2 at Patient Temp 38 mmHg (35-46) 41 mmHg (35-46) Arterial Blood pO2 at Patient Temp 90 mmHg (65-108) 80 mmHg (65-108) Arterial Blood HCO3 23 mmol/L (21-28) 23 mmol/L (21-28) Arterial Blood Base Excess -1 mmol/L (-3-3) -2 mmol/L (-3-3) FiO2 40 40 Test 04/10/17 06:10 Vancomycin Level Trough 21.8 mcg/mL (10.0-20.0) Vancomycin Last Dose Date 04/09/17 Vancomycin Last Dose Time 1800 Laboratory Tests Test 04/09/17 12:10 04/10/17 06:10 O2 Saturation 95 % (92-99) Arterial Blood pH 7.38 (7.35-7.45) Arterial Blood pCO2 at Patient Temp 41 mmHg (35-46) Arterial Blood pO2 at Patient Temp 80 mmHg (65-108) Arterial Blood HCO3 23 mmol/L (21-28) Arterial Blood Base Excess -2 mmol/L (-3-3) FiO2 40 Vancomycin Level Trough 21.8 mcg/mL (10.0-20.0) Vancomycin Last Dose Date 04/09/17 Vancomycin Last Dose Time 1800 Medications Active Scripts Medications Dose Route/Sig Max Daily Dose Days Date Category Augmentin 875-125 Tablet (Amoxicillin/Potassium Clav) 1 Each Tablet 1 Tab PO BID 01/03/17 Reported Proair Hfa (Albuterol Sulfate) 8.5 Gm Hfa.aer.ad 9 Gm IH 01/03/17 Reported Proscar (Finasteride) 5 Mg Tablet 1 Tab PO DAILY 01/03/17 Reported NITROGLYCERIN SubLingual (Nitroglycerin) 0.4 Mg Tab.subl 1 Tab SL UD 01/03/17 Reported Coumadin (Warfarin Sodium) 3 Mg Tablet 1 Tab PO DAILY 01/03/17 Reported Proair Hfa Inhaler (Albuterol Sulfate) 8.5 Gm Hfa.aer.ad 1-2 Inh IH Q4-6 HRS PRN 03/22/14 Reported Lipitor (Atorvastatin Calcium) 80 Mg Tablet 80 Mg PO DAILY 03/22/14 Reported Comments cxr no change in edema Impression . IMPRESSION: 1. Acute hypoxic respiratory failure, most likely related to acute lung injury 2. Acute hemorrhagic shock resulting from retroperitoneal bleed s/p embolization 3. asthma. 4. chronic atrial fibrillation. 5. Acute kidney injury related to acute tubular necrosis from shock, improved renal signed off 6. Leukocytosis 7. Hypovolemic shock 8. Severe protein-calorie malnutrition. 9. Lactic acidosis secondary to hypoperfusion from shock. 10 Bilateral effusion Plan . EXTUBATE TODAY SPOKE WITH FAMILY AT BEDSIDE PT MORE AWAKE AND ALERT lasix d/w family and RN continue the same 1. PS for now 2. Narrow antibx 3. Follow white cell count. 4. Follow blood cultures. 5. elevate hob. 6. s/p 4 PRBC transfusion, 4 ffp. 7. Follow serial hemoglobin. 8. titrate off pressors 9. Bronchodilators. 10. Vitamin K and FFP as needed. JINNY DOWELL MD Apr 10, 2017 09:44
[2017-04-10] MEDS: FUROSEMIDE 40 MG/4 ML VIAL. IVP SCH (10:18)
[2017-04-10] MEDS: PANTOPRAZOLE IV PUSH 40 MG VIAL. IVP SCH (10:18)
[2017-04-10] MEDS: CHLORHEXIDINE 0.12% 15 ML MOUTHWASH. MM SCH ×2 (10:18→21:00)
--- NOTE | 2017-04-10 12:27 | PDOC ---
HENNA HOBBS FOOD AND BEVERAGE ASSISTANT 04/10/17 1227: CARDIO Progress Notes Date and Time Date of Service 04/10/2017 Time of Evaluation 1030 Subjective Subjective: Other (drowsy, off sedation, opens eyes and nods yes that he is not in pain) Vitals Vitals Vital Signs Date Time Temp Pulse Resp B/P (MAP) Pulse Ox O2 Delivery O2 Flow Rate FiO2 04/10/17 10:45 100 Ventilator 04/10/17 06:00 106 18 153/71 (98) 04/10/17 03:00 99.8 99.8 Weight Weight [ ] Input and Output Intake and Output Intake and Output 04/10/17 07:00 Intake Total 2856 ml Output Total 2585 ml Balance 271 ml Intake Oral 0 ml IV Total 1219 ml Tube Feeding 1407 ml Other 230 ml Output Urine Total 2585 ml Gastric Drainage Total 0 ml Laboratory Labs Laboratory Tests Test 04/10/17 06:10 Vancomycin Level Trough 21.8 mcg/mL (10.0-20.0) Vancomycin Last Dose Date 04/09/17 Vancomycin Last Dose Time 1800 Microbiology Micro Microbiology 04/08/17 Blood Culture - Preliminary, Resulted NO GROWTH AFTER 1 DAY 04/04/17 Gram Stain - Final, Complete Review of Systems Constitutional: yes: no symptom reported Physical Exam HEENT: Neck Supple W Full Motion Chest: Symmetric LUNGS: Other (diminished, basilar crackles, intubated with pressure support vent currently) Heart: S1S2, RRR (V paced, no significant ectopies) Abdomen: Soft N/T Extremities: No Calf Tenderness, Other (anasarca) Neurology: other (off sedation, eyes open, tracking) Assessment Assessment 1. Retroperitoneal bleed: S/P embolization to right iliolumbar artery. 2. Acute Respiratory failure with likely aspiration: in process of weaning. 3. Anoxic/metabolic encephalopathy: off sedation, awake and eyes tracking 4. Hypotension/sepsis: BP stable, no pressors, tolerating TF 5. Hx of PAFIB with coumadin therapy: V pacing, with predominant AFIB/flutter. HR 90-100 likely from weaning process, at times slightly restless. 5. CAD: PCI/BMS to LAD 2011. no cardiac symptoms. 11/2015 MPI no ischemia. Stable 6. 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 Hx of tachy-monse syndrome, normal device. 7. Anemia: S/P FFP and PRBC, stable Hgb 8.1. 8. MARTHA: prior temporary HD. resolved per nephrology 9. Hx of large PFO/Lipomatous hypertrophy to interatrial septum: Verified with last NIMCO 11/2015 with EF at 45% Recommendations 1. No further OAC/NOAC for now. Will continue on ASA once cleared by others. No prior plans for PFO closure in the past. With this and AFIB, high risk for embolic CVA. MELISSA ligation or Watchman would be an option with closure of PFO With spontaneous RP bleed also high risk for rebleed with OAC. Would discuss options further with pt once adequate mentation is established as well as with spouse Close f/u with outpt water proofer once DC. 2. Known intolerance to AV jules blocking agents, AV jules ablation in 11/2015. Follows with MAC and accdg to no home antiarrhythmics. 3. Maintain supportive care. JUAN WHIPPLE MD 04/10/17 1444: CARDIO Progress Notes Plan Plan Pt. seen and examined. Agree with above DEALER ACCOUNT MANAGER note. No acute events overnight. Extubated this a.m. Denies any chest pain. Slightly confused. Labs/meds reviewed. Tele unremarkable. Recommend no ASA or anticoagulation from a CV perspective. Outpt eval for left atrial appendage occlusion. Will follow peripherally. HENNA HOBBS APRN Apr 10, 2017 12:27 JUAN WHIPPLE MD Apr 10, 2017 14:44
[2017-04-10] MEDS ORDERED: fentaNYL PF VIAL 100 MCG/2 ML VIAL IV PRN (12:30)
--- NOTE | 2017-04-10 13:48 | RAD ---
Portable abdomen, 04/10/2017: History: Check NG tube placement An NG tube is in place with its tip lying in the body of the stomach. The gas pattern in the upper abdomen is unremarkable. Embolization coils are noted in the right lower quadrant. IMPRESSION: The NG tube extends into the body of the stomach.
[2017-04-10] MEDS: ACETAMINOPHEN 650 MG/20.3 ML SOLUTION. PEG PRN (15:34)
[2017-04-10] MEDS: VANCOMYCIN 1.25 GM in IV NORMAL SALINE 250ML 250 ML IV SCH (18:36)
--- NOTE | 2017-04-10 20:08 | RAD ---
Single view abdomen dated 04/10/2017. Comparison made to study dated same day. CLINICAL INDICATION: Advancement of NG tube. FINDINGS: Single upright portable exam performed. NG tube tip projected to the level of gastric fundus. Nondilated gas-filled loops of bowel throughout. Right internal jugular catheter with tip projecting to the level of the proximal right atrium. There is some patchy and linear opacities throughout both lungs, atelectasis versus mild edema. There is a prominent interface along the right chest that is most consistent with skin fold. IMPRESSION: NG tube with tip projecting to the level of the gastric fundus. Electronically signed by: Ab El MD (04/10/2017 8:04 PM)
[2017-04-10] MEDS: ATORVASTATIN CALCIUM 40 MG TABLET. PO SCH (21:58)
[2017-04-11] VITALS (14 sets, daily range): BP systolic 97–162; BP diastolic 47–84
[2017-04-11] MEDS: CEFEPIME HCL 1 GM in IV NORMAL SALINE 50ML 50 ML IV SCH (05:19)
[2017-04-11] MEDS: VANCOMYCIN 1.25 GM in IV NORMAL SALINE 250ML 250 ML IV SCH (05:54)
--- NOTE | 2017-04-11 07:42 | RAD ---
Portable chest, 04/11/2017: History: Respiratory failure Comparison is made to yesterday's study. The ET tube has been removed. An NG tube remains in place, although its tip is not visible. A right jugular central venous catheter extends into the superior aspect of the right atrium. The heart size and pulmonary vascularity are normal. There is improved aeration of the lung basis with only minimal residual atelectasis/infiltrate. No significant volume of pleural fluid is evident in the AP projection. No new abnormality is detected. IMPRESSION: 1. The ET tube has been removed. 2. Improved aeration of the lung bases.
--- NOTE | 2017-04-11 08:43 | PDOC ---
PULMONARY PROGRESS NOTES Subjective PT SEEN ON TRIAL LOOKED BETTER Vitals Vital Signs Date Time Temp Pulse Resp B/P (MAP) Pulse Ox O2 Delivery O2 Flow Rate FiO2 04/11/17 06:00 110 33 142/82 (102) 95 Nasal Cannula 2.0 04/11/17 04:00 98.4 98.4 HEENT: Other (nc at perrl, orally intubated, nose clear, neck, no lap, thyromegaly) Lungs: Clear Cardiovascular: S1, S2 Abdomen: Soft, Non-tender, Other Extremities: No Edema Skin: Warm Labs Laboratory Tests Test 04/09/17 12:10 04/10/17 06:10 O2 Saturation 95 % (92-99) Arterial Blood pH 7.38 (7.35-7.45) Arterial Blood pCO2 at Patient Temp 41 mmHg (35-46) Arterial Blood pO2 at Patient Temp 80 mmHg (65-108) Arterial Blood HCO3 23 mmol/L (21-28) Arterial Blood Base Excess -2 mmol/L (-3-3) FiO2 40 Vancomycin Level Trough 21.8 mcg/mL (10.0-20.0) Vancomycin Last Dose Date 04/09/17 Vancomycin Last Dose Time 1800 Medications Active Scripts Medications Dose Route/Sig Max Daily Dose Days Date Category Augmentin 875-125 Tablet (Amoxicillin/Potassium Clav) 1 Each Tablet 1 Tab PO BID 01/03/17 Reported Proair Hfa (Albuterol Sulfate) 8.5 Gm Hfa.aer.ad 9 Gm IH 01/03/17 Reported Proscar (Finasteride) 5 Mg Tablet 1 Tab PO DAILY 01/03/17 Reported NITROGLYCERIN SubLingual (Nitroglycerin) 0.4 Mg Tab.subl 1 Tab SL UD 01/03/17 Reported Coumadin (Warfarin Sodium) 3 Mg Tablet 1 Tab PO DAILY 01/03/17 Reported Proair Hfa Inhaler (Albuterol Sulfate) 8.5 Gm Hfa.aer.ad 1-2 Inh IH Q4-6 HRS PRN 03/22/14 Reported Lipitor (Atorvastatin Calcium) 80 Mg Tablet 80 Mg PO DAILY 03/22/14 Reported Comments cxr no change in edema Impression . IMPRESSION: 1. Acute hypoxic respiratory failure, most likely related to acute lung injury 2. Acute hemorrhagic shock resulting from retroperitoneal bleed s/p embolization 3. asthma. 4. chronic atrial fibrillation. 5. Acute kidney injury related to acute tubular necrosis from shock, improved renal signed off 6. Leukocytosis 7. Hypovolemic shock 8. Severe protein-calorie malnutrition. 9. Lactic acidosis secondary to hypoperfusion from shock. 10 Bilateral effusion Plan . EXTUBATE TODAY SPOKE WITH FAMILY AT BEDSIDE PT MORE AWAKE AND ALERT lasix d/w family and RN continue the same 1. PS for now 2. Narrow antibx 3. Follow white cell count. 4. Follow blood cultures. 5. elevate hob. 6. s/p 4 PRBC transfusion, 4 ffp. 7. Follow serial hemoglobin. 8. titrate off pressors 9. Bronchodilators. 10. Vitamin K and FFP as needed. JINNY DOWELL MD Apr 11, 2017 08:43
[2017-04-11] MEDS: ALBUTEROL SULFATE 2.5 MG/3 ML NEBU. NEB PRN (08:52)
--- NOTE | 2017-04-11 09:34 | PDOC3 ---
Discharge Summary Visit Information Date of Admission: Apr 02, 2017 Date of Discharge: Apr 11, 2017 Admitting Diagnosis Comment: 1. Retroperitoneal bleed: S/P microcoil embolization of right iliolumbar artery : 2. Acute anemia of blood loss from above: s/p PRBC AND S/P FFP, 3. Coumadin coagulopathy, POA, hx atrial fib 4. Klebsiella pneumoniae 5, Acute respiratory failure on mechanical ventilation,: 6. Hypotensive Shock s/p pressor 7. Chronic lumbago, hypothyroidism in a critically ill 8. Renal failure: s/p Temp HD catheter and HD, 9. ENcephalopathy, multifactorial Final Diagnosis Problems Medical Problems: (1) Anticoagulated Status: Acute (2) Retroperitoneal bleed Status: Acute Brief Hospital Course Allergies Allergies Coded Allergies Type Severity Reaction Last Updated Verified amiodarone Allergy Intermediate 01/04/17 Yes fluticasone Allergy Intermediate MAKES SORES 03/22/14 Yes montelukast Allergy Intermediate EAR PAIN 01/04/17 Yes salmeterol Allergy Intermediate MAKES SORES 03/22/14 Yes Sulfa (Sulfonamide Antibiotics) Allergy Mild "MAKES SORES" 03/22/14 Yes budesonide Allergy Mild RASH 03/22/14 Yes levofloxacin Adverse Reaction Severe RUPTURE OF ACHILLES TENDON 04/08/17 Yes Vital Signs Vital Signs Date Time Temp Pulse Resp B/P (MAP) Pulse Ox O2 Delivery O2 Flow Rate FiO2 04/11/17 08:53 98 Nasal Cannula 2.0 04/11/17 06:00 110 33 142/82 (102) 04/11/17 04:00 98.4 98.4 Lab Results Laboratory Tests Test 04/09/17 12:10 04/10/17 06:10 O2 Saturation 95 % (92-99) Arterial Blood pH 7.38 (7.35-7.45) Arterial Blood pCO2 at Patient Temp 41 mmHg (35-46) Arterial Blood pO2 at Patient Temp 80 mmHg (65-108) Arterial Blood HCO3 23 mmol/L (21-28) Arterial Blood Base Excess -2 mmol/L (-3-3) FiO2 40 Vancomycin Level Trough 21.8 mcg/mL (10.0-20.0) Vancomycin Last Dose Date 04/09/17 Vancomycin Last Dose Time 1800 Brief Hospital Course Mr. Clancy is a 76 old male admitted for abd pain with hypotension to ICU, Was on warf for atrial fib/flutter with indwelling pacer. By second hospital day, was crashing, retroperit bleed grew bigger on stat CT. Needed stat IR chemoembolization, SInce then bleeding stopped and hgb stabilized, Did not need stat Sx but GS was called too. Needed BT few units prior to iR intervention, During that day also needed to be intubated when he was actively bleeding bec became mentally confused, hypotensive, Intubated for about a week. Extubated 04/10, Slightly confused, NPO still on adam TF. patient services rep to eval today. Sat in chair with PT 1 day prior to dc. Ready for select. REaching ut to [facility], mentions need to be on some sort of AC prior to dc,. (not coumadin) PT seen and examined Dw REFRIGERATION SERVICE TECHNICIAN and SW Dc 34 mins cumulative Discharge Information Condition at Discharge: Improved, Stable Disposition/Orders: Other (ltac) Scheduled Amoxicillin/Potassium Clav (Augmentin 875-125 Tablet), 1 TAB PO BID, (Reported) Atorvastatin Calcium (Lipitor), 80 MG PO DAILY, (Reported) Finasteride (Proscar), 1 TAB PO DAILY, (Reported) Nitroglycerin (NITROGLYCERIN SubLingual), 1 TAB SL UD, (Reported) Warfarin Sodium (Coumadin), 1 TAB PO DAILY, (Reported) Scheduled PRN Albuterol Sulfate (Proair Hfa Inhaler), 1-2 INH IH Q4-6 HRS PRN for COUGH, ( Reported) Miscellaneous Medications Albuterol Sulfate (Proair Hfa), 9 GM IH, (Reported) WILBUR MOSS MD Apr 11, 2017 09:34
[2017-04-11] MEDS: CHLORHEXIDINE 0.12% 15 ML MOUTHWASH. MM SCH (12:47)
[2017-04-11] MEDS: PANTOPRAZOLE IV PUSH 40 MG VIAL. IVP SCH (12:47)
[2017-04-11] MEDS: FUROSEMIDE 40 MG/4 ML VIAL. IVP SCH (12:47)
--- NOTE | 2017-04-11 14:08 | PDOC ---
PROGRESS NOTES Assessment Assessment Metabolic encephalopathy. Respiratory failure. Retroperitoneal bleeding. Acute anemia. Leukocytosis. Sepsis? Septic shock. Pamella; failure. AFib Pacemaker placement. RECOMMENDATIONS/PLAN: HCT w/o contrast if able to do. Treat medical diseases. OT/PT. Discussed with his and daughters at bedside before. HISTORY OF THE PRESENT ILLNESS: 76-y-old male patient with above medical diseases had increased mental status changes since 04/07/17, so Neurology was called for consultation. He gained consciousness on 04/09. PAST MEDICAL HISTORY: Atrial fibrillation COPD BPH Diverticulosis Vertigo Obstructive sleep apnea on CPAP. PAST SURGICAL HISTORY: Pacemaker PCI. FAMILY HISTORY: Three brothers had cancer, one was pancreatic cancer. SOCIAL HISTORY: Denies any tobacco, alcohol or drug use. . ALLERGIES: SULFA AMIODARONE BUDESONIDE FLUTICASONE LEVAQUIN MONTELUKAST SALMETEROL. MEDICATIONS: Refer to MEMO REVIEW OF SYSTEMS: Constitutional: No malnutrition, weight loss, cachexia. Head: No recent traumatic brain or head injury. Skin: No edema, or rash. Ear: No infection. Eyes: No vision loss or color blindness. Nose: No bleeding or purulent discharges. Hearing: hearing decrease. Neck: No injury. Cardiac: Pacemaker Placement. Pulmonary: No COPD. GI: No GI ulcer. Urinary/genital: Renal failure. Endocrinologic: No cousin face, craniofacial dysmorphism, polydactyly. Skeletomuscular: No muscular atrophy, deformity. Neurological: see HP. Psychiatric: Denies drug use/abuse. Otherwise, not [id number] review of systems. PHYSICAL EXAMINATION: General appearance is in subacute distress. HEENT: Normocephalic and nontraumatic. Eyes, nose, ears, and throat are unremarkable. Neck is supple. No lymphadenopathy. No crepitus. Cardiovascular: S1, S2, irregular rate and rhythm. Pulmonary: Clear to auscultation bilaterally. Abdomen: Bowel sounds are positive. Extremities: No rash, lesions, or edema. No restriction of range of motion NEUROLOGICAL EXAMINATION: Awake. Not oriented to time, place but knows his and daughters at bedside. PERRL. EOMI. CN: no acute focal findings. Muscle tone: within normal. Muscle strength: Moves all extremities to stimuli. DTR: 1-2 Plantar reflex: Neutral response bilaterally Gait: not examined in bed. Sensory exam: no acute abnormal findings. Not able to access cerebellar signs due to nit follow commands. F-T-N test not performed. Objective Objective Vital Signs Date Time Temp Pulse Resp B/P (MAP) Pulse Ox O2 Delivery O2 Flow Rate FiO2 04/11/17 10:00 74 25 97/55 (69) 97 Nasal Cannula 2.0 04/11/17 08:00 98.2 98.2 Intake and Output 04/11/17 06:59 Intake Total 2050 ml Output Total 2787 ml Balance -737 ml IV Total 374 ml Tube Feeding 1075 ml Other 601 ml Output Urine Total 2787 ml Gastric Drainage Total 0 ml # Bowel Movements 4 Vitals Signs Vitals VS - Last 72 Hours, by Label Date Time Temp Pulse Resp B/P (MAP) Pulse Ox O2 Delivery O2 Flow Rate FiO2 04/11/17 10:00 74 25 97/55 (69) 97 Nasal Cannula 2.0 04/11/17 09:00 68 28 111/61 (78) 98 Nasal Cannula 2.0 04/11/17 08:53 98 Nasal Cannula 2.0 04/11/17 08:00 98.2 94 26 114/66 (82) 95 Nasal Cannula 2.0 98.2 04/11/17 08:00 Nasal Cannula 2.0 04/11/17 07:00 100 25 146/71 (96) 95 Nasal Cannula 2.0 04/11/17 06:00 110 33 142/82 (102) 95 Nasal Cannula 2.0 04/11/17 05:00 115 20 140/80 (100) 93 Nasal Cannula 2.0 04/11/17 04:00 Nasal Cannula 2.0 04/11/17 04:00 98.4 112 27 135/67 (89) 94 Nasal Cannula 2.0 98.4 04/11/17 03:00 116 32 158/84 (108) 99 Nasal Cannula 2.0 04/11/17 02:00 112 26 162/82 (108) 100 Nasal Cannula 2.0 04/11/17 01:00 93 25 104/75 (85) 99 Nasal Cannula 2.0 04/11/17 00:00 97.2 103 25 141/72 (95) 100 Nasal Cannula 2.0 97.2 04/11/17 00:00 Nasal Cannula 2.0 04/10/17 23:00 89 28 151/70 (97) 99 Nasal Cannula 2.0 04/10/17 22:00 100 31 136/81 (99) 99 Nasal Cannula 2.0 04/10/17 21:00 75 17 145/71 (95) 100 Nasal Cannula 2.0 04/10/17 20:00 Nasal Cannula 2.0 04/10/17 20:00 98.4 85 13 140/65 (90) 95 Nasal Cannula 2.0 98.4 04/10/17 19:39 95 Nasal Cannula 2.0 04/10/17 19:00 90 35 119/49 (72) 99 Nasal Cannula 2.0 04/10/17 18:00 98 34 131/65 (87) 99 Nasal Cannula 2.0 04/10/17 17:00 94 34 125/74 (91) 99 Nasal Cannula 2.0 04/10/17 16:00 98.9 112 25 119/62 (81) 100 Nasal Cannula 2.0 98.9 04/10/17 16:00 Nasal Cannula 2.0 04/10/17 15:00 102 31 124/85 (98) 100 Nasal Cannula 2.0 04/10/17 14:00 102 26 129/73 (91) 100 Nasal Cannula 2.0 04/10/17 13:00 112 23 137/74 (95) 98 Room Air 04/10/17 12:00 Room Air 04/10/17 12:00 98.9 96 23 117/67 (84) 96 Room Air 98.9 04/10/17 11:00 90 14 122/63 (82) 100 Ventilator 04/10/17 10:45 100 Ventilator 04/10/17 10:00 98 22 103/55 (71) 100 Ventilator 04/10/17 09:00 108 22 91/56 (68) 100 Ventilator 04/10/17 08:23 100 Ventilator 04/10/17 08:00 Mechanical Ventilator 04/10/17 08:00 98.9 112 32 173/78 (109) 100 Ventilator 98.9 04/10/17 07:13 100 Ventilator 04/10/17 07:00 114 27 146/70 (95) 100 Ventilator Laboratory Laboratory Microbiology 04/08/17 Blood Culture - Preliminary, Resulted NO GROWTH AFTER 2 DAYS 04/04/17 Gram Stain - Final, Complete Medication Medications Current Medications Vancomycin HCl 1 each 1X ONCE MC ; Start 04/12/17 at 05:30; Stop 04/12/17 at 05 :31 Vancomycin HCl 1.25 gm/Sodium Chloride 250 ml @ 167 mls/hr Q12H IV Last administered on 04/11/17t 05:54; Start 04/10/17 at 18:00 Comment Review of Relevant I have reviewed the following items sarbjit (where applicable) has been applied. KLARISSA MINOR MD Apr 11, 2017 14:08
--- NOTE | 2017-04-11 14:10 | PDOC ---
PROGRESS NOTES Assessment Assessment Metabolic encephalopathy. Respiratory failure. Retroperitoneal bleeding. Acute anemia. Leukocytosis. Sepsis? Septic shock. Pamella; failure. AFib Pacemaker placement. RECOMMENDATIONS/PLAN: HCT w/o contrast before Dc here or in new facility. Treat medical diseases. OT/PT. Rehab. Discussed with his and daughters at bedside before. HISTORY OF THE PRESENT ILLNESS: 76-y-old male patient with above medical diseases had increased mental status changes since 04/07/17, so Neurology was called for consultation on 04/08/17. He gained consciousness on 04/09. PAST MEDICAL HISTORY: Atrial fibrillation COPD BPH Diverticulosis Vertigo Obstructive sleep apnea on CPAP. PAST SURGICAL HISTORY: Pacemaker PCI. FAMILY HISTORY: Three brothers had cancer, one was pancreatic cancer. SOCIAL HISTORY: Denies any tobacco, alcohol or drug use. . ALLERGIES: SULFA AMIODARONE BUDESONIDE FLUTICASONE LEVAQUIN MONTELUKAST SALMETEROL. MEDICATIONS: Refer to MAR REVIEW OF SYSTEMS: Constitutional: No malnutrition, weight loss, cachexia. Head: No recent traumatic brain or head injury. Skin: No edema, or rash. Ear: No infection. Eyes: No vision loss or color blindness. Nose: No bleeding or purulent discharges. Hearing: hearing decrease. Neck: No injury. Cardiac: Pacemaker Placement. Pulmonary: No COPD. GI: No GI ulcer. Urinary/genital: Renal failure. Endocrinologic: No cousin face, craniofacial dysmorphism, polydactyly. Skeletomuscular: No muscular atrophy, deformity. Neurological: see HP. Psychiatric: Denies drug use/abuse. Otherwise, not [id number] review of systems. PHYSICAL EXAMINATION: General appearance is in subacute distress. HEENT: Normocephalic and nontraumatic. Eyes, nose, ears, and throat are unremarkable. Neck is supple. No lymphadenopathy. No crepitus. Cardiovascular: S1, S2, irregular rate and rhythm. Pulmonary: Clear to auscultation bilaterally. Abdomen: Bowel sounds are positive. Extremities: No rash, lesions, or edema. No restriction of range of motion NEUROLOGICAL EXAMINATION: Awake. Not oriented to time, place but knows his and daughters at bedside. PERRL. EOMI. CN: no acute focal findings. Muscle tone: within normal. Muscle strength: 4- UE, 2 LE. DTR: 1-2 Plantar reflex: Neutral response bilaterally Gait: not examined in bed. Sensory exam: no acute abnormal findings. Not able to access cerebellar signs due to nit follow commands. F-T-N test not performed. Objective Objective Vital Signs Date Time Temp Pulse Resp B/P (MAP) Pulse Ox O2 Delivery O2 Flow Rate FiO2 04/11/17 10:00 74 25 97/55 (69) 97 Nasal Cannula 2.0 04/11/17 08:00 98.2 98.2 Intake and Output 04/11/17 06:59 Intake Total 2050 ml Output Total 2787 ml Balance -737 ml IV Total 374 ml Tube Feeding 1075 ml Other 601 ml Output Urine Total 2787 ml Gastric Drainage Total 0 ml # Bowel Movements 4 Vitals Signs Vitals VS - Last 72 Hours, by Label Date Time Temp Pulse Resp B/P (MAP) Pulse Ox O2 Delivery O2 Flow Rate FiO2 04/11/17 10:00 74 25 97/55 (69) 97 Nasal Cannula 2.0 04/11/17 09:00 68 28 111/61 (78) 98 Nasal Cannula 2.0 04/11/17 08:53 98 Nasal Cannula 2.0 04/11/17 08:00 98.2 94 26 114/66 (82) 95 Nasal Cannula 2.0 98.2 04/11/17 08:00 Nasal Cannula 2.0 04/11/17 07:00 100 25 146/71 (96) 95 Nasal Cannula 2.0 04/11/17 06:00 110 33 142/82 (102) 95 Nasal Cannula 2.0 04/11/17 05:00 115 20 140/80 (100) 93 Nasal Cannula 2.0 04/11/17 04:00 Nasal Cannula 2.0 04/11/17 04:00 98.4 112 27 135/67 (89) 94 Nasal Cannula 2.0 98.4 04/11/17 03:00 116 32 158/84 (108) 99 Nasal Cannula 2.0 04/11/17 02:00 112 26 162/82 (108) 100 Nasal Cannula 2.0 04/11/17 01:00 93 25 104/75 (85) 99 Nasal Cannula 2.0 04/11/17 00:00 97.2 103 25 141/72 (95) 100 Nasal Cannula 2.0 97.2 04/11/17 00:00 Nasal Cannula 2.0 04/10/17 23:00 89 28 151/70 (97) 99 Nasal Cannula 2.0 04/10/17 22:00 100 31 136/81 (99) 99 Nasal Cannula 2.0 04/10/17 21:00 75 17 145/71 (95) 100 Nasal Cannula 2.0 04/10/17 20:00 Nasal Cannula 2.0 04/10/17 20:00 98.4 85 13 140/65 (90) 95 Nasal Cannula 2.0 98.4 04/10/17 19:39 95 Nasal Cannula 2.0 04/10/17 19:00 90 35 119/49 (72) 99 Nasal Cannula 2.0 04/10/17 18:00 98 34 131/65 (87) 99 Nasal Cannula 2.0 04/10/17 17:00 94 34 125/74 (91) 99 Nasal Cannula 2.0 04/10/17 16:00 98.9 112 25 119/62 (81) 100 Nasal Cannula 2.0 98.9 04/10/17 16:00 Nasal Cannula 2.0 04/10/17 15:00 102 31 124/85 (98) 100 Nasal Cannula 2.0 04/10/17 14:00 102 26 129/73 (91) 100 Nasal Cannula 2.0 04/10/17 13:00 112 23 137/74 (95) 98 Room Air 04/10/17 12:00 Room Air 04/10/17 12:00 98.9 96 23 117/67 (84) 96 Room Air 98.9 04/10/17 11:00 90 14 122/63 (82) 100 Ventilator 04/10/17 10:45 100 Ventilator 04/10/17 10:00 98 22 103/55 (71) 100 Ventilator 04/10/17 09:00 108 22 91/56 (68) 100 Ventilator 04/10/17 08:23 100 Ventilator 04/10/17 08:00 Mechanical Ventilator 04/10/17 08:00 98.9 112 32 173/78 (109) 100 Ventilator 98.9 04/10/17 07:13 100 Ventilator 04/10/17 07:00 114 27 146/70 (95) 100 Ventilator Laboratory Laboratory Microbiology 04/08/17 Blood Culture - Preliminary, Resulted NO GROWTH AFTER 2 DAYS 04/04/17 Gram Stain - Final, Complete Medication Medications Current Medications Vancomycin HCl 1 each 1X ONCE MC ; Start 04/12/17 at 05:30; Stop 04/12/17 at 05 :31 Vancomycin HCl 1.25 gm/Sodium Chloride 250 ml @ 167 mls/hr Q12H IV Last administered on 04/11/17t 05:54; Start 04/10/17 at 18:00 Comment Review of Relevant I have reviewed the following items sarbjit (where applicable) has been applied. KLARISSA MINOR MD Apr 11, 2017 14:10
== END 2017-04-11 13:15 | DRG 981 ==
LOC: ER 02:48 → ED HOLD 04:03 → 1 WEST ICU 07:45
PROVIDERS: ADMIT Internal Medicine; ATTEND Internal Medicine
PROC: 30233K1 Transfusion of Nonautologous Frozen Plasma into Peripheral Vein, Percutaneous Approach (ICD-10-PCS; 2017-04-02)
PROC: 04LE3DZ Occlusion of Right Internal Iliac Artery with Intraluminal Device, Percutaneous Approach (ICD-10-PCS; principal; 2017-04-03)
PROC: 5A1955Z Respiratory Ventilation, Greater than 96 Consecutive Hours (ICD-10-PCS; 2017-04-03)
PROC: 0BH17EZ Insertion of Endotracheal Airway into Trachea, Via Natural or Artificial Opening (ICD-10-PCS; 2017-04-03)
PROC: B41F1ZZ Fluoroscopy of Right Lower Extremity Arteries using Low Osmolar Contrast (ICD-10-PCS; 2017-04-03)
PROC: 30233L1 Transfusion of Nonautologous Fresh Plasma into Peripheral Vein, Percutaneous Approach (ICD-10-PCS; 2017-04-03)
PROC: 30233N1 Transfusion of Nonautologous Red Blood Cells into Peripheral Vein, Percutaneous Approach (ICD-10-PCS; 2017-04-03)
PROC: 02HV33Z Insertion of Infusion Device into Superior Vena Cava, Percutaneous Approach (ICD-10-PCS; 2017-04-04)
PROC: B548ZZA Ultrasonography of Superior Vena Cava, Guidance (ICD-10-PCS; 2017-04-04)
PROC: 05HM33Z Insertion of Infusion Device into Right Internal Jugular Vein, Percutaneous Approach (ICD-10-PCS; 2017-04-04)
PROC: B543ZZA Ultrasonography of Right Jugular Veins, Guidance (ICD-10-PCS; 2017-04-04)
PROC: 5A1D00Z (ICD-10-PCS; 2017-04-04)
DX: D68.32 Hemorrhagic disorder due to extrinsic circulating anticoagulants (principal); A41.9 Sepsis, unspecified organism; J96.00 Acute respiratory failure, unspecified whether with hypoxia or hypercapnia; E43 Unspecified severe protein-calorie malnutrition; G93.41 Metabolic encephalopathy; J96.01 Acute respiratory failure with hypoxia; N17.0 Acute kidney failure with tubular necrosis; R65.21 Severe sepsis with septic shock; D62 Acute posthemorrhagic anemia; G93.1 Anoxic brain damage, not elsewhere classified; I48.92 Unspecified atrial flutter; Q21.1 Atrial septal defect; R58 Hemorrhage, not elsewhere classified; E03.9 Hypothyroidism, unspecified; E78.00 Pure hypercholesterolemia, unspecified; E78.5 Hyperlipidemia, unspecified; G47.33 Obstructive sleep apnea (adult) (pediatric); G89.29 Other chronic pain; I10 Essential (primary) hypertension; I25.10 Atherosclerotic heart disease of native coronary artery without angina pectoris; I48.2 Chronic atrial fibrillation; J06.9 Acute upper respiratory infection, unspecified; J44.9 Chronic obstructive pulmonary disease, unspecified; K57.90 Diverticulosis of intestine, part unspecified, without perforation or abscess without bleeding; N40.0 Benign prostatic hyperplasia without lower urinary tract symptoms; T45.515A Adverse effect of anticoagulants, initial encounter; I49.5 Sick sinus syndrome; M19.90 Unspecified osteoarthritis, unspecified site; K59.00 Constipation, unspecified; M54.5 Low back pain; S80.12XA Contusion of left lower leg, initial encounter; B96.1 Klebsiella pneumoniae [K. pneumoniae] as the cause of diseases classified elsewhere; Z77.22 Contact with and (suspected) exposure to environmental tobacco smoke (acute) (chronic); Z79.01 Long term (current) use of anticoagulants; Z80.0 Family history of malignant neoplasm of digestive organs; Z83.3 Family history of diabetes mellitus; Z86.010 Personal history of colon polyps; Z86.73 Personal history of transient ischemic attack (TIA), and cerebral infarction without residual deficits; Z88.2 Allergy status to sulfonamides; Z95.0 Presence of cardiac pacemaker; Z95.5 Presence of coronary angioplasty implant and graft; Z99.2 Dependence on renal dialysis; Z68.29 Body mass index [BMI] 29.0-29.9, adult; Z88.1 Allergy status to other antibiotic agents; Z88.8 Allergy status to other drugs, medicaments and biological substances; T17.918A Gastric contents in respiratory tract, part unspecified causing other injury, initial encounter; X58.XXXA Exposure to other specified factors, initial encounter; Y93.89 Activity, other specified; Y92.89 Other specified places as the place of occurrence of the external cause; Y99.8 Other external cause status; Z85.07 Personal history of malignant neoplasm of pancreas; Z85.89 Personal history of malignant neoplasm of other organs and systems; Z98.49 Cataract extraction status, unspecified eye; E86.1 Hypovolemia
CPT/HCPCS: 36247; 36415; 36556; 36600; 37244; 71010; 74000; 74174; 74176; 76937; 80048; 80053; 80076; 80202; 81001; 82040; 82310; 82607; 82805; 83605; 83735; 84100; 84443; 85007; 85014; 85018; 85027; 85048; 85049; 85610; 86705; 86706; 86850; 86900; 86901; 86920; 86927; 87040; 87070; 87186; 87205; 87340; 87341; 87641; 93005; 93308; 94002; 94003; 94640; 96361; 96374; 96375; C1713; C1769; C1887; C1892; C1894; C9113; G0269; J0330; J0610; J0692; J0696; J0881; J1170; J1630; J1940; J2248; J2250; J2405; J2543; J2704; J3010; J3370; J3430; J3490; J7030; J7040; J7050; P9016; P9017; Q9967; 92610; 97110; 97116; 97530; 97535; 99285-25

== ENCOUNTER 2017-05-14 07:54 | Inpatient (IN) | payer MEDICARE, BC ==
[~2017-05-14] VITALS: Ht 185.4 cm; Wt 87.6 kg
[2017-05-14 11:00] VITALS: BP 112/73
[2017-05-14] MEDS ORDERED: IOHEXOL 240 MG/ML 50ML VIAL. PO ONE (11:45)
[2017-05-14] MEDS ORDERED: CONTRAST GIVEN MC PRN (11:45)
[2017-05-14] MEDS ORDERED: IOHEXOL 300 MG/ML 75 ML VIAL IV ONE (11:45)
[2017-05-14] MEDS ORDERED: DIPH50CA PO (11:48)
[2017-05-14] MEDS ORDERED: ONDA4TAB7 PO (11:48)
[2017-05-14] MEDS ORDERED: IPRA3AMP NEB (11:48)
[2017-05-14] MEDS ORDERED: TRAZ50TA15 PO (11:48)
[2017-05-14] MEDS ORDERED: FERR220S3 PO (11:48)
[2017-05-14] MEDS ORDERED: ATORVASTATIN CA80 MG PO (11:48)
[2017-05-14] MEDS ORDERED: ASCO500C PO (11:48)
[2017-05-14] MEDS ORDERED: PIPE3.375 IV (11:48)
[2017-05-14] MEDS ORDERED: PROAIR HFA8.5 GM INH (11:48)
[2017-05-14] MEDS ORDERED: BUDE0.5A3 IH (11:48)
[2017-05-14] MEDS ORDERED: MAG1TAB.3 PO (11:48)
[2017-05-14] MEDS ORDERED: ACET500T68 PO (11:48)
[2017-05-14] MEDS ORDERED: TAMS0.4C2 PO (11:48)
[2017-05-14] MEDS ORDERED: FINA5TAB PO (11:48)
[2017-05-14] MEDS ORDERED: BISA-42 PO (11:48)
[2017-05-14] MEDS ORDERED: MAGN2400 PO (11:48)
[2017-05-14] MEDS ORDERED: LACT1CAP2 PO (11:48)
[2017-05-14] MEDS ORDERED: FAMO20TA5 PO (11:48)
[2017-05-14] MEDS ORDERED: DOCU100C28 PO (11:48)
[2017-05-14 11:58] LABS: BASO # 0.1 x10^3/uL (0.0-0.2); BASO % 0 % (0-3); EOS % 5 % (0-3); HEMOGLOBIN 11.3 g/dL (13.0-17.5); LYMPH # 29.1 x10^3/uL (1.0-4.8); LYMPH % 80 % (24-48); MEAN CORPUSCULAR HEMOGLOBIN 29 pg (25-35); MEAN CORPUSCULAR HGB CONC 31 g/dL (31-37); MEAN CORPUSCULAR VOLUME 91 fL (79-100); MONO % 7 % (0-9); NEUT % 7 % (31-73); PLATELET COUNT 187 x10^3/uL (140-400); RED BLOOD COUNT 3.95 x10^6/uL (4.30-5.70); RED CELL DISTRIBUTION WIDTH 19.1 % (11.5-14.5); WHITE BLOOD COUNT 36.2 x10^3/uL (4.0-11.0)
[2017-05-14] MEDS ORDERED: NITROGLYCERIN SUBLINGUAL 0.4 MG BOTTLE OF 25. SL PRN (12:00)
[2017-05-14] MEDS ORDERED: BISACODYL 5 MG TABLET.DR. PO PRN (12:00)
[2017-05-14] MEDS ORDERED: PIPERACILLIN/TAZOBACTAM 3.375 GM VIAL IV SCH (12:00)
[2017-05-14 12:21] LABS: ALBUMIN 2.4 g/dL (3.4-5.0); ALBUMIN/GLOBULIN RATIO 0.6 (1.0-1.7); CALCIUM 8.7 mg/dL (8.5-10.1); CREATININE 1.2 mg/dL (0.7-1.3); GFR 58.9; POTASSIUM 5.3 mmol/L (3.5-5.1); TOTAL BILIRUBIN 0.6 mg/dL (0.2-1.0); TOTAL PROTEIN 6.7 g/dL (6.4-8.2)
[2017-05-14 12:22] LABS: BLOOD UREA NITROGEN 16 mg/dL (8-26); CREATINE KINASE 30 U/L (39-308)
[2017-05-14] MEDS ORDERED: MAGNESIUM HYDROXIDE 2,400 MG/30 ML ORAL.SUSP. PO PRN (12:45)
[2017-05-14 13:03] LABS: % BASOS 2 % (0-3); % EOS 4 % (0-5); PLT ESTIMATE ADEQUATE (ADEQUATE)
--- NOTE | 2017-05-14 13:57 | PDOC ---
Infectious Disease Note Vital Sign Vital Signs Vital Signs Date Time Temp Pulse Resp B/P (MAP) Pulse Ox O2 Delivery O2 Flow Rate FiO2 05/14/17 10:21 Room Air Labs Lab Laboratory Tests Test 05/14/17 11:40 White Blood Count 36.2 x10^3/uL (4.0-11.0) Red Blood Count 3.95 x10^6/uL (4.30-5.70) Hemoglobin 11.3 g/dL (13.0-17.5) Hematocrit 36.0 % (39.0-53.0) Mean Corpuscular Volume 91 fL (79-100) Mean Corpuscular Hemoglobin 29 pg (25-35) Mean Corpuscular Hemoglobin Concent 31 g/dL (31-37) Red Cell Distribution Width 19.1 % (11.5-14.5) Platelet Count 187 x10^3/uL (140-400) Neutrophils (%) (Auto) 7 % (31-73) Lymphocytes (%) (Auto) 80 % (24-48) Monocytes (%) (Auto) 7 % (0-9) Eosinophils (%) (Auto) 5 % (0-3) Basophils (%) (Auto) 0 % (0-3) Neutrophils # (Auto) 2.6 x10^3uL (1.8-7.7) Lymphocytes # (Auto) 29.1 x10^3/uL (1.0-4.8) Monocytes # (Auto) 2.7 x10^3/uL (0.0-1.1) Eosinophils # (Auto) 1.9 x10^3/uL (0.0-0.7) Basophils # (Auto) 0.1 x10^3/uL (0.0-0.2) Segmented Neutrophils % 16 % (35-66) Band Neutrophils % % (0-9) Lymphocytes % 72 % (24-48) Monocytes % 6 % (0-10) Eosinophils % 4 % (0-5) Basophils % 2 % (0-3) Platelet Estimate Adequate (ADEQUATE) Erythrocyte Sedimentation Rate 30 (0-15) Sodium Level 137 mmol/L (136-145) Potassium Level 5.3 mmol/L (3.5-5.1) Chloride Level 105 mmol/L (98-107) Carbon Dioxide Level 27 mmol/L (21-32) Anion Gap 5 (6-14) Blood Urea Nitrogen 17 mg/dL (8-26) Creatinine 1.2 mg/dL (0.7-1.3) Estimated GFR (Cockcroft-Gault) 58.9 BUN/Creatinine Ratio 14 (6-20) Glucose Level 87 mg/dL (70-99) Calcium Level 8.7 mg/dL (8.5-10.1) Total Bilirubin 0.6 mg/dL (0.2-1.0) Aspartate Amino Transf (AST/SGOT) 40 U/L (15-37) Alanine Aminotransferase (ALT/SGPT) 16 U/L (16-63) Alkaline Phosphatase 110 U/L (46-116) Creatine Kinase 30 U/L (39-308) Total Protein 6.7 g/dL (6.4-8.2) Albumin 2.4 g/dL (3.4-5.0) Albumin/Globulin Ratio 0.6 (1.0-1.7) Objective Assessment Leukocytosis, etiology unclear Recent Retroperitoneal bleed s/p embolization Recent Respiratory failure CVA Dysphagia Plan Plan of Care zosyn and po vanc check c diff check ct abd and pelvis u/a, cxr WILFRID AGUILAR MD May 14, 2017 13:57
[2017-05-14] MEDS: IV NORMAL SALINE 1000ML BAG 1,000 ML IV SCH ×2 (14:24→23:46)
[2017-05-14] MEDS: TAMSULOSIN 0.4 MG CAP.ER.24H. PO SCH (14:24)
[2017-05-14] MEDS: FERROUS SULFATE 325 MG TABLET. PO SCH (14:24)
[2017-05-14] MEDS: FAMOTIDINE 20 MG TABLET. PO SCH (14:24)
[2017-05-14] MEDS: DOCUSATE SODIUM 100 MG CAPSULE. PO SCH (14:24)
[2017-05-14] MEDS: FINASTERIDE 5 MG TABLET. PO SCH (14:24)
--- NOTE | 2017-05-14 14:37 | PDOC1 ---
History and Physical Date of Admission Date of Admission DATE: 05/14/17 TIME: 14:28 Identification/Chief Complaint Chief Complaint leukocytosis, weakness Problems: Source Source: Caregiver, Chart review, Patient History of Present Illness History of Present Illness Direct admit from [facility]. Dr. Rucker wanted transferred for increased white count. Elevated white count to 38 today, pt had prev. been seen by ID there, had started on Keflex a few days ago, but did vomit,. PT feels well, complains of dysphagia diet, has some left left weakness after CVA, no new back pain, no bleeding, has been doing well with therapy He was critically ill here 04/02 to 04/11 w/ Retroperitoneal bleed: S/P microcoil embolization of right iliolumbar artery: then sepsis and respiratory failure he then had an acute CVA at [facility], and aspirin started, but was off coumadin for Afib, might never have restarted due to significant bleed Past Medical History Cardiovascular: AFIB, CAD, Hyperlipidemia, Other Pulmonary: COPD, Other CENTRAL NERVOUS SYSTEM: CVA GI: Diverticulosis, Other Heme/Onc: Other Hepatobiliary: No pertinent hx Musculoskeletal: Osteoarthritis Rheumatologic: No pertinent hx Renal/: No pertinent hx, Benign prostatic enlarg. Endocrine: Hypothyroidism Past Surgical History Past Surgical History: Pacemaker, Arthroscopy, Cataract Removal, Other Family History Family History: Cancer Social History Smoke: No ALCOHOL: none Drugs: None Current Medications Current Medications Current Medications Iohexol (Omnipaque 240 Mg/ml) 30 ml 1X ONCE PO Last administered on 05/14/17t 12:33; Start 05/14/17 at 11:45; Stop 05/14/17 at 11:46; Status DC Iohexol (Omnipaque 300 Mg/ml) 75 ml 1X ONCE IV Last administered on 05/14/17t 12:33; Start 05/14/17 at 11:45; Stop 05/14/17 at 11:46; Status DC Info (Do NOT chart on this entry -- for MONITORING) 1 each PRN DAILY PRN MC SEE COMMENTS; Start 05/14/17 at 11:45; Stop 05/16/17 at 11:44 Bisacodyl (Dulcolax Tab) 10 mg PRN DAILY PRN PO CONSTIPATION; Start 05/14/17 at 12:00 Budesonide (Pulmicort) 0.5 mg RTBID NEB ; Start 05/14/17 at 20:00 Docusate Sodium (Colace) 100 mg DAILY PO Last administered on 05/14/17 14:24; Start 05/14/17 at 13:00 Famotidine (Pepcid) 20 mg DAILY PO Last administered on 05/14/17 14:24; Start 05/14/17 at 13:00 Finasteride (Proscar) 5 mg DAILY PO ; Start 05/15/17 at 09:00; Status UNV Finasteride (Proscar) 5 mg DAILY PO Last administered on 05/14/17 14:24; Start 05/14/17 at 13:00 Albuterol/ Ipratropium (Duoneb) 3 ml RTBID NEB ; Start 05/14/17 at 20:00 Nitroglycerin (Nitrostat) 0.4 mg PRN QID PRN SL chest pain; Start 05/14/17 at 12:00 Piperacillin Sod/ Tazobactam Sod (Zosyn) 3.375 gm Q6HRS IV ; Start 05/14/17 at 12:00; Status UNV Tamsulosin HCl (Flomax) 0.8 mg DAILY PO Last administered on 05/14/17 14:24; Start 05/14/17 at 13:00 Trazodone HCl (Desyrel) 50 mg HS PO ; Start 05/14/17 at 21:00 Albuterol Sulfate (Ventolin Neb Soln) 2.5 mg PRN Q4HRS PRN NEB SHORTNESS OF BREATH; Start 05/14/17 at 12:30 Ascorbic Acid (Vitamin C) 500 mg BID PO ; Start 05/14/17 at 21:00 Atorvastatin Calcium (Lipitor) 80 mg QHS PO ; Start 05/14/17 at 21:00 Ferrous Sulfate (Feosol) 325 mg DAILYWBKFT PO Last administered on 05/14/17 14 :24; Start 05/14/17 at 13:00 Lactobacillus Acidophilus (Bacid, Camila-Bid) 1 tab BIDAC PO ; Start 05/14/17 at 16:30 Al Hydroxide/Mg Hydroxide (Mylanta Plus Xs) 30 ml Q3HRS PO ; Start 05/14/17 at 15:00 Magnesium Hydroxide (Milk Of Magnesia) 2,400 mg PRN DAILY PRN PO CONSTIPATION; Start 05/14/17 at 12:45 Ondansetron HCl (Zofran Odt) 4 mg PRN Q6HRS PRN PO NAUSEA/VOMITING; Start 05/14 at 12:45 Piperacillin Sod/ Tazobactam Sod 3.375 gm/Sodium Chloride 50 ml @ 100 mls/hr Q6HRS IV ; Start 05/14/17 at 18:00 Vancomycin HCl 125 mg [id number] PO ; Start 05/14/17 at 17:00 Sodium Chloride 1,000 ml @ 100 mls/hr Q10H IV Last administered on 05/14/17t 14:24; Start 05/14/17 at 14:00 Active Scripts Active Reported Zosyn 3.375 Gram Vial (Piperacillin Sodium/Tazobactam) 3.375 Gm Vial 3.375 Gm IV Q6HRS Zofran (Ondansetron Hcl) 4 Mg Tablet 4 Mg PO Q6HRS PRN Trazodone Hcl 50 Mg Tablet 50 Mg PO HS Duoneb 0.5-3(2.5) Mg/3 Ml (Albuterol/Ipratropium) 3 Ml Ampul.neb 3 Ml NEB BID Diphenhydramine Hcl 50 Mg Capsule 25 Mg PO Q6HRS Vitamin C (Ascorbic Acid) 500 Mg Capsule.er 500 Mg PO BID Acidophilus (Lactobacillus Acidophilus) 1 Each Capsule 1 Cap PO BIDAC Proscar (Finasteride) 5 Mg Tablet 5 Mg PO DAILY Pulmicort (Budesonide) 0.5 Mg/2 Ml Ampul.neb 0.5 Mg IH BID Proair Hfa Inhaler (Albuterol Sulfate) 8.5 Gm Hfa.aer.ad 2 Puff INH PRN Q4HRS PRN Dulcolax (Bisacodyl) 5 Mg Tablet.dr 10 Mg PO PRN DAILY PRN Milk Of Magnesia (Magnesium Hydroxide) 2,400 Mg/10 Ml Oral.susp 2,400 Mg PO PRN PRN Mintox Plus Tablet Chewable (Mag Hydrox/Al Hydrox/Simeth) 1 Each Tab.chew 1 Each PO Q3HRS Docusate Sodium 100 Mg Capsule 100 Mg PO PRN Acetaminophen 500 Mg Tablet 650 Mg PO PRN Tamsulosin Hcl 0.4 Mg Cap.er.24h 0.8 Mg PO DAILY Atorvastatin Calcium 80 Mg Tablet 80 Mg PO HS Ferrous Sulfate 220 Mg/5 Ml Elixir 325 Mg PO DAILY Famotidine 20 Mg Tablet 20 Mg PO DAILY Augmentin 875-125 Tablet (Amoxicillin/Potassium Clav) 1 Each Tablet 1 Tab PO BID Proair Hfa (Albuterol Sulfate) 8.5 Gm Hfa.aer.ad 9 Gm IH NITROGLYCERIN SubLingual (Nitroglycerin) 0.4 Mg Tab.subl 1 Tab SL UD Coumadin (Warfarin Sodium) 3 Mg Tablet 1 Tab PO DAILY Proair Hfa Inhaler (Albuterol Sulfate) 8.5 Gm Hfa.aer.ad 1-2 Inh IH Q4-6 HRS PRN Lipitor (Atorvastatin Calcium) 80 Mg Tablet 80 Mg PO DAILY Allergies Allergies: Coded Allergies: amiodarone (Verified Allergy, Intermediate, 01/04/17) fluticasone (Verified Allergy, Intermediate, MAKES SORES, 03/22/14) montelukast (Verified Allergy, Intermediate, EAR PAIN, 01/04/17) salmeterol (Verified Allergy, Intermediate, MAKES SORES, 03/22/14) Sulfa (Sulfonamide Antibiotics) (Verified Allergy, Mild, "MAKES SORES", 03/22/14) budesonide (Verified Allergy, Mild, RASH, 03/22/14) levofloxacin (Verified Adverse Reaction, Severe, RUPTURE OF ACHILLES TENDON, 04/08/17) ROS General: YES: Other, No: Chills, Night Sweats, Fatigue, Malaise, Appetite PSYCHOLOGICAL ROS: No: Anxiety, Behavioral Disorder, Concentration difficultie , Decreased libido, Depression, Disorientation, Hallucinations, Hostility, Irritablity, Memory difficulties, Mood Swings, Obsessive thoughts, Physical abuse, Sexual abuse, Sleep disturbances, Suicidal ideation, Other Eyes: No Blurry vision, No Decreased vision, No Double vision, No Dry eyes, No Excessive tearing, No Eye Pain, No Itchy Eyes, No Loss of vision, No Photophobia , No Scotomata, No Uses contacts, No Uses glasses, No Other HEENT: No: Heacaches, Visual Changes, Hearing change, Nasal congestion, Nasal discharge, Oral lesions, Sinus pain, Sore Throat, Epistaxis, Sneezing, Snoring, Tinnitus, Vertigo, Vocal changes, Other Respiratory: No: Cough, Hemoptysis, Orthopnea, Pleuritic Pain, Shortness of breath, SOB with excertion, Sputum Changes, Stridor, Tachypnea, Wheezing, Other Cardiovascular: No Chest Pain, No Palpitations, No Orthopnea, No Paroxysmal Noc. Dyspnea, No Edema, No Lt Headedness, No Other Gastrointestinal: No Nausea, No Vomiting, No Abdominal Pain, No Diarrhea, No Constipation, No Melena, No Hematochezia, No Other Genitourinary: No Dysuria, No Frequency, No Incontinence, No Hematuria, No Retention, No Discharge, No Urgency, No Pain, No Flank Pain, No Other, No , No , No , No , No , No , No Musculoskeletal: No Gait Disturbance, No Joint Pain, No Joint Stiffness, No Joint Swelling, No Muscle Pain, No Muscular Weakness, No Pain In:, No Swelling In:, No Other Neurological: No Behavorial Changes, No Bowel/Bladder ControlChng, No Confusion , No Dizziness, No Gait Disturbance, No Headaches, No Impaired Coord/balance, No Memory Loss, No Numbness/Tingling, No Seizures, No Speech Problems, No Tremors, No Visual Changes, No Weakness, No Other Skin: No Dry Skin, No Eczema, No Hair Changes, No Lumps, No Mole Changes, No Mottling, No Nail Changes, No Pruritus, No Rash, No Skin Lesion Changes, No Other, No Acne Physical Exam General: Alert, Oriented X3, Cooperative, No acute distress HEENT: EOMI, Mucous membr. moist/pink Lungs: Normal air movement Heart: no gallops, no murmurs Abdomen: Normal bowel sounds, No tenderness Rectal Exam: not examined, deferred Extremities: No clubbing, No edema Skin: No rashes, No significant lesion Neuro: Normal speech, Normal tone, Sensation intact Psych/Mental Status: Mental status NL, Mood NL Vitals Vitals Vital Signs Date Time Temp Pulse Resp B/P (MAP) Pulse Ox O2 Delivery O2 Flow Rate FiO2 05/14/17 10:21 Room Air Labs Labs Laboratory Tests Test 05/14/17 11:40 White Blood Count 36.2 x10^3/uL (4.0-11.0) Red Blood Count 3.95 x10^6/uL (4.30-5.70) Hemoglobin 11.3 g/dL (13.0-17.5) Hematocrit 36.0 % (39.0-53.0) Mean Corpuscular Volume 91 fL (79-100) Mean Corpuscular Hemoglobin 29 pg (25-35) Mean Corpuscular Hemoglobin Concent 31 g/dL (31-37) Red Cell Distribution Width 19.1 % (11.5-14.5) Platelet Count 187 x10^3/uL (140-400) Neutrophils (%) (Auto) 7 % (31-73) Lymphocytes (%) (Auto) 80 % (24-48) Monocytes (%) (Auto) 7 % (0-9) Eosinophils (%) (Auto) 5 % (0-3) Basophils (%) (Auto) 0 % (0-3) Neutrophils # (Auto) 2.6 x10^3uL (1.8-7.7) Lymphocytes # (Auto) 29.1 x10^3/uL (1.0-4.8) Monocytes # (Auto) 2.7 x10^3/uL (0.0-1.1) Eosinophils # (Auto) 1.9 x10^3/uL (0.0-0.7) Basophils # (Auto) 0.1 x10^3/uL (0.0-0.2) Segmented Neutrophils % 16 % (35-66) Band Neutrophils % % (0-9) Lymphocytes % 72 % (24-48) Monocytes % 6 % (0-10) Eosinophils % 4 % (0-5) Basophils % 2 % (0-3) Platelet Estimate Adequate (ADEQUATE) Erythrocyte Sedimentation Rate 30 (0-15) Sodium Level 137 mmol/L (136-145) Potassium Level 5.3 mmol/L (3.5-5.1) Chloride Level 105 mmol/L (98-107) Carbon Dioxide Level 27 mmol/L (21-32) Anion Gap 5 (6-14) Blood Urea Nitrogen 17 mg/dL (8-26) Creatinine 1.2 mg/dL (0.7-1.3) Estimated GFR (Cockcroft-Gault) 58.9 BUN/Creatinine Ratio 14 (6-20) Glucose Level 87 mg/dL (70-99) Calcium Level 8.7 mg/dL (8.5-10.1) Total Bilirubin 0.6 mg/dL (0.2-1.0) Aspartate Amino Transf (AST/SGOT) 40 U/L (15-37) Alanine Aminotransferase (ALT/SGPT) 16 U/L (16-63) Alkaline Phosphatase 110 U/L (46-116) Creatine Kinase 30 U/L (39-308) Total Protein 6.7 g/dL (6.4-8.2) Albumin 2.4 g/dL (3.4-5.0) Albumin/Globulin Ratio 0.6 (1.0-1.7) Laboratory Tests Test 05/14/17 11:40 White Blood Count 36.2 x10^3/uL (4.0-11.0) Red Blood Count 3.95 x10^6/uL (4.30-5.70) Hemoglobin 11.3 g/dL (13.0-17.5) Hematocrit 36.0 % (39.0-53.0) Mean Corpuscular Volume 91 fL (79-100) Mean Corpuscular Hemoglobin 29 pg (25-35) Mean Corpuscular Hemoglobin Concent 31 g/dL (31-37) Red Cell Distribution Width 19.1 % (11.5-14.5) Platelet Count 187 x10^3/uL (140-400) Neutrophils (%) (Auto) 7 % (31-73) Lymphocytes (%) (Auto) 80 % (24-48) Monocytes (%) (Auto) 7 % (0-9) Eosinophils (%) (Auto) 5 % (0-3) Basophils (%) (Auto) 0 % (0-3) Neutrophils # (Auto) 2.6 x10^3uL (1.8-7.7) Lymphocytes # (Auto) 29.1 x10^3/uL (1.0-4.8) Monocytes # (Auto) 2.7 x10^3/uL (0.0-1.1) Eosinophils # (Auto) 1.9 x10^3/uL (0.0-0.7) Basophils # (Auto) 0.1 x10^3/uL (0.0-0.2) Segmented Neutrophils % 16 % (35-66) Band Neutrophils % % (0-9) Lymphocytes % 72 % (24-48) Monocytes % 6 % (0-10) Eosinophils % 4 % (0-5) Basophils % 2 % (0-3) Platelet Estimate Adequate (ADEQUATE) Erythrocyte Sedimentation Rate 30 (0-15) Sodium Level 137 mmol/L (136-145) Potassium Level 5.3 mmol/L (3.5-5.1) Chloride Level 105 mmol/L (98-107) Carbon Dioxide Level 27 mmol/L (21-32) Anion Gap 5 (6-14) Blood Urea Nitrogen 17 mg/dL (8-26) Creatinine 1.2 mg/dL (0.7-1.3) Estimated GFR (Cockcroft-Gault) 58.9 BUN/Creatinine Ratio 14 (6-20) Glucose Level 87 mg/dL (70-99) Calcium Level 8.7 mg/dL (8.5-10.1) Total Bilirubin 0.6 mg/dL (0.2-1.0) Aspartate Amino Transf (AST/SGOT) 40 U/L (15-37) Alanine Aminotransferase (ALT/SGPT) 16 U/L (16-63) Alkaline Phosphatase 110 U/L (46-116) Creatine Kinase 30 U/L (39-308) Total Protein 6.7 g/dL (6.4-8.2) Albumin 2.4 g/dL (3.4-5.0) Albumin/Globulin Ratio 0.6 (1.0-1.7) VTE Prophylaxis Ordered VTE Prophylaxis Devices: No VTE Pharmacological Prophylaxi: Contraindicated Assessment/Plan Assessment/Plan leukocytosis, NOS vomiting a few days ago, maybe due to Keflex on and empty stomach no clear other source, fever today, check blood cx, + SIRS criteria mod severe malnutrition, serum alb 2.4 weaknes and dysphagia s/p CVA at [facility] last month recent Retroperitoneal bleed last month: S/P microcoil embolization of right iliolumbar artery: while on coumadin w/coagulopathy afib, chronic w. mild diastolic CHF anemia of blood loss Chronic lumbago, hypothyroidism CKD 2-3 COPD stable BPH, large dose flomax admit ID and Physiatry consult BECKI PALM MD May 14, 2017 14:37
[2017-05-14 14:58] LABS: BILIRUBIN,URINE NEGATIVE (NEG); GLUCOSE,URINE NEGATIVE (NEG); NITRITE,URINE NEGATIVE (NEG); PROTEIN,URINE NEGATIVE (NEG-TRACE); UROBILINOGEN,URINE 0.2 mg/dL (0.2 mg/dL)
[2017-05-14 15:00] VITALS: BP 120/79
[2017-05-14] MEDS: MAG HYDROX/ALUMINUM HYD/SIMETH 30 ML ORAL.SUSP PO SCH ×4 (15:00→23:45)
[2017-05-14 15:11] LABS: BACTERIA,URINE FEW /HPF (0-FEW); RBC,URINE 0 /HPF (0-2); SQUAMOUS EPITHELIAL CELL,UR MANY /LPF
--- NOTE | 2017-05-14 15:51 | RAD ---
CT abdomen and pelvis with contrast 05/14/2017 Clinical indication: Leukocytosis. Comparison: CT 04/23/2017. Technique: CT helical acquisition of the abdomen and pelvis was obtained following uneventful intravenous administration of 60 mL Omnipaque 300. Coronal and sagittal reformations were obtained. PQRS Compliance Statement: One or more of the following individualized dose reduction techniques were utilized for this examination: 1. Automated exposure control 2. Adjustment of the mA and/or kV according to patient size 3. Use of iterative reconstruction technique Abdomen and pelvis: Heart size is normal with stable small pericardial effusion. Partial visualization of transvenous pacer leads in the right atrium and right ventricle. Incidental note is made of lipomatous hypertrophy of the cardiac interatrial septum. Stable moderate right and small left pleural effusions with adjacent atelectasis. Liver normal in morphology with homogeneous enhancement no suspicious parenchymal lesion. Gallbladder normal in size and configuration. No intra or extra hepatic biliary ductal dilatation. Splenomegaly measuring 15.8 cm. Adrenal glands and pancreas are within normal limits. There is a 2 mm nonobstructive calculus in the superior pole the right kidney. No collecting system dilatation. There is symmetric bilateral retroperitoneal lipomatosis. There has been interval improvement in overall size of right retroperitoneal hemorrhage with evolution of the blood products measuring approximately 18.4 x 6.9 x 8.9 cm, previously 21.6 x 9.2 x 10.9 cm when measured in a similar fashion there is partial loculated multilobulated components of the fluid in the lower right retroperitoneum immediately anterior to the iliopsoas and along the right pelvic sidewall measuring 8.8 x 5.5 cm (series 2/61) more superior component immediately lateral to the lower IVC measures 5.4 x 3.1 cm (series 2/image 46) and is likely connected to the more inferior component. There is no internal gas within the fluid collections. There is asymmetric enlargement of the right iliopsoas mass which likely relates to intramuscular hemorrhage. With adjacent embolization material. Small and large bowel loops are normal in caliber without obstruction. Mild distal colonic diverticulosis without evidence for diverticulitis. There are mildly prominent upper retroperitoneal lymph nodes. Mild prostate enlargement which indents the base of the bladder. There has been development of mild asymmetric thickening of the anterior urinary bladder wall. There are multiple stable mildly prominent right iliac lymph nodes, may be reactive. There is a stable chronic moderate anterior superior compression deformity at L1 with minimal bony retropulsion. Impression: 1. Improvement in overall size of right retroperitoneal blood products with development of multilobulated partial loculation and right retroperitoneal fluid without internal gas. Findings may represent evolution of blood products, however superimposed infection cannot be excluded. 2. Development of asymmetric anterior urinary bladder wall thickening which may represent cystitis. Correlation with urinalysis is recommended. 3. Mild prostate enlargement. Correlation with PSA.
[2017-05-14] MEDS: LIDOCAINE (700MG/PATCH) PATCH. TD SCH (16:45)
[2017-05-14] MEDS: PIPERACILLIN/TAZOBACTAM 3.375 GM in IV NORMAL SALINE 50ML 50 ML IV SCH ×2 (16:45→21:55)
[2017-05-14] MEDS: LACTOBACILLUS ACIDOPH & BULGAR 1 TABLET. PO SCH (16:45)
[2017-05-14] MEDS: VANCOMYCIN 125 MG/2.5 ML ORAL SOLUTION. PO SCH ×2 (16:46→21:50)
[2017-05-14] MEDS ORDERED: ACETAMINOPHEN 500 MG TABLET PO PRN (17:15)
[2017-05-14 19:00] VITALS: BP 113/75
[2017-05-14] MEDS: BUDESONIDE 0.5 MG/2 ML NEBU. NEB SCH (19:13)
[2017-05-14] MEDS: IPRATRPIUM/ALBUTEROL 0.5/2.5MG 3 ML NEBU. NEB SCH (19:13)
[2017-05-14] MEDS: traZODone 50 MG TABLET. PO SCH (21:48)
[2017-05-14] MEDS: ASCORBIC ACID 500 MG TABLET PO SCH (21:49)
[2017-05-14] MEDS: ENOXAPARIN 40 MG/0.4 ML SYRINGE. SQ SCH (21:49)
[2017-05-14] MEDS: ATORVASTATIN CALCIUM 40 MG TABLET. PO SCH (21:49)
[2017-05-14 22:46] VITALS: BP 114/66
--- NOTE | 2017-05-14 23:45 | ACF ---
Admission Forms Criteria GENERAL ADMISSION CRITERIA (Place 'X' for any and all applicable criteria): Admission is indicated for ANY ONE of the following: [ ]I. Hemodynamic instability as indicated by ANY ONE of the following(1)(2) (3)(4)(5): [ ]a) Vital sign abnormality not readily corrected by appropriate treatment within 12 to 24 hours indicated by ANY ONE of the following: [ ]i) Hypotension [ ]ii) Symptomatic Tachycardia unresponsive to treatment (eg , analgesia, fluids, sedation as indicated) [ ]iii) Orthostatic vital sign changes unresponsive to treatment (eg, fluids) [ ]b) Vital sign abnormality that is severe indicated by ANY ONE of the following: [ ]i) Inadequate perfusion indicated by ANY ONE of the following: [ ]1) Lactic acidosis (greater than 2 mmol/L) [ ]2) New abnormal capillary refill (greater than 3 seconds) [ ]3) Other metabolic acidosis (arterial pH less than 7.35) not otherwise explained [ ]4) Reduced urine output [ ]5) Altered mental status [ ]6) Myocardial Ischemia [ ]v) Mean arterial pressure[A] less than 60 mm Hg [ ]vi) Mean arterial pressure[A] less than 70 mm Hg after 30 minutes of appropriate treatment (eg, fluid resuscitation) [ ]vii) IV inotropic or vasopressor medication required to maintain adequate blood pressure or perfusion [ ]viii) Sustained heart rate greater than 120 beats per minute in adult or child 6 years or older[B]] [ ]II. Hypertension requiring inpatient treatment as indicated by ANY ONE of the following(6)(7)(8): [ ]a) SBP greater than 220 mm Hg or DBP greater than 120 mm Hg despite treatment [ ]b) SBP greater than 140 mm Hg or DBP greater than 100 mm Hg with evidence of acute end organ damage as indicated by ANY ONE of the following: [ ]i) Encephalopathy [ ]ii) Acute renal failure as indicated by new onset of ANY ONE of the following(9)(10)(11)(12)(13): [ ]1) A 3-fold rise in serum creatinine from baseline [ ]2) Serum creatinine greater than 4 mg/dL ( 354 micromoles/L) with acute rise greater than 0.5 mg/dL (44.2 micromoles/L) [ ]3) Reduction of more than 75% in estimated glomerular filtration rate from baseline [ ]4) Estimated glomerular filtration rate less than 35 mL/min/1.73m2 (0.59 mL/sec/1.73m2) in child up to 18 years of age [ ]5) Cessation of urine output indicated by ALL of the following: [ ]A. Adequate volume status [ ]B. Inadequate urine output as indicated by ANY ONE of the following: [ ]a. Urine output less than 0.3 mL/kg/hr for 24 hours [ ]b. Anuria (urine output less than 0.1 mL/kg/hr) for 12 hours [ ]iii) Aortic dissection [ ]iv) Myocardial ischemia [ ]v) Left ventricular heart failure [ ]vi) Retinal hemorrhage [ ]vii) Other significant finding [ ]c) Hypertension in child requiring inpatient treatment as indicated by ALL of the following(14)(15)(16): [ ]i) Outpatient treatment not effective, not available, or not appropriate [ ]ii) SBP or DBP greater than 95th percentile for age [ ]iii) Evidence of acute end organ damage as indicated by ANY ONE of the following: [ ]1) Altered mental status [ ]2) Acute renal failure as indicated by new onset of ANY ONE of the following(9)(10)(11)(12)(13): [ ]A. A 3-fold rise in serum creatinine from baseline [ ]B. Serum creatinine greater than 4 mg/dL (354 micromoles/L) with acute rise greater than 0.5 mg/dL (44.2 micromoles/L) [ ]C. Reduction of more than 75% in estimated glomerular filtration rate from baseline [ ]D. Estimated glomerular filtration rate less than 35 mL/min/1.73m2 (0.59 mL/sec/1.73m2)in child up to 18 years of age [ ]E. Cessation of urine output indicated by ALL of the following: [ ]a. Adequate volume status [ ]b. Inadequate urine output as indicated by ANY ONE of the following: [ ]1) Urine output less than 0.3 mL/kg/hr for 24 hours [ ]2) Anuria (urine output less than 0.1 mL/kg/hr) for 12 hours [ ]3) Severe headache [ ]4) Visual disturbance [ ]5) Retinal hemorrhage [ ]6) Other significant finding [ ]III. Acute cardiac or peripheral ischemia as indicated by ANY ONE of the following: [ ]a) Acute coronary syndrome(17)(18) [ ]b) Acute peripheral ischemia (eg, pulseless, cool, mottled, or cyanotic extremity)(19) [ ]IV. Cardiac arrhythmias or findings of immediate concern indicated by ANY ONE of the following(20)(21): [ ]a) Heart rhythms that are inherently dangerous or unstable indicated by ANY ONE of the following(22)(23)(24): [ ]i) Resuscitated ventricular fibrillation or cardiac arrest [ ]ii) Ventricular escape rhythm [ ]iii) Sustained ventricular tachycardia (30 seconds or more of ventricular rhythm at greater than 100 beats per minute) [ ]iv) Nonsustained ventricular tachycardia and ANY ONE of the following: [ ]1) Suspected cardiac ischemia as cause or consequence of ventricular tachycardia [ ]2) In setting of acute myocarditis [ ]b) Unstable cardiac conduction defects indicated by ANY ONE of the following(24)(25)(26): [ ]i) Type II second-degree atrioventricular block [ ]ii) Third-degree atrioventricular block [ ]iii) New-onset left bundle branch block with suspected myocardial ischemia [ ]c) Any heart rhythm and ANY ONE of the following(22)(23)(27)(28)( 29): [ ] i) Continuous long-term ECG monitoring needed (eg, initiation of drug requiring monitoring for more than 24 hours) [ ] ii) Patient has automatic implanted cardioverter defibrillator that is repeatedly firing, malfunctioning, or in need of immediate adjustment of settings beyond the scope of ambulatory or observation care. [ ]d) Heart rhythms of concern due to ANY ONE of the following: [ ]i) Hypotension [ ]ii) Respiratory distress [ ]iii) Association with other significant symptoms (eg, bradycardia with syncope or ongoing dizziness, supraventricular tachycardia with chest pain) (27)(28) (30) [ ] V. Severe heart failure as indicated by ANY ONE of the following ( 31)(32): [ ]a) Respiratory distress [ ]b) Hypotension [ ]c) Anasarca (refractory to outpatient therapy) [ ]d) Cardiac arrhythmias of immediate concern [ ]e) Myocardial ischemia [ ]. Respiratory abnormalities, including ANY ONE of the following(33)(34) (35)(36): [ ]a) Respiratory rate greater than 30 breaths per minute unresponsive to treatment [A] [ ]b) New saturation of arterial oxygen less than 90% [ ]c) New partial pressure of carbon dioxide greater than 44 mm Hg ( 5.9 kPa) [ ]d) Supplemental oxygen or respiratory treatments needed that are new or not performable at other levels of care [ ]e) New-onset cyanosis [ ]f) Inability to protect airway [ ]g) Chronic lung disease with severe deterioration (not responsive to emergency and observation care treatment as appropriate) as indicated by ANY ONE of the following(34)(36 ): [ ]i) SaO2 5% below baseline in patient with chronic hypoxemia [ ]ii) New requirement for supplemental oxygen to keep SaO2 at baseline or acceptable level [ ]iii) Required supplemental oxygen performable only in acute inpatient setting [ ]iv) Severe airflow or ventilation abnormalities [ ]v) Previously mobile patient unable to walk between rooms [ ]vi Inability to eat or sleep due to dyspnea [ ]vii) Rapid rate of exacerbation onset [ ]viii) Altered mental status ]VII. Severe airflow or ventilation abnormalities (not responsive to emergency and observation care treatment as appropriate) as indicated by ANY ONE of the following(33)(34)(35)(37): [ ]a) PCO2 greater than 42 mm Hg (5.6 kPa) and pH less than 7.35 (new ) [ ]b) Documented PCO2 increased more than 5 mm Hg (0.7 kPa) from disease baseline [ ]c) Airflow measurements [B] less than 60% of previous best or predicted (eg, peak expiratory flow rate less than 300 L/minute) despite intensive emergent treatment [C] [ ]d) Required respiratory treatments that are performable only in acute inpatient setting [ ]VIII. Impending or actual respiratory arrest ( Also use Respiratory Failure GRG for severe respiratory disease and long-term mechanical ventilation patients) [ ]IX. Neurologic abnormalities, including ANY ONE of the following: [ ]a) New findings that suggest ANY ONE of the following: [ ]i) [employer] infection(38) [ ]ii) Cerebral bleeding, ischemia, or vasospasm(39)(40) [ ]iii) Increased intracranial pressure, hydrocephalus, or cerebral edema(41)(42)(43) [ ]iv) Spinal cord injury(44) [ ]b) Uncontrolled seizures(45) [ ]c) New-onset coma (eg, Loc coma scale score less than 9) or unexplained abnormal mental status (eg, Loc coma scale score less than 14) [D](41)(46)(47) [ ]X. New-onset severe neurologic findings requiring inpatient care; examples include(42)(48)(49): [ ]a) Papilledema [ ]b) Cerebral edema [ ]c) Mass effect on CT scan [ ]XI. Suspected acute intra-abdominal process with peritoneal signs, abdominal mass, or similar findings (50)(51)(52) [ ]XII. Severe physiologic disorder remaining after emergency or observation level care (as appropriate) as indicated by ANY ONE of the following (53): [ ]a) Significant dehydration [ ]b) Diabetic ketoacidosis [ ]c) Hyperglycemic hyperosmolar state (eg, osmolality greater than 320 mOsm/kg (mmol/kg) [ ]d) Hypoglycemia [ ]e) Other (new) acid-base disorder with pH less than 7.35 or greater than 7.5(54) [ ]f) Thyroid storm (55) [ ]g) Myxedema coma (55) [ ]XIII. Abdominal abnormalities with ANY ONE of the following(56)(57): [ ]a) Absent bowel sounds with complete ileus [ ]b) Signs of intestinal obstruction or peritonitis [E] [ ]c) Nausea and vomiting that cannot be controlled with outpatient or observation care [ ]XIV. Acute renal failure as indicated by new onset of ANY ONE of the following(9)(10)(11)(12)(13): [ ]a) A 3-fold rise in serum creatinine from baseline [ ]b) Serum creatinine greater than 4 mg/dL (354 micromoles/L) with acute rise greater than 0.5 mg/dL (44.2 micromoles/L) [ ]c) Reduction of more than 75% in estimated glomerular filtration rate from baseline [ ]d) Estimated glomerular filtration rate less than 35 mL/min/ 1.73m2 (0.59 mL/sec/1.73m2) in child up to 18 years of age [ ]e) Cessation of urine output indicated by ALL of the following: [ ]i) Adequate volume status [ ]ii) Inadequate urine output as indicated by ANY ONE of the following: [ ]1) Urine output less than 0.3 mL/kg/hr for 24 hours [ ]2) Anuria (urine output less than 0.1 mL/kg/hr) for 12 hours [ ]XV. Significant uremic complications as indicated by ANY ONE of the following(58)(59)(60): [ ]a) Outpatient therapy is ineffective or not feasible for ANY ONE of the following: [ ]i) Severe heart failure [ ]ii) Severehypertension [ ]iii) Pleural effusion [ ]iv) Pericarditis or pericardial effusion [ ]b) Cardiac arrhythmias of immediate concern [ ]c) Intractable nausea or vomiting [ ]d) Recurrent seizures [ ]e) Encephalopathy [ ]f) Bleeding abnormalities (eg, platelet dysfunction) with active (eg, gastrointestinal) bleeding [ ]g) Dialysis indicated before long-term access or ambulatory arrangements can be made [ ]h) Significant metabolic or electrolyte abnormalities (eg, severe acidosis or hyperkalemia) [ ]XVI. High fever or other high-risk infection situation as indicated by ANY ONE of the following(61)(62)(63)(64): [ ]a) Outpatient and observation care antimicrobial treatment unavailable, not effective, or not appropriate [ ]b) Documented bacteremia [ ]c) Temperature greater than 40.5 degrees C (104.9 degrees F) ( oral) [ ]d) Temperature greater than 39.5 degrees C (103.1 degrees F) ( oral) or less than 36 degrees C (96.8 degrees F) (rectal) that does not respond to e treatment and observation care [ ] XVII. Temperature less than 95 degrees F (35 degrees C)(rectal)(65) [ ] XVIII. Severe nutritional abnormalities as indicated by ALL of the following (66)(67): [ ]a) Inability to tolerate or establish sufficient oral or other enteral nutrition in outpatient setting [ ]b) Parenteral nutrition regimen need that must be implemented on inpatient basis [ ] XIX. Severe electrolyte abnormalities indicated by ALL of the following(68) (69)(70): [ ]a) Electrolytes and associated findings are not as expected for patient baseline or acceptable treatment effects. [ ]b) Severe abnormalities indicated by ANY ONE of the following: [ ]i) Sodium less than 130 mEq/L (mmol/L) (new) [ ]ii)Sodium less than 135 mEq/L (mmol/L) with ANY ONE of the following: [ ]1) Uncorrectable (to near normal or chronic baseline) after trial of outpatient and emergency treatment [ ]2) Altered mental status [ ]3) Seizures [ ]4) Severe medical etiology requiring inpatient management (eg, heart failure, hypovolemia) [ ]iii) Sodium greater than 155 mEq/L (mmol/L) [ ]iv) Sodium greater than 150 mEq/L (mmol/L) with ANY ONE of the following: [ ]1) Uncorrectable (to near normal or chronic baseline) with outpatient and emergency treatment [ ]2) Altered mental status [ ]3) Seizures [ ]4) Severe medical etiology (eg, hypovolemia, diabetes insipidus) [ ]v) Potassium less than 2.5 mEq/L (mmol/L) despite outpatient and emergency treatment [ ]vi) Potassium less than 3 mEq/L (mmol/L) with ANY ONE of the following: [ ]1) Weakness [ ]2) Cardiac abnormality (eg, arrhythmia, conduction disturbance) [ ]3) Cardiac ischemia [ ]4) Ileus [ ]5) Ongoing medical cause requiring inpatient management (eg, acute renal wasting or SIADH) [ ]6) Other severe symptoms [ ]vii) Potassium greater than 6.5 mEq/L (mmol/L) [ ]viii) Potassium greater than 5 mEq/L (mmol/L) with ANY ONE of the following: [ ]1) Uncorrectable (to near normal or chronic baseline) with outpatient and emergency treatment [ ]2) Severe ECG findings [F] [ ]3) Acute worsening of renal failure (creatinine greater than 2.5 mg/dL (221 micromoles/L) or significant elevation for age and size) [ ]4) Severe weakness [ ]5) Severe medical etiology (eg, hemolysis, infection, drug overdose) [ ]ix) Calcium less than 7 mg/dL (1.75 mmol/L) despite outpatient and emergency treatment (72) [ ]x) Calcium less than 8 mg/dL (2 mmol/L) with significant symptoms or findings; examples include(72): [ ]1) Altered mental status [ ]2) Muscle spasms [ ]3) Seizures [ ]4) Breathing difficulty [ ]5) Cardiac abnormality (eg, arrhythmia or conduction disturbance) [ ]xi) Calcium greater than 14 mg/dL (3.5 mmol/L)(72) [ ]xii) Calcium greater than 12 mg/dL (3 mmol/L) with ANY ONE of the following(72): [ ]1) Uncorrectable (to near normal or chronic baseline) with outpatient and emergency treatment [ ]2) Significant dehydration or hypovolemia as indicated by ALL of the following(70)(73)(74): [ ]A. Not resolved with initial treatments [ ]B. Clinically significant dehydration as indicated by ANY ONE of the following: [ ]a. Vomiting refractory to outpatient treatment (ie, precluding oral rehydration) [ ]b. Inability to drink [ ]c. Hypernatremia or other electrolyte abnormality unable to be corrected with outpatient and emergency treatment [ ]d. Failure to remain hydrated with outpatient therapy [ ]e. Reduced urine output [ ]f. Hypotension [ ]g. Serious cause for dehydration requiring acute hospitalization (eg, bowel obstruction, increased intracranial pressure, infectious cause) [ ]h. Child with ANY ONE of the following(75): [ ]1) Severe abdominal tenderness [ ]2) Adequate care not available at home [ ]3) Severe dehydration ( greater than 9% loss of body weight) [ ]4) Significant symptoms or findings; examples include: [ ]A. Altered mental status [ ]B. Cardiac abnormality (eg, arrhythmia, conduction disturbance) [ ]C. Malignant etiology requiring inpatient treatment [ ]xiii) Phosphorus less than 1 mg/dL (0.32 mmol/L) [ ]xiv) Phosphorus less than 1.5 mg/dL (0.48 mmol/L) with ANY ONE of the following: [ ]1) Patient unresponsive to outpatient and emergency treatment [ ]2) Significant symptoms or findings; examples include: [ ]A. Weakness [ ]B. Altered mental status [ ]C. Breathing difficulty [ ]D. Seizures [ ]E. Rhabdomyolysis [ ]xv) Phosphorus greater than 10 mg/dL (3.2 mmol/L) [ ]xvi) Phosphorus greater than 4.5 mg/dL (1.45 mmol/L) (new) with ANY ONE of the following: [ ]1) Severe medical etiology (eg, crush injury, acute renal failure) [ ]2) Associated hypocalcemia with significant findings; examples include: [ ]A. Neurologic symptoms [ ]B. Altered mental status [ ]C. Muscle spasms [ ]D. Seizures [ ]E. Breathing difficulty [ ]F. Cardiac abnormality (eg, arrhythmia, conduction disturbance) [ ]xvii) Magnesium less than 1 mg/dL (0.41 mmol/L) [ ]xviii) Magnesium less than 1.5 mg/dL (0.62 mmol/L) with ANY ONE of the following: [ ]1) Patient unresponsive to outpatient and emergency treatment [ ]2) Associated hypocalcemia with significant findings; examples include: [ ]A. Altered mental status [ ]B. Muscle spasms [ ]C. Seizures [ ]D. Breathing difficulty [ ]E. Cardiac abnormality (eg, arrhythmia , conduction disturbance) [ ]3) Associated hypokalemia (potassium less than 3 mEq/L (mmol/L)) with risk of arrhythmia [ ]xix) Magnesium greater than 4 mEq/L (2 mmol/L) [ ]xx) Magnesium greater than 2.5 mEq/L (1.25 mmol/L) with significant symptoms or findings; examples include: [ ]1) Weakness [ ]2) Altered mental status [ ]3) Cardiac abnormality (eg, arrhythmia, conduction disturbance) [ ]4) Breathing difficulty [ ]5) Severe medical etiology (eg, renal failure, hypovolemia) [ ]xxi) Uric acid greater than 20 mg/dL (1190 micromoles/L)(76) [ ]xxii) Uric acid greater than 8 mg/dL (476 micromoles/L) with significant symptoms or findings of tumor lysis syndrome; examples include(76): [ ]1) Creatinine greater than 1.5 times upper limit of normal [ ]2) Cardiac abnormality (eg, arrhythmia, conduction disturbance) [ ]3) Seizure [ ]XX. Acute blood loss causing significant abnormality as indicated by ANY ONE of the following(77)(78): [ ]a) Hemoglobin less than 10 g/dL (100 g/L) (not baseline) [ ]b) Hematocrit less than 30% (0.30) (not baseline) [ ]c) Repeat hematocrit decreased more than 2% (0.02) [ ]d) Uncontrolled bleeding [ ]XXI. Severe anemia indicated by ANY ONE of the following(78)(79): [ ]a) Altered mental status [ ]b) Chest pain [ ]c) Exertional dyspnea [ ]d) Syncope [ ]e) Other findings suggesting inadequate perfusion [ ]f) Treatment with transfusion or volume replacement is ineffective at resolving ANY ONE of the following [G]: [ ]i) Tachycardia for age [ ]ii) Orthostatic vital sign changes as indicated by ANY ONE of the following(80): [ ]1) Fall in SBP of 20 mm Hg or more 1 to 3 minutes after patient sits or stands from recumbent position [ ]2) Fall in DBP of 10 mm Hg or more 1 to 3 minutes after patient sits or stands from recumbent position [ ]XXII. High-risk low platelet count as indicated by ANY ONE of the following( 81)(82): [ ]a) Severe or life-threatening bleeding (eg, intracranial, major gastrointestinal, or extensive mucosal bleeding), with any reduced platelet count [ ]b) Platelet count less than 20,000/mm3 (20 x109/L) with any active bleeding [ ]c) Platelet count less than 10,000/mm3 (10 x109/L) with minor purpura or petechiae [ ]d) Platelet count less than 5000/mm3 (5 x109/L) [ ]e) Low platelet count with hemolytic anemia [ ]XXIII. Disseminated intravascular coagulation(77)(83) [ ]XXIV. Severe adverse drug or systemic toxin reaction requiring inpatient treatment; examples include(84)(85): [ ]a) Serotonin syndrome(86) [ ]b) Neuroleptic malignant syndrome(86) [ ]c) Cholinergic syndrome with severe symptoms (eg, bronchorrhea, weakness, mental status changes, seizures) [ ]d) Sympathetic syndrome with severe symptoms (eg, seizures, mental status changes, cardiac dysrhythmias) [ ]e) Anticholinergic syndrome [ ]XXV. Severe pain requiring acute inpatient management as indicated by ALL of the following (87)(88)(89): [ ]a) Continuous or frequent (eg, every 2 to 4 hours) parenteral analgesics required [H] [ ]b) Rapid improvement expected from treatment or acute intervention (eg, surgery, anesthesia procedure) [ ]XXVI.Severe behavioral health issues judged unmanageable at a lower level of care (eg, residential) in a patient who is ANY ONE of the following(91) [ ]a) Acutely suicidal [ ]b) A danger to self (eg, self-mutilating or suicidal behavior) [ ]c) A danger to others (eg, assaultive or homicidal behavior) [ ]d) Incapacitated because of grave disability (eg, inability to provide for self at lower level of care) (92) [X]XXVII. Inpatient monitoring needed; examples include(1)(3)(87)(93)(94)(95)(96 ): [X]a) Vital signs, neurologic signs, or vascular checks more frequently than every 4 hours [ ]b) Cardiac or respiratory monitoring beyond the scope (eg, over 24 hours) of observation care [ ]c) Pulmonary artery catheter monitoring [ ]d) Suspected compartment syndrome(97) (98) [ ]e) Cerebral bleeding, hydrocephalus, or vasospasm monitoring [ ]f) Increased intracranial pressure or cerebral edema monitoring [ ]g) monitoring [ ]XXVIII. Treatment requiring inpatient care; examples include: [ ]a) IV fluid to replace significant ongoing losses (greater than 3 L/m2 per day)(53) [ ]b) High concentration oxygen (greater than 40%)(33)(99)(100) [ ]c) Frequent respiratory therapy (more frequently than every 4 hours) to maintain airflow rates greater than 60% of baseline(33)(99)(100) [ ]d) Epidural analgesia(87) [ ]e) IV anticoagulation, vasoactive, or antiarrhythmic medication(19 )(23) [ ]f) Acute thrombolytics (generally require 24 hours of observation )(101)(102) [ ]XXIX. Emergency procedures needed; examples include: [ ]a) Emergency inpatient surgery [ ]b) Temporary pacemaker placement(103) [ ]c) Chest tube placement with active evacuation (eg, suction, drainage)(104) [ ]d) Emergent cardioversion(105) [ ]e) Emergent cardiac or vascular procedures (eg, cardiac catheterization, angioplasty) (17)(18) [ ]f) Emergent dialysis access placement and institution(10)(106) [ ]g) Emergent pericardiocentesis(107) [ ]h) Emergent plasmapheresis or leukapheresis(83) [ ]i) Emergent tracheostomy The original [employer] content created by [employer] has been revised. The portions of the content which have been revised are identified through the use of italic text or in bold, and [facility] has neither reviewed nor approved the modified material. All other unmodified content is copyright [employer]. Please see references footnoted in the original [employer] edition 2016 Admission Criteria Met?: Yes HUI LUNDBERG May 14, 2017 23:45
--- NOTE | 2017-05-15 02:23 | CONS ---
DATE OF CONSULTATION: 05/14/2017 REQUESTING PHYSICIAN: Dr. Ratliff. REASON FOR CONSULTATION: Leukocytosis. HISTORY OF PRESENT ILLNESS: This is a 76-year-old gentleman who [facility]. The patient was in the hospital here little over a month ago with his presentation that he came in with respiratory failure, intubation, retroperitoneal hemorrhage, acute renal failure. The patient required arteriogram and micrcoil embolization to control the bleeding of the right iliolumbar artery. The patient had Klebsiella pneumoniae in the sputum. The patient eventually was improved and transferred to [facility] and from there he went to [facility] as he was doing reasonably well. He was walking with support and his swallowing had improved and the patient started having white count elevation, first went up to 17, then from 17 to 20, to 29,000 and now today is 38,000. The patient was started on Zosyn by ____ yesterday and now he is here for further management. The patient denies any abdominal pain. Denies any diarrhea. Denies any nausea, vomiting. Denies any chest pain, shortness of breath. Denies any fever or chills. No urinary symptoms. In fact, he says he feels fine. The patient has not received any steroids that I can find. The patient has not received any injections and again no diarrhea. Family at the bedside and they also said he feels fine other than white count he had been progressing well with the rehabilitation. PAST MEDICAL HISTORY: Positive for this recent retroperitoneal bleed with embolization done. The patient also had a history of COPD, atrial fibrillation, benign prostatic hypertrophy, diverticulosis, obstructive sleep apnea, shoulder surgery done and knee surgery done in the past. SOCIAL HISTORY: Negative for smoking, alcohol, or illicit drug use. ALLERGIES: LISTED ALLERGIC TO LEVOFLOXACIN WITH CAUSING TENDON RUPTURE, SULFA CAUSES SORES IN THE MOUTH. REVIEW OF SYSTEMS: As per HPI, all other systems reviewed are negative. CURRENT MEDICATIONS: The patient is on Zosyn. PHYSICAL EXAMINATION: GENERAL: Alert and awake gentleman, not in distress. VITAL SIGNS: Stable, afebrile. HEENT: NAD. NECK: Supple, no JVP, no lymphadenopathy. LUNGS: Clear. HEART: S1, S2 regular. ABDOMEN: Benign. EXTREMITIES: No edema, cyanosis. SKIN: Unremarkable. NEUROLOGIC: The patient does move all the extremities. The only weakness he has from his stroke is right lower extremity. LABORATORY DATA: White count is 36,000, hemoglobin 11.3, platelets 187,000. BUN and creatinine is normal. Urinalysis not done yet. CT scan is pending of the abdomen and pelvis. IMPRESSION: 1. Leukocytosis, it is like significant leukemoid reaction classically we see with C. diff, although the patient denies any diarrhea. Also steroids can do it, which he does not have any. The patient has diverticulitis history and if he has diverticular perforation with abscess that can do this, although again he does not have any abdominal complaints. 2. Recent retroperitoneal bleed, status post coiling done. 3. Respiratory failure. 4. Cerebrovascular accident. 5. Dysphagia. RECOMMENDATIONS: I would continue Zosyn, just been started yesterday. Add p.o. vancomycin until we have any other evidence against it. For C. diff, supportive care. We will check the CT and continue to follow. Thank you very much, Dr. Ratliff for giving me the opportunity to participate in this patient's care. WILFRID AGUILAR MD DR: ARIANE/oz JOB#: [id number] / [id number]
[2017-05-15 02:33] VITALS: BP 117/61
[2017-05-15] MEDS: MAG HYDROX/ALUMINUM HYD/SIMETH 30 ML ORAL.SUSP PO SCH ×7 (03:00→20:20)
[2017-05-15 04:58] LABS: BASO # 0.1 x10^3/uL (0.0-0.2); BASO % 0 % (0-3); EOS % 4 % (0-3); HEMATOCRIT 32.8 % (39.0-53.0); HEMOGLOBIN 10.6 g/dL (13.0-17.5); LYMPH # 40.7 x10^3/uL (1.0-4.8); LYMPH % 85 % (24-48); MEAN CORPUSCULAR HEMOGLOBIN 29 pg (25-35); MEAN CORPUSCULAR HGB CONC 32 g/dL (31-37); MEAN CORPUSCULAR VOLUME 89 fL (79-100); MONO % 6 % (0-9); NEUT % 5 % (31-73); PLATELET COUNT 191 x10^3/uL (140-400); RED BLOOD COUNT 3.68 x10^6/uL (4.30-5.70); RED CELL DISTRIBUTION WIDTH 19.2 % (11.5-14.5)
[2017-05-15 05:01] LABS: WHITE BLOOD COUNT 47.8 x10^3/uL (4.0-11.0)
[2017-05-15 05:04] LABS: INR 1.2 (0.8-1.1); PROTHROMBIN TIME PATIENT 14.2 SEC (11.7-14.0)
[2017-05-15] MEDS: PIPERACILLIN/TAZOBACTAM 3.375 GM in IV NORMAL SALINE 50ML 50 ML IV SCH ×4 (05:15→20:26)
[2017-05-15 05:32] LABS: ALBUMIN 2.2 g/dL (3.4-5.0); ALBUMIN/GLOBULIN RATIO 0.6 (1.0-1.7); CALCIUM 8.2 mg/dL (8.5-10.1); CREATININE 1.3 mg/dL (0.7-1.3); GFR 53.7; POTASSIUM 5.1 mmol/L (3.5-5.1); TOTAL BILIRUBIN 0.7 mg/dL (0.2-1.0); TOTAL PROTEIN 6.1 g/dL (6.4-8.2)
[2017-05-15 07:00] VITALS: BP 120/70
[2017-05-15] MEDS: BUDESONIDE 0.5 MG/2 ML NEBU. NEB SCH ×2 (07:32→21:38)
[2017-05-15] MEDS: IPRATRPIUM/ALBUTEROL 0.5/2.5MG 3 ML NEBU. NEB SCH ×2 (07:32→21:39)
--- NOTE | 2017-05-15 08:37 | RAD ---
Chest, 2 views, 05/14/2017: History: Leukocytosis Comparison is made to a study from 04/11/2017. A left-sided transvenous pacemaker remains in place with 2 leads extending in the right heart. The heart size and pulmonary vascularity are normal. There is calcific plaquing of aorta. There is blunting of the right lateral costophrenic angle due to a small amount of right-sided pleural fluid, better demonstrated on the current CT study. There is minimal right basilar atelectasis. No left lung infiltrate is seen. IMPRESSION: Small right pleural effusion with mild associated right basilar atelectasis.
[2017-05-15] MEDS: LACTOBACILLUS ACIDOPH & BULGAR 1 TABLET. PO SCH ×2 (08:45→17:10)
[2017-05-15] MEDS: FERROUS SULFATE 325 MG TABLET. PO SCH (08:45)
[2017-05-15] MEDS: DOCUSATE SODIUM 100 MG CAPSULE. PO SCH (08:45)
[2017-05-15] MEDS: VANCOMYCIN 125 MG/2.5 ML ORAL SOLUTION. PO SCH ×4 (08:45→20:20)
[2017-05-15] MEDS: TAMSULOSIN 0.4 MG CAP.ER.24H. PO SCH (08:46)
[2017-05-15] MEDS: FAMOTIDINE 20 MG TABLET. PO SCH (08:46)
[2017-05-15] MEDS: FINASTERIDE 5 MG TABLET. PO SCH (08:46)
[2017-05-15] MEDS ORDERED: LIDOCAINE (700MG/PATCH) PATCH. TD SCH (09:00)
[2017-05-15] MEDS ORDERED: FINASTERIDE 5 MG TABLET. PO SCH (09:00)
[2017-05-15] MEDS: ASCORBIC ACID 500 MG TABLET PO SCH ×2 (09:11→20:20)
[2017-05-15] MEDS: LIDOCAINE (700MG/PATCH) PATCH. TD SCH (09:12)
--- NOTE | 2017-05-15 09:35 | PDOC ---
PROGRESS NOTES Chief Complaint Chief Complaint Leukocytosis ASSESSMENT AND PLAN: 1. SIRS: with leukocytosis, fevers by report, none documented here. VSS. on empiric Abx 2. Retroperitoneal bleed s/p embolization of right iliolumbar artery 04/03. Current CT with overall improvement, but "development of multilobulated partial loculation and right retroperitoneal fluid without internal gas. Findings may represent evolution of blood products, however superimposed infection cannot be excluded." d/w ID: ?try to aspirate for cult. 3. Lymphocytosis: 80%, incongruent with acute infection. However, sudden development of lymphoproliferative d/o unlikely. H/O consult 4. CVA: at [facility] last month; residual R sided weakness, dysphagia 5. Dysphagia: swallow eval w/video today 6. Afib: chronic. borderline rate control off any meds. ?response to acute issues. monitor for now. 7. OAC: on coumadin, currently on hold 2/2 potential interventions. INR 1.2. start lovenox when stable 8. CHF: mild diastolic. minimize IVF 9. Hypoalbuminemia: mod-severe; combination of inflammatory response and malnutrition. high protein supplements anemia of blood loss Chronic lumbago, hypothyroidism CKD 2-3 COPD stable BPH, large dose flomax admit ID and Physiatry consult History of Present Illness History of Present Illness denies any focal pain. family at bedside, feel he is unchanged Vitals Vitals Vital Signs Date Time Temp Pulse Resp B/P (MAP) Pulse Ox O2 Delivery O2 Flow Rate FiO2 05/15/17 07:40 94 Room Air 05/15/17 07:00 97.8 76 18 120/70 (87) 97.8 Physical Exam General: Alert, Oriented X3, Cooperative, No acute distress Lungs: Clear Abdomen: Normal bowel sounds, No tenderness Extremities: No clubbing, No edema Skin: No rashes, No significant lesion Labs LABS Laboratory Tests Test 05/14/17 11:40 05/14/17 14:30 05/15/17 04:35 05/15/17 06:30 White Blood Count 36.2 x10^3/uL (4.0-11.0) 47.8 x10^3/uL (4.0-11.0) Red Blood Count 3.95 x10^6/uL (4.30-5.70) 3.68 x10^6/uL (4.30-5.70) Hemoglobin 11.3 g/dL (13.0-17.5) 10.6 g/dL (13.0-17.5) Hematocrit 36.0 % (39.0-53.0) 32.8 % (39.0-53.0) Mean Corpuscular Volume 91 fL (79-100) 89 fL (79-100) Mean Corpuscular Hemoglobin 29 pg (25-35) 29 pg (25-35) Mean Corpuscular Hemoglobin Concent 31 g/dL (31-37) 32 g/dL (31-37) Red Cell Distribution Width 19.1 % (11.5-14.5) 19.2 % (11.5-14.5) Platelet Count 187 x10^3/uL (140-400) 191 x10^3/uL (140-400) Neutrophils (%) (Auto) 7 % (31-73) 5 % (31-73) Lymphocytes (%) (Auto) 80 % (24-48) 85 % (24-48) Monocytes (%) (Auto) 7 % (0-9) 6 % (0-9) Eosinophils (%) (Auto) 5 % (0-3) 4 % (0-3) Basophils (%) (Auto) 0 % (0-3) 0 % (0-3) Neutrophils # (Auto) 2.6 x10^3uL (1.8-7.7) 2.2 x10^3uL (1.8-7.7) Lymphocytes # (Auto) 29.1 x10^3/uL (1.0-4.8) 40.7 x10^3/uL (1.0-4.8) Monocytes # (Auto) 2.7 x10^3/uL (0.0-1.1) 3.0 x10^3/uL (0.0-1.1) Eosinophils # (Auto) 1.9 x10^3/uL (0.0-0.7) 1.9 x10^3/uL (0.0-0.7) Basophils # (Auto) 0.1 x10^3/uL (0.0-0.2) 0.1 x10^3/uL (0.0-0.2) Segmented Neutrophils % 16 % (35-66) Band Neutrophils % % (0-9) Lymphocytes % 72 % (24-48) Monocytes % 6 % (0-10) Eosinophils % 4 % (0-5) Basophils % 2 % (0-3) Platelet Estimate Adequate (ADEQUATE) Erythrocyte Sedimentation Rate 30 (0-15) Sodium Level 137 mmol/L (136-145) 138 mmol/L (136-145) Potassium Level 5.3 mmol/L (3.5-5.1) 5.1 mmol/L (3.5-5.1) Chloride Level 105 mmol/L (98-107) 106 mmol/L (98-107) Carbon Dioxide Level 27 mmol/L (21-32) 28 mmol/L (21-32) Anion Gap 5 (6-14) 4 (6-14) Blood Urea Nitrogen 17 mg/dL (8-26) 15 mg/dL (8-26) Creatinine 1.2 mg/dL (0.7-1.3) 1.3 mg/dL (0.7-1.3) Estimated GFR (Cockcroft-Gault) 58.9 53.7 BUN/Creatinine Ratio 14 (6-20) 12 (6-20) Glucose Level 87 mg/dL (70-99) 81 mg/dL (70-99) Calcium Level 8.7 mg/dL (8.5-10.1) 8.2 mg/dL (8.5-10.1) Total Bilirubin 0.6 mg/dL (0.2-1.0) 0.7 mg/dL (0.2-1.0) Aspartate Amino Transf (AST/SGOT) 40 U/L (15-37) 33 U/L (15-37) Alanine Aminotransferase (ALT/SGPT) 16 U/L (16-63) 16 U/L (16-63) Alkaline Phosphatase 110 U/L (46-116) 99 U/L (46-116) Creatine Kinase 30 U/L (39-308) Total Protein 6.7 g/dL (6.4-8.2) 6.1 g/dL (6.4-8.2) Albumin 2.4 g/dL (3.4-5.0) 2.2 g/dL (3.4-5.0) Albumin/Globulin Ratio 0.6 (1.0-1.7) 0.6 (1.0-1.7) Urine Collection Type Unknown Urine Color Yellow Urine Clarity Clear Urine pH 6.0 Urine Specific [place] >=1.030 Urine Protein Negative mg/dL (NEG-TRACE) Urine Glucose (UA) Negative mg/dL (NEG) Urine Ketones (Stick) Negative mg/dL (NEG) Urine Blood Negative (NEG) Urine Nitrite Negative (NEG) Urine Bilirubin Negative (NEG) Urine Urobilinogen Dipstick 0.2 mg/dL (0.2 mg/dL) Urine Leukocyte Esterase Small (NEG) Urine RBC 0 /HPF (0-2) Urine WBC 5-10 /HPF (0-4) Urine Squamous Epithelial Cells Many /LPF Urine Bacteria Few /HPF (0-FEW) Prothrombin Time 14.2 SEC (11.7-14.0) Prothromb Time International Ratio 1.2 (0.8-1.1) Lactic Acid Level 0.9 mmol/L (0.4-2.0) ALLYSON CHAO MD May 15, 2017 09:35
[2017-05-15] MEDS: ONDANSETRON ODT 4 MG TAB.RAPDIS. PO PRN (10:21)
[2017-05-15 11:00] VITALS: BP 103/67
[2017-05-15] MEDS ORDERED: BARIUM SULFATE 40% (APPLE) 148 GM PWD. PO ONE (11:00)
--- NOTE | 2017-05-15 11:20 | PDOC ---
Infectious Disease Note Subjective Subjective Itchy rash, patient says rash developed before admission, and family say started yesterday Denies SOA, wheezing, cough Denies N/V/D/abdominal pain Denies F/C/S Vital Sign Vital Signs Vital Signs Date Time Temp Pulse Resp B/P (MAP) Pulse Ox O2 Delivery O2 Flow Rate FiO2 05/15/17 07:40 94 Room Air 05/15/17 07:00 97.8 76 18 120/70 (87) 97.8 Physical Exam PHYSICAL EXAM GENERAL: Sitting in the chair, joking HEENT: Oral cavity clear NECK: Supple LUNGS: Clear HEART: S1S2 ABD: Soft, NT, BS present EXT: BLE edema, no cyanosis STOPER: Alert, oriented x 3, no focal neurologic deficit SKIN: Macular-type rash torso/back IV: ok Labs Lab Laboratory Tests Test 05/14/17 11:40 05/14/17 14:30 05/15/17 04:35 05/15/17 06:30 White Blood Count 36.2 x10^3/uL (4.0-11.0) 47.8 x10^3/uL (4.0-11.0) Red Blood Count 3.95 x10^6/uL (4.30-5.70) 3.68 x10^6/uL (4.30-5.70) Hemoglobin 11.3 g/dL (13.0-17.5) 10.6 g/dL (13.0-17.5) Hematocrit 36.0 % (39.0-53.0) 32.8 % (39.0-53.0) Mean Corpuscular Volume 91 fL (79-100) 89 fL (79-100) Mean Corpuscular Hemoglobin 29 pg (25-35) 29 pg (25-35) Mean Corpuscular Hemoglobin Concent 31 g/dL (31-37) 32 g/dL (31-37) Red Cell Distribution Width 19.1 % (11.5-14.5) 19.2 % (11.5-14.5) Platelet Count 187 x10^3/uL (140-400) 191 x10^3/uL (140-400) Neutrophils (%) (Auto) 7 % (31-73) 5 % (31-73) Lymphocytes (%) (Auto) 80 % (24-48) 85 % (24-48) Monocytes (%) (Auto) 7 % (0-9) 6 % (0-9) Eosinophils (%) (Auto) 5 % (0-3) 4 % (0-3) Basophils (%) (Auto) 0 % (0-3) 0 % (0-3) Neutrophils # (Auto) 2.6 x10^3uL (1.8-7.7) 2.2 x10^3uL (1.8-7.7) Lymphocytes # (Auto) 29.1 x10^3/uL (1.0-4.8) 40.7 x10^3/uL (1.0-4.8) Monocytes # (Auto) 2.7 x10^3/uL (0.0-1.1) 3.0 x10^3/uL (0.0-1.1) Eosinophils # (Auto) 1.9 x10^3/uL (0.0-0.7) 1.9 x10^3/uL (0.0-0.7) Basophils # (Auto) 0.1 x10^3/uL (0.0-0.2) 0.1 x10^3/uL (0.0-0.2) Segmented Neutrophils % 16 % (35-66) Band Neutrophils % % (0-9) Lymphocytes % 72 % (24-48) Monocytes % 6 % (0-10) Eosinophils % 4 % (0-5) Basophils % 2 % (0-3) Platelet Estimate Adequate (ADEQUATE) Erythrocyte Sedimentation Rate 30 (0-15) Sodium Level 137 mmol/L (136-145) 138 mmol/L (136-145) Potassium Level 5.3 mmol/L (3.5-5.1) 5.1 mmol/L (3.5-5.1) Chloride Level 105 mmol/L (98-107) 106 mmol/L (98-107) Carbon Dioxide Level 27 mmol/L (21-32) 28 mmol/L (21-32) Anion Gap 5 (6-14) 4 (6-14) Blood Urea Nitrogen 17 mg/dL (8-26) 15 mg/dL (8-26) Creatinine 1.2 mg/dL (0.7-1.3) 1.3 mg/dL (0.7-1.3) Estimated GFR (Cockcroft-Gault) 58.9 53.7 BUN/Creatinine Ratio 14 (6-20) 12 (6-20) Glucose Level 87 mg/dL (70-99) 81 mg/dL (70-99) Calcium Level 8.7 mg/dL (8.5-10.1) 8.2 mg/dL (8.5-10.1) Total Bilirubin 0.6 mg/dL (0.2-1.0) 0.7 mg/dL (0.2-1.0) Aspartate Amino Transf (AST/SGOT) 40 U/L (15-37) 33 U/L (15-37) Alanine Aminotransferase (ALT/SGPT) 16 U/L (16-63) 16 U/L (16-63) Alkaline Phosphatase 110 U/L (46-116) 99 U/L (46-116) Creatine Kinase 30 U/L (39-308) Total Protein 6.7 g/dL (6.4-8.2) 6.1 g/dL (6.4-8.2) Albumin 2.4 g/dL (3.4-5.0) 2.2 g/dL (3.4-5.0) Albumin/Globulin Ratio 0.6 (1.0-1.7) 0.6 (1.0-1.7) Urine Collection Type Unknown Urine Color Yellow Urine Clarity Clear Urine pH 6.0 Urine Specific [place] >=1.030 Urine Protein Negative mg/dL (NEG-TRACE) Urine Glucose (UA) Negative mg/dL (NEG) Urine Ketones (Stick) Negative mg/dL (NEG) Urine Blood Negative (NEG) Urine Nitrite Negative (NEG) Urine Bilirubin Negative (NEG) Urine Urobilinogen Dipstick 0.2 mg/dL (0.2 mg/dL) Urine Leukocyte Esterase Small (NEG) Urine RBC 0 /HPF (0-2) Urine WBC 5-10 /HPF (0-4) Urine Squamous Epithelial Cells Many /LPF Urine Bacteria Few /HPF (0-FEW) Prothrombin Time 14.2 SEC (11.7-14.0) Prothromb Time International Ratio 1.2 (0.8-1.1) Lactic Acid Level 0.9 mmol/L (0.4-2.0) CT scan abd/pelvis Impression: 1. Improvement in overall size of right retroperitoneal blood products with development of multilobulated partial loculation and right retroperitoneal fluid without internal gas. Findings may represent evolution of blood products, however superimposed infection cannot be excluded. 2. Development of asymmetric anterior urinary bladder wall thickening which may represent cystitis. Correlation with urinalysis is recommended. 3. Mild prostate enlargement. Correlation with PSA. Chest X-RAY IMPRESSION: Small right pleural effusion with mild associated right basilar atelectasis. Objective Assessment Leukocytosis, worse with lymphocytosis Fluid collections on CT Pruritic rash Recent retroperitoneal bleed, status post coiling done. Respiratory failure. Cerebrovascular accident. Dysphagia. Small right pleural effusion & atelectasias Plan Plan of Care Zosyn and po vanc C diff pending UA unremarkable for infection Cultures pending D/w Reusch. Decadron ordered Await heme eval Attending Co-Sign The patient was seen and interviewed as well as examined at the bedside. The chart was reviewed. The case was discussed. Agree with the plan of care. LISSETH ONEIL APRN May 15, 2017 11:20 WILFRID AGUILAR MD May 15, 2017 14:49
[2017-05-15] MEDS ORDERED: DEXAMETHASONE SOD PHOS 4 MG/ML VIAL IV ONE (11:30)
[2017-05-15] MEDS: IV NORMAL SALINE 1000ML BAG 1,000 ML IV SCH ×2 (11:31→20:00)
[2017-05-15 15:00] VITALS: BP 128/79
--- NOTE | 2017-05-15 15:59 | PDOC ---
Provider Note Provider Note Onc consult dictated- [id number] Intermittent lymphocytosis- also experienced last admit with nml counts as well. Suspect exaggerated stress response, no clear infxn but agree with eval as per ID. Do not suspect CLL/ MPN with nml counts recently as well. BONNIE LOZA DO May 15, 2017 15:59
[2017-05-15 19:00] VITALS: BP 113/63
[2017-05-15] MEDS: traZODone 50 MG TABLET. PO SCH (20:20)
[2017-05-15] MEDS: ATORVASTATIN CALCIUM 40 MG TABLET. PO SCH (20:20)
[2017-05-15] MEDS: ENOXAPARIN 40 MG/0.4 ML SYRINGE. SQ SCH (20:25)
[2017-05-15 23:00] VITALS: BP 128/70
[2017-05-16] MEDS: MAG HYDROX/ALUMINUM HYD/SIMETH 30 ML ORAL.SUSP PO SCH ×8 (03:00→20:38)
--- NOTE | 2017-05-16 05:06 | CONS ---
DATE OF CONSULTATION: 05/15/2017 REFERRING PROVIDER: Dr. Figueroa. REASON FOR CONSULTATION: Lymphocytosis. HISTORY OF PRESENT ILLNESS: The patient is a 76-year-old male, who was admitted to the hospital in mid March for a significant retroperitoneal bleed while he was on Coumadin, status post microcoil embolization of the right iliolumbar artery. He remained off anticoagulation, likely lifelong, and unfortunately experienced an acute stroke resulting in right-sided weakness. He was discharged to a rehab facility. There he has been noted to have increasing lymphocytosis, reportedly with fevers, but none documented here. He does not have any obvious source of infection, but has been started empirically on linezolid, Zosyn and vancomycin. His CT of the abdomen/pelvis revealed. An improvement in the previous site of the retroperitoneal hematoma, but a few small areas that are unclear if loculated infection versus separate areas of the hematoma. Here his WBC was 36.2 and sandy to 47.8 today. In review of previous records in 12/2016, he had a normal WBC, when he presented with the hematoma in 04/02/2017, his WBC was 12.1 and sandy as high as 53, decreasing down to normal, 8.9 and discharged. He has a significant lymphocyte predominance with ALC 41. His neutrophil count is actually mildly low. Hemoglobin is stable at 10.6, platelets normal at 191. UA shows small leukocyte esterase, ESR 30. PAST MEDICAL HISTORY: Atrial fibrillation, now on no anticoagulation due to the significant retroperitoneal bleed. He experienced in 03/2017, COPD, BPH, obstructive sleep apnea, acute stroke in March, resulting in right-sided weakness. PAST SURGICAL HISTORY: Pacemaker, PCI, iliolumber embolization, bilateral knee surgery, hand surgery and left shoulder surgery. FAMILY HISTORY: Three brothers with cancers of unclear etiology. SOCIAL HISTORY: . No tobacco, alcohol or drug use. Currently residing in the rehab facility. PHYSICAL EXAMINATION: VITAL SIGNS: Temperature 97.3, pulse 74, respiratory rate 20, blood pressure 103/67 and 98% O2 on room air. GENERAL: He is alert and oriented, in no distress at this time, nontoxic appearing. HEENT: Extraocular muscles are intact with the exception of some right-sided eye drooping. CARDIOVASCULAR: Heart is regular in rhythm and rate. LUNGS: Clear to auscultation bilaterally. ABDOMEN: Soft, nontender. EXTREMITIES: No edema. NEUROLOGIC: Right-sided weakness remains. SKIN: No obvious rashes. IMAGING AND LABORATORY DATA: Pertinent information reviewed and summarized as above. ASSESSMENT AND PLAN: The patient is a 76-year-old male with the following medical problems: 1. Acute and historically intermittent lymphocytosis. Given that he has very recently had normal counts as well, I do not believe he has any underlying leukemia or myeloproliferative disorder. Furthermore, his hemoglobin is near normal, with a normal platelet count as well. Last admission, his WBC also sandy to 53, then improved. I suspect this is an exaggerated stress response. He does not have any obvious infections at this time, but aspiration of some of the fluid from his abdomen is planned for tomorrow. He is on empiric antibiotics with thorough evaluation per his primary and infectious disease teams. 2. History of atrial fibrillation, off anticoagulation as he experienced a significant retroperitoneal bleed, status post microcoil embolization in March 2017. Unfortunately, he later experienced an acute cerebrovascular accident with residual right-sided weakness. Unfortunately, because this bleeding was so massive, he will likely need to remain off anticoagulation lifelong. He is on aspirin. Thank you for alerting me of his admission and again allowing me to participate in his care. As I believe this is reactive in nature, I will likely resolve over time as it has historically. However, I agree with infectious evaluation as you are doing. BONNIE LOZA DO DR: PIERRE/oz JOB#: [id number] / [id number] GINA
[2017-05-16] MEDS: IV NORMAL SALINE 1000ML BAG 1,000 ML IV SCH ×2 (05:17→20:39)
[2017-05-16] MEDS: PIPERACILLIN/TAZOBACTAM 3.375 GM in IV NORMAL SALINE 50ML 50 ML IV SCH ×3 (05:19→17:26)
[2017-05-16 06:38] LABS: BASO # 0.1 x10^3/uL (0.0-0.2); BASO % 0 % (0-3); EOS % 1 % (0-3); HEMATOCRIT 33.3 % (39.0-53.0); HEMOGLOBIN 10.4 g/dL (13.0-17.5); LYMPH # 42.4 x10^3/uL (1.0-4.8); LYMPH % 84 % (24-48); MEAN CORPUSCULAR HEMOGLOBIN 28 pg (25-35); MEAN CORPUSCULAR HGB CONC 31 g/dL (31-37); MEAN CORPUSCULAR VOLUME 91 fL (79-100); MONO % 7 % (0-9); NEUT % 8 % (31-73); PLATELET COUNT 184 x10^3/uL (140-400); RED BLOOD COUNT 3.66 x10^6/uL (4.30-5.70); RED CELL DISTRIBUTION WIDTH 19.1 % (11.5-14.5)
[2017-05-16 06:42] LABS: WHITE BLOOD COUNT 50.4 x10^3/uL (4.0-11.0)
[2017-05-16 07:00] VITALS: BP 116/65
[2017-05-16] MEDS: BUDESONIDE 0.5 MG/2 ML NEBU. NEB SCH ×2 (07:46→19:42)
[2017-05-16] MEDS: IPRATRPIUM/ALBUTEROL 0.5/2.5MG 3 ML NEBU. NEB SCH ×2 (07:46→19:39)
[2017-05-16 07:50] LABS: CALCIUM 8.5 mg/dL (8.5-10.1); CREATININE 1.2 mg/dL (0.7-1.3); GFR 58.9
[2017-05-16 07:55] LABS: POTASSIUM 5.7 mmol/L (3.5-5.1)
--- NOTE | 2017-05-16 08:45 | RAD ---
Fluoroscopic swallow study 05/15/2017 Clinical indication: Dysphagia. Comparison: None. Findings: Total fluoroscopy time of 2.1 minutes. Multiple barium consistencies were self administered by the patient. There was deep laryngeal penetration with thin barium consistencies. Pharyngeal phase delay and vallecular residue noted. No aspiration. Impression: Deep laryngeal penetration without aspiration. Please see separate dictated speech pathology report for additional findings and recommendations.
--- NOTE | 2017-05-16 09:32 | PDOC ---
PROGRESS NOTES Subjective Subjective No new complaints. Objective Objective Vital Signs Date Time Temp Pulse Resp B/P (MAP) Pulse Ox O2 Delivery O2 Flow Rate FiO2 05/16/17 07:48 95 Room Air 05/16/17 07:00 98.0 80 14 116/65 (82) 98.0 Intake and Output 05/16/17 07:00 Intake Total 2580 ml Output Total 1800 ml Balance 780 ml Intake Oral 1580 ml Other 1000 ml Output Urine Total 1800 ml # Voids 2 # Bowel Movements 3 Physical Exam Physical Exam Oncology/hematology feels elevated WBC count is more of stress reaction. Plan Plan of Care To continue present physical and occupational therapy follow up and hopefully home with home health follow up when medically stable early next week as for the plan while at [facility]. Comment Review of Relevant I have reviewed the following items sarbjit (where applicable) has been applied. Labs Laboratory Tests Test 05/14/17 11:40 05/14/17 14:30 05/15/17 04:35 05/15/17 06:30 White Blood Count 36.2 x10^3/uL (4.0-11.0) 47.8 x10^3/uL (4.0-11.0) Red Blood Count 3.95 x10^6/uL (4.30-5.70) 3.68 x10^6/uL (4.30-5.70) Hemoglobin 11.3 g/dL (13.0-17.5) 10.6 g/dL (13.0-17.5) Hematocrit 36.0 % (39.0-53.0) 32.8 % (39.0-53.0) Mean Corpuscular Volume 91 fL (79-100) 89 fL (79-100) Mean Corpuscular Hemoglobin 29 pg (25-35) 29 pg (25-35) Mean Corpuscular Hemoglobin Concent 31 g/dL (31-37) 32 g/dL (31-37) Red Cell Distribution Width 19.1 % (11.5-14.5) 19.2 % (11.5-14.5) Platelet Count 187 x10^3/uL (140-400) 191 x10^3/uL (140-400) Neutrophils (%) (Auto) 7 % (31-73) 5 % (31-73) Lymphocytes (%) (Auto) 80 % (24-48) 85 % (24-48) Monocytes (%) (Auto) 7 % (0-9) 6 % (0-9) Eosinophils (%) (Auto) 5 % (0-3) 4 % (0-3) Basophils (%) (Auto) 0 % (0-3) 0 % (0-3) Neutrophils # (Auto) 2.6 x10^3uL (1.8-7.7) 2.2 x10^3uL (1.8-7.7) Lymphocytes # (Auto) 29.1 x10^3/uL (1.0-4.8) 40.7 x10^3/uL (1.0-4.8) Monocytes # (Auto) 2.7 x10^3/uL (0.0-1.1) 3.0 x10^3/uL (0.0-1.1) Eosinophils # (Auto) 1.9 x10^3/uL (0.0-0.7) 1.9 x10^3/uL (0.0-0.7) Basophils # (Auto) 0.1 x10^3/uL (0.0-0.2) 0.1 x10^3/uL (0.0-0.2) Segmented Neutrophils % 16 % (35-66) Band Neutrophils % % (0-9) Lymphocytes % 72 % (24-48) Monocytes % 6 % (0-10) Eosinophils % 4 % (0-5) Basophils % 2 % (0-3) Platelet Estimate Adequate (ADEQUATE) Erythrocyte Sedimentation Rate 30 (0-15) Sodium Level 137 mmol/L (136-145) 138 mmol/L (136-145) Potassium Level 5.3 mmol/L (3.5-5.1) 5.1 mmol/L (3.5-5.1) Chloride Level 105 mmol/L (98-107) 106 mmol/L (98-107) Carbon Dioxide Level 27 mmol/L (21-32) 28 mmol/L (21-32) Anion Gap 5 (6-14) 4 (6-14) Blood Urea Nitrogen 17 mg/dL (8-26) 15 mg/dL (8-26) Creatinine 1.2 mg/dL (0.7-1.3) 1.3 mg/dL (0.7-1.3) Estimated GFR (Cockcroft-Gault) 58.9 53.7 BUN/Creatinine Ratio 14 (6-20) 12 (6-20) Glucose Level 87 mg/dL (70-99) 81 mg/dL (70-99) Calcium Level 8.7 mg/dL (8.5-10.1) 8.2 mg/dL (8.5-10.1) Total Bilirubin 0.6 mg/dL (0.2-1.0) 0.7 mg/dL (0.2-1.0) Aspartate Amino Transf (AST/SGOT) 40 U/L (15-37) 33 U/L (15-37) Alanine Aminotransferase (ALT/SGPT) 16 U/L (16-63) 16 U/L (16-63) Alkaline Phosphatase 110 U/L (46-116) 99 U/L (46-116) Creatine Kinase 30 U/L (39-308) Total Protein 6.7 g/dL (6.4-8.2) 6.1 g/dL (6.4-8.2) Albumin 2.4 g/dL (3.4-5.0) 2.2 g/dL (3.4-5.0) Albumin/Globulin Ratio 0.6 (1.0-1.7) 0.6 (1.0-1.7) Urine Collection Type Unknown Urine Color Yellow Urine Clarity Clear Urine pH 6.0 Urine Specific Revere >=1.030 Urine Protein Negative mg/dL (NEG-TRACE) Urine Glucose (UA) Negative mg/dL (NEG) Urine Ketones (Stick) Negative mg/dL (NEG) Urine Blood Negative (NEG) Urine Nitrite Negative (NEG) Urine Bilirubin Negative (NEG) Urine Urobilinogen Dipstick 0.2 mg/dL (0.2 mg/dL) Urine Leukocyte Esterase Small (NEG) Urine RBC 0 /HPF (0-2) Urine WBC 5-10 /HPF (0-4) Urine Squamous Epithelial Cells Many /LPF Urine Bacteria Few /HPF (0-FEW) Prothrombin Time 14.2 SEC (11.7-14.0) Prothromb Time International Ratio 1.2 (0.8-1.1) Lactic Acid Level 0.9 mmol/L (0.4-2.0) Test 05/16/17 06:25 White Blood Count 50.4 x10^3/uL (4.0-11.0) Red Blood Count 3.66 x10^6/uL (4.30-5.70) Hemoglobin 10.4 g/dL (13.0-17.5) Hematocrit 33.3 % (39.0-53.0) Mean Corpuscular Volume 91 fL (79-100) Mean Corpuscular Hemoglobin 28 pg (25-35) Mean Corpuscular Hemoglobin Concent 31 g/dL (31-37) Red Cell Distribution Width 19.1 % (11.5-14.5) Platelet Count 184 x10^3/uL (140-400) Neutrophils (%) (Auto) 8 % (31-73) Lymphocytes (%) (Auto) 84 % (24-48) Monocytes (%) (Auto) 7 % (0-9) Eosinophils (%) (Auto) 1 % (0-3) Basophils (%) (Auto) 0 % (0-3) Neutrophils # (Auto) 4.1 x10^3uL (1.8-7.7) Lymphocytes # (Auto) 42.4 x10^3/uL (1.0-4.8) Monocytes # (Auto) 3.3 x10^3/uL (0.0-1.1) Eosinophils # (Auto) 0.5 x10^3/uL (0.0-0.7) Basophils # (Auto) 0.1 x10^3/uL (0.0-0.2) Sodium Level 137 mmol/L (136-145) Potassium Level 5.7 mmol/L (3.5-5.1) Chloride Level 105 mmol/L (98-107) Carbon Dioxide Level 25 mmol/L (21-32) Anion Gap 7 (6-14) Blood Urea Nitrogen 14 mg/dL (8-26) Creatinine 1.2 mg/dL (0.7-1.3) Estimated GFR (Cockcroft-Gault) 58.9 Glucose Level 101 mg/dL (70-99) Calcium Level 8.5 mg/dL (8.5-10.1) Laboratory Tests Test 05/16/17 06:25 White Blood Count 50.4 x10^3/uL (4.0-11.0) Red Blood Count 3.66 x10^6/uL (4.30-5.70) Hemoglobin 10.4 g/dL (13.0-17.5) Hematocrit 33.3 % (39.0-53.0) Mean Corpuscular Volume 91 fL (79-100) Mean Corpuscular Hemoglobin 28 pg (25-35) Mean Corpuscular Hemoglobin Concent 31 g/dL (31-37) Red Cell Distribution Width 19.1 % (11.5-14.5) Platelet Count 184 x10^3/uL (140-400) Neutrophils (%) (Auto) 8 % (31-73) Lymphocytes (%) (Auto) 84 % (24-48) Monocytes (%) (Auto) 7 % (0-9) Eosinophils (%) (Auto) 1 % (0-3) Basophils (%) (Auto) 0 % (0-3) Neutrophils # (Auto) 4.1 x10^3uL (1.8-7.7) Lymphocytes # (Auto) 42.4 x10^3/uL (1.0-4.8) Monocytes # (Auto) 3.3 x10^3/uL (0.0-1.1) Eosinophils # (Auto) 0.5 x10^3/uL (0.0-0.7) Basophils # (Auto) 0.1 x10^3/uL (0.0-0.2) Sodium Level 137 mmol/L (136-145) Potassium Level 5.7 mmol/L (3.5-5.1) Chloride Level 105 mmol/L (98-107) Carbon Dioxide Level 25 mmol/L (21-32) Anion Gap 7 (6-14) Blood Urea Nitrogen 14 mg/dL (8-26) Creatinine 1.2 mg/dL (0.7-1.3) Estimated GFR (Cockcroft-Gault) 58.9 Glucose Level 101 mg/dL (70-99) Calcium Level 8.5 mg/dL (8.5-10.1) Microbiology 05/14/17 Blood Culture - Preliminary, Resulted NO GROWTH AFTER 1 DAY Medications Current Medications Iohexol (Omnipaque 240 Mg/ml) 30 ml 1X ONCE PO Last administered on 05/14/17t 12:33; Start 05/14/17 at 11:45; Stop 05/14/17 at 11:46; Status DC Iohexol (Omnipaque 300 Mg/ml) 75 ml 1X ONCE IV Last administered on 05/14/17 12:33; Start 05/14/17 at 11:45; Stop 05/14/17 at 11:46; Status DC Info (Do NOT chart on this entry -- for MONITORING) 1 each PRN DAILY PRN MC SEE COMMENTS; Start 05/14/17 at 11:45; Stop 05/16/17 at 11:44 Bisacodyl (Dulcolax Tab) 10 mg PRN DAILY PRN PO CONSTIPATION; Start 05/14/17 at 12:00 Budesonide (Pulmicort) 0.5 mg RTBID NEB Last administered on 05/16/17 07:46; Start 05/14/17 at 20:00 Docusate Sodium (Colace) 100 mg DAILY PO Last administered on 05/15/17 08:45; Start 05/14/17 at 13:00 Famotidine (Pepcid) 20 mg DAILY PO Last administered on 05/15/17 08:46; Start 05/14/17 at 13:00 Finasteride (Proscar) 5 mg DAILY PO ; Start 05/15/17 at 09:00; Status UNV Finasteride (Proscar) 5 mg DAILY PO Last administered on 05/15/17 08:46; Start 05/14/17 at 13:00 Albuterol/ Ipratropium (Duoneb) 3 ml RTBID NEB Last administered on 05/16/17 07:46; Start 05/14/17 at 20:00 Nitroglycerin (Nitrostat) 0.4 mg PRN QID PRN SL chest pain; Start 05/14/17 at 12:00 Piperacillin Sod/ Tazobactam Sod (Zosyn) 3.375 gm Q6HRS IV ; Start 05/14/17 at 12:00; Status UNV Tamsulosin HCl (Flomax) 0.8 mg DAILY PO Last administered on 05/15/17 08:46; Start 05/14/17 at 13:00 Trazodone HCl (Desyrel) 50 mg HS PO Last administered on 05/15/17 20:20; Start 05/14/17 at 21:00 Albuterol Sulfate (Ventolin Neb Soln) 2.5 mg PRN Q4HRS PRN NEB SHORTNESS OF BREATH; Start 05/14/17 at 12:30 Ascorbic Acid (Vitamin C) 500 mg BID PO Last administered on 05/15/17 20:20; Start 05/14/17 at 21:00 Atorvastatin Calcium (Lipitor) 80 mg QHS PO Last administered on 05/15/17 20: 20; Start 05/14/17 at 21:00 Ferrous Sulfate (Feosol) 325 mg [id number] PO Last administered on 05/15/17 08 :45; Start 05/14/17 at 13:00 Lactobacillus Acidophilus (Bacid, Camila-Bid) 1 tab BIDAC PO Last administered on 05/15/17 17:10; Start 05/14/17 at 16:30 Al Hydroxide/Mg Hydroxide (Mylanta Plus Xs) 30 ml Q3HRS PO Last administered on 05/15/17 17:58; Start 05/14/17 at 15:00 Magnesium Hydroxide (Milk Of Magnesia) 2,400 mg PRN DAILY PRN PO CONSTIPATION; Start 05/14/17 at 12:45 Ondansetron HCl (Zofran Odt) 4 mg PRN Q6HRS PRN PO NAUSEA/VOMITING Last administered on 05/15/17 10:21; Start 05/14/17 at 12:45 Piperacillin Sod/ Tazobactam Sod 3.375 gm/Sodium Chloride 50 ml @ 100 mls/hr Q6HRS IV Last administered on 05/16/17 05:19; Start 05/14/17 at 18:00 Vancomycin HCl 125 mg [id number] PO Last administered on 05/15/17 20:20; Start at 17:00 Sodium Chloride 1,000 ml @ 100 mls/hr Q10H IV Last administered on 05/16/17 05:17; Start 05/14/17 at 14:00 Lidocaine (Lidoderm) 1 patch DAILY TD Last administered on 05/15/17 09:12; Start 05/14/17 at 16:15 Lidocaine (Lidoderm) 1 patch DAILY TD ; Start 05/15/17 at 09:00; Status UNV Acetaminophen (Tylenol) 650 mg PRN Q8HRS PRN PO MILD PAIN; Start 05/14/17 at 17 :15 Enoxaparin Sodium (Lovenox 40mg Syringe) 40 mg Q24H SQ Last administered on 20:25; Start 05/14/17 at 21:00 Barium Sulfate (Varibar Thin Liquid Apple) 148 gm 1X ONCE PO Last administered on 05/15/17 13:41; Start 05/15/17 at 11:00; Stop 05/15/17 at 11:01 ; Status DC Dexamethasone Sodium Phosphate (Decadron) 4 mg 1X ONCE IV Last administered on 05/15/17 11:32; Start 05/15/17 at 11:30; Stop 05/15/17 at 11:31; Status DC Linezolid 300 ml @ 300 mls/hr Q12HR IV Last administered on 05/15/17 20:24; Start 05/15/17 at 15:00 Active Scripts Active Reported Zosyn 3.375 Gram Vial (Piperacillin Sodium/Tazobactam) 3.375 Gm Vial 3.375 Gm IV Q6HRS Zofran (Ondansetron Hcl) 4 Mg Tablet 4 Mg PO Q6HRS PRN Trazodone Hcl 50 Mg Tablet 50 Mg PO HS Duoneb 0.5-3(2.5) Mg/3 Ml (Albuterol/Ipratropium) 3 Ml Ampul.neb 3 Ml NEB BID Diphenhydramine Hcl 50 Mg Capsule 25 Mg PO Q6HRS Vitamin C (Ascorbic Acid) 500 Mg Capsule.er 500 Mg PO BID Acidophilus (Lactobacillus Acidophilus) 1 Each Capsule 1 Cap PO BIDAC Proscar (Finasteride) 5 Mg Tablet 5 Mg PO DAILY Pulmicort (Budesonide) 0.5 Mg/2 Ml Ampul.neb 0.5 Mg IH BID Proair Hfa Inhaler (Albuterol Sulfate) 8.5 Gm Hfa.aer.ad 2 Puff INH PRN Q4HRS PRN Dulcolax (Bisacodyl) 5 Mg Tablet.dr 10 Mg PO PRN DAILY PRN Milk Of Magnesia (Magnesium Hydroxide) 2,400 Mg/10 Ml Oral.susp 2,400 Mg PO PRN PRN Mintox Plus Tablet Chewable (Mag Hydrox/Al Hydrox/Simeth) 1 Each Tab.chew 1 Each PO Q3HRS Docusate Sodium 100 Mg Capsule 100 Mg PO PRN Acetaminophen 500 Mg Tablet 650 Mg PO PRN Tamsulosin Hcl 0.4 Mg Cap.er.24h 0.8 Mg PO DAILY Atorvastatin Calcium 80 Mg Tablet 80 Mg PO HS Ferrous Sulfate 220 Mg/5 Ml Elixir 325 Mg PO DAILY Famotidine 20 Mg Tablet 20 Mg PO DAILY Augmentin 875-125 Tablet (Amoxicillin/Potassium Clav) 1 Each Tablet 1 Tab PO BID Proair Hfa (Albuterol Sulfate) 8.5 Gm Hfa.aer.ad 9 Gm IH NITROGLYCERIN SubLingual (Nitroglycerin) 0.4 Mg Tab.subl 1 Tab SL UD Coumadin (Warfarin Sodium) 3 Mg Tablet 1 Tab PO DAILY Proair Hfa Inhaler (Albuterol Sulfate) 8.5 Gm Hfa.aer.ad 1-2 Inh IH Q4-6 HRS PRN Lipitor (Atorvastatin Calcium) 80 Mg Tablet 80 Mg PO DAILY Vitals/I & O Vital Sign - Last 24 Hours 05/15/17 05/15/17 05/15/17 05/15/17 11:00 15:00 19:00 19:11 Temp 97.3 97.0 97.8 97.3 97.0 97.8 Pulse 74 82 78 Resp 20 22 16 B/P (MAP) 103/67 (79) 128/79 (95) 113/63 (80) Pulse Ox 98 96 93 O2 Delivery Room Air Room Air 05/15/17 05/15/17 05/15/17 05/16/17 21:40 21:41 23:00 07:00 Temp 98.4 98.0 98.4 98.0 Pulse 88 80 Resp 18 14 B/P (MAP) 128/70 (89) 116/65 (82) Pulse Ox 95 95 95 98 O2 Delivery Room Air Room Air Room Air 05/16/17 07:48 Pulse Ox 95 O2 Delivery Room Air Intake and Output 05/15/17 05/15/17 05/16/17 15:00 23:00 07:00 Intake Total 740 ml 840 ml 1000 ml Output Total 300 ml 600 ml 900 ml Balance 440 ml 240 ml 100 ml Nutrition Consultation Dietary Evaluation: Recommendations by RD: Increase Calorie Intake, Protein supplementation Comments: ensure tid Expected Outcomes/Goals: to meet > 75% est nutr needs Interpretation of weight loss: >5% in 1 month Malnutrition Findings: Weight Status: Appropriate Fluid Accumulation (Non-Severe: Mild depletion DAO CROWLEY MD May 16, 2017 09:32
[2017-05-16] MEDS: TAMSULOSIN 0.4 MG CAP.ER.24H. PO SCH (09:53)
[2017-05-16] MEDS: LACTOBACILLUS ACIDOPH & BULGAR 1 TABLET. PO SCH ×2 (09:53→17:26)
[2017-05-16] MEDS: ASCORBIC ACID 500 MG TABLET PO SCH ×2 (09:53→20:38)
[2017-05-16] MEDS: VANCOMYCIN 125 MG/2.5 ML ORAL SOLUTION. PO SCH ×4 (09:53→20:39)
[2017-05-16] MEDS: FINASTERIDE 5 MG TABLET. PO SCH (09:54)
[2017-05-16] MEDS: LIDOCAINE (700MG/PATCH) PATCH. TD SCH (09:54)
[2017-05-16] MEDS: FAMOTIDINE 20 MG TABLET. PO SCH (09:54)
[2017-05-16] MEDS: FERROUS SULFATE 325 MG TABLET. PO SCH (10:00)
[2017-05-16] MEDS: DOCUSATE SODIUM 100 MG CAPSULE. PO SCH (10:02)
[2017-05-16 11:00] VITALS: BP 120/58
--- NOTE | 2017-05-16 11:17 | PDOC ---
Infectious Disease Note Subjective Subjective NPO for drainage of fluid collection this afternoon. Confusion earlier Loose stools ROS ROS GEN: Denies fevers, chills, sweats CV: Denies chest pain RESP: Denies shortness of air, cough GI: Denies n/v/abd pain Vital Sign Vital Signs Vital Signs Date Time Temp Pulse Resp B/P (MAP) Pulse Ox O2 Delivery O2 Flow Rate FiO2 05/16/17 10:52 Room Air 05/16/17 07:48 95 05/16/17 07:00 98.0 80 14 116/65 (82) 98.0 Physical Exam PHYSICAL EXAM GENERAL: Propped up in bed, NAD HEENT: Oral cavity clear NECK: Supple LUNGS: Clear HEART: S1S2 ABD: Soft, NT, BS present EXT: BLE edema, no cyanosis CLINICAL LAB SPECIALIST: Alert,responding appropriately SKIN: Macular-type rash torso/back- fading Labs Lab Laboratory Tests Test 05/16/17 06:25 White Blood Count 50.4 x10^3/uL (4.0-11.0) Red Blood Count 3.66 x10^6/uL (4.30-5.70) Hemoglobin 10.4 g/dL (13.0-17.5) Hematocrit 33.3 % (39.0-53.0) Mean Corpuscular Volume 91 fL (79-100) Mean Corpuscular Hemoglobin 28 pg (25-35) Mean Corpuscular Hemoglobin Concent 31 g/dL (31-37) Red Cell Distribution Width 19.1 % (11.5-14.5) Platelet Count 184 x10^3/uL (140-400) Neutrophils (%) (Auto) 8 % (31-73) Lymphocytes (%) (Auto) 84 % (24-48) Monocytes (%) (Auto) 7 % (0-9) Eosinophils (%) (Auto) 1 % (0-3) Basophils (%) (Auto) 0 % (0-3) Neutrophils # (Auto) 4.1 x10^3uL (1.8-7.7) Lymphocytes # (Auto) 42.4 x10^3/uL (1.0-4.8) Monocytes # (Auto) 3.3 x10^3/uL (0.0-1.1) Eosinophils # (Auto) 0.5 x10^3/uL (0.0-0.7) Basophils # (Auto) 0.1 x10^3/uL (0.0-0.2) Sodium Level 137 mmol/L (136-145) Potassium Level 5.7 mmol/L (3.5-5.1) Chloride Level 105 mmol/L (98-107) Carbon Dioxide Level 25 mmol/L (21-32) Anion Gap 7 (6-14) Blood Urea Nitrogen 14 mg/dL (8-26) Creatinine 1.2 mg/dL (0.7-1.3) Estimated GFR (Cockcroft-Gault) 58.9 Glucose Level 101 mg/dL (70-99) Calcium Level 8.5 mg/dL (8.5-10.1) Fluoroscopic swallow study 05/15/2017 Findings: Multiple barium consistencies were self administered by the patient. There was deep laryngeal penetration with thin barium consistencies. Pharyngeal phase delay and vallecular residue noted. No aspiration. Impression: Deep laryngeal penetration without aspiration. Please see separate dictated speech pathology report for additional findings and recommendations. Micro BLOOD CULTURE Preliminary NO GROWTH AFTER 1 DAY Objective Assessment Leukocytosis, worse with lymphocytosis Fluid collections on CT Pruritic rash Recent retroperitoneal bleed, status post coiling done. Respiratory failure. Cerebrovascular accident. Dysphagia. Small right pleural effusion & atelectasias Plan Plan of Care Zyvox,Zosyn and po vanc C diff pending Await IR D/w family Attending Co-Sign The patient was seen and interviewed as well as examined at the bedside. The chart was reviewed. The case was discussed. Agree with the plan of care. add micafungin ct drainage pending LISSETH ONEIL APRN May 16, 2017 11:17 WILFRID AGUILAR MD May 16, 2017 14:04
--- NOTE | 2017-05-16 14:31 | PDOC ---
PROGRESS NOTES Chief Complaint Chief Complaint Leukocytosis ASSESSMENT AND PLAN: 1. SIRS: with leukocytosis, fevers by report, none documented here. VSS. on empiric Abx 2. Retroperitoneal bleed s/p embolization of right iliolumbar artery 04/03. Current CT with overall improvement, but "development of multilobulated partial loculation and right retroperitoneal fluid without internal gas. Findings may represent evolution of blood products, however superimposed infection cannot be excluded." d/w ID: planned aspiration for cult. in VIR 3. Lymphocytosis: 80%, incongruent with acute infection. appreciate Hem input: leukemoid rxn rather than lymphoprolif d/o; pt hactually has been seen in past with similar issues: reactive, not infectious 4. CVA: at [facility] last month; residual R sided weakness, dysphagia 5. Dysphagia: swallow eval w/video today 6. Afib: chronic. borderline rate control off any meds. ?response to acute issues. monitor for now. 7. OAC: on coumadin, currently on hold 2/2 potential interventions. INR 1.2. start lovenox when stable, with switch to coumadin (can start post procedure, titrate at home) 8. CHF: mild diastolic. minimize IVF 9. Hypoalbuminemia: mod-severe; combination of inflammatory response and malnutrition. high protein supplements 10. owning: noted by RN and family in previous nights. not on any sedating meds. may benefit from seroquel qHS 11. 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 family at bedside, sl more confused today Vitals Vitals Vital Signs Date Time Temp Pulse Resp B/P (MAP) Pulse Ox O2 Delivery O2 Flow Rate FiO2 05/16/17 11:00 99.1 88 16 120/58 (78) 98 Room Air 99.1 Physical Exam General: Alert, Oriented X3, Cooperative, No acute distress Heart: Other (sl irreg) Lungs: Clear Abdomen: Normal bowel sounds, No tenderness Extremities: No clubbing, No edema Skin: No rashes, No significant lesion Labs LABS Laboratory Tests Test 05/16/17 06:25 White Blood Count 50.4 x10^3/uL (4.0-11.0) Red Blood Count 3.66 x10^6/uL (4.30-5.70) Hemoglobin 10.4 g/dL (13.0-17.5) Hematocrit 33.3 % (39.0-53.0) Mean Corpuscular Volume 91 fL (79-100) Mean Corpuscular Hemoglobin 28 pg (25-35) Mean Corpuscular Hemoglobin Concent 31 g/dL (31-37) Red Cell Distribution Width 19.1 % (11.5-14.5) Platelet Count 184 x10^3/uL (140-400) Neutrophils (%) (Auto) 8 % (31-73) Lymphocytes (%) (Auto) 84 % (24-48) Monocytes (%) (Auto) 7 % (0-9) Eosinophils (%) (Auto) 1 % (0-3) Basophils (%) (Auto) 0 % (0-3) Neutrophils # (Auto) 4.1 x10^3uL (1.8-7.7) Lymphocytes # (Auto) 42.4 x10^3/uL (1.0-4.8) Monocytes # (Auto) 3.3 x10^3/uL (0.0-1.1) Eosinophils # (Auto) 0.5 x10^3/uL (0.0-0.7) Basophils # (Auto) 0.1 x10^3/uL (0.0-0.2) Sodium Level 137 mmol/L (136-145) Potassium Level 5.7 mmol/L (3.5-5.1) Chloride Level 105 mmol/L (98-107) Carbon Dioxide Level 25 mmol/L (21-32) Anion Gap 7 (6-14) Blood Urea Nitrogen 14 mg/dL (8-26) Creatinine 1.2 mg/dL (0.7-1.3) Estimated GFR (Cockcroft-Gault) 58.9 Glucose Level 101 mg/dL (70-99) Calcium Level 8.5 mg/dL (8.5-10.1) Comment Review of Relevant I have reviewed the following items sarbjit (where applicable) has been applied. Labs Laboratory Tests Test 05/14/17 14:30 05/15/17 04:35 05/15/17 06:30 05/16/17 06:25 Urine Collection Type Unknown Urine Color Yellow Urine Clarity Clear Urine pH 6.0 Urine Specific [place] >=1.030 Urine Protein Negative mg/dL (NEG-TRACE) Urine Glucose (UA) Negative mg/dL (NEG) Urine Ketones (Stick) Negative mg/dL (NEG) Urine Blood Negative (NEG) Urine Nitrite Negative (NEG) Urine Bilirubin Negative (NEG) Urine Urobilinogen Dipstick 0.2 mg/dL (0.2 mg/dL) Urine Leukocyte Esterase Small (NEG) Urine RBC 0 /HPF (0-2) Urine WBC 5-10 /HPF (0-4) Urine Squamous Epithelial Cells Many /LPF Urine Bacteria Few /HPF (0-FEW) White Blood Count 47.8 x10^3/uL (4.0-11.0) 50.4 x10^3/uL (4.0-11.0) Red Blood Count 3.68 x10^6/uL (4.30-5.70) 3.66 x10^6/uL (4.30-5.70) Hemoglobin 10.6 g/dL (13.0-17.5) 10.4 g/dL (13.0-17.5) Hematocrit 32.8 % (39.0-53.0) 33.3 % (39.0-53.0) Mean Corpuscular Volume 89 fL (79-100) 91 fL (79-100) Mean Corpuscular Hemoglobin 29 pg (25-35) 28 pg (25-35) Mean Corpuscular Hemoglobin Concent 32 g/dL (31-37) 31 g/dL (31-37) Red Cell Distribution Width 19.2 % (11.5-14.5) 19.1 % (11.5-14.5) Platelet Count 191 x10^3/uL (140-400) 184 x10^3/uL (140-400) Neutrophils (%) (Auto) 5 % (31-73) 8 % (31-73) Lymphocytes (%) (Auto) 85 % (24-48) 84 % (24-48) Monocytes (%) (Auto) 6 % (0-9) 7 % (0-9) Eosinophils (%) (Auto) 4 % (0-3) 1 % (0-3) Basophils (%) (Auto) 0 % (0-3) 0 % (0-3) Neutrophils # (Auto) 2.2 x10^3uL (1.8-7.7) 4.1 x10^3uL (1.8-7.7) Lymphocytes # (Auto) 40.7 x10^3/uL (1.0-4.8) 42.4 x10^3/uL (1.0-4.8) Monocytes # (Auto) 3.0 x10^3/uL (0.0-1.1) 3.3 x10^3/uL (0.0-1.1) Eosinophils # (Auto) 1.9 x10^3/uL (0.0-0.7) 0.5 x10^3/uL (0.0-0.7) Basophils # (Auto) 0.1 x10^3/uL (0.0-0.2) 0.1 x10^3/uL (0.0-0.2) Prothrombin Time 14.2 SEC (11.7-14.0) Prothromb Time International Ratio 1.2 (0.8-1.1) Sodium Level 138 mmol/L (136-145) 137 mmol/L (136-145) Potassium Level 5.1 mmol/L (3.5-5.1) 5.7 mmol/L (3.5-5.1) Chloride Level 106 mmol/L (98-107) 105 mmol/L (98-107) Carbon Dioxide Level 28 mmol/L (21-32) 25 mmol/L (21-32) Anion Gap 4 (6-14) 7 (6-14) Blood Urea Nitrogen 15 mg/dL (8-26) 14 mg/dL (8-26) Creatinine 1.3 mg/dL (0.7-1.3) 1.2 mg/dL (0.7-1.3) Estimated GFR (Cockcroft-Gault) 53.7 58.9 BUN/Creatinine Ratio 12 (6-20) Glucose Level 81 mg/dL (70-99) 101 mg/dL (70-99) Calcium Level 8.2 mg/dL (8.5-10.1) 8.5 mg/dL (8.5-10.1) Total Bilirubin 0.7 mg/dL (0.2-1.0) Aspartate Amino Transf (AST/SGOT) 33 U/L (15-37) Alanine Aminotransferase (ALT/SGPT) 16 U/L (16-63) Alkaline Phosphatase 99 U/L (46-116) Total Protein 6.1 g/dL (6.4-8.2) Albumin 2.2 g/dL (3.4-5.0) Albumin/Globulin Ratio 0.6 (1.0-1.7) Lactic Acid Level 0.9 mmol/L (0.4-2.0) Laboratory Tests Test 05/16/17 06:25 White Blood Count 50.4 x10^3/uL (4.0-11.0) Red Blood Count 3.66 x10^6/uL (4.30-5.70) Hemoglobin 10.4 g/dL (13.0-17.5) Hematocrit 33.3 % (39.0-53.0) Mean Corpuscular Volume 91 fL (79-100) Mean Corpuscular Hemoglobin 28 pg (25-35) Mean Corpuscular Hemoglobin Concent 31 g/dL (31-37) Red Cell Distribution Width 19.1 % (11.5-14.5) Platelet Count 184 x10^3/uL (140-400) Neutrophils (%) (Auto) 8 % (31-73) Lymphocytes (%) (Auto) 84 % (24-48) Monocytes (%) (Auto) 7 % (0-9) Eosinophils (%) (Auto) 1 % (0-3) Basophils (%) (Auto) 0 % (0-3) Neutrophils # (Auto) 4.1 x10^3uL (1.8-7.7) Lymphocytes # (Auto) 42.4 x10^3/uL (1.0-4.8) Monocytes # (Auto) 3.3 x10^3/uL (0.0-1.1) Eosinophils # (Auto) 0.5 x10^3/uL (0.0-0.7) Basophils # (Auto) 0.1 x10^3/uL (0.0-0.2) Sodium Level 137 mmol/L (136-145) Potassium Level 5.7 mmol/L (3.5-5.1) Chloride Level 105 mmol/L (98-107) Carbon Dioxide Level 25 mmol/L (21-32) Anion Gap 7 (6-14) Blood Urea Nitrogen 14 mg/dL (8-26) Creatinine 1.2 mg/dL (0.7-1.3) Estimated GFR (Cockcroft-Gault) 58.9 Glucose Level 101 mg/dL (70-99) Calcium Level 8.5 mg/dL (8.5-10.1) Microbiology 05/14/17 Blood Culture - Preliminary, Resulted NO GROWTH AFTER 2 DAYS 05/14/17 Urine Culture - Final, Complete 05/14/17 Urine Culture Result 1 (EDA) - Final, Complete Medications Current Medications Iohexol (Omnipaque 240 Mg/ml) 30 ml 1X ONCE PO Last administered on 05/14/17 12:33; Start 05/14/17 at 11:45; Stop 05/14/17 at 11:46; Status DC Iohexol (Omnipaque 300 Mg/ml) 75 ml 1X ONCE IV Last administered on 05/14/17 12:33; Start 05/14/17 at 11:45; Stop 05/14/17 at 11:46; Status DC Info (Do NOT chart on this entry -- for MONITORING) 1 each PRN DAILY PRN MC SEE COMMENTS; Start 05/14/17 at 11:45; Stop 05/16/17 at 11:44; Status DC Bisacodyl (Dulcolax Tab) 10 mg PRN DAILY PRN PO CONSTIPATION; Start 05/14/17 at 12:00 Budesonide (Pulmicort) 0.5 mg RTBID NEB Last administered on 05/16/17 07:46; Start 05/14/17 at 20:00 Docusate Sodium (Colace) 100 mg DAILY PO Last administered on 05/15/17 08:45; Start 05/14/17 at 13:00 Famotidine (Pepcid) 20 mg DAILY PO Last administered on 05/16/17 09:54; Start 05/14/17 at 13:00 Finasteride (Proscar) 5 mg DAILY PO ; Start 05/15/17 at 09:00; Status UNV Finasteride (Proscar) 5 mg DAILY PO Last administered on 05/16/17 09:54; Start 05/14/17 at 13:00 Albuterol/ Ipratropium (Duoneb) 3 ml RTBID NEB Last administered on 05/16/17 07:46; Start 05/14/17 at 20:00 Nitroglycerin (Nitrostat) 0.4 mg PRN QID PRN SL chest pain; Start 05/14/17 at 12:00 Piperacillin Sod/ Tazobactam Sod (Zosyn) 3.375 gm Q6HRS IV ; Start 05/14/17 at 12:00; Status UNV Tamsulosin HCl (Flomax) 0.8 mg DAILY PO Last administered on 05/16/17 09:53; Start 05/14/17 at 13:00 Trazodone HCl (Desyrel) 50 mg HS PO Last administered on 05/15/17 20:20; Start 05/14/17 at 21:00 Albuterol Sulfate (Ventolin Neb Soln) 2.5 mg PRN Q4HRS PRN NEB SHORTNESS OF BREATH; Start 05/14/17 at 12:30 Ascorbic Acid (Vitamin C) 500 mg BID PO Last administered on 05/16/17 09:53; Start 05/14/17 at 21:00 Atorvastatin Calcium (Lipitor) 80 mg QHS PO Last administered on 05/15/17 20: 20; Start 05/14/17 at 21:00 Ferrous Sulfate (Feosol) 325 mg [id number] PO Last administered on 05/15/17 08 :45; Start 05/14/17 at 13:00 Lactobacillus Acidophilus (Bacid, Camila-Bid) 1 tab BIDAC PO Last administered on 05/16/17 09:53; Start 05/14/17 at 16:30 Al Hydroxide/Mg Hydroxide (Mylanta Plus Xs) 30 ml Q3HRS PO Last administered on 05/15/17 17:58; Start 05/14/17 at 15:00 Magnesium Hydroxide (Milk Of Magnesia) 2,400 mg PRN DAILY PRN PO CONSTIPATION; Start 05/14/17 at 12:45 Ondansetron HCl (Zofran Odt) 4 mg PRN Q6HRS PRN PO NAUSEA/VOMITING Last administered on 05/15/17 10:21; Start 05/14/17 at 12:45 Piperacillin Sod/ Tazobactam Sod 3.375 gm/Sodium Chloride 50 ml @ 100 mls/hr Q6HRS IV Last administered on 05/16/17 11:40; Start 05/14/17 at 18:00 Vancomycin HCl 125 mg [id number] PO Last administered on 05/16/17 09:53; Start at 17:00 Sodium Chloride 1,000 ml @ 100 mls/hr Q10H IV Last administered on 05/16/17 05:17; Start 05/14/17 at 14:00 Lidocaine (Lidoderm) 1 patch DAILY TD Last administered on 05/15/17 09:12; Start 05/14/17 at 16:15 Lidocaine (Lidoderm) 1 patch DAILY TD ; Start 05/15/17 at 09:00; Status UNV Acetaminophen (Tylenol) 650 mg PRN Q8HRS PRN PO MILD PAIN; Start 05/14/17 at 17 :15 Enoxaparin Sodium (Lovenox 40mg Syringe) 40 mg Q24H SQ Last administered on 20:25; Start 05/14/17 at 21:00 Barium Sulfate (Varibar Thin Liquid Apple) 148 gm 1X ONCE PO Last administered on 05/15/17 13:41; Start 05/15/17 at 11:00; Stop 05/15/17 at 11:01 ; Status DC Dexamethasone Sodium Phosphate (Decadron) 4 mg 1X ONCE IV Last administered on 05/15/17 11:32; Start 05/15/17 at 11:30; Stop 05/15/17 at 11:31; Status DC Linezolid 300 ml @ 300 mls/hr Q12HR IV Last administered on 05/16/17 09:51; Start 05/15/17 at 15:00 Micafungin Sodium 100 mg/Dextrose 100 ml @ 100 mls/hr Q24H IV ; Start 05/16/17 at 15:00 Active Scripts Active Reported Zosyn 3.375 Gram Vial (Piperacillin Sodium/Tazobactam) 3.375 Gm Vial 3.375 Gm IV Q6HRS Zofran (Ondansetron Hcl) 4 Mg Tablet 4 Mg PO Q6HRS PRN Trazodone Hcl 50 Mg Tablet 50 Mg PO HS Duoneb 0.5-3(2.5) Mg/3 Ml (Albuterol/Ipratropium) 3 Ml Ampul.neb 3 Ml NEB BID Diphenhydramine Hcl 50 Mg Capsule 25 Mg PO Q6HRS Vitamin C (Ascorbic Acid) 500 Mg Capsule.er 500 Mg PO BID Acidophilus (Lactobacillus Acidophilus) 1 Each Capsule 1 Cap PO BIDAC Proscar (Finasteride) 5 Mg Tablet 5 Mg PO DAILY Pulmicort (Budesonide) 0.5 Mg/2 Ml Ampul.neb 0.5 Mg IH BID Proair Hfa Inhaler (Albuterol Sulfate) 8.5 Gm Hfa.aer.ad 2 Puff INH PRN Q4HRS PRN Dulcolax (Bisacodyl) 5 Mg Tablet.dr 10 Mg PO PRN DAILY PRN Milk Of Magnesia (Magnesium Hydroxide) 2,400 Mg/10 Ml Oral.susp 2,400 Mg PO PRN PRN Mintox Plus Tablet Chewable (Mag Hydrox/Al Hydrox/Simeth) 1 Each Tab.chew 1 Each PO Q3HRS Docusate Sodium 100 Mg Capsule 100 Mg PO PRN Acetaminophen 500 Mg Tablet 650 Mg PO PRN Tamsulosin Hcl 0.4 Mg Cap.er.24h 0.8 Mg PO DAILY Atorvastatin Calcium 80 Mg Tablet 80 Mg PO HS Ferrous Sulfate 220 Mg/5 Ml Elixir 325 Mg PO DAILY Famotidine 20 Mg Tablet 20 Mg PO DAILY Augmentin 875-125 Tablet (Amoxicillin/Potassium Clav) 1 Each Tablet 1 Tab PO BID Proair Hfa (Albuterol Sulfate) 8.5 Gm Hfa.aer.ad 9 Gm IH NITROGLYCERIN SubLingual (Nitroglycerin) 0.4 Mg Tab.subl 1 Tab SL UD Coumadin (Warfarin Sodium) 3 Mg Tablet 1 Tab PO DAILY Proair Hfa Inhaler (Albuterol Sulfate) 8.5 Gm Hfa.aer.ad 1-2 Inh IH Q4-6 HRS PRN Lipitor (Atorvastatin Calcium) 80 Mg Tablet 80 Mg PO DAILY Vitals/I & O Vital Sign - Last 24 Hours 05/15/17 05/15/17 05/15/17 05/15/17 15:00 19:00 19:11 21:40 Temp 97.0 97.8 97.0 97.8 Pulse 82 78 Resp 22 16 B/P (MAP) 128/79 (95) 113/63 (80) Pulse Ox 96 93 95 O2 Delivery Room Air Room Air Room Air 05/15/17 05/15/17 05/16/17 05/16/17 21:41 23:00 07:00 07:48 Temp 98.4 98.0 98.4 98.0 Pulse 88 80 Resp 18 14 B/P (MAP) 128/70 (89) 116/65 (82) Pulse Ox 95 95 98 95 O2 Delivery Room Air Room Air Room Air 05/16/17 05/16/17 05/16/17 08:00 10:52 11:00 Temp 99.1 99.1 Pulse 88 Resp 16 B/P (MAP) 120/58 (78) Pulse Ox 98 O2 Delivery Room Air Room Air Room Air Intake and Output 05/15/17 05/15/17 05/16/17 15:00 23:00 07:00 Intake Total 740 ml 840 ml 1000 ml Output Total 300 ml 600 ml 900 ml Balance 440 ml 240 ml 100 ml Nutrition Consultation Dietary Evaluation: Recommendations by RD: Increase Calorie Intake, Protein supplementation Comments: ensure tid Expected Outcomes/Goals: to meet > 75% est nutr needs Interpretation of weight loss: >5% in 1 month Malnutrition Findings: Weight Status: Appropriate Fluid Accumulation (Non-Severe: Mild depletion ALLYSON CHAO MD May 16, 2017 14:31
[2017-05-16] MEDS ORDERED: SODIUM POLYSTYRENE SULFONATE 15 GM/60 ML ORAL.SUSP. PO ONE (14:45)
[2017-05-16] MEDS: MICAFUNGIN 100 MG in IV DEXTROSE 5% 100 ML IV SCH (14:49)
[2017-05-16 15:00] VITALS: BP 128/68
[2017-05-16 19:00] VITALS: BP 125/67
[2017-05-16] MEDS: diphenhydrAMINE HCL 25 MG CAPSULE PO PRN (20:37)
[2017-05-16] MEDS: traZODone 50 MG TABLET. PO SCH (20:38)
[2017-05-16] MEDS: ATORVASTATIN CALCIUM 40 MG TABLET. PO SCH (20:38)
[2017-05-16] MEDS: ENOXAPARIN 40 MG/0.4 ML SYRINGE. SQ SCH (20:40)
[2017-05-16 23:00] VITALS: BP 107/65
[2017-05-17] MEDS: MAG HYDROX/ALUMINUM HYD/SIMETH 30 ML ORAL.SUSP PO SCH ×9 (00:06→23:44)
[2017-05-17] MEDS: PIPERACILLIN/TAZOBACTAM 3.375 GM in IV NORMAL SALINE 50ML 50 ML IV SCH ×5 (00:07→23:40)
[2017-05-17] MEDS: IV NORMAL SALINE 1000ML BAG 1,000 ML IV SCH ×3 (00:09→21:06)
[2017-05-17 04:00] LABS: BASO # 0.1 x10^3/uL (0.0-0.2); BASO % 0 % (0-3); EOS % 3 % (0-3); HEMATOCRIT 33.4 % (39.0-53.0); HEMOGLOBIN 10.5 g/dL (13.0-17.5); LYMPH # 47.4 x10^3/uL (1.0-4.8); LYMPH % 87 % (24-48); MEAN CORPUSCULAR HEMOGLOBIN 28 pg (25-35); MEAN CORPUSCULAR HGB CONC 31 g/dL (31-37); MEAN CORPUSCULAR VOLUME 91 fL (79-100); MONO % 5 % (0-9); NEUT % 5 % (31-73); PLATELET COUNT 183 x10^3/uL (140-400); RED BLOOD COUNT 3.68 x10^6/uL (4.30-5.70); RED CELL DISTRIBUTION WIDTH 19.5 % (11.5-14.5)
[2017-05-17 04:40] LABS: CALCIUM 8.6 mg/dL (8.5-10.1); CREATININE 1.2 mg/dL (0.7-1.3); GFR 58.9; POTASSIUM 4.7 mmol/L (3.5-5.1)
[2017-05-17 04:41] LABS: WHITE BLOOD COUNT 54.3 x10^3/uL (4.0-11.0)
[2017-05-17] MEDS: IPRATRPIUM/ALBUTEROL 0.5/2.5MG 3 ML NEBU. NEB SCH ×2 (06:55→19:50)
[2017-05-17] MEDS: BUDESONIDE 0.5 MG/2 ML NEBU. NEB SCH ×2 (06:55→19:50)
[2017-05-17 07:00] VITALS: BP 128/68
[2017-05-17] MEDS: LACTOBACILLUS ACIDOPH & BULGAR 1 TABLET. PO SCH ×2 (07:49→16:50)
[2017-05-17] MEDS: FERROUS SULFATE 325 MG TABLET. PO SCH (07:49)
[2017-05-17] MEDS: VANCOMYCIN 125 MG/2.5 ML ORAL SOLUTION. PO SCH ×2 (09:18→12:28)
[2017-05-17] MEDS: ASCORBIC ACID 500 MG TABLET PO SCH ×2 (09:18→20:58)
[2017-05-17] MEDS: FAMOTIDINE 20 MG TABLET. PO SCH (09:18)
[2017-05-17] MEDS: TAMSULOSIN 0.4 MG CAP.ER.24H. PO SCH (09:18)
[2017-05-17] MEDS: FINASTERIDE 5 MG TABLET. PO SCH (09:18)
[2017-05-17] MEDS: LIDOCAINE (700MG/PATCH) PATCH. TD SCH (09:19)
[2017-05-17] MEDS: DOCUSATE SODIUM 100 MG CAPSULE. PO SCH (09:19)
--- NOTE | 2017-05-17 09:39 | PDOC ---
Infectious Disease Note Subjective Subjective Drainage of fluid collection was not done, d/t eating Loose stools. Denies cramping/abd pain/N/V No fever ROS ROS CV: Denies chest pain RESP: Denies shortness of air, cough Vital Sign Vital Signs Vital Signs Date Time Temp Pulse Resp B/P (MAP) Pulse Ox O2 Delivery O2 Flow Rate FiO2 05/17/17 07:00 97.8 84 18 128/68 (88) 93 Room Air 97.8 Physical Exam PHYSICAL EXAM GENERAL: Up in chair, NAD LUNGS: Clear HEART: S1S2 ABD: Soft, NT, BS present EXT: BLE edema, no cyanosis C[employer]: Alert, responding appropriately SKIN: Macular-type rash torso/back- fading Labs Lab Laboratory Tests Test 05/16/17 15:10 05/17/17 03:40 Clostridium difficile Toxin (PCR) Negative (Negative) White Blood Count 54.3 x10^3/uL (4.0-11.0) Red Blood Count 3.68 x10^6/uL (4.30-5.70) Hemoglobin 10.5 g/dL (13.0-17.5) Hematocrit 33.4 % (39.0-53.0) Mean Corpuscular Volume 91 fL (79-100) Mean Corpuscular Hemoglobin 28 pg (25-35) Mean Corpuscular Hemoglobin Concent 31 g/dL (31-37) Red Cell Distribution Width 19.5 % (11.5-14.5) Platelet Count 183 x10^3/uL (140-400) Neutrophils (%) (Auto) 5 % (31-73) Lymphocytes (%) (Auto) 87 % (24-48) Monocytes (%) (Auto) 5 % (0-9) Eosinophils (%) (Auto) 3 % (0-3) Basophils (%) (Auto) 0 % (0-3) Neutrophils # (Auto) 2.7 x10^3uL (1.8-7.7) Lymphocytes # (Auto) 47.4 x10^3/uL (1.0-4.8) Monocytes # (Auto) 2.7 x10^3/uL (0.0-1.1) Eosinophils # (Auto) 1.5 x10^3/uL (0.0-0.7) Basophils # (Auto) 0.1 x10^3/uL (0.0-0.2) Sodium Level 141 mmol/L (136-145) Potassium Level 4.7 mmol/L (3.5-5.1) Chloride Level 106 mmol/L (98-107) Carbon Dioxide Level 25 mmol/L (21-32) Anion Gap 10 (6-14) Blood Urea Nitrogen 12 mg/dL (8-26) Creatinine 1.2 mg/dL (0.7-1.3) Estimated GFR (Cockcroft-Gault) 58.9 Glucose Level 75 mg/dL (70-99) Calcium Level 8.6 mg/dL (8.5-10.1) Micro BLOOD CULTURE Preliminary NO GROWTH AFTER 2 DAY URINE CULTURE RES 1 Final Comment Greater than 2 organisms recovered, none predominant. Objective Assessment Leukocytosis, trending up, c. diff negative Fluid collections on CT Pruritic rash- resolving Recent retroperitoneal bleed, status post coiling done. Respiratory failure. Cerebrovascular accident. Dysphagia. Small right pleural effusion & atelectasias Plan Plan of Care Zyvox, Zosyn and zohaib and po vanc C diff negative, Await IR Attending Co-Sign The patient was seen and interviewed as well as examined at the bedside. The chart was reviewed. The case was discussed. Agree with the plan of care. LISSETH ONEIL APRN May 17, 2017 09:39 WILFRID AGUILAR MD May 17, 2017 11:51
[2017-05-17 11:00] VITALS: BP 129/65
--- NOTE | 2017-05-17 13:21 | CONS ---
DATE OF CONSULTATION: 05/17/2017 HISTORY OF PRESENT ILLNESS: This is a 76-year-old right-handed male known to me as I have seen him at the [facility] and then at [facility]. He was transferred from [facility] to [facility] for further evaluation and treatment of elevated WBC count, which was 17,000 last week and it went up to 30,000 over the weekend. The patient remained asymptomatic without any significant abdominal pain or any fever. He has been participating in physical therapy and occupational therapy and making good progress and has been walking with a roller walker and we even thought of letting him go home with home health or outpatient therapy followup early next week. The patient, since admission to [facility], had further evaluation and his white cell count even went up to 50,000. He was seen by Hematology/Oncology and felt it might be more from stress reaction as he had gone through so many problems in the last 5-6 weeks. He was initially hospitalized on 04/02/2017 with retroperitoneal bleed, had microcoil embolization of right iliolumbar lumbar artery, was also treated for sepsis, respiratory failure and he was transferred to [facility] where a CT scan of the brain revealed cerebrovascular accident. He presented with right foot dorsiflexor muscle weakness. The patient, prior to the onset of retroperitoneal bleeding, was on anticoagulation with Coumadin for atrial fibrillation. The patient also with known coronary artery disease, hyperlipidemia, chronic obstructive pulmonary disease, diverticulosis, degenerative joint disease, benign prostatic hypertrophy, hypothyroidism, status post permanent pacemaker placement, also arthroscope surgery to his knees, cataract surgery. HE HAS KNOWN ALLERGIES TO SULFA, AMIODARONE, BUDESONIDE, FLUTICASONE, LEVOFLOXACIN, MONTELUKAST, SOLU-MEDROL. 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 The patient had some lower back pain from degenerative disk disease of lumbar vertebrae and also right leg pain where he had cellulitis after animal bit him earlier this year. The patient had periods of confusion during his hospitalization at [facility] and [facility]. PHYSICAL EXAMINATION: Today revealed an elderly male. He is alert, oriented to time, place, person and circumstance and follows commands appropriately, moves all 4 extremities voluntarily where he had 4/5 to 4+/5 grade muscle strength with relatively increased weakness in right foot dorsiflexor muscles. Deep tendon reflexes are decreased overall with absent ankle jerks and he had crepitus on range of motion of both knee joints without any obvious knee joint effusion and he had localized tenderness to palpation over the sacroiliac joint area and straight leg raising test is negative bilaterally. He requires help with bed mobility and transfers. Once up, he can walk using a roller walker. He gets tired easily. ASSESSMENT: Mobility and self-care limitation in a patient with recent onset of cerebrovascular accident with mild right foot dorsiflexor muscle weakness. The patient with chronic obstructive pulmonary disease, status post recent respiratory failure after he had retroperitoneal bleeding, status post arterial embolization, also recent sepsis, degenerative joint disease of his knees. The patient with known coronary artery disease, atrial fibrillation, hyperlipidemia, benign prostatic hypertrophy, hypothyroidism, degenerative joint disease of his knees and diverticulosis. RECOMMENDATIONS: Agree with the plan for physical therapy and occupational therapy and speech pathology and hopefully home when medically stable with home health or outpatient followup. Dr. Ratliff, I appreciate asking me to participate in the care of this interesting patient. I will be glad to follow him with you as needed for his rehabilitation. DAO CROWLEY MD DR: YANA/oz JOB#: [id number] / [id number]
--- NOTE | 2017-05-17 13:47 | PDOC ---
PROGRESS NOTES Chief Complaint Chief Complaint Leukocytosis History of Present Illness History of Present Illness Pt resting in chair NAD Denies any pain Vitals Vitals Vital Signs Date Time Temp Pulse Resp B/P (MAP) Pulse Ox O2 Delivery O2 Flow Rate FiO2 05/17/17 11:00 97.7 84 18 129/65 (86) 94 Room Air 97.7 Physical Exam General: Alert, Oriented X3, Cooperative, No acute distress Heart: No murmurs, Other (sl irreg) Lungs: Clear, Other (No RRW) Abdomen: Normal bowel sounds, No tenderness Extremities: No clubbing, No edema Skin: No rashes, No significant lesion Labs LABS Laboratory Tests Test 05/16/17 15:10 05/17/17 03:40 Clostridium difficile Toxin (PCR) Negative (Negative) White Blood Count 54.3 x10^3/uL (4.0-11.0) Red Blood Count 3.68 x10^6/uL (4.30-5.70) Hemoglobin 10.5 g/dL (13.0-17.5) Hematocrit 33.4 % (39.0-53.0) Mean Corpuscular Volume 91 fL (79-100) Mean Corpuscular Hemoglobin 28 pg (25-35) Mean Corpuscular Hemoglobin Concent 31 g/dL (31-37) Red Cell Distribution Width 19.5 % (11.5-14.5) Platelet Count 183 x10^3/uL (140-400) Neutrophils (%) (Auto) 5 % (31-73) Lymphocytes (%) (Auto) 87 % (24-48) Monocytes (%) (Auto) 5 % (0-9) Eosinophils (%) (Auto) 3 % (0-3) Basophils (%) (Auto) 0 % (0-3) Neutrophils # (Auto) 2.7 x10^3uL (1.8-7.7) Lymphocytes # (Auto) 47.4 x10^3/uL (1.0-4.8) Monocytes # (Auto) 2.7 x10^3/uL (0.0-1.1) Eosinophils # (Auto) 1.5 x10^3/uL (0.0-0.7) Basophils # (Auto) 0.1 x10^3/uL (0.0-0.2) Sodium Level 141 mmol/L (136-145) Potassium Level 4.7 mmol/L (3.5-5.1) Chloride Level 106 mmol/L (98-107) Carbon Dioxide Level 25 mmol/L (21-32) Anion Gap 10 (6-14) Blood Urea Nitrogen 12 mg/dL (8-26) Creatinine 1.2 mg/dL (0.7-1.3) Estimated GFR (Cockcroft-Gault) 58.9 Glucose Level 75 mg/dL (70-99) Calcium Level 8.6 mg/dL (8.5-10.1) Review of Systems Review of Systems Weakness Assessment and Plan Assessmemt and Plan Leukocytosis Plan: -Continue abx -Continue fluids -Recheck labs -PT/OT -Continue home meds -Check abd mass Problems: Comment Review of Relevant I have reviewed the following items sarbjit (where applicable) has been applied. Labs Laboratory Tests Test 05/16/17 06:25 05/16/17 15:10 05/17/17 03:40 White Blood Count 50.4 x10^3/uL (4.0-11.0) 54.3 x10^3/uL (4.0-11.0) Red Blood Count 3.66 x10^6/uL (4.30-5.70) 3.68 x10^6/uL (4.30-5.70) Hemoglobin 10.4 g/dL (13.0-17.5) 10.5 g/dL (13.0-17.5) Hematocrit 33.3 % (39.0-53.0) 33.4 % (39.0-53.0) Mean Corpuscular Volume 91 fL (79-100) 91 fL (79-100) Mean Corpuscular Hemoglobin 28 pg (25-35) 28 pg (25-35) Mean Corpuscular Hemoglobin Concent 31 g/dL (31-37) 31 g/dL (31-37) Red Cell Distribution Width 19.1 % (11.5-14.5) 19.5 % (11.5-14.5) Platelet Count 184 x10^3/uL (140-400) 183 x10^3/uL (140-400) Neutrophils (%) (Auto) 8 % (31-73) 5 % (31-73) Lymphocytes (%) (Auto) 84 % (24-48) 87 % (24-48) Monocytes (%) (Auto) 7 % (0-9) 5 % (0-9) Eosinophils (%) (Auto) 1 % (0-3) 3 % (0-3) Basophils (%) (Auto) 0 % (0-3) 0 % (0-3) Neutrophils # (Auto) 4.1 x10^3uL (1.8-7.7) 2.7 x10^3uL (1.8-7.7) Lymphocytes # (Auto) 42.4 x10^3/uL (1.0-4.8) 47.4 x10^3/uL (1.0-4.8) Monocytes # (Auto) 3.3 x10^3/uL (0.0-1.1) 2.7 x10^3/uL (0.0-1.1) Eosinophils # (Auto) 0.5 x10^3/uL (0.0-0.7) 1.5 x10^3/uL (0.0-0.7) Basophils # (Auto) 0.1 x10^3/uL (0.0-0.2) 0.1 x10^3/uL (0.0-0.2) Sodium Level 137 mmol/L (136-145) 141 mmol/L (136-145) Potassium Level 5.7 mmol/L (3.5-5.1) 4.7 mmol/L (3.5-5.1) Chloride Level 105 mmol/L (98-107) 106 mmol/L (98-107) Carbon Dioxide Level 25 mmol/L (21-32) 25 mmol/L (21-32) Anion Gap 7 (6-14) 10 (6-14) Blood Urea Nitrogen 14 mg/dL (8-26) 12 mg/dL (8-26) Creatinine 1.2 mg/dL (0.7-1.3) 1.2 mg/dL (0.7-1.3) Estimated GFR (Cockcroft-Gault) 58.9 58.9 Glucose Level 101 mg/dL (70-99) 75 mg/dL (70-99) Calcium Level 8.5 mg/dL (8.5-10.1) 8.6 mg/dL (8.5-10.1) Clostridium difficile Toxin (PCR) Negative (Negative) Laboratory Tests Test 05/16/17 15:10 05/17/17 03:40 Clostridium difficile Toxin (PCR) Negative (Negative) White Blood Count 54.3 x10^3/uL (4.0-11.0) Red Blood Count 3.68 x10^6/uL (4.30-5.70) Hemoglobin 10.5 g/dL (13.0-17.5) Hematocrit 33.4 % (39.0-53.0) Mean Corpuscular Volume 91 fL (79-100) Mean Corpuscular Hemoglobin 28 pg (25-35) Mean Corpuscular Hemoglobin Concent 31 g/dL (31-37) Red Cell Distribution Width 19.5 % (11.5-14.5) Platelet Count 183 x10^3/uL (140-400) Neutrophils (%) (Auto) 5 % (31-73) Lymphocytes (%) (Auto) 87 % (24-48) Monocytes (%) (Auto) 5 % (0-9) Eosinophils (%) (Auto) 3 % (0-3) Basophils (%) (Auto) 0 % (0-3) Neutrophils # (Auto) 2.7 x10^3uL (1.8-7.7) Lymphocytes # (Auto) 47.4 x10^3/uL (1.0-4.8) Monocytes # (Auto) 2.7 x10^3/uL (0.0-1.1) Eosinophils # (Auto) 1.5 x10^3/uL (0.0-0.7) Basophils # (Auto) 0.1 x10^3/uL (0.0-0.2) Sodium Level 141 mmol/L (136-145) Potassium Level 4.7 mmol/L (3.5-5.1) Chloride Level 106 mmol/L (98-107) Carbon Dioxide Level 25 mmol/L (21-32) Anion Gap 10 (6-14) Blood Urea Nitrogen 12 mg/dL (8-26) Creatinine 1.2 mg/dL (0.7-1.3) Estimated GFR (Cockcroft-Gault) 58.9 Glucose Level 75 mg/dL (70-99) Calcium Level 8.6 mg/dL (8.5-10.1) Microbiology 05/14/17 Blood Culture - Preliminary, Resulted NO GROWTH AFTER 3 DAYS 05/14/17 Urine Culture - Final, Complete 05/14/17 Urine Culture Result 1 (EDA) - Final, Complete Medications Current Medications Iohexol (Omnipaque 240 Mg/ml) 30 ml 1X ONCE PO Last administered on 05/14/17 12:33; Start 05/14/17 at 11:45; Stop 05/14/17 at 11:46; Status DC Iohexol (Omnipaque 300 Mg/ml) 75 ml 1X ONCE IV Last administered on 05/14/17 12:33; Start 05/14/17 at 11:45; Stop 05/14/17 at 11:46; Status DC Info (Do NOT chart on this entry -- for MONITORING) 1 each PRN DAILY PRN MC SEE COMMENTS; Start 05/14/17 at 11:45; Stop 05/16/17 at 11:44; Status DC Bisacodyl (Dulcolax Tab) 10 mg PRN DAILY PRN PO CONSTIPATION; Start 05/14/17 at 12:00 Budesonide (Pulmicort) 0.5 mg RTBID NEB Last administered on 05/17/17 06:55; Start 05/14/17 at 20:00 Docusate Sodium (Colace) 100 mg DAILY PO Last administered on 05/15/17 08:45; Start 05/14/17 at 13:00 Famotidine (Pepcid) 20 mg DAILY PO Last administered on 05/17/17 09:18; Start 05/14/17 at 13:00 Finasteride (Proscar) 5 mg DAILY PO ; Start 05/15/17 at 09:00; Status UNV Finasteride (Proscar) 5 mg DAILY PO Last administered on 05/17/17 09:18; Start 05/14/17 at 13:00 Albuterol/ Ipratropium (Duoneb) 3 ml RTBID NEB Last administered on 05/17/17 06:55; Start 05/14/17 at 20:00 Nitroglycerin (Nitrostat) 0.4 mg PRN QID PRN SL chest pain; Start 05/14/17 at 12:00 Piperacillin Sod/ Tazobactam Sod (Zosyn) 3.375 gm Q6HRS IV ; Start 05/14/17 at 12:00; Status UNV Tamsulosin HCl (Flomax) 0.8 mg DAILY PO Last administered on 05/17/17 09:18; Start 05/14/17 at 13:00 Trazodone HCl (Desyrel) 50 mg HS PO Last administered on 05/16/17 20:38; Start 05/14/17 at 21:00 Albuterol Sulfate (Ventolin Neb Soln) 2.5 mg PRN Q4HRS PRN NEB SHORTNESS OF BREATH; Start 05/14/17 at 12:30 Ascorbic Acid (Vitamin C) 500 mg BID PO Last administered on 05/17/17 09:18; Start 05/14/17 at 21:00 Atorvastatin Calcium (Lipitor) 80 mg QHS PO Last administered on 05/16/17 20: 38; Start 05/14/17 at 21:00 Ferrous Sulfate (Feosol) 325 mg [id number] PO Last administered on 05/17/17 07 :49; Start 05/14/17 at 13:00 Lactobacillus Acidophilus (Bacid, Camila-Bid) 1 tab BIDAC PO Last administered on 05/17/17 07:49; Start 05/14/17 at 16:30 Al Hydroxide/Mg Hydroxide (Mylanta Plus Xs) 30 ml Q3HRS PO Last administered on 05/17/17 12:19; Start 05/14/17 at 15:00 Magnesium Hydroxide (Milk Of Magnesia) 2,400 mg PRN DAILY PRN PO CONSTIPATION; Start 05/14/17 at 12:45 Ondansetron HCl (Zofran Odt) 4 mg PRN Q6HRS PRN PO NAUSEA/VOMITING Last administered on 05/15/17 10:21; Start 05/14/17 at 12:45 Piperacillin Sod/ Tazobactam Sod 3.375 gm/Sodium Chloride 50 ml @ 100 mls/hr Q6HRS IV Last administered on 05/17/17 12:19; Start 05/14/17 at 18:00 Vancomycin HCl 125 mg [id number] PO Last administered on 05/17/17 12:28; Start at 17:00; Stop 05/17/17 at 12:45; Status DC Sodium Chloride 1,000 ml @ 100 mls/hr Q10H IV Last administered on 05/17/17 12:19; Start 05/14/17 at 14:00 Lidocaine (Lidoderm) 1 patch DAILY TD Last administered on 05/15/17 09:12; Start 05/14/17 at 16:15 Lidocaine (Lidoderm) 1 patch DAILY TD ; Start 05/15/17 at 09:00; Status UNV Acetaminophen (Tylenol) 650 mg PRN Q8HRS PRN PO MILD PAIN; Start 05/14/17 at 17 :15 Enoxaparin Sodium (Lovenox 40mg Syringe) 40 mg Q24H SQ Last administered on 20:40; Start 05/14/17 at 21:00 Barium Sulfate (Varibar Thin Liquid Apple) 148 gm 1X ONCE PO Last administered on 05/15/17 13:41; Start 05/15/17 at 11:00; Stop 05/15/17 at 11:01 ; Status DC Dexamethasone Sodium Phosphate (Decadron) 4 mg 1X ONCE IV Last administered on 05/15/17 11:32; Start 05/15/17 at 11:30; Stop 05/15/17 at 11:31; Status DC Linezolid 300 ml @ 300 mls/hr Q12HR IV Last administered on 05/17/17 09:18; Start 05/15/17 at 15:00 Micafungin Sodium 100 mg/Dextrose 100 ml @ 100 mls/hr Q24H IV Last administered on 05/16/17 14:49; Start 05/16/17 at 15:00 Sodium Polystyrene Sulfonate (Kayexalate) 30 gm 1X ONCE PO Last administered on 05/16/17 14:43; Start 05/16/17 at 14:45; Stop 05/16/17 at 14:46; Status DC Diphenhydramine HCl (Benadryl) 50 mg PRN Q8HRS PRN PO ITCHING Last administered on 05/16/17 20:37; Start 05/16/17 at 20:00 Active Scripts Active Reported Zosyn 3.375 Gram Vial (Piperacillin Sodium/Tazobactam) 3.375 Gm Vial 3.375 Gm IV Q6HRS Zofran (Ondansetron Hcl) 4 Mg Tablet 4 Mg PO Q6HRS PRN Trazodone Hcl 50 Mg Tablet 50 Mg PO HS Duoneb 0.5-3(2.5) Mg/3 Ml (Albuterol/Ipratropium) 3 Ml Ampul.neb 3 Ml NEB BID Diphenhydramine Hcl 50 Mg Capsule 25 Mg PO Q6HRS Vitamin C (Ascorbic Acid) 500 Mg Capsule.er 500 Mg PO BID Acidophilus (Lactobacillus Acidophilus) 1 Each Capsule 1 Cap PO BIDAC Proscar (Finasteride) 5 Mg Tablet 5 Mg PO DAILY Pulmicort (Budesonide) 0.5 Mg/2 Ml Ampul.neb 0.5 Mg IH BID Proair Hfa Inhaler (Albuterol Sulfate) 8.5 Gm Hfa.aer.ad 2 Puff INH PRN Q4HRS PRN Dulcolax (Bisacodyl) 5 Mg Tablet.dr 10 Mg PO PRN DAILY PRN Milk Of Magnesia (Magnesium Hydroxide) 2,400 Mg/10 Ml Oral.susp 2,400 Mg PO PRN PRN Mintox Plus Tablet Chewable (Mag Hydrox/Al Hydrox/Simeth) 1 Each Tab.chew 1 Each PO Q3HRS Docusate Sodium 100 Mg Capsule 100 Mg PO PRN Acetaminophen 500 Mg Tablet 650 Mg PO PRN Tamsulosin Hcl 0.4 Mg Cap.er.24h 0.8 Mg PO DAILY Atorvastatin Calcium 80 Mg Tablet 80 Mg PO HS Ferrous Sulfate 220 Mg/5 Ml Elixir 325 Mg PO DAILY Famotidine 20 Mg Tablet 20 Mg PO DAILY Augmentin 875-125 Tablet (Amoxicillin/Potassium Clav) 1 Each Tablet 1 Tab PO BID Proair Hfa (Albuterol Sulfate) 8.5 Gm Hfa.aer.ad 9 Gm IH NITROGLYCERIN SubLingual (Nitroglycerin) 0.4 Mg Tab.subl 1 Tab SL UD Coumadin (Warfarin Sodium) 3 Mg Tablet 1 Tab PO DAILY Proair Hfa Inhaler (Albuterol Sulfate) 8.5 Gm Hfa.aer.ad 1-2 Inh IH Q4-6 HRS PRN Lipitor (Atorvastatin Calcium) 80 Mg Tablet 80 Mg PO DAILY Vitals/I & O Vital Sign - Last 24 Hours 05/16/17 05/16/17 05/16/17 05/16/17 15:00 19:00 19:43 19:44 Temp 98.1 98.5 98.1 98.5 Pulse 80 83 Resp 16 20 B/P (MAP) 128/68 (88) 125/67 (86) Pulse Ox 98 92 97 97 O2 Delivery Room Air Room Air Room Air Room Air 05/16/17 05/16/17 05/17/17 05/17/17 20:10 23:00 03:00 06:55 Temp 98.7 98.7 Pulse 84 Resp 20 B/P (MAP) 107/65 (79) Pulse Ox 93 94 O2 Delivery Room Air Room Air Room Air 05/17/17 05/17/17 05/17/17 07:00 07:30 11:00 Temp 97.8 97.7 97.8 97.7 Pulse 84 84 Resp 18 18 B/P (MAP) 128/68 (88) 129/65 (86) Pulse Ox 93 94 O2 Delivery Room Air Room Air Room Air Intake and Output 05/16/17 05/16/17 05/17/17 15:00 23:00 07:00 Intake Total 540 ml 1500 ml Output Total 400 ml Balance 140 ml 1500 ml Nutrition Consultation Dietary Evaluation: Recommendations by RD: Increase Calorie Intake, Protein supplementation Comments: ensure tid Expected Outcomes/Goals: to meet > 75% est nutr needs Interpretation of weight loss: >5% in 1 month Malnutrition Findings: Weight Status: Appropriate Fluid Accumulation (Non-Severe: Mild depletion ABBY HAMILTON III DO May 17, 2017 13:47
[2017-05-17 15:00] VITALS: BP 116/59
[2017-05-17] MEDS: MICAFUNGIN 100 MG in IV DEXTROSE 5% 100 ML IV SCH (15:16)
[2017-05-17] MEDS: ALBUTEROL SULFATE 2.5 MG/3 ML NEBU. NEB PRN (16:10)
[2017-05-17 19:00] VITALS: BP 125/83
[2017-05-17] MEDS: ATORVASTATIN CALCIUM 40 MG TABLET. PO SCH (20:58)
[2017-05-17] MEDS: traZODone 50 MG TABLET. PO SCH (20:58)
[2017-05-17] MEDS: ENOXAPARIN 40 MG/0.4 ML SYRINGE. SQ SCH (21:00)
[2017-05-17 23:00] VITALS: BP 139/69
[2017-05-18 03:00] VITALS: BP 134/77
[2017-05-18] MEDS: MAG HYDROX/ALUMINUM HYD/SIMETH 30 ML ORAL.SUSP PO SCH ×6 (03:00→12:00)
[2017-05-18 05:04] LABS: BASO # 0.1 x10^3/uL (0.0-0.2); BASO % 0 % (0-3); EOS % 4 % (0-3); HEMATOCRIT 32.9 % (39.0-53.0); HEMOGLOBIN 10.5 g/dL (13.0-17.5); LYMPH % 86 % (24-48); MEAN CORPUSCULAR HEMOGLOBIN 29 pg (25-35); MEAN CORPUSCULAR HGB CONC 32 g/dL (31-37); MEAN CORPUSCULAR VOLUME 91 fL (79-100); MONO % 6 % (0-9); NEUT % 4 % (31-73); PLATELET COUNT 167 x10^3/uL (140-400); RED BLOOD COUNT 3.63 x10^6/uL (4.30-5.70); RED CELL DISTRIBUTION WIDTH 18.9 % (11.5-14.5)
[2017-05-18 05:11] LABS: WHITE BLOOD COUNT 69.5 x10^3/uL (4.0-11.0)
[2017-05-18 05:27] LABS: CALCIUM 7.9 mg/dL (8.5-10.1); GFR 72.6; POTASSIUM 4.4 mmol/L (3.5-5.1)
[2017-05-18] MEDS: PIPERACILLIN/TAZOBACTAM 3.375 GM in IV NORMAL SALINE 50ML 50 ML IV SCH ×4 (06:02→23:09)
[2017-05-18 07:00] VITALS: BP 137/69
[2017-05-18] MEDS: BUDESONIDE 0.5 MG/2 ML NEBU. NEB SCH ×2 (07:09→20:04)
[2017-05-18] MEDS: IPRATRPIUM/ALBUTEROL 0.5/2.5MG 3 ML NEBU. NEB SCH ×2 (07:09→20:04)
[2017-05-18] MEDS: FERROUS SULFATE 325 MG TABLET. PO SCH (07:44)
[2017-05-18] MEDS: LACTOBACILLUS ACIDOPH & BULGAR 1 TABLET. PO SCH ×2 (07:44→16:43)
[2017-05-18] MEDS: DOCUSATE SODIUM 100 MG CAPSULE. PO SCH (08:51)
[2017-05-18] MEDS: FINASTERIDE 5 MG TABLET. PO SCH (09:23)
[2017-05-18] MEDS: TAMSULOSIN 0.4 MG CAP.ER.24H. PO SCH (09:23)
[2017-05-18] MEDS: ASCORBIC ACID 500 MG TABLET PO SCH ×2 (09:23→20:46)
[2017-05-18] MEDS: LIDOCAINE (700MG/PATCH) PATCH. TD SCH (09:24)
[2017-05-18] MEDS: FAMOTIDINE 20 MG TABLET. PO SCH (09:26)
[2017-05-18 10:09] LABS: % EOS 3 % (0-5); PLT ESTIMATE ADEQUATE (ADEQUATE)
[2017-05-18 10:10] LABS: SMUDGE CELLS PRESENT
[2017-05-18] MEDS: ONDANSETRON ODT 4 MG TAB.RAPDIS. PO PRN (10:20)
--- NOTE | 2017-05-18 10:38 | PDOC ---
Infectious Disease Note Subjective Subjective Confused and irritable, more so per daughter c/o abdominal fullness and not wanting to eat No fever Vital Sign Vital Signs Vital Signs Date Time Temp Pulse Resp B/P (MAP) Pulse Ox O2 Delivery O2 Flow Rate FiO2 05/18/17 08:00 Room Air 05/18/17 07:15 94 05/18/17 07:00 97.7 81 20 137/69 (91) 97.7 Physical Exam PHYSICAL EXAM GENERAL: Propped up in bed, NAD HENT: Oral cavity dry LUNGS: Clear HEART: S1S2 ABD: Soft, hyperactive BS, mildly tended EXT: BLE edema, no cyanosis MACHINE OPERATORS: Alert, confuse and irritable SKIN: without rash Labs Lab Laboratory Tests Test 05/18/17 04:12 White Blood Count 69.5 x10^3/uL (4.0-11.0) Red Blood Count 3.63 x10^6/uL (4.30-5.70) Hemoglobin 10.5 g/dL (13.0-17.5) Hematocrit 32.9 % (39.0-53.0) Mean Corpuscular Volume 91 fL (79-100) Mean Corpuscular Hemoglobin 29 pg (25-35) Mean Corpuscular Hemoglobin Concent 32 g/dL (31-37) Red Cell Distribution Width 18.9 % (11.5-14.5) Platelet Count 167 x10^3/uL (140-400) Neutrophils (%) (Auto) 4 % (31-73) Lymphocytes (%) (Auto) 86 % (24-48) Monocytes (%) (Auto) 6 % (0-9) Eosinophils (%) (Auto) 4 % (0-3) Basophils (%) (Auto) 0 % (0-3) Neutrophils # (Auto) 3.1 x10^3uL (1.8-7.7) Lymphocytes # (Auto) 60.0 x10^3/uL (1.0-4.8) Monocytes # (Auto) 3.8 x10^3/uL (0.0-1.1) Eosinophils # (Auto) 2.5 x10^3/uL (0.0-0.7) Basophils # (Auto) 0.1 x10^3/uL (0.0-0.2) Segmented Neutrophils % 9 % (35-66) Lymphocytes % 85 % (24-48) Monocytes % 3 % (0-10) Eosinophils % 3 % (0-5) Smudge Cells Present Platelet Estimate Adequate (ADEQUATE) Sodium Level 141 mmol/L (136-145) Potassium Level 4.4 mmol/L (3.5-5.1) Chloride Level 109 mmol/L (98-107) Carbon Dioxide Level 28 mmol/L (21-32) Anion Gap 4 (6-14) Blood Urea Nitrogen 13 mg/dL (8-26) Creatinine 1.0 mg/dL (0.7-1.3) Estimated GFR (Cockcroft-Gault) 72.6 Glucose Level 78 mg/dL (70-99) Calcium Level 7.9 mg/dL (8.5-10.1) Micro BLOOD CULTURE Preliminary NO GROWTH AFTER 3 DAY URINE CULTURE RES 1 Final Comment Greater than 2 organisms recovered, none predominant. Objective Assessment Leukocytosis, trending up, c. diff negative Fluid collections on CT Encephalopathy Pruritic rash- resolving Recent retroperitoneal bleed, status post coiling done. Respiratory failure. Cerebrovascular accident. Dysphagia. Small right pleural effusion & atelectasias Plan Plan of Care Zyvox, Zosyn and zohaib Await IR D/w daughter Attending Co-Sign The patient was seen and interviewed as well as examined at the bedside. The chart was reviewed. The case was discussed. Agree with the plan of care. d/w LISSETH Leigh APRN May 18, 2017 10:38 WILFRID AGUILAR MD May 18, 2017 11:05
[2017-05-18 11:00] VITALS: BP 127/63
[2017-05-18] MEDS: IV NORMAL SALINE 1000ML BAG 1,000 ML IV SCH ×2 (12:23→20:46)
[2017-05-18] MEDS ORDERED: MAG HYDROX/ALUMINUM HYD/SIMETH 30 ML ORAL.SUSP PO PRN (12:45)
--- NOTE | 2017-05-18 14:17 | PDOC ---
PROGRESS NOTES Chief Complaint Chief Complaint Leukocytosis History of Present Illness History of Present Illness Pt resting in chair NAD Expressed mild abdominal discomfort Vitals Vitals Vital Signs Date Time Temp Pulse Resp B/P (MAP) Pulse Ox O2 Delivery O2 Flow Rate FiO2 05/18/17 11:00 97.9 78 20 127/63 (84) 93 Room Air 97.9 Physical Exam General: Alert, Oriented X3, Cooperative, mild distress (Complains of abd pain) Heart: No murmurs, Other Lungs: Clear, Other (No RRW) Abdomen: Normal bowel sounds, Other (Mild abd pain) Extremities: No clubbing, No edema Skin: No rashes, No significant lesion Labs LABS Laboratory Tests Test 05/18/17 04:12 White Blood Count 69.5 x10^3/uL (4.0-11.0) Red Blood Count 3.63 x10^6/uL (4.30-5.70) Hemoglobin 10.5 g/dL (13.0-17.5) Hematocrit 32.9 % (39.0-53.0) Mean Corpuscular Volume 91 fL (79-100) Mean Corpuscular Hemoglobin 29 pg (25-35) Mean Corpuscular Hemoglobin Concent 32 g/dL (31-37) Red Cell Distribution Width 18.9 % (11.5-14.5) Platelet Count 167 x10^3/uL (140-400) Neutrophils (%) (Auto) 4 % (31-73) Lymphocytes (%) (Auto) 86 % (24-48) Monocytes (%) (Auto) 6 % (0-9) Eosinophils (%) (Auto) 4 % (0-3) Basophils (%) (Auto) 0 % (0-3) Neutrophils # (Auto) 3.1 x10^3uL (1.8-7.7) Lymphocytes # (Auto) 60.0 x10^3/uL (1.0-4.8) Monocytes # (Auto) 3.8 x10^3/uL (0.0-1.1) Eosinophils # (Auto) 2.5 x10^3/uL (0.0-0.7) Basophils # (Auto) 0.1 x10^3/uL (0.0-0.2) Segmented Neutrophils % 9 % (35-66) Lymphocytes % 85 % (24-48) Monocytes % 3 % (0-10) Eosinophils % 3 % (0-5) Smudge Cells Present Platelet Estimate Adequate (ADEQUATE) Sodium Level 141 mmol/L (136-145) Potassium Level 4.4 mmol/L (3.5-5.1) Chloride Level 109 mmol/L (98-107) Carbon Dioxide Level 28 mmol/L (21-32) Anion Gap 4 (6-14) Blood Urea Nitrogen 13 mg/dL (8-26) Creatinine 1.0 mg/dL (0.7-1.3) Estimated GFR (Cockcroft-Gault) 72.6 Glucose Level 78 mg/dL (70-99) Calcium Level 7.9 mg/dL (8.5-10.1) Review of Systems Review of Systems Mild abd pain Complained of weakness Slight nausea Assessment and Plan Assessmemt and Plan Leukocytosis Plan: -Awaiting IR to place drain -Continue abx (broad spectrum) -Possible fluids -Appreciate subspecialist input -Heme/Onc and ID are following -PT/OT Problems: Comment Review of Relevant I have reviewed the following items sarbjit (where applicable) has been applied. Labs Laboratory Tests Test 05/16/17 15:10 05/17/17 03:40 05/18/17 04:12 Clostridium difficile Toxin (PCR) Negative (Negative) White Blood Count 54.3 x10^3/uL (4.0-11.0) 69.5 x10^3/uL (4.0-11.0) Red Blood Count 3.68 x10^6/uL (4.30-5.70) 3.63 x10^6/uL (4.30-5.70) Hemoglobin 10.5 g/dL (13.0-17.5) 10.5 g/dL (13.0-17.5) Hematocrit 33.4 % (39.0-53.0) 32.9 % (39.0-53.0) Mean Corpuscular Volume 91 fL (79-100) 91 fL (79-100) Mean Corpuscular Hemoglobin 28 pg (25-35) 29 pg (25-35) Mean Corpuscular Hemoglobin Concent 31 g/dL (31-37) 32 g/dL (31-37) Red Cell Distribution Width 19.5 % (11.5-14.5) 18.9 % (11.5-14.5) Platelet Count 183 x10^3/uL (140-400) 167 x10^3/uL (140-400) Neutrophils (%) (Auto) 5 % (31-73) 4 % (31-73) Lymphocytes (%) (Auto) 87 % (24-48) 86 % (24-48) Monocytes (%) (Auto) 5 % (0-9) 6 % (0-9) Eosinophils (%) (Auto) 3 % (0-3) 4 % (0-3) Basophils (%) (Auto) 0 % (0-3) 0 % (0-3) Neutrophils # (Auto) 2.7 x10^3uL (1.8-7.7) 3.1 x10^3uL (1.8-7.7) Lymphocytes # (Auto) 47.4 x10^3/uL (1.0-4.8) 60.0 x10^3/uL (1.0-4.8) Monocytes # (Auto) 2.7 x10^3/uL (0.0-1.1) 3.8 x10^3/uL (0.0-1.1) Eosinophils # (Auto) 1.5 x10^3/uL (0.0-0.7) 2.5 x10^3/uL (0.0-0.7) Basophils # (Auto) 0.1 x10^3/uL (0.0-0.2) 0.1 x10^3/uL (0.0-0.2) Sodium Level 141 mmol/L (136-145) 141 mmol/L (136-145) Potassium Level 4.7 mmol/L (3.5-5.1) 4.4 mmol/L (3.5-5.1) Chloride Level 106 mmol/L (98-107) 109 mmol/L (98-107) Carbon Dioxide Level 25 mmol/L (21-32) 28 mmol/L (21-32) Anion Gap 10 (6-14) 4 (6-14) Blood Urea Nitrogen 12 mg/dL (8-26) 13 mg/dL (8-26) Creatinine 1.2 mg/dL (0.7-1.3) 1.0 mg/dL (0.7-1.3) Estimated GFR (Cockcroft-Gault) 58.9 72.6 Glucose Level 75 mg/dL (70-99) 78 mg/dL (70-99) Calcium Level 8.6 mg/dL (8.5-10.1) 7.9 mg/dL (8.5-10.1) Segmented Neutrophils % 9 % (35-66) Lymphocytes % 85 % (24-48) Monocytes % 3 % (0-10) Eosinophils % 3 % (0-5) Smudge Cells Present Platelet Estimate Adequate (ADEQUATE) Laboratory Tests Test 05/18/17 04:12 White Blood Count 69.5 x10^3/uL (4.0-11.0) Red Blood Count 3.63 x10^6/uL (4.30-5.70) Hemoglobin 10.5 g/dL (13.0-17.5) Hematocrit 32.9 % (39.0-53.0) Mean Corpuscular Volume 91 fL (79-100) Mean Corpuscular Hemoglobin 29 pg (25-35) Mean Corpuscular Hemoglobin Concent 32 g/dL (31-37) Red Cell Distribution Width 18.9 % (11.5-14.5) Platelet Count 167 x10^3/uL (140-400) Neutrophils (%) (Auto) 4 % (31-73) Lymphocytes (%) (Auto) 86 % (24-48) Monocytes (%) (Auto) 6 % (0-9) Eosinophils (%) (Auto) 4 % (0-3) Basophils (%) (Auto) 0 % (0-3) Neutrophils # (Auto) 3.1 x10^3uL (1.8-7.7) Lymphocytes # (Auto) 60.0 x10^3/uL (1.0-4.8) Monocytes # (Auto) 3.8 x10^3/uL (0.0-1.1) Eosinophils # (Auto) 2.5 x10^3/uL (0.0-0.7) Basophils # (Auto) 0.1 x10^3/uL (0.0-0.2) Segmented Neutrophils % 9 % (35-66) Lymphocytes % 85 % (24-48) Monocytes % 3 % (0-10) Eosinophils % 3 % (0-5) Smudge Cells Present Platelet Estimate Adequate (ADEQUATE) Sodium Level 141 mmol/L (136-145) Potassium Level 4.4 mmol/L (3.5-5.1) Chloride Level 109 mmol/L (98-107) Carbon Dioxide Level 28 mmol/L (21-32) Anion Gap 4 (6-14) Blood Urea Nitrogen 13 mg/dL (8-26) Creatinine 1.0 mg/dL (0.7-1.3) Estimated GFR (Cockcroft-Gault) 72.6 Glucose Level 78 mg/dL (70-99) Calcium Level 7.9 mg/dL (8.5-10.1) Microbiology 05/14/17 Blood Culture - Preliminary, Resulted NO GROWTH AFTER 4 DAYS 05/14/17 Urine Culture - Final, Complete 05/14/17 Urine Culture Result 1 (EDA) - Final, Complete Medications Current Medications Iohexol (Omnipaque 240 Mg/ml) 30 ml 1X ONCE PO Last administered on 05/14/17 12:33; Start 05/14/17 at 11:45; Stop 05/14/17 at 11:46; Status DC Iohexol (Omnipaque 300 Mg/ml) 75 ml 1X ONCE IV Last administered on 05/14/17 12:33; Start 05/14/17 at 11:45; Stop 05/14/17 at 11:46; Status DC Info (Do NOT chart on this entry -- for MONITORING) 1 each PRN DAILY PRN MC SEE COMMENTS; Start 05/14/17 at 11:45; Stop 05/16/17 at 11:44; Status DC Bisacodyl (Dulcolax Tab) 10 mg PRN DAILY PRN PO CONSTIPATION; Start 05/14/17 at 12:00 Budesonide (Pulmicort) 0.5 mg RTBID NEB Last administered on 05/18/17 07:09; Start 05/14/17 at 20:00 Docusate Sodium (Colace) 100 mg DAILY PO Last administered on 05/15/17 08:45; Start 05/14/17 at 13:00 Famotidine (Pepcid) 20 mg DAILY PO Last administered on 05/18/17 09:26; Start 05/14/17 at 13:00 Finasteride (Proscar) 5 mg DAILY PO ; Start 05/15/17 at 09:00; Status UNV Finasteride (Proscar) 5 mg DAILY PO Last administered on 05/18/17 09:23; Start 05/14/17 at 13:00 Albuterol/ Ipratropium (Duoneb) 3 ml RTBID NEB Last administered on 05/18/17 07:09; Start 05/14/17 at 20:00 Nitroglycerin (Nitrostat) 0.4 mg PRN QID PRN SL chest pain; Start 05/14/17 at 12:00 Piperacillin Sod/ Tazobactam Sod (Zosyn) 3.375 gm Q6HRS IV ; Start 05/14/17 at 12:00; Status UNV Tamsulosin HCl (Flomax) 0.8 mg DAILY PO Last administered on 05/18/17 09:23; Start 05/14/17 at 13:00 Trazodone HCl (Desyrel) 50 mg HS PO Last administered on 05/17/17 20:58; Start 05/14/17 at 21:00 Albuterol Sulfate (Ventolin Neb Soln) 2.5 mg PRN Q4HRS PRN NEB SHORTNESS OF BREATH Last administered on 05/17/17 16:10; Start 05/14/17 at 12:30 Ascorbic Acid (Vitamin C) 500 mg BID PO Last administered on 05/18/17 09:23; Start 05/14/17 at 21:00 Atorvastatin Calcium (Lipitor) 80 mg QHS PO Last administered on 05/17/17 20: 58; Start 05/14/17 at 21:00 Ferrous Sulfate (Feosol) 325 mg DAILYWBKFT PO Last administered on 05/18/17 07 :44; Start 05/14/17 at 13:00 Lactobacillus Acidophilus (Bacid, Camila-Bid) 1 tab BIDAC PO Last administered on 05/18/17 07:44; Start 05/14/17 at 16:30 Al Hydroxide/Mg Hydroxide (Mylanta Plus Xs) 30 ml Q3HRS PO Last administered on 05/18/17 06:02; Start 05/14/17 at 15:00; Stop 05/18/17 at 12:43; Status DC Magnesium Hydroxide (Milk Of Magnesia) 2,400 mg PRN DAILY PRN PO CONSTIPATION; Start 05/14/17 at 12:45 Ondansetron HCl (Zofran Odt) 4 mg PRN Q6HRS PRN PO NAUSEA/VOMITING Last administered on 05/18/17 10:20; Start 05/14/17 at 12:45 Piperacillin Sod/ Tazobactam Sod 3.375 gm/Sodium Chloride 50 ml @ 100 mls/hr Q6HRS IV Last administered on 05/18/17 12:23; Start 05/14/17 at 18:00 Vancomycin HCl 125 mg [id number] PO Last administered on 05/17/17 12:28; Start at 17:00; Stop 05/17/17 at 12:45; Status DC Sodium Chloride 1,000 ml @ 100 mls/hr Q10H IV Last administered on 05/18/17 12:23; Start 05/14/17 at 14:00 Lidocaine (Lidoderm) 1 patch DAILY TD Last administered on 05/15/17 09:12; Start 05/14/17 at 16:15 Lidocaine (Lidoderm) 1 patch DAILY TD ; Start 05/15/17 at 09:00; Status UNV Acetaminophen (Tylenol) 650 mg PRN Q8HRS PRN PO MILD PAIN; Start 05/14/17 at 17 :15 Enoxaparin Sodium (Lovenox 40mg Syringe) 40 mg Q24H SQ Last administered on 21:00; Start 05/14/17 at 21:00 Barium Sulfate (Varibar Thin Liquid Apple) 148 gm 1X ONCE PO Last administered on 05/15/17 13:41; Start 05/15/17 at 11:00; Stop 05/15/17 at 11:01 ; Status DC Dexamethasone Sodium Phosphate (Decadron) 4 mg 1X ONCE IV Last administered on 05/15/17 11:32; Start 05/15/17 at 11:30; Stop 05/15/17 at 11:31; Status DC Linezolid 300 ml @ 300 mls/hr Q12HR IV Last administered on 05/18/17 09:23; Start 05/15/17 at 15:00 Micafungin Sodium 100 mg/Dextrose 100 ml @ 100 mls/hr Q24H IV Last administered on 05/17/17 15:16; Start 05/16/17 at 15:00 Sodium Polystyrene Sulfonate (Kayexalate) 30 gm 1X ONCE PO Last administered on 05/16/17t 14:43; Start 05/16/17 at 14:45; Stop 05/16/17 at 14:46; Status DC Diphenhydramine HCl (Benadryl) 50 mg PRN Q8HRS PRN PO ITCHING Last administered on 05/16/17t 20:37; Start 05/16/17 at 20:00 Al Hydroxide/Mg Hydroxide (Mylanta Plus Xs) 30 ml PRN Q3HRS PRN PO HEARTBURN / GAS; Start 05/18/17 at 12:45 Active Scripts Active Reported Zosyn 3.375 Gram Vial (Piperacillin Sodium/Tazobactam) 3.375 Gm Vial 3.375 Gm IV Q6HRS Zofran (Ondansetron Hcl) 4 Mg Tablet 4 Mg PO Q6HRS PRN Trazodone Hcl 50 Mg Tablet 50 Mg PO HS Duoneb 0.5-3(2.5) Mg/3 Ml (Albuterol/Ipratropium) 3 Ml Ampul.neb 3 Ml NEB BID Diphenhydramine Hcl 50 Mg Capsule 25 Mg PO Q6HRS Vitamin C (Ascorbic Acid) 500 Mg Capsule.er 500 Mg PO BID Acidophilus (Lactobacillus Acidophilus) 1 Each Capsule 1 Cap PO BIDAC Proscar (Finasteride) 5 Mg Tablet 5 Mg PO DAILY Pulmicort (Budesonide) 0.5 Mg/2 Ml Ampul.neb 0.5 Mg IH BID Proair Hfa Inhaler (Albuterol Sulfate) 8.5 Gm Hfa.aer.ad 2 Puff INH PRN Q4HRS PRN Dulcolax (Bisacodyl) 5 Mg Tablet.dr 10 Mg PO PRN DAILY PRN Milk Of Magnesia (Magnesium Hydroxide) 2,400 Mg/10 Ml Oral.susp 2,400 Mg PO PRN PRN Mintox Plus Tablet Chewable (Mag Hydrox/Al Hydrox/Simeth) 1 Each Tab.chew 1 Each PO Q3HRS Docusate Sodium 100 Mg Capsule 100 Mg PO PRN Acetaminophen 500 Mg Tablet 650 Mg PO PRN Tamsulosin Hcl 0.4 Mg Cap.er.24h 0.8 Mg PO DAILY Atorvastatin Calcium 80 Mg Tablet 80 Mg PO HS Ferrous Sulfate 220 Mg/5 Ml Elixir 325 Mg PO DAILY Famotidine 20 Mg Tablet 20 Mg PO DAILY Augmentin 875-125 Tablet (Amoxicillin/Potassium Clav) 1 Each Tablet 1 Tab PO BID Proair Hfa (Albuterol Sulfate) 8.5 Gm Hfa.aer.ad 9 Gm IH NITROGLYCERIN SubLingual (Nitroglycerin) 0.4 Mg Tab.subl 1 Tab SL UD Coumadin (Warfarin Sodium) 3 Mg Tablet 1 Tab PO DAILY Proair Hfa Inhaler (Albuterol Sulfate) 8.5 Gm Hfa.aer.ad 1-2 Inh IH Q4-6 HRS PRN Lipitor (Atorvastatin Calcium) 80 Mg Tablet 80 Mg PO DAILY Vitals/I & O Vital Sign - Last 24 Hours 05/17/17 05/17/17 05/17/17 05/17/17 15:00 16:10 19:00 19:52 Temp 98.0 98.5 98.0 98.5 Pulse 77 80 Resp 20 18 B/P (MAP) 116/59 (78) 125/83 (97) Pulse Ox 93 95 94 95 O2 Delivery Room Air Room Air Room Air 05/17/17 05/17/17 05/18/17 05/18/17 20:50 23:00 03:00 07:00 Temp 98.0 97.7 97.7 98.0 97.7 97.7 Pulse 102 91 81 Resp 16 16 20 B/P (MAP) 139/69 (92) 134/77 (96) 137/69 (91) Pulse Ox 95 90 94 O2 Delivery Room Air Venturi Mask Room Air 05/18/17 05/18/17 05/18/17 05/18/17 07:14 07:15 08:00 11:00 Temp 97.9 97.9 Pulse 78 Resp 20 B/P (MAP) 127/63 (84) Pulse Ox 94 94 93 O2 Delivery Room Air Room Air Room Air Room Air Intake and Output 05/17/17 05/17/17 05/18/17 15:00 23:00 07:00 Intake Total 300 ml Output Total 350 ml Balance 300 ml -350 ml Nutrition Consultation Dietary Evaluation: Recommendations by RD: Increase Calorie Intake, Protein supplementation Comments: ensure tid Expected Outcomes/Goals: to meet > 75% est nutr needs Interpretation of weight loss: >5% in 1 month Malnutrition Findings: Weight Status: Appropriate Fluid Accumulation (Non-Severe: Mild depletion ABBY HAMILTON K III DO May 18, 2017 14:17
[2017-05-18] MEDS: MICAFUNGIN 100 MG in IV DEXTROSE 5% 100 ML IV SCH (14:44)
[2017-05-18 15:00] VITALS: BP_SYST 106; BP_SYST 144; BP_DIAS 48; BP_DIAS 65
[2017-05-18 19:00] VITALS: BP 103/67
[2017-05-18] MEDS: ENOXAPARIN 40 MG/0.4 ML SYRINGE. SQ SCH (19:23)
[2017-05-18] MEDS: traZODone 50 MG TABLET. PO SCH (20:46)
[2017-05-18] MEDS: ATORVASTATIN CALCIUM 40 MG TABLET. PO SCH (20:47)
[2017-05-18 23:00] VITALS: BP 122/68
[2017-05-19 04:22] LABS: BASO % 0 % (0-3); EOS % 4 % (0-3); HEMATOCRIT 34.7 % (39.0-53.0); HEMOGLOBIN 10.7 g/dL (13.0-17.5); LYMPH # 61.7 x10^3/uL (1.0-4.8); LYMPH % 86 % (24-48); MEAN CORPUSCULAR HEMOGLOBIN 28 pg (25-35); MEAN CORPUSCULAR HGB CONC 31 g/dL (31-37); MEAN CORPUSCULAR VOLUME 92 fL (79-100); MONO % 5 % (0-9); NEUT % 5 % (31-73); PLATELET COUNT 163 x10^3/uL (140-400); RED BLOOD COUNT 3.77 x10^6/uL (4.30-5.70); RED CELL DISTRIBUTION WIDTH 19.5 % (11.5-14.5)
[2017-05-19 04:26] LABS: WHITE BLOOD COUNT 71.8 x10^3/uL (4.0-11.0)
[2017-05-19 05:00] LABS: CALCIUM 8.3 mg/dL (8.5-10.1); GFR 72.6
[2017-05-19] MEDS: PIPERACILLIN/TAZOBACTAM 3.375 GM in IV NORMAL SALINE 50ML 50 ML IV SCH ×4 (05:19→21:34)
[2017-05-19] MEDS: IV NORMAL SALINE 1000ML BAG 1,000 ML IV SCH ×3 (05:20→21:34)
[2017-05-19 07:00] VITALS: BP 97/61
[2017-05-19] MEDS: IPRATRPIUM/ALBUTEROL 0.5/2.5MG 3 ML NEBU. NEB SCH ×2 (07:22→18:18)
[2017-05-19] MEDS: BUDESONIDE 0.5 MG/2 ML NEBU. NEB SCH ×2 (07:22→18:18)
--- NOTE | 2017-05-19 09:05 | PDOC ---
Infectious Disease Note Subjective Subjective pt feeling good, walked, no complaints ROS ROS GEN: Denies fevers, chills, sweats HEENT: Denies blurred vision, sore throat CV: Denies chest pain RESP: Denies shortness of air, cough GI: Denies n/v/d NEURO: Denies confusion, dizziness MSK: Denies weakness, joint pain/swelling Vital Sign Vital Signs Vital Signs Date Time Temp Pulse Resp B/P (MAP) Pulse Ox O2 Delivery O2 Flow Rate FiO2 05/19/17 07:22 96 Room Air 05/19/17 07:00 97.4 77 20 97/61 (73) 97.4 Physical Exam PHYSICAL EXAM GENERAL: NAD, Alert HEENT: PERRL, OC/OP NECK: Supple, no JVD, no LN LUNGS: Clear HEART: S1S2, no gallop, no murmur ABD: Soft, NT, no organomegaly, no rebound EXT: No edema, no cyanosis [employer]ING [employer]PER[employer]: Alert, oriented x 3, no focal neurologic deficit SKIN: No rash IV: ok Labs Lab Laboratory Tests Test 05/19/17 03:20 05/19/17 07:58 White Blood Count 71.8 x10^3/uL (4.0-11.0) Red Blood Count 3.77 x10^6/uL (4.30-5.70) Hemoglobin 10.7 g/dL (13.0-17.5) Hematocrit 34.7 % (39.0-53.0) Mean Corpuscular Volume 92 fL (79-100) Mean Corpuscular Hemoglobin 28 pg (25-35) Mean Corpuscular Hemoglobin Concent 31 g/dL (31-37) Red Cell Distribution Width 19.5 % (11.5-14.5) Platelet Count 163 x10^3/uL (140-400) Neutrophils (%) (Auto) 5 % (31-73) Lymphocytes (%) (Auto) 86 % (24-48) Monocytes (%) (Auto) 5 % (0-9) Eosinophils (%) (Auto) 4 % (0-3) Basophils (%) (Auto) 0 % (0-3) Neutrophils # (Auto) 3.4 x10^3uL (1.8-7.7) Lymphocytes # (Auto) 61.7 x10^3/uL (1.0-4.8) Monocytes # (Auto) 3.7 x10^3/uL (0.0-1.1) Eosinophils # (Auto) 3.0 x10^3/uL (0.0-0.7) Basophils # (Auto) 0.0 x10^3/uL (0.0-0.2) Sodium Level 140 mmol/L (136-145) Potassium Level 5.0 mmol/L (3.5-5.1) Chloride Level 108 mmol/L (98-107) Carbon Dioxide Level 26 mmol/L (21-32) Anion Gap 6 (6-14) Blood Urea Nitrogen 13 mg/dL (8-26) Creatinine 1.0 mg/dL (0.7-1.3) Estimated GFR (Cockcroft-Gault) 72.6 Glucose Level 79 mg/dL (70-99) Calcium Level 8.3 mg/dL (8.5-10.1) Glucose (Fingerstick) 80 mg/dL (70-99) Objective Assessment Leukocytosis, etiology unclear,, lymphocytosis, ? viral infection like mono, pertussis etc, (though less likely ), abscess in retroperitoneal appears less likely, lymphoma is also possible Recent Retroperitoneal bleed s/p embolization Recent Respiratory failure CVA Dysphagia Plan Plan of Care Zyvox, Zosyn and zohaib Await IR D/w daughter d/w dr Tristan AGUILAR,WILFRID Lau MD May 19, 2017 09:05
--- NOTE | 2017-05-19 09:17 | PDOC ---
Subjective: Subjective: Onc f/u- Leukocytosis Pt with confusion/ agitation over weekend. Planned aspiration of abd fluid today WBC continues climbing. Diarrhea but C diff neg No other changes to health Objective: Vital Signs: Vital Signs Date Time Temp Pulse Resp B/P (MAP) Pulse Ox O2 Delivery O2 Flow Rate FiO2 05/19/17 07:22 96 Room Air 05/19/17 07:00 97.4 77 20 97/61 (73) 97.4 Physical Exam: Extremities: Other (2+ edmea biltaeral LE) General: Alert, Other (disoriented) Lungs: Other (no respiratory distress) Skin: No rashes Labs/Imaging: CBC reviewed Smudge cells reported Hgb and plt stable C diff neg Assessment/Plan A/P: Intermittent lymphocytosis, unclear etiology- Infectious vs inflammatory stress response vs CLL Smudge cells reported 05/18, not previously. WBC recently with some normal levels , hgb and plt stable, which all typically do not support CLL. Rapidity of WBC increase also unusual for CLL. Plan: - Noted plans for aspiration of fluid today - On abx per ID - Peripheral flow cytometry for CLL ordered. Will take ~ 1 week to return. If DC 'ed before then, I will call family/ facility with results. D/w family, Alka Kasper, and Elisa. BONNIE LOZA DO May 19, 2017 09:17
--- NOTE | 2017-05-19 09:21 | PDOC ---
PROGRESS NOTES Subjective Subjective No new complaints. Objective Objective Vital Signs Date Time Temp Pulse Resp B/P (MAP) Pulse Ox O2 Delivery O2 Flow Rate FiO2 05/19/17 07:22 96 Room Air 05/19/17 07:00 97.4 77 20 97/61 (73) 97.4 Intake and Output 05/19/17 07:00 Intake Total 1720 ml Output Total 400 ml Balance 1320 ml Intake Oral 120 ml IV Total 1600 ml Output Urine Total 400 ml # Voids 3 # Bowel Movements 2 Physical Exam Physical Exam I spoke to his family,Jahaira and Stevo and Elisa. He got up and walked with roller walker under supervision and keeps his right foot in external rotation and no foot drag noted. Plan Plan of Care Agree with plans for aspiration of retroperitoneal lesion to determine the cause of his elevated WBC. Comment Review of Relevant I have reviewed the following items sarbjit (where applicable) has been applied. Labs Laboratory Tests Test 05/18/17 04:12 05/19/17 03:20 05/19/17 07:58 White Blood Count 69.5 x10^3/uL (4.0-11.0) 71.8 x10^3/uL (4.0-11.0) Red Blood Count 3.63 x10^6/uL (4.30-5.70) 3.77 x10^6/uL (4.30-5.70) Hemoglobin 10.5 g/dL (13.0-17.5) 10.7 g/dL (13.0-17.5) Hematocrit 32.9 % (39.0-53.0) 34.7 % (39.0-53.0) Mean Corpuscular Volume 91 fL (79-100) 92 fL (79-100) Mean Corpuscular Hemoglobin 29 pg (25-35) 28 pg (25-35) Mean Corpuscular Hemoglobin Concent 32 g/dL (31-37) 31 g/dL (31-37) Red Cell Distribution Width 18.9 % (11.5-14.5) 19.5 % (11.5-14.5) Platelet Count 167 x10^3/uL (140-400) 163 x10^3/uL (140-400) Neutrophils (%) (Auto) 4 % (31-73) 5 % (31-73) Lymphocytes (%) (Auto) 86 % (24-48) 86 % (24-48) Monocytes (%) (Auto) 6 % (0-9) 5 % (0-9) Eosinophils (%) (Auto) 4 % (0-3) 4 % (0-3) Basophils (%) (Auto) 0 % (0-3) 0 % (0-3) Neutrophils # (Auto) 3.1 x10^3uL (1.8-7.7) 3.4 x10^3uL (1.8-7.7) Lymphocytes # (Auto) 60.0 x10^3/uL (1.0-4.8) 61.7 x10^3/uL (1.0-4.8) Monocytes # (Auto) 3.8 x10^3/uL (0.0-1.1) 3.7 x10^3/uL (0.0-1.1) Eosinophils # (Auto) 2.5 x10^3/uL (0.0-0.7) 3.0 x10^3/uL (0.0-0.7) Basophils # (Auto) 0.1 x10^3/uL (0.0-0.2) 0.0 x10^3/uL (0.0-0.2) Segmented Neutrophils % 9 % (35-66) Lymphocytes % 85 % (24-48) Monocytes % 3 % (0-10) Eosinophils % 3 % (0-5) Smudge Cells Present Platelet Estimate Adequate (ADEQUATE) Sodium Level 141 mmol/L (136-145) 140 mmol/L (136-145) Potassium Level 4.4 mmol/L (3.5-5.1) 5.0 mmol/L (3.5-5.1) Chloride Level 109 mmol/L (98-107) 108 mmol/L (98-107) Carbon Dioxide Level 28 mmol/L (21-32) 26 mmol/L (21-32) Anion Gap 4 (6-14) 6 (6-14) Blood Urea Nitrogen 13 mg/dL (8-26) 13 mg/dL (8-26) Creatinine 1.0 mg/dL (0.7-1.3) 1.0 mg/dL (0.7-1.3) Estimated GFR (Cockcroft-Gault) 72.6 72.6 Glucose Level 78 mg/dL (70-99) 79 mg/dL (70-99) Calcium Level 7.9 mg/dL (8.5-10.1) 8.3 mg/dL (8.5-10.1) Glucose (Fingerstick) 80 mg/dL (70-99) Laboratory Tests Test 05/19/17 03:20 05/19/17 07:58 White Blood Count 71.8 x10^3/uL (4.0-11.0) Red Blood Count 3.77 x10^6/uL (4.30-5.70) Hemoglobin 10.7 g/dL (13.0-17.5) Hematocrit 34.7 % (39.0-53.0) Mean Corpuscular Volume 92 fL (79-100) Mean Corpuscular Hemoglobin 28 pg (25-35) Mean Corpuscular Hemoglobin Concent 31 g/dL (31-37) Red Cell Distribution Width 19.5 % (11.5-14.5) Platelet Count 163 x10^3/uL (140-400) Neutrophils (%) (Auto) 5 % (31-73) Lymphocytes (%) (Auto) 86 % (24-48) Monocytes (%) (Auto) 5 % (0-9) Eosinophils (%) (Auto) 4 % (0-3) Basophils (%) (Auto) 0 % (0-3) Neutrophils # (Auto) 3.4 x10^3uL (1.8-7.7) Lymphocytes # (Auto) 61.7 x10^3/uL (1.0-4.8) Monocytes # (Auto) 3.7 x10^3/uL (0.0-1.1) Eosinophils # (Auto) 3.0 x10^3/uL (0.0-0.7) Basophils # (Auto) 0.0 x10^3/uL (0.0-0.2) Sodium Level 140 mmol/L (136-145) Potassium Level 5.0 mmol/L (3.5-5.1) Chloride Level 108 mmol/L (98-107) Carbon Dioxide Level 26 mmol/L (21-32) Anion Gap 6 (6-14) Blood Urea Nitrogen 13 mg/dL (8-26) Creatinine 1.0 mg/dL (0.7-1.3) Estimated GFR (Cockcroft-Gault) 72.6 Glucose Level 79 mg/dL (70-99) Calcium Level 8.3 mg/dL (8.5-10.1) Glucose (Fingerstick) 80 mg/dL (70-99) Microbiology 05/14/17 Blood Culture - Preliminary, Resulted NO GROWTH AFTER 4 DAYS 05/14/17 Urine Culture - Final, Complete 05/14/17 Urine Culture Result 1 (EDA) - Final, Complete Medications Current Medications Iohexol (Omnipaque 240 Mg/ml) 30 ml 1X ONCE PO Last administered on 05/14/17 12:33; Start 05/14/17 at 11:45; Stop 05/14/17 at 11:46; Status DC Iohexol (Omnipaque 300 Mg/ml) 75 ml 1X ONCE IV Last administered on 05/14/17 12:33; Start 05/14/17 at 11:45; Stop 05/14/17 at 11:46; Status DC Info (Do NOT chart on this entry -- for MONITORING) 1 each PRN DAILY PRN MC SEE COMMENTS; Start 05/14/17 at 11:45; Stop 05/16/17 at 11:44; Status DC Bisacodyl (Dulcolax Tab) 10 mg PRN DAILY PRN PO CONSTIPATION; Start 05/14/17 at 12:00 Budesonide (Pulmicort) 0.5 mg RTBID NEB Last administered on 05/19/17 07:22; Start 05/14/17 at 20:00 Docusate Sodium (Colace) 100 mg DAILY PO Last administered on 05/15/17 08:45; Start 05/14/17 at 13:00 Famotidine (Pepcid) 20 mg DAILY PO Last administered on 05/18/17 09:26; Start 05/14/17 at 13:00 Finasteride (Proscar) 5 mg DAILY PO ; Start 05/15/17 at 09:00; Status UNV Finasteride (Proscar) 5 mg DAILY PO Last administered on 05/18/17 09:23; Start 05/14/17 at 13:00 Albuterol/ Ipratropium (Duoneb) 3 ml RTBID NEB Last administered on 05/19/17 07:22; Start 05/14/17 at 20:00 Nitroglycerin (Nitrostat) 0.4 mg PRN QID PRN SL chest pain; Start 05/14/17 at 12:00 Piperacillin Sod/ Tazobactam Sod (Zosyn) 3.375 gm Q6HRS IV ; Start 05/14/17 at 12:00; Status UNV Tamsulosin HCl (Flomax) 0.8 mg DAILY PO Last administered on 05/18/17 09:23; Start 05/14/17 at 13:00 Trazodone HCl (Desyrel) 50 mg HS PO Last administered on 05/18/17 20:46; Start 05/14/17 at 21:00 Albuterol Sulfate (Ventolin Neb Soln) 2.5 mg PRN Q4HRS PRN NEB SHORTNESS OF BREATH Last administered on 05/17/17 16:10; Start 05/14/17 at 12:30 Ascorbic Acid (Vitamin C) 500 mg BID PO Last administered on 05/18/17 20:46; Start 05/14/17 at 21:00 Atorvastatin Calcium (Lipitor) 80 mg QHS PO Last administered on 05/18/17 20: 47; Start 05/14/17 at 21:00 Ferrous Sulfate (Feosol) 325 mg [id number] PO Last administered on 05/18/17 07 :44; Start 05/14/17 at 13:00 Lactobacillus Acidophilus (Bacid, Camila-Bid) 1 tab BIDAC PO Last administered on 05/18/17 16:43; Start 05/14/17 at 16:30 Al Hydroxide/Mg Hydroxide (Mylanta Plus Xs) 30 ml Q3HRS PO Last administered on 05/18/17 06:02; Start 05/14/17 at 15:00; Stop 05/18/17 at 12:43; Status DC Magnesium Hydroxide (Milk Of Magnesia) 2,400 mg PRN DAILY PRN PO CONSTIPATION; Start 05/14/17 at 12:45 Ondansetron HCl (Zofran Odt) 4 mg PRN Q6HRS PRN PO NAUSEA/VOMITING Last administered on 05/18/17 10:20; Start 05/14/17 at 12:45 Piperacillin Sod/ Tazobactam Sod 3.375 gm/Sodium Chloride 50 ml @ 100 mls/hr Q6HRS IV Last administered on 05/19/17 05:19; Start 05/14/17 at 18:00 Vancomycin HCl 125 mg [id number] PO Last administered on 05/17/17 12:28; Start at 17:00; Stop 05/17/17 at 12:45; Status DC Sodium Chloride 1,000 ml @ 100 mls/hr Q10H IV Last administered on 05/19/17 05:20; Start 05/14/17 at 14:00 Lidocaine (Lidoderm) 1 patch DAILY TD Last administered on 05/15/17 09:12; Start 05/14/17 at 16:15 Lidocaine (Lidoderm) 1 patch DAILY TD ; Start 05/15/17 at 09:00; Status UNV Acetaminophen (Tylenol) 650 mg PRN Q8HRS PRN PO MILD PAIN; Start 05/14/17 at 17 :15 Enoxaparin Sodium (Lovenox 40mg Syringe) 40 mg Q24H SQ Last administered on 21:00; Start 05/14/17 at 21:00 Barium Sulfate (Varibar Thin Liquid Apple) 148 gm 1X ONCE PO Last administered on 05/15/17 13:41; Start 05/15/17 at 11:00; Stop 05/15/17 at 11:01 ; Status DC Dexamethasone Sodium Phosphate (Decadron) 4 mg 1X ONCE IV Last administered on 05/15/17 11:32; Start 05/15/17 at 11:30; Stop 05/15/17 at 11:31; Status DC Linezolid 300 ml @ 300 mls/hr Q12HR IV Last administered on 05/19/17 08:50; Start 05/15/17 at 15:00 Micafungin Sodium 100 mg/Dextrose 100 ml @ 100 mls/hr Q24H IV Last administered on 05/18/17 14:44; Start 05/16/17 at 15:00 Sodium Polystyrene Sulfonate (Kayexalate) 30 gm 1X ONCE PO Last administered on 05/16/17 14:43; Start 05/16/17 at 14:45; Stop 05/16/17 at 14:46; Status DC Diphenhydramine HCl (Benadryl) 50 mg PRN Q8HRS PRN PO ITCHING Last administered on 05/16/17t 20:37; Start 05/16/17 at 20:00 Al Hydroxide/Mg Hydroxide (Mylanta Plus Xs) 30 ml PRN Q3HRS PRN PO HEARTBURN / GAS; Start 05/18/17 at 12:45 Active Scripts Active Reported Zosyn 3.375 Gram Vial (Piperacillin Sodium/Tazobactam) 3.375 Gm Vial 3.375 Gm IV Q6HRS Zofran (Ondansetron Hcl) 4 Mg Tablet 4 Mg PO Q6HRS PRN Trazodone Hcl 50 Mg Tablet 50 Mg PO HS Duoneb 0.5-3(2.5) Mg/3 Ml (Albuterol/Ipratropium) 3 Ml Ampul.neb 3 Ml NEB BID Diphenhydramine Hcl 50 Mg Capsule 25 Mg PO Q6HRS Vitamin C (Ascorbic Acid) 500 Mg Capsule.er 500 Mg PO BID Acidophilus (Lactobacillus Acidophilus) 1 Each Capsule 1 Cap PO BIDAC Proscar (Finasteride) 5 Mg Tablet 5 Mg PO DAILY Pulmicort (Budesonide) 0.5 Mg/2 Ml Ampul.neb 0.5 Mg IH BID Proair Hfa Inhaler (Albuterol Sulfate) 8.5 Gm Hfa.aer.ad 2 Puff INH PRN Q4HRS PRN Dulcolax (Bisacodyl) 5 Mg Tablet.dr 10 Mg PO PRN DAILY PRN Milk Of Magnesia (Magnesium Hydroxide) 2,400 Mg/10 Ml Oral.susp 2,400 Mg PO PRN PRN Mintox Plus Tablet Chewable (Mag Hydrox/Al Hydrox/Simeth) 1 Each Tab.chew 1 Each PO Q3HRS Docusate Sodium 100 Mg Capsule 100 Mg PO PRN Acetaminophen 500 Mg Tablet 650 Mg PO PRN Tamsulosin Hcl 0.4 Mg Cap.er.24h 0.8 Mg PO DAILY Atorvastatin Calcium 80 Mg Tablet 80 Mg PO HS Ferrous Sulfate 220 Mg/5 Ml Elixir 325 Mg PO DAILY Famotidine 20 Mg Tablet 20 Mg PO DAILY Augmentin 875-125 Tablet (Amoxicillin/Potassium Clav) 1 Each Tablet 1 Tab PO BID Proair Hfa (Albuterol Sulfate) 8.5 Gm Hfa.aer.ad 9 Gm IH NITROGLYCERIN SubLingual (Nitroglycerin) 0.4 Mg Tab.subl 1 Tab SL UD Coumadin (Warfarin Sodium) 3 Mg Tablet 1 Tab PO DAILY Proair Hfa Inhaler (Albuterol Sulfate) 8.5 Gm Hfa.aer.ad 1-2 Inh IH Q4-6 HRS PRN Lipitor (Atorvastatin Calcium) 80 Mg Tablet 80 Mg PO DAILY Vitals/I & O Vital Sign - Last 24 Hours 05/18/17 05/18/17 05/18/17 05/18/17 11:00 15:00 19:00 19:37 Temp 97.9 97.7 98.5 97.9 97.7 98.5 Pulse 78 69 70 Resp 20 18 18 B/P (MAP) 127/63 (84) 106/48 (67) 103/67 (79) Pulse Ox 93 95 95 93 O2 Delivery Room Air Room Air Room Air 05/18/17 05/18/17 05/19/17 05/19/17 20:01 23:00 03:00 07:00 Temp 98.4 97.4 98.4 97.4 Pulse 70 77 Resp 18 20 B/P (MAP) 122/68 (86) 97/61 (73) Pulse Ox 92 98 O2 Delivery Room Air Room Air 05/19/17 07:22 Pulse Ox 96 O2 Delivery Room Air Intake and Output 05/18/17 05/18/17 05/19/17 15:00 23:00 07:00 Intake Total 300 ml 1420 ml Output Total 400 ml Balance 300 ml 1020 ml Nutrition Consultation Dietary Evaluation: Recommendations by RD: Increase Calorie Intake, Protein supplementation Comments: ensure tid Expected Outcomes/Goals: to meet > 75% est nutr needs Interpretation of weight loss: >5% in 1 month Malnutrition Findings: Weight Status: Appropriate Fluid Accumulation (Non-Severe: Mild depletion DAO CROWLEY MD May 19, 2017 09:21
[2017-05-19 10:07] LABS: NEGATIVE OBC MONO NEG; POSITIVE OBC MONO POS
[2017-05-19] MEDS ORDERED: LIDOCAINE 1% / SOD BICARB 8.4% 20 ML VIAL. IJ ONE ×2 (10:10→10:45)
[2017-05-19] MEDS ORDERED: fentaNYL PF VIAL 100 MCG/2 ML VIAL ONE (10:22)
[2017-05-19] MEDS ORDERED: MIDAZOLAM HCL/PF 2 MG/2 ML VIAL. ONE (10:23)
[2017-05-19] MEDS: ASCORBIC ACID 500 MG TABLET PO SCH ×2 (10:57→21:29)
[2017-05-19] MEDS: FINASTERIDE 5 MG TABLET. PO SCH (10:57)
[2017-05-19] MEDS: TAMSULOSIN 0.4 MG CAP.ER.24H. PO SCH (10:57)
[2017-05-19] MEDS: FERROUS SULFATE 325 MG TABLET. PO SCH (10:57)
[2017-05-19] MEDS: LACTOBACILLUS ACIDOPH & BULGAR 1 TABLET. PO SCH ×2 (10:57→15:58)
[2017-05-19] MEDS: DOCUSATE SODIUM 100 MG CAPSULE. PO SCH (10:57)
[2017-05-19] MEDS: FAMOTIDINE 20 MG TABLET. PO SCH (10:57)
[2017-05-19] MEDS: LIDOCAINE (700MG/PATCH) PATCH. TD SCH (10:58)
[2017-05-19 11:00] VITALS: BP 134/76
--- NOTE | 2017-05-19 11:04 | PDOC ---
Provider Note Provider Note Brief IR NOTE: CT guided aspiration of the right abdominal fluid collection yielded aging blood products consistent with aging hematoma. No overt evidence of infection was seen. Fluid was sent for gram stain and culture. No immediate complications. DELORIS WIGGINS MD May 19, 2017 11:04
--- NOTE | 2017-05-19 12:07 | RAD ---
CT-guided aspiration of right retroperitoneal hematoma 05/19/2017 Indication: 76-year-old male with a right retroperitoneal hematoma. Embolization of the bleeding iliolumbar artery noted. The patient presents with increasing leukocytosis of uncertain etiology. Discussion: The risks and benefits of the procedure were discussed with the patient. Informed consent was obtained. The timeout procedure was performed. The right lower quadrant was prepped and draped using sterile barrier technique. CT imaging was performed confirming persistence of a right retroperitoneal hematoma with decreasing attenuation units with respect initial values consistent with expected aging of blood products. Once an appropriate site for skin entry been selected 1% lidocaine without epinephrine was administered for local anesthesia. A 17-gauge needle was advanced into this collection under intermittent CT guidance yielding chronic appearing hematoma. Drainage is grossly nonpurulent, without overt evidence of infection. Therefore draining catheter was not placed. Samples were sent for Gram stain and culture. The needle was removed. A sterile dressing was applied. No immediate complications were identified. Procedures performed under conscious sedation including continuous cardiopulmonary monitoring via a dedicated sedation nurse. Sedation time was approximately 30 minutes Impression: Successive CT-guided aspiration of aging right retroperitoneal hematoma. No overt infection was identified, samples were sent for further evaluation.
--- NOTE | 2017-05-19 13:54 | PDOC ---
PROGRESS NOTES Chief Complaint Chief Complaint Leukocytosis, etiology unclear, with possible CLL, less likely 2/2 infection Recent Retroperitoneal bleed s/p embolization Recent Respiratory failure h/o CVA with right leg weakness Dysphagia mild dementia, baseline plan: fu with id, still on abx IR today to removed some aged abd hematoma fu with ONCO, CLL tests in progress, will take 1 week to come back dc to rehab in 1-2ds. talked to ID and onco, and family History of Present Illness History of Present Illness higher wbc no signs of infection Vitals Vitals Vital Signs Date Time Temp Pulse Resp B/P (MAP) Pulse Ox O2 Delivery O2 Flow Rate FiO2 05/19/17 11:00 98.2 78 20 134/76 (95) 98 98.2 05/19/17 08:00 Room Air Physical Exam General: Alert, Other (disoriented) Heart: No murmurs, Other Lungs: Clear, Other (No RRW) Abdomen: Normal bowel sounds, Other (Mild abd pain) Extremities: Other (2+ edmea biltaeral LE) Skin: No rashes Labs LABS Laboratory Tests Test 05/19/17 03:20 05/19/17 07:58 White Blood Count 71.8 x10^3/uL (4.0-11.0) Red Blood Count 3.77 x10^6/uL (4.30-5.70) Hemoglobin 10.7 g/dL (13.0-17.5) Hematocrit 34.7 % (39.0-53.0) Mean Corpuscular Volume 92 fL (79-100) Mean Corpuscular Hemoglobin 28 pg (25-35) Mean Corpuscular Hemoglobin Concent 31 g/dL (31-37) Red Cell Distribution Width 19.5 % (11.5-14.5) Platelet Count 163 x10^3/uL (140-400) Neutrophils (%) (Auto) 5 % (31-73) Lymphocytes (%) (Auto) 86 % (24-48) Monocytes (%) (Auto) 5 % (0-9) Eosinophils (%) (Auto) 4 % (0-3) Basophils (%) (Auto) 0 % (0-3) Neutrophils # (Auto) 3.4 x10^3uL (1.8-7.7) Lymphocytes # (Auto) 61.7 x10^3/uL (1.0-4.8) Monocytes # (Auto) 3.7 x10^3/uL (0.0-1.1) Eosinophils # (Auto) 3.0 x10^3/uL (0.0-0.7) Basophils # (Auto) 0.0 x10^3/uL (0.0-0.2) Sodium Level 140 mmol/L (136-145) Potassium Level 5.0 mmol/L (3.5-5.1) Chloride Level 108 mmol/L (98-107) Carbon Dioxide Level 26 mmol/L (21-32) Anion Gap 6 (6-14) Blood Urea Nitrogen 13 mg/dL (8-26) Creatinine 1.0 mg/dL (0.7-1.3) Estimated GFR (Cockcroft-Gault) 72.6 Glucose Level 79 mg/dL (70-99) Calcium Level 8.3 mg/dL (8.5-10.1) Heterophil Agglutinins Negative (NEGATIVE) Glucose (Fingerstick) 80 mg/dL (70-99) Review of Systems Review of Systems no fever, chills, sob or chest pain Comment Review of Relevant I have reviewed the following items sarbjit (where applicable) has been applied. Labs Laboratory Tests Test 05/18/17 04:12 05/19/17 03:20 05/19/17 07:58 White Blood Count 69.5 x10^3/uL (4.0-11.0) 71.8 x10^3/uL (4.0-11.0) Red Blood Count 3.63 x10^6/uL (4.30-5.70) 3.77 x10^6/uL (4.30-5.70) Hemoglobin 10.5 g/dL (13.0-17.5) 10.7 g/dL (13.0-17.5) Hematocrit 32.9 % (39.0-53.0) 34.7 % (39.0-53.0) Mean Corpuscular Volume 91 fL (79-100) 92 fL (79-100) Mean Corpuscular Hemoglobin 29 pg (25-35) 28 pg (25-35) Mean Corpuscular Hemoglobin Concent 32 g/dL (31-37) 31 g/dL (31-37) Red Cell Distribution Width 18.9 % (11.5-14.5) 19.5 % (11.5-14.5) Platelet Count 167 x10^3/uL (140-400) 163 x10^3/uL (140-400) Neutrophils (%) (Auto) 4 % (31-73) 5 % (31-73) Lymphocytes (%) (Auto) 86 % (24-48) 86 % (24-48) Monocytes (%) (Auto) 6 % (0-9) 5 % (0-9) Eosinophils (%) (Auto) 4 % (0-3) 4 % (0-3) Basophils (%) (Auto) 0 % (0-3) 0 % (0-3) Neutrophils # (Auto) 3.1 x10^3uL (1.8-7.7) 3.4 x10^3uL (1.8-7.7) Lymphocytes # (Auto) 60.0 x10^3/uL (1.0-4.8) 61.7 x10^3/uL (1.0-4.8) Monocytes # (Auto) 3.8 x10^3/uL (0.0-1.1) 3.7 x10^3/uL (0.0-1.1) Eosinophils # (Auto) 2.5 x10^3/uL (0.0-0.7) 3.0 x10^3/uL (0.0-0.7) Basophils # (Auto) 0.1 x10^3/uL (0.0-0.2) 0.0 x10^3/uL (0.0-0.2) Segmented Neutrophils % 9 % (35-66) Lymphocytes % 85 % (24-48) Monocytes % 3 % (0-10) Eosinophils % 3 % (0-5) Smudge Cells Present Platelet Estimate Adequate (ADEQUATE) Sodium Level 141 mmol/L (136-145) 140 mmol/L (136-145) Potassium Level 4.4 mmol/L (3.5-5.1) 5.0 mmol/L (3.5-5.1) Chloride Level 109 mmol/L (98-107) 108 mmol/L (98-107) Carbon Dioxide Level 28 mmol/L (21-32) 26 mmol/L (21-32) Anion Gap 4 (6-14) 6 (6-14) Blood Urea Nitrogen 13 mg/dL (8-26) 13 mg/dL (8-26) Creatinine 1.0 mg/dL (0.7-1.3) 1.0 mg/dL (0.7-1.3) Estimated GFR (Cockcroft-Gault) 72.6 72.6 Glucose Level 78 mg/dL (70-99) 79 mg/dL (70-99) Calcium Level 7.9 mg/dL (8.5-10.1) 8.3 mg/dL (8.5-10.1) Heterophil Agglutinins Negative (NEGATIVE) Glucose (Fingerstick) 80 mg/dL (70-99) Laboratory Tests Test 05/19/17 03:20 05/19/17 07:58 White Blood Count 71.8 x10^3/uL (4.0-11.0) Red Blood Count 3.77 x10^6/uL (4.30-5.70) Hemoglobin 10.7 g/dL (13.0-17.5) Hematocrit 34.7 % (39.0-53.0) Mean Corpuscular Volume 92 fL (79-100) Mean Corpuscular Hemoglobin 28 pg (25-35) Mean Corpuscular Hemoglobin Concent 31 g/dL (31-37) Red Cell Distribution Width 19.5 % (11.5-14.5) Platelet Count 163 x10^3/uL (140-400) Neutrophils (%) (Auto) 5 % (31-73) Lymphocytes (%) (Auto) 86 % (24-48) Monocytes (%) (Auto) 5 % (0-9) Eosinophils (%) (Auto) 4 % (0-3) Basophils (%) (Auto) 0 % (0-3) Neutrophils # (Auto) 3.4 x10^3uL (1.8-7.7) Lymphocytes # (Auto) 61.7 x10^3/uL (1.0-4.8) Monocytes # (Auto) 3.7 x10^3/uL (0.0-1.1) Eosinophils # (Auto) 3.0 x10^3/uL (0.0-0.7) Basophils # (Auto) 0.0 x10^3/uL (0.0-0.2) Sodium Level 140 mmol/L (136-145) Potassium Level 5.0 mmol/L (3.5-5.1) Chloride Level 108 mmol/L (98-107) Carbon Dioxide Level 26 mmol/L (21-32) Anion Gap 6 (6-14) Blood Urea Nitrogen 13 mg/dL (8-26) Creatinine 1.0 mg/dL (0.7-1.3) Estimated GFR (Cockcroft-Gault) 72.6 Glucose Level 79 mg/dL (70-99) Calcium Level 8.3 mg/dL (8.5-10.1) Heterophil Agglutinins Negative (NEGATIVE) Glucose (Fingerstick) 80 mg/dL (70-99) Microbiology 05/14/17 Blood Culture - Final, Complete NO GROWTH AFTER 5 DAYS 05/14/17 Urine Culture - Final, Complete 05/14/17 Urine Culture Result 1 (EDA) - Final, Complete Medications Current Medications Iohexol (Omnipaque 240 Mg/ml) 30 ml 1X ONCE PO Last administered on 05/14/17 12:33; Start 05/14/17 at 11:45; Stop 05/14/17 at 11:46; Status DC Iohexol (Omnipaque 300 Mg/ml) 75 ml 1X ONCE IV Last administered on 05/14/17 12:33; Start 05/14/17 at 11:45; Stop 05/14/17 at 11:46; Status DC Info (Do NOT chart on this entry -- for MONITORING) 1 each PRN DAILY PRN MC SEE COMMENTS; Start 05/14/17 at 11:45; Stop 05/16/17 at 11:44; Status DC Bisacodyl (Dulcolax Tab) 10 mg PRN DAILY PRN PO CONSTIPATION; Start 05/14/17 at 12:00 Budesonide (Pulmicort) 0.5 mg RTBID NEB Last administered on 05/19/17 07:22; Start 05/14/17 at 20:00 Docusate Sodium (Colace) 100 mg DAILY PO Last administered on 05/19/17 10:57; Start 05/14/17 at 13:00 Famotidine (Pepcid) 20 mg DAILY PO Last administered on 05/19/17 10:57; Start 05/14/17 at 13:00 Finasteride (Proscar) 5 mg DAILY PO ; Start 05/15/17 at 09:00; Status UNV Finasteride (Proscar) 5 mg DAILY PO Last administered on 05/19/17 10:57; Start 05/14/17 at 13:00 Albuterol/ Ipratropium (Duoneb) 3 ml RTBID NEB Last administered on 05/19/17 07:22; Start 05/14/17 at 20:00 Nitroglycerin (Nitrostat) 0.4 mg PRN QID PRN SL chest pain; Start 05/14/17 at 12:00 Piperacillin Sod/ Tazobactam Sod (Zosyn) 3.375 gm Q6HRS IV ; Start 05/14/17 at 12:00; Status UNV Tamsulosin HCl (Flomax) 0.8 mg DAILY PO Last administered on 05/19/17 10:57; Start 05/14/17 at 13:00 Trazodone HCl (Desyrel) 50 mg HS PO Last administered on 05/18/17 20:46; Start 05/14/17 at 21:00 Albuterol Sulfate (Ventolin Neb Soln) 2.5 mg PRN Q4HRS PRN NEB SHORTNESS OF BREATH Last administered on 05/17/17 16:10; Start 05/14/17 at 12:30 Ascorbic Acid (Vitamin C) 500 mg BID PO Last administered on 05/19/17 10:57; Start 05/14/17 at 21:00 Atorvastatin Calcium (Lipitor) 80 mg QHS PO Last administered on 05/18/17 20: 47; Start 05/14/17 at 21:00 Ferrous Sulfate (Feosol) 325 mg DAILYWBKFT PO Last administered on 05/19/17 10 :57; Start 05/14/17 at 13:00 Lactobacillus Acidophilus (Bacid, Camila-Bid) 1 tab BIDAC PO Last administered on 05/19/17 10:57; Start 05/14/17 at 16:30 Al Hydroxide/Mg Hydroxide (Mylanta Plus Xs) 30 ml Q3HRS PO Last administered on 05/18/17 06:02; Start 05/14/17 at 15:00; Stop 05/18/17 at 12:43; Status DC Magnesium Hydroxide (Milk Of Magnesia) 2,400 mg PRN DAILY PRN PO CONSTIPATION; Start 05/14/17 at 12:45 Ondansetron HCl (Zofran Odt) 4 mg PRN Q6HRS PRN PO NAUSEA/VOMITING Last administered on 05/18/17 10:20; Start 05/14/17 at 12:45 Piperacillin Sod/ Tazobactam Sod 3.375 gm/Sodium Chloride 50 ml @ 100 mls/hr Q6HRS IV Last administered on 05/19/17 12:07; Start 05/14/17 at 18:00 Vancomycin HCl 125 mg [id number] PO Last administered on 05/17/17 12:28; Start at 17:00; Stop 05/17/17 at 12:45; Status DC Sodium Chloride 1,000 ml @ 100 mls/hr Q10H IV Last administered on 05/19/17 05:20; Start 05/14/17 at 14:00 Lidocaine (Lidoderm) 1 patch DAILY TD Last administered on 05/19/17 10:58; Start 05/14/17 at 16:15 Lidocaine (Lidoderm) 1 patch DAILY TD ; Start 05/15/17 at 09:00; Status UNV Acetaminophen (Tylenol) 650 mg PRN Q8HRS PRN PO MILD PAIN; Start 05/14/17 at 17 :15 Enoxaparin Sodium (Lovenox 40mg Syringe) 40 mg Q24H SQ Last administered on 21:00; Start 05/14/17 at 21:00 Barium Sulfate (Varibar Thin Liquid Apple) 148 gm 1X ONCE PO Last administered on 05/15/17 13:41; Start 05/15/17 at 11:00; Stop 05/15/17 at 11:01 ; Status DC Dexamethasone Sodium Phosphate (Decadron) 4 mg 1X ONCE IV Last administered on 05/15/17 11:32; Start 05/15/17 at 11:30; Stop 05/15/17 at 11:31; Status DC Linezolid 300 ml @ 300 mls/hr Q12HR IV Last administered on 05/19/17 08:50; Start 05/15/17 at 15:00 Micafungin Sodium 100 mg/Dextrose 100 ml @ 100 mls/hr Q24H IV Last administered on 05/18/17 14:44; Start 05/16/17 at 15:00 Sodium Polystyrene Sulfonate (Kayexalate) 30 gm 1X ONCE PO Last administered on 05/16/17 14:43; Start 05/16/17 at 14:45; Stop 05/16/17 at 14:46; Status DC Diphenhydramine HCl (Benadryl) 50 mg PRN Q8HRS PRN PO ITCHING Last administered on 05/16/17 20:37; Start 05/16/17 at 20:00 Al Hydroxide/Mg Hydroxide (Mylanta Plus Xs) 30 ml PRN Q3HRS PRN PO HEARTBURN / GAS; Start 05/18/17 at 12:45 Lidocaine/Sodium Bicarbonate (Buffered Lidocaine 1%) 20 ml STK-MED ONCE IJ ; Start 05/19/17 at 10:10; Stop 05/19/17 at 10:11; Status DC Fentanyl Citrate (Fentanyl 2ml Vial) 100 mcg STK-MED ONCE .ROUTE ; Start at 10:22; Stop 05/19/17 at 10:23; Status DC Midazolam HCl (Versed) 2 mg STK-MED ONCE .ROUTE ; Start 05/19/17 at 10:23; Stop 05/19/17 at 10:24; Status DC Lidocaine/Sodium Bicarbonate (Buffered Lidocaine 1%) 20 ml 1X ONCE IJ Last administered on 05/19/17 10:46; Start 05/19/17 at 10:45; Stop 05/19/17 at 10:46 ; Status DC Active Scripts Active Reported Zosyn 3.375 Gram Vial (Piperacillin Sodium/Tazobactam) 3.375 Gm Vial 3.375 Gm IV Q6HRS Zofran (Ondansetron Hcl) 4 Mg Tablet 4 Mg PO Q6HRS PRN Trazodone Hcl 50 Mg Tablet 50 Mg PO HS Duoneb 0.5-3(2.5) Mg/3 Ml (Albuterol/Ipratropium) 3 Ml Ampul.neb 3 Ml NEB BID Diphenhydramine Hcl 50 Mg Capsule 25 Mg PO Q6HRS Vitamin C (Ascorbic Acid) 500 Mg Capsule.er 500 Mg PO BID Acidophilus (Lactobacillus Acidophilus) 1 Each Capsule 1 Cap PO BIDAC Proscar (Finasteride) 5 Mg Tablet 5 Mg PO DAILY Pulmicort (Budesonide) 0.5 Mg/2 Ml Ampul.neb 0.5 Mg IH BID Proair Hfa Inhaler (Albuterol Sulfate) 8.5 Gm Hfa.aer.ad 2 Puff INH PRN Q4HRS PRN Dulcolax (Bisacodyl) 5 Mg Tablet.dr 10 Mg PO PRN DAILY PRN Milk Of Magnesia (Magnesium Hydroxide) 2,400 Mg/10 Ml Oral.susp 2,400 Mg PO PRN PRN Mintox Plus Tablet Chewable (Mag Hydrox/Al Hydrox/Simeth) 1 Each Tab.chew 1 Each PO Q3HRS Docusate Sodium 100 Mg Capsule 100 Mg PO PRN Acetaminophen 500 Mg Tablet 650 Mg PO PRN Tamsulosin Hcl 0.4 Mg Cap.er.24h 0.8 Mg PO DAILY Atorvastatin Calcium 80 Mg Tablet 80 Mg PO HS Ferrous Sulfate 220 Mg/5 Ml Elixir 325 Mg PO DAILY Famotidine 20 Mg Tablet 20 Mg PO DAILY Augmentin 875-125 Tablet (Amoxicillin/Potassium Clav) 1 Each Tablet 1 Tab PO BID Proair Hfa (Albuterol Sulfate) 8.5 Gm Hfa.aer.ad 9 Gm IH NITROGLYCERIN SubLingual (Nitroglycerin) 0.4 Mg Tab.subl 1 Tab SL UD Coumadin (Warfarin Sodium) 3 Mg Tablet 1 Tab PO DAILY Proair Hfa Inhaler (Albuterol Sulfate) 8.5 Gm Hfa.aer.ad 1-2 Inh IH Q4-6 HRS PRN Lipitor (Atorvastatin Calcium) 80 Mg Tablet 80 Mg PO DAILY Vitals/I & O Vital Sign - Last 24 Hours 05/18/17 05/18/17 05/18/17 05/18/17 15:00 19:00 19:37 20:01 Temp 97.7 98.5 97.7 98.5 Pulse 69 70 Resp 18 18 B/P (MAP) 106/48 (67) 103/67 (79) Pulse Ox 95 95 93 O2 Delivery Room Air Room Air Room Air 05/18/17 05/19/17 05/19/17 05/19/17 23:00 03:00 07:00 07:22 Temp 98.4 97.4 98.4 97.4 Pulse 70 77 Resp 18 20 B/P (MAP) 122/68 (86) 97/61 (73) Pulse Ox 92 98 96 O2 Delivery Room Air Room Air 05/19/17 05/19/17 08:00 11:00 Temp 98.2 98.2 Pulse 78 Resp 20 B/P (MAP) 134/76 (95) Pulse Ox 98 O2 Delivery Room Air Intake and Output 05/18/17 05/18/17 05/19/17 15:00 23:00 07:00 Intake Total 300 ml 1420 ml Output Total 400 ml Balance 300 ml 1020 ml Nutrition Consultation Dietary Evaluation: Recommendations by RD: Increase Calorie Intake, Protein supplementation Comments: ensure tid Expected Outcomes/Goals: to meet > 75% est nutr needs Interpretation of weight loss: >5% in 1 month Malnutrition Findings: Weight Status: Appropriate Fluid Accumulation (Non-Severe: Mild depletion KARINA PATEL MD May 19, 2017 13:54
[2017-05-19 15:00] VITALS: BP 134/76
[2017-05-19] MEDS: MICAFUNGIN 100 MG in IV DEXTROSE 5% 100 ML IV SCH (15:48)
[2017-05-19 19:00] VITALS: BP 121/71
[2017-05-19] MEDS: diphenhydrAMINE HCL 25 MG CAPSULE PO PRN (21:29)
[2017-05-19] MEDS: ENOXAPARIN 40 MG/0.4 ML SYRINGE. SQ SCH (21:29)
[2017-05-19] MEDS: ATORVASTATIN CALCIUM 40 MG TABLET. PO SCH (21:29)
[2017-05-19] MEDS: traZODone 50 MG TABLET. PO SCH (21:29)
[2017-05-19 23:00] VITALS: BP 126/76
[2017-05-20 04:02] LABS: BASO # 0.1 x10^3/uL (0.0-0.2); BASO % 0 % (0-3); EOS % 3 % (0-3); HEMOGLOBIN 10.2 g/dL (13.0-17.5); LYMPH # 73.4 x10^3/uL (1.0-4.8); LYMPH % 88 % (24-48); MEAN CORPUSCULAR HEMOGLOBIN 28 pg (25-35); MEAN CORPUSCULAR HGB CONC 31 g/dL (31-37); MEAN CORPUSCULAR VOLUME 92 fL (79-100); MONO % 4 % (0-9); NEUT % 5 % (31-73); PLATELET COUNT 150 x10^3/uL (140-400); RED BLOOD COUNT 3.59 x10^6/uL (4.30-5.70); RED CELL DISTRIBUTION WIDTH 19.2 % (11.5-14.5)
[2017-05-20 04:05] LABS: WHITE BLOOD COUNT 83.8 x10^3/uL (4.0-11.0)
[2017-05-20 04:23] LABS: CALCIUM 8.5 mg/dL (8.5-10.1); GFR 72.6; POTASSIUM 4.4 mmol/L (3.5-5.1)
[2017-05-20] MEDS: PIPERACILLIN/TAZOBACTAM 3.375 GM in IV NORMAL SALINE 50ML 50 ML IV SCH ×3 (05:30→18:11)
[2017-05-20] MEDS: IPRATRPIUM/ALBUTEROL 0.5/2.5MG 3 ML NEBU. NEB SCH ×2 (06:27→19:53)
[2017-05-20] MEDS: BUDESONIDE 0.5 MG/2 ML NEBU. NEB SCH ×2 (06:28→19:53)
[2017-05-20 07:00] VITALS: BP 131/82
[2017-05-20] MEDS: LACTOBACILLUS ACIDOPH & BULGAR 1 TABLET. PO SCH ×2 (08:11→18:11)
[2017-05-20] MEDS: FERROUS SULFATE 325 MG TABLET. PO SCH (08:11)
[2017-05-20] MEDS: DOCUSATE SODIUM 100 MG CAPSULE. PO SCH ×2 (08:13→08:31)
[2017-05-20] MEDS: TAMSULOSIN 0.4 MG CAP.ER.24H. PO SCH (08:13)
[2017-05-20] MEDS: FAMOTIDINE 20 MG TABLET. PO SCH (08:14)
[2017-05-20] MEDS: ASCORBIC ACID 500 MG TABLET PO SCH ×2 (08:14→21:32)
[2017-05-20] MEDS: LIDOCAINE (700MG/PATCH) PATCH. TD SCH (08:15)
[2017-05-20] MEDS: FINASTERIDE 5 MG TABLET. PO SCH (08:21)
--- NOTE | 2017-05-20 08:30 | PDOC ---
Subjective: Subjective: Onc f/u- lymphocytosis No changes Attempted fluid aspiration-= only evidence of hematoma, no infxn Possibly transfer back to facility, clinically remaining stable though WBC still increasing Diarrhea continues Objective: Vital Signs: Vital Signs Date Time Temp Pulse Resp B/P (MAP) Pulse Ox O2 Delivery O2 Flow Rate FiO2 05/20/17 06:29 95 Room Air 05/19/17 23:00 98.3 74 20 126/76 (93) 98.3 Physical Exam: Heart: Regular rate Extremities: Other (1+ edema bilateral LE) General: Alert, No acute distress Lungs: Other (no respiratory distress) Psych/Mental Status: Mental status NL, Mood NL Labs/Imaging: WBC still increasing Flow pending Heterophile neg Assessment/Plan A/P: Previous intermittent lymphocytosis, now with daily worsening-- Infectious ( less likely with neg eval so far) vs inflammatory stress response vs CLL Smudge cells reported for first time 05/18. WBC 2 mth ago with some normal levels , hgb and plt remain stable, which all typically do not support CLL. Clinically remaining stable Plan: - F/u Peripheral flow cytometry for CLL, ordered 05/19, usually takes ~ 1 week to return. If DC'ed before then, I will call family/ facility with results. BONNIE LOZA DO May 20, 2017 08:30
--- NOTE | 2017-05-20 08:47 | PDOC ---
Infectious Disease Note Subjective Subjective pt feeling good, walked, no complaints ROS ROS GEN: Denies fevers, chills, sweats HEENT: Denies blurred vision, sore throat CV: Denies chest pain RESP: Denies shortness of air, cough GI: Denies n/v/d NEURO: Denies confusion, dizziness MSK: Denies weakness, joint pain/swelling Vital Sign Vital Signs Vital Signs Date Time Temp Pulse Resp B/P (MAP) Pulse Ox O2 Delivery O2 Flow Rate FiO2 05/20/17 06:29 95 Room Air 05/19/17 23:00 98.3 74 20 126/76 (93) 98.3 Physical Exam PHYSICAL EXAM GENERAL: NAD, Alert HEENT: PERRL, OC/OP NECK: Supple, no JVD, no LN LUNGS: Clear HEART: S1S2, no gallop, no murmur ABD: Soft, NT, no organomegaly, no rebound EXT: No edema, no cyanosis 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, oriented x 3, no focal neurologic deficit SKIN: No rash IV: ok Labs Lab Laboratory Tests Test 05/20/17 03:10 05/20/17 07:26 White Blood Count 83.8 x10^3/uL (4.0-11.0) Red Blood Count 3.59 x10^6/uL (4.30-5.70) Hemoglobin 10.2 g/dL (13.0-17.5) Hematocrit 33.0 % (39.0-53.0) Mean Corpuscular Volume 92 fL (79-100) Mean Corpuscular Hemoglobin 28 pg (25-35) Mean Corpuscular Hemoglobin Concent 31 g/dL (31-37) Red Cell Distribution Width 19.2 % (11.5-14.5) Platelet Count 150 x10^3/uL (140-400) Neutrophils (%) (Auto) 5 % (31-73) Lymphocytes (%) (Auto) 88 % (24-48) Monocytes (%) (Auto) 4 % (0-9) Eosinophils (%) (Auto) 3 % (0-3) Basophils (%) (Auto) 0 % (0-3) Neutrophils # (Auto) 3.7 x10^3uL (1.8-7.7) Lymphocytes # (Auto) 73.4 x10^3/uL (1.0-4.8) Monocytes # (Auto) 3.7 x10^3/uL (0.0-1.1) Eosinophils # (Auto) 2.9 x10^3/uL (0.0-0.7) Basophils # (Auto) 0.1 x10^3/uL (0.0-0.2) Sodium Level 140 mmol/L (136-145) Potassium Level 4.4 mmol/L (3.5-5.1) Chloride Level 107 mmol/L (98-107) Carbon Dioxide Level 24 mmol/L (21-32) Anion Gap 9 (6-14) Blood Urea Nitrogen 13 mg/dL (8-26) Creatinine 1.0 mg/dL (0.7-1.3) Estimated GFR (Cockcroft-Gault) 72.6 Glucose Level 76 mg/dL (70-99) Calcium Level 8.5 mg/dL (8.5-10.1) Glucose (Fingerstick) 79 mg/dL (70-99) Objective Assessment Leukocytosis, etiology unclear,, lymphocytosis, ? viral infection like mono, pertussis etc, (though less likely ), abscess in retroperitoneal appears less likely, CLL is also possible Recent Retroperitoneal bleed s/p embolization Recent Respiratory failure CVA Dysphagia Plan Plan of Care Zyvox, Zosyn and zohaib D/w daughter d/w WILFRID Christine MD May 20, 2017 08:47
--- NOTE | 2017-05-20 08:56 | PDOC ---
PROGRESS NOTES Subjective Subjective No new complaints. Objective Objective Vital Signs Date Time Temp Pulse Resp B/P (MAP) Pulse Ox O2 Delivery O2 Flow Rate FiO2 05/20/17 06:29 95 Room Air 05/19/17 23:00 98.3 74 20 126/76 (93) 98.3 Intake and Output 05/20/17 07:00 Intake Total 1140 ml Output Total 922 ml Balance 218 ml Intake Oral 1140 ml Output Urine Total 900 ml Stool Total 2 ml Other 20 ml # Bowel Movements 6 Physical Exam Physical Exam He is alert,sitting up on commode chair. I spoke to . Plan Plan of Care To continue present physical and occupational therapy. Comment Review of Relevant I have reviewed the following items sarbjit (where applicable) has been applied. Labs Laboratory Tests Test 05/19/17 03:20 05/19/17 07:58 05/20/17 03:10 05/20/17 07:26 White Blood Count 71.8 x10^3/uL (4.0-11.0) 83.8 x10^3/uL (4.0-11.0) Red Blood Count 3.77 x10^6/uL (4.30-5.70) 3.59 x10^6/uL (4.30-5.70) Hemoglobin 10.7 g/dL (13.0-17.5) 10.2 g/dL (13.0-17.5) Hematocrit 34.7 % (39.0-53.0) 33.0 % (39.0-53.0) Mean Corpuscular Volume 92 fL (79-100) 92 fL (79-100) Mean Corpuscular Hemoglobin 28 pg (25-35) 28 pg (25-35) Mean Corpuscular Hemoglobin Concent 31 g/dL (31-37) 31 g/dL (31-37) Red Cell Distribution Width 19.5 % (11.5-14.5) 19.2 % (11.5-14.5) Platelet Count 163 x10^3/uL (140-400) 150 x10^3/uL (140-400) Neutrophils (%) (Auto) 5 % (31-73) 5 % (31-73) Lymphocytes (%) (Auto) 86 % (24-48) 88 % (24-48) Monocytes (%) (Auto) 5 % (0-9) 4 % (0-9) Eosinophils (%) (Auto) 4 % (0-3) 3 % (0-3) Basophils (%) (Auto) 0 % (0-3) 0 % (0-3) Neutrophils # (Auto) 3.4 x10^3uL (1.8-7.7) 3.7 x10^3uL (1.8-7.7) Lymphocytes # (Auto) 61.7 x10^3/uL (1.0-4.8) 73.4 x10^3/uL (1.0-4.8) Monocytes # (Auto) 3.7 x10^3/uL (0.0-1.1) 3.7 x10^3/uL (0.0-1.1) Eosinophils # (Auto) 3.0 x10^3/uL (0.0-0.7) 2.9 x10^3/uL (0.0-0.7) Basophils # (Auto) 0.0 x10^3/uL (0.0-0.2) 0.1 x10^3/uL (0.0-0.2) Sodium Level 140 mmol/L (136-145) 140 mmol/L (136-145) Potassium Level 5.0 mmol/L (3.5-5.1) 4.4 mmol/L (3.5-5.1) Chloride Level 108 mmol/L (98-107) 107 mmol/L (98-107) Carbon Dioxide Level 26 mmol/L (21-32) 24 mmol/L (21-32) Anion Gap 6 (6-14) 9 (6-14) Blood Urea Nitrogen 13 mg/dL (8-26) 13 mg/dL (8-26) Creatinine 1.0 mg/dL (0.7-1.3) 1.0 mg/dL (0.7-1.3) Estimated GFR (Cockcroft-Gault) 72.6 72.6 Glucose Level 79 mg/dL (70-99) 76 mg/dL (70-99) Calcium Level 8.3 mg/dL (8.5-10.1) 8.5 mg/dL (8.5-10.1) Heterophil Agglutinins Negative (NEGATIVE) Glucose (Fingerstick) 80 mg/dL (70-99) 79 mg/dL (70-99) Laboratory Tests Test 05/20/17 03:10 05/20/17 07:26 White Blood Count 83.8 x10^3/uL (4.0-11.0) Red Blood Count 3.59 x10^6/uL (4.30-5.70) Hemoglobin 10.2 g/dL (13.0-17.5) Hematocrit 33.0 % (39.0-53.0) Mean Corpuscular Volume 92 fL (79-100) Mean Corpuscular Hemoglobin 28 pg (25-35) Mean Corpuscular Hemoglobin Concent 31 g/dL (31-37) Red Cell Distribution Width 19.2 % (11.5-14.5) Platelet Count 150 x10^3/uL (140-400) Neutrophils (%) (Auto) 5 % (31-73) Lymphocytes (%) (Auto) 88 % (24-48) Monocytes (%) (Auto) 4 % (0-9) Eosinophils (%) (Auto) 3 % (0-3) Basophils (%) (Auto) 0 % (0-3) Neutrophils # (Auto) 3.7 x10^3uL (1.8-7.7) Lymphocytes # (Auto) 73.4 x10^3/uL (1.0-4.8) Monocytes # (Auto) 3.7 x10^3/uL (0.0-1.1) Eosinophils # (Auto) 2.9 x10^3/uL (0.0-0.7) Basophils # (Auto) 0.1 x10^3/uL (0.0-0.2) Sodium Level 140 mmol/L (136-145) Potassium Level 4.4 mmol/L (3.5-5.1) Chloride Level 107 mmol/L (98-107) Carbon Dioxide Level 24 mmol/L (21-32) Anion Gap 9 (6-14) Blood Urea Nitrogen 13 mg/dL (8-26) Creatinine 1.0 mg/dL (0.7-1.3) Estimated GFR (Cockcroft-Gault) 72.6 Glucose Level 76 mg/dL (70-99) Calcium Level 8.5 mg/dL (8.5-10.1) Glucose (Fingerstick) 79 mg/dL (70-99) Microbiology 05/14/17 Blood Culture - Final, Complete NO GROWTH AFTER 5 DAYS 05/14/17 Urine Culture - Final, Complete 05/14/17 Urine Culture Result 1 (EDA) - Final, Complete Medications Current Medications Iohexol (Omnipaque 240 Mg/ml) 30 ml 1X ONCE PO Last administered on 05/14/17 12:33; Start 05/14/17 at 11:45; Stop 05/14/17 at 11:46; Status DC Iohexol (Omnipaque 300 Mg/ml) 75 ml 1X ONCE IV Last administered on 05/14/17 12:33; Start 05/14/17 at 11:45; Stop 05/14/17 at 11:46; Status DC Info (Do NOT chart on this entry -- for MONITORING) 1 each PRN DAILY PRN MC SEE COMMENTS; Start 05/14/17 at 11:45; Stop 05/16/17 at 11:44; Status DC Bisacodyl (Dulcolax Tab) 10 mg PRN DAILY PRN PO CONSTIPATION; Start 05/14/17 at 12:00 Budesonide (Pulmicort) 0.5 mg RTBID NEB Last administered on 05/20/17 06:28; Start 05/14/17 at 20:00 Docusate Sodium (Colace) 100 mg DAILY PO Last administered on 05/19/17 10:57; Start 05/14/17 at 13:00 Famotidine (Pepcid) 20 mg DAILY PO Last administered on 05/20/17 08:14; Start 05/14/17 at 13:00 Finasteride (Proscar) 5 mg DAILY PO ; Start 05/15/17 at 09:00; Status UNV Finasteride (Proscar) 5 mg DAILY PO Last administered on 05/20/17 08:21; Start 05/14/17 at 13:00 Albuterol/ Ipratropium (Duoneb) 3 ml RTBID NEB Last administered on 05/20/17 06 :27; Start 05/14/17 at 20:00 Nitroglycerin (Nitrostat) 0.4 mg PRN QID PRN SL chest pain; Start 05/14/17 at 12:00 Piperacillin Sod/ Tazobactam Sod (Zosyn) 3.375 gm Q6HRS IV ; Start 05/14/17 at 12:00; Status UNV Tamsulosin HCl (Flomax) 0.8 mg DAILY PO Last administered on 05/20/17 08:13; Start 05/14/17 at 13:00 Trazodone HCl (Desyrel) 50 mg HS PO Last administered on 05/19/17 21:29; Start 05/14/17 at 21:00 Albuterol Sulfate (Ventolin Neb Soln) 2.5 mg PRN Q4HRS PRN NEB SHORTNESS OF BREATH Last administered on 05/17/17 16:10; Start 05/14/17 at 12:30 Ascorbic Acid (Vitamin C) 500 mg BID PO Last administered on 05/20/17 08:14; Start 05/14/17 at 21:00 Atorvastatin Calcium (Lipitor) 80 mg QHS PO Last administered on 05/19/17 21: 29; Start 05/14/17 at 21:00 Ferrous Sulfate (Feosol) 325 mg [id number] PO Last administered on 05/20/17 08: 11; Start 05/14/17 at 13:00 Lactobacillus Acidophilus (Bacid, Camila-Bid) 1 tab BIDAC PO Last administered on 05/20/17 08:11; Start 05/14/17 at 16:30 Al Hydroxide/Mg Hydroxide (Mylanta Plus Xs) 30 ml Q3HRS PO Last administered on 05/18/17 06:02; Start 05/14/17 at 15:00; Stop 05/18/17 at 12:43; Status DC Magnesium Hydroxide (Milk Of Magnesia) 2,400 mg PRN DAILY PRN PO CONSTIPATION; Start 05/14/17 at 12:45 Ondansetron HCl (Zofran Odt) 4 mg PRN Q6HRS PRN PO NAUSEA/VOMITING Last administered on 05/18/17 10:20; Start 05/14/17 at 12:45 Piperacillin Sod/ Tazobactam Sod 3.375 gm/Sodium Chloride 50 ml @ 100 mls/hr Q6HRS IV Last administered on 05/20/17 05:30; Start 05/14/17 at 18:00 Vancomycin HCl 125 mg [id number] PO Last administered on 05/17/17 12:28; Start at 17:00; Stop 05/17/17 at 12:45; Status DC Sodium Chloride 1,000 ml @ 100 mls/hr Q10H IV Last administered on 05/19/17 21:34; Start 05/14/17 at 14:00 Lidocaine (Lidoderm) 1 patch DAILY TD Last administered on 05/20/17 08:15; Start 05/14/17 at 16:15 Lidocaine (Lidoderm) 1 patch DAILY TD ; Start 05/15/17 at 09:00; Status UNV Acetaminophen (Tylenol) 650 mg PRN Q8HRS PRN PO MILD PAIN; Start 05/14/17 at 17 :15 Enoxaparin Sodium (Lovenox 40mg Syringe) 40 mg Q24H SQ Last administered on 21:29; Start 05/14/17 at 21:00 Barium Sulfate (Varibar Thin Liquid Apple) 148 gm 1X ONCE PO Last administered on 05/15/17 13:41; Start 05/15/17 at 11:00; Stop 05/15/17 at 11:01 ; Status DC Dexamethasone Sodium Phosphate (Decadron) 4 mg 1X ONCE IV Last administered on 05/15/17 11:32; Start 05/15/17 at 11:30; Stop 05/15/17 at 11:31; Status DC Linezolid 300 ml @ 300 mls/hr Q12HR IV Last administered on 05/20/17 08:12; Start 05/15/17 at 15:00 Micafungin Sodium 100 mg/Dextrose 100 ml @ 100 mls/hr Q24H IV Last administered on 05/19/17 15:48; Start 05/16/17 at 15:00 Sodium Polystyrene Sulfonate (Kayexalate) 30 gm 1X ONCE PO Last administered on 05/16/17 14:43; Start 05/16/17 at 14:45; Stop 05/16/17 at 14:46; Status DC Diphenhydramine HCl (Benadryl) 50 mg PRN Q8HRS PRN PO ITCHING Last administered on 05/19/17 21:29; Start 05/16/17 at 20:00 Al Hydroxide/Mg Hydroxide (Mylanta Plus Xs) 30 ml PRN Q3HRS PRN PO HEARTBURN / GAS; Start 05/18/17 at 12:45 Lidocaine/Sodium Bicarbonate (Buffered Lidocaine 1%) 20 ml STK-MED ONCE IJ ; Start 05/19/17 at 10:10; Stop 05/19/17 at 10:11; Status DC Fentanyl Citrate (Fentanyl 2ml Vial) 100 mcg STK-MED ONCE .ROUTE ; Start at 10:22; Stop 05/19/17 at 10:23; Status DC Midazolam HCl (Versed) 2 mg STK-MED ONCE .ROUTE ; Start 05/19/17 at 10:23; Stop 05/19/17 at 10:24; Status DC Lidocaine/Sodium Bicarbonate (Buffered Lidocaine 1%) 20 ml 1X ONCE IJ Last administered on 05/19/17t 10:46; Start 05/19/17 at 10:45; Stop 05/19/17 at 10:46 ; Status DC Active Scripts Active Reported Zosyn 3.375 Gram Vial (Piperacillin Sodium/Tazobactam) 3.375 Gm Vial 3.375 Gm IV Q6HRS Zofran (Ondansetron Hcl) 4 Mg Tablet 4 Mg PO Q6HRS PRN Trazodone Hcl 50 Mg Tablet 50 Mg PO HS Duoneb 0.5-3(2.5) Mg/3 Ml (Albuterol/Ipratropium) 3 Ml Ampul.neb 3 Ml NEB BID Diphenhydramine Hcl 50 Mg Capsule 25 Mg PO Q6HRS Vitamin C (Ascorbic Acid) 500 Mg Capsule.er 500 Mg PO BID Acidophilus (Lactobacillus Acidophilus) 1 Each Capsule 1 Cap PO BIDAC Proscar (Finasteride) 5 Mg Tablet 5 Mg PO DAILY Pulmicort (Budesonide) 0.5 Mg/2 Ml Ampul.neb 0.5 Mg IH BID Proair Hfa Inhaler (Albuterol Sulfate) 8.5 Gm Hfa.aer.ad 2 Puff INH PRN Q4HRS PRN Dulcolax (Bisacodyl) 5 Mg Tablet.dr 10 Mg PO PRN DAILY PRN Milk Of Magnesia (Magnesium Hydroxide) 2,400 Mg/10 Ml Oral.susp 2,400 Mg PO PRN PRN Mintox Plus Tablet Chewable (Mag Hydrox/Al Hydrox/Simeth) 1 Each Tab.chew 1 Each PO Q3HRS Docusate Sodium 100 Mg Capsule 100 Mg PO PRN Acetaminophen 500 Mg Tablet 650 Mg PO PRN Tamsulosin Hcl 0.4 Mg Cap.er.24h 0.8 Mg PO DAILY Atorvastatin Calcium 80 Mg Tablet 80 Mg PO HS Ferrous Sulfate 220 Mg/5 Ml Elixir 325 Mg PO DAILY Famotidine 20 Mg Tablet 20 Mg PO DAILY Augmentin 875-125 Tablet (Amoxicillin/Potassium Clav) 1 Each Tablet 1 Tab PO BID Proair Hfa (Albuterol Sulfate) 8.5 Gm Hfa.aer.ad 9 Gm IH NITROGLYCERIN SubLingual (Nitroglycerin) 0.4 Mg Tab.subl 1 Tab SL UD Coumadin (Warfarin Sodium) 3 Mg Tablet 1 Tab PO DAILY Proair Hfa Inhaler (Albuterol Sulfate) 8.5 Gm Hfa.aer.ad 1-2 Inh IH Q4-6 HRS PRN Lipitor (Atorvastatin Calcium) 80 Mg Tablet 80 Mg PO DAILY Vitals/I & O Vital Sign - Last 24 Hours 05/19/17 05/19/17 05/19/17 05/19/17 11:00 15:00 18:19 19:00 Temp 98.2 98.2 98.3 98.2 98.2 98.3 Pulse 78 78 88 Resp 20 20 B/P (MAP) 134/76 (95) 134/76 (95) 121/71 (88) Pulse Ox 98 98 94 91 O2 Delivery Room Air Room Air Room Air 05/19/17 05/19/17 05/20/17 05/20/17 20:00 23:00 06:28 06:29 Temp 98.3 98.3 Pulse 74 Resp 20 B/P (MAP) 126/76 (93) Pulse Ox 92 95 95 O2 Delivery Room Air Room Air Room Air Room Air Intake and Output 05/19/17 05/19/17 05/20/17 15:00 23:00 07:00 Intake Total 120 ml 720 ml 300 ml Output Total 20 ml 700 ml 202 ml Balance 100 ml 20 ml 98 ml Nutrition Consultation Dietary Evaluation: Recommendations by RD: Increase Calorie Intake, Protein supplementation Comments: ensure tid Expected Outcomes/Goals: to meet > 75% est nutr needs Interpretation of weight loss: >5% in 1 month Malnutrition Findings: Weight Status: Appropriate Fluid Accumulation (Non-Severe: Mild depletion DAO CROWLEY MD May 20, 2017 08:55
[2017-05-20 11:00] VITALS: BP 143/76
[2017-05-20] MEDS: IV NORMAL SALINE 1000ML BAG 1,000 ML IV SCH ×2 (12:00→21:25)
--- NOTE | 2017-05-20 12:47 | PDOC ---
PROGRESS NOTES Chief Complaint Chief Complaint Leukocytosis, etiology unclear, with possible CLL, less likely 2/2 infection Recent Retroperitoneal bleed s/p embolization Recent Respiratory failure h/o CVA with right leg weakness Dysphagia mild dementia, baseline plan: fu with id, still on multiple abx IR today to removed some aged abd hematoma, cx neg so far fu with ONCO, CLL tests in progress, will take 1 week to come back dc to rehab in 1-2ds when WBC stable talked to ID and onco, and family History of Present Illness History of Present Illness higher wbc no signs of infection Vitals Vitals Vital Signs Date Time Temp Pulse Resp B/P (MAP) Pulse Ox O2 Delivery O2 Flow Rate FiO2 05/20/17 09:00 95 Room Air 05/20/17 07:00 97.6 99 20 131/82 (98) 97.6 Physical Exam General: Alert, No acute distress Heart: Regular rate Lungs: Clear, Other (No RRW) Abdomen: Normal bowel sounds, Other (Mild abd pain) Extremities: Other (1+ edema bilateral LE) Skin: No rashes Labs LABS Laboratory Tests Test 05/20/17 03:10 05/20/17 07:26 White Blood Count 83.8 x10^3/uL (4.0-11.0) Red Blood Count 3.59 x10^6/uL (4.30-5.70) Hemoglobin 10.2 g/dL (13.0-17.5) Hematocrit 33.0 % (39.0-53.0) Mean Corpuscular Volume 92 fL (79-100) Mean Corpuscular Hemoglobin 28 pg (25-35) Mean Corpuscular Hemoglobin Concent 31 g/dL (31-37) Red Cell Distribution Width 19.2 % (11.5-14.5) Platelet Count 150 x10^3/uL (140-400) Neutrophils (%) (Auto) 5 % (31-73) Lymphocytes (%) (Auto) 88 % (24-48) Monocytes (%) (Auto) 4 % (0-9) Eosinophils (%) (Auto) 3 % (0-3) Basophils (%) (Auto) 0 % (0-3) Neutrophils # (Auto) 3.7 x10^3uL (1.8-7.7) Lymphocytes # (Auto) 73.4 x10^3/uL (1.0-4.8) Monocytes # (Auto) 3.7 x10^3/uL (0.0-1.1) Eosinophils # (Auto) 2.9 x10^3/uL (0.0-0.7) Basophils # (Auto) 0.1 x10^3/uL (0.0-0.2) Sodium Level 140 mmol/L (136-145) Potassium Level 4.4 mmol/L (3.5-5.1) Chloride Level 107 mmol/L (98-107) Carbon Dioxide Level 24 mmol/L (21-32) Anion Gap 9 (6-14) Blood Urea Nitrogen 13 mg/dL (8-26) Creatinine 1.0 mg/dL (0.7-1.3) Estimated GFR (Cockcroft-Gault) 72.6 Glucose Level 76 mg/dL (70-99) Calcium Level 8.5 mg/dL (8.5-10.1) Glucose (Fingerstick) 79 mg/dL (70-99) Review of Systems Review of Systems no fever, chills, sob or chest pain Comment Review of Relevant I have reviewed the following items sarbjit (where applicable) has been applied. Labs Laboratory Tests Test 05/19/17 03:20 05/19/17 07:58 05/20/17 03:10 05/20/17 07:26 White Blood Count 71.8 x10^3/uL (4.0-11.0) 83.8 x10^3/uL (4.0-11.0) Red Blood Count 3.77 x10^6/uL (4.30-5.70) 3.59 x10^6/uL (4.30-5.70) Hemoglobin 10.7 g/dL (13.0-17.5) 10.2 g/dL (13.0-17.5) Hematocrit 34.7 % (39.0-53.0) 33.0 % (39.0-53.0) Mean Corpuscular Volume 92 fL (79-100) 92 fL (79-100) Mean Corpuscular Hemoglobin 28 pg (25-35) 28 pg (25-35) Mean Corpuscular Hemoglobin Concent 31 g/dL (31-37) 31 g/dL (31-37) Red Cell Distribution Width 19.5 % (11.5-14.5) 19.2 % (11.5-14.5) Platelet Count 163 x10^3/uL (140-400) 150 x10^3/uL (140-400) Neutrophils (%) (Auto) 5 % (31-73) 5 % (31-73) Lymphocytes (%) (Auto) 86 % (24-48) 88 % (24-48) Monocytes (%) (Auto) 5 % (0-9) 4 % (0-9) Eosinophils (%) (Auto) 4 % (0-3) 3 % (0-3) Basophils (%) (Auto) 0 % (0-3) 0 % (0-3) Neutrophils # (Auto) 3.4 x10^3uL (1.8-7.7) 3.7 x10^3uL (1.8-7.7) Lymphocytes # (Auto) 61.7 x10^3/uL (1.0-4.8) 73.4 x10^3/uL (1.0-4.8) Monocytes # (Auto) 3.7 x10^3/uL (0.0-1.1) 3.7 x10^3/uL (0.0-1.1) Eosinophils # (Auto) 3.0 x10^3/uL (0.0-0.7) 2.9 x10^3/uL (0.0-0.7) Basophils # (Auto) 0.0 x10^3/uL (0.0-0.2) 0.1 x10^3/uL (0.0-0.2) Sodium Level 140 mmol/L (136-145) 140 mmol/L (136-145) Potassium Level 5.0 mmol/L (3.5-5.1) 4.4 mmol/L (3.5-5.1) Chloride Level 108 mmol/L (98-107) 107 mmol/L (98-107) Carbon Dioxide Level 26 mmol/L (21-32) 24 mmol/L (21-32) Anion Gap 6 (6-14) 9 (6-14) Blood Urea Nitrogen 13 mg/dL (8-26) 13 mg/dL (8-26) Creatinine 1.0 mg/dL (0.7-1.3) 1.0 mg/dL (0.7-1.3) Estimated GFR (Cockcroft-Gault) 72.6 72.6 Glucose Level 79 mg/dL (70-99) 76 mg/dL (70-99) Calcium Level 8.3 mg/dL (8.5-10.1) 8.5 mg/dL (8.5-10.1) Heterophil Agglutinins Negative (NEGATIVE) Glucose (Fingerstick) 80 mg/dL (70-99) 79 mg/dL (70-99) Laboratory Tests Test 05/20/17 03:10 05/20/17 07:26 White Blood Count 83.8 x10^3/uL (4.0-11.0) Red Blood Count 3.59 x10^6/uL (4.30-5.70) Hemoglobin 10.2 g/dL (13.0-17.5) Hematocrit 33.0 % (39.0-53.0) Mean Corpuscular Volume 92 fL (79-100) Mean Corpuscular Hemoglobin 28 pg (25-35) Mean Corpuscular Hemoglobin Concent 31 g/dL (31-37) Red Cell Distribution Width 19.2 % (11.5-14.5) Platelet Count 150 x10^3/uL (140-400) Neutrophils (%) (Auto) 5 % (31-73) Lymphocytes (%) (Auto) 88 % (24-48) Monocytes (%) (Auto) 4 % (0-9) Eosinophils (%) (Auto) 3 % (0-3) Basophils (%) (Auto) 0 % (0-3) Neutrophils # (Auto) 3.7 x10^3uL (1.8-7.7) Lymphocytes # (Auto) 73.4 x10^3/uL (1.0-4.8) Monocytes # (Auto) 3.7 x10^3/uL (0.0-1.1) Eosinophils # (Auto) 2.9 x10^3/uL (0.0-0.7) Basophils # (Auto) 0.1 x10^3/uL (0.0-0.2) Sodium Level 140 mmol/L (136-145) Potassium Level 4.4 mmol/L (3.5-5.1) Chloride Level 107 mmol/L (98-107) Carbon Dioxide Level 24 mmol/L (21-32) Anion Gap 9 (6-14) Blood Urea Nitrogen 13 mg/dL (8-26) Creatinine 1.0 mg/dL (0.7-1.3) Estimated GFR (Cockcroft-Gault) 72.6 Glucose Level 76 mg/dL (70-99) Calcium Level 8.5 mg/dL (8.5-10.1) Glucose (Fingerstick) 79 mg/dL (70-99) Microbiology 05/14/17 Blood Culture - Final, Complete NO GROWTH AFTER 5 DAYS 05/19/17 Anaerobic/Aerobic Culture, Resulted Pending 05/19/17 Anaerobic Culture Result 1 (EDA), Resulted Pending 05/19/17 Aerobic Culture - Preliminary, Resulted 05/19/17 Aerobic Culture Result 1 (EDA) - Preliminary, Resulted 05/14/17 Urine Culture - Final, Complete 05/14/17 Urine Culture Result 1 (EDA) - Final, Complete Medications Current Medications Iohexol (Omnipaque 240 Mg/ml) 30 ml 1X ONCE PO Last administered on 05/14/17 12:33; Start 05/14/17 at 11:45; Stop 05/14/17 at 11:46; Status DC Iohexol (Omnipaque 300 Mg/ml) 75 ml 1X ONCE IV Last administered on 05/14/17 12:33; Start 05/14/17 at 11:45; Stop 05/14/17 at 11:46; Status DC Info (Do NOT chart on this entry -- for MONITORING) 1 each PRN DAILY PRN MC SEE COMMENTS; Start 05/14/17 at 11:45; Stop 05/16/17 at 11:44; Status DC Bisacodyl (Dulcolax Tab) 10 mg PRN DAILY PRN PO CONSTIPATION; Start 05/14/17 at 12:00 Budesonide (Pulmicort) 0.5 mg RTBID NEB Last administered on 05/20/17 06:28; Start 05/14/17 at 20:00 Docusate Sodium (Colace) 100 mg DAILY PO Last administered on 05/19/17 10:57; Start 05/14/17 at 13:00 Famotidine (Pepcid) 20 mg DAILY PO Last administered on 05/20/17 08:14; Start 05/14/17 at 13:00 Finasteride (Proscar) 5 mg DAILY PO ; Start 05/15/17 at 09:00; Status UNV Finasteride (Proscar) 5 mg DAILY PO Last administered on 05/20/17 08:21; Start 05/14/17 at 13:00 Albuterol/ Ipratropium (Duoneb) 3 ml RTBID NEB Last administered on 05/20/17 06 :27; Start 05/14/17 at 20:00 Nitroglycerin (Nitrostat) 0.4 mg PRN QID PRN SL chest pain; Start 05/14/17 at 12:00 Piperacillin Sod/ Tazobactam Sod (Zosyn) 3.375 gm Q6HRS IV ; Start 05/14/17 at 12:00; Status UNV Tamsulosin HCl (Flomax) 0.8 mg DAILY PO Last administered on 05/20/17 08:13; Start 05/14/17 at 13:00 Trazodone HCl (Desyrel) 50 mg HS PO Last administered on 05/19/17 21:29; Start 05/14/17 at 21:00 Albuterol Sulfate (Ventolin Neb Soln) 2.5 mg PRN Q4HRS PRN NEB SHORTNESS OF BREATH Last administered on 05/17/17 16:10; Start 05/14/17 at 12:30 Ascorbic Acid (Vitamin C) 500 mg BID PO Last administered on 05/20/17 08:14; Start 05/14/17 at 21:00 Atorvastatin Calcium (Lipitor) 80 mg QHS PO Last administered on 05/19/17 21: 29; Start 05/14/17 at 21:00 Ferrous Sulfate (Feosol) 325 mg DAILYWBKFT PO Last administered on 05/20/17 08: 11; Start 05/14/17 at 13:00 Lactobacillus Acidophilus (Bacid, Camila-Bid) 1 tab BIDAC PO Last administered on 05/20/17 08:11; Start 05/14/17 at 16:30 Al Hydroxide/Mg Hydroxide (Mylanta Plus Xs) 30 ml Q3HRS PO Last administered on 05/18/17 06:02; Start 05/14/17 at 15:00; Stop 05/18/17 at 12:43; Status DC Magnesium Hydroxide (Milk Of Magnesia) 2,400 mg PRN DAILY PRN PO CONSTIPATION; Start 05/14/17 at 12:45 Ondansetron HCl (Zofran Odt) 4 mg PRN Q6HRS PRN PO NAUSEA/VOMITING Last administered on 05/18/17 10:20; Start 05/14/17 at 12:45 Piperacillin Sod/ Tazobactam Sod 3.375 gm/Sodium Chloride 50 ml @ 100 mls/hr Q6HRS IV Last administered on 05/20/17 11:56; Start 05/14/17 at 18:00 Vancomycin HCl 125 mg [id number] PO Last administered on 05/17/17 12:28; Start at 17:00; Stop 05/17/17 at 12:45; Status DC Sodium Chloride 1,000 ml @ 100 mls/hr Q10H IV Last administered on 05/20/17 12 :00; Start 05/14/17 at 14:00 Lidocaine (Lidoderm) 1 patch DAILY TD Last administered on 05/20/17 08:15; Start 05/14/17 at 16:15 Lidocaine (Lidoderm) 1 patch DAILY TD ; Start 05/15/17 at 09:00; Status UNV Acetaminophen (Tylenol) 650 mg PRN Q8HRS PRN PO MILD PAIN; Start 05/14/17 at 17 :15 Enoxaparin Sodium (Lovenox 40mg Syringe) 40 mg Q24H SQ Last administered on 21:29; Start 05/14/17 at 21:00 Barium Sulfate (Varibar Thin Liquid Apple) 148 gm 1X ONCE PO Last administered on 05/15/17 13:41; Start 05/15/17 at 11:00; Stop 05/15/17 at 11:01 ; Status DC Dexamethasone Sodium Phosphate (Decadron) 4 mg 1X ONCE IV Last administered on 05/15/17 11:32; Start 05/15/17 at 11:30; Stop 05/15/17 at 11:31; Status DC Linezolid 300 ml @ 300 mls/hr Q12HR IV Last administered on 05/20/17 08:12; Start 05/15/17 at 15:00 Micafungin Sodium 100 mg/Dextrose 100 ml @ 100 mls/hr Q24H IV Last administered on 05/19/17 15:48; Start 05/16/17 at 15:00 Sodium Polystyrene Sulfonate (Kayexalate) 30 gm 1X ONCE PO Last administered on 05/16/17 14:43; Start 05/16/17 at 14:45; Stop 05/16/17 at 14:46; Status DC Diphenhydramine HCl (Benadryl) 50 mg PRN Q8HRS PRN PO ITCHING Last administered on 05/19/17 21:29; Start 05/16/17 at 20:00 Al Hydroxide/Mg Hydroxide (Mylanta Plus Xs) 30 ml PRN Q3HRS PRN PO HEARTBURN / GAS; Start 05/18/17 at 12:45 Lidocaine/Sodium Bicarbonate (Buffered Lidocaine 1%) 20 ml STK-MED ONCE IJ ; Start 05/19/17 at 10:10; Stop 05/19/17 at 10:11; Status DC Fentanyl Citrate (Fentanyl 2ml Vial) 100 mcg STK-MED ONCE .ROUTE ; Start at 10:22; Stop 05/19/17 at 10:23; Status DC Midazolam HCl (Versed) 2 mg STK-MED ONCE .ROUTE ; Start 05/19/17 at 10:23; Stop 05/19/17 at 10:24; Status DC Lidocaine/Sodium Bicarbonate (Buffered Lidocaine 1%) 20 ml 1X ONCE IJ Last administered on 05/19/17 10:46; Start 05/19/17 at 10:45; Stop 05/19/17 at 10:46 ; Status DC Active Scripts Active Reported Zosyn 3.375 Gram Vial (Piperacillin Sodium/Tazobactam) 3.375 Gm Vial 3.375 Gm IV Q6HRS Zofran (Ondansetron Hcl) 4 Mg Tablet 4 Mg PO Q6HRS PRN Trazodone Hcl 50 Mg Tablet 50 Mg PO HS Duoneb 0.5-3(2.5) Mg/3 Ml (Albuterol/Ipratropium) 3 Ml Ampul.neb 3 Ml NEB BID Diphenhydramine Hcl 50 Mg Capsule 25 Mg PO Q6HRS Vitamin C (Ascorbic Acid) 500 Mg Capsule.er 500 Mg PO BID Acidophilus (Lactobacillus Acidophilus) 1 Each Capsule 1 Cap PO BIDAC Proscar (Finasteride) 5 Mg Tablet 5 Mg PO DAILY Pulmicort (Budesonide) 0.5 Mg/2 Ml Ampul.neb 0.5 Mg IH BID Proair Hfa Inhaler (Albuterol Sulfate) 8.5 Gm Hfa.aer.ad 2 Puff INH PRN Q4HRS PRN Dulcolax (Bisacodyl) 5 Mg Tablet.dr 10 Mg PO PRN DAILY PRN Milk Of Magnesia (Magnesium Hydroxide) 2,400 Mg/10 Ml Oral.susp 2,400 Mg PO PRN PRN Mintox Plus Tablet Chewable (Mag Hydrox/Al Hydrox/Simeth) 1 Each Tab.chew 1 Each PO Q3HRS Docusate Sodium 100 Mg Capsule 100 Mg PO PRN Acetaminophen 500 Mg Tablet 650 Mg PO PRN Tamsulosin Hcl 0.4 Mg Cap.er.24h 0.8 Mg PO DAILY Atorvastatin Calcium 80 Mg Tablet 80 Mg PO HS Ferrous Sulfate 220 Mg/5 Ml Elixir 325 Mg PO DAILY Famotidine 20 Mg Tablet 20 Mg PO DAILY Augmentin 875-125 Tablet (Amoxicillin/Potassium Clav) 1 Each Tablet 1 Tab PO BID Proair Hfa (Albuterol Sulfate) 8.5 Gm Hfa.aer.ad 9 Gm IH NITROGLYCERIN SubLingual (Nitroglycerin) 0.4 Mg Tab.subl 1 Tab SL UD Coumadin (Warfarin Sodium) 3 Mg Tablet 1 Tab PO DAILY Proair Hfa Inhaler (Albuterol Sulfate) 8.5 Gm Hfa.aer.ad 1-2 Inh IH Q4-6 HRS PRN Lipitor (Atorvastatin Calcium) 80 Mg Tablet 80 Mg PO DAILY Vitals/I & O Vital Sign - Last 24 Hours 05/19/17 05/19/17 05/19/17 05/19/17 15:00 18:19 19:00 20:00 Temp 98.2 98.3 98.2 98.3 Pulse 78 88 Resp 20 B/P (MAP) 134/76 (95) 121/71 (88) Pulse Ox 98 94 91 O2 Delivery Room Air Room Air Room Air Room Air 05/19/17 05/20/17 05/20/17 05/20/17 23:00 06:28 06:29 07:00 Temp 98.3 97.6 98.3 97.6 Pulse 74 99 Resp 20 20 B/P (MAP) 126/76 (93) 131/82 (98) Pulse Ox 92 95 95 89 O2 Delivery Room Air Room Air Room Air Room Air 05/20/17 05/20/17 08:00 09:00 Pulse Ox 95 O2 Delivery Room Air Room Air Intake and Output 05/19/17 05/19/17 05/20/17 15:00 23:00 07:00 Intake Total 120 ml 720 ml 300 ml Output Total 20 ml 700 ml 202 ml Balance 100 ml 20 ml 98 ml Nutrition Consultation Dietary Evaluation: Recommendations by RD: Increase Calorie Intake, Protein supplementation Comments: ensure tid Expected Outcomes/Goals: to meet > 75% est nutr needs Interpretation of weight loss: >5% in 1 month Malnutrition Findings: Weight Status: Appropriate Fluid Accumulation (Non-Severe: Mild depletion KARINA PATEL MD May 20, 2017 12:47
[2017-05-20] MEDS: ALBUTEROL SULFATE 2.5 MG/3 ML NEBU. NEB PRN (13:42)
[2017-05-20 15:00] VITALS: BP 140/79
[2017-05-20] MEDS: MICAFUNGIN 100 MG in IV DEXTROSE 5% 100 ML IV SCH (15:47)
[2017-05-20 19:00] VITALS: BP 133/70
[2017-05-20] MEDS: traZODone 50 MG TABLET. PO SCH (21:31)
[2017-05-20] MEDS: ATORVASTATIN CALCIUM 40 MG TABLET. PO SCH (21:31)
[2017-05-20] MEDS: ENOXAPARIN 40 MG/0.4 ML SYRINGE. SQ SCH (21:31)
[2017-05-20 23:02] VITALS: BP 126/74
[2017-05-21] MEDS: PIPERACILLIN/TAZOBACTAM 3.375 GM in IV NORMAL SALINE 50ML 50 ML IV SCH ×2 (00:38→05:28)
[2017-05-21 03:00] VITALS: BP 128/70
[2017-05-21 04:10] LABS: BASO # 0.2 x10^3/uL (0.0-0.2); BASO % 0 % (0-3); EOS % 4 % (0-3); HEMATOCRIT 32.5 % (39.0-53.0); HEMOGLOBIN 10.5 g/dL (13.0-17.5); LYMPH # 77.4 x10^3/uL (1.0-4.8); LYMPH % 89 % (24-48); MEAN CORPUSCULAR HEMOGLOBIN 29 pg (25-35); MEAN CORPUSCULAR HGB CONC 32 g/dL (31-37); MEAN CORPUSCULAR VOLUME 90 fL (79-100); MONO % 3 % (0-9); NEUT % 4 % (31-73); PLATELET COUNT 136 x10^3/uL (140-400); RED CELL DISTRIBUTION WIDTH 19.6 % (11.5-14.5)
[2017-05-21 04:23] LABS: WHITE BLOOD COUNT 87.2 x10^3/uL (4.0-11.0)
[2017-05-21 04:32] LABS: CALCIUM 7.9 mg/dL (8.5-10.1); GFR 72.6; POTASSIUM 4.3 mmol/L (3.5-5.1)
[2017-05-21 07:00] VITALS: BP 181/71
[2017-05-21] MEDS: BUDESONIDE 0.5 MG/2 ML NEBU. NEB SCH ×2 (07:08→18:08)
[2017-05-21] MEDS: IPRATRPIUM/ALBUTEROL 0.5/2.5MG 3 ML NEBU. NEB SCH ×2 (07:08→18:08)
[2017-05-21] MEDS: IV NORMAL SALINE 1000ML BAG 1,000 ML IV SCH (08:39)
[2017-05-21] MEDS: FINASTERIDE 5 MG TABLET. PO SCH (08:40)
[2017-05-21] MEDS: DOCUSATE SODIUM 100 MG CAPSULE. PO SCH (08:41)
[2017-05-21] MEDS: FAMOTIDINE 20 MG TABLET. PO SCH (08:41)
[2017-05-21] MEDS: TAMSULOSIN 0.4 MG CAP.ER.24H. PO SCH (08:41)
[2017-05-21] MEDS: LACTOBACILLUS ACIDOPH & BULGAR 1 TABLET. PO SCH ×2 (08:41→16:38)
[2017-05-21] MEDS: ASCORBIC ACID 500 MG TABLET PO SCH ×2 (08:41→20:44)
[2017-05-21] MEDS: FERROUS SULFATE 325 MG TABLET. PO SCH (08:41)
--- NOTE | 2017-05-21 08:57 | PDOC ---
Subjective: Subjective: Onc f/u- Lymphocytosis Pt remaining stable. Denies any complaints No fevers LE swelling unchanged Fatigued Objective: Vital Signs: Vital Signs Date Time Temp Pulse Resp B/P (MAP) Pulse Ox O2 Delivery O2 Flow Rate FiO2 05/21/17 07:15 95 Room Air 05/21/17 03:00 98.6 103 20 128/70 (89) 98.6 Physical Exam: Heart: Regular rate Extremities: Other (2+ edema B/l LE) General: Alert, Oriented X3, No acute distress Lungs: Other (no resp distress) Psych/Mental Status: Mental status NL, Mood NL Labs/Imaging: WBC further increasing Assessment/Plan A/P: Consistently worsening lymphocytosis-- Infectious (less likely with neg eval so far) vs inflammatory stress response vs CLL Clinically remaining stable Plan: - F/u Peripheral flow cytometry for CLL, ordered 05/19, usually takes ~ 1 week to return. If DC'ed before then, I will call family/ facility with results. - If does have CLL, would need to initiate ibrutinib po as outpt, requires specialty order pharmacy. D/W Dr. Pérez. BONNIE LOZA DO May 21, 2017 08:57
[2017-05-21] MEDS: LIDOCAINE (700MG/PATCH) PATCH. TD SCH (09:00)
--- NOTE | 2017-05-21 10:08 | PDOC ---
Infectious Disease Note Subjective Subjective pt feeling good, walked, no complaints ROS ROS GEN: Denies fevers, chills, sweats HEENT: Denies blurred vision, sore throat CV: Denies chest pain RESP: Denies shortness of air, cough GI: Denies n/v/d NEURO: Denies confusion, dizziness MSK: Denies weakness, joint pain/swelling Vital Sign Vital Signs Vital Signs Date Time Temp Pulse Resp B/P (MAP) Pulse Ox O2 Delivery O2 Flow Rate FiO2 05/21/17 08:00 Room Air 05/21/17 07:15 95 05/21/17 07:00 98.0 95 18 181/71 (107) 98.0 Physical Exam PHYSICAL EXAM GENERAL: NAD, Alert HEENT: PERRL, OC/OP NECK: Supple, no JVD, no LN LUNGS: Clear HEART: S1S2, no gallop, no murmur ABD: Soft, NT, no organomegaly, no rebound EXT: No edema, no cyanosis COLLECTION MANAGER: Alert, oriented x 3, no focal neurologic deficit SKIN: No rash IV: ok Labs Lab Laboratory Tests Test 05/21/17 03:08 White Blood Count 87.2 x10^3/uL (4.0-11.0) Red Blood Count 3.60 x10^6/uL (4.30-5.70) Hemoglobin 10.5 g/dL (13.0-17.5) Hematocrit 32.5 % (39.0-53.0) Mean Corpuscular Volume 90 fL (79-100) Mean Corpuscular Hemoglobin 29 pg (25-35) Mean Corpuscular Hemoglobin Concent 32 g/dL (31-37) Red Cell Distribution Width 19.6 % (11.5-14.5) Platelet Count 136 x10^3/uL (140-400) Neutrophils (%) (Auto) 4 % (31-73) Lymphocytes (%) (Auto) 89 % (24-48) Monocytes (%) (Auto) 3 % (0-9) Eosinophils (%) (Auto) 4 % (0-3) Basophils (%) (Auto) 0 % (0-3) Neutrophils # (Auto) 3.7 x10^3uL (1.8-7.7) Lymphocytes # (Auto) 77.4 x10^3/uL (1.0-4.8) Monocytes # (Auto) 2.6 x10^3/uL (0.0-1.1) Eosinophils # (Auto) 3.3 x10^3/uL (0.0-0.7) Basophils # (Auto) 0.2 x10^3/uL (0.0-0.2) Sodium Level 140 mmol/L (136-145) Potassium Level 4.3 mmol/L (3.5-5.1) Chloride Level 108 mmol/L (98-107) Carbon Dioxide Level 24 mmol/L (21-32) Anion Gap 8 (6-14) Blood Urea Nitrogen 11 mg/dL (8-26) Creatinine 1.0 mg/dL (0.7-1.3) Estimated GFR (Cockcroft-Gault) 72.6 Glucose Level 68 mg/dL (70-99) Calcium Level 7.9 mg/dL (8.5-10.1) Micro culture neg Objective Assessment Leukocytosis, etiology unclear,, lymphocytosis, ? viral infection like mono, pertussis etc, (though less likely ), abscess in retroperitoneal appears less likely, CLL is possible Recent Retroperitoneal bleed s/p embolization Recent Respiratory failure CVA Dysphagia Plan Plan of Care d/c Zyvox, Zosyn and zohaib D/w daughter d/w dr Hudson,, cancer likely LAUREN,WILFRID Lau MD May 21, 2017 10:08
--- NOTE | 2017-05-21 10:09 | PDOC ---
PROGRESS NOTES Subjective Subjective He had no new complaints. Objective Objective Vital Signs Date Time Temp Pulse Resp B/P (MAP) Pulse Ox O2 Delivery O2 Flow Rate FiO2 05/21/17 08:00 Room Air 05/21/17 07:15 95 05/21/17 07:00 98.0 95 18 181/71 (107) 98.0 Intake and Output 05/21/17 07:00 Intake Total 1160 ml Output Total 405 ml Balance 755 ml Intake Oral 760 ml IV Total 400 ml Output Urine Total 400 ml Stool Total 5 ml # Voids 5 # Bowel Movements 2 Physical Exam Physical Exam He is comfortable sitting up in bedside chair and he is participating with therapy and I spoke to his family about their concerns about bone marrow biopsy scheduled for tomorrow to rule out CLL. Plan Plan of Care To continue present physical and occupational therapy follow up. Comment Review of Relevant I have reviewed the following items sarbjit (where applicable) has been applied. Labs Laboratory Tests Test 05/20/17 03:10 05/20/17 07:26 05/21/17 03:08 White Blood Count 83.8 x10^3/uL (4.0-11.0) 87.2 x10^3/uL (4.0-11.0) Red Blood Count 3.59 x10^6/uL (4.30-5.70) 3.60 x10^6/uL (4.30-5.70) Hemoglobin 10.2 g/dL (13.0-17.5) 10.5 g/dL (13.0-17.5) Hematocrit 33.0 % (39.0-53.0) 32.5 % (39.0-53.0) Mean Corpuscular Volume 92 fL (79-100) 90 fL (79-100) Mean Corpuscular Hemoglobin 28 pg (25-35) 29 pg (25-35) Mean Corpuscular Hemoglobin Concent 31 g/dL (31-37) 32 g/dL (31-37) Red Cell Distribution Width 19.2 % (11.5-14.5) 19.6 % (11.5-14.5) Platelet Count 150 x10^3/uL (140-400) 136 x10^3/uL (140-400) Neutrophils (%) (Auto) 5 % (31-73) 4 % (31-73) Lymphocytes (%) (Auto) 88 % (24-48) 89 % (24-48) Monocytes (%) (Auto) 4 % (0-9) 3 % (0-9) Eosinophils (%) (Auto) 3 % (0-3) 4 % (0-3) Basophils (%) (Auto) 0 % (0-3) 0 % (0-3) Neutrophils # (Auto) 3.7 x10^3uL (1.8-7.7) 3.7 x10^3uL (1.8-7.7) Lymphocytes # (Auto) 73.4 x10^3/uL (1.0-4.8) 77.4 x10^3/uL (1.0-4.8) Monocytes # (Auto) 3.7 x10^3/uL (0.0-1.1) 2.6 x10^3/uL (0.0-1.1) Eosinophils # (Auto) 2.9 x10^3/uL (0.0-0.7) 3.3 x10^3/uL (0.0-0.7) Basophils # (Auto) 0.1 x10^3/uL (0.0-0.2) 0.2 x10^3/uL (0.0-0.2) Sodium Level 140 mmol/L (136-145) 140 mmol/L (136-145) Potassium Level 4.4 mmol/L (3.5-5.1) 4.3 mmol/L (3.5-5.1) Chloride Level 107 mmol/L (98-107) 108 mmol/L (98-107) Carbon Dioxide Level 24 mmol/L (21-32) 24 mmol/L (21-32) Anion Gap 9 (6-14) 8 (6-14) Blood Urea Nitrogen 13 mg/dL (8-26) 11 mg/dL (8-26) Creatinine 1.0 mg/dL (0.7-1.3) 1.0 mg/dL (0.7-1.3) Estimated GFR (Cockcroft-Gault) 72.6 72.6 Glucose Level 76 mg/dL (70-99) 68 mg/dL (70-99) Calcium Level 8.5 mg/dL (8.5-10.1) 7.9 mg/dL (8.5-10.1) Glucose (Fingerstick) 79 mg/dL (70-99) Laboratory Tests Test 05/21/17 03:08 White Blood Count 87.2 x10^3/uL (4.0-11.0) Red Blood Count 3.60 x10^6/uL (4.30-5.70) Hemoglobin 10.5 g/dL (13.0-17.5) Hematocrit 32.5 % (39.0-53.0) Mean Corpuscular Volume 90 fL (79-100) Mean Corpuscular Hemoglobin 29 pg (25-35) Mean Corpuscular Hemoglobin Concent 32 g/dL (31-37) Red Cell Distribution Width 19.6 % (11.5-14.5) Platelet Count 136 x10^3/uL (140-400) Neutrophils (%) (Auto) 4 % (31-73) Lymphocytes (%) (Auto) 89 % (24-48) Monocytes (%) (Auto) 3 % (0-9) Eosinophils (%) (Auto) 4 % (0-3) Basophils (%) (Auto) 0 % (0-3) Neutrophils # (Auto) 3.7 x10^3uL (1.8-7.7) Lymphocytes # (Auto) 77.4 x10^3/uL (1.0-4.8) Monocytes # (Auto) 2.6 x10^3/uL (0.0-1.1) Eosinophils # (Auto) 3.3 x10^3/uL (0.0-0.7) Basophils # (Auto) 0.2 x10^3/uL (0.0-0.2) Sodium Level 140 mmol/L (136-145) Potassium Level 4.3 mmol/L (3.5-5.1) Chloride Level 108 mmol/L (98-107) Carbon Dioxide Level 24 mmol/L (21-32) Anion Gap 8 (6-14) Blood Urea Nitrogen 11 mg/dL (8-26) Creatinine 1.0 mg/dL (0.7-1.3) Estimated GFR (Cockcroft-Gault) 72.6 Glucose Level 68 mg/dL (70-99) Calcium Level 7.9 mg/dL (8.5-10.1) Microbiology 05/14/17 Blood Culture - Final, Complete NO GROWTH AFTER 5 DAYS 05/19/17 Anaerobic/Aerobic Culture, Resulted Pending 05/19/17 Anaerobic Culture Result 1 (EDA), Resulted Pending 05/19/17 Aerobic Culture - Preliminary, Resulted 05/19/17 Aerobic Culture Result 1 (EDA) - Preliminary, Resulted 05/14/17 Urine Culture - Final, Complete 05/14/17 Urine Culture Result 1 (EDA) - Final, Complete Medications Current Medications Iohexol (Omnipaque 240 Mg/ml) 30 ml 1X ONCE PO Last administered on 05/14/17 12:33; Start 05/14/17 at 11:45; Stop 05/14/17 at 11:46; Status DC Iohexol (Omnipaque 300 Mg/ml) 75 ml 1X ONCE IV Last administered on 05/14/17 12:33; Start 05/14/17 at 11:45; Stop 05/14/17 at 11:46; Status DC Info (Do NOT chart on this entry -- for MONITORING) 1 each PRN DAILY PRN MC SEE COMMENTS; Start 05/14/17 at 11:45; Stop 05/16/17 at 11:44; Status DC Bisacodyl (Dulcolax Tab) 10 mg PRN DAILY PRN PO CONSTIPATION; Start 05/14/17 at 12:00 Budesonide (Pulmicort) 0.5 mg RTBID NEB Last administered on 05/21/17 07:08; Start 05/14/17 at 20:00 Docusate Sodium (Colace) 100 mg DAILY PO Last administered on 05/21/17 08:41; Start 05/14/17 at 13:00 Famotidine (Pepcid) 20 mg DAILY PO Last administered on 05/21/17 08:41; Start 05/14/17 at 13:00 Finasteride (Proscar) 5 mg DAILY PO ; Start 05/15/17 at 09:00; Status UNV Finasteride (Proscar) 5 mg DAILY PO Last administered on 05/21/17 08:40; Start 05/14/17 at 13:00 Albuterol/ Ipratropium (Duoneb) 3 ml RTBID NEB Last administered on 05/21/17 07 :08; Start 05/14/17 at 20:00 Nitroglycerin (Nitrostat) 0.4 mg PRN QID PRN SL chest pain; Start 05/14/17 at 12:00 Piperacillin Sod/ Tazobactam Sod (Zosyn) 3.375 gm Q6HRS IV ; Start 05/14/17 at 12:00; Status UNV Tamsulosin HCl (Flomax) 0.8 mg DAILY PO Last administered on 05/21/17 08:41; Start 05/14/17 at 13:00 Trazodone HCl (Desyrel) 50 mg HS PO Last administered on 05/20/17 21:31; Start 05/14/17 at 21:00 Albuterol Sulfate (Ventolin Neb Soln) 2.5 mg PRN Q4HRS PRN NEB SHORTNESS OF BREATH Last administered on 05/20/17 13:42; Start 05/14/17 at 12:30 Ascorbic Acid (Vitamin C) 500 mg BID PO Last administered on 05/21/17 08:41; Start 05/14/17 at 21:00 Atorvastatin Calcium (Lipitor) 80 mg QHS PO Last administered on 05/20/17 21:31 ; Start 05/14/17 at 21:00 Ferrous Sulfate (Feosol) 325 mg DAILYWBKFT PO Last administered on 05/21/17 08: 41; Start 05/14/17 at 13:00 Lactobacillus Acidophilus (Bacid, Camila-Bid) 1 tab BIDAC PO Last administered on 05/21/17 08:41; Start 05/14/17 at 16:30 Al Hydroxide/Mg Hydroxide (Mylanta Plus Xs) 30 ml Q3HRS PO Last administered on 05/18/17 06:02; Start 05/14/17 at 15:00; Stop 05/18/17 at 12:43; Status DC Magnesium Hydroxide (Milk Of Magnesia) 2,400 mg PRN DAILY PRN PO CONSTIPATION; Start 05/14/17 at 12:45 Ondansetron HCl (Zofran Odt) 4 mg PRN Q6HRS PRN PO NAUSEA/VOMITING Last administered on 05/18/17 10:20; Start 05/14/17 at 12:45 Piperacillin Sod/ Tazobactam Sod 3.375 gm/Sodium Chloride 50 ml @ 100 mls/hr Q6HRS IV Last administered on 05/21/17 05:28; Start 05/14/17 at 18:00 Vancomycin HCl 125 mg [id number] PO Last administered on 05/17/17 12:28; Start at 17:00; Stop 05/17/17 at 12:45; Status DC Sodium Chloride 1,000 ml @ 100 mls/hr Q10H IV Last administered on 05/21/17 08 :39; Start 05/14/17 at 14:00 Lidocaine (Lidoderm) 1 patch DAILY TD Last administered on 05/20/17 08:15; Start 05/14/17 at 16:15 Lidocaine (Lidoderm) 1 patch DAILY TD ; Start 05/15/17 at 09:00; Status UNV Acetaminophen (Tylenol) 650 mg PRN Q8HRS PRN PO MILD PAIN; Start 05/14/17 at 17 :15 Enoxaparin Sodium (Lovenox 40mg Syringe) 40 mg Q24H SQ Last administered on 05/20 21:31; Start 05/14/17 at 21:00 Barium Sulfate (Varibar Thin Liquid Apple) 148 gm 1X ONCE PO Last administered on 05/15/17 13:41; Start 05/15/17 at 11:00; Stop 05/15/17 at 11:01 ; Status DC Dexamethasone Sodium Phosphate (Decadron) 4 mg 1X ONCE IV Last administered on 05/15/17 11:32; Start 05/15/17 at 11:30; Stop 05/15/17 at 11:31; Status DC Linezolid 300 ml @ 300 mls/hr Q12HR IV Last administered on 05/21/17 08:40; Start 05/15/17 at 15:00 Micafungin Sodium 100 mg/Dextrose 100 ml @ 100 mls/hr Q24H IV Last administered on 05/20/17 15:47; Start 05/16/17 at 15:00 Sodium Polystyrene Sulfonate (Kayexalate) 30 gm 1X ONCE PO Last administered on 05/16/17 14:43; Start 05/16/17 at 14:45; Stop 05/16/17 at 14:46; Status DC Diphenhydramine HCl (Benadryl) 50 mg PRN Q8HRS PRN PO ITCHING Last administered on 05/19/17t 21:29; Start 05/16/17 at 20:00 Al Hydroxide/Mg Hydroxide (Mylanta Plus Xs) 30 ml PRN Q3HRS PRN PO HEARTBURN / GAS; Start 05/18/17 at 12:45 Lidocaine/Sodium Bicarbonate (Buffered Lidocaine 1%) 20 ml STK-MED ONCE IJ ; Start 05/19/17 at 10:10; Stop 05/19/17 at 10:11; Status DC Fentanyl Citrate (Fentanyl 2ml Vial) 100 mcg STK-MED ONCE .ROUTE ; Start at 10:22; Stop 05/19/17 at 10:23; Status DC Midazolam HCl (Versed) 2 mg STK-MED ONCE .ROUTE ; Start 05/19/17 at 10:23; Stop 05/19/17 at 10:24; Status DC Lidocaine/Sodium Bicarbonate (Buffered Lidocaine 1%) 20 ml 1X ONCE IJ Last administered on 05/19/17t 10:46; Start 05/19/17 at 10:45; Stop 05/19/17 at 10:46 ; Status DC Active Scripts Active Reported Zosyn 3.375 Gram Vial (Piperacillin Sodium/Tazobactam) 3.375 Gm Vial 3.375 Gm IV Q6HRS Zofran (Ondansetron Hcl) 4 Mg Tablet 4 Mg PO Q6HRS PRN Trazodone Hcl 50 Mg Tablet 50 Mg PO HS Duoneb 0.5-3(2.5) Mg/3 Ml (Albuterol/Ipratropium) 3 Ml Ampul.neb 3 Ml NEB BID Diphenhydramine Hcl 50 Mg Capsule 25 Mg PO Q6HRS Vitamin C (Ascorbic Acid) 500 Mg Capsule.er 500 Mg PO BID Acidophilus (Lactobacillus Acidophilus) 1 Each Capsule 1 Cap PO BIDAC Proscar (Finasteride) 5 Mg Tablet 5 Mg PO DAILY Pulmicort (Budesonide) 0.5 Mg/2 Ml Ampul.neb 0.5 Mg IH BID Proair Hfa Inhaler (Albuterol Sulfate) 8.5 Gm Hfa.aer.ad 2 Puff INH PRN Q4HRS PRN Dulcolax (Bisacodyl) 5 Mg Tablet.dr 10 Mg PO PRN DAILY PRN Milk Of Magnesia (Magnesium Hydroxide) 2,400 Mg/10 Ml Oral.susp 2,400 Mg PO PRN PRN Mintox Plus Tablet Chewable (Mag Hydrox/Al Hydrox/Simeth) 1 Each Tab.chew 1 Each PO Q3HRS Docusate Sodium 100 Mg Capsule 100 Mg PO PRN Acetaminophen 500 Mg Tablet 650 Mg PO PRN Tamsulosin Hcl 0.4 Mg Cap.er.24h 0.8 Mg PO DAILY Atorvastatin Calcium 80 Mg Tablet 80 Mg PO HS Ferrous Sulfate 220 Mg/5 Ml Elixir 325 Mg PO DAILY Famotidine 20 Mg Tablet 20 Mg PO DAILY Augmentin 875-125 Tablet (Amoxicillin/Potassium Clav) 1 Each Tablet 1 Tab PO BID Proair Hfa (Albuterol Sulfate) 8.5 Gm Hfa.aer.ad 9 Gm IH NITROGLYCERIN SubLingual (Nitroglycerin) 0.4 Mg Tab.subl 1 Tab SL UD Coumadin (Warfarin Sodium) 3 Mg Tablet 1 Tab PO DAILY Proair Hfa Inhaler (Albuterol Sulfate) 8.5 Gm Hfa.aer.ad 1-2 Inh IH Q4-6 HRS PRN Lipitor (Atorvastatin Calcium) 80 Mg Tablet 80 Mg PO DAILY Vitals/I & O Vital Sign - Last 24 Hours 05/20/17 05/20/17 05/20/17 05/20/17 11:00 13:44 15:00 19:00 Temp 97.4 97.9 98.4 97.4 97.9 98.4 Pulse 89 96 85 Resp 20 20 20 B/P (MAP) 143/76 (98) 140/79 (99) 133/70 (91) Pulse Ox 95 94 93 O2 Delivery Room Air Room Air Room Air Room Air 05/20/17 05/20/17 05/20/17 05/21/17 19:55 20:00 23:02 03:00 Temp 97.9 98.6 97.9 98.6 Pulse 103 103 Resp 20 20 B/P (MAP) 126/74 (91) 128/70 (89) Pulse Ox 95 93 94 O2 Delivery Room Air Room Air Room Air BiPAP/CPAP 05/21/17 05/21/17 05/21/17 05/21/17 07:00 07:11 07:15 08:00 Temp 98.0 98.0 Pulse 95 Resp 18 B/P (MAP) 181/71 (107) Pulse Ox 98 95 95 O2 Delivery Room Air Room Air Room Air Room Air Intake and Output 05/20/17 05/20/17 05/21/17 15:00 23:00 07:00 Intake Total 760 ml 400 ml Output Total 205 ml 200 ml Balance 555 ml 200 ml Nutrition Consultation Dietary Evaluation: Recommendations by RD: Increase Calorie Intake, Protein supplementation Comments: ensure tid whole milk w/ meals Expected Outcomes/Goals: to meet > 75% est nutr needs- met at times, goal ongoing Interpretation of weight loss: >5% in 1 month Malnutrition Findings: Weight Status: Appropriate Fluid Accumulation (Non-Severe: Mild depletion DAO CROWLEY MD May 21, 2017 10:08
[2017-05-21 10:41] VITALS: BP 114/58
--- NOTE | 2017-05-21 12:04 | PDOC ---
PROGRESS NOTES Chief Complaint Chief Complaint Leukocytosis, etiology unclear, with possible CLL, less likely 2/2 infection Recent Retroperitoneal bleed s/p embolization Recent Respiratory failure h/o CVA with right leg weakness Dysphagia mild dementia, baseline plan: fu with jose mi multiple abx on 05/21 IR removed some aged abd hematoma, cx neg fu with ONCO, CLL tests in progress, will take 1 week to come back will do BM bx as per onco tmr, then dc talked to ID and onco, and family History of Present Illness History of Present Illness higher wbc lower PLT no signs of infection Vitals Vitals Vital Signs Date Time Temp Pulse Resp B/P (MAP) Pulse Ox O2 Delivery O2 Flow Rate FiO2 05/21/17 10:41 98.3 87 18 114/58 (76) 94 Room Air 98.3 Physical Exam General: Alert, Oriented X3, No acute distress Heart: Regular rate Lungs: Clear, Other (No RRW) Abdomen: Normal bowel sounds, Other (Mild abd pain) Extremities: Other (2+ edema B/l LE) Skin: No rashes Labs LABS Laboratory Tests Test 05/21/17 03:08 White Blood Count 87.2 x10^3/uL (4.0-11.0) Red Blood Count 3.60 x10^6/uL (4.30-5.70) Hemoglobin 10.5 g/dL (13.0-17.5) Hematocrit 32.5 % (39.0-53.0) Mean Corpuscular Volume 90 fL (79-100) Mean Corpuscular Hemoglobin 29 pg (25-35) Mean Corpuscular Hemoglobin Concent 32 g/dL (31-37) Red Cell Distribution Width 19.6 % (11.5-14.5) Platelet Count 136 x10^3/uL (140-400) Neutrophils (%) (Auto) 4 % (31-73) Lymphocytes (%) (Auto) 89 % (24-48) Monocytes (%) (Auto) 3 % (0-9) Eosinophils (%) (Auto) 4 % (0-3) Basophils (%) (Auto) 0 % (0-3) Neutrophils # (Auto) 3.7 x10^3uL (1.8-7.7) Lymphocytes # (Auto) 77.4 x10^3/uL (1.0-4.8) Monocytes # (Auto) 2.6 x10^3/uL (0.0-1.1) Eosinophils # (Auto) 3.3 x10^3/uL (0.0-0.7) Basophils # (Auto) 0.2 x10^3/uL (0.0-0.2) Sodium Level 140 mmol/L (136-145) Potassium Level 4.3 mmol/L (3.5-5.1) Chloride Level 108 mmol/L (98-107) Carbon Dioxide Level 24 mmol/L (21-32) Anion Gap 8 (6-14) Blood Urea Nitrogen 11 mg/dL (8-26) Creatinine 1.0 mg/dL (0.7-1.3) Estimated GFR (Cockcroft-Gault) 72.6 Glucose Level 68 mg/dL (70-99) Calcium Level 7.9 mg/dL (8.5-10.1) Review of Systems Review of Systems no fever, chills, sob or chest pain Comment Review of Relevant I have reviewed the following items sarbjit (where applicable) has been applied. Labs Laboratory Tests Test 05/20/17 03:10 05/20/17 07:26 05/21/17 03:08 White Blood Count 83.8 x10^3/uL (4.0-11.0) 87.2 x10^3/uL (4.0-11.0) Red Blood Count 3.59 x10^6/uL (4.30-5.70) 3.60 x10^6/uL (4.30-5.70) Hemoglobin 10.2 g/dL (13.0-17.5) 10.5 g/dL (13.0-17.5) Hematocrit 33.0 % (39.0-53.0) 32.5 % (39.0-53.0) Mean Corpuscular Volume 92 fL (79-100) 90 fL (79-100) Mean Corpuscular Hemoglobin 28 pg (25-35) 29 pg (25-35) Mean Corpuscular Hemoglobin Concent 31 g/dL (31-37) 32 g/dL (31-37) Red Cell Distribution Width 19.2 % (11.5-14.5) 19.6 % (11.5-14.5) Platelet Count 150 x10^3/uL (140-400) 136 x10^3/uL (140-400) Neutrophils (%) (Auto) 5 % (31-73) 4 % (31-73) Lymphocytes (%) (Auto) 88 % (24-48) 89 % (24-48) Monocytes (%) (Auto) 4 % (0-9) 3 % (0-9) Eosinophils (%) (Auto) 3 % (0-3) 4 % (0-3) Basophils (%) (Auto) 0 % (0-3) 0 % (0-3) Neutrophils # (Auto) 3.7 x10^3uL (1.8-7.7) 3.7 x10^3uL (1.8-7.7) Lymphocytes # (Auto) 73.4 x10^3/uL (1.0-4.8) 77.4 x10^3/uL (1.0-4.8) Monocytes # (Auto) 3.7 x10^3/uL (0.0-1.1) 2.6 x10^3/uL (0.0-1.1) Eosinophils # (Auto) 2.9 x10^3/uL (0.0-0.7) 3.3 x10^3/uL (0.0-0.7) Basophils # (Auto) 0.1 x10^3/uL (0.0-0.2) 0.2 x10^3/uL (0.0-0.2) Sodium Level 140 mmol/L (136-145) 140 mmol/L (136-145) Potassium Level 4.4 mmol/L (3.5-5.1) 4.3 mmol/L (3.5-5.1) Chloride Level 107 mmol/L (98-107) 108 mmol/L (98-107) Carbon Dioxide Level 24 mmol/L (21-32) 24 mmol/L (21-32) Anion Gap 9 (6-14) 8 (6-14) Blood Urea Nitrogen 13 mg/dL (8-26) 11 mg/dL (8-26) Creatinine 1.0 mg/dL (0.7-1.3) 1.0 mg/dL (0.7-1.3) Estimated GFR (Cockcroft-Gault) 72.6 72.6 Glucose Level 76 mg/dL (70-99) 68 mg/dL (70-99) Calcium Level 8.5 mg/dL (8.5-10.1) 7.9 mg/dL (8.5-10.1) Glucose (Fingerstick) 79 mg/dL (70-99) Laboratory Tests Test 05/21/17 03:08 White Blood Count 87.2 x10^3/uL (4.0-11.0) Red Blood Count 3.60 x10^6/uL (4.30-5.70) Hemoglobin 10.5 g/dL (13.0-17.5) Hematocrit 32.5 % (39.0-53.0) Mean Corpuscular Volume 90 fL (79-100) Mean Corpuscular Hemoglobin 29 pg (25-35) Mean Corpuscular Hemoglobin Concent 32 g/dL (31-37) Red Cell Distribution Width 19.6 % (11.5-14.5) Platelet Count 136 x10^3/uL (140-400) Neutrophils (%) (Auto) 4 % (31-73) Lymphocytes (%) (Auto) 89 % (24-48) Monocytes (%) (Auto) 3 % (0-9) Eosinophils (%) (Auto) 4 % (0-3) Basophils (%) (Auto) 0 % (0-3) Neutrophils # (Auto) 3.7 x10^3uL (1.8-7.7) Lymphocytes # (Auto) 77.4 x10^3/uL (1.0-4.8) Monocytes # (Auto) 2.6 x10^3/uL (0.0-1.1) Eosinophils # (Auto) 3.3 x10^3/uL (0.0-0.7) Basophils # (Auto) 0.2 x10^3/uL (0.0-0.2) Sodium Level 140 mmol/L (136-145) Potassium Level 4.3 mmol/L (3.5-5.1) Chloride Level 108 mmol/L (98-107) Carbon Dioxide Level 24 mmol/L (21-32) Anion Gap 8 (6-14) Blood Urea Nitrogen 11 mg/dL (8-26) Creatinine 1.0 mg/dL (0.7-1.3) Estimated GFR (Cockcroft-Gault) 72.6 Glucose Level 68 mg/dL (70-99) Calcium Level 7.9 mg/dL (8.5-10.1) Microbiology 05/14/17 Blood Culture - Final, Complete NO GROWTH AFTER 5 DAYS 05/19/17 Anaerobic/Aerobic Culture - Preliminary, Resulted 05/19/17 Anaerobic Culture Result 1 (EDA) - Preliminary, Resulted 05/19/17 Aerobic Culture - Preliminary, Resulted 05/19/17 Aerobic Culture Result 1 (EDA) - Preliminary, Resulted 05/14/17 Urine Culture - Final, Complete 05/14/17 Urine Culture Result 1 (EAD) - Final, Complete Medications Current Medications Iohexol (Omnipaque 240 Mg/ml) 30 ml 1X ONCE PO Last administered on 05/14/17 12:33; Start 05/14/17 at 11:45; Stop 05/14/17 at 11:46; Status DC Iohexol (Omnipaque 300 Mg/ml) 75 ml 1X ONCE IV Last administered on 05/14/17 12:33; Start 05/14/17 at 11:45; Stop 05/14/17 at 11:46; Status DC Info (Do NOT chart on this entry -- for MONITORING) 1 each PRN DAILY PRN MC SEE COMMENTS; Start 05/14/17 at 11:45; Stop 05/16/17 at 11:44; Status DC Bisacodyl (Dulcolax Tab) 10 mg PRN DAILY PRN PO CONSTIPATION; Start 05/14/17 at 12:00 Budesonide (Pulmicort) 0.5 mg RTBID NEB Last administered on 05/21/17 07:08; Start 05/14/17 at 20:00 Docusate Sodium (Colace) 100 mg DAILY PO Last administered on 05/21/17 08:41; Start 05/14/17 at 13:00 Famotidine (Pepcid) 20 mg DAILY PO Last administered on 05/21/17 08:41; Start 05/14/17 at 13:00 Finasteride (Proscar) 5 mg DAILY PO ; Start 05/15/17 at 09:00; Status UNV Finasteride (Proscar) 5 mg DAILY PO Last administered on 05/21/17 08:40; Start 05/14/17 at 13:00 Albuterol/ Ipratropium (Duoneb) 3 ml RTBID NEB Last administered on 05/21/17 07 :08; Start 05/14/17 at 20:00 Nitroglycerin (Nitrostat) 0.4 mg PRN QID PRN SL chest pain; Start 05/14/17 at 12:00 Piperacillin Sod/ Tazobactam Sod (Zosyn) 3.375 gm Q6HRS IV ; Start 05/14/17 at 12:00; Status UNV Tamsulosin HCl (Flomax) 0.8 mg DAILY PO Last administered on 05/21/17 08:41; Start 05/14/17 at 13:00 Trazodone HCl (Desyrel) 50 mg HS PO Last administered on 05/20/17 21:31; Start 05/14/17 at 21:00 Albuterol Sulfate (Ventolin Neb Soln) 2.5 mg PRN Q4HRS PRN NEB SHORTNESS OF BREATH Last administered on 05/20/17 13:42; Start 05/14/17 at 12:30 Ascorbic Acid (Vitamin C) 500 mg BID PO Last administered on 05/21/17 08:41; Start 05/14/17 at 21:00 Atorvastatin Calcium (Lipitor) 80 mg QHS PO Last administered on 05/20/17 21:31 ; Start 05/14/17 at 21:00 Ferrous Sulfate (Feosol) 325 mg DAILYWBKFT PO Last administered on 05/21/17 08: 41; Start 05/14/17 at 13:00 Lactobacillus Acidophilus (Bacid, Camila-Bid) 1 tab BIDAC PO Last administered on 05/21/17 08:41; Start 05/14/17 at 16:30 Al Hydroxide/Mg Hydroxide (Mylanta Plus Xs) 30 ml Q3HRS PO Last administered on 05/18/17 06:02; Start 05/14/17 at 15:00; Stop 05/18/17 at 12:43; Status DC Magnesium Hydroxide (Milk Of Magnesia) 2,400 mg PRN DAILY PRN PO CONSTIPATION; Start 05/14/17 at 12:45 Ondansetron HCl (Zofran Odt) 4 mg PRN Q6HRS PRN PO NAUSEA/VOMITING Last administered on 05/18/17 10:20; Start 05/14/17 at 12:45 Piperacillin Sod/ Tazobactam Sod 3.375 gm/Sodium Chloride 50 ml @ 100 mls/hr Q6HRS IV Last administered on 05/21/17 05:28; Start 05/14/17 at 18:00; Stop 05/21/17 at 10:09; Status DC Vancomycin HCl 125 mg [id number] PO Last administered on 05/17/17 12:28; Start at 17:00; Stop 05/17/17 at 12:45; Status DC Sodium Chloride 1,000 ml @ 100 mls/hr Q10H IV Last administered on 05/21/17 08 :39; Start 05/14/17 at 14:00 Lidocaine (Lidoderm) 1 patch DAILY TD Last administered on 05/20/17 08:15; Start 05/14/17 at 16:15 Lidocaine (Lidoderm) 1 patch DAILY TD ; Start 05/15/17 at 09:00; Status UNV Acetaminophen (Tylenol) 650 mg PRN Q8HRS PRN PO MILD PAIN; Start 05/14/17 at 17 :15 Enoxaparin Sodium (Lovenox 40mg Syringe) 40 mg Q24H SQ Last administered on 05/20 21:31; Start 05/14/17 at 21:00 Barium Sulfate (Varibar Thin Liquid Apple) 148 gm 1X ONCE PO Last administered on 05/15/17 13:41; Start 05/15/17 at 11:00; Stop 05/15/17 at 11:01 ; Status DC Dexamethasone Sodium Phosphate (Decadron) 4 mg 1X ONCE IV Last administered on 05/15/17 11:32; Start 05/15/17 at 11:30; Stop 05/15/17 at 11:31; Status DC Linezolid 300 ml @ 300 mls/hr Q12HR IV Last administered on 05/21/17 08:40; Start 05/15/17 at 15:00; Stop 05/21/17 at 10:09; Status DC Micafungin Sodium 100 mg/Dextrose 100 ml @ 100 mls/hr Q24H IV Last administered on 05/20/17 15:47; Start 05/16/17 at 15:00; Stop 05/21/17 at 10:09; Status DC Sodium Polystyrene Sulfonate (Kayexalate) 30 gm 1X ONCE PO Last administered on 05/16/17 14:43; Start 05/16/17 at 14:45; Stop 05/16/17 at 14:46; Status DC Diphenhydramine HCl (Benadryl) 50 mg PRN Q8HRS PRN PO ITCHING Last administered on 05/19/17 21:29; Start 05/16/17 at 20:00 Al Hydroxide/Mg Hydroxide (Mylanta Plus Xs) 30 ml PRN Q3HRS PRN PO HEARTBURN / GAS; Start 05/18/17 at 12:45 Lidocaine/Sodium Bicarbonate (Buffered Lidocaine 1%) 20 ml STK-MED ONCE IJ ; Start 05/19/17 at 10:10; Stop 05/19/17 at 10:11; Status DC Fentanyl Citrate (Fentanyl 2ml Vial) 100 mcg STK-MED ONCE .ROUTE ; Start at 10:22; Stop 05/19/17 at 10:23; Status DC Midazolam HCl (Versed) 2 mg STK-MED ONCE .ROUTE ; Start 05/19/17 at 10:23; Stop 05/19/17 at 10:24; Status DC Lidocaine/Sodium Bicarbonate (Buffered Lidocaine 1%) 20 ml 1X ONCE IJ Last administered on 05/19/17 10:46; Start 05/19/17 at 10:45; Stop 05/19/17 at 10:46 ; Status DC Active Scripts Active Reported Zosyn 3.375 Gram Vial (Piperacillin Sodium/Tazobactam) 3.375 Gm Vial 3.375 Gm IV Q6HRS Zofran (Ondansetron Hcl) 4 Mg Tablet 4 Mg PO Q6HRS PRN Trazodone Hcl 50 Mg Tablet 50 Mg PO HS Duoneb 0.5-3(2.5) Mg/3 Ml (Albuterol/Ipratropium) 3 Ml Ampul.neb 3 Ml NEB BID Diphenhydramine Hcl 50 Mg Capsule 25 Mg PO Q6HRS Vitamin C (Ascorbic Acid) 500 Mg Capsule.er 500 Mg PO BID Acidophilus (Lactobacillus Acidophilus) 1 Each Capsule 1 Cap PO BIDAC Proscar (Finasteride) 5 Mg Tablet 5 Mg PO DAILY Pulmicort (Budesonide) 0.5 Mg/2 Ml Ampul.neb 0.5 Mg IH BID Proair Hfa Inhaler (Albuterol Sulfate) 8.5 Gm Hfa.aer.ad 2 Puff INH PRN Q4HRS PRN Dulcolax (Bisacodyl) 5 Mg Tablet.dr 10 Mg PO PRN DAILY PRN Milk Of Magnesia (Magnesium Hydroxide) 2,400 Mg/10 Ml Oral.susp 2,400 Mg PO PRN PRN Mintox Plus Tablet Chewable (Mag Hydrox/Al Hydrox/Simeth) 1 Each Tab.chew 1 Each PO Q3HRS Docusate Sodium 100 Mg Capsule 100 Mg PO PRN Acetaminophen 500 Mg Tablet 650 Mg PO PRN Tamsulosin Hcl 0.4 Mg Cap.er.24h 0.8 Mg PO DAILY Atorvastatin Calcium 80 Mg Tablet 80 Mg PO HS Ferrous Sulfate 220 Mg/5 Ml Elixir 325 Mg PO DAILY Famotidine 20 Mg Tablet 20 Mg PO DAILY Augmentin 875-125 Tablet (Amoxicillin/Potassium Clav) 1 Each Tablet 1 Tab PO BID Proair Hfa (Albuterol Sulfate) 8.5 Gm Hfa.aer.ad 9 Gm IH NITROGLYCERIN SubLingual (Nitroglycerin) 0.4 Mg Tab.subl 1 Tab SL UD Coumadin (Warfarin Sodium) 3 Mg Tablet 1 Tab PO DAILY Proair Hfa Inhaler (Albuterol Sulfate) 8.5 Gm Hfa.aer.ad 1-2 Inh IH Q4-6 HRS PRN Lipitor (Atorvastatin Calcium) 80 Mg Tablet 80 Mg PO DAILY Vitals/I & O Vital Sign - Last 24 Hours 05/20/17 05/20/17 05/20/17 05/20/17 13:44 15:00 19:00 19:55 Temp 97.9 98.4 97.9 98.4 Pulse 96 85 Resp 20 20 B/P (MAP) 140/79 (99) 133/70 (91) Pulse Ox 94 93 95 O2 Delivery Room Air Room Air Room Air Room Air 05/20/17 05/20/17 05/21/17 05/21/17 20:00 23:02 03:00 07:00 Temp 97.9 98.6 98.0 97.9 98.6 98.0 Pulse 103 103 95 Resp 20 20 18 B/P (MAP) 126/74 (91) 128/70 (89) 181/71 (107) Pulse Ox 93 94 98 O2 Delivery Room Air Room Air BiPAP/CPAP Room Air 05/21/17 05/21/17 05/21/17 05/21/17 07:11 07:15 08:00 10:41 Temp 98.3 98.3 Pulse 87 Resp 18 B/P (MAP) 114/58 (76) Pulse Ox 95 95 94 O2 Delivery Room Air Room Air Room Air Room Air Intake and Output 05/20/17 05/20/17 05/21/17 15:00 23:00 07:00 Intake Total 760 ml 400 ml Output Total 205 ml 200 ml Balance 555 ml 200 ml Nutrition Consultation Dietary Evaluation: Recommendations by RD: Increase Calorie Intake, Protein supplementation Comments: ensure tid whole milk w/ meals Expected Outcomes/Goals: to meet > 75% est nutr needs- met at times, goal ongoing Interpretation of weight loss: >5% in 1 month Malnutrition Findings: Weight Status: Appropriate Fluid Accumulation (Non-Severe: Mild depletion KARINA PATEL MD May 21, 2017 12:04
[2017-05-21 15:09] VITALS: BP 135/69
[2017-05-21 19:00] VITALS: BP 108/69
[2017-05-21] MEDS: traZODone 50 MG TABLET. PO SCH (20:44)
[2017-05-21] MEDS: ENOXAPARIN 40 MG/0.4 ML SYRINGE. SQ SCH (20:45)
[2017-05-21] MEDS: ATORVASTATIN CALCIUM 40 MG TABLET. PO SCH (20:45)
[2017-05-21 22:59] VITALS: BP 113/54
[2017-05-22] VITALS (11 sets, daily range): BP systolic 93–151; BP diastolic 55–78
[2017-05-22] MEDS: ALBUTEROL SULFATE 2.5 MG/3 ML NEBU. NEB PRN (04:58)
[2017-05-22 05:21] LABS: BASO # 0.1 x10^3/uL (0.0-0.2); BASO % 0 % (0-3); EOS % 4 % (0-3); HEMATOCRIT 36.7 % (39.0-53.0); HEMOGLOBIN 11.1 g/dL (13.0-17.5); LYMPH # 85.9 x10^3/uL (1.0-4.8); LYMPH % 86 % (24-48); MEAN CORPUSCULAR HEMOGLOBIN 28 pg (25-35); MEAN CORPUSCULAR HGB CONC 30 g/dL (31-37); MEAN CORPUSCULAR VOLUME 93 fL (79-100); MONO % 6 % (0-9); NEUT % 4 % (31-73); PLATELET COUNT 125 x10^3/uL (140-400); RED BLOOD COUNT 3.96 x10^6/uL (4.30-5.70); RED CELL DISTRIBUTION WIDTH 19.5 % (11.5-14.5)
[2017-05-22 05:26] LABS: WHITE BLOOD COUNT 99.8 x10^3/uL (4.0-11.0)
[2017-05-22 05:38] LABS: CALCIUM 8.5 mg/dL (8.5-10.1); GFR 72.6; POTASSIUM 4.6 mmol/L (3.5-5.1)
[2017-05-22] MEDS: BUDESONIDE 0.5 MG/2 ML NEBU. NEB SCH (07:22)
[2017-05-22] MEDS: IPRATRPIUM/ALBUTEROL 0.5/2.5MG 3 ML NEBU. NEB SCH ×3 (07:22→15:24)
[2017-05-22] MEDS: LACTOBACILLUS ACIDOPH & BULGAR 1 TABLET. PO SCH (07:30)
[2017-05-22] MEDS: LIDOCAINE (700MG/PATCH) PATCH. TD SCH (09:00)
--- NOTE | 2017-05-22 09:12 | PDOC ---
PROGRESS NOTES Subjective Subjective He complains of numbness right foot. Objective Objective Vital Signs Date Time Temp Pulse Resp B/P (MAP) Pulse Ox O2 Delivery O2 Flow Rate FiO2 05/22/17 07:24 96 Room Air 05/22/17 07:00 98.3 105 18 114/76 (89) 98.3 Intake and Output 05/22/17 07:00 Intake Total 720 ml Output Total 1050 ml Balance -330 ml Intake Oral 720 ml Output Urine Total 1050 ml Physical Exam Physical Exam He is alert and comfortable. He continues with relative weakness of right foot dorsiflexor muscles and he had edema and redness of both lower extremities, right >left.He continues to get up and walk with roller walker under supervision. Plan Plan of Care I spoke to Tristan Blanton and psych social worker.To transfer him to [facility] for continued care when medically stable. Comment Review of Relevant I have reviewed the following items sarbjit (where applicable) has been applied. Labs Laboratory Tests Test 05/21/17 03:08 05/22/17 04:50 White Blood Count 87.2 x10^3/uL (4.0-11.0) 99.8 x10^3/uL (4.0-11.0) Red Blood Count 3.60 x10^6/uL (4.30-5.70) 3.96 x10^6/uL (4.30-5.70) Hemoglobin 10.5 g/dL (13.0-17.5) 11.1 g/dL (13.0-17.5) Hematocrit 32.5 % (39.0-53.0) 36.7 % (39.0-53.0) Mean Corpuscular Volume 90 fL (79-100) 93 fL (79-100) Mean Corpuscular Hemoglobin 29 pg (25-35) 28 pg (25-35) Mean Corpuscular Hemoglobin Concent 32 g/dL (31-37) 30 g/dL (31-37) Red Cell Distribution Width 19.6 % (11.5-14.5) 19.5 % (11.5-14.5) Platelet Count 136 x10^3/uL (140-400) 125 x10^3/uL (140-400) Neutrophils (%) (Auto) 4 % (31-73) 4 % (31-73) Lymphocytes (%) (Auto) 89 % (24-48) 86 % (24-48) Monocytes (%) (Auto) 3 % (0-9) 6 % (0-9) Eosinophils (%) (Auto) 4 % (0-3) 4 % (0-3) Basophils (%) (Auto) 0 % (0-3) 0 % (0-3) Neutrophils # (Auto) 3.7 x10^3uL (1.8-7.7) 4.0 x10^3uL (1.8-7.7) Lymphocytes # (Auto) 77.4 x10^3/uL (1.0-4.8) 85.9 x10^3/uL (1.0-4.8) Monocytes # (Auto) 2.6 x10^3/uL (0.0-1.1) 5.9 x10^3/uL (0.0-1.1) Eosinophils # (Auto) 3.3 x10^3/uL (0.0-0.7) 3.8 x10^3/uL (0.0-0.7) Basophils # (Auto) 0.2 x10^3/uL (0.0-0.2) 0.1 x10^3/uL (0.0-0.2) Sodium Level 140 mmol/L (136-145) 140 mmol/L (136-145) Potassium Level 4.3 mmol/L (3.5-5.1) 4.6 mmol/L (3.5-5.1) Chloride Level 108 mmol/L (98-107) 107 mmol/L (98-107) Carbon Dioxide Level 24 mmol/L (21-32) 24 mmol/L (21-32) Anion Gap 8 (6-14) 9 (6-14) Blood Urea Nitrogen 11 mg/dL (8-26) 13 mg/dL (8-26) Creatinine 1.0 mg/dL (0.7-1.3) 1.0 mg/dL (0.7-1.3) Estimated GFR (Cockcroft-Gault) 72.6 72.6 Glucose Level 68 mg/dL (70-99) 81 mg/dL (70-99) Calcium Level 7.9 mg/dL (8.5-10.1) 8.5 mg/dL (8.5-10.1) Laboratory Tests Test 05/22/17 04:50 White Blood Count 99.8 x10^3/uL (4.0-11.0) Red Blood Count 3.96 x10^6/uL (4.30-5.70) Hemoglobin 11.1 g/dL (13.0-17.5) Hematocrit 36.7 % (39.0-53.0) Mean Corpuscular Volume 93 fL (79-100) Mean Corpuscular Hemoglobin 28 pg (25-35) Mean Corpuscular Hemoglobin Concent 30 g/dL (31-37) Red Cell Distribution Width 19.5 % (11.5-14.5) Platelet Count 125 x10^3/uL (140-400) Neutrophils (%) (Auto) 4 % (31-73) Lymphocytes (%) (Auto) 86 % (24-48) Monocytes (%) (Auto) 6 % (0-9) Eosinophils (%) (Auto) 4 % (0-3) Basophils (%) (Auto) 0 % (0-3) Neutrophils # (Auto) 4.0 x10^3uL (1.8-7.7) Lymphocytes # (Auto) 85.9 x10^3/uL (1.0-4.8) Monocytes # (Auto) 5.9 x10^3/uL (0.0-1.1) Eosinophils # (Auto) 3.8 x10^3/uL (0.0-0.7) Basophils # (Auto) 0.1 x10^3/uL (0.0-0.2) Sodium Level 140 mmol/L (136-145) Potassium Level 4.6 mmol/L (3.5-5.1) Chloride Level 107 mmol/L (98-107) Carbon Dioxide Level 24 mmol/L (21-32) Anion Gap 9 (6-14) Blood Urea Nitrogen 13 mg/dL (8-26) Creatinine 1.0 mg/dL (0.7-1.3) Estimated GFR (Cockcroft-Gault) 72.6 Glucose Level 81 mg/dL (70-99) Calcium Level 8.5 mg/dL (8.5-10.1) Microbiology 05/14/17 Blood Culture - Final, Complete NO GROWTH AFTER 5 DAYS 05/19/17 Anaerobic/Aerobic Culture - Preliminary, Resulted 05/19/17 Anaerobic Culture Result 1 (EDA) - Preliminary, Resulted 05/19/17 Aerobic Culture - Preliminary, Resulted 05/19/17 Aerobic Culture Result 1 (EDA) - Preliminary, Resulted 05/14/17 Urine Culture - Final, Complete 05/14/17 Urine Culture Result 1 (EDA) - Final, Complete Medications Current Medications Iohexol (Omnipaque 240 Mg/ml) 30 ml 1X ONCE PO Last administered on 05/14/17 12:33; Start 05/14/17 at 11:45; Stop 05/14/17 at 11:46; Status DC Iohexol (Omnipaque 300 Mg/ml) 75 ml 1X ONCE IV Last administered on 05/14/17 12:33; Start 05/14/17 at 11:45; Stop 05/14/17 at 11:46; Status DC Info (Do NOT chart on this entry -- for MONITORING) 1 each PRN DAILY PRN MC SEE COMMENTS; Start 05/14/17 at 11:45; Stop 05/16/17 at 11:44; Status DC Bisacodyl (Dulcolax Tab) 10 mg PRN DAILY PRN PO CONSTIPATION; Start 05/14/17 at 12:00 Budesonide (Pulmicort) 0.5 mg RTBID NEB Last administered on 05/22/17 07:22; Start 05/14/17 at 20:00 Docusate Sodium (Colace) 100 mg DAILY PO Last administered on 05/21/17 08:41; Start 05/14/17 at 13:00 Famotidine (Pepcid) 20 mg DAILY PO Last administered on 05/21/17 08:41; Start 05/14/17 at 13:00 Finasteride (Proscar) 5 mg DAILY PO ; Start 05/15/17 at 09:00; Status UNV Finasteride (Proscar) 5 mg DAILY PO Last administered on 05/21/17 08:40; Start 05/14/17 at 13:00 Albuterol/ Ipratropium (Duoneb) 3 ml RTBID NEB Last administered on 05/21/17 18 :08; Start 05/14/17 at 20:00; Stop 05/21/17 at 18:27; Status DC Nitroglycerin (Nitrostat) 0.4 mg PRN QID PRN SL chest pain; Start 05/14/17 at 12:00 Piperacillin Sod/ Tazobactam Sod (Zosyn) 3.375 gm Q6HRS IV ; Start 05/14/17 at 12:00; Status UNV Tamsulosin HCl (Flomax) 0.8 mg DAILY PO Last administered on 05/21/17 08:41; Start 05/14/17 at 13:00 Trazodone HCl (Desyrel) 50 mg HS PO Last administered on 05/21/17 20:44; Start 05/14/17 at 21:00 Albuterol Sulfate (Ventolin Neb Soln) 2.5 mg PRN Q4HRS PRN NEB SHORTNESS OF BREATH Last administered on 05/22/17 04:58; Start 05/14/17 at 12:30 Ascorbic Acid (Vitamin C) 500 mg BID PO Last administered on 05/21/17 20:44; Start 05/14/17 at 21:00 Atorvastatin Calcium (Lipitor) 80 mg QHS PO Last administered on 05/21/17 20:45 ; Start 05/14/17 at 21:00 Ferrous Sulfate (Feosol) 325 mg DAILYWBKFT PO Last administered on 05/21/17 08: 41; Start 05/14/17 at 13:00 Lactobacillus Acidophilus (Bacid, Camila-Bid) 1 tab BIDAC PO Last administered on 05/21/17 16:38; Start 05/14/17 at 16:30 Al Hydroxide/Mg Hydroxide (Mylanta Plus Xs) 30 ml Q3HRS PO Last administered on 05/18/17 06:02; Start 05/14/17 at 15:00; Stop 05/18/17 at 12:43; Status DC Magnesium Hydroxide (Milk Of Magnesia) 2,400 mg PRN DAILY PRN PO CONSTIPATION; Start 05/14/17 at 12:45 Ondansetron HCl (Zofran Odt) 4 mg PRN Q6HRS PRN PO NAUSEA/VOMITING Last administered on 05/18/17 10:20; Start 05/14/17 at 12:45 Piperacillin Sod/ Tazobactam Sod 3.375 gm/Sodium Chloride 50 ml @ 100 mls/hr Q6HRS IV Last administered on 05/21/17 05:28; Start 05/14/17 at 18:00; Stop 05/21/17 at 10:09; Status DC Vancomycin HCl 125 mg [id number] PO Last administered on 05/17/17 12:28; Start at 17:00; Stop 05/17/17 at 12:45; Status DC Sodium Chloride 1,000 ml @ 100 mls/hr Q10H IV Last administered on 05/21/17 08 :39; Start 05/14/17 at 14:00; Stop 05/21/17 at 12:03; Status DC Lidocaine (Lidoderm) 1 patch DAILY TD Last administered on 05/20/17 08:15; Start 05/14/17 at 16:15 Lidocaine (Lidoderm) 1 patch DAILY TD ; Start 05/15/17 at 09:00; Status UNV Acetaminophen (Tylenol) 650 mg PRN Q8HRS PRN PO MILD PAIN; Start 05/14/17 at 17 :15 Enoxaparin Sodium (Lovenox 40mg Syringe) 40 mg Q24H SQ Last administered on 05/20 21:31; Start 05/14/17 at 21:00 Barium Sulfate (Varibar Thin Liquid Apple) 148 gm 1X ONCE PO Last administered on 05/15/17 13:41; Start 05/15/17 at 11:00; Stop 05/15/17 at 11:01 ; Status DC Dexamethasone Sodium Phosphate (Decadron) 4 mg 1X ONCE IV Last administered on 05/15/17 11:32; Start 05/15/17 at 11:30; Stop 05/15/17 at 11:31; Status DC Linezolid 300 ml @ 300 mls/hr Q12HR IV Last administered on 05/21/17 08:40; Start 05/15/17 at 15:00; Stop 05/21/17 at 10:09; Status DC Micafungin Sodium 100 mg/Dextrose 100 ml @ 100 mls/hr Q24H IV Last administered on 05/20/17 15:47; Start 05/16/17 at 15:00; Stop 05/21/17 at 10:09; Status DC Sodium Polystyrene Sulfonate (Kayexalate) 30 gm 1X ONCE PO Last administered on 05/16/17 14:43; Start 05/16/17 at 14:45; Stop 05/16/17 at 14:46; Status DC Diphenhydramine HCl (Benadryl) 50 mg PRN Q8HRS PRN PO ITCHING Last administered on 05/19/17 21:29; Start 05/16/17 at 20:00 Al Hydroxide/Mg Hydroxide (Mylanta Plus Xs) 30 ml PRN Q3HRS PRN PO HEARTBURN / GAS; Start 05/18/17 at 12:45 Lidocaine/Sodium Bicarbonate (Buffered Lidocaine 1%) 20 ml STK-MED ONCE IJ ; Start 05/19/17 at 10:10; Stop 05/19/17 at 10:11; Status DC Fentanyl Citrate (Fentanyl 2ml Vial) 100 mcg STK-MED ONCE .ROUTE ; Start at 10:22; Stop 05/19/17 at 10:23; Status DC Midazolam HCl (Versed) 2 mg STK-MED ONCE .ROUTE ; Start 05/19/17 at 10:23; Stop 05/19/17 at 10:24; Status DC Lidocaine/Sodium Bicarbonate (Buffered Lidocaine 1%) 20 ml 1X ONCE IJ Last administered on 05/19/17 10:46; Start 05/19/17 at 10:45; Stop 05/19/17 at 10:46 ; Status DC Albuterol/ Ipratropium (Duoneb) 3 ml QID NEB Last administered on 05/22/17 07: 22; Start 05/22/17 at 08:00 Active Scripts Active Reported Zosyn 3.375 Gram Vial (Piperacillin Sodium/Tazobactam) 3.375 Gm Vial 3.375 Gm IV Q6HRS Zofran (Ondansetron Hcl) 4 Mg Tablet 4 Mg PO Q6HRS PRN Trazodone Hcl 50 Mg Tablet 50 Mg PO HS Duoneb 0.5-3(2.5) Mg/3 Ml (Albuterol/Ipratropium) 3 Ml Ampul.neb 3 Ml NEB BID Diphenhydramine Hcl 50 Mg Capsule 25 Mg PO Q6HRS Vitamin C (Ascorbic Acid) 500 Mg Capsule.er 500 Mg PO BID Acidophilus (Lactobacillus Acidophilus) 1 Each Capsule 1 Cap PO BIDAC Proscar (Finasteride) 5 Mg Tablet 5 Mg PO DAILY Pulmicort (Budesonide) 0.5 Mg/2 Ml Ampul.neb 0.5 Mg IH BID Proair Hfa Inhaler (Albuterol Sulfate) 8.5 Gm Hfa.aer.ad 2 Puff INH PRN Q4HRS PRN Dulcolax (Bisacodyl) 5 Mg Tablet.dr 10 Mg PO PRN DAILY PRN Milk Of Magnesia (Magnesium Hydroxide) 2,400 Mg/10 Ml Oral.susp 2,400 Mg PO PRN PRN Mintox Plus Tablet Chewable (Mag Hydrox/Al Hydrox/Simeth) 1 Each Tab.chew 1 Each PO Q3HRS Docusate Sodium 100 Mg Capsule 100 Mg PO PRN Acetaminophen 500 Mg Tablet 650 Mg PO PRN Tamsulosin Hcl 0.4 Mg Cap.er.24h 0.8 Mg PO DAILY Atorvastatin Calcium 80 Mg Tablet 80 Mg PO HS Ferrous Sulfate 220 Mg/5 Ml Elixir 325 Mg PO DAILY Famotidine 20 Mg Tablet 20 Mg PO DAILY Augmentin 875-125 Tablet (Amoxicillin/Potassium Clav) 1 Each Tablet 1 Tab PO BID Proair Hfa (Albuterol Sulfate) 8.5 Gm Hfa.aer.ad 9 Gm IH NITROGLYCERIN SubLingual (Nitroglycerin) 0.4 Mg Tab.subl 1 Tab SL UD Coumadin (Warfarin Sodium) 3 Mg Tablet 1 Tab PO DAILY Proair Hfa Inhaler (Albuterol Sulfate) 8.5 Gm Hfa.aer.ad 1-2 Inh IH Q4-6 HRS PRN Lipitor (Atorvastatin Calcium) 80 Mg Tablet 80 Mg PO DAILY Vitals/I & O Vital Sign - Last 24 Hours 05/21/17 05/21/17 05/21/17 05/21/17 10:41 15:09 18:09 19:00 Temp 98.3 97.6 98.1 98.3 97.6 98.1 Pulse 87 85 91 Resp 18 18 22 B/P (MAP) 114/58 (76) 135/69 (91) 108/69 (82) Pulse Ox 94 96 95 93 O2 Delivery Room Air Room Air Room Air Room Air 05/21/17 05/21/17 05/22/17 05/22/17 20:00 22:59 03:00 04:58 Temp 99.7 99.7 Pulse 70 Resp 22 B/P (MAP) 113/54 (73) Pulse Ox 92 95 O2 Delivery Room Air Room Air Room Air Room Air 05/22/17 05/22/17 07:00 07:24 Temp 98.3 98.3 Pulse 105 Resp 18 B/P (MAP) 114/76 (89) Pulse Ox 94 96 O2 Delivery Room Air Room Air Intake and Output 05/21/17 05/21/17 05/22/17 15:00 23:00 07:00 Intake Total 360 ml 360 ml 0 ml Output Total 350 ml 400 ml 300 ml Balance 10 ml -40 ml -300 ml Nutrition Consultation Dietary Evaluation: Recommendations by RD: Increase Calorie Intake, Protein supplementation Comments: ensure tid whole milk w/ meals Expected Outcomes/Goals: to meet > 75% est nutr needs- met at times, goal ongoing Interpretation of weight loss: >5% in 1 month Malnutrition Findings: Weight Status: Appropriate Fluid Accumulation (Non-Severe: Mild depletion DAO CROWLEY MD May 22, 2017 09:12
--- NOTE | 2017-05-22 10:16 | RAD ---
Bilateral lower extremity venous ultrasound, 05/22/2017: History: Bilateral leg edema Duplex evaluation of the deep veins in the lower extremities was performed including grayscale, color-flow and spectral Doppler analysis. The femoral and popliteal veins demonstrate normal compressibility and normal responses to distal augmentation maneuvers. Color imaging of those vessels shows no evidence of intraluminal clot. The visualized deep veins in both calves are patent. There are borderline enlarged lymph nodes at both groin levels. On the right there is a 4.7 x 1.6 cm node. On the left there is a 4.6 x 1.5 cm node. Both nodes demonstrate normal echogenic jenae without definite pathologic infiltration. IMPRESSION: 1. There is no sonographic evidence of deep vein thrombosis in either lower extremity. 2. Borderline enlarged bilateral inguinal lymph nodes.
--- NOTE | 2017-05-22 10:38 | PDOC ---
Infectious Disease Note Subjective Subjective sleepy ROS ROS GEN: Denies fevers, chills, sweats HEENT: Denies blurred vision, sore throat CV: Denies chest pain RESP: Denies shortness of air, cough GI: Denies n/v/d NEURO: Denies confusion, dizziness MSK: Denies weakness, joint pain/swelling Vital Sign Vital Signs Vital Signs Date Time Temp Pulse Resp B/P (MAP) Pulse Ox O2 Delivery O2 Flow Rate FiO2 05/22/17 08:00 Room Air 05/22/17 07:24 96 05/22/17 07:00 98.3 105 18 114/76 (89) 98.3 Physical Exam PHYSICAL EXAM GENERAL: NAD, Alert HEENT: PERRL, OC/OP NECK: Supple, no JVD, no LN LUNGS: Clear HEART: S1S2, no gallop, no murmur ABD: Soft, NT, no organomegaly, no rebound EXT: No edema, no cyanosis [employer]UCATION: Alert, oriented x 3, no focal neurologic deficit SKIN: No rash IV: ok Labs Lab Laboratory Tests Test 05/22/17 04:50 White Blood Count 99.8 x10^3/uL (4.0-11.0) Red Blood Count 3.96 x10^6/uL (4.30-5.70) Hemoglobin 11.1 g/dL (13.0-17.5) Hematocrit 36.7 % (39.0-53.0) Mean Corpuscular Volume 93 fL (79-100) Mean Corpuscular Hemoglobin 28 pg (25-35) Mean Corpuscular Hemoglobin Concent 30 g/dL (31-37) Red Cell Distribution Width 19.5 % (11.5-14.5) Platelet Count 125 x10^3/uL (140-400) Neutrophils (%) (Auto) 4 % (31-73) Lymphocytes (%) (Auto) 86 % (24-48) Monocytes (%) (Auto) 6 % (0-9) Eosinophils (%) (Auto) 4 % (0-3) Basophils (%) (Auto) 0 % (0-3) Neutrophils # (Auto) 4.0 x10^3uL (1.8-7.7) Lymphocytes # (Auto) 85.9 x10^3/uL (1.0-4.8) Monocytes # (Auto) 5.9 x10^3/uL (0.0-1.1) Eosinophils # (Auto) 3.8 x10^3/uL (0.0-0.7) Basophils # (Auto) 0.1 x10^3/uL (0.0-0.2) Sodium Level 140 mmol/L (136-145) Potassium Level 4.6 mmol/L (3.5-5.1) Chloride Level 107 mmol/L (98-107) Carbon Dioxide Level 24 mmol/L (21-32) Anion Gap 9 (6-14) Blood Urea Nitrogen 13 mg/dL (8-26) Creatinine 1.0 mg/dL (0.7-1.3) Estimated GFR (Cockcroft-Gault) 72.6 Glucose Level 81 mg/dL (70-99) Calcium Level 8.5 mg/dL (8.5-10.1) Micro culture neg Objective Assessment Leukocytosis, etiology unclear,, lymphocytosis, ? viral infection like mono, pertussis etc, (though less likely ), abscess in retroperitoneal appears less likely, CLL is possible Recent Retroperitoneal bleed s/p embolization Recent Respiratory failure CVA Dysphagia Plan Plan of Care off antibiotics bone marrow today D/w daughter WILFRID AGUILAR MD May 22, 2017 10:38
--- NOTE | 2017-05-22 11:05 | PDOC ---
Subjective: Subjective: Onc f/u- Lymphocytosis No changes Fatigued Continued loose stool LE swelling Anticipate DC back to rehab after bmbx today Objective: Vital Signs: Vital Signs Date Time Temp Pulse Resp B/P (MAP) Pulse Ox O2 Delivery O2 Flow Rate FiO2 05/22/17 08:00 Room Air 05/22/17 07:24 96 05/22/17 07:00 98.3 105 18 114/76 (89) 98.3 Physical Exam: Extremities: Other (2+ edema b/l LE unchanged) General: Alert, No acute distress Lungs: Other (no respiratory distress) Labs/Imaging: WBC further increasing, 99.8, plt 125 125. 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 No significant organomegaly/ adenopathy on previous scans. Continual climb in WBC makes me concerned it is a more aggressive leukemia like mantle cell, which unfortunately would have a worse prognosis, and given his other comorbidities, may need hospice. CLL could potentially be treated with ibrutinib, but his ongoing diarrhea could be a concern. Mantle cell can cause diarrhea if involves GI tract (not uncommon), which would be biopsy-proven, not recommended now. Plan: - Bmbx today - F/u 1 week in clinic, need time for molecular tests to return from bmbx D/w Dr. Rucker, family for 20 min. BONNIE LOZA DO May 22, 2017 11:05
[2017-05-22] MEDS ORDERED: LIDOCAINE 1% / SOD BICARB 8.4% 20 ML VIAL. IJ ONE ×2 (11:27→12:15)
[2017-05-22] MEDS ORDERED: fentaNYL PF VIAL 250 MCG/5 ML VIAL ONE (11:52)
[2017-05-22] MEDS ORDERED: MIDAZOLAM HCL/PF 5 MG/5 ML VIAL. ONE (11:52)
--- NOTE | 2017-05-22 12:06 | PDOC3 ---
Discharge Summary [facility] Date of Admission: May 14, 2017 Discharge Date: May 22, 2017 Admitting Diagnosis Leukocytosis, etiology unclear, with possible CLL/mantle cell leukemia, less likely 2/2 infection Recent Retroperitoneal bleed s/p embolization Recent Respiratory failure h/o CVA with right leg weakness Dysphagia mild dementia, baseline PAFIB was on coumadin Problems: CONSULTS id dr. Rucker oncthais Brief Hospital Course Mr. Clancy is a 76 oldM , mild dementia, recently was here with retroperitoneal bleeding post embolization, was transferred from snf for leukocytosis. Pt feel ok, no real symptoms of infection, however, WBC keeps up every day. Pt was treated with multiple abx with ID, Onco consulted, consider CLL or mantle cell leukemia. bm bx 05/22. dc back to snf wo abx. fu with onco next week. warfarin held. dc time 35min. General: Alert, Oriented X3, No acute distress Heart: Regular rate Lungs: Clear, Other (No RRW) Abdomen: Normal bowel sounds, Other (Mild abd pain) Extremities: Other (2+ edema B/l LE) Skin: No rashes Patient History: FH: cancer Unknown Problems: Disposition snf CONDITION AT DISCHARGE: Improved, Stable Diet regular cardiac Scheduled Acetaminophen (Acetaminophen), 650 MG PO PRN, (Reported) Ascorbic Acid (Vitamin C), 500 MG PO BID, (Reported) Atorvastatin Calcium (Atorvastatin Calcium), 80 MG PO HS, (Reported) Budesonide (Pulmicort), 0.5 MG IH BID, (Reported) Docusate Sodium (Docusate Sodium), 100 MG PO PRN, (Reported) Famotidine (Famotidine), 20 MG PO DAILY, (Reported) Ferrous Sulfate (Ferrous Sulfate), 325 MG PO DAILY, (Reported) Finasteride (Proscar), 5 MG PO DAILY, (Reported) Ipratropium/Albuterol Sulfate (Duoneb 0.5-3(2.5) Mg/3 Ml), 3 ML NEB BID, ( Reported) Lactobacillus Acidophilus (Acidophilus), 1 CAP PO BIDAC, (Reported) Mag Hydrox/Al Hydrox/Simeth (Mintox Plus Tablet Chewable), 1 EACH PO Q3HRS, ( Reported) Nitroglycerin (NITROGLYCERIN SubLingual), 1 TAB SL UD, (Reported) Tamsulosin Hcl (Tamsulosin Hcl), 0.8 MG PO DAILY, (Reported) Trazodone Hcl (Trazodone Hcl), 50 MG PO HS, (Reported) Scheduled PRN Albuterol Sulfate (Proair Hfa Inhaler), 2 PUFF INH PRN Q4HRS PRN for SHORTNESS OF BREATH, (Reported) Bisacodyl (Dulcolax), 10 MG PO PRN DAILY PRN for CONSTIPATION, (Reported) Magnesium Hydroxide (Milk Of Magnesia), 2,400 MG PO PRN PRN for CONSTIPATION, ( Reported) Ondansetron Hcl (Zofran), 4 MG PO Q6HRS PRN for NAUSEA/VOMITING, (Reported) Discontinued Medications Albuterol Sulfate (Proair Hfa Inhaler), 1-2 INH IH Q4-6 HRS PRN for COUGH, ( Reported) Albuterol Sulfate (Proair Hfa), 9 GM IH, (Reported) Amoxicillin/Potassium Clav (Augmentin 875-125 Tablet), 1 TAB PO BID, (Reported) Atorvastatin Calcium (Lipitor), 80 MG PO DAILY, (Reported) Diphenhydramine Hcl (Diphenhydramine Hcl), 25 MG PO Q6HRS, (Reported) Piperacillin Sodium/Tazobactam (Zosyn 3.375 Gram Vial), 3.375 GM IV Q6HRS, ( Reported) Warfarin Sodium (Coumadin), 1 TAB PO DAILY, (Reported) Follow Up onco next week KARINA PATEL MD May 22, 2017 12:06
[2017-05-22] MEDS ORDERED: MIDAZOLAM HCL/PF 5 MG/5 ML VIAL. IV ONE (12:15)
[2017-05-22] MEDS ORDERED: fentaNYL PF VIAL 250 MCG/5 ML VIAL IV ONE (12:15)
--- NOTE | 2017-05-22 12:54 | RAD ---
CT-guided bone marrow biopsy, left iliac crest 05/22/2017 Indication: Leukocytosis Comparison study: Discussion: The risks and benefits of the procedure, including but not limited to, bleeding and infection were discussed patient. Informed consent was obtained. The patient was brought to the CT scanner and placed in the prone position. A timeout procedure was performed. Optical Instrument Repairer CT imaging of the pelvis demonstrated right ilium amenable to bone marrow biopsy. The overlying soft tissues were prepped and draped using maximum sterile barrier technique. 1% lidocaine without epinephrine was administered for local anesthesia. A trocar needle needle was advanced into the marrow space of the posterior {left iliac crest. Aspirate and core samples were obtained.. The needle was removed and pressure held until hemostasis. No complications were identified. The patient tolerated the procedure well. Procedure was performed under conscious sedation including continuous cardiopulmonary via a dedicated sedation nurse. Sedation time: 15 minutes Impression: Successful CT-guided bone marrow biopsy of the left} iliac crest
[2017-05-22] MEDS: FAMOTIDINE 20 MG TABLET. PO SCH (15:37)
[2017-05-22] MEDS: DOCUSATE SODIUM 100 MG CAPSULE. PO SCH (15:37)
[2017-05-22] MEDS: TAMSULOSIN 0.4 MG CAP.ER.24H. PO SCH (15:37)
[2017-05-22] MEDS: FINASTERIDE 5 MG TABLET. PO SCH (15:37)
[2017-05-22] MEDS: ASCORBIC ACID 500 MG TABLET PO SCH (15:37)
[2017-05-22] MEDS: FERROUS SULFATE 325 MG TABLET. PO SCH (15:38)
== END 2017-05-22 17:42 | DRG 840 ==
LOC: 5 SOUTH 09:44
PROVIDERS: ADMIT Internal Medicine; ATTEND Internal Medicine
PROC: 0D9W3ZZ Drainage of Peritoneum, Percutaneous Approach (ICD-10-PCS; principal; 2017-05-19)
PROC: 07DR3ZX Extraction of Iliac Bone Marrow, Percutaneous Approach, Diagnostic (ICD-10-PCS; 2017-05-22)
DX: C91.10 Chronic lymphocytic leukemia of B-cell type not having achieved remission (principal); E43 Unspecified severe protein-calorie malnutrition; J96.90 Respiratory failure, unspecified, unspecified whether with hypoxia or hypercapnia; G93.40 Encephalopathy, unspecified; R65.10 Systemic inflammatory response syndrome (SIRS) of non-infectious origin without acute organ dysfunction; I50.30 Unspecified diastolic (congestive) heart failure; J98.11 Atelectasis; I69.351 Hemiplegia and hemiparesis following cerebral infarction affecting right dominant side; D72.829 Elevated white blood cell count, unspecified; D50.0 Iron deficiency anemia secondary to blood loss (chronic); I25.10 Atherosclerotic heart disease of native coronary artery without angina pectoris; J44.9 Chronic obstructive pulmonary disease, unspecified; M19.90 Unspecified osteoarthritis, unspecified site; E03.9 Hypothyroidism, unspecified; G89.29 Other chronic pain; I48.0 Paroxysmal atrial fibrillation; M54.5 Low back pain; N18.3 Chronic kidney disease, stage 3 (moderate); Z79.82 Long term (current) use of aspirin; N40.0 Benign prostatic hyperplasia without lower urinary tract symptoms; G47.33 Obstructive sleep apnea (adult) (pediatric); K57.90 Diverticulosis of intestine, part unspecified, without perforation or abscess without bleeding; R13.10 Dysphagia, unspecified; D72.820 Lymphocytosis (symptomatic); F03.90 Unspecified dementia, unspecified severity, without behavioral disturbance, psychotic disturbance, mood disturbance, and anxiety; E78.5 Hyperlipidemia, unspecified; Z95.0 Presence of cardiac pacemaker; Z80.9 Family history of malignant neoplasm, unspecified; Z88.2 Allergy status to sulfonamides; Z88.8 Allergy status to other drugs, medicaments and biological substances; Z68.25 Body mass index [BMI] 25.0-25.9, adult; Z79.01 Long term (current) use of anticoagulants; Z98.49 Cataract extraction status, unspecified eye
CPT/HCPCS: 10022; 36415; 38221; 71020; 74177; 74230; 77012; 80048; 80053; 81001; 82550; 82962; 83605; 84520; 85007; 85027; 85610; 85651; 86308; 87040; 87071; 87075; 87086; 87205; 87324; 88184; 88185; 88237; 93970; 94250; 94640; 94760; 99152; G0364; J1100; J1650; J2020; J2248; J2250; J2543; J3010; J7030; J7613; J7620; J7626; Q0162; Q0163; Q9966; Q9967; 92526; 92610; 92611; 97110; 97116; 97530; 97535